=== PATIENT | female | born 1955 | race Caucasian/White ===

== ENCOUNTER → 2018-03-04 08:23 | Outpatient (CLI) | payer OTHER, SELFPAY ==
[2018-03-04 09:47] LABS: Add Manual Diff / Slide Review NO; Basophils Percent Auto 1.2 % (0-2); Eosinophils Percent Auto 9.5 % (2-4); Hemoglobin 13.5 g/dL (12.0-16.0); Lymphocytes Percent Auto 18.3 % (25-40); Mean Corpuscular HGB Conc 33.8 % (30-36); Mean Corpuscular Hemoglobin 31.4 PG (26-34); Mean Corpuscular Volume 92.8 fL (80-100); Monocytes Percent Auto 8.6 % (3-14); Neutrophils Absolute Auto 4200 /uL (3000-5900); Neutrophils Percent Auto 62.4 % (50-75); Platelet Count 216 X10^3/uL (150-400); Red Blood Cell Count 4.32 X10^6/uL (4.0-5.2); Red Cell Distribution Width 12.8 % (11.6-14.8); White Blood Cell Count 6.7 X10^3/uL (4.5-11.0)
[2018-03-04 09:48] LABS: Alanine Aminotransferase 40 IU/L (9-52); Albumin 4.3 g/dL (3.5-5.0); Alkaline Phosphatase 49 U/L (38-126); Aspartate Aminotransferase 25 IU/L (14-36); Bilirubin Total 0.5 mg/dL (0.2-1.3); Blood Urea Nitrogen 15 mg/dL (7-17); Calcium 9.7 mg/dL (8.4-10.2); Carbon Dioxide 31 mmol/L (22-32); Chloride 100 mmol/L (98-107); Cholesterol 201 mg/dL (140-199); Estimated Glomerular Filt Rate > 60.0 mL/min (>60); Globulin 2.2 g/dL (1.7-4.1); Glucose 98 mg/dL (80-110); HDL Cholesterol 66 mg/dL (40-60); HEMOLYSIS < 15 (0-50); LDL Cholesterol Calculated 97 mg/dL (<100); Potassium 4.3 mmol/L (3.4-5.1); Sodium 140 mmol/L (137-145); Total Protein 6.5 g/dL (6.3-8.2); Triglycerides 188 mg/dL (35-150)
[2018-03-04 10:44] LABS: TSH w/ Reflex to FT4 2.02 uIU/mL (0.47-4.68)
== END ==
PROVIDERS: Family Provider Family Medicine; PCP Family Medicine; Visit Provider Family Medicine
DX: E03.9 Hypothyroidism, unspecified (principal)
CPT/HCPCS: 36415; 80053; 80061; 84443; 85025

== ENCOUNTER → 2018-10-08 10:40 | Outpatient (CLI) | payer OTHER, SELFPAY ==
[2018-10-08 11:30] LABS: Blood Urea Nitrogen 16 mg/dL (7-17); Calcium 9.6 mg/dL (8.4-10.2); Carbon Dioxide 28 mmol/L (22-32); Chloride 102 mmol/L (98-107); Estimated Glomerular Filt Rate > 60.0 mL/min (>60); Glucose 105 mg/dL (80-110); HEMOLYSIS < 15 (0-50); Potassium 3.9 mmol/L (3.4-5.1); Sodium 139 mmol/L (137-145)
== END ==
PROVIDERS: Visit Provider Family Medicine
DX: Z51.81 Encounter for therapeutic drug level monitoring (principal); Z79.1 Long term (current) use of non-steroidal anti-inflammatories (NSAID)
CPT/HCPCS: 36415; 80048

== ENCOUNTER → 2019-01-08 10:32 | Outpatient (CLI) | payer OTHER, SELFPAY ==
[2019-01-08 11:23] LABS: BUN Creatinine Ratio 28.3 (6-22); Blood Urea Nitrogen 17 mg/dL (7-17); Calcium 9.8 mg/dL (8.4-10.2); Carbon Dioxide 30 mmol/L (22-32); Chloride 99 mmol/L (98-107); Estimated Glomerular Filt Rate > 60.0 mL/min (>60); Glucose 99 mg/dL (80-110); HEMOLYSIS < 15 (0-50); Sodium 138 mmol/L (137-145)
== END ==
PROVIDERS: Visit Provider Family Medicine
DX: M17.11 Unilateral primary osteoarthritis, right knee (principal); Z79.1 Long term (current) use of non-steroidal anti-inflammatories (NSAID)
CPT/HCPCS: 36415; 80048

== ENCOUNTER → 2019-04-23 14:37 | Outpatient (CLI) | payer OTHER, SELFPAY ==
[2019-04-23 15:41] LABS: Free T3, Triiodothyronine Free 2.87 pg/mL (2.77-5.27); Free T4, Direct Thyroxine 0.85 ng/dL (0.78-2.19)
[2019-04-23 15:55] LABS: Thyroid Stimulating Hormone 1.78 uIU/mL (0.47-4.68)
[2019-04-23 16:05] LABS: Alanine Aminotransferase 57 IU/L (9-52); Albumin 4.5 g/dL (3.5-5.0); Albumin Globulin Ratio 1.9 (1.0-2.8); Alkaline Phosphatase 50 U/L (38-126); Aspartate Aminotransferase 30 IU/L (14-36); BUN Creatinine Ratio 17.8 (6-22); Bilirubin Total 0.5 mg/dL (0.2-1.3); Blood Urea Nitrogen 16 mg/dL (7-17); Calcium 10.2 mg/dL (8.4-10.2); Carbon Dioxide 31 mmol/L (22-32); Chloride 100 mmol/L (98-107); Cholesterol 200 mg/dL (140-199); Estimated Glomerular Filt Rate > 60.0 mL/min (>60); Globulin 2.4 g/dL (1.7-4.1); Glucose 89 mg/dL (80-110); HDL Cholesterol 69 mg/dL (40-60); HEMOLYSIS < 15 (0-50); LDL Cholesterol Calculated 110 mg/dL (<100); Potassium 4.5 mmol/L (3.4-5.1); Sodium 141 mmol/L (137-145); Total Protein 6.9 g/dL (6.3-8.2); Triglycerides 103 mg/dL (35-150)
--- NOTE | 2019-06-18 12:23 | PC.NURSE ---
Per cali Anderson to resume Estriol cream 4-5 weeks post op. Informed pt, pt verbalizes understanding.
== END ==
PROVIDERS: PCP Family Medicine; Visit Provider Family Medicine
DX: E78.5 Hyperlipidemia, unspecified (principal); E03.9 Hypothyroidism, unspecified; I10 Essential (primary) hypertension
CPT/HCPCS: 36415; 80053; 80061; 84439; 84443; 84481

== ENCOUNTER → 2019-06-02 14:34 | Outpatient (CLI) | payer OTHER, SELFPAY ==
--- NOTE | 2019-06-02 14:38 | DI.US.S_ITS ---
PROCEDURE: US PERIPH VENOUS LOW EXTREM BI INDICATIONS: PRE-OP CHECK; HISTORY DVT TECHNIQUE: Real-time imaging, as well as color and pulse Doppler interrogation, were performed of the deep veins of both legs from the inguinal ligament to the popliteal fossa. COMPARISON: None. FINDINGS: Right: The common femoral, femoral and popliteal veins are normally compressible, and free of intraluminal thrombus. Color and pulse Doppler demonstrate normal phasic intravascular flow. There is normal augmentation response to distal compression maneuver. Left: The common femoral, femoral and popliteal veins are normally compressible, and free of intraluminal thrombus. Color and pulse Doppler demonstrate normal phasic intravascular flow. There is normal augmentation response to distal compression maneuver. IMPRESSION: Negative for deep venous thrombosis. Dictated by: Roberto Redman M.D. on 06/02/2019 at 15:47 Approved by: Roberto Redman M.D. on 06/02/2019 at 15:47
== END ==
PROVIDERS: Family Provider Family Medicine; PCP Family Medicine
DX: Z01.818 Encounter for other preprocedural examination (principal); I82.A22 Chronic embolism and thrombosis of left axillary vein
CPT/HCPCS: 93970

== ENCOUNTER → 2019-07-27 12:42 | Outpatient (ROUT) | payer OTHER, SELFPAY | PROVIDERS: Family Provider Family Medicine; PCP Family Medicine; Visit Provider Dermatology | DX: L30.4 Erythema intertrigo (principal); R21 Rash and other nonspecific skin eruption | CPT/HCPCS: 87070; 87077; 87102; 87186; 87205 ==

== ENCOUNTER → 2019-08-12 16:38 | Outpatient (CLI) | payer OTHER, SELFPAY ==
[2019-08-12 15:47] VITALS: BP 167/74; PULSE 103; RESP 15; TEMP 37.3; O2SAT 97; BMI 37.8
--- NOTE | 2019-08-12 15:50 | PC.NURSE ---
pt has healing right knee surgery. was seen at PT today, they told her to come to ED for r/o DVT. pt has history of dvt. started having right calf pain yesterday. calf appears discolored and swollen, as does above knee, and knee, area around incision.
--- NOTE | 2019-08-12 16:17 | ED.EXTPRO ---
HPI - Extremity Problem General Chief complaint: Extremity Problem,Nontraumatic Stated complaint: right calf swelling, thinks DVT Time Seen by Provider: 08/12/19 15:48 Source: patient Mode of arrival: Ambulatory Related Data Home Medications Medication Instructions Recorded Confirmed cholecalciferol (vitamin D3) 1,000 unit DAILY 05/27/19 07/20/19 [Vitamin D3] levocetirizine 5 mg DAILY 05/27/19 07/20/19 Resmed Aircurve 10 BIPAP #1 ea 06/11/19 07/20/19 atorvastatin [Lipitor] 10 mg PO BEDTIME 08/12/19 08/12/19 betamethasone dipropionate 1 applic TOPICAL DAILY 08/12/19 08/12/19 cephalexin 500 mg PO [id number] 08/12/19 08/12/19 fluconazole 150 mg PO [id number] 08/12/19 08/12/19 levothyroxine [Synthroid] 50 mcg PO DAILY 08/12/19 08/12/19 metoprolol succinate [Toprol XL] 50 mg PO DAILY 08/12/19 08/12/19 ondansetron 4 mg PO Q8H PRN 08/12/19 08/12/19 rivaroxaban [Xarelto] 10 mg PO DAILY 08/12/19 08/12/19 scopolamine base 1 mg TOPICAL Q3D 08/12/19 08/12/19 tramadol 50 - 100 mg PO Q6H PRN 08/12/19 08/12/19 triamcinolone acetonide 1 applic TOPICAL DAILY PRN 08/12/19 08/12/19 Previous Rx's Medication Instructions Recorded calcium carbonate 600 mg calcium 600 mg PO ONCE #90 tab 03/17/18 (1,500 mg) tablet [AMIT2%BACLO2%GAB5%MU] 2 % VAG 5XW #1 tube 01/22/19 estriol cream 0.2% See Rx Instructions .ROUTE 05/18/19 .COMPLEX #30 gram meloxicam 15 mg tablet 15 mg PO DAILY #90 tab 05/21/19 ketoconazole 2 % topical cream 1 applictn TOP BID #60 gram 07/27/19 Allergies Allergy/AdvReac Type Severity Reaction Status Date / Time diazepam Allergy Severe eyes Verified 08/12/19 15:47 swelled shut, hard to breath epinephrine Allergy Severe SEIZURES Verified 08/12/19 15:47 oxycodone Allergy Severe FAINTED, Verified 08/12/19 15:47 SEVERE VOMITING, DIZZINESS, LIGHT HEADED clindamycin Allergy Mild RASH Verified 08/12/19 15:47 doxycycline Allergy Unknown RASH Verified 08/12/19 15:47 azithromycin AdvReac Unknown THROW UP Verified 08/12/19 15:47 Patient History Medical History (Updated 06/11/19 @ 12:07 by MARIBEL Delgado) Abnormal Pap smear of cervix (Chronic) Acne (Resolved 1969) Anaphylactic reaction (Resolved) DVT (deep venous thrombosis) (Resolved 2013) Eczema (Chronic) Excessive daytime sleepiness (Chronic) Fibroids (Chronic) Gastro-esophageal reflux disease with esophagitis (Chronic) Hayfever (Chronic 1966) Hepatitis B (Chronic ~1976) History of ovarian cyst (Chronic) History of torn meniscus of left knee (Resolved 2012) Hyperlipidemia (Chronic) Hypothyroidism (Chronic 2009) Infertility (Chronic) Irritable larynx syndrome (Chronic) Lichen planus (Acute) Measles (Resolved) Mumps (Resolved) Obesity (BMI 30-39.9) (Chronic) Obstructive sleep apnea of adult (Chronic) Osteoarthritis (Chronic) Osteoarthritis of right knee (Chronic) PCOS (polycystic ovarian syndrome) (Chronic 1974) Plantar warts (Chronic) Postoperative pulmonary embolism (Resolved 2013) Retinal detachment, left (Resolved 2010) Retinal detachment, right (Resolved 2011) Rosacea (Resolved 2008) Shoulder pain (Chronic) Sleep apnea (Chronic ~2015) Surgical History (Updated 05/27/19 @ 11:12 by Britton Jimenez MD) Anesthesia (Resolved) History of eye surgery (Resolved 02/27/11) History of eye surgery (Resolved 05/15/12) History of knee replacement (Resolved 05/13/14) History of sinus surgery (Resolved 1987) History of surgical removal of meniscus of knee (Resolved 09/03/13) History of tonsillectomy (Resolved 1964) Status post delivery (Resolved 12/1984) Status post delivery (Resolved 06/1981) Status post endometrial ablation (Resolved 2005) Status post loop electrosurgical excision procedure (LEEP) of cervix (Resolved 01/2006) Status post surgical removal of neoplasm of skin (Resolved 1957) Social History Smoking Status: Never smoker Smoking Status: Never smoker Exam Initial Vital Signs Initial Vital Signs: Vital Signs Temperature 99.1 F 08/12/19 15:47 Pulse Rate 103 H 08/12/19 15:47 Respiratory Rate 15 08/12/19 15:47 Blood Pressure 167/74 H 08/12/19 15:47 Pulse Oximetry 97 08/12/19 15:47 Course Orders Ordered: ED Orders 08/12/19 15:54 US periph venous low extrem rt Stat Vital Signs Vital signs: Vital Signs - 8 hr 08/12/19 15:47 Temperature 99.1 F Pulse Rate 103 H Respiratory Rate 15 Blood Pressure 167/74 H Pulse Oximetry 97 Discharge Plan Departure Prescriptions: No Action [AMIT2%BACLO2%GAB5%MU] 2 % VAG 5XW Qty: 1 RF: 1 ketoconazole 2 % cream 1 applictn TOP BID Qty: 60 RF: 0 betamethasone dipropionate 0.05 % cream See Rx Instructions .ROUTE .COMPLEX Qty: 45 RF: 0 estriol cream 0.2% cream See Rx Instructions .ROUTE .COMPLEX Qty: 30 RF: 11 calcium carbonate 600 mg calcium (1,500 mg) tablet 600 mg PO ONCE Qty: 90 RF: 0 atorvastatin [Lipitor] 10 mg tablet 10 mg PO HS Qty: 90 RF: 3 levothyroxine [Synthroid] 50 mcg tablet 50 mcg PO QDAY Qty: 90 RF: 3 meloxicam 15 mg tablet 15 mg PO DAILY Qty: 90 RF: 0 metoprolol succinate [Toprol XL] 50 mg tablet extended release 24 hr 50 mg PO QDAY Qty: 90 RF: 3 cholecalciferol (vitamin D3) [Vitamin D3] 1,000 unit Tablet,Chewable 1,000 unit DAILY RF: 0 levocetirizine 5 mg 5 mg DAILY RF: 0 (DME) Resmed Aircurve 10 BIPAP Qty: 1 RF: 0
[2019-08-12 16:32] VITALS: BP 133/62; PULSE 90; RESP 19; O2SAT 100
--- NOTE | 2019-08-12 16:41 | DI.US.S_ITS ---
PROCEDURE: US PERIP VENOUS LOW EXTREM RT INDICATIONS: RIGHT CALF PAIN. R/O DVT TECHNIQUE: Real-time imaging, as well as color and pulse Doppler interrogation, were performed of the lower extremity deep veins from the inguinal ligament to the popliteal fossa. COMPARISON: [facility], , US PERIP VENOUS LOW EXTREM BI, 06/02/2019, 14:47. FINDINGS: Thrombus is identified within the popliteal vein, which does not appear to be occlusive. No thrombus is seen extending into the superficial femoral vein, profunda femoral vein, or common femoral vein. IMPRESSION: Nonocclusive deep vein thrombosis of the popliteal vein. Note: The manager fashion attempted contacting the providers office at 1725 hours (PST). A message was left on the office voicemail. No return call was received. Subsequently, the providers cellular number was contacted by the manager fashion and a voicemail was left. No return call was received by 1745 hours (PST). Dictated by: Mich Logan M.D. on 08/12/2019 at 16:53 Approved by: Mich Logan M.D. on 08/12/2019 at 16:59
== END ==
LOC: ED 15:48 → US 16:38
PROVIDERS: Family Provider Family Medicine; PCP Family Medicine; Visit Provider Physician Assistant Surgical
DX: I82.431 Acute embolism and thrombosis of right popliteal vein (principal); M79.89 Other specified soft tissue disorders
CPT/HCPCS: 93971

== ENCOUNTER → 2019-08-14 13:23 | Outpatient (CLI) | payer OTHER, SELFPAY ==
[2019-08-14 13:54] LABS: Add Manual Diff / Slide Review NO; Basophils Absolute Auto 100 /uL (0-100); Basophils Percent Auto 0.6 % (0-2); Eosinophils Absolute Auto 300 /uL (0-450); Eosinophils Percent Auto 3.6 % (2-4); Hematocrit 30.9 % (36-46); Hemoglobin 10.5 g/dL (12.0-16.0); Lymphocytes Absolute Auto 1100 /uL (1100-4500); Lymphocytes Percent Auto 14.4 % (25-40); Mean Corpuscular HGB Conc 33.9 % (30-36); Mean Corpuscular Hemoglobin 31.5 PG (26-34); Mean Corpuscular Volume 92.8 fL (80-100); Monocytes Absolute Auto 800 /uL (0-900); Monocytes Percent Auto 10.5 % (3-14); Neutrophils Absolute Auto 5600 /uL (1500-7000); Neutrophils Percent Auto 70.9 % (50-75); Platelet Count 364 X10^3/uL (150-400); Red Blood Cell Count 3.33 X10^6/uL (4.0-5.2); Red Cell Distribution Width 12.5 % (11.6-14.8); White Blood Cell Count 7.9 X10^3/uL (4.5-11.0)
[2019-08-14 14:05] LABS: Alanine Aminotransferase 58 IU/L (<35); Albumin 4.2 g/dL (3.5-5.0); Albumin Globulin Ratio 1.6 (1.0-2.8); Alkaline Phosphatase 68 U/L (38-126); Aspartate Aminotransferase 37 IU/L (14-36); BUN Creatinine Ratio 26.7 (6-22); Bilirubin Total 1.1 mg/dL (0.2-1.3); Blood Urea Nitrogen 16 mg/dL (7-17); Calcium 9.4 mg/dL (8.4-10.2); Carbon Dioxide 31 mmol/L (22-32); Chloride 97 mmol/L (98-107); Estimated Glomerular Filt Rate > 60.0 mL/min (>60); Globulin 2.7 g/dL (1.7-4.1); Glucose 109 mg/dL (80-110); HEMOLYSIS < 15 (0-50); Potassium 4.5 mmol/L (3.4-5.1); Sodium 136 mmol/L (137-145); Total Protein 6.9 g/dL (6.3-8.2)
== END ==
PROVIDERS: PCP Family Medicine; Visit Provider Family Medicine
DX: D64.9 Anemia, unspecified (principal); I10 Essential (primary) hypertension
CPT/HCPCS: 36415; 80053; 85025

== ENCOUNTER 2019-08-18 13:47 | Emergency (ER) | payer OTHER, SELFPAY ==
[2019-08-18 13:49] VITALS: BP 141/64; PULSE 112; RESP 24; TEMP 36.8; O2SAT 100
[2019-08-18 15:00] VITALS: BP 151/64; PULSE 91; RESP 17; O2SAT 97
--- NOTE | 2019-08-18 15:00 | DI.US.S_ITS ---
PROCEDURE: US PERIPH VENOUS LOW EXTREM RT INDICATIONS: H/O DVT. NOW WORSE PAIN/SWELLING. PLEASE ALSO LOOK AT JOINT TECHNIQUE: Real-time imaging, as well as color and pulse Doppler interrogation, were performed of the lower extremity deep veins from the inguinal ligament to the popliteal fossa. COMPARISON: [facility], , PERIP VENOUS LOW EXTREM RT, 08/12/2019, 16:54. FINDINGS: Occlusive thrombus is visualized within the distal right popliteal vein, unchanged from the prior study dated 08/12/19. The more central deep veins of the right lower extremity are patent. Several complex fluid collections are visualized within the subcutaneous tissues of the right lower extremity including a 4.3 x 2.5 x 2.9 cm fluid collection within the popliteal fossa, a 7.9 x 2.4 x 4.8 cm fluid collection within the distal medial right thigh, and a 7.8 x 2.2 x 2.3 cm lesion within the distal right lateral thigh. IMPRESSION: 1. Stable occlusive thrombus within the distal right popliteal vein similar in extent to the prior ultrasound dated 08/12/19. 2. Multiple subcutaneous complex fluid collection suggesting postoperative hematomas. Abscess cannot be excluded. If further characterization is warranted, MRI or CT of this region could be used. Dictated by: Katiuska Hayes M.D. on 08/18/2019 at 15:24 Approved by: Katiuska Hayes M.D. on 08/18/2019 at 15:28
[2019-08-18 15:10] LABS: INR 1.5 (0.9-1.3); Prothrombin Time 17.8 SECONDS (10.1-12.7)
--- NOTE | 2019-08-18 15:16 | ED.RECABL ---
HPI - Recheck/Abnormal Lab/Rx General Chief Complaint: Recheck/Abnormal Lab/Rx Stated Complaint: embolis,pain in back of knee after knee replacemen Time Seen by Provider: 08/18/19 13:58 Source: patient Mode of arrival: Ambulatory Limitations: no limitations History of Present Illness HPI narrative: Patient comes emergency department complaining of increased right knee pain since yesterday. Patient denies any triggering event. She states the pain seemed come up gradually. The patient is status post total right knee arthroplasty on August 06 and was diagnosed with a DVT 5 days ago in the same leg. Patient is currently on Lovenox and Coumadin and her 1st and only INR was 1.2. Patient denies any chest pain or shortness of breath. She states that she has not had any fevers. She denies any increase in swelling of the knee. No redness. No wound dehiscence or drainage. No other complaints at this time. Related Data Home Medications Medication Instructions Recorded Confirmed levocetirizine 5 mg PO DAILY 05/27/19 08/24/19 Resmed Aircurve 10 BIPAP #1 ea 06/11/19 08/24/19 atorvastatin [Lipitor] 10 mg PO BEDTIME 08/12/19 08/24/19 betamethasone dipropionate 1 applic TOPICAL DAILY 08/12/19 08/24/19 levothyroxine [Synthroid] 50 mcg PO DAILY 08/12/19 08/24/19 metoprolol succinate [Toprol XL] 50 mg PO DAILY 08/12/19 08/24/19 scopolamine base 1 mg TOPICAL Q3D 08/12/19 08/24/19 tramadol 50 - 100 mg PO Q6H PRN 08/12/19 08/24/19 triamcinolone acetonide 1 applic TOPICAL DAILY PRN 08/12/19 08/24/19 acetaminophen 650 mg PO Q6H PRN 08/18/19 08/24/19 ondansetron 4 mg PO Q8H PRN 08/24/19 08/24/19 oxycodone 5 mg PO Q6H PRN 08/24/19 08/24/19 Previous Rx's Medication Instructions Recorded [AMIT2%BACLO2%GAB5%MU] 2 % VAG 5XW #1 tube 01/22/19 estriol cream 0.2% See Rx Instructions .ROUTE 05/18/19 .COMPLEX #30 gram ketoconazole 2 % topical cream 1 applictn TOP BID #60 gram 07/27/19 enoxaparin 80 mg/0.8 mL 80 mg SUBCUT Q12H #8 ml 08/24/19 subcutaneous syringe warfarin 2.5 mg tablet 7.5 mg PO DAILY #120 tab 08/24/19 Allergies Allergy/AdvReac Type Severity Reaction Status Date / Time diazepam Allergy Severe eyes Verified 08/18/19 18:09 swelled shut, hard to breath epinephrine Allergy Severe SEIZURES Verified 08/18/19 18:09 oxycodone Allergy Severe FAINTED, Verified 08/18/19 18:09 SEVERE VOMITING, DIZZINESS, LIGHT HEADED clindamycin Allergy Mild RASH Verified 08/18/19 18:09 doxycycline Allergy Unknown RASH Verified 08/18/19 18:09 azithromycin AdvReac Unknown THROW UP Verified 08/18/19 18:09 Review of Systems Constitutional Constitutional: Denies chills, Denies fatigue, Denies fever(s), Denies frequent falls, Denies lethargy and Denies weakness Eyes Eyes: Denies change in vision, Denies eye discharge, Denies irritation and Denies loss of vision ENT Ears, Nose, Mouth, and Throat: Denies change in voice, Denies dizziness, Denies neck pain, Denies sore throat and Denies throat swelling Cardiovascular Cardiovascular: Denies chest pain, Denies irregular heart rhythm, Denies lightheadedness, Denies palpitations, Denies dyspnea, Denies dyspnea on exertion and Denies orthopnea Respiratory Respiratory: Denies cough, Denies dyspnea, Denies dyspnea on exertion and Denies wheezing Gastrointestinal Gastrointestinal: Denies abdominal pain, Denies change in bowel habits, Denies diarrhea, Denies nausea and Denies vomiting Genitourinary Genitourinary: Denies hematuria, Denies flank pain, Denies urinary incontinence and Denies urinary urgency Musculoskeletal Musculoskeletal: Denies back pain, Denies muscle weakness, Denies neck pain, Denies numbness and Denies tingling Comments: Right knee pain Integumentary/Breasts Skin/Breast: Denies pruritus, Denies erythema, Denies rash and Denies wounds Neurologic Neurologic: Denies behavioral changes, Denies confusion, Denies dizziness, Denies frequent falls, Denies loss of vision, Denies numbness, Denies tingling and Denies weakness Psychiatric Psychiatric: Denies anxiety, Denies behavioral changes, Denies confusion, Denies depression, Denies homicidal ideation and Denies suicidal ideation Endocrine Endocrine: Denies fatigue, Denies flushing and Denies palpitations Hematologic/Lymphatic Hematologic/Lymphatic: Denies easy bruising Allergic/Immunologic Allergic/Immunologic: Denies urticaria, Denies throat swelling and Denies wheezing Patient History Medical History Abnormal Pap smear of cervix (Chronic) Acne (Resolved 1969) Anaphylactic reaction (Resolved) DVT (deep venous thrombosis) (Resolved 2013) Eczema (Chronic) Excessive daytime sleepiness (Chronic) Fibroids (Chronic) Gastro-esophageal reflux disease with esophagitis (Chronic) Hayfever (Chronic 1966) Hepatitis B (Chronic ~1976) History of ovarian cyst (Chronic) History of torn meniscus of left knee (Resolved 2012) Hyperlipidemia (Chronic) Hypothyroidism (Chronic 2009) Infertility (Chronic) Irritable larynx syndrome (Chronic) Lichen planus (Acute) Measles (Resolved) Mumps (Resolved) Obesity (BMI 30-39.9) (Chronic) Obstructive sleep apnea of adult (Chronic) Osteoarthritis (Chronic) Osteoarthritis of right knee (Chronic) PCOS (polycystic ovarian syndrome) (Chronic 1974) Plantar warts (Chronic) Postoperative pulmonary embolism (Resolved 2013) Retinal detachment, left (Resolved 2010) Retinal detachment, right (Resolved 2011) Rosacea (Resolved 2008) Shoulder pain (Chronic) Sleep apnea (Chronic ~2015) Surgical History Anesthesia (Resolved) History of eye surgery (Resolved 02/27/11) History of eye surgery (Resolved 05/15/12) History of knee replacement (Resolved 05/13/14) History of sinus surgery (Resolved 1987) History of surgical removal of meniscus of knee (Resolved 09/03/13) History of tonsillectomy (Resolved 1964) Status post delivery (Resolved 12/1984) Status post delivery (Resolved 06/1981) Status post endometrial ablation (Resolved 2005) Status post loop electrosurgical excision procedure (LEEP) of cervix (Resolved 01/2006) Status post surgical removal of neoplasm of skin (Resolved 1957) Family History Father Heart disease Mother Osteoporosis Stroke Celiac disease Glaucoma COPD (chronic obstructive pulmonary disease) Emphysema lung Sister Age: 60 Alcoholic Drug abuse Hepatitis C Son No problems noted. Son [id number] transgender person PCOS (polycystic ovarian syndrome) Social History Smoking Status: Never smoker Smoking Status: Never smoker Exam Initial Vital Signs Initial Vital Signs: Vital Signs Temperature 98.2 F 08/18/19 13:49 Pulse Rate 112 H 08/18/19 13:49 Respiratory Rate 24 08/18/19 13:49 Blood Pressure 141/64 H 08/18/19 13:49 Pulse Oximetry 100 08/18/19 13:49 Const General: cooperative and well developed Nutritional Appearance: well nourished Orientation: alert, awake, oriented x3 and not confused HENMT Head: normocephalic and atraumatic Ears: external ears normal Nose: external nose normal and No nasal discharge Face and sinus: face symmetric and No dry mucous membranes Mouth: oral mucosae normal and moist mucous membranes Teeth and gingiva: dentition normal Eyes General: appearance normal, both eyes and all related structures Eyelids: eyelids normal Conjunctivae: conjunctivae normal Sclera: sclerae normal Pupils: PERRL EOM: EOM intact bilaterally Neck Neck: normal visual inspection, trachea midline, No lymphadenopathy, No midline deformity and No JVD Lymphatic: No lymphedema Chest Chest: normal inspection of the chest Resp Effort & Inspection: normal respiratory effort, able to speak in complete sentences, no respiratory distress and no use of accessory muscles Auscultation: clear to auscultation bilaterally, no rales, no rhonchi and no wheezes Cardio Rate: regular rate Rhythm: regular rhythm Heart Sounds: no click, no gallops, no murmurs and no rubs Pulses: normal peripheral pulses GI Inspection: non-distended Palpation: soft, no hepatosplenomegaly, No guarding, No pulsatile mass and No tender Back/Spine/Pelvis Back: No CVA tenderness Cervical Spine: cervical ROM normal and No pain with cervical ROM Thoracic/Lumbar Spine: thoracic and lumbar spine normal to inspection Skin General: no rashes or lesions noted, No jaundice and No petechiae Neuro General: alert, oriented x3, gait normal and no focal motor deficits Speech: speech normal Extrem Other: Patient has a vertical midline incision over her right knee with surgical dressing in place. Patient has resolving contusion around the area, but no erythema. No induration. No fluctuance. She has point tenderness over the lateral knee at the joint line anteriorly, which she indicates is the area of maximal pain. Psych Appearance: well kempt Mental Status: mental status grossly normal Attitude: cooperative Thought Content: normal and suicidality Judgment: judgment good Course Course Course Narrative: Patient was treated symptomatically with IV Toradol and Dilaudid, and evaluated with a repeat ultrasound of her right lower extremity, which did not show extension of the clot. There is no evidence of infection, and the patient did not have increased swelling to indicate a hemarthrosis or enlarging effusion. I discussed with the patient and her that her labs are unremarkable and her ultrasound shows a fluid collection around the knee, but is otherwise negative. She should continue her current regimen and follow up, as planned. She should discuss with her orthopedist whether she is clear to go back to physical therapy, as keeping the knee moving would probably be very helpful in moving some of the fluid out and maintaining the patient's range of motion. Orders Ordered: Discontinued Medications Hydrocodone Bitart/Acetaminophen (Vicodin 5/325 Prepack) 1 bottle MISC SEEINSTR ONE Stop: 08/18/19 18:09 Last Admin: 08/18/19 18:12 Dose: 1 bottle Documented by: CAM Hydromorphone HCl (Dilaudid) 0.5 mg IV NOW ONE Stop: 08/18/19 15:16 Last Admin: 08/18/19 15:34 Dose: 0.5 mg Documented by: VANESSA Hydromorphone HCl (Dilaudid) 0.5 mg IV NOW ONE Stop: 08/18/19 16:42 Last Admin: 08/18/19 16:47 Dose: 0.5 mg Documented by: GUZMAN Ketorolac Tromethamine (Toradol) 15 mg IV NOW ONE Stop: 08/18/19 15:16 Last Admin: 08/18/19 15:33 Dose: 15 mg Documented by: VANESSA Vital Signs Vital signs: Vital Signs - 8 hr 08/18/19 13:49 Temperature 98.2 F Pulse Rate 112 H Respiratory Rate 24 Blood Pressure 141/64 H Pulse Oximetry 100 MDM - Recheck/Abnormal Lab/Rx Medical Records Attestation: I reviewed the patient's medical records. Lab Data Attestation: I reviewed the patient's lab results. Result diagrams: 08/18/19 14:56 08/18/19 14:56 Labs: Lab Results 08/18/19 08/18/19 08/18/19 Range/Units 14:56 14:56 14:56 WBC 11.4 H (4.5-11.0) X10^3/uL RBC 3.22 L (4.0-5.2) X10^6/uL Hgb 10.5 L (12.0-16.0) g/dL Hct 29.4 L (36-46) % MCV 91.2 (80-100) fL MCH 32.5 (26-34) PG MCHC 35.6 (30-36) % RDW 12.8 (11.6-14.8) % Plt Count 384 (150-400) X10^3/uL Neut % (Auto) 77.2 H (50-75) % Lymph % (Auto) 10.4 L (25-40) % Edmonson % (Auto) 8.9 (3-14) % Eos % (Auto) 2.7 (2-4) % Baso % (Auto) 0.8 (0-2) % Neut # (Auto) 8800 H (7167-3182) /uL Lymph # (Auto) 1200 (6688-7399) /uL Edmonson # (Auto) 1000 H (0-900) /uL Eos # (Auto) 300 (0-450) /uL Baso # (Auto) 100 (0-100) /uL ESR 64 H (0-20) MM/HR PT 17.8 H (10.1-12.7) SECONDS INR 1.5 H (0.9-1.3) Sodium (137-145) mmol/L Potassium (3.4-5.1) mmol/L Chloride (98-107) mmol/L Carbon Dioxide (22-32) mmol/L BUN (7-17) mg/dL Creatinine (0.52-1.04) mg/dL Estimated GFR (>60) mL/min BUN/Creatinine Ratio (6-22) Glucose (80-110) mg/dL Calcium (8.4-10.2) mg/dL Total Bilirubin (0.2-1.3) mg/dL AST (14-36) IU/L ALT (<35) IU/L Alkaline Phosphatase (38-126) U/L C-Reactive Protein (<1.0) mg/dL Total Protein (6.3-8.2) g/dL Albumin (3.5-5.0) g/dL Globulin (1.7-4.1) g/dL Albumin/Globulin Ratio (1.0-2.8) Procalcitonin < 0.05 (<0.5) ng/mL 08/18/19 Range/Units 14:56 WBC (4.5-11.0) X10^3/uL RBC (4.0-5.2) X10^6/uL Hgb (12.0-16.0) g/dL Hct (36-46) % MCV (80-100) fL MCH (26-34) PG MCHC (30-36) % RDW (11.6-14.8) % Plt Count (150-400) X10^3/uL Neut % (Auto) (50-75) % Lymph % (Auto) (25-40) % Edmonson % (Auto) (3-14) % Eos % (Auto) (2-4) % Baso % (Auto) (0-2) % Neut # (Auto) (3635-7607) /uL Lymph # (Auto) (3165-2834) /uL Edmonson # (Auto) (0-900) /uL Eos # (Auto) (0-450) /uL Baso # (Auto) (0-100) /uL ESR (0-20) MM/HR PT (10.1-12.7) SECONDS INR (0.9-1.3) Sodium 136 L (137-145) mmol/L Potassium 4.1 (3.4-5.1) mmol/L Chloride 97 L (98-107) mmol/L Carbon Dioxide 30 (22-32) mmol/L BUN 19 H (7-17) mg/dL Creatinine 0.60 (0.52-1.04) mg/dL Estimated GFR > 60.0 (>60) mL/min BUN/Creatinine Ratio 31.7 H (6-22) Glucose 89 (80-110) mg/dL Calcium 9.9 (8.4-10.2) mg/dL Total Bilirubin 0.8 (0.2-1.3) mg/dL AST 43 H (14-36) IU/L ALT 71 H (<35) IU/L Alkaline Phosphatase 75 (38-126) U/L C-Reactive Protein 2.7 H (<1.0) mg/dL Total Protein 7.2 (6.3-8.2) g/dL Albumin 4.5 (3.5-5.0) g/dL Globulin 2.7 (1.7-4.1) g/dL Albumin/Globulin Ratio 1.7 (1.0-2.8) Procalcitonin (<0.5) ng/mL Imaging Data US - DVT: Radiologist's Impression: PROCEDURE: US PERIP VENOUS LOW EXTREM RT INDICATIONS: H/O DVT. NOW WORSE PAIN/SWELLING. PLEASE ALSO LOOK AT JOINT TECHNIQUE: Real-time imaging, as well as color and pulse Doppler interrogation, were performed of the lower extremity deep veins from the inguinal ligament to the popliteal fossa. COMPARISON: [facility] [place], US PERIP VENOUS LOW EXTREM RT, 08/12/2019, 16:54. FINDINGS: Occlusive thrombus is visualized within the distal right popliteal vein, unchanged from the prior study dated 08/12/19. The more central deep veins of the right lower extremity are patent. Several complex fluid collections are visualized within the subcutaneous tissues of the right lower extremity including a 4.3 x 2.5 x 2.9 cm fluid collection within the popliteal fossa, a 7.9 x 2.4 x 4.8 cm fluid collection within the distal medial right thigh, and a 7.8 x 2.2 x 2.3 cm lesion within the distal right lateral thigh. IMPRESSION: 1. Stable occlusive thrombus within the distal right popliteal vein similar in extent to the prior ultrasound dated 08/12/19. 2. Multiple subcutaneous complex fluid collection suggesting postoperative hematomas. Abscess cannot be excluded. If further characterization is warranted, MRI or CT of this region could be used. Dictated by: Katiuska Hayes M.D. on 08/18/2019 at 15:24 Approved by: Katiuska Hayes M.D. on 08/18/2019 at 15:28 Discharge Plan Departure Patient Disposition: Home Clinical Impression: Post-op pain DVT (deep venous thrombosis) Qualifiers: DVT location: lower extremity Affected thrombotic vein of extremity: popliteal Chronicity: chronic Laterality: right Qualified Code(s): I82.531 - Chronic embolism and thrombosis of right popliteal vein Discharge Date/Time: 08/18/19 18:21 Instructions: DI for Deep Vein Thrombosis Activity Restrictions/Additional Instructions: Your ultrasound shows that you do not have any worsening of the clot in your leg. You have some fluid around your knee which is most likely postoperative in nature. There is no sign of infection. It is important is that you keep your knee moving to some degree, in order to prevent stiffening and worsening of pain. You will need to work with your orthopedist on how much they would like you to do this in the setting of your recent surgery and your recent diagnosis of blood clot. Please continue the blood thinners as prescribed. Take the pain medication, as needed. Prescriptions: No Action [AMIT2%BACLO2%GAB5%MU] 2 % VAG 5XW Qty: 1 RF: 1 ketoconazole 2 % cream 1 applictn TOP BID Qty: 60 RF: 0 estriol cream 0.2% cream See Rx Instructions .ROUTE .COMPLEX Qty: 30 RF: 11 warfarin 2.5 mg tablet 7.5 mg PO DAILY Qty: 120 RF: 0 enoxaparin 80 mg/0.8 mL syringe 80 mg SUBCUT Q12H Qty: 8 RF: 0 levocetirizine 5 mg Tablet 5 mg PO DAILY RF: 0 tramadol 50 mg tablet 50 - 100 mg PO Q6H PRN (Reason: pain) RF: 0 triamcinolone acetonide 0.1 % ointment 1 applic TOPICAL DAILY PRN (Reason: Dry Skin) RF: 0 betamethasone dipropionate 0.05 % cream 1 applic TOPICAL DAILY RF: 0 scopolamine base 1 mg over 3 days patch 3 day 1 mg topical Q3D RF: 0 atorvastatin [Lipitor] 10 mg tablet 10 mg PO BEDTIME RF: 0 metoprolol succinate [Toprol XL] 50 mg tablet extended release 24 hr 50 mg PO DAILY RF: 0 levothyroxine [Synthroid] 50 mcg tablet 50 mcg PO DAILY RF: 0 acetaminophen 325 mg Tablet 650 mg PO Q6H PRN (Reason: pain) RF: 0 ondansetron 4 mg Tablet,Disintegrating 4 mg PO Q8H PRN (Reason: Nausea) RF: 0 oxycodone 5 mg Tablet 5 mg PO Q6H PRN (Reason: pain) RF: 0 (DME) Resmed Aircurve 10 BIPAP Qty: 1 RF: 0 Referrals: Carly Kong DO [Primary Care Provider] -
[2019-08-18 15:17] LABS: Alanine Aminotransferase 71 IU/L (<35); Albumin 4.5 g/dL (3.5-5.0); Albumin Globulin Ratio 1.7 (1.0-2.8); Alkaline Phosphatase 75 U/L (38-126); Aspartate Aminotransferase 43 IU/L (14-36); BUN Creatinine Ratio 31.7 (6-22); Bilirubin Total 0.8 mg/dL (0.2-1.3); Blood Urea Nitrogen 19 mg/dL (7-17); C-Reactive Protein Quant 2.7 mg/dL (<1.0); Calcium 9.9 mg/dL (8.4-10.2); Carbon Dioxide 30 mmol/L (22-32); Chloride 97 mmol/L (98-107); Estimated Glomerular Filt Rate > 60.0 mL/min (>60); Globulin 2.7 g/dL (1.7-4.1); Glucose 89 mg/dL (80-110); HEMOLYSIS < 15 (0-50); Potassium 4.1 mmol/L (3.4-5.1); Sodium 136 mmol/L (137-145); Total Protein 7.2 g/dL (6.3-8.2)
[2019-08-18 15:20] LABS: Erythrocyte Sedimentation Rate 64 MM/HR (0-20)
[2019-08-18 15:22] LABS: Add Manual Diff / Slide Review NO; Basophils Absolute Auto 100 /uL (0-100); Basophils Percent Auto 0.8 % (0-2); Eosinophils Absolute Auto 300 /uL (0-450); Eosinophils Percent Auto 2.7 % (2-4); Hematocrit 29.4 % (36-46); Hemoglobin 10.5 g/dL (12.0-16.0); Lymphocytes Absolute Auto 1200 /uL (1100-4500); Lymphocytes Percent Auto 10.4 % (25-40); Mean Corpuscular HGB Conc 35.6 % (30-36); Mean Corpuscular Hemoglobin 32.5 PG (26-34); Mean Corpuscular Volume 91.2 fL (80-100); Monocytes Absolute Auto 1000 /uL (0-900); Monocytes Percent Auto 8.9 % (3-14); Neutrophils Absolute Auto 8800 /uL (1500-7000); Neutrophils Percent Auto 77.2 % (50-75); Platelet Count 384 X10^3/uL (150-400); Red Blood Cell Count 3.22 X10^6/uL (4.0-5.2); Red Cell Distribution Width 12.8 % (11.6-14.8); White Blood Cell Count 11.4 X10^3/uL (4.5-11.0)
[2019-08-18 15:30] VITALS: PULSE 90; RESP 15; O2SAT 98
[2019-08-18] MEDS: KETOROLAC 60 MG/2 ML VIAL 15 MG IV (15:33)
[2019-08-18] MEDS: HYDROMORPHONE 0.5 MG INJ IV ×2 (15:34→16:47)
[2019-08-18 16:03] LABS: Procalcitonin < 0.05 ng/mL (<0.5)
[2019-08-18 16:27] VITALS: BP 166/67; PULSE 84; RESP 16; O2SAT 96
[2019-08-18 17:55] VITALS: BP 171/77; PULSE 88; RESP 14
[2019-08-18] MEDS: HYDROCODONE/ACET 5/325 PREPACK 1 BOTTLE MISC (18:12)
--- NOTE | 2019-08-18 18:18 | PC.NURSE ---
Pt / upset that we can not give po dilaudid to go home. Discussed other options. She states that she has gotten nauseas with norco in the past but has zofran at home to be able to tolerate it. Given pre pack of norco to go. Pt / further concerned that it is only 4 tablets. Discussed limitations of ability to dispense medications. Discussed that there was a 24 hour pharmacy in [place] if need arises.
== END 2019-08-18 18:21 | disposition home or self-care (01) ==
PROVIDERS: Emergency Provider Emergency Medicine; PCP Family Medicine
DX: G89.18 Other acute postprocedural pain (principal); I82.531 Chronic embolism and thrombosis of right popliteal vein; Z79.01 Long term (current) use of anticoagulants
CPT/HCPCS: 36415; 80053; 84145; 85025; 85610; 85651; 86140; 93971; 96374; 96375; 96376; 99284; J1170; J1885

== ENCOUNTER 2019-08-20 03:13 | Emergency (ER) | payer OTHER, SELFPAY ==
[2019-08-20 03:15] VITALS: BP 177/90; PULSE 106; RESP 16; TEMP 36.8; O2SAT 100; BMI 36.1
--- NOTE | 2019-08-20 03:22 | ED_ITS ---
HPI - Extremity Injury (Lower) General Chief Complaint: Extremity Problem,Nontraumatic Stated Complaint: severe pain rt knee replacement Time Seen by Provider: 08/20/19 03:15 Source: patient and family Mode of arrival: Wheelchair Limitations: no limitations History of Present Illness HPI Narrative: 64F nonsmokeer with history of hyperlipidemia, recent R total knee in [place] with post op DVT on coumadin presents with ongoing R knee pain. She denies any injury, twisting, or swelling. She was seen on 08/18 and pain was controlled in the ED. She was given hydrocodone prepack and an Rx for Dilaudid, but she couldn't get it filled due to the holiday. She is here today because she only has 1/2 of a vicodin left and has terrible pain. She has an appointment today with her orthopedic office. She denies other symptoms such as dizziness, weakness or lightheadedness. She denies any chest pain or shortness of breath. She denies any numbness, tingling or weakness. MD complaint: knee injury Onset (ago): day(s) Severity: severe Relieving factors: rest Exacerbating factors: weight bearing, movement and palpation Other symptoms: none Related Data Home Medications Medication Instructions Recorded Confirmed levocetirizine 5 mg PO DAILY 05/27/19 08/18/19 Resmed Aircurve 10 BIPAP #1 ea 06/11/19 08/18/19 atorvastatin [Lipitor] 10 mg PO BEDTIME 08/12/19 08/18/19 betamethasone dipropionate 1 applic TOPICAL DAILY 08/12/19 08/18/19 levothyroxine [Synthroid] 50 mcg PO DAILY 08/12/19 08/18/19 metoprolol succinate [Toprol XL] 50 mg PO DAILY 08/12/19 08/18/19 scopolamine base 1 mg TOPICAL Q3D 08/12/19 08/18/19 tramadol 50 - 100 mg PO Q6H PRN 08/12/19 08/18/19 triamcinolone acetonide 1 applic TOPICAL DAILY PRN 08/12/19 08/18/19 acetaminophen 650 mg PO Q6H PRN 08/18/19 08/18/19 warfarin 5 mg PO DAILY 08/18/19 08/18/19 Previous Rx's Medication Instructions Recorded [AMIT2%BACLO2%GAB5%MU] 2 % VAG 5XW #1 tube 01/22/19 estriol cream 0.2% See Rx Instructions .ROUTE 05/18/19 .COMPLEX #30 gram ketoconazole 2 % topical cream 1 applictn TOP BID #60 gram 07/27/19 enoxaparin 80 mg/0.8 mL 80 mg SUBCUT Q12H #8 ml 08/17/19 subcutaneous syringe hydromorphone [Dilaudid] 1 mg PO Q6H PRN #10 tab 08/18/19 Allergies Allergy/AdvReac Type Severity Reaction Status Date / Time diazepam Allergy Severe eyes Verified 08/18/19 18:09 swelled shut, hard to breath epinephrine Allergy Severe SEIZURES Verified 08/18/19 18:09 oxycodone Allergy Severe FAINTED, Verified 08/18/19 18:09 SEVERE VOMITING, DIZZINESS, LIGHT HEADED clindamycin Allergy Mild RASH Verified 08/18/19 18:09 doxycycline Allergy Unknown RASH Verified 08/18/19 18:09 azithromycin AdvReac Unknown THROW UP Verified 08/18/19 18:09 Review of Systems Constitutional Constitutional: Denies chills, Denies fatigue, Denies fever(s), Denies frequent falls, Denies lethargy and Denies weakness Eyes Eyes: Denies change in vision, Denies eye discharge, Denies irritation and Denies loss of vision ENT Ears, Nose, Mouth, and Throat: Denies change in voice, Denies dizziness, Denies neck pain, Denies sore throat and Denies throat swelling Cardiovascular Cardiovascular: Denies chest pain, Denies irregular heart rhythm, Denies lightheadedness, Denies palpitations, Denies dyspnea, Denies dyspnea on exertion and Denies orthopnea Respiratory Respiratory: Denies cough, Denies dyspnea, Denies dyspnea on exertion and Denies wheezing Gastrointestinal Gastrointestinal: Denies abdominal pain, Denies change in bowel habits, Denies diarrhea, Denies nausea and Denies vomiting Genitourinary Genitourinary: Denies hematuria, Denies flank pain, Denies urinary incontinence and Denies urinary urgency Musculoskeletal Musculoskeletal: Denies back pain, Reports joint swelling, Reports limited range of motion, Denies muscle weakness, Denies neck pain, Denies numbness and Denies tingling Integumentary/Breasts Skin/Breast: Denies pruritus, Denies erythema, Denies rash and Denies wounds Neurologic Neurologic: Denies behavioral changes, Denies confusion, Denies dizziness, Denies frequent falls, Denies loss of vision, Denies numbness, Denies tingling and Denies weakness Psychiatric Psychiatric: Denies anxiety, Denies behavioral changes, Denies confusion, Denies depression, Denies homicidal ideation and Denies suicidal ideation Endocrine Endocrine: Denies fatigue, Denies flushing and Denies palpitations Hematologic/Lymphatic Hematologic/Lymphatic: Denies easy bruising Allergic/Immunologic Allergic/Immunologic: Denies urticaria, Denies throat swelling and Denies wheezing Patient History Medical History Abnormal Pap smear of cervix (Chronic) Acne (Resolved 1969) Anaphylactic reaction (Resolved) DVT (deep venous thrombosis) (Resolved 2013) Eczema (Chronic) Excessive daytime sleepiness (Chronic) Fibroids (Chronic) Gastro-esophageal reflux disease with esophagitis (Chronic) Hayfever (Chronic 1966) Hepatitis B (Chronic ~1976) History of ovarian cyst (Chronic) History of torn meniscus of left knee (Resolved 2012) Hyperlipidemia (Chronic) Hypothyroidism (Chronic 2009) Infertility (Chronic) Irritable larynx syndrome (Chronic) Lichen planus (Acute) Measles (Resolved) Mumps (Resolved) Obesity (BMI 30-39.9) (Chronic) Obstructive sleep apnea of adult (Chronic) Osteoarthritis (Chronic) Osteoarthritis of right knee (Chronic) PCOS (polycystic ovarian syndrome) (Chronic 1974) Plantar warts (Chronic) Postoperative pulmonary embolism (Resolved 2013) Retinal detachment, left (Resolved 2010) Retinal detachment, right (Resolved 2011) Rosacea (Resolved 2008) Shoulder pain (Chronic) Sleep apnea (Chronic ~2015) Surgical History Anesthesia (Resolved) History of eye surgery (Resolved 02/27/11) History of eye surgery (Resolved 05/15/12) History of knee replacement (Resolved 05/13/14) History of sinus surgery (Resolved 1987) History of surgical removal of meniscus of knee (Resolved 09/03/13) History of tonsillectomy (Resolved 1964) Status post delivery (Resolved 12/1984) Status post delivery (Resolved 06/1981) Status post endometrial ablation (Resolved 2005) Status post loop electrosurgical excision procedure (LEEP) of cervix (Resolved 01/2006) Status post surgical removal of neoplasm of skin (Resolved 1957) Family History Father Heart disease Mother Osteoporosis Stroke Celiac disease Glaucoma COPD (chronic obstructive pulmonary disease) Emphysema lung Sister Age: 60 Alcoholic Drug abuse Hepatitis C Son No problems noted. Son [id number] transgender person PCOS (polycystic ovarian syndrome) Social History Smoking Status: Never smoker Smoking Status: Never smoker Exam Narrative Exam Narrative: GEN: 64F, appears younger than stated age. AOx3 and in obvious pain EYES: Pupils are equal, round, and reactive to light and accommodation. Extraoccular muscles are intact bilaterally. There is no subconjunctival hemorrhage or exudate. CHEST: Lungs are clear to auscultation bilaterally and free of wheezes, rales, or rhonchi. Heart rate is regular rhythm, there are no murmurs, clicks, rubs, or gallops. There is no chest wall tenderness. ABD: Abdomen is soft and nontender. There is no guarding or rebound. Bowel sounds are normal in all 4 quadrants. There is no mass or organomegaly. EXT: Decreased range of motion secondary to pain. Vertical incision over right knee expected yellowish and purple bruising. Incision is clean, dry and intact. SKIN: Warm, pink, and dry. No erythema or rash other than that which is mentioned above Initial Vital Signs Initial Vital Signs: Vital Signs Temperature 98.3 F 08/20/19 03:15 Pulse Rate 106 H 08/20/19 03:15 Respiratory Rate 16 08/20/19 03:15 Blood Pressure 177/90 H 08/20/19 03:15 Pulse Oximetry 100 08/20/19 03:15 Course Orders Ordered: Discontinued Medications Hydrocodone Bitart/Acetaminophen (Vicodin 5/325 Prepack) 1 bottle MISC SEEINSTR ONE Stop: 08/20/19 05:43 Last Admin: 08/20/19 05:53 Dose: 1 bottle Documented by: SOFIE Hydromorphone HCl (Dilaudid) 1 mg IM NOW ONE Stop: 08/20/19 03:45 Last Admin: 08/20/19 04:02 Dose: 1 mg Documented by: SOFIE Hydromorphone HCl (Dilaudid) 1 mg IM NOW ONE Stop: 08/20/19 04:33 Last Admin: 08/20/19 04:35 Dose: 1 mg Documented by: PRASHANT Reevaluation(s) Reevaluation #1: Little improvement after Dilaudid 1 mg IM, 2nd round given. Patient did quite well. Time: 04:34 Vital Signs Vital signs: Vital Signs - 8 hr 08/20/19 03:15 08/20/19 05:57 Temperature 98.3 F 98.1 F Pulse Rate 106 H 93 H Respiratory Rate 16 18 Blood Pressure 177/90 H 152/77 H Pulse Oximetry 100 96 MDM - Extremity Injury (Lower) MDM Narrative Medical decision making narrative: Patient reports increasing pain but very little access to pain control. She was unable to get her prescriptions filled given the holiday. She denies any injury or overuse. Her exam is very reassuring. We discussed the utility of labs and imaging but sure the opinion they're unlikely to change the course. Patient has a known appointment later today with Orthopedics and we discussed various pain control regimens given her access to the medications including another prepack as well as the prescription written few days ago. She has been given return precautions and had her questions answered to her apparent satisfaction Discharge Plan Departure Patient Disposition: Home Clinical Impression: Post-op pain Discharge Date/Time: 08/20/19 05:57 Instructions: DI for Postoperative Pain Activity Restrictions/Additional Instructions: *You have been diagnosed with [postoperative knee pain] *What to do: *Take medications as directed: Please take 2 of the hydrocodone tablets when you get home, ideally this will care you until you can get the Dilaudid prescription filled at 9:00 a.m.. Do not take other Tylenol containing products when you are taking the hydrocodone tablets we're giving you as they contain Tylenol themselves *Follow up with your orthopedist later in the day as planned *Return to ER if you should have any new, worsening or concerning symptoms Prescriptions: No Action [AMIT2%BACLO2%GAB5%MU] 2 % VAG 5XW Qty: 1 RF: 1 ketoconazole 2 % cream 1 applictn TOP BID Qty: 60 RF: 0 estriol cream 0.2% cream See Rx Instructions .ROUTE .COMPLEX Qty: 30 RF: 11 enoxaparin 80 mg/0.8 mL syringe 80 mg SUBCUT Q12H Qty: 8 RF: 0 levocetirizine 5 mg Tablet 5 mg PO DAILY RF: 0 tramadol 50 mg tablet 50 - 100 mg PO Q6H PRN (Reason: pain) RF: 0 triamcinolone acetonide 0.1 % ointment 1 applic TOPICAL DAILY PRN (Reason: Dry Skin) RF: 0 betamethasone dipropionate 0.05 % cream 1 applic TOPICAL DAILY RF: 0 scopolamine base 1 mg over 3 days patch 3 day 1 mg topical Q3D RF: 0 atorvastatin [Lipitor] 10 mg tablet 10 mg PO BEDTIME RF: 0 metoprolol succinate [Toprol XL] 50 mg tablet extended release 24 hr 50 mg PO DAILY RF: 0 levothyroxine [Synthroid] 50 mcg tablet 50 mcg PO DAILY RF: 0 warfarin 2.5 mg Tablet 5 mg PO DAILY RF: 0 acetaminophen 325 mg Tablet 650 mg PO Q6H PRN (Reason: pain) RF: 0 hydromorphone [Dilaudid] 2 mg tablet 1 mg PO Q6H PRN (Reason: pain) Qty: 10 RF: 0 (DME) Resmed Aircurve 10 BIPAP Qty: 1 RF: 0 Referrals: Carly Kong DO [Primary Care Provider] -
[2019-08-20] MEDS: HYDROMORPHONE 1 MG INJ IM ×2 (04:02→04:35)
[2019-08-20] MEDS: HYDROCODONE/ACET 5/325 PREPACK 1 BOTTLE MISC (05:53)
[2019-08-20 05:57] VITALS: BP 152/77; PULSE 93; RESP 18; TEMP 36.7; O2SAT 96
== END 2019-08-20 05:57 | disposition home or self-care (01) ==
PROVIDERS: Emergency Provider Emergency Medicine; PCP Family Medicine
DX: G89.18 Other acute postprocedural pain (principal); M25.561 Pain in right knee
CPT/HCPCS: 96372; 99281; 99283; J1170

== ENCOUNTER 2019-08-24 11:16 | Emergency (ER) | payer OTHER, SELFPAY ==
[2019-08-24 11:27] VITALS: BP 142/76; PULSE 116; RESP 98; TEMP 36.7; O2SAT 100
--- NOTE | 2019-08-24 13:13 | ED.ABDPAIN ---
HPI - Abdominal Pain General Chief Complaint: Abdominal Pain Stated Complaint: Pain in bowels,recent surgery Time Seen by Provider: 08/24/19 13:08 Source: patient Mode of arrival: Ambulatory Limitations: no limitations History of Present Illness HPI narrative: Patient is 64-year-old female who presents with constipation. She has been on pain medication for recent knee surgery. She feels like she has stool in her rectum and that there is a large piece stuck. She has done 2 enemas today she has been taking senna on a regular basis she took milk of magnesia and prune juice. She continued to feel pressure in her rectum. She has no nausea vomiting or abdominal pain. No fevers or chills. Related Data Home Medications Medication Instructions Recorded Confirmed levocetirizine 5 mg PO DAILY 05/27/19 08/24/19 Resmed Aircurve 10 BIPAP #1 ea 06/11/19 08/24/19 atorvastatin [Lipitor] 10 mg PO BEDTIME 08/12/19 08/24/19 betamethasone dipropionate 1 applic TOPICAL DAILY 08/12/19 08/24/19 levothyroxine [Synthroid] 50 mcg PO DAILY 08/12/19 08/24/19 metoprolol succinate [Toprol XL] 50 mg PO DAILY 08/12/19 08/24/19 scopolamine base 1 mg TOPICAL Q3D 08/12/19 08/24/19 tramadol 50 - 100 mg PO Q6H PRN 08/12/19 08/24/19 triamcinolone acetonide 1 applic TOPICAL DAILY PRN 08/12/19 08/24/19 acetaminophen 650 mg PO Q6H PRN 08/18/19 08/24/19 ondansetron 4 mg PO Q8H PRN 08/24/19 08/24/19 oxycodone 5 mg PO Q6H PRN 08/24/19 08/24/19 Previous Rx's Medication Instructions Recorded [AMIT2%BACLO2%GAB5%MU] 2 % VAG 5XW #1 tube 01/22/19 estriol cream 0.2% See Rx Instructions .ROUTE 05/18/19 .COMPLEX #30 gram ketoconazole 2 % topical cream 1 applictn TOP BID #60 gram 07/27/19 enoxaparin 80 mg/0.8 mL 80 mg SUBCUT Q12H #8 ml 08/24/19 subcutaneous syringe warfarin 2.5 mg tablet 7.5 mg PO DAILY #120 tab 08/24/19 Allergies Allergy/AdvReac Type Severity Reaction Status Date / Time diazepam Allergy Severe eyes Verified 08/18/19 18:09 swelled shut, hard to breath epinephrine Allergy Severe SEIZURES Verified 08/18/19 18:09 oxycodone Allergy Severe FAINTED, Verified 08/18/19 18:09 SEVERE VOMITING, DIZZINESS, LIGHT HEADED clindamycin Allergy Mild RASH Verified 08/18/19 18:09 doxycycline Allergy Unknown RASH Verified 08/18/19 18:09 azithromycin AdvReac Unknown THROW UP Verified 08/18/19 18:09 Review of Systems Review of Systems Narrative: GENERAL: Denies chills, fatigue, malaise, fever, sweats, travel HEENT: Denies sinus pain, ear pain, sore throat, difficulty swallowing, neck pain RESPIRATORY: Denies dyspnea, cough, wheezing, hemoptysis, sputum. CARDIOVASCULAR: Denies chest pain, palpitations, orthopnea, edema GASTROINTESTINAL: See HPI : Denies dysuria, frequency, incontinence, hematuria, urinary retention, flank pain. MUSCULOSKELETAL: Denies weakness, joint pain, or bony pain SKIN: No rash, no erythema, no pruritus NEUROLOGIC: Denies weakness, dizziness, headache, numbness, change in speech, confusion PSYCHIATRIC: No concerning psychosocial issues. 12 point review of systems is negative except for those stated above and HPI Patient History Medical History Abnormal Pap smear of cervix (Chronic) Acne (Resolved 1969) Anaphylactic reaction (Resolved) DVT (deep venous thrombosis) (Resolved 2013) Eczema (Chronic) Excessive daytime sleepiness (Chronic) Fibroids (Chronic) Gastro-esophageal reflux disease with esophagitis (Chronic) Hayfever (Chronic 1966) Hepatitis B (Chronic ~1976) History of ovarian cyst (Chronic) History of torn meniscus of left knee (Resolved 2012) Hyperlipidemia (Chronic) Hypothyroidism (Chronic 2009) Infertility (Chronic) Irritable larynx syndrome (Chronic) Lichen planus (Acute) Measles (Resolved) Mumps (Resolved) Obesity (BMI 30-39.9) (Chronic) Obstructive sleep apnea of adult (Chronic) Osteoarthritis (Chronic) Osteoarthritis of right knee (Chronic) PCOS (polycystic ovarian syndrome) (Chronic 1974) Plantar warts (Chronic) Postoperative pulmonary embolism (Resolved 2013) Retinal detachment, left (Resolved 2010) Retinal detachment, right (Resolved 2011) Rosacea (Resolved 2008) Shoulder pain (Chronic) Sleep apnea (Chronic ~2015) Surgical History Anesthesia (Resolved) History of eye surgery (Resolved 02/27/11) History of eye surgery (Resolved 05/15/12) History of knee replacement (Resolved 05/13/14) History of sinus surgery (Resolved 1987) History of surgical removal of meniscus of knee (Resolved 09/03/13) History of tonsillectomy (Resolved 1964) Status post delivery (Resolved 12/1984) Status post delivery (Resolved 06/1981) Status post endometrial ablation (Resolved 2005) Status post loop electrosurgical excision procedure (LEEP) of cervix (Resolved 01/2006) Status post surgical removal of neoplasm of skin (Resolved 1957) Family History Father Heart disease Mother Osteoporosis Stroke Celiac disease Glaucoma COPD (chronic obstructive pulmonary disease) Emphysema lung Sister Age: 60 Alcoholic Drug abuse Hepatitis C Son No problems noted. Son [id number] transgender person PCOS (polycystic ovarian syndrome) Social History Smoking Status: Never smoker Smoking Status: Never smoker alcohol intake frequency: holidays/special occasions only Substance Use Type: does not use Exam Initial Vital Signs Initial Vital Signs: Vital Signs Temperature 98.0 F 08/24/19 11:27 Pulse Rate 116 H 08/24/19 11:27 Respiratory Rate 98 H 08/24/19 11:27 Blood Pressure 142/76 H 08/24/19 11:27 Pulse Oximetry 100 08/24/19 11:27 GENERAL: Well-appearing, well-nourished and in no acute distress. HEENT: Head atraumatic,EOMI, pupils reactive, face symmetric CARDIOVASCULAR: Regular rate and rhythm without murmurs, rubs or gallops. RESPIRATORY: Breath sounds equal bilaterally, no wheezes rales or rhonchi. ABDOMEN: Soft, nontender. Normoactive bowel sounds all 4 quadrants. No guarding or rebound. RECTAL: Hemoccult-positive, no hemorrhoids, nontender EXTREMITIES: Normal range of motion, no clubbing or edema. Neurovascularly intact NEUROLOGICAL: Alert and oriented x4.Normal gait and speech. Cranial nerves II through XII grossly intact. SKIN: Warm, dry, no laceration, no petechiae, no rashes or lesions. Course Orders Ordered: Discontinued Medications Mineral Oil (Mineral Oil Enema) 1 each [place] NOW ONE Stop: 08/24/19 13:26 Vital Signs Vital signs: Vital Signs - 8 hr 08/24/19 11:27 Temperature 98.0 F Pulse Rate 116 H Respiratory Rate 98 H Blood Pressure 142/76 H Pulse Oximetry 100 MDM - Abdominal Pain MDM Narrative Medical decision making narrative: Patient had enema by nursing staff and had instant relief there was some he this impaction done at that time as well. The patient is scheduled for an outpatient INR check at her PCPs office. Discussed with her bowel regimen and as long as she is on narcotic she needs to take stool softeners. Discharge Plan Departure Patient Disposition: Home Clinical Impression: Constipation Qualifiers: Constipation type: drug induced constipation Qualified Code(s): K59.03 - Drug induced constipation Discharge Date/Time: 08/24/19 15:32 Instructions: DI for Constipation Activity Restrictions/Additional Instructions: *You have been diagnosed with constipation *What to do: Continue bowel regimen and decreased pain medication *Continue to take medications as directed *Follow up with your primary care provider in 2-3 days *Return to ER if you should have in increased rectal pain or any new, worsening or concerning symptoms Prescriptions: No Action [AMIT2%BACLO2%GAB5%MU] 2 % VAG 5XW Qty: 1 RF: 1 ketoconazole 2 % cream 1 applictn TOP BID Qty: 60 RF: 0 estriol cream 0.2% cream See Rx Instructions .ROUTE .COMPLEX Qty: 30 RF: 11 warfarin 2.5 mg tablet 7.5 mg PO DAILY Qty: 120 RF: 0 enoxaparin 80 mg/0.8 mL syringe 80 mg SUBCUT Q12H Qty: 8 RF: 0 levocetirizine 5 mg Tablet 5 mg PO DAILY RF: 0 tramadol 50 mg tablet 50 - 100 mg PO Q6H PRN (Reason: pain) RF: 0 triamcinolone acetonide 0.1 % ointment 1 applic TOPICAL DAILY PRN (Reason: Dry Skin) RF: 0 betamethasone dipropionate 0.05 % cream 1 applic TOPICAL DAILY RF: 0 scopolamine base 1 mg over 3 days patch 3 day 1 mg topical Q3D RF: 0 atorvastatin [Lipitor] 10 mg tablet 10 mg PO BEDTIME RF: 0 metoprolol succinate [Toprol XL] 50 mg tablet extended release 24 hr 50 mg PO DAILY RF: 0 levothyroxine [Synthroid] 50 mcg tablet 50 mcg PO DAILY RF: 0 acetaminophen 325 mg Tablet 650 mg PO Q6H PRN (Reason: pain) RF: 0 ondansetron 4 mg Tablet,Disintegrating 4 mg PO Q8H PRN (Reason: Nausea) RF: 0 oxycodone 5 mg Tablet 5 mg PO Q6H PRN (Reason: pain) RF: 0 (DME) Resmed Aircurve 10 BIPAP Qty: 1 RF: 0 Referrals: Carly Kong DO [Primary Care Provider] -
--- NOTE | 2019-08-24 15:20 | PC.NURSE ---
Enema completed by RN. Large hard stool vacated with immediate relief.
== END 2019-08-24 15:32 | disposition home or self-care (01) ==
PROVIDERS: Emergency Provider Emergency Medicine; PCP Family Medicine
DX: K59.03 Drug induced constipation (principal)
CPT/HCPCS: 99281; 99282

== ENCOUNTER → 2019-09-23 11:44 | Outpatient (CLI) | payer OTHER, SELFPAY ==
[2019-09-23 12:54] LABS: Blood Urea Nitrogen 12 mg/dL (7-17); Calcium 9.8 mg/dL (8.4-10.2); Carbon Dioxide 27 mmol/L (22-32); Chloride 103 mmol/L (98-107); Estimated Glomerular Filt Rate > 60.0 mL/min (>60); Glucose 98 mg/dL (80-110); HEMOLYSIS < 15 (0-50); Potassium 3.6 mmol/L (3.4-5.1); Sodium 140 mmol/L (137-145)
== END ==
PROVIDERS: PCP Family Medicine; Visit Provider Family Medicine
DX: R30.0 Dysuria (principal)
CPT/HCPCS: 36415; 80048

== ENCOUNTER → 2019-10-02 11:27 | Outpatient (CLI) | payer OTHER, SELFPAY ==
[2019-10-02 12:41] LABS: Add Manual Diff / Slide Review NO; Basophils Absolute Auto 100 /uL (0-100); Basophils Percent Auto 1.1 % (0-2); Eosinophils Absolute Auto 200 /uL (0-450); Eosinophils Percent Auto 2.9 % (2-4); Hematocrit 35.4 % (36-46); Hemoglobin 11.9 g/dL (12.0-16.0); Lymphocytes Absolute Auto 1200 /uL (1100-4500); Mean Corpuscular HGB Conc 33.6 % (30-36); Mean Corpuscular Hemoglobin 30.5 PG (26-34); Mean Corpuscular Volume 90.9 fL (80-100); Monocytes Absolute Auto 500 /uL (0-900); Neutrophils Absolute Auto 4400 /uL (1500-7000); Platelet Count 344 X10^3/uL (150-400); Red Blood Cell Count 3.89 X10^6/uL (4.0-5.2); Red Cell Distribution Width 13.7 % (11.6-14.8); White Blood Cell Count 6.3 X10^3/uL (4.5-11.0)
[2019-10-05 15:50] LABS: Protein C Activity 49 % normal (70-180)
[2019-10-06 12:31] LABS: Homocysteine 8.4 umol/L (< 10.4)
== END ==
PROVIDERS: PCP Family Medicine; Referring Provider Family Medicine; Visit Provider Family Medicine
DX: I82.409 Acute embolism and thrombosis of unspecified deep veins of unspecified lower extremity (principal)
CPT/HCPCS: 36415; 81241; 83090; 85025; 85300; 85303; 85306

== ENCOUNTER 2019-11-05 13:45 | Outpatient (RCR) | payer OTHER, SELFPAY ==
--- NOTE | 2019-08-10 17:21 | PT.OPPOC ---
Current Diagnoses Unilateral primary osteoarthritis, right knee (08/12/19) Stiffness of right knee, not elsewhere classified (08/12/19) Difficulty in walking, not elsewhere classified (08/12/19) Weakness (08/12/19) Visit Care Team Role Provider Type Carly Kong DO Family Provider Physician Primary Care Provider Specialty: Family Practice Address: [address] [place] [address], [address], [address] Email: [email or web address] Martha Gordon PA-C Attending Provider Non-Staff Specialty: Medical Address: [address] [place] [address], [id number] Email: Plan Of Care PT-OP-T Assessment and Plan Start: 08/10/19 09:54 Freq: Status: Active Protocol: Document 08/10/19 10:30 MT (Rec: 08/10/19 14:03 MT [id number]) Physical Therapy Assessment Rehab Potential Rehabilitation Potential Good Evaluation Complexity Number of Personal Factors/Comorbidities 1-2 Number of Body Systems Impaired 4 or More Clinical Presentation at Evaluation Evolving Impairments Impairments Activity Tolerance,Balance, Edema,Functional Activities, Functional Mobility,Gait,Pain, ROM,Soft Tissue Mobility, Strength,Transfers Goals stairs Masking Machine Operator Goal (LTG) pt will be able to ascend/ descend stairs using reciprocal gait and use of railing on one side in order to improve pt functional mobility and independence around home LTG Duration 11/09/19 LEFS Masking Machine Operator Goal (LTG) Pt will improve LEFS score to a 60/80 in order to demonstrate improved ability and independence to carry out ADL's and functional movement LTG Duration 11/09/19 gait Short Term Goal (STG) pt will increase Tinetti score to 24/28 in order to demonstrate increased balance and gait and decreased risk category for falls STG Duration 10/11/19 Masking Machine Operator Goal (LTG) pt will be able to ambulate independently with SPC and minimal gait deviations in order to be able to return to walking her dog LTG Duration 11/09/19 ROM Short Term Goal (STG) Pt will increase R active knee extension to lacking 10 degrees in order to improve pt ability to extend knee for increased stability in gait STG Duration 09/10/19 Residential Goal (LTG) Pt will be able to achieve 120 degrees of R knee flexion in order to return to riding a bie and be able to get into a sitting kyak LTG Duration 11/09/19 strength Short Term Goal (STG) pt will be compliant and independent with HEP STG Duration 09/10/19 Residential Goal (LTG) Pt will increase R LE strength to at least 4+/5 for all motions in order to increase independence with ADL's LTG Duration 11/09/19 Assessment Summary Assessment Pt presents to PT s/p R TKA that she received on 08/06/19. She has decreased strength and is limited in flexion and extension ROM on her R LE. She also has residual limitations in her ROM in her L knee from a past L TKA. She is able to ambulate using a 2WW, but has deviations of decreased and uneven stride length and antalgic gait pattern. She is also limited in her transfers and bed mobility due to her pain and decreased motion. Pt was given exercises from her surgeon to perform at home. Reviewed pts ability and form with the exercises and told her to continue with those. Pt's Tinetti score indicates that she is at a high risk of falling. She will continue to benefit from skilled PT in order to increase her strength , balance, and ROM and decrease pain in order to return to PLOF with ADL's and functional mobility. Physical Therapy Plan Frequency and Duration Frequency of Treatment 2-3x/Week Duration of Treatment 3 months Plan of Care Start Date 08/10/19 Plan of Care End Date 11/09/19 Therapeutic Interventions Therapeutic Interventions Aquatic Therapy,Balance Training,Coordination Training ,Gait Training,Home Exercise Program,Joint Mobilizations, Lymphedema Management,Manual Therapy,Neuromuscular Re- education,Patient/Caregiver Education,Self-Care/Home Management,Soft Tissue Mobilization,Taping, Therapeutic Activities, Therapeutic Exercises Modalities Cold Pack/Ice Massage,Electric Stimulation,Hot Packs, Infrared Therapy,Ultrasound Next Visit Focus/Plan Next Note Type Treatment Note Next Visit Plan look to progress HEP, begin light manual therapy for increasing ROM Plan of Care Dates Plan of Care Start Date 08/10/19 Plan of Care End Date 11/09/19
--- NOTE | 2019-08-10 18:44 | PT.OIE ---
Current Diagnoses Unilateral primary osteoarthritis, right knee (08/10/19) Stiffness of right knee, not elsewhere classified (08/10/19) Difficulty in walking, not elsewhere classified (08/10/19) Weakness (08/10/19) Past Medical History (Last Updated 06/11/19 @ 12:06 by MARIBEL Delgado) Abnormal Pap smear of cervix (Chronic) Acne (Resolved 1969) Anaphylactic reaction (Resolved) DVT (deep venous thrombosis) (Resolved 2013) Eczema (Chronic) Excessive daytime sleepiness (Chronic) Fibroids (Chronic) Gastro-esophageal reflux disease with esophagitis (Chronic) Hayfever (Chronic 1966) Hepatitis B (Chronic ~1976) History of ovarian cyst (Chronic) History of torn meniscus of left knee (Resolved 2012) Hyperlipidemia (Chronic) Hypothyroidism (Chronic 2009) Infertility (Chronic) Irritable larynx syndrome (Chronic) Lichen planus (Acute) Measles (Resolved) Mumps (Resolved) Obesity (BMI 30-39.9) (Chronic) Obstructive sleep apnea of adult (Chronic) Osteoarthritis (Chronic) Osteoarthritis of right knee (Chronic) PCOS (polycystic ovarian syndrome) (Chronic 1974) Plantar warts (Chronic) Postoperative pulmonary embolism (Resolved 2013) Retinal detachment, left (Resolved 2010) Retinal detachment, right (Resolved 2011) Rosacea (Resolved 2008) Shoulder pain (Chronic) Sleep apnea (Chronic ~2015) Past Surgical History (Last Reviewed 07/02/18 @ 21:40 by aCrly Kong DO) Anesthesia (Resolved) History of eye surgery (Resolved 02/27/11) History of eye surgery (Resolved 05/15/12) History of knee replacement (Resolved 05/13/14) History of sinus surgery (Resolved 1987) History of surgical removal of meniscus of knee (Resolved 09/03/13) History of tonsillectomy (Resolved 1964) Status post delivery (Resolved 12/1984) Status post delivery (Resolved 06/1981) Status post endometrial ablation (Resolved 2005) Status post loop electrosurgical excision procedure (LEEP) of cervix (Resolved 01/2006) Status post surgical removal of neoplasm of skin (Resolved 1957) Visit Care Team Role Provider Type Carly Kong DO Family Provider Physician Primary Care Provider Specialty: Family Practice Address: [address] [place] [address], [facility] [address], [address] Email: [email or web address] Martha Gordon PA-C Attending Provider Non-Staff Specialty: Medical Address: [facility] [place] [address], [place], [address] Email: Physical Therapy Initial Evaluation PT-OP-A Visit Information Start: 08/10/19 09:54 Freq: Status: Active Protocol: Document 08/10/19 10:30 MT (Rec: 08/10/19 14:03 MT [id number]) Out-Patient Physical Therapy Visit Information Visit Information Visit Type Treatment Note Visit Start Time 10:30 Visit Stop Time 11:17 Total Visit Minutes 47 Visit Number 1 Number of PSYCHOLOGICAL EXAMINER Visits 0 PT-OP-B Current Condition Start: 08/10/19 09:54 Freq: Status: Active Protocol: Document 08/10/19 10:30 MT (Rec: 08/10/19 14:03 MT [id number]) Current Condition History of Current Condition Onset Date 08/06/19 History of Current Condition pt had R TKA on 08/06/19 in [place] to address oasteoarthritis. Pt currently uses 2WW for ambulation. Pt has cane that she used prior to surgery due to her knee pain and feeling like her knee was giving way. She had a L TKA 5 years ago and recovered from that well, but she reports that it still gives her issues with stairs and she has not been able to fully regain her ROM. She used to lead with her right LE when going up stairs but now she leads with her left one. She has trouble picking things up from the ground. Pt has a walk-in shower with shower seat and pt has a mlt. She has stairs in her home but does not need to use them in order to live in her home. Pt lives at home with her who is able to help her with her mobility and helping her through her exercises. Pt reports that she still struggles with moving her leg when getting into bed and requires a leg assist. Treatment Goals Patient/Caregiver Goals be able to use the stairs again, get back to riding the bicycle, be able to get into/ out of kyak, getting back to walking her dog (20 minutes) PT-OP-C Subjective Start: 08/10/19 09:54 Freq: Status: Active Protocol: Document 08/10/19 10:30 MT (Rec: 08/10/19 14:03 MT [id number]) Patient Questionnaires Lower Extremity Functional Scale LEFS Score 10/80 LEFS Impairment 80 to 99% Impaired (Score 1-16 ) OP-PT Pain Assessment Location Right knee Intensity 2 Scale Used increase to 5 with walking Description Aching,Dull Frequency Frequent Pain Aggravating Factors Activity,Exercise,Walking, Stair Climbing,Bending Pain Alleviating Factors Cold Other Pain Alleviating Factors tramidol for pain, pt has an icing machine at home that she uses PT-OP-E Functional Tests Start: 08/10/19 09:54 Freq: Status: Active Protocol: Document 08/10/19 10:30 MT (Rec: 08/10/19 14:03 MT [id number]) Functional Tests Tinetti Balance and Gait Assessment Balance Score 12 Gait Score 6 Composite Score 18/28 - high fall risk category Balance Score Impairment Rating 20 to <40% Impaired (Score 10- 12) Gait Score Impairment Rating 40 to <60% Impaired (Score 5-7 ) Composite Score Impairment Rating 20 to <40% Impaired (Score 17- 22) PT-OP-G Mobility & Gait Start: 08/10/19 09:54 Freq: Status: Active Protocol: Document 08/10/19 10:30 MT (Rec: 08/10/19 14:03 MT [id number]) OP Mobility Evaluation Bed Mobility Supine to and from Sit Pt requires ModA for supine to sit and sit to supine d/t requiring assistance for moving her R LE Transfers Sit to Stand pt typically uses 2WW for sit to stand, but was able to perform a sit to stand without use of walker during evaluation. Pt kicks R foot out when performing sit to stand and puts most of weight onto L LE OP Gait Assessment Gait Gait Assistance Required: Independent Able to Maintain Weight Bearing Status Yes During Gait Assistive Devices Assistive Device Front Wheeled Walker Orthotic/Prosthetic Devices or Brace: No Gait Deviations General Gait Pattern Antalgic,Decreased Stride Length Comments Gait Comments Pt is able to perform step through gait pattern, but is unequal and does not step through as much with her L LE enough to surpass her R foot. Pt uses 2WW and puts a lot of weigt through arms during gait. Pt does not extend B knees fully during gait. PT-OP-J Posture/Palpation/Skin Start: 08/10/19 09:54 Freq: Status: Active Protocol: Document 08/10/19 10:30 MT (Rec: 08/10/19 14:03 MT [id number]) Skin Assessment Incisional Assessment Incision Appearance/Comments Pt has B compression stockings on, as recommedned by her surgeon. Incision on R LE is covered with bandage. There is increased edema in R LE vs L LE. Pt has marked bruising around incisional area that extends beyond badange boundaries. Pt also has bruising in R UE from IV placement. PT-OP-K Range of Motion Start: 08/10/19 09:54 Freq: Status: Active Protocol: Document 08/10/19 10:30 MT (Rec: 08/10/19 14:03 MT [id number]) Knee Goniometric Range of Motion Knee Left Patient Position Supine Flexion Active (degrees) 100 Extension Active (degrees) 5 Right Patient Position Supine Flexion Active (degrees) 54 Extension Active (degrees) 18 Extension Passive (degrees) 13 Knee ROM Limitations Comments in sitting L: lacking 6 deg into ext L & lacking 35 deg into ext R PT-OP-M Strength Start: 08/10/19 09:54 Freq: Status: Active Protocol: Document 08/10/19 10:30 MT (Rec: 08/10/19 14:03 MT [id number]) Hip Strength Hip Manual Muscle Testing Left Flexion (L2) 4- Good- Abduction 4 Good External Rotation 4- Good- Internal Rotation 4 Good Right Flexion (L2) 2+ Poor+ Abduction 4 Good External Rotation 3+ Fair+ Internal Rotation 3+ Fair+ Comments pt lacking full ext on R Knee Strength Knee Manual Muscle Testing Left Flexion (S2) 4+ Good+ Extension (L3) 5 Normal Comments measured in sitting position Right Flexion (S2) 2+ Poor+ Extension (L3) 2+ Poor+ Comments measured in sidelying for gravity eliminated position Ankle/Foot Strength Ankle and Foot Manual Muscle Testing Left Dorsiflexion (L4) 4+ Good+ Plantarflexion (S1) 4 Good Right Dorsiflexion (L4) 3 Fair Plantarflexion (S1) 4+ Good+ Comments PF tested in seated B PT-OP-Q Treatments Start: 08/10/19 09:54 Freq: Status: Active Protocol: Document 08/10/19 10:30 MT (Rec: 08/10/19 14:03 MT [id number]) Therapeutic Exercises Supine Exercises hip abd Supine Exercise Name with pillow case under foot for decreased friction to slide Side right Reps/Minutes 10 hip flexion Supine Exercise Name w/ active assist Side right Comments pt only able to lift leg about 8 inches with active assist knee flexion Supine Exercise Name heel slides with towel self asist into greater range Side right knee extension Supine Exercise Name 1.quad set 2.short arch quad Side right ankle pump Side bilateral Reps/Minutes 10 each PT-OP-T Assessment and Plan Start: 08/10/19 09:54 Freq: Status: Active Protocol: Document 08/10/19 10:30 MT (Rec: 08/10/19 14:03 MT [id number]) Physical Therapy Assessment Rehab Potential Rehabilitation Potential Good Evaluation Complexity Number of Personal Factors/Comorbidities 1-2 Number of Body Systems Impaired 4 or More Clinical Presentation at Evaluation Evolving Impairments Impairments Activity Tolerance,Balance, Edema,Functional Activities, Functional Mobility,Gait,Pain, ROM,Soft Tissue Mobility, Strength,Transfers Goals stairs Wreath Maker Goal (LTG) pt will be able to ascend/ descend stairs using reciprocal gait and use of railing on one side in order to improve pt functional mobility and independence around home LTG Duration 11/09/19 LEFS Detention Goal (LTG) Pt will improve LEFS score to a 60/80 in order to demonstrate improved ability and independence to carry out ADL's and functional movement LTG Duration 11/09/19 gait Short Term Goal (STG) pt will increase Tinetti score to 24/28 in order to demonstrate increased balance and gait and decreased risk category for falls STG Duration 10/11/19 Detention Goal (LTG) pt will be able to ambulate independently with SPC and minimal gait deviations in order to be able to return to walking her dog LTG Duration 11/09/19 ROM Short Term Goal (STG) Pt will increase R active knee extension to lacking 10 degrees in order to improve pt ability to extend knee for increased stability in gait STG Duration 09/10/19 Wreath Maker Goal (LTG) Pt will be able to achieve 120 degrees of R knee flexion in order to return to riding a bie and be able to get into a sitting kyak LTG Duration 11/09/19 strength Short Term Goal (STG) pt will be compliant and independent with HEP STG Duration 09/10/19 Detention Goal (LTG) Pt will increase R LE strength to at least 4+/5 for all motions in order to increase independence with ADL's LTG Duration 11/09/19 Assessment Summary Assessment Pt presents to PT s/p R TKA that she received on 08/06/19. She has decreased strength and is limited in flexion and extension ROM on her R LE. She also has residual limitations in her ROM in her L knee from a past L TKA. She is able to ambulate using a 2WW, but has deviations of decreased and uneven stride length and antalgic gait pattern. She is also limited in her transfers and bed mobility due to her pain and decreased motion. Pt was given exercises from her surgeon to perform at home. Reviewed pts ability and form with the exercises and told her to continue with those. Pt's Tinetti score indicates that she is at a high risk of falling. She will continue to benefit from skilled PT in order to increase her strength , balance, and ROM and decrease pain in order to return to PLOF with ADL's and functional mobility. Physical Therapy Plan Frequency and Duration Frequency of Treatment 2x/Week Duration of Treatment 3 months Plan of Care Start Date 08/10/19 Plan of Care End Date 11/09/19 Therapeutic Interventions Therapeutic Interventions Aquatic Therapy,Balance Training,Coordination Training ,Gait Training,Home Exercise Program,Joint Mobilizations, Lymphedema Management,Manual Therapy,Neuromuscular Re- education,Patient/Caregiver Education,Self-Care/Home Management,Soft Tissue Mobilization,Taping, Therapeutic Activities, Therapeutic Exercises Modalities Cold Pack/Ice Massage,Electric Stimulation,Hot Packs, Infrared Therapy,Ultrasound Next Visit Focus/Plan Next Note Type Treatment Note Next Visit Plan look to progress HEP, begin light manual therapy for increasing ROM
--- NOTE | 2019-08-12 18:45 | PT.OTN ---
Current Diagnoses Unilateral primary osteoarthritis, right knee (08/12/19) Stiffness of right knee, not elsewhere classified (08/12/19) Difficulty in walking, not elsewhere classified (08/12/19) Weakness (08/12/19) Physical Therapy Treatment Note PT-OP-A Visit Information Start: 08/10/19 09:54 Freq: Status: Active Protocol: Document 08/12/19 13:00 MT (Rec: 08/12/19 18:39 MT [id number]) Out-Patient Physical Therapy Visit Information Visit Information Visit Type Treatment Note Visit Start Time 13:00 Visit Stop Time 13:45 Total Visit Minutes 45 Visit Number 2 Number of MARKETING ACCOUNT EXECUTIVE Visits 0 PT-OP-B Current Condition Start: 08/10/19 09:54 Freq: Status: Active Protocol: Document 08/10/19 10:30 MT (Rec: 08/10/19 14:03 MT [id number]) Current Condition History of Current Condition Onset Date 08/06/19 History of Current Condition pt had R TKA on 08/06/19 in [place] to address oasteoarthritis. Pt currently uses 2WW for ambulation. Pt has cane that she used prior to surgery due to her knee pain and feeling like her knee was giving way. She had a L TKA 5 years ago and recovered from that well, but she reports that it still gives her issues with stairs and she has not been able to fully regain her ROM. She used to lead with her right LE when going up stairs but now she leads with her left one. She has trouble picking things up from the ground. 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 She has stairs in her home but does not need to use them in order to live in her home. Pt lives at home with her who is able to help her with her mobility and helping her through her exercises. Pt reports that she still struggles with moving her leg when getting into bed and requires a leg assist. Treatment Goals Patient/Caregiver Goals be able to use the stairs again, get back to riding the bicycle, be able to get into/ out of kyak, getting back to walking her dog (20 minutes) PT-OP-C Subjective Start: 08/10/19 09:54 Freq: Status: Active Protocol: Document 08/12/19 13:00 MT (Rec: 08/12/19 18:39 MT [id number]) OP-PT Subjective Patient Comments Patient Comments Pt reported that she has been having some tenderness in her calf muscle and was feeling very sore yesterday. HSsdaie also had a fever yesterday that reported went up to 101.9 degrees. She has mostly been compliant with her exercises, with the exception of yesterday when she wasnt feeling well. PT-OP-E Functional Tests Start: 08/10/19 09:54 Freq: Status: Active Protocol: Document 08/10/19 10:30 MT (Rec: 08/10/19 14:03 MT [id number]) Functional Tests Tinetti Balance and Gait Assessment Balance Score 12 Gait Score 6 Composite Score 18/28 - high fall risk category Balance Score Impairment Rating 20 to <40% Impaired (Score 10- 12) Gait Score Impairment Rating 40 to <60% Impaired (Score 5-7 ) Composite Score Impairment Rating 20 to <40% Impaired (Score 17- 22) PT-OP-G Mobility & Gait Start: 08/10/19 09:54 Freq: Status: Active Protocol: Document 08/10/19 10:30 MT (Rec: 08/10/19 14:03 MT [id number]) OP Mobility Evaluation Bed Mobility Supine to and from Sit Pt requires ModA for supine to sit and sit to supine d/t requiring assistance for moving her R LE Transfers Sit to Stand pt typically uses 2WW for sit to stand, but was able to perform a sit to stand without use of walker during evaluation. Pt kicks R foot out when performing sit to stand and puts most of weight onto L LE OP Gait Assessment Gait Gait Assistance Required: Independent Able to Maintain Weight Bearing Status Yes During Gait Assistive Devices Assistive Device Front Wheeled Walker Orthotic/Prosthetic Devices or Brace: No Gait Deviations General Gait Pattern Antalgic,Decreased Stride Length Comments Gait Comments Pt is able to perform step through gait pattern, but is unequal and does not step through as much with her L LE enough to surpass her R foot. Pt uses 2WW and puts a lot of weigt through arms during gait. Pt does not extend B knees fully during gait. PT-OP-J Posture/Palpation/Skin Start: 08/10/19 09:54 Freq: Status: Active Protocol: Document 08/10/19 10:30 MT (Rec: 08/10/19 14:03 MT [id number]) Skin Assessment Incisional Assessment Incision Appearance/Comments Pt has B compression stockings on, as recommedned by her surgeon. Incision on R LE is covered with bandage. There is increased edema in R LE vs L LE. Pt has marked bruising around incisional area that extends beyond badange boundaries. Pt also has bruising in R UE from IV placement. PT-OP-K Range of Motion Start: 08/10/19 09:54 Freq: Status: Active Protocol: Document 08/10/19 10:30 MT (Rec: 08/10/19 14:03 MT [id number]) Knee Goniometric Range of Motion Knee Left Patient Position Supine Flexion Active (degrees) 100 Extension Active (degrees) 5 Right Patient Position Supine Flexion Active (degrees) 54 Extension Active (degrees) 18 Extension Passive (degrees) 13 Knee ROM Limitations Comments in sitting L: lacking 6 deg into ext L & lacking 35 deg into ext R PT-OP-M Strength Start: 08/10/19 09:54 Freq: Status: Active Protocol: Document 08/10/19 10:30 MT (Rec: 08/10/19 14:03 MT [id number]) Hip Strength Hip Manual Muscle Testing Left Flexion (L2) 4- Good- Abduction 4 Good External Rotation 4- Good- Internal Rotation 4 Good Right Flexion (L2) 2+ Poor+ Abduction 4 Good External Rotation 3+ Fair+ Internal Rotation 3+ Fair+ Comments pt lacking full ext on R Knee Strength Knee Manual Muscle Testing Left Flexion (S2) 4+ Good+ Extension (L3) 5 Normal Comments measured in sitting position Right Flexion (S2) 2+ Poor+ Extension (L3) 2+ Poor+ Comments measured in sidelying for gravity eliminated position Ankle/Foot Strength Ankle and Foot Manual Muscle Testing Left Dorsiflexion (L4) 4+ Good+ Plantarflexion (S1) 4 Good Right Dorsiflexion (L4) 3 Fair Plantarflexion (S1) 4+ Good+ Comments PF tested in seated B PT-OP-Q Treatments Start: 08/10/19 09:54 Freq: Status: Active Protocol: Document 08/12/19 13:00 MT (Rec: 08/12/19 18:39 MT [id number]) Cardio Equipment Recumbent Stepper (Sci-Fit) Duration (Minutes) 10 Resistance 0 Seat Position 10-7 Therapeutic Exercises Supine Exercises hip abd Supine Exercise Name with pillow case under foot for decreased friction to slide Side right Reps/Minutes 10 hip flexion Supine Exercise Name w/ active assist Side right Comments pt only able to lift leg about 8 inches with active assist knee flexion Supine Exercise Name heel slides with gait belt to assist into greater knee flex Side right knee extension Supine Exercise Name 1.quad set 2.short arch quad Side right ankle pump Side bilateral Reps/Minutes 10 each Standing Exercises hip strength Standing Exercise Name hip abd, flexion, ext Side right Reps/Minutes 20 each Self-Care/Home Management Treatment Education Other Education Pt and were educated to call the doctor about pt's signs and symptoms in order to rule out DVT re: patient's hx of emboli, pt's recent onset of calf pain, calf tenderness, recent fever, and recent surgery PT-OP-T Assessment and Plan Start: 08/10/19 09:54 Freq: Status: Active Protocol: Document 08/12/19 13:00 MT (Rec: 08/12/19 18:39 MT [id number]) Physical Therapy Assessment Goals stairs Fuels Sales Representative Goal (LTG) pt will be able to ascend/ descend stairs using reciprocal gait and use of railing on one side in order to improve pt functional mobility and independence around home LTG Duration 11/09/19 LEFS Residential Goal (LTG) Pt will improve LEFS score to a 60/80 in order to demonstrate improved ability and independence to carry out ADL's and functional movement LTG Duration 11/09/19 gait Short Term Goal (STG) pt will increase Tinetti score to 24/28 in order to demonstrate increased balance and gait and decreased risk category for falls STG Duration 10/11/19 Fuels Sales Representative Goal (LTG) pt will be able to ambulate independently with SPC and minimal gait deviations in order to be able to return to walking her dog LTG Duration 11/09/19 ROM Short Term Goal (STG) Pt will increase R active knee extension to lacking 10 degrees in order to improve pt ability to extend knee for increased stability in gait STG Duration 09/10/19 Residential Goal (LTG) Pt will be able to achieve 120 degrees of R knee flexion in order to return to riding a bie and be able to get into a sitting kyak LTG Duration 11/09/19 strength Short Term Goal (STG) pt will be compliant and independent with HEP STG Duration 09/10/19 Fuels Sales Representative Goal (LTG) Pt will increase R LE strength to at least 4+/5 for all motions in order to increase independence with ADL's LTG Duration 11/09/19 Assessment Summary Assessment Pt was able to tolerate stepper machine and was able to slowly achieve closer seat positioning in order to achieve greater knee flexion. Introduced hip strengthening exercises for pt to begin incorporating into her HEP. Pt was able to increase her ability to perform her HEP exercises with the SAQ and knee flexion. Pt was educated to talk to doctor about recent onset of symptoms in order to rule out DVT. Physical Therapy Plan Frequency and Duration Frequency of Treatment 2x/Week Duration of Treatment 3 months Plan of Care Start Date 08/10/19 Plan of Care End Date 11/09/19 Therapeutic Interventions Therapeutic Interventions Aquatic Therapy,Balance Training,Coordination Training ,Gait Training,Home Exercise Program,Joint Mobilizations, Lymphedema Management,Manual Therapy,Neuromuscular Re- education,Patient/Caregiver Education,Self-Care/Home Management,Soft Tissue Mobilization,Taping, Therapeutic Activities, Therapeutic Exercises Modalities Cold Pack/Ice Massage,Electric Stimulation,Hot Packs, Infrared Therapy,Ultrasound Next Visit Focus/Plan Next Note Type Treatment Note Next Visit Plan look to progress HEP, begin light manual therapy for increasing ROM
--- NOTE | 2019-08-14 13:10 | PT-OP ANOTE ---
Pt arrived for scheduled appt today. Pt reported called orthopedist after last appt regarding R calf pain as physical therapist suggested and was referred for ultrasound, resulted positive for DVT. Pt is taking prescription to assist resolve DVT and has a follow up appt scheduled for 08/21/19 to reassess by orthopedist. [employer] cancelled appt today's secondary to activity contraindicated during positive DVT, discussed with a PT (Edwar) with confirmation to hold today's appt until follow up appt with physician for safe to continue PT. Pt verbalized understanding of [employer] and PT decision of hold PT today.
--- NOTE | 2019-08-17 10:25 | PT-OP ANOTE ---
Pt's MD was called re: pt participating in PT during time she is being treated for DVT and message left with nurse as PA was not in the clinic until 1:30 today. Pt's appt was cancelled d/t this and pt called. Pt notes she is getting regular blood checks and will call as soon as she is cleared to resume PT. Pt's next appt is scheduled for Saturday and pt has MD appt and is informed to call re: decision.
--- NOTE | 2019-08-21 14:04 | PT-OP ANOTE ---
Pt did not call or show for today's appt. Last admin note stated patient had a follow up appt with yesterday regarding DVT and if cleared to resume PT. CEO NA left a message next appt is on Saturday08/24/19 at 1030, call us today if can to provide us feedback on Dr's recommendations.
--- NOTE | 2019-08-27 16:49 | PT.OTN ---
Current Diagnoses Unilateral primary osteoarthritis, right knee (08/27/19) Stiffness of right knee, not elsewhere classified (08/27/19) Difficulty in walking, not elsewhere classified (08/27/19) Weakness (08/27/19) Physical Therapy Treatment Note PT-OP-A Visit Information Start: 08/10/19 09:54 Freq: Status: Active Protocol: Document 08/27/19 12:59 [facility] (Rec: 08/27/19 16:48 [facility] [id number]) Out-Patient Physical Therapy Visit Information Visit Information Visit Type Treatment Note Visit Start Time 13:00 Visit Stop Time 13:40 Total Visit Minutes 40 Visit Number 3 PT-OP-B Current Condition Start: 08/10/19 09:54 Freq: Status: Active Protocol: Document 08/10/19 10:30 MT (Rec: 08/10/19 14:03 MT [id number]) Current Condition History of Current Condition Onset Date 08/06/19 History of Current Condition pt had R TKA on 08/06/19 in [place] to address oasteoarthritis. Pt currently uses 2WW for ambulation. Pt has cane that she used prior to surgery due to her knee pain and feeling like her knee was giving way. She had a L TKA 5 years ago and recovered from that well, but she reports that it still gives her issues with stairs and she has not been able to fully regain her ROM. She used to lead with her right LE when going up stairs but now she leads with her left one. She has trouble picking things up from the ground. Pt has a walk-in shower with shower seat and pt has a switch coupler. She has stairs in her home but does not need to use them in order to live in her home. Pt lives at home with her who is able to help her with her mobility and helping her through her exercises. Pt reports that she still struggles with moving her leg when getting into bed and requires a leg assist. Treatment Goals Patient/Caregiver Goals be able to use the stairs again, get back to riding the bicycle, be able to get into/ out of kyak, getting back to walking her dog (20 minutes) PT-OP-C Subjective Start: 08/10/19 09:54 Freq: Status: Active Protocol: Document 08/27/19 12:59 [facility] (Rec: 08/27/19 16:48 [facility] [id number]) OP-PT Subjective Patient Comments Patient Comments Pt reports she was diagnosised with DVT and MD cleared her to do activity. Her INR is now therapeutic as of just now. Pt reports she is dec oxy and inc tylenol. PT-OP-E Functional Tests Start: 08/10/19 09:54 Freq: Status: Active Protocol: Document 08/10/19 10:30 MT (Rec: 08/10/19 14:03 MT [id number]) Functional Tests Tinetti Balance and Gait Assessment Balance Score 12 Gait Score 6 Composite Score 18/28 - high fall risk category Balance Score Impairment Rating 20 to <40% Impaired (Score 10- 12) Gait Score Impairment Rating 40 to <60% Impaired (Score 5-7 ) Composite Score Impairment Rating 20 to <40% Impaired (Score 17- 22) PT-OP-G Mobility & Gait Start: 08/10/19 09:54 Freq: Status: Active Protocol: Document 08/10/19 10:30 MT (Rec: 08/10/19 14:03 MT [id number]) OP Mobility Evaluation Bed Mobility Supine to and from Sit Pt requires ModA for supine to sit and sit to supine d/t requiring assistance for moving her R LE Transfers Sit to Stand pt typically uses 2WW for sit to stand, but was able to perform a sit to stand without use of walker during evaluation. Pt kicks R foot out when performing sit to stand and puts most of weight onto L LE OP Gait Assessment Gait Gait Assistance Required: Independent Able to Maintain Weight Bearing Status Yes During Gait Assistive Devices Assistive Device Front Wheeled Walker Orthotic/Prosthetic Devices or Brace: No Gait Deviations General Gait Pattern Antalgic,Decreased Stride Length Comments Gait Comments Pt is able to perform step through gait pattern, but is unequal and does not step through as much with her L LE enough to surpass her R foot. Pt uses 2WW and puts a lot of weigt through arms during gait. Pt does not extend B knees fully during gait. PT-OP-J Posture/Palpation/Skin Start: 08/10/19 09:54 Freq: Status: Active Protocol: Document 08/10/19 10:30 MT (Rec: 08/10/19 14:03 MT [id number]) Skin Assessment Incisional Assessment Incision Appearance/Comments Pt has B compression stockings on, as recommedned by her surgeon. Incision on R LE is covered with bandage. There is increased edema in R LE vs L LE. Pt has marked bruising around incisional area that extends beyond badange boundaries. Pt also has bruising in R UE from IV placement. PT-OP-K Range of Motion Start: 08/10/19 09:54 Freq: Status: Active Protocol: Document 08/10/19 10:30 MT (Rec: 08/10/19 14:03 MT [id number]) Knee Goniometric Range of Motion Knee Left Patient Position Supine Flexion Active (degrees) 100 Extension Active (degrees) 5 Right Patient Position Supine Flexion Active (degrees) 54 Extension Active (degrees) 18 Extension Passive (degrees) 13 Knee ROM Limitations Comments in sitting L: lacking 6 deg into ext L & lacking 35 deg into ext R PT-OP-M Strength Start: 08/10/19 09:54 Freq: Status: Active Protocol: Document 08/10/19 10:30 MT (Rec: 08/10/19 14:03 MT [id number]) Hip Strength Hip Manual Muscle Testing Left Flexion (L2) 4- Good- Abduction 4 Good External Rotation 4- Good- Internal Rotation 4 Good Right Flexion (L2) 2+ Poor+ Abduction 4 Good External Rotation 3+ Fair+ Internal Rotation 3+ Fair+ Comments pt lacking full ext on R Knee Strength Knee Manual Muscle Testing Left Flexion (S2) 4+ Good+ Extension (L3) 5 Normal Comments measured in sitting position Right Flexion (S2) 2+ Poor+ Extension (L3) 2+ Poor+ Comments measured in sidelying for gravity eliminated position Ankle/Foot Strength Ankle and Foot Manual Muscle Testing Left Dorsiflexion (L4) 4+ Good+ Plantarflexion (S1) 4 Good Right Dorsiflexion (L4) 3 Fair Plantarflexion (S1) 4+ Good+ Comments PF tested in seated B PT-OP-Q Treatments Start: 08/10/19 09:54 Freq: Status: Active Protocol: Document 08/27/19 12:59 LR (Rec: 08/27/19 16:48 [facility] [id number]) Cardio Equipment Recumbent Stepper (Sci-Fit) Duration (Minutes) 8 Resistance 1 Seat Position 8 Gym Equipment Therapeutic Ball knee flex Exercise Details B Ball Size/Color 55cm Body Position Supine Reps/Duration 10 Therapeutic Exercises Supine Exercises knee flex Supine Exercise Name on tball Side bilateral Reps/Minutes 20 Comments PT assist hip abd Side right Reps/Minutes 10 hip flexion Supine Exercise Name w/ active assist Side right Reps/Minutes 10 Comments pt only able to lift leg about 8 inches with active assist knee flexion Supine Exercise Name heel slides with gait belt to assist into greater knee flex Side right Reps/Minutes 5sec x10 knee extension Supine Exercise Name 1.quad set 2.short arch quad Side right Reps/Minutes 10 Comments 3. passive ext 1 min hold Sitting Exercises LAQ Side right Reps/Minutes 10 knee flex Side right Reps/Minutes 10 sec x3 Manual Therapy Treatment Manual Techniques stretching Type HS stretching & flex & ext stretching manually PT-OP-T Assessment and Plan Start: 08/10/19 09:54 Freq: Status: Active Protocol: Document 08/27/19 12:59 [facility] (Rec: 08/27/19 16:48 [facility] [id number]) Physical Therapy Assessment Goals stairs [employer] Route [employer] Goal (LTG) pt will be able to ascend/ descend stairs using reciprocal gait and use of railing on one side in order to improve pt functional mobility and independence around home LTG Duration 11/09/19 LEFS Half-Way Goal (LTG) Pt will improve LEFS score to a 60/80 in order to demonstrate improved ability and independence to carry out ADL's and functional movement LTG Duration 11/09/19 gait Short Term Goal (STG) pt will increase Tinetti score to 24/28 in order to demonstrate increased balance and gait and decreased risk category for falls STG Duration 10/11/19 Half-Way Goal (LTG) pt will be able to ambulate independently with SPC and minimal gait deviations in order to be able to return to walking her dog LTG Duration 11/09/19 ROM Short Term Goal (STG) Pt will increase R active knee extension to lacking 10 degrees in order to improve pt ability to extend knee for increased stability in gait STG Duration 09/10/19 Half-Way Goal (LTG) Pt will be able to achieve 120 degrees of R knee flexion in order to return to riding a bie and be able to get into a sitting kyak LTG Duration 11/09/19 strength Short Term Goal (STG) pt will be compliant and independent with HEP STG Duration 09/10/19 [employer] Route Driver Goal (LTG) Pt will increase R LE strength to at least 4+/5 for all motions in order to increase independence with ADL's LTG Duration 11/09/19 Assessment Summary Assessment Pt had very limited flex ROM today and was not measureed but had no more than about 35 deg flex d/t pain. Reviewed exercises with min cueing and encouraged pt to perfrom 3x daily along with small bouts of walking. Physical Therapy Plan Frequency and Duration Frequency of Treatment 2x/Week Duration of Treatment 3 months Plan of Care Start Date 08/10/19 Plan of Care End Date 11/09/19 Therapeutic Interventions Therapeutic Interventions Aquatic Therapy,Balance Training,Coordination Training ,Gait Training,Home Exercise Program,Joint Mobilizations, Lymphedema Management,Manual Therapy,Neuromuscular Re- education,Patient/Caregiver Education,Self-Care/Home Management,Soft Tissue Mobilization,Taping, Therapeutic Activities, Therapeutic Exercises Modalities Cold Pack/Ice Massage,Electric Stimulation,Hot Packs, Infrared Therapy,Ultrasound Next Visit Focus/Plan Next Note Type Treatment Note Next Visit Plan look to progress HEP, begin light manual therapy for increasing ROM but avoid calf and popliteal fossa for manual treatment
--- NOTE | 2019-08-31 13:00 | PT.OTN ---
Current Diagnoses Unilateral primary osteoarthritis, right knee (08/31/19) Stiffness of right knee, not elsewhere classified (08/31/19) Difficulty in walking, not elsewhere classified (08/31/19) Weakness (08/31/19) Physical Therapy Treatment Note PT-OP-A Visit Information Start: 08/10/19 09:54 Freq: Status: Active Protocol: Document 08/31/19 10:41 [facility] (Rec: 08/31/19 13:00 [facility] [id number]) Out-Patient Physical Therapy Visit Information Visit Information Visit Type Treatment Note Visit Start Time 10:32 Visit Stop Time 11:12 Total Visit Minutes 40 Visit Number 4 PT-OP-B Current Condition Start: 08/10/19 09:54 Freq: Status: Active Protocol: Document 08/10/19 10:30 MT (Rec: 08/10/19 14:03 MT [id number]) Current Condition History of Current Condition Onset Date 08/06/19 History of Current Condition pt had R TKA on 08/06/19 in [place] to address oasteoarthritis. Pt currently uses 2WW for ambulation. Pt has cane that she used prior to surgery due to her knee pain and feeling like her knee was giving way. She had a L TKA 5 years ago and recovered from that well, but she reports that it still gives her issues with stairs and she has not been able to fully regain her ROM. She used to lead with her right LE when going up stairs but now she leads with her left one. She has trouble picking things up from the ground. Pt has a walk-in shower with shower seat and pt has a [employer] chair. She has stairs in her home but does not need to use them in order to live in her home. Pt lives at home with her who is able to help her with her mobility and helping her through her exercises. Pt reports that she still struggles with moving her leg when getting into bed and requires a leg assist. Treatment Goals Patient/Caregiver Goals be able to use the stairs again, get back to riding the bicycle, be able to get into/ out of kyak, getting back to walking her dog (20 minutes) PT-OP-C Subjective Start: 08/10/19 09:54 Freq: Status: Active Protocol: Document 08/31/19 10:41 [facility] (Rec: 08/31/19 13:00 [facility] [id number]) OP-PT Subjective Patient Comments Patient Comments Pt reports she has been doing exercises 2.5x/day. Notes she is having diahrea issue now after doing coctail for constipation recommended by PT-OP-E Functional Tests Start: 08/10/19 09:54 Freq: Status: Active Protocol: Document 08/10/19 10:30 MT (Rec: 08/10/19 14:03 MT [id number]) Functional Tests Tinetti Balance and Gait Assessment Balance Score 12 Gait Score 6 Composite Score 18/28 - high fall risk category Balance Score Impairment Rating 20 to <40% Impaired (Score 10- 12) Gait Score Impairment Rating 40 to <60% Impaired (Score 5-7 ) Composite Score Impairment Rating 20 to <40% Impaired (Score 17- 22) PT-OP-G Mobility & Gait Start: 08/10/19 09:54 Freq: Status: Active Protocol: Document 08/10/19 10:30 MT (Rec: 08/10/19 14:03 MT [id number]) OP Mobility Evaluation Bed Mobility Supine to and from Sit Pt requires ModA for supine to sit and sit to supine d/t requiring assistance for moving her R LE Transfers Sit to Stand pt typically uses 2WW for sit to stand, but was able to perform a sit to stand without use of walker during evaluation. Pt kicks R foot out when performing sit to stand and puts most of weight onto L LE OP Gait Assessment Gait Gait Assistance Required: Independent Able to Maintain Weight Bearing Status Yes During Gait Assistive Devices Assistive Device Front Wheeled Walker Orthotic/Prosthetic Devices or Brace: No Gait Deviations General Gait Pattern Antalgic,Decreased Stride Length Comments Gait Comments Pt is able to perform step through gait pattern, but is unequal and does not step through as much with her L LE enough to surpass her R foot. Pt uses 2WW and puts a lot of weigt through arms during gait. Pt does not extend B knees fully during gait. PT-OP-J Posture/Palpation/Skin Start: 08/10/19 09:54 Freq: Status: Active Protocol: Document 08/10/19 10:30 MT (Rec: 08/10/19 14:03 MT [id number]) Skin Assessment Incisional Assessment Incision Appearance/Comments Pt has B compression stockings on, as recommedned by her surgeon. Incision on R LE is covered with bandage. There is increased edema in R LE vs L LE. Pt has marked bruising around incisional area that extends beyond badange boundaries. Pt also has bruising in R UE from IV placement. PT-OP-K Range of Motion Start: 08/10/19 09:54 Freq: Status: Active Protocol: Document 08/10/19 10:30 MT (Rec: 08/10/19 14:03 MT [id number]) Knee Goniometric Range of Motion Knee Left Patient Position Supine Flexion Active (degrees) 100 Extension Active (degrees) 5 Right Patient Position Supine Flexion Active (degrees) 54 Extension Active (degrees) 18 Extension Passive (degrees) 13 Knee ROM Limitations Comments in sitting L: lacking 6 deg into ext L & lacking 35 deg into ext R PT-OP-M Strength Start: 08/10/19 09:54 Freq: Status: Active Protocol: Document 08/10/19 10:30 MT (Rec: 08/10/19 14:03 MT [id number]) Hip Strength Hip Manual Muscle Testing Left Flexion (L2) 4- Good- Abduction 4 Good External Rotation 4- Good- Internal Rotation 4 Good Right Flexion (L2) 2+ Poor+ Abduction 4 Good External Rotation 3+ Fair+ Internal Rotation 3+ Fair+ Comments pt lacking full ext on R Knee Strength Knee Manual Muscle Testing Left Flexion (S2) 4+ Good+ Extension (L3) 5 Normal Comments measured in sitting position Right Flexion (S2) 2+ Poor+ Extension (L3) 2+ Poor+ Comments measured in sidelying for gravity eliminated position Ankle/Foot Strength Ankle and Foot Manual Muscle Testing Left Dorsiflexion (L4) 4+ Good+ Plantarflexion (S1) 4 Good Right Dorsiflexion (L4) 3 Fair Plantarflexion (S1) 4+ Good+ Comments PF tested in seated B PT-OP-Q Treatments Start: 08/10/19 09:54 Freq: Status: Active Protocol: Document 08/31/19 10:41 [facility] (Rec: 08/31/19 13:00 [facility] [id number]) Cardio Equipment Recumbent Elliptical (Biodex) Duration (Minutes) 8 Resistance 1 Seat Position 5 Gym Equipment Shuttle Recovery Bilateral Squats Details for range Resistance 50# Shuttle Recovery Platform Stable Reps/Time 30 Therapeutic Ball knee flex Exercise Details B Ball Size/Color 55cm Body Position Supine Reps/Duration 10 Therapeutic Exercises Supine Exercises knee flex Supine Exercise Name wall slide along PT arm Side right Reps/Minutes 10 Comments 2. gravity hang with PT holding thigh Standing Exercises knee flex Side right Equipment Used at walker Reps/Minutes 15 Gait Training Gait Activity gait Description walking with cane & FWW with focus on knee flex & push off Manual Therapy Treatment Joint Mobilizations PF Joint R Direction sup, inf, med Manual Techniques stretching Type HS stretching & flex & ext stretching manually PT-OP-T Assessment and Plan Start: 08/10/19 09:54 Freq: Status: Active Protocol: Document 08/31/19 10:41 [facility] (Rec: 08/31/19 13:00 [facility] [id number]) Physical Therapy Assessment Goals stairs [facility] Goal (LTG) pt will be able to ascend/ descend stairs using reciprocal gait and use of railing on one side in order to improve pt functional mobility and independence around home LTG Duration 11/09/19 LEFS Construction Project Manager Goal (LTG) Pt will improve LEFS score to a 60/80 in order to demonstrate improved ability and independence to carry out ADL's and functional movement LTG Duration 11/09/19 gait Short Term Goal (STG) pt will increase Tinetti score to 24/28 in order to demonstrate increased balance and gait and decreased risk category for falls STG Duration 10/11/19 Construction Project Manager Goal (LTG) pt will be able to ambulate independently with SPC and minimal gait deviations in order to be able to return to walking her dog LTG Duration 11/09/19 ROM Short Term Goal (STG) Pt will increase R active knee extension to lacking 10 degrees in order to improve pt ability to extend knee for increased stability in gait STG Duration 09/10/19 [facility] Goal (LTG) Pt will be able to achieve 120 degrees of R knee flexion in order to return to riding a bie and be able to get into a sitting kyak LTG Duration 11/09/19 strength Short Term Goal (STG) pt will be compliant and independent with HEP STG Duration 09/10/19 [facility] Goal (LTG) Pt will increase R LE strength to at least 4+/5 for all motions in order to increase independence with ADL's LTG Duration 11/09/19 Assessment Summary Assessment Pt had ROM of 10-45 degrees ROM today. She cont to be limited in flex even with mult activity to encourage flex. She has dec patellar mobility at this time which may be contributing Physical Therapy Plan Frequency and Duration Frequency of Treatment 2x/Week Duration of Treatment 3 months Plan of Care Start Date 08/10/19 Plan of Care End Date 11/09/19 Therapeutic Interventions Therapeutic Interventions Aquatic Therapy,Balance Training,Coordination Training ,Gait Training,Home Exercise Program,Joint Mobilizations, Lymphedema Management,Manual Therapy,Neuromuscular Re- education,Patient/Caregiver Education,Self-Care/Home Management,Soft Tissue Mobilization,Taping, Therapeutic Activities, Therapeutic Exercises Modalities Cold Pack/Ice Massage,Electric Stimulation,Hot Packs, Infrared Therapy,Ultrasound Next Visit Focus/Plan Next Note Type Treatment Note Next Visit Plan look to progress HEP, begin light manual therapy for increasing ROM but avoid calf and popliteal fossa for manual treatment
--- NOTE | 2019-09-03 18:10 | PT.OTN ---
Current Diagnoses Unilateral primary osteoarthritis, right knee (09/03/19) Stiffness of right knee, not elsewhere classified (09/03/19) Difficulty in walking, not elsewhere classified (09/03/19) Weakness (09/03/19) Physical Therapy Treatment Note PT-OP-A Visit Information Start: 08/10/19 09:54 Freq: Status: Active Protocol: Document 09/03/19 13:04 [facility] (Rec: 09/03/19 18:10 [facility] [id number]) Out-Patient Physical Therapy Visit Information Visit Information Visit Type Treatment Note Visit Start Time 13:00 Visit Stop Time 13:45 Total Visit Minutes 45 Visit Number 5 PT-OP-B Current Condition Start: 08/10/19 09:54 Freq: Status: Active Protocol: Document 08/10/19 10:30 MT (Rec: 08/10/19 14:03 MT [id number]) Current Condition History of Current Condition Onset Date 08/06/19 History of Current Condition pt had R TKA on 08/06/19 in [place] to address oasteoarthritis. Pt currently uses 2WW for ambulation. Pt has cane that she used prior to surgery due to her knee pain and feeling like her knee was giving way. She had a L TKA 5 years ago and recovered from that well, but she reports that it still gives her issues with stairs and she has not been able to fully regain her ROM. She used to lead with her right LE when going up stairs but now she leads with her left one. She has trouble picking things up from the ground. 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 She has stairs in her home but does not need to use them in order to live in her home. Pt lives at home with her who is able to help her with her mobility and helping her through her exercises. Pt reports that she still struggles with moving her leg when getting into bed and requires a leg assist. Treatment Goals Patient/Caregiver Goals be able to use the stairs again, get back to riding the bicycle, be able to get into/ out of kyak, getting back to walking her dog (20 minutes) PT-OP-C Subjective Start: 08/10/19 09:54 Freq: Status: Active Protocol: Document 09/03/19 13:04 [facility] (Rec: 09/03/19 18:10 [facility] [id number]) OP-PT Subjective Patient Comments Patient Comments Pt reports she has been nauseaus and still cold but temperature was normal. PT-OP-E Functional Tests Start: 08/10/19 09:54 Freq: Status: Active Protocol: Document 08/10/19 10:30 MT (Rec: 08/10/19 14:03 MT [id number]) Functional Tests Tinetti Balance and Gait Assessment Balance Score 12 Gait Score 6 Composite Score 18/28 - high fall risk category Balance Score Impairment Rating 20 to <40% Impaired (Score 10- 12) Gait Score Impairment Rating 40 to <60% Impaired (Score 5-7 ) Composite Score Impairment Rating 20 to <40% Impaired (Score 17- 22) PT-OP-G Mobility & Gait Start: 08/10/19 09:54 Freq: Status: Active Protocol: Document 08/10/19 10:30 MT (Rec: 08/10/19 14:03 MT [id number]) OP Mobility Evaluation Bed Mobility Supine to and from Sit Pt requires ModA for supine to sit and sit to supine d/t requiring assistance for moving her R LE Transfers Sit to Stand pt typically uses 2WW for sit to stand, but was able to perform a sit to stand without use of walker during evaluation. Pt kicks R foot out when performing sit to stand and puts most of weight onto L LE OP Gait Assessment Gait Gait Assistance Required: Independent Able to Maintain Weight Bearing Status Yes During Gait Assistive Devices Assistive Device Front Wheeled Walker Orthotic/Prosthetic Devices or Brace: No Gait Deviations General Gait Pattern Antalgic,Decreased Stride Length Comments Gait Comments Pt is able to perform step through gait pattern, but is unequal and does not step through as much with her L LE enough to surpass her R foot. Pt uses 2WW and puts a lot of weigt through arms during gait. Pt does not extend B knees fully during gait. PT-OP-J Posture/Palpation/Skin Start: 08/10/19 09:54 Freq: Status: Active Protocol: Document 08/10/19 10:30 MT (Rec: 08/10/19 14:03 MT [id number]) Skin Assessment Incisional Assessment Incision Appearance/Comments Pt has B compression stockings on, as recommedned by her surgeon. Incision on R LE is covered with bandage. There is increased edema in R LE vs L LE. Pt has marked bruising around incisional area that extends beyond badange boundaries. Pt also has bruising in R UE from IV placement. PT-OP-K Range of Motion Start: 08/10/19 09:54 Freq: Status: Active Protocol: Document 08/10/19 10:30 MT (Rec: 08/10/19 14:03 MT [id number]) Knee Goniometric Range of Motion Knee Left Patient Position Supine Flexion Active (degrees) 100 Extension Active (degrees) 5 Right Patient Position Supine Flexion Active (degrees) 54 Extension Active (degrees) 18 Extension Passive (degrees) 13 Knee ROM Limitations Comments in sitting L: lacking 6 deg into ext L & lacking 35 deg into ext R PT-OP-M Strength Start: 08/10/19 09:54 Freq: Status: Active Protocol: Document 08/10/19 10:30 MT (Rec: 08/10/19 14:03 MT [id number]) Hip Strength Hip Manual Muscle Testing Left Flexion (L2) 4- Good- Abduction 4 Good External Rotation 4- Good- Internal Rotation 4 Good Right Flexion (L2) 2+ Poor+ Abduction 4 Good External Rotation 3+ Fair+ Internal Rotation 3+ Fair+ Comments pt lacking full ext on R Knee Strength Knee Manual Muscle Testing Left Flexion (S2) 4+ Good+ Extension (L3) 5 Normal Comments measured in sitting position Right Flexion (S2) 2+ Poor+ Extension (L3) 2+ Poor+ Comments measured in sidelying for gravity eliminated position Ankle/Foot Strength Ankle and Foot Manual Muscle Testing Left Dorsiflexion (L4) 4+ Good+ Plantarflexion (S1) 4 Good Right Dorsiflexion (L4) 3 Fair Plantarflexion (S1) 4+ Good+ Comments PF tested in seated B PT-OP-Q Treatments Start: 08/10/19 09:54 Freq: Status: Active Protocol: Document 09/03/19 13:04 LR (Rec: 09/03/19 18:10 [facility] [id number]) Cardio Equipment Recumbent Elliptical (Biodex) Duration (Minutes) 8 Resistance 1 Seat Position 5 Gym Equipment Shuttle Recovery Bilateral Squats Details for range Resistance 50# Shuttle Recovery Platform Stable Reps/Time 30 Therapeutic Exercises Sitting Exercises knee flex Sitting Exercise Name isometrics Side right Reps/Minutes 5 sec hold against PT x10 Comments 2. seated flex hand w/pt wt shift to R to keep R hip down Manual Therapy Treatment Joint Mobilizations PF Joint R Direction sup, inf, med Reps/Duration w/knee over bolster Manual Techniques stretching Type flex stretching w/c/r over bolster PT-OP-T Assessment and Plan Start: 08/10/19 09:54 Freq: Status: Active Protocol: Document 09/03/19 13:04 [facility] (Rec: 09/03/19 18:10 [facility] [id number]) Physical Therapy Assessment Goals stairs Analyzer Sales Goal (LTG) pt will be able to ascend/ descend stairs using reciprocal gait and use of railing on one side in order to improve pt functional mobility and independence around home LTG Duration 11/09/19 LEFS Analyzer Sales Goal (LTG) Pt will improve LEFS score to a 60/80 in order to demonstrate improved ability and independence to carry out ADL's and functional movement LTG Duration 11/09/19 gait Short Term Goal (STG) pt will increase Tinetti score to 24/28 in order to demonstrate increased balance and gait and decreased risk category for falls STG Duration 10/11/19 Prison Goal (LTG) pt will be able to ambulate independently with SPC and minimal gait deviations in order to be able to return to walking her dog LTG Duration 11/09/19 ROM Short Term Goal (STG) Pt will increase R active knee extension to lacking 10 degrees in order to improve pt ability to extend knee for increased stability in gait STG Duration 09/10/19 Prison Goal (LTG) Pt will be able to achieve 120 degrees of R knee flexion in order to return to riding a bie and be able to get into a sitting kyak LTG Duration 11/09/19 strength Short Term Goal (STG) pt will be compliant and independent with HEP STG Duration 09/10/19 Prison Goal (LTG) Pt will increase R LE strength to at least 4+/5 for all motions in order to increase independence with ADL's LTG Duration 11/09/19 Assessment Summary Assessment 10-48 degrees before manual and inc to 52 deg actively after manual. She cont to be limited in her ability to flex and was encouraged ot focus on flex exercises at home. Physical Therapy Plan Frequency and Duration Frequency of Treatment 2x/Week Duration of Treatment 3 months Plan of Care Start Date 08/10/19 Plan of Care End Date 11/09/19 Therapeutic Interventions Therapeutic Interventions Aquatic Therapy,Balance Training,Coordination Training ,Gait Training,Home Exercise Program,Joint Mobilizations, Lymphedema Management,Manual Therapy,Neuromuscular Re- education,Patient/Caregiver Education,Self-Care/Home Management,Soft Tissue Mobilization,Taping, Therapeutic Activities, Therapeutic Exercises Modalities Cold Pack/Ice Massage,Electric Stimulation,Hot Packs, Infrared Therapy,Ultrasound Next Visit Focus/Plan Next Note Type Treatment Note Next Visit Plan look to progress HEP, begin light manual therapy for increasing ROM but avoid calf and popliteal fossa for manual treatment
--- NOTE | 2019-09-07 11:47 | PT.OTN ---
Current Diagnoses Unilateral primary osteoarthritis, right knee (09/07/19) Stiffness of right knee, not elsewhere classified (09/07/19) Difficulty in walking, not elsewhere classified (09/07/19) Weakness (09/07/19) Physical Therapy Treatment Note PT-OP-A Visit Information Start: 08/10/19 09:54 Freq: Status: Active Protocol: Document 09/07/19 10:40 [facility] (Rec: 09/07/19 11:47 [facility] [id number]) Out-Patient Physical Therapy Visit Information Visit Information Visit Type Treatment Note Visit Start Time 10:35 Visit Stop Time 11:15 Total Visit Minutes 40 Visit Number 6 Number of REAL ESTATE ASSESSOR Visits 0 PT-OP-B Current Condition Start: 08/10/19 09:54 Freq: Status: Active Protocol: Document 08/10/19 10:30 MT (Rec: 08/10/19 14:03 MT [id number]) Current Condition History of Current Condition Onset Date 08/06/19 History of Current Condition pt had R TKA on 08/06/19 in [place] to address oasteoarthritis. Pt currently uses 2WW for ambulation. Pt has cane that she used prior to surgery due to her knee pain and feeling like her knee was giving way. She had a L TKA 5 years ago and recovered from that well, but she reports that it still gives her issues with stairs and she has not been able to fully regain her ROM. She used to lead with her right LE when going up stairs but now she leads with her left one. She has trouble picking things up from the ground. Pt has a walk-in shower with shower seat and pt has a tube backer. She has stairs in her home but does not need to use them in order to live in her home. Pt lives at home with her who is able to help her with her mobility and helping her through her exercises. Pt reports that she still struggles with moving her leg when getting into bed and requires a leg assist. Treatment Goals Patient/Caregiver Goals be able to use the stairs again, get back to riding the bicycle, be able to get into/ out of kyak, getting back to walking her dog (20 minutes) PT-OP-C Subjective Start: 08/10/19 09:54 Freq: Status: Active Protocol: Document 09/07/19 10:40 [facility] (Rec: 09/07/19 11:47 [facility] [id number]) OP-PT Subjective Patient Comments Patient Comments Pt reports she has been working hard at her bending. PT-OP-E Functional Tests Start: 08/10/19 09:54 Freq: Status: Active Protocol: Document 08/10/19 10:30 MT (Rec: 08/10/19 14:03 MT [id number]) Functional Tests Tinetti Balance and Gait Assessment Balance Score 12 Gait Score 6 Composite Score 18/28 - high fall risk category Balance Score Impairment Rating 20 to <40% Impaired (Score 10- 12) Gait Score Impairment Rating 40 to <60% Impaired (Score 5-7 ) Composite Score Impairment Rating 20 to <40% Impaired (Score 17- 22) PT-OP-G Mobility & Gait Start: 08/10/19 09:54 Freq: Status: Active Protocol: Document 08/10/19 10:30 MT (Rec: 08/10/19 14:03 MT [id number]) OP Mobility Evaluation Bed Mobility Supine to and from Sit Pt requires ModA for supine to sit and sit to supine d/t requiring assistance for moving her R LE Transfers Sit to Stand pt typically uses 2WW for sit to stand, but was able to perform a sit to stand without use of walker during evaluation. Pt kicks R foot out when performing sit to stand and puts most of weight onto L LE OP Gait Assessment Gait Gait Assistance Required: Independent Able to Maintain Weight Bearing Status Yes During Gait Assistive Devices Assistive Device Front Wheeled Walker Orthotic/Prosthetic Devices or Brace: No Gait Deviations General Gait Pattern Antalgic,Decreased Stride Length Comments Gait Comments Pt is able to perform step through gait pattern, but is unequal and does not step through as much with her L LE enough to surpass her R foot. Pt uses 2WW and puts a lot of weigt through arms during gait. Pt does not extend B knees fully during gait. PT-OP-J Posture/Palpation/Skin Start: 08/10/19 09:54 Freq: Status: Active Protocol: Document 08/10/19 10:30 MT (Rec: 08/10/19 14:03 MT [id number]) Skin Assessment Incisional Assessment Incision Appearance/Comments Pt has B compression stockings on, as recommedned by her surgeon. Incision on R LE is covered with bandage. There is increased edema in R LE vs L LE. Pt has marked bruising around incisional area that extends beyond badange boundaries. Pt also has bruising in R UE from IV placement. PT-OP-K Range of Motion Start: 08/10/19 09:54 Freq: Status: Active Protocol: Document 08/10/19 10:30 MT (Rec: 08/10/19 14:03 MT [id number]) Knee Goniometric Range of Motion Knee Left Patient Position Supine Flexion Active (degrees) 100 Extension Active (degrees) 5 Right Patient Position Supine Flexion Active (degrees) 54 Extension Active (degrees) 18 Extension Passive (degrees) 13 Knee ROM Limitations Comments in sitting L: lacking 6 deg into ext L & lacking 35 deg into ext R PT-OP-M Strength Start: 08/10/19 09:54 Freq: Status: Active Protocol: Document 08/10/19 10:30 MT (Rec: 08/10/19 14:03 MT [id number]) Hip Strength Hip Manual Muscle Testing Left Flexion (L2) 4- Good- Abduction 4 Good External Rotation 4- Good- Internal Rotation 4 Good Right Flexion (L2) 2+ Poor+ Abduction 4 Good External Rotation 3+ Fair+ Internal Rotation 3+ Fair+ Comments pt lacking full ext on R Knee Strength Knee Manual Muscle Testing Left Flexion (S2) 4+ Good+ Extension (L3) 5 Normal Comments measured in sitting position Right Flexion (S2) 2+ Poor+ Extension (L3) 2+ Poor+ Comments measured in sidelying for gravity eliminated position Ankle/Foot Strength Ankle and Foot Manual Muscle Testing Left Dorsiflexion (L4) 4+ Good+ Plantarflexion (S1) 4 Good Right Dorsiflexion (L4) 3 Fair Plantarflexion (S1) 4+ Good+ Comments PF tested in seated B PT-OP-Q Treatments Start: 08/10/19 09:54 Freq: Status: Active Protocol: Document 09/07/19 10:40 [facility] (Rec: 09/07/19 11:47 [facility] [id number]) Cardio Equipment Recumbent Elliptical (Biodex) Duration (Minutes) 8 Resistance 1 Seat Position 6-4 Therapeutic Exercises Standing Exercises sit<>stand Standing Exercise Name w/inc knee flex as tolerated Side bilateral Reps/Minutes 4 knee flex Standing Exercise Name flex to sext Side right Reps/Minutes 20 Comments onto stair Manual Therapy Treatment Soft Tissue Mobilization ITB Body Location R Mobilization Type Rolling Joint Mobilizations tibfib Joint R proximal Direction PA FM Grade II TF Joint R Direction AP on femur & tibia & PA FM Grade II PF Joint R Direction sup, inf, med PT-OP-T Assessment and Plan Start: 08/10/19 09:54 Freq: Status: Active Protocol: Document 09/07/19 10:40 [facility] (Rec: 09/07/19 11:47 [facility] [id number]) Physical Therapy Assessment Goals stairs Snf Goal (LTG) pt will be able to ascend/ descend stairs using reciprocal gait and use of railing on one side in order to improve pt functional mobility and independence around home LTG Duration 11/09/19 LEFS Snf Goal (LTG) Pt will improve LEFS score to a 60/80 in order to demonstrate improved ability and independence to carry out ADL's and functional movement LTG Duration 11/09/19 gait Short Term Goal (STG) pt will increase Tinetti score to 24/28 in order to demonstrate increased balance and gait and decreased risk category for falls STG Duration 10/11/19 Snf Goal (LTG) pt will be able to ambulate independently with SPC and minimal gait deviations in order to be able to return to walking her dog LTG Duration 11/09/19 ROM Short Term Goal (STG) Pt will increase R active knee extension to lacking 10 degrees in order to improve pt ability to extend knee for increased stability in gait STG Duration 09/10/19 Snf Goal (LTG) Pt will be able to achieve 120 degrees of R knee flexion in order to return to riding a bie and be able to get into a sitting kyak LTG Duration 11/09/19 strength Short Term Goal (STG) pt will be compliant and independent with HEP STG Duration 09/10/19 Marketing Intelligence Analyst Goal (LTG) Pt will increase R LE strength to at least 4+/5 for all motions in order to increase independence with ADL's LTG Duration 11/09/19 Assessment Summary Assessment Pt started today with about 10 -50 deg with improvement to 54 deg flex after manual treatment. She is encouraged to inc amt of stretching into flex she is doing at home at this time. She cont to have stiffness of patellar mobility . Physical Therapy Plan Frequency and Duration Frequency of Treatment 2x/Week Duration of Treatment 3 months Plan of Care Start Date 08/10/19 Plan of Care End Date 11/09/19 Next Visit Focus/Plan Next Note Type Treatment Note Next Visit Plan work on progression of ROM, begin light manual therapy for increasing ROM but avoid calf and popliteal fossa for manual treatment
--- NOTE | 2019-09-10 17:57 | PT.OTN ---
Current Diagnoses Unilateral primary osteoarthritis, right knee (09/10/19) Stiffness of right knee, not elsewhere classified (09/10/19) Difficulty in walking, not elsewhere classified (09/10/19) Weakness (09/10/19) Physical Therapy Treatment Note PT-OP-A Visit Information Start: 08/10/19 09:54 Freq: Status: Active Protocol: Document 09/10/19 13:06 [facility] (Rec: 09/10/19 17:57 [facility] [id number]) Out-Patient Physical Therapy Visit Information Visit Information Visit Type Treatment Note Visit Start Time 13:00 Visit Stop Time 13:40 Total Visit Minutes 40 Visit Number 7 Number of BINGO CLERK Visits 0 PT-OP-B Current Condition Start: 08/10/19 09:54 Freq: Status: Active Protocol: Document 08/10/19 10:30 [facility] (Rec: 08/10/19 14:03 MT [id number]) Current Condition History of Current Condition Onset Date 08/06/19 History of Current Condition pt had R TKA on 08/06/19 in [place] to address oasteoarthritis. Pt currently uses 2WW for ambulation. Pt has cane that she used prior to surgery due to her knee pain and feeling like her knee was giving way. She had a L TKA 5 years ago and recovered from that well, but she reports that it still gives her issues with stairs and she has not been able to fully regain her ROM. She used to lead with her right LE when going up stairs but now she leads with her left one. She has trouble picking things up from the ground. Pt has a walk-in shower with shower seat and pt has a laundry housekeeping aide. She has stairs in her home but does not need to use them in order to live in her home. Pt lives at home with her who is able to help her with her mobility and helping her through her exercises. Pt reports that she still struggles with moving her leg when getting into bed and requires a leg assist. Treatment Goals Patient/Caregiver Goals be able to use the stairs again, get back to riding the bicycle, be able to get into/ out of kyak, getting back to walking her dog (20 minutes) PT-OP-C Subjective Start: 08/10/19 09:54 Freq: Status: Active Protocol: Document 09/10/19 13:06 [facility] (Rec: 09/10/19 17:57 [facility] [id number]) OP-PT Subjective Patient Comments Patient Comments Pt reports she plans to go to the grocery store today with her and already went out to lunch which is only the 2nd time since the surgery PT-OP-E Functional Tests Start: 08/10/19 09:54 Freq: Status: Active Protocol: Document 08/10/19 10:30 MT (Rec: 08/10/19 14:03 MT [id number]) Functional Tests Tinetti Balance and Gait Assessment Balance Score 12 Gait Score 6 Composite Score 18/28 - high fall risk category Balance Score Impairment Rating 20 to <40% Impaired (Score 10- 12) Gait Score Impairment Rating 40 to <60% Impaired (Score 5-7 ) Composite Score Impairment Rating 20 to <40% Impaired (Score 17- 22) PT-OP-G Mobility & Gait Start: 08/10/19 09:54 Freq: Status: Active Protocol: Document 08/10/19 10:30 MT (Rec: 08/10/19 14:03 MT [id number]) OP Mobility Evaluation Bed Mobility Supine to and from Sit Pt requires ModA for supine to sit and sit to supine d/t requiring assistance for moving her R LE Transfers Sit to Stand pt typically uses 2WW for sit to stand, but was able to perform a sit to stand without use of walker during evaluation. Pt kicks R foot out when performing sit to stand and puts most of weight onto L LE OP Gait Assessment Gait Gait Assistance Required: Independent Able to Maintain Weight Bearing Status Yes During Gait Assistive Devices Assistive Device Front Wheeled Walker Orthotic/Prosthetic Devices or Brace: No Gait Deviations General Gait Pattern Antalgic,Decreased Stride Length Comments Gait Comments Pt is able to perform step through gait pattern, but is unequal and does not step through as much with her L LE enough to surpass her R foot. Pt uses 2WW and puts a lot of weigt through arms during gait. Pt does not extend B knees fully during gait. PT-OP-J Posture/Palpation/Skin Start: 08/10/19 09:54 Freq: Status: Active Protocol: Document 08/10/19 10:30 MT (Rec: 08/10/19 14:03 MT [id number]) Skin Assessment Incisional Assessment Incision Appearance/Comments Pt has B compression stockings on, as recommedned by her surgeon. Incision on R LE is covered with bandage. There is increased edema in R LE vs L LE. Pt has marked bruising around incisional area that extends beyond badange boundaries. Pt also has bruising in R UE from IV placement. PT-OP-K Range of Motion Start: 08/10/19 09:54 Freq: Status: Active Protocol: Document 08/10/19 10:30 MT (Rec: 08/10/19 14:03 MT [id number]) Knee Goniometric Range of Motion Knee Left Patient Position Supine Flexion Active (degrees) 100 Extension Active (degrees) 5 Right Patient Position Supine Flexion Active (degrees) 54 Extension Active (degrees) 18 Extension Passive (degrees) 13 Knee ROM Limitations Comments in sitting L: lacking 6 deg into ext L & lacking 35 deg into ext R PT-OP-M Strength Start: 08/10/19 09:54 Freq: Status: Active Protocol: Document 08/10/19 10:30 [facility] (Rec: 08/10/19 14:03 MT [id number]) Hip Strength Hip Manual Muscle Testing Left Flexion (L2) 4- Good- Abduction 4 Good External Rotation 4- Good- Internal Rotation 4 Good Right Flexion (L2) 2+ Poor+ Abduction 4 Good External Rotation 3+ Fair+ Internal Rotation 3+ Fair+ Comments pt lacking full ext on R Knee Strength Knee Manual Muscle Testing Left Flexion (S2) 4+ Good+ Extension (L3) 5 Normal Comments measured in sitting position Right Flexion (S2) 2+ Poor+ Extension (L3) 2+ Poor+ Comments measured in sidelying for gravity eliminated position Ankle/Foot Strength Ankle and Foot Manual Muscle Testing Left Dorsiflexion (L4) 4+ Good+ Plantarflexion (S1) 4 Good Right Dorsiflexion (L4) 3 Fair Plantarflexion (S1) 4+ Good+ Comments PF tested in seated B PT-OP-Q Treatments Start: 08/10/19 09:54 Freq: Status: Active Protocol: Document 09/10/19 13:06 [facility] (Rec: 09/10/19 17:57 [facility] [id number]) Cardio Equipment Recumbent Elliptical (Biodex) Duration (Minutes) 8 Resistance 1 Seat Position 5-4 Gym Equipment Shuttle Recovery Unilateral Squats Resistance 12 Shuttle Recovery Platform Stable Reps/Time 15 Bilateral Squats Details for range Resistance 50# Shuttle Recovery Platform Stable Reps/Time 30 Therapeutic Exercises Standing Exercises hip flex Standing Exercise Name marching Side bilateral Reps/Minutes 10 Gait Training Gait Activity stiars Comments 1. 4 in step up w/R and down using L x10 2. reciprocallly up/down 4 in steps-1 rail up and 2 down x3 3 step ups onto 6 in step R x8 Manual Therapy Treatment Soft Tissue Mobilization HS Body Location med proximal HS Mobilization Type Strumming Manual Techniques stretching Type 3 way c/r for HS stretch PT-OP-T Assessment and Plan Start: 08/10/19 09:54 Freq: Status: Active Protocol: Document 09/10/19 13:06 [facility] (Rec: 09/10/19 17:57 [facility] [id number]) Physical Therapy Assessment Goals stairs Branch Office Administrator Goal (LTG) pt will be able to ascend/ descend stairs using reciprocal gait and use of railing on one side in order to improve pt functional mobility and independence around home LTG Duration 11/09/19 LEFS Branch Office Administrator Goal (LTG) Pt will improve LEFS score to a 60/80 in order to demonstrate improved ability and independence to carry out ADL's and functional movement LTG Duration 11/09/19 gait Short Term Goal (STG) pt will increase Tinetti score to 24/28 in order to demonstrate increased balance and gait and decreased risk category for falls STG Duration 10/11/19 Custodial Goal (LTG) pt will be able to ambulate independently with SPC and minimal gait deviations in order to be able to return to walking her dog LTG Duration 11/09/19 ROM Short Term Goal (STG) Pt will increase R active knee extension to lacking 10 degrees in order to improve pt ability to extend knee for increased stability in gait STG Duration 09/10/19 Branch Office Administrator Goal (LTG) Pt will be able to achieve 120 degrees of R knee flexion in order to return to riding a bie and be able to get into a sitting kyak LTG Duration 11/09/19 strength Short Term Goal (STG) pt will be compliant and independent with HEP STG Duration 09/10/19 Custodial Goal (LTG) Pt will increase R LE strength to at least 4+/5 for all motions in order to increase independence with ADL's LTG Duration 3/16/20 Assessment Summary Assessment Pt started today with about 10 -52 deg with improvement to 58 deg flex after manual treatment. She was able to do 4 in steps reciprocally up with 1 rail but required 2 rails to descend. She is able to move through about 10-45 deg without signficant difficulty today but still struggles to inc range. Physical Therapy Plan Frequency and Duration Frequency of Treatment 2x/Week Duration of Treatment 3 months Plan of Care Start Date 08/10/19 Plan of Care End Date 11/09/19 Next Visit Focus/Plan Next Note Type Treatment Note Next Visit Plan work on progression of ROM & strength, begin light manual therapy for increasing ROM but avoid calf and popliteal fossa for manual treatment
--- NOTE | 2019-09-14 11:49 | PT.OTN ---
Current Diagnoses Unilateral primary osteoarthritis, right knee (09/14/19) Stiffness of right knee, not elsewhere classified (09/14/19) Difficulty in walking, not elsewhere classified (09/14/19) Weakness (09/14/19) Physical Therapy Treatment Note PT-OP-A Visit Information Start: 08/10/19 09:54 Freq: Status: Active Protocol: Document 09/14/19 11:34 [facility] (Rec: 09/14/19 11:49 [facility] [id number]) Out-Patient Physical Therapy Visit Information Visit Information Visit Type Treatment Note Visit Start Time 10:35 Visit Stop Time 11:30 Total Visit Minutes 55 Visit Number 8 Number of SCRAP HOIST OPERATOR Visits 0 PT-OP-B Current Condition Start: 08/10/19 09:54 Freq: Status: Active Protocol: Document 08/10/19 10:30 [facility] (Rec: 08/10/19 14:03 MT [id number]) Current Condition History of Current Condition Onset Date 08/06/19 History of Current Condition pt had R TKA on 08/06/19 in [place] to address oasteoarthritis. Pt currently uses 2WW for ambulation. Pt has cane that she used prior to surgery due to her knee pain and feeling like her knee was giving way. She had a L TKA 5 years ago and recovered from that well, but she reports that it still gives her issues with stairs and she has not been able to fully regain her ROM. She used to lead with her right LE when going up stairs but now she leads with her left one. She has trouble picking things up from the ground. Pt has a walk-in shower with shower seat and pt has a ball point splitter. She has stairs in her home but does not need to use them in order to live in her home. Pt lives at home with her who is able to help her with her mobility and helping her through her exercises. Pt reports that she still struggles with moving her leg when getting into bed and requires a leg assist. Treatment Goals Patient/Caregiver Goals be able to use the stairs again, get back to riding the bicycle, be able to get into/ out of kyak, getting back to walking her dog (20 minutes) PT-OP-C Subjective Start: 08/10/19 09:54 Freq: Status: Active Protocol: Document 09/14/19 11:34 [facility] (Rec: 09/14/19 11:49 [facility] [id number]) OP-PT Subjective Patient Comments Patient Comments Pt reports she did a small walk in their neighborhood and was exhausted. PT-OP-E Functional Tests Start: 08/10/19 09:54 Freq: Status: Active Protocol: Document 08/10/19 10:30 [facility] (Rec: 08/10/19 14:03 MT [id number]) Functional Tests Tinetti Balance and Gait Assessment Balance Score 12 Gait Score 6 Composite Score 18/28 - high fall risk category Balance Score Impairment Rating 20 to <40% Impaired (Score 10- 12) Gait Score Impairment Rating 40 to <60% Impaired (Score 5-7 ) Composite Score Impairment Rating 20 to <40% Impaired (Score 17- 22) PT-OP-G Mobility & Gait Start: 08/10/19 09:54 Freq: Status: Active Protocol: Document 08/10/19 10:30 [facility] (Rec: 08/10/19 14:03 MT [id number]) OP Mobility Evaluation Bed Mobility Supine to and from Sit Pt requires ModA for supine to sit and sit to supine d/t requiring assistance for moving her R LE Transfers Sit to Stand pt typically uses 2WW for sit to stand, but was able to perform a sit to stand without use of walker during evaluation. Pt kicks R foot out when performing sit to stand and puts most of weight onto L LE OP Gait Assessment Gait Gait Assistance Required: Independent Able to Maintain Weight Bearing Status Yes During Gait Assistive Devices Assistive Device Front Wheeled Walker Orthotic/Prosthetic Devices or Brace: No Gait Deviations General Gait Pattern Antalgic,Decreased Stride Length Comments Gait Comments Pt is able to perform step through gait pattern, but is unequal and does not step through as much with her L LE enough to surpass her R foot. Pt uses 2WW and puts a lot of weigt through arms during gait. Pt does not extend B knees fully during gait. PT-OP-J Posture/Palpation/Skin Start: 08/10/19 09:54 Freq: Status: Active Protocol: Document 08/10/19 10:30 MT (Rec: 08/10/19 14:03 MT [id number]) Skin Assessment Incisional Assessment Incision Appearance/Comments Pt has B compression stockings on, as recommedned by her surgeon. Incision on R LE is covered with bandage. There is increased edema in R LE vs L LE. Pt has marked bruising around incisional area that extends beyond badange boundaries. Pt also has bruising in R UE from IV placement. PT-OP-K Range of Motion Start: 08/10/19 09:54 Freq: Status: Active Protocol: Document 08/10/19 10:30 MT (Rec: 08/10/19 14:03 MT [id number]) Knee Goniometric Range of Motion Knee Left Patient Position Supine Flexion Active (degrees) 100 Extension Active (degrees) 5 Right Patient Position Supine Flexion Active (degrees) 54 Extension Active (degrees) 18 Extension Passive (degrees) 13 Knee ROM Limitations Comments in sitting L: lacking 6 deg into ext L & lacking 35 deg into ext R PT-OP-M Strength Start: 08/10/19 09:54 Freq: Status: Active Protocol: Document 08/10/19 10:30 [facility] (Rec: 08/10/19 14:03 MT [id number]) Hip Strength Hip Manual Muscle Testing Left Flexion (L2) 4- Good- Abduction 4 Good External Rotation 4- Good- Internal Rotation 4 Good Right Flexion (L2) 2+ Poor+ Abduction 4 Good External Rotation 3+ Fair+ Internal Rotation 3+ Fair+ Comments pt lacking full ext on R Knee Strength Knee Manual Muscle Testing Left Flexion (S2) 4+ Good+ Extension (L3) 5 Normal Comments measured in sitting position Right Flexion (S2) 2+ Poor+ Extension (L3) 2+ Poor+ Comments measured in sidelying for gravity eliminated position Ankle/Foot Strength Ankle and Foot Manual Muscle Testing Left Dorsiflexion (L4) 4+ Good+ Plantarflexion (S1) 4 Good Right Dorsiflexion (L4) 3 Fair Plantarflexion (S1) 4+ Good+ Comments PF tested in seated B PT-OP-Q Treatments Start: 08/10/19 09:54 Freq: Status: Active Protocol: Document 09/14/19 11:34 [facility] (Rec: 09/14/19 11:49 [facility] [id number]) Cardio Equipment Recumbent Elliptical (Biodex) Duration (Minutes) 8 Resistance 1 Seat Position 5-3 Gym Equipment Shuttle Balance red clips Details fwd & side: wbos & NBOS Therapeutic Exercises Sitting Exercises knee flex Sitting Exercise Name knee flex w/scooting fwd & knee flex dangling w/alt leg strtch Gait Training Gait Activity stiars Comments 1. reciprocallly up/down 4 in steps-1 rail up and 2 down x3 2. step ups reciprocally 6 in steps & down 4 in x3 Manual Therapy Treatment Soft Tissue Mobilization ITB Body Location R bwtn VL & ITB Mobilization Type Rolling Joint Mobilizations PF Joint R Direction sup, inf, med Self-Care/Home Management Treatment Education Patient Education Home Exercise Program Other Education self patellar mobs, edu of importance of discussing lack of sleep with MD & trying natural things like tea or dec screen time before bed. Dicussing with MD that manages [facility] at [facility] PT-OP-T Assessment and Plan Start: 08/10/19 09:54 Freq: Status: Active Protocol: Document 09/14/19 11:34 [facility] (Rec: 09/14/19 11:49 [facility] [id number]) Physical Therapy Assessment Goals stairs Cook Helper [employer]ry Goal (LTG) pt will be able to ascend/ descend stairs using reciprocal gait and use of railing on one side in order to improve pt functional mobility and independence around home LTG Duration 11/09/19 LEFS Cook Helper [place] Goal (LTG) Pt will improve LEFS score to a 60/80 in order to demonstrate improved ability and independence to carry out ADL's and functional movement LTG Duration 11/09/19 gait Short Term Goal (STG) pt will increase Tinetti score to 24/28 in order to demonstrate increased balance and gait and decreased risk category for falls STG Duration 10/11/19 Cook Helper [place] Goal (LTG) pt will be able to ambulate independently with SPC and minimal gait deviations in order to be able to return to walking her dog LTG Duration 11/09/19 ROM Short Term Goal (STG) Pt will increase R active knee extension to lacking 10 degrees in order to improve pt ability to extend knee for increased stability in gait STG Duration 09/10/19 Snf Goal (LTG) Pt will be able to achieve 120 degrees of R knee flexion in order to return to riding a bie and be able to get into a sitting kyak LTG Duration 11/09/19 strength Short Term Goal (STG) pt will be compliant and independent with HEP STG Duration 09/10/19 Cook Helper [place] Goal (LTG) Pt will increase R LE strength to at least 4+/5 for all motions in order to increase independence with ADL's LTG Duration 11/09/19 Assessment Summary Assessment Pt started with 8-60 deg ROM today after exercises. She is gradually progressing in her ROM and was educated on pushing her ROM more in order to progress further. Physical Therapy Plan Frequency and Duration Frequency of Treatment 2x/Week Duration of Treatment 3 months Plan of Care Start Date 08/10/19 Plan of Care End Date 11/09/19 Next Visit Focus/Plan Next Note Type Progress Note Next Visit Plan work on progression of ROM & strength & balance, begin light manual therapy for increasing ROM but avoid calf and popliteal fossa for manual treatment
--- NOTE | 2019-09-17 15:46 | PT.OTN ---
Current Diagnoses Unilateral primary osteoarthritis, right knee (09/17/19) Stiffness of right knee, not elsewhere classified (09/17/19) Difficulty in walking, not elsewhere classified (09/17/19) Weakness (09/17/19) Physical Therapy Treatment Note PT-OP-A Visit Information Start: 08/10/19 09:54 Freq: Status: Active Protocol: Document 09/17/19 13:01 [facility] (Rec: 09/17/19 15:46 [facility] [id number]) Out-Patient Physical Therapy Visit Information Visit Information Visit Type Progress Note Visit Note 09/04 Visit Start Time 13:00 Visit Stop Time 13:45 Total Visit Minutes 45 Visit Number 9 Number of [facility] Visits 0 PT-OP-B Current Condition Start: 08/10/19 09:54 Freq: Status: Active Protocol: Document 08/10/19 10:30 [facility] (Rec: 08/10/19 14:03 MT [id number]) Current Condition History of Current Condition Onset Date 08/06/19 History of Current Condition pt had R TKA on 08/06/19 in [place] to address oasteoarthritis. Pt currently uses 2WW for ambulation. Pt has cane that she used prior to surgery due to her knee pain and feeling like her knee was giving way. She had a L TKA 5 years ago and recovered from that well, but she reports that it still gives her issues with stairs and she has not been able to fully regain her ROM. She used to lead with her right LE when going up stairs but now she leads with her left one. She has trouble picking things up from the ground. 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 She has stairs in her home but does not need to use them in order to live in her home. Pt lives at home with her who is able to help her with her mobility and helping her through her exercises. Pt reports that she still struggles with moving her leg when getting into bed and requires a leg assist. Treatment Goals Patient/Caregiver Goals be able to use the stairs again, get back to riding the bicycle, be able to get into/ out of kyak, getting back to walking her dog (20 minutes) PT-OP-C Subjective Start: 08/10/19 09:54 Freq: Status: Active Protocol: Document 09/17/19 13:01 [facility] (Rec: 09/17/19 15:46 [facility] [id number]) OP-PT Subjective Patient Comments Patient Comments Pt reports overall doing well. She is not using the cane as much at home. PT-OP-E Functional Tests Start: 08/10/19 09:54 Freq: Status: Active Protocol: Document 09/17/19 13:01 [facility] (Rec: 09/17/19 15:46 [facility] [id number]) Functional Tests Tinetti Balance and Gait Assessment Balance Score 25 PT-OP-G Mobility & Gait Start: 08/10/19 09:54 Freq: Status: Active Protocol: Document 08/10/19 10:30 MT (Rec: 08/10/19 14:03 MT [id number]) OP Mobility Evaluation Bed Mobility Supine to and from Sit Pt requires ModA for supine to sit and sit to supine d/t requiring assistance for moving her R LE Transfers Sit to Stand pt typically uses 2WW for sit to stand, but was able to perform a sit to stand without use of walker during evaluation. Pt kicks R foot out when performing sit to stand and puts most of weight onto L LE OP Gait Assessment Gait Gait Assistance Required: Independent Able to Maintain Weight Bearing Status Yes During Gait Assistive Devices Assistive Device Front Wheeled Walker Orthotic/Prosthetic Devices or Brace: No Gait Deviations General Gait Pattern Antalgic,Decreased Stride Length Comments Gait Comments Pt is able to perform step through gait pattern, but is unequal and does not step through as much with her L LE enough to surpass her R foot. Pt uses 2WW and puts a lot of weigt through arms during gait. Pt does not extend B knees fully during gait. PT-OP-J Posture/Palpation/Skin Start: 08/10/19 09:54 Freq: Status: Active Protocol: Document 08/10/19 10:30 [facility] (Rec: 08/10/19 14:03 MT [id number]) Skin Assessment Incisional Assessment Incision Appearance/Comments Pt has B compression stockings on, as recommedned by her surgeon. Incision on R LE is covered with bandage. There is increased edema in R LE vs L LE. Pt has marked bruising around incisional area that extends beyond badange boundaries. Pt also has bruising in R UE from IV placement. PT-OP-K Range of Motion Start: 08/10/19 09:54 Freq: Status: Active Protocol: Document 09/17/19 13:01 [facility] (Rec: 09/17/19 15:46 [facility] [id number]) Knee Goniometric Range of Motion Knee Right Flexion Active (degrees) 60 Extension Active (degrees) 10 PT-OP-M Strength Start: 08/10/19 09:54 Freq: Status: Active Protocol: Document 09/17/19 13:01 [facility] (Rec: 09/17/19 15:46 [facility] [id number]) Hip Strength Hip Manual Muscle Testing Left Flexion (L2) 4 Good Extension (S1) 4- Good- Abduction 4+ Good+ External Rotation 4 Good Internal Rotation 4 Good Right Flexion (L2) 3 Fair Extension (S1) 3+ Fair+ Abduction 4+ Good+ External Rotation 3+ Fair+ Internal Rotation 3+ Fair+ Comments pt lacking full ext on R Knee Strength Knee Manual Muscle Testing Left Flexion (S2) 5 Normal Extension (L3) 5 Normal Comments measured in sitting position Right Flexion (S2) 3+ Fair+ Extension (L3) 4 Good Comments measured in sidelying for gravity eliminated position Ankle/Foot Strength Ankle and Foot Manual Muscle Testing Left Dorsiflexion (L4) 4+ Good+ Plantarflexion (S1) 4 Good Right Dorsiflexion (L4) 4 Good Plantarflexion (S1) 4+ Good+ Comments PF tested in seated B PT-OP-Q Treatments Start: 08/10/19 09:54 Freq: Status: Active Protocol: Document 09/17/19 13:01 [facility] (Rec: 09/17/19 15:46 [facility] [id number]) Cardio Equipment Recumbent Stepper (Sci-Fit) Duration (Minutes) 7 Resistance 1 Seat Position 7-5 Manual Therapy Treatment Soft Tissue Mobilization tibia Body Location circumfrential MRF Joint Mobilizations PF Joint R Direction sup, inf, med Self-Care/Home Management Treatment Education Patient Education Home Exercise Program PT-OP-T Assessment and Plan Start: 08/10/19 09:54 Freq: Status: Active Protocol: Document 09/17/19 13:01 [facility] (Rec: 09/17/19 15:46 [facility] [id number]) Physical Therapy Assessment Goals stairs Penitentiary Goal (LTG) pt will be able to ascend/ descend stairs using reciprocal gait and use of railing on one side in order to improve pt functional mobility and independence around home 09/17-able to ascend 4 in step 1 rail and decend 4 in step with 2 rails LTG Duration 11/09/19 LEFS Penitentiary Goal (LTG) Pt will improve LEFS score to a 60/80 in order to demonstrate improved ability and independence to carry out ADL's and functional movement LTG Duration 11/09/19 gait Short Term Goal (STG) pt will increase Tinetti score to 24/28 in order to demonstrate increased balance and gait and decreased risk category for falls STG Duration achieved Penitentiary Goal (LTG) pt will be able to ambulate independently with SPC and minimal gait deviations in order to be able to return to walking her dog 09/17-able to walk with cane but not with dog LTG Duration 11/09/19 ROM Short Term Goal (STG) Pt will increase R active knee extension to lacking 10 degrees in order to improve pt ability to extend knee for increased stability in gait STG Duration achieved Director [employer] Goal (LTG) Pt will be able to achieve 120 degrees of R knee flexion in order to return to riding a bie and be able to get into a sitting kyak 09/17-very slowly progressing since cleared to resume PT after DVT LTG Duration 11/09/19 strength Short Term Goal (STG) pt will be compliant and independent with HEP STG Duration achieved Penitentiary Goal (LTG) Pt will increase R LE strength to at least 4+/5 for all motions in order to increase independence with ADL's 09/17-improving ADL independence & strength LTG Duration 11/09/19 Assessment Summary Assessment Pt is improving since her return to PT since clearance after DVT. Her balance, gait and overall strength has improved but ROM is a significant concern as ROM is still limited at 10-60 degrees . She has only increased about 15 dec over the past 3 weeks since returning after DVT. Physical Therapy Plan Frequency and Duration Frequency of Treatment 2x/Week Duration of Treatment 3 months Plan of Care Start Date 08/10/19 Plan of Care End Date 11/09/19 Next Visit Focus/Plan Next Note Type Treatment Note Next Visit Plan work on progression of ROM & strength & balance, begin light manual therapy for increasing ROM but avoid calf and popliteal fossa for manual treatment
--- NOTE | 2019-09-23 14:18 | PT.OTN ---
Current Diagnoses Unilateral primary osteoarthritis, right knee (09/23/19) Stiffness of right knee, not elsewhere classified (09/23/19) Difficulty in walking, not elsewhere classified (09/23/19) Weakness (09/23/19) Physical Therapy Treatment Note PT-OP-A Visit Information Start: 08/10/19 09:54 Freq: Status: Active Protocol: Document 09/23/19 09:48 [facility] (Rec: 09/23/19 09:57 [facility] [id number]) Out-Patient Physical Therapy Visit Information Visit Information Visit Type Treatment Note Visit Start Time 09:45 Visit Stop Time 10:55 Total Visit Minutes 55 Visit Number 10 PT-OP-B Current Condition Start: 08/10/19 09:54 Freq: Status: Active Protocol: Document 08/10/19 10:30 [facility] (Rec: 08/10/19 14:03 MT [id number]) Current Condition History of Current Condition Onset Date 08/06/19 History of Current Condition pt had R TKA on 08/06/19 in [place] to address oasteoarthritis. Pt currently uses 2WW for ambulation. Pt has cane that she used prior to surgery due to her knee pain and feeling like her knee was giving way. She had a L TKA 5 years ago and recovered from that well, but she reports that it still gives her issues with stairs and she has not been able to fully regain her ROM. She used to lead with her right LE when going up stairs but now she leads with her left one. She has trouble picking things up from the ground. Pt has a walk-in shower with shower seat and pt has a shirt cleaner. She has stairs in her home but does not need to use them in order to live in her home. Pt lives at home with her who is able to help her with her mobility and helping her through her exercises. Pt reports that she still struggles with moving her leg when getting into bed and requires a leg assist. Treatment Goals Patient/Caregiver Goals be able to use the stairs again, get back to riding the bicycle, be able to get into/ out of kyak, getting back to walking her dog (20 minutes) PT-OP-C Subjective Start: 08/10/19 09:54 Freq: Status: Active Protocol: Document 09/23/19 09:48 [facility] (Rec: 09/23/19 09:57 [facility] [id number]) OP-PT Subjective Patient Comments Patient Comments PT reports she had a manipulation on saturday. She stayed the night in the hospital and had PT prior to discharge. The surgeon had gotten to 125 under anesthesia. On saturday the PT got her to 65-70 but wasn't pushing her as she had a long car ride back to [facility]. She is taking Oxycodone this am, With pain meds she is a 3-12/03 Patient Reported Progress Improving PT-OP-E Functional Tests Start: 08/10/19 09:54 Freq: Status: Active Protocol: Document 09/17/19 13:01 [facility] (Rec: 09/17/19 15:46 [facility] [id number]) Functional Tests Tinetti Balance and Gait Assessment Balance Score 25 PT-OP-G Mobility & Gait Start: 08/10/19 09:54 Freq: Status: Active Protocol: Document 08/10/19 10:30 MT (Rec: 08/10/19 14:03 MT [id number]) OP Mobility Evaluation Bed Mobility Supine to and from Sit Pt requires ModA for supine to sit and sit to supine d/t requiring assistance for moving her R LE Transfers Sit to Stand pt typically uses 2WW for sit to stand, but was able to perform a sit to stand without use of walker during evaluation. Pt kicks R foot out when performing sit to stand and puts most of weight onto L LE OP Gait Assessment Gait Gait Assistance Required: Independent Able to Maintain Weight Bearing Status Yes During Gait Assistive Devices Assistive Device Front Wheeled Walker Orthotic/Prosthetic Devices or Brace: No Gait Deviations General Gait Pattern Antalgic,Decreased Stride Length Comments Gait Comments Pt is able to perform step through gait pattern, but is unequal and does not step through as much with her L LE enough to surpass her R foot. Pt uses 2WW and puts a lot of weigt through arms during gait. Pt does not extend B knees fully during gait. PT-OP-J Posture/Palpation/Skin Start: 08/10/19 09:54 Freq: Status: Active Protocol: Document 08/10/19 10:30 [facility] (Rec: 08/10/19 14:03 MT [id number]) Skin Assessment Incisional Assessment Incision Appearance/Comments Pt has B compression stockings on, as recommedned by her surgeon. Incision on R LE is covered with bandage. There is increased edema in R LE vs L LE. Pt has marked bruising around incisional area that extends beyond badange boundaries. Pt also has bruising in R UE from IV placement. PT-OP-K Range of Motion Start: 08/10/19 09:54 Freq: Status: Active Protocol: Document 09/17/19 13:01 [facility] (Rec: 09/17/19 15:46 [facility] [id number]) Knee Goniometric Range of Motion Knee Right Flexion Active (degrees) 60 Extension Active (degrees) 10 PT-OP-M Strength Start: 08/10/19 09:54 Freq: Status: Active Protocol: Document 09/17/19 13:01 [facility] (Rec: 09/17/19 15:46 [facility] [id number]) Hip Strength Hip Manual Muscle Testing Left Flexion (L2) 4 Good Extension (S1) 4- Good- Abduction 4+ Good+ External Rotation 4 Good Internal Rotation 4 Good Right Flexion (L2) 3 Fair Extension (S1) 3+ Fair+ Abduction 4+ Good+ External Rotation 3+ Fair+ Internal Rotation 3+ Fair+ Comments pt lacking full ext on R Knee Strength Knee Manual Muscle Testing Left Flexion (S2) 5 Normal Extension (L3) 5 Normal Comments measured in sitting position Right Flexion (S2) 3+ Fair+ Extension (L3) 4 Good Comments measured in sidelying for gravity eliminated position Ankle/Foot Strength Ankle and Foot Manual Muscle Testing Left Dorsiflexion (L4) 4+ Good+ Plantarflexion (S1) 4 Good Right Dorsiflexion (L4) 4 Good Plantarflexion (S1) 4+ Good+ Comments PF tested in seated B PT-OP-Q Treatments Start: 08/10/19 09:54 Freq: Status: Active Protocol: Document 09/23/19 14:09 [facility] (Rec: 09/23/19 14:17 [facility] [id number]) Cardio Equipment Recumbent Bicycle Duration (Minutes) 6 Resistance 0 Seat Position all the way forward Other worked on rocking forward and back, no full resolution made Therapeutic Exercises Supine Exercises 2 Supine Exercise Name bridges Reps/Minutes 2 x 10 reps 1 Supine Exercise Name ball rolls for knee flexion Reps/Minutes x 20 knee flex Supine Exercise Name wall slide along PT arm Side right Reps/Minutes 10 Comments 2. gravity hang with PT holding thigh hip abd Side right Reps/Minutes 10 hip flexion Supine Exercise Name w/ active assist Side right Reps/Minutes 10 Comments pt only able to lift leg about 8 inches with active assist ankle pump Side bilateral Reps/Minutes 10 each Sitting Exercises LAQ Side right Reps/Minutes 10 knee flex Sitting Exercise Name knee flex w/scooting fwd & knee flex dangling w/alt leg strtch Manual Therapy Treatment Soft Tissue Mobilization 1 Body Location quadriceps Mobilization Type Myofascial Release, Oscillations,Rolling Intensity/Depth Moderate Body Position Supine Comments worked before and after active knee ROM Joint Mobilizations PF Joint R Direction sup, inf, med Manual Techniques 1 Type Manual knee ROM into flexion Comments with end range stretch. Got 75 degrees PROM and 70 AROM PT-OP-R Modalities Start: 08/10/19 09:54 Freq: Status: Active Protocol: Document 09/23/19 14:17 [facility] (Rec: 09/23/19 14:17 [facility] [id number]) Electric Stimulation Electric Stimulation Interferential Current (IFC) Body Location right knee/quadricep Duration (Minutes) 10 Contraction Type Normal Patient Position Supine Combined With Heat/Cold Cold Pack PT-OP-T Assessment and Plan Start: 08/10/19 09:54 Freq: Status: Active Protocol: Document 09/23/19 14:09 [facility] (Rec: 09/23/19 14:17 [facility] [id number]) Physical Therapy Assessment Assessment Summary Assessment Pt seen s/p her manipulation on saturday. Treatment emphasized knee ROM today. Her pain levels started at a 3 /10 and she still felt that same number following treatment. I was able to get her knee flexed to 75 with PROM following quad release. I started Kristi on the recumbent bike today. She wasn't able to make a full resolution but rocked back and forth. Per patient report her knee did not extend past 10 degrees under anesthesia therefore this was not pushed today. Physical Therapy Plan Frequency and Duration Frequency of Treatment 2x/Week Duration of Treatment 3 months Plan of Care Start Date 08/10/19 Plan of Care End Date 11/09/19 Next Visit Focus/Plan Next Note Type Treatment Note Next Visit Plan Continue to push knee ROM into flexion s/p manipulation
--- NOTE | 2019-09-24 10:00 | PT.OTN ---
Current Diagnoses Unilateral primary osteoarthritis, right knee (09/24/19) Stiffness of right knee, not elsewhere classified (09/24/19) Difficulty in walking, not elsewhere classified (09/24/19) Weakness (09/24/19) Physical Therapy Treatment Note PT-OP-A Visit Information Start: 08/10/19 09:54 Freq: Status: Active Protocol: Document 09/24/19 09:21 [facility] (Rec: 09/24/19 09:54 [facility] [id number]) Out-Patient Physical Therapy Visit Information Visit Information Visit Type Treatment Note Visit Start Time 09:00 Visit Stop Time 10:00 Total Visit Minutes 60 Visit Number 11 PT-OP-B Current Condition Start: 08/10/19 09:54 Freq: Status: Active Protocol: Document 08/10/19 10:30 MT (Rec: 08/10/19 14:03 MT [id number]) Current Condition History of Current Condition Onset Date 08/06/19 History of Current Condition pt had R TKA on 08/06/19 in [place] to address oasteoarthritis. Pt currently uses 2WW for ambulation. Pt has cane that she used prior to surgery due to her knee pain and feeling like her knee was giving way. She had a L TKA 5 years ago and recovered from that well, but she reports that it still gives her issues with stairs and she has not been able to fully regain her ROM. She used to lead with her right LE when going up stairs but now she leads with her left one. She has trouble picking things up from the ground. Pt has a walk-in shower with shower seat and pt has a gericare aide. She has stairs in her home but does not need to use them in order to live in her home. Pt lives at home with her who is able to help her with her mobility and helping her through her exercises. Pt reports that she still struggles with moving her leg when getting into bed and requires a leg assist. Treatment Goals Patient/Caregiver Goals be able to use the stairs again, get back to riding the bicycle, be able to get into/ out of kyak, getting back to walking her dog (20 minutes) PT-OP-C Subjective Start: 08/10/19 09:54 Freq: Status: Active Protocol: Document 09/24/19 09:21 [facility] (Rec: 09/24/19 09:54 [facility] [id number]) OP-PT Subjective Patient Comments Patient Comments pt reports she is sore pain is 2/120 She was able to go for a walk after treatment yesterday PT-OP-E Functional Tests Start: 08/10/19 09:54 Freq: Status: Active Protocol: Document 09/17/19 13:01 [facility] (Rec: 09/17/19 15:46 [facility] [id number]) Functional Tests Tinetti Balance and Gait Assessment Balance Score 25 PT-OP-G Mobility & Gait Start: 08/10/19 09:54 Freq: Status: Active Protocol: Document 08/10/19 10:30 MT (Rec: 08/10/19 14:03 MT [id number]) OP Mobility Evaluation Bed Mobility Supine to and from Sit Pt requires ModA for supine to sit and sit to supine d/t requiring assistance for moving her R LE Transfers Sit to Stand pt typically uses 2WW for sit to stand, but was able to perform a sit to stand without use of walker during evaluation. Pt kicks R foot out when performing sit to stand and puts most of weight onto L LE OP Gait Assessment Gait Gait Assistance Required: Independent Able to Maintain Weight Bearing Status Yes During Gait Assistive Devices Assistive Device Front Wheeled Walker Orthotic/Prosthetic Devices or Brace: No Gait Deviations General Gait Pattern Antalgic,Decreased Stride Length Comments Gait Comments Pt is able to perform step through gait pattern, but is unequal and does not step through as much with her L LE enough to surpass her R foot. Pt uses 2WW and puts a lot of weigt through arms during gait. Pt does not extend B knees fully during gait. PT-OP-J Posture/Palpation/Skin Start: 08/10/19 09:54 Freq: Status: Active Protocol: Document 08/10/19 10:30 MT (Rec: 08/10/19 14:03 MT [id number]) Skin Assessment Incisional Assessment Incision Appearance/Comments Pt has B compression stockings on, as recommedned by her surgeon. Incision on R LE is covered with bandage. There is increased edema in R LE vs L LE. Pt has marked bruising around incisional area that extends beyond badange boundaries. Pt also has bruising in R UE from IV placement. PT-OP-K Range of Motion Start: 08/10/19 09:54 Freq: Status: Active Protocol: Document 09/17/19 13:01 [facility] (Rec: 09/17/19 15:46 [facility] [id number]) Knee Goniometric Range of Motion Knee Right Flexion Active (degrees) 60 Extension Active (degrees) 10 PT-OP-M Strength Start: 08/10/19 09:54 Freq: Status: Active Protocol: Document 09/17/19 13:01 [facility] (Rec: 09/17/19 15:46 [facility] [id number]) Hip Strength Hip Manual Muscle Testing Left Flexion (L2) 4 Good Extension (S1) 4- Good- Abduction 4+ Good+ External Rotation 4 Good Internal Rotation 4 Good Right Flexion (L2) 3 Fair Extension (S1) 3+ Fair+ Abduction 4+ Good+ External Rotation 3+ Fair+ Internal Rotation 3+ Fair+ Comments pt lacking full ext on R Knee Strength Knee Manual Muscle Testing Left Flexion (S2) 5 Normal Extension (L3) 5 Normal Comments measured in sitting position Right Flexion (S2) 3+ Fair+ Extension (L3) 4 Good Comments measured in sidelying for gravity eliminated position Ankle/Foot Strength Ankle and Foot Manual Muscle Testing Left Dorsiflexion (L4) 4+ Good+ Plantarflexion (S1) 4 Good Right Dorsiflexion (L4) 4 Good Plantarflexion (S1) 4+ Good+ Comments PF tested in seated B PT-OP-Q Treatments Start: 08/10/19 09:54 Freq: Status: Active Protocol: Document 09/24/19 09:55 [facility] (Rec: 09/24/19 10:00 [facility] [id number]) Cardio Equipment Recumbent Bicycle Duration (Minutes) 6 Resistance 0 Seat Position all the way forward Other worked on rocking forward and back, no full resolution made Gym Equipment Shuttle Recovery Bilateral Squats Details for range Resistance 50# Shuttle Recovery Platform Stable Reps/Time 30 Therapeutic Exercises Supine Exercises 3 Supine Exercise Name gerda test position with knee flexed Comments manual stretch of the quads/ hip flexor 2 Supine Exercise Name bridges Reps/Minutes 2 x 10 reps knee extension Supine Exercise Name TKE over large bolster Reps/Minutes 2 x 10 reps Prone Exercises 1 Prone Exercise Name prone knee flexion Reps/Minutes 2 x 10 Comments with manual stretch into flexion Sitting Exercises knee flex Sitting Exercise Name knee flex w/scooting fwd & knee flex dangling w/alt leg strtch Manual Therapy Treatment Soft Tissue Mobilization 1 Body Location quadriceps Mobilization Type Myofascial Release, Oscillations,Rolling Intensity/Depth Moderate Body Position Supine Comments worked before and after active knee ROM Manual Techniques 1 Type Manual knee ROM into flexion Comments with end range stretch. Got 78 degrees PROM and 72 degress AROM PT-OP-R Modalities Start: 08/10/19 09:54 Freq: Status: Active Protocol: Document 09/24/19 09:55 [facility] (Rec: 09/24/19 10:00 [facility] [id number]) Electric Stimulation Electric Stimulation Interferential Current (IFC) Body Location right knee/quadricep Duration (Minutes) 15 Contraction Type Normal Patient Position Supine Combined With Heat/Cold Cold Pack PT-OP-T Assessment and Plan Start: 08/10/19 09:54 Freq: Status: Active Protocol: Document 09/24/19 09:55 [facility] (Rec: 09/24/19 10:00 [facility] [id number]) Physical Therapy Assessment Assessment Summary Assessment pt tolerating treatment well, pushing more into knee flexion ROM. Today PROM 78 degrees with pain levels 2/10. Decreased tightness into the quads today Physical Therapy Plan Frequency and Duration Frequency of Treatment 2x/Week Duration of Treatment 3 months Plan of Care Start Date 08/10/19 Plan of Care End Date 11/09/19 Therapeutic Interventions Therapeutic Interventions Aquatic Therapy,Balance Training,Coordination Training ,Gait Training,Home Exercise Program,Joint Mobilizations, Lymphedema Management,Manual Therapy,Neuromuscular Re- education,Patient/Caregiver Education,Self-Care/Home Management,Soft Tissue Mobilization,Taping, Therapeutic Activities, Therapeutic Exercises Modalities Cold Pack/Ice Massage,Electric Stimulation,Hot Packs, Infrared Therapy,Ultrasound Next Visit Focus/Plan Next Note Type Treatment Note Next Visit Plan Continue to push knee ROM into flexion s/p manuiplation
--- NOTE | 2019-09-24 14:35 | PT.OPPOC ---
Physical, Occupational & Speech Therapy At [facility] Current Diagnoses Unilateral primary osteoarthritis, right knee (10/05/19) Stiffness of right knee, not elsewhere classified (10/05/19) Difficulty in walking, not elsewhere classified (10/05/19) Weakness (10/05/19) Visit Care Team Role Provider Type Carly Kong DO Family Provider Physician Primary Care Provider Specialty: Family Practice Address: [address] [place] [address], [address], [address] Email: [email or web address] Gordon PA-C Attending Provider Non-Staff Specialty: Medical Address: [address] [place] [address], [id number] Email: Plan Of Care PT-OP-T Assessment and Plan Start: 08/10/19 09:54 Freq: Status: Active Protocol: Document 10/07/19 09:21 [facility] (Rec: 09/24/19 10:00 [facility] [email or web address]) Physical Therapy Assessment Goals stairs Prison Goal (LTG) pt will be able to ascend/ descend stairs using reciprocal gait and use of railing on one side in order to improve pt functional mobility and independence around home 09/17-able to ascend 4 in step 1 rail and decend 4 in step with 2 rails 10/05- LTG Duration 11/09/19 LEFS Welding Setter Goal (LTG) Pt will improve LEFS score to a 60/80 in order to demonstrate improved ability and independence to carry out ADL's and functional movement 10/05- LTG Duration 11/09/19 gait Short Term Goal (STG) pt will increase Tinetti score to 24/28 in order to demonstrate increased balance and gait and decreased risk category for falls STG Duration achieved Welding Setter Goal (LTG) pt will be able to ambulate independently with SPC and minimal gait deviations in order to be able to return to walking her dog 09/17-able to walk with cane but not with dog 10/05-walking outside but not with dog yet, still deviations LTG Duration 11/09/19 ROM Short Term Goal (STG) Pt will increase R active knee extension to lacking 10 degrees in order to improve pt ability to extend knee for increased stability in gait STG Duration achieved Prison Goal (LTG) Pt will be able to achieve 120 degrees of R knee flexion in order to return to riding a bie and be able to get into a sitting kyak 09/17-very slowly progressing since cleared to resume PT after DVT 10/05-improving since manipulation LTG Duration 11/09/19 strength Short Term Goal (STG) pt will be compliant and independent with HEP STG Duration achieved Welding Setter Goal (LTG) Pt will increase R LE strength to at least 4+/5 for all motions in order to increase independence with ADL's 09/17-improving ADL independence & strength LTG Duration 11/09/19 Assessment Summary Assessment pt tolerating treatment well, pushing more into knee flexion ROM. Today PROM 78 degress with pain levels 2/10. Decreased tightness into the quads today. Pt has a new plan of care for PT 5 days a week to keep her ROM from the manipulation Physical Therapy Plan Frequency and Duration Frequency of Treatment 5x/Week Duration of Treatment 3 months Plan of Care Start Date 09/24/19 Plan of Care End Date 11/19/19 Therapeutic Interventions Therapeutic Interventions Aquatic Therapy,Balance Training,Coordination Training ,Gait Training,Home Exercise Program,Joint Mobilizations, Lymphedema Management,Manual Therapy,Neuromuscular Re- education,Patient/Caregiver Education,Self-Care/Home Management,Soft Tissue Mobilization,Taping, Therapeutic Activities, Therapeutic Exercises Modalities Cold Pack/Ice Massage,Electric Stimulation,Hot Packs, Infrared Therapy,Ultrasound Next Visit Focus/Plan Next Note Type Treatment Note Next Visit Plan Continue to push knee ROM into flexion s/p manuiplation Plan of Care Dates Plan of Care Start Date 08/10/19 Plan of Care End Date 11/09/19 Electronically Signed by: Talisha Lakhani, PT 10/07/19 [id number] Please Sign and Return: I have reviewed this Plan of Care and certify that the skilled therapy services above are required to meet the patient?s needs. Physician Signature Date Printed Name and Credentials Clinical Instructor Signature Printed Name and Credentials
--- NOTE | 2019-09-25 11:50 | PT.OTN ---
Current Diagnoses Unilateral primary osteoarthritis, right knee (09/25/19) Stiffness of right knee, not elsewhere classified (09/25/19) Difficulty in walking, not elsewhere classified (09/25/19) Weakness (09/25/19) Physical Therapy Treatment Note PT-OP-A Visit Information Start: 08/10/19 09:54 Freq: Status: Active Protocol: Document 09/25/19 10:42 SP (Rec: 09/25/19 12:15 SP [id number]) Out-Patient Physical Therapy Visit Information Visit Information Visit Type Treatment Note Visit Note 12 min late Visit Start Time 10:42 Visit Stop Time 11:50 Total Visit Minutes 68 Visit Number 12 Number of DREDGE RUNNER Visits 1 PT-OP-B Current Condition Start: 08/10/19 09:54 Freq: Status: Active Protocol: Document 08/10/19 10:30 MT (Rec: 08/10/19 14:03 MT [id number]) Current Condition History of Current Condition Onset Date 08/06/19 History of Current Condition pt had R TKA on 08/06/19 in [place] to address oasteoarthritis. Pt currently uses 2WW for ambulation. Pt has cane that she used prior to surgery due to her knee pain and feeling like her knee was giving way. She had a L TKA 5 years ago and recovered from that well, but she reports that it still gives her issues with stairs and she has not been able to fully regain her ROM. She used to lead with her right LE when going up stairs but now she leads with her left one. She has trouble picking things up from the ground. Pt has a walk-in shower with shower seat and pt has a vp site. She has stairs in her home but does not need to use them in order to live in her home. Pt lives at home with her who is able to help her with her mobility and helping her through her exercises. Pt reports that she still struggles with moving her leg when getting into bed and requires a leg assist. Treatment Goals Patient/Caregiver Goals be able to use the stairs again, get back to riding the bicycle, be able to get into/ out of kyak, getting back to walking her dog (20 minutes) PT-OP-C Subjective Start: 08/10/19 09:54 Freq: Status: Active Protocol: Document 09/25/19 10:42 SP (Rec: 09/25/19 12:15 SP [id number]) OP-PT Subjective Patient Comments Patient Comments Pt reports still working on controlling the swelling in R knee, wearing compression knee full leg stocking for assistance. Had manipulate last Sat and feels helped with ROM. Patient Reported Progress Improving PT-OP-E Functional Tests Start: 08/10/19 09:54 Freq: Status: Active Protocol: Document 09/17/19 13:01 LR (Rec: 09/17/19 15:46 LR [id number]) Functional Tests Tinetti Balance and Gait Assessment Balance Score 25 PT-OP-G Mobility & Gait Start: 08/10/19 09:54 Freq: Status: Active Protocol: Document 08/10/19 10:30 MT (Rec: 08/10/19 14:03 MT [id number]) OP Mobility Evaluation Bed Mobility Supine to and from Sit Pt requires ModA for supine to sit and sit to supine d/t requiring assistance for moving her R LE Transfers Sit to Stand pt typically uses 2WW for sit to stand, but was able to perform a sit to stand without use of walker during evaluation. Pt kicks R foot out when performing sit to stand and puts most of weight onto L LE OP Gait Assessment Gait Gait Assistance Required: Independent Able to Maintain Weight Bearing Status Yes During Gait Assistive Devices Assistive Device Front Wheeled Walker Orthotic/Prosthetic Devices or Brace: No Gait Deviations General Gait Pattern Antalgic,Decreased Stride Length Comments Gait Comments Pt is able to perform step through gait pattern, but is unequal and does not step through as much with her L LE enough to surpass her R foot. Pt uses 2WW and puts a lot of weigt through arms during gait. Pt does not extend B knees fully during gait. PT-OP-J Posture/Palpation/Skin Start: 08/10/19 09:54 Freq: Status: Active Protocol: Document 08/10/19 10:30 MT (Rec: 08/10/19 14:03 MT [id number]) Skin Assessment Incisional Assessment Incision Appearance/Comments Pt has B compression stockings on, as recommedned by her surgeon. Incision on R LE is covered with bandage. There is increased edema in R LE vs L LE. Pt has marked bruising around incisional area that extends beyond badange boundaries. Pt also has bruising in R UE from IV placement. PT-OP-K Range of Motion Start: 08/10/19 09:54 Freq: Status: Active Protocol: Document 09/17/19 13:01 [facility] (Rec: 09/17/19 15:46 [facility] [id number]) Knee Goniometric Range of Motion Knee Right Flexion Active (degrees) 60 Extension Active (degrees) 10 PT-OP-M Strength Start: 08/10/19 09:54 Freq: Status: Active Protocol: Document 09/17/19 13:01 [facility] (Rec: 09/17/19 15:46 [facility] [id number]) Hip Strength Hip Manual Muscle Testing Left Flexion (L2) 4 Good Extension (S1) 4- Good- Abduction 4+ Good+ External Rotation 4 Good Internal Rotation 4 Good Right Flexion (L2) 3 Fair Extension (S1) 3+ Fair+ Abduction 4+ Good+ External Rotation 3+ Fair+ Internal Rotation 3+ Fair+ Comments pt lacking full ext on R Knee Strength Knee Manual Muscle Testing Left Flexion (S2) 5 Normal Extension (L3) 5 Normal Comments measured in sitting position Right Flexion (S2) 3+ Fair+ Extension (L3) 4 Good Comments measured in sidelying for gravity eliminated position Ankle/Foot Strength Ankle and Foot Manual Muscle Testing Left Dorsiflexion (L4) 4+ Good+ Plantarflexion (S1) 4 Good Right Dorsiflexion (L4) 4 Good Plantarflexion (S1) 4+ Good+ Comments PF tested in seated B PT-OP-Q Treatments Start: 08/10/19 09:54 Freq: Status: Active Protocol: Document 09/25/19 10:42 SP (Rec: 09/25/19 12:15 SP [id number]) Cardio Equipment Recumbent Bicycle Duration (Minutes) 6 Resistance 0 Seat Position all the way forward Other worked on rocking forward and back, no full resolution made Gym Equipment Shuttle Recovery Unilateral Squats Details small range Resistance 25# Shuttle Recovery Platform Stable Reps/Time 2x8 alternate Bilateral Squats Details for range Resistance 50# Shuttle Recovery Platform Stable Reps/Time 30 Therapeutic Exercises Supine Exercises knee flex Supine Exercise Name heel slide & AAROM Side right Reps/Minutes x10 knee extension Supine Exercise Name TKE over large bolster Reps/Minutes many reps Comments cued VMO facilitation, decrease pelvic lift and LLE recruitment Prone Exercises prone hang Prone Exercise Name with/without quad set Reps/Minutes incorporate with knee flexion Comments demonstrated by DREDGE RUNNER discussed Sitting Exercises knee flex Sitting Exercise Name knee flex w/scooting fwd & knee flex dangling w/alt leg stretch Resistance AAROM Equipment Used foot over small ball, elevated table Standing Exercises sit<>stand Standing Exercise Name w/inc knee flex as tolerated Side bilateral Reps/Minutes 4 Comments cue increase knee flexion foot pos, slow pacing, forward seat, even wt dist Manual Therapy Treatment Soft Tissue Mobilization 1 Body Location quadriceps Mobilization Type Myofascial Release, Oscillations,Rolling Intensity/Depth Moderate Body Position Supine Comments worked before and after active knee ROM, educated spouse for home use PT-OP-R Modalities Start: 08/10/19 09:54 Freq: Status: Active Protocol: Document 09/24/19 09:55 [facility] (Rec: 09/24/19 10:00 [facility] [id number]) Electric Stimulation Electric Stimulation Interferential Current (IFC) Body Location right knee/quadricep Duration (Minutes) 15 Contraction Type Normal Patient Position Supine Combined With Heat/Cold Cold Pack PT-OP-T Assessment and Plan Start: 08/10/19 09:54 Freq: Status: Active Protocol: Document 09/25/19 10:42 SP (Rec: 09/25/19 12:15 SP [id number]) Physical Therapy Assessment Goals stairs Chart Reader Goal (LTG) pt will be able to ascend/ descend stairs using reciprocal gait and use of railing on one side in order to improve pt functional mobility and independence around home 09/17-able to ascend 4 in step 1 rail and decend 4 in step with 2 rails LTG Duration 11/09/19 LEFS Correction Goal (LTG) Pt will improve LEFS score to a 60/80 in order to demonstrate improved ability and independence to carry out ADL's and functional movement LTG Duration 11/09/19 gait Short Term Goal (STG) pt will increase Tinetti score to 24/28 in order to demonstrate increased balance and gait and decreased risk category for falls STG Duration achieved Chart Reader Goal (LTG) pt will be able to ambulate independently with SPC and minimal gait deviations in order to be able to return to walking her dog 09/17-able to walk with cane but not with dog LTG Duration 11/09/19 ROM Short Term Goal (STG) Pt will increase R active knee extension to lacking 10 degrees in order to improve pt ability to extend knee for increased stability in gait STG Duration achieved Chart Reader Goal (LTG) Pt will be able to achieve 120 degrees of R knee flexion in order to return to riding a bie and be able to get into a sitting kyak 09/17-very slowly progressing since cleared to resume PT after DVT LTG Duration 11/09/19 strength Short Term Goal (STG) pt will be compliant and independent with HEP STG Duration achieved Correction Goal (LTG) Pt will increase R LE strength to at least 4+/5 for all motions in order to increase independence with ADL's 09/17-improving ADL independence & strength LTG Duration 11/09/19 Assessment Summary Assessment pt tolerated tx well, focused on R knee ROM into flex and ext awareness of VMO facilitation with education patient and spouse give cuing with improved decrease R pelvic lift/L glut & LE recruitment, manual superficial to moderate pressure tolerance therapist/ spouse and self using rolling pin assist swelling mgt, HEP review AROM, AAROM, isometrics , progressed in to sit to stands with cuing increased ROM with foot positioning and sitting closer to edge of chair with decreased momentum no UE support. Pt made gains in AAROM 12*-80* supine, 85* seated AAROM of R knee. Physical Therapy Plan Frequency and Duration Frequency of Treatment 2x/Week Duration of Treatment 3 months Plan of Care Start Date 08/10/19 Plan of Care End Date 11/09/19 Therapeutic Interventions Therapeutic Interventions Aquatic Therapy,Balance Training,Coordination Training ,Gait Training,Home Exercise Program,Joint Mobilizations, Lymphedema Management,Manual Therapy,Neuromuscular Re- education,Patient/Caregiver Education,Self-Care/Home Management,Soft Tissue Mobilization,Taping, Therapeutic Activities, Therapeutic Exercises Modalities Cold Pack/Ice Massage,Electric Stimulation,Hot Packs, Infrared Therapy,Ultrasound Next Visit Focus/Plan Next Note Type Treatment Note Next Visit Plan Assess AAROM and quad facilitation HEP response last tx, homework emphasis on ROM and quad retraction. Continue per PT POC: to push knee ROM into flexion s/p manuiplation
--- NOTE | 2019-09-28 11:34 | PT.OTN ---
Current Diagnoses Unilateral primary osteoarthritis, right knee (09/28/19) Stiffness of right knee, not elsewhere classified (09/28/19) Difficulty in walking, not elsewhere classified (09/28/19) Weakness (09/28/19) Physical Therapy Treatment Note PT-OP-A Visit Information Start: 08/10/19 09:54 Freq: Status: Active Protocol: Document 09/28/19 09:55 [facility] (Rec: 09/28/19 11:34 [facility] [id number]) Out-Patient Physical Therapy Visit Information Visit Information Visit Type Treatment Note Visit Start Time 09:00 Visit Stop Time 09:55 Total Visit Minutes 55 Visit Number 13 PT-OP-B Current Condition Start: 08/10/19 09:54 Freq: Status: Active Protocol: Document 08/10/19 10:30 MT (Rec: 08/10/19 14:03 MT [id number]) Current Condition History of Current Condition Onset Date 08/06/19 History of Current Condition pt had R TKA on 08/06/19 in [place] to address oasteoarthritis. Pt currently uses 2WW for ambulation. Pt has cane that she used prior to surgery due to her knee pain and feeling like her knee was giving way. She had a L TKA 5 years ago and recovered from that well, but she reports that it still gives her issues with stairs and she has not been able to fully regain her ROM. She used to lead with her right LE when going up stairs but now she leads with her left one. She has trouble picking things up from the ground. Pt has a walk-in shower with shower seat and pt has a prop and scenery maker. She has stairs in her home but does not need to use them in order to live in her home. Pt lives at home with her who is able to help her with her mobility and helping her through her exercises. Pt reports that she still struggles with moving her leg when getting into bed and requires a leg assist. Treatment Goals Patient/Caregiver Goals be able to use the stairs again, get back to riding the bicycle, be able to get into/ out of kyak, getting back to walking her dog (20 minutes) PT-OP-C Subjective Start: 08/10/19 09:54 Freq: Status: Active Protocol: Document 09/28/19 09:55 [facility] (Rec: 09/28/19 11:34 [facility] [id number]) OP-PT Subjective Patient Comments Patient Comments Pt reports compliance with exercises. Patient Reported Progress Improving PT-OP-E Functional Tests Start: 08/10/19 09:54 Freq: Status: Active Protocol: Document 09/17/19 13:01 [facility] (Rec: 09/17/19 15:46 [facility] [id number]) Functional Tests Tinetti Balance and Gait Assessment Balance Score 25 PT-OP-G Mobility & Gait Start: 08/10/19 09:54 Freq: Status: Active Protocol: Document 08/10/19 10:30 MT (Rec: 08/10/19 14:03 MT [id number]) OP Mobility Evaluation Bed Mobility Supine to and from Sit Pt requires ModA for supine to sit and sit to supine d/t requiring assistance for moving her R LE Transfers Sit to Stand pt typically uses 2WW for sit to stand, but was able to perform a sit to stand without use of walker during evaluation. Pt kicks R foot out when performing sit to stand and puts most of weight onto L LE OP Gait Assessment Gait Gait Assistance Required: Independent Able to Maintain Weight Bearing Status Yes During Gait Assistive Devices Assistive Device Front Wheeled Walker Orthotic/Prosthetic Devices or Brace: No Gait Deviations General Gait Pattern Antalgic,Decreased Stride Length Comments Gait Comments Pt is able to perform step through gait pattern, but is unequal and does not step through as much with her L LE enough to surpass her R foot. Pt uses 2WW and puts a lot of weigt through arms during gait. Pt does not extend B knees fully during gait. PT-OP-J Posture/Palpation/Skin Start: 08/10/19 09:54 Freq: Status: Active Protocol: Document 08/10/19 10:30 MT (Rec: 08/10/19 14:03 MT [id number]) Skin Assessment Incisional Assessment Incision Appearance/Comments Pt has B compression stockings on, as recommedned by her surgeon. Incision on R LE is covered with bandage. There is increased edema in R LE vs L LE. Pt has marked bruising around incisional area that extends beyond badange boundaries. Pt also has bruising in R UE from IV placement. PT-OP-K Range of Motion Start: 08/10/19 09:54 Freq: Status: Active Protocol: Document 09/17/19 13:01 [facility] (Rec: 09/17/19 15:46 [facility] [id number]) Knee Goniometric Range of Motion Knee Right Flexion Active (degrees) 60 Extension Active (degrees) 10 PT-OP-M Strength Start: 08/10/19 09:54 Freq: Status: Active Protocol: Document 09/17/19 13:01 [facility] (Rec: 09/17/19 15:46 [facility] [id number]) Hip Strength Hip Manual Muscle Testing Left Flexion (L2) 4 Good Extension (S1) 4- Good- Abduction 4+ Good+ External Rotation 4 Good Internal Rotation 4 Good Right Flexion (L2) 3 Fair Extension (S1) 3+ Fair+ Abduction 4+ Good+ External Rotation 3+ Fair+ Internal Rotation 3+ Fair+ Comments pt lacking full ext on R Knee Strength Knee Manual Muscle Testing Left Flexion (S2) 5 Normal Extension (L3) 5 Normal Comments measured in sitting position Right Flexion (S2) 3+ Fair+ Extension (L3) 4 Good Comments measured in sidelying for gravity eliminated position Ankle/Foot Strength Ankle and Foot Manual Muscle Testing Left Dorsiflexion (L4) 4+ Good+ Plantarflexion (S1) 4 Good Right Dorsiflexion (L4) 4 Good Plantarflexion (S1) 4+ Good+ Comments PF tested in seated B PT-OP-Q Treatments Start: 08/10/19 09:54 Freq: Status: Active Protocol: Document 09/28/19 09:55 [facility] (Rec: 09/28/19 11:34 [facility] [id number]) Therapeutic Exercises Standing Exercises SLS Side bilateral Reps/Minutes 5 sec x5 knee flex Side left Reps/Minutes 20 Gait Training Gait Activity gait Description walking with cane & FWW with focus on knee flex & push off Comments 2. wt shifts w/ no lat lean in mirror Manual Therapy Treatment Soft Tissue Mobilization scar tissue Body Location in knee flex Mobilization Type Rolling,Strumming 1 Body Location quadriceps Mobilization Type Myofascial Release, Oscillations,Rolling Intensity/Depth Moderate Body Position Supine Comments worked before and after active knee ROM PT-OP-R Modalities Start: 08/10/19 09:54 Freq: Status: Active Protocol: Document 09/28/19 09:55 [facility] (Rec: 09/28/19 11:34 [facility] [id number]) Electric Stimulation Electric Stimulation Interferential Current (IFC) Body Location right knee/quadricep Duration (Minutes) 15 Contraction Type Normal Patient Position Supine Combined With Heat/Cold Cold Pack PT-OP-T Assessment and Plan Start: 08/10/19 09:54 Freq: Status: Active Protocol: Document 09/28/19 09:55 [facility] (Rec: 09/28/19 11:34 [facility] [id number]) Physical Therapy Assessment Goals stairs Digital Business Analyst Goal (LTG) pt will be able to ascend/ descend stairs using reciprocal gait and use of railing on one side in order to improve pt functional mobility and independence around home 09/17-able to ascend 4 in step 1 rail and decend 4 in step with 2 rails LTG Duration 11/09/19 LEFS Digital Business Analyst Goal (LTG) Pt will improve LEFS score to a 60/80 in order to demonstrate improved ability and independence to carry out ADL's and functional movement LTG Duration 11/09/19 gait Short Term Goal (STG) pt will increase Tinetti score to 24/28 in order to demonstrate increased balance and gait and decreased risk category for falls STG Duration achieved Digital Business Analyst Goal (LTG) pt will be able to ambulate independently with SPC and minimal gait deviations in order to be able to return to walking her dog 09/17-able to walk with cane but not with dog LTG Duration 11/09/19 ROM Short Term Goal (STG) Pt will increase R active knee extension to lacking 10 degrees in order to improve pt ability to extend knee for increased stability in gait STG Duration achieved [facility] Goal (LTG) Pt will be able to achieve 120 degrees of R knee flexion in order to return to riding a bie and be able to get into a sitting kyak 09/17-very slowly progressing since cleared to resume PT after DVT LTG Duration 11/09/19 strength Short Term Goal (STG) pt will be compliant and independent with HEP STG Duration achieved [facility] Goal (LTG) Pt will increase R LE strength to at least 4+/5 for all motions in order to increase independence with ADL's 09/17-improving ADL independence & strength LTG Duration 11/09/19 Assessment Summary Assessment Pt had 76 deg of flex today and improved to 79 deg with scar tissue mobilziation. Pt encouraged to do bending exercises every hour and have help her with her gait to cont to work on ability to wt accept on RLE and to get bending of RLE. SIgnificant scar tissue rescrictions and quad. Physical Therapy Plan Frequency and Duration Frequency of Treatment 2x/Week Duration of Treatment 3 months Plan of Care Start Date 08/10/19 Plan of Care End Date 11/09/19 Next Visit Focus/Plan Next Note Type Treatment Note Next Visit Plan Continue to push knee ROM into flexion s/p manuiplation
--- NOTE | 2019-09-29 11:26 | PT.OTN ---
Current Diagnoses Unilateral primary osteoarthritis, right knee (09/29/19) Stiffness of right knee, not elsewhere classified (09/29/19) Difficulty in walking, not elsewhere classified (09/29/19) Weakness (09/29/19) Physical Therapy Treatment Note PT-OP-A Visit Information Start: 08/10/19 09:54 Freq: Status: Active Protocol: Document 09/29/19 11:26 [facility] (Rec: 09/29/19 11:44 [facility] [id number]) Out-Patient Physical Therapy Visit Information Visit Information Visit Type Treatment Note Visit Start Time 10:30 Visit Stop Time 11:35 Total Visit Minutes 65 Visit Number 14 Number of CONTINUOUS IMPROVEMENT MANAGER Visits 0 Evaluation Information Evaluation Date 08/10/19 Precautions Precautions s/p DVT and manipulation PT-OP-B Current Condition Start: 08/10/19 09:54 Freq: Status: Active Protocol: Document 08/10/19 10:30 MT (Rec: 08/10/19 14:03 MT [id number]) Current Condition History of Current Condition Onset Date 08/06/19 History of Current Condition pt had R TKA on 08/06/19 in [place] to address osteoarthritis. Pt currently uses 2WW for ambulation. Pt has cane that she used prior to surgery due to her knee pain and feeling like her knee was giving way. She had a L TKA 5 years ago and recovered from that well, but she reports that it still gives her issues with stairs and she has not been able to fully regain her ROM. She used to lead with her right LE when going up stairs but now she leads with her left one. She has trouble picking things up from the ground. Pt has a walk-in shower with shower seat and pt has a fire manager. She has stairs in her home but does not need to use them in order to live in her home. Pt lives at home with her who is able to help her with her mobility and helping her through her exercises. Pt reports that she still struggles with moving her leg when getting into bed and requires a leg assist. Treatment Goals Patient/Caregiver Goals be able to use the stairs again, get back to riding the bicycle, be able to get into/ out of kayak, getting back to walking her dog (20 minutes) PT-OP-C Subjective Start: 08/10/19 09:54 Freq: Status: Active Protocol: Document 09/29/19 11:26 [facility] (Rec: 09/29/19 11:44 [facility] [id number]) OP-PT Subjective Patient Comments Patient Comments She feels like her ongoing swelling makes it harder to bend her knee. Patient Reported Progress Improving OP-PT Pain Assessment Home Pain Medication Use Pain Medications Used Yes: takes pain medication before therapy Pain Behaviors Pain Behaviors Guarding PT-OP-E Functional Tests Start: 08/10/19 09:54 Freq: Status: Active Protocol: Document 09/17/19 13:01 LR (Rec: 09/17/19 15:46 [facility] [id number]) Functional Tests Tinetti Balance and Gait Assessment Balance Score 25 PT-OP-G Mobility & Gait Start: 08/10/19 09:54 Freq: Status: Active Protocol: Document 09/29/19 11:26 [facility] (Rec: 09/29/19 11:47 DL [id number]) OP Mobility Evaluation Bed Mobility Rolling independent Supine to and from Sit independent Transfers Sit to Stand uses UE's, tends to kick right foot out before sitting, increased weight on left LE OP Gait Assessment Gait Gait Assistance Required: Independent Assistive Devices Assistive Device Straight Cane Gait Deviations General Gait Pattern Antalgic,Decreased Stride Length Factors Limiting Gait Function Factors Limiting Gait Function Decreased Activity Tolerance, Decreased Sensation,Limited Range of Motion,Pain PT-OP-J Posture/Palpation/Skin Start: 08/10/19 09:54 Freq: Status: Active Protocol: Document 08/10/19 10:30 MT (Rec: 08/10/19 14:03 MT [id number]) Skin Assessment Incisional Assessment Incision Appearance/Comments Pt has B compression stockings on, as recommended by her surgeon. Incision on R LE is covered with bandage. There is increased edema in R LE vs L LE. Pt has marked bruising around incisional area that extends beyond badage boundaries. Pt also has bruising in R UE from IV placement. PT-OP-K Range of Motion Start: 08/10/19 09:54 Freq: Status: Active Protocol: Document 09/29/19 11:26 [facility] (Rec: 09/29/19 11:44 DLM [id number]) Knee Goniometric Range of Motion Knee Right Patient Position Sitting Flexion Active (degrees) 80 Flexion Passive (degrees) 90 Knee ROM Limitations Knee ROM Limitations Soft Tissue Tightness,Pain, Swelling PT-OP-M Strength Start: 08/10/19 09:54 Freq: Status: Active Protocol: Document 09/17/19 13:01 [facility] (Rec: 09/17/19 15:46 [facility] [id number]) Hip Strength Hip Manual Muscle Testing Left Flexion (L2) 4 Good Extension (S1) 4- Good- Abduction 4+ Good+ External Rotation 4 Good Internal Rotation 4 Good Right Flexion (L2) 3 Fair Extension (S1) 3+ Fair+ Abduction 4+ Good+ External Rotation 3+ Fair+ Internal Rotation 3+ Fair+ Comments pt lacking full ext on R Knee Strength Knee Manual Muscle Testing Left Flexion (S2) 5 Normal Extension (L3) 5 Normal Comments measured in sitting position Right Flexion (S2) 3+ Fair+ Extension (L3) 4 Good Comments measured in sidelying for gravity eliminated position Ankle/Foot Strength Ankle and Foot Manual Muscle Testing Left Dorsiflexion (L4) 4+ Good+ Plantarflexion (S1) 4 Good Right Dorsiflexion (L4) 4 Good Plantarflexion (S1) 4+ Good+ Comments PF tested in seated B PT-OP-Q Treatments Start: 08/10/19 09:54 Freq: Status: Active Protocol: Document 09/29/19 11:26 [facility] (Rec: 09/29/19 11:44 [facility] [id number]) Cardio Equipment Recumbent Bicycle Duration (Minutes) 6 Resistance 0 [address] Position all the way forward Other worked on rocking forward and back, no full resolution made Gym Equipment Shuttle Recovery Unilateral Squats Details small range Resistance 25# Shuttle Recovery Platform Stable Reps/Time 2x8 alternate Bilateral Squats Details for range Resistance 50# Shuttle Recovery Platform Stable Reps/Time 30 Therapeutic Exercises Supine Exercises knee flex Supine Exercise Name heel slide & AAROM Side right Reps/Minutes x10 knee extension Supine Exercise Name TKE over large bolster Reps/Minutes many reps Comments cued VMO facilitation, decrease pelvic lift and LLE recruitment Sitting Exercises knee flex Sitting Exercise Name seated edge of table Side right Resistance AROM and AAROM Reps/Minutes 2 x 10 reps Standing Exercises hip flex Standing Exercise Name with knee flexion Side right Equipment Used 6 step Comments placing foot on/off step sit<>stand Standing Exercise Name w/inc knee flex as tolerated Side bilateral Reps/Minutes 4 Comments cue increase knee flexion foot pos, slow pacing, forward seat, even wt dist Gait Training Gait Activity stiars Description stairs Device Used one rail and two rails Level of Assistance SBA and verbal cues Comments step-over step with two rails and step-to with one rail gait Comments pt to therapy with cane today, cues to use knee flexion during swing Manual Therapy Treatment Soft Tissue Mobilization scar tissue Body Location in knee flex Mobilization Type Rolling,Strumming 1 Body Location quadriceps Mobilization Type Myofascial Release, Oscillations,Rolling Intensity/Depth Moderate Body Position Supine Comments worked before and after active knee ROM PT-OP-R Modalities Start: 08/10/19 09:54 Freq: Status: Active Protocol: Document 09/29/19 11:26 [facility] (Rec: 09/29/19 11:44 [facility]LM [id number]) Electric Stimulation Electric Stimulation Interferential Current (IFC) Body Location right knee Duration (Minutes) 15 Patient Position Sidelying Combined With Heat/Cold Cold Pack Comments LE's on wedge PT-OP-T Assessment and Plan Start: 08/10/19 09:54 Freq: Status: Active Protocol: Document 09/29/19 11:26 [facility] (Rec: 09/29/19 11:44 [facility] [id number]) Physical Therapy Assessment Goals stairs Alf Goal (LTG) pt will be able to ascend/ descend stairs using reciprocal gait and use of railing on one side in order to improve pt functional mobility and independence around home 09/17-able to ascend 4 in step 1 rail and decend 4 in step with 2 rails LTG Duration 11/09/19 LEFS Cooker Sulfate Goal (LTG) Pt will improve LEFS score to a 60/80 in order to demonstrate improved ability and independence to carry out ADL's and functional movement LTG Duration 11/09/19 gait Short Term Goal (STG) pt will increase Tinetti score to 24/28 in order to demonstrate increased balance and gait and decreased risk category for falls STG Duration achieved Alf Goal (LTG) pt will be able to ambulate independently with SPC and minimal gait deviations in order to be able to return to walking her dog 09/17-able to walk with cane but not with dog LTG Duration 11/09/19 ROM Short Term Goal (STG) Pt will increase R active knee extension to lacking 10 degrees in order to improve pt ability to extend knee for increased stability in gait STG Duration achieved Cooker Sulfate Goal (LTG) Pt will be able to achieve 120 degrees of R knee flexion in order to return to riding a bie and be able to get into a sitting kyak 09/17-very slowly progressing since cleared to resume PT after DVT LTG Duration 11/09/19 strength Short Term Goal (STG) pt will be compliant and independent with HEP STG Duration achieved Alf Goal (LTG) Pt will increase R LE strength to at least 4+/5 for all motions in order to increase independence with ADL's 09/17-improving ADL independence & strength LTG Duration 11/09/19 Assessment Summary Assessment She continues to show increased knee ROM with treatment. Functional use of knee flexion is still guarded with pt using compensations. She demonstrates good knowledge of her HEP. Her Spouse is present and encourages her. Scar tissue improves with manual therapy during treatment. Physical Therapy Plan Frequency and Duration Frequency of Treatment 2x/Week Duration of Treatment 3 months Plan of Care Start Date 08/10/19 Plan of Care End Date 11/09/19 Therapeutic Interventions Therapeutic Interventions Aquatic Therapy,Balance Training,Coordination Training ,Gait Training,Home Exercise Program,Joint Mobilizations, Lymphedema Management,Manual Therapy,Neuromuscular Re- education,Patient/Caregiver Education,Self-Care/Home Management,Soft Tissue Mobilization,Taping, Therapeutic Activities, Therapeutic Exercises Modalities Cold Pack/Ice Massage,Electric Stimulation,Hot Packs, Infrared Therapy,Ultrasound Next Visit Focus/Plan Next Note Type Treatment Note Next Visit Plan Continue to push knee ROM into flexion s/p manipulation, encourage functional use of her flexion
--- NOTE | 2019-09-30 09:06 | PT.OTN ---
Current Diagnoses Unilateral primary osteoarthritis, right knee (09/30/19) Stiffness of right knee, not elsewhere classified (09/30/19) Difficulty in walking, not elsewhere classified (09/30/19) Weakness (09/30/19) Physical Therapy Treatment Note PT-OP-A Visit Information Start: 08/10/19 09:54 Freq: Status: Active Protocol: Document 09/30/19 09:06 DLM (Rec: 09/30/19 09:25 DLM [id number]) Out-Patient Physical Therapy Visit Information Visit Information Visit Type Treatment Note Visit Start Time 08:15 Visit Stop Time 09:15 Total Visit Minutes 60 Visit Number 15 Number of HORTICULTURAL SERVICES SUPERVISOR Visits 0 Evaluation Information Evaluation Date 08/10/19 Precautions Precautions s/p DVT and manipulation PT-OP-B Current Condition Start: 08/10/19 09:54 Freq: Status: Active Protocol: Document 08/10/19 10:30 MT (Rec: 08/10/19 14:03 MT [id number]) Current Condition History of Current Condition Onset Date 08/06/19 History of Current Condition pt had R TKA on 08/06/19 in [place] to address oasteoarthritis. Pt currently uses 2WW for ambulation. Pt has cane that she used prior to surgery due to her knee pain and feeling like her knee was giving way. She had a L TKA 5 years ago and recovered from that well, but she reports that it still gives her issues with stairs and she has not been able to fully regain her ROM. She used to lead with her right LE when going up stairs but now she leads with her left one. She has trouble picking things up from the ground. Pt has a walk-in shower with shower seat and pt has a gi tech. She has stairs in her home but does not need to use them in order to live in her home. Pt lives at home with her who is able to help her with her mobility and helping her through her exercises. Pt reports that she still struggles with moving her leg when getting into bed and requires a leg assist. Treatment Goals Patient/Caregiver Goals be able to use the stairs again, get back to riding the bicycle, be able to get into/ out of kyak, getting back to walking her dog (20 minutes) PT-OP-C Subjective Start: 08/10/19 09:54 Freq: Status: Active Protocol: Document 09/30/19 09:06 DLM (Rec: 09/30/19 09:25 DL [id number]) OP-PT Subjective Patient Comments Patient Comments Her knee feels a little better today Patient Reported Progress Improving PT-OP-E Functional Tests Start: 08/10/19 09:54 Freq: Status: Active Protocol: Document 09/17/19 13:01 LR (Rec: 09/17/19 15:46 LR [id number]) Functional Tests Tinetti Balance and Gait Assessment Balance Score 25 PT-OP-G Mobility & Gait Start: 08/10/19 09:54 Freq: Status: Active Protocol: Document 09/29/19 11:26 DLM (Rec: 09/29/19 11:47 DL [id number]) OP Mobility Evaluation Bed Mobility Rolling independent Supine to and from Sit independent Transfers Sit to Stand uses UE's, tends to kick right foot out before sitting, increased weight on left LE OP Gait Assessment Gait Gait Assistance Required: Independent Assistive Devices Assistive Device Straight Cane Gait Deviations General Gait Pattern Antalgic,Decreased Stride Length Factors Limiting Gait Function Factors Limiting Gait Function Decreased Activity Tolerance, Decreased Sensation,Limited Range of Motion,Pain PT-OP-J Posture/Palpation/Skin Start: 08/10/19 09:54 Freq: Status: Active Protocol: Document 08/10/19 10:30 MT (Rec: 08/10/19 14:03 MT [id number]) Skin Assessment Incisional Assessment Incision Appearance/Comments Pt has B compression stockings on, as recommedned by her surgeon. Incision on R LE is covered with bandage. There is increased edema in R LE vs L LE. Pt has marked bruising around incisional area that extends beyond badange boundaries. Pt also has bruising in R UE from IV placement. PT-OP-K Range of Motion Start: 08/10/19 09:54 Freq: Status: Active Protocol: Document 09/29/19 11:26 DLM (Rec: 09/29/19 11:44 DLM [id number]) Knee Goniometric Range of Motion Knee Right Patient Position Sitting Flexion Active (degrees) 80 Flexion Passive (degrees) 90 Knee ROM Limitations Knee ROM Limitations Soft Tissue Tightness,Pain, Swelling PT-OP-M Strength Start: 08/10/19 09:54 Freq: Status: Active Protocol: Document 09/17/19 13:01 [facility] (Rec: 09/17/19 15:46 [facility] [id number]) Hip Strength Hip Manual Muscle Testing Left Flexion (L2) 4 Good Extension (S1) 4- Good- Abduction 4+ Good+ External Rotation 4 Good Internal Rotation 4 Good Right Flexion (L2) 3 Fair Extension (S1) 3+ Fair+ Abduction 4+ Good+ External Rotation 3+ Fair+ Internal Rotation 3+ Fair+ Comments pt lacking full ext on R Knee Strength Knee Manual Muscle Testing Left Flexion (S2) 5 Normal Extension (L3) 5 Normal Comments measured in sitting position Right Flexion (S2) 3+ Fair+ Extension (L3) 4 Good Comments measured in sidelying for gravity eliminated position Ankle/Foot Strength Ankle and Foot Manual Muscle Testing Left Dorsiflexion (L4) 4+ Good+ Plantarflexion (S1) 4 Good Right Dorsiflexion (L4) 4 Good Plantarflexion (S1) 4+ Good+ Comments PF tested in seated B PT-OP-Q Treatments Start: 08/10/19 09:54 Freq: Status: Active Protocol: Document 09/30/19 09:06 DLM (Rec: 09/30/19 09:25 DL [id number]) Cardio Equipment Recumbent Bicycle Duration (Minutes) 6 Resistance 0 Other worked on rocking forward and back, no full resolution made Gym Equipment Shuttle Recovery Unilateral Squats Details full range Resistance 25# Shuttle Recovery Platform Stable Reps/Time 2x8 alternate Bilateral Squats Details full range Resistance 50# Shuttle Recovery Platform Stable Reps/Time 30 Therapeutic Exercises Sitting Exercises knee flex Sitting Exercise Name seated in chair Side right Resistance L2 exercise band Reps/Minutes 2 x 10 reps Standing Exercises Knee extension Standing Exercise Name terminal knee extension Side right Resistance L2 exercise band above knee Equipment Used standing with UE support Reps/Minutes 2 x 10 reps hip flex Standing Exercise Name with knee flexion Side right Equipment Used 6 step Comments placing foot on/off step Manual Therapy Treatment Soft Tissue Mobilization scar tissue Body Location in knee flex Mobilization Type Rolling,Strumming 1 Body Location quadriceps Mobilization Type Myofascial Release, Oscillations,Rolling Intensity/Depth Moderate Body Position Supine PT-OP-R Modalities Start: 08/10/19 09:54 Freq: Status: Active Protocol: Document 09/30/19 09:06 DLM (Rec: 09/30/19 09:25 DLM [id number]) Electric Stimulation Electric Stimulation Interferential Current (IFC) Body Location right knee Duration (Minutes) 10 Patient Position Supine Combined With Heat/Cold Cold Pack Comments LE's on wedge PT-OP-T Assessment and Plan Start: 08/10/19 09:54 Freq: Status: Active Protocol: Document 09/30/19 09:06 DLM (Rec: 09/30/19 09:25 DL [id number]) Physical Therapy Assessment Goals stairs Skilled Nursing Goal (LTG) pt will be able to ascend/ descend stairs using reciprocal gait and use of railing on one side in order to improve pt functional mobility and independence around home 09/17-able to ascend 4 in step 1 rail and decend 4 in step with 2 rails LTG Duration 11/09/19 LEFS Skilled Nursing Goal (LTG) Pt will improve LEFS score to a 60/80 in order to demonstrate improved ability and independence to carry out ADL's and functional movement LTG Duration 11/09/19 gait Short Term Goal (STG) pt will increase Tinetti score to 24/28 in order to demonstrate increased balance and gait and decreased risk category for falls STG Duration achieved Skilled Nursing Goal (LTG) pt will be able to ambulate independently with SPC and minimal gait deviations in order to be able to return to walking her dog 09/17-able to walk with cane but not with dog LTG Duration 11/09/19 ROM Short Term Goal (STG) Pt will increase R active knee extension to lacking 10 degrees in order to improve pt ability to extend knee for increased stability in gait STG Duration achieved [employer] Goal (LTG) Pt will be able to achieve 120 degrees of R knee flexion in order to return to riding a bie and be able to get into a sitting kyak 09/17-very slowly progressing since cleared to resume PT after DVT LTG Duration 11/09/19 strength Short Term Goal (STG) pt will be compliant and independent with HEP STG Duration achieved [employer] Goal (LTG) Pt will increase R LE strength to at least 4+/5 for all motions in order to increase independence with ADL's 09/17-improving ADL independence & strength LTG Duration 11/09/19 Progress Towards Goals Progress Towards Goals Progressing Toward Goals Assessment Summary Assessment Improved functional use right knee ROM this visit as seen with exercises. Small improvements seen in soft tissue tightness around knee during manual therapy. She continue to use her cane for gait. She states she only uses the fWW when getting up at night. Physical Therapy Plan Frequency and Duration Frequency of Treatment 2x/Week Duration of Treatment 3 months Plan of Care Start Date 08/10/19 Plan of Care End Date 11/09/19 Therapeutic Interventions Therapeutic Interventions Aquatic Therapy,Balance Training,Coordination Training ,Gait Training,Home Exercise Program,Joint Mobilizations, Lymphedema Management,Manual Therapy,Neuromuscular Re- education,Patient/Caregiver Education,Self-Care/Home Management,Soft Tissue Mobilization,Taping, Therapeutic Activities, Therapeutic Exercises Modalities Cold Pack/Ice Massage,Electric Stimulation,Hot Packs, Infrared Therapy,Ultrasound Next Visit Focus/Plan Next Note Type Treatment Note Next Visit Plan Continue to push knee ROM into flexion s/p manipulation, measure knee ROM again next visit
--- NOTE | 2019-10-01 10:30 | PT.OTN ---
Current Diagnoses Unilateral primary osteoarthritis, right knee (10/01/19) Stiffness of right knee, not elsewhere classified (10/01/19) Difficulty in walking, not elsewhere classified (10/01/19) Weakness (10/01/19) Physical Therapy Treatment Note PT-OP-A Visit Information Start: 08/10/19 09:54 Freq: Status: Active Protocol: Document 10/01/19 10:30 DLM (Rec: 10/01/19 11:52 DLM [id number]) Out-Patient Physical Therapy Visit Information Visit Information Visit Type Treatment Note Visit Start Time 10:30 Visit Stop Time 11:35 Visit Number 16 Number of SUPERVISOR SPRING UP Visits 0 Evaluation Information Evaluation Date 08/10/19 Precautions Precautions s/p DVT and manipulation PT-OP-B Current Condition Start: 08/10/19 09:54 Freq: Status: Active Protocol: Document 08/10/19 10:30 MT (Rec: 08/10/19 14:03 MT [id number]) Current Condition History of Current Condition Onset Date 08/06/19 History of Current Condition pt had R TKA on 08/06/19 in [place] to address osteoarthritis. Pt currently uses 2WW for ambulation. Pt has cane that she used prior to surgery due to her knee pain and feeling like her knee was giving way. She had a L TKA 5 years ago and recovered from that well, but she reports that it still gives her issues with stairs and she has not been able to fully regain her ROM. She used to lead with her right LE when going up stairs but now she leads with her left one. She has trouble picking things up from the ground. 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 She has stairs in her home but does not need to use them in order to live in her home. Pt lives at home with her who is able to help her with her mobility and helping her through her exercises. Pt reports that she still struggles with moving her leg when getting into bed and requires a leg assist. Treatment Goals Patient/Caregiver Goals be able to use the stairs again, get back to riding the bicycle, be able to get into/ out of kyak, getting back to walking her dog (20 minutes) PT-OP-C Subjective Start: 08/10/19 09:54 Freq: Status: Active Protocol: Document 10/01/19 10:30 DLM (Rec: 10/01/19 11:52 DLM [id number]) OP-PT Subjective Patient Comments Patient Comments She is doing massage on her knee 3 times a day for about 8 min each at home. Patient Reported Progress Same OP-PT Pain Assessment Location Right knee Intensity 2 Scale Used Numeric (1 - 10) Description Aching,Tightness PT-OP-E Functional Tests Start: 08/10/19 09:54 Freq: Status: Active Protocol: Document 09/17/19 13:01 LR (Rec: 09/17/19 15:46 [facility] [id number]) Functional Tests Tinetti Balance and Gait Assessment Balance Score 25 PT-OP-G Mobility & Gait Start: 08/10/19 09:54 Freq: Status: Active Protocol: Document 09/29/19 11:26 DLM (Rec: 09/29/19 11:47 DLM [id number]) OP Mobility Evaluation Bed Mobility Rolling independent Supine to and from Sit independent Transfers Sit to Stand uses UE's, tends to kick right foot out before sitting, increased weight on left LE OP Gait Assessment Gait Gait Assistance Required: Independent Assistive Devices Assistive Device Straight Cane Gait Deviations General Gait Pattern Antalgic,Decreased Stride Length Factors Limiting Gait Function Factors Limiting Gait Function Decreased Activity Tolerance, Decreased Sensation,Limited Range of Motion,Pain PT-OP-J Posture/Palpation/Skin Start: 08/10/19 09:54 Freq: Status: Active Protocol: Document 08/10/19 10:30 MT (Rec: 08/10/19 14:03 MT [id number]) Skin Assessment Incisional Assessment Incision Appearance/Comments 10/01/19 pt no longer wearing compression socks nor a wrap/dressing on right knee. Incision is fully closed. PT-OP-K Range of Motion Start: 08/10/19 09:54 Freq: Status: Active Protocol: Document 10/01/19 10:30 DLM (Rec: 10/01/19 11:52 DLM [id number]) Knee Goniometric Range of Motion Knee Left Patient Position Sitting Flexion Active (degrees) 105 Right Patient Position Sitting Flexion Active (degrees) 89 Flexion Passive (degrees) 92 Knee ROM Limitations Knee ROM Limitations Soft Tissue Tightness,Pain, Swelling PT-OP-M Strength Start: 08/10/19 09:54 Freq: Status: Active Protocol: Document 09/17/19 13:01 [facility] (Rec: 09/17/19 15:46 [facility] [id number]) Hip Strength Hip Manual Muscle Testing Left Flexion (L2) 4 Good Extension (S1) 4- Good- Abduction 4+ Good+ External Rotation 4 Good Internal Rotation 4 Good Right Flexion (L2) 3 Fair Extension (S1) 3+ Fair+ Abduction 4+ Good+ External Rotation 3+ Fair+ Internal Rotation 3+ Fair+ Comments pt lacking full ext on R Knee Strength Knee Manual Muscle Testing Left Flexion (S2) 5 Normal Extension (L3) 5 Normal Comments measured in sitting position Right Flexion (S2) 3+ Fair+ Extension (L3) 4 Good Comments measured in sidelying for gravity eliminated position Ankle/Foot Strength Ankle and Foot Manual Muscle Testing Left Dorsiflexion (L4) 4+ Good+ Plantarflexion (S1) 4 Good Right Dorsiflexion (L4) 4 Good Plantarflexion (S1) 4+ Good+ Comments PF tested in seated B PT-OP-Q Treatments Start: 08/10/19 09:54 Freq: Status: Active Protocol: Document 10/01/19 10:30 DLM (Rec: 10/01/19 11:52 DLM [id number]) Cardio Equipment Recumbent Bicycle Duration (Minutes) 6 Resistance 0 Other worked on rocking forward and back, no full resolution made Gym Equipment Shuttle Recovery Unilateral Squats Details full range Resistance 25# Shuttle Recovery Platform Stable Reps/Time 2x 10 reps alternate Bilateral Squats Details full range Resistance 50# Shuttle Recovery Platform Stable Reps/Time 20 reps Therapeutic Exercises Sitting Exercises LAQ Sitting Exercise Name seated on table Side right Reps/Minutes 10 reps knee flex Sitting Exercise Name seated on table Side right Resistance active and assisted Reps/Minutes 2 x 10 reps Standing Exercises hip flex Standing Exercise Name with knee flexion Side right Equipment Used 6 step Comments placing foot on/off step sit<>stand Standing Exercise Name w/inc knee flex as tolerated Side bilateral Reps/Minutes 10 reps Comments cue increase knee flexion, foot pos, slow pacing, forward seat, even wt distribution Gait Training Gait Activity gait Device Used straight cane Comments cuing to increase functional knee flexion during swing Manual Therapy Treatment Soft Tissue Mobilization scar tissue Body Location in knee flex Mobilization Type Rolling,Strumming 1 Body Location quadriceps Mobilization Type Myofascial Release, Oscillations,Rolling Intensity/Depth Moderate Body Position Supine PT-OP-R Modalities Start: 08/10/19 09:54 Freq: Status: Active Protocol: Document 10/01/19 10:30 DLM (Rec: 10/01/19 11:52 DLM [id number]) Electric Stimulation Electric Stimulation Interferential Current (IFC) Body Location right knee Duration (Minutes) 10 Patient Position Hooklying Combined With Heat/Cold Cold Pack Comments LE's on wedge PT-OP-T Assessment and Plan Start: 08/10/19 09:54 Freq: Status: Active Protocol: Document 10/01/19 10:30 DLM (Rec: 10/01/19 11:52 DLM [id number]) Physical Therapy Assessment Goals stairs User Support Analyst Goal (LTG) pt will be able to ascend/ descend stairs using reciprocal gait and use of railing on one side in order to improve pt functional mobility and independence around home 09/17-able to ascend 4 in step 1 rail and decend 4 in step with 2 rails LTG Duration 11/09/19 LEFS Usp Goal (LTG) Pt will improve LEFS score to a 60/80 in order to demonstrate improved ability and independence to carry out ADL's and functional movement LTG Duration 11/09/19 gait Short Term Goal (STG) pt will increase Tinetti score to 24/28 in order to demonstrate increased balance and gait and decreased risk category for falls STG Duration achieved User Support Analyst Goal (LTG) pt will be able to ambulate independently with SPC and minimal gait deviations in order to be able to return to walking her dog 09/17-able to walk with cane but not with dog LTG Duration 11/09/19 ROM Short Term Goal (STG) Pt will increase R active knee extension to lacking 10 degrees in order to improve pt ability to extend knee for increased stability in gait STG Duration achieved User Support Analyst Goal (LTG) Pt will be able to achieve 120 degrees of R knee flexion in order to return to riding a bie and be able to get into a sitting kyak 09/17-very slowly progressing since cleared to resume PT after DVT LTG Duration 11/09/19 strength Short Term Goal (STG) pt will be compliant and independent with HEP STG Duration achieved Usp Goal (LTG) Pt will increase R LE strength to at least 4+/5 for all motions in order to increase independence with ADL's 09/17-improving ADL independence & strength LTG Duration 11/09/19 Progress Towards Goals Progress Towards Goals Progressing Toward Goals Assessment Summary Assessment Her knee ROM continues to slowly improve this visit. She tolerated treatment well. More tightness in vastus lateralis today that improved with manual therapy but did not resolve. She continues to have difficulty using her functional knee flexion during gait but her pattern improves with cuing from therapist to lead swing phase with her knee instead of her foot. Physical Therapy Plan Frequency and Duration Frequency of Treatment 2x/Week Duration of Treatment 3 months Plan of Care Start Date 08/10/19 Plan of Care End Date 11/09/19 Therapeutic Interventions Therapeutic Interventions Aquatic Therapy,Balance Training,Coordination Training ,Gait Training,Home Exercise Program,Joint Mobilizations, Lymphedema Management,Manual Therapy,Neuromuscular Re- education,Patient/Caregiver Education,Self-Care/Home Management,Soft Tissue Mobilization,Taping, Therapeutic Activities, Therapeutic Exercises Modalities Cold Pack/Ice Massage,Electric Stimulation,Hot Packs, Infrared Therapy,Ultrasound Next Visit Focus/Plan Next Note Type Treatment Note Next Visit Plan Continue to push knee ROM into flexion s/p manuiplation and functional use of her knee flexion
--- NOTE | 2019-10-02 16:12 | PT.OTN ---
Current Diagnoses Unilateral primary osteoarthritis, right knee (10/02/19) Stiffness of right knee, not elsewhere classified (10/02/19) Difficulty in walking, not elsewhere classified (10/02/19) Weakness (10/02/19) Physical Therapy Treatment Note PT-OP-A Visit Information Start: 08/10/19 09:54 Freq: Status: Active Protocol: Document 10/02/19 12:44 EG (Rec: 10/02/19 13:03 EG [id number]) Out-Patient Physical Therapy Visit Information Visit Information Visit Type Treatment Note Visit Start Time 10:30 Visit Stop Time 11:15 Visit Number 17 Number of GRAIN PROCESSOR Visits 0 PT-OP-B Current Condition Start: 08/10/19 09:54 Freq: Status: Active Protocol: Document 08/10/19 10:30 MT (Rec: 08/10/19 14:03 MT [id number]) Current Condition History of Current Condition Onset Date 08/06/19 History of Current Condition pt had R TKA on 08/06/19 in [place] to address oasteoarthritis. Pt currently uses 2WW for ambulation. Pt has cane that she used prior to surgery due to her knee pain and feeling like her knee was giving way. She had a L TKA 5 years ago and recovered from that well, but she reports that it still gives her issues with stairs and she has not been able to fully regain her ROM. She used to lead with her right LE when going up stairs but now she leads with her left one. She has trouble picking things up from the ground. 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 She has stairs in her home but does not need to use them in order to live in her home. Pt lives at home with her who is able to help her with her mobility and helping her through her exercises. Pt reports that she still struggles with moving her leg when getting into bed and requires a leg assist. Treatment Goals Patient/Caregiver Goals be able to use the stairs again, get back to riding the bicycle, be able to get into/ out of kyak, getting back to walking her dog (20 minutes) PT-OP-C Subjective Start: 08/10/19 09:54 Freq: Status: Active Protocol: Document 10/02/19 12:44 EG (Rec: 10/02/19 13:03 EG [id number]) OP-PT Subjective Patient Comments Patient Comments Patient reports that she is doing good today. She reports a 3/10 pain and that her knee just feels tight. She mentioned she is thinking about getting a recumbant stationary bike at home Patient Reported Progress Improving PT-OP-E Functional Tests Start: 08/10/19 09:54 Freq: Status: Active Protocol: Document 09/17/19 13:01 [facility] (Rec: 09/17/19 15:46 LR [id number]) Functional Tests Tinetti Balance and Gait Assessment Balance Score 25 PT-OP-G Mobility & Gait Start: 08/10/19 09:54 Freq: Status: Active Protocol: Document 09/29/19 11:26 DLM (Rec: 09/29/19 11:47 DLM [id number]) OP Mobility Evaluation Bed Mobility Rolling independent Supine to and from Sit independent Transfers Sit to Stand uses UE's, tends to kick right foot out before sitting, increased weight on left LE OP Gait Assessment Gait Gait Assistance Required: Independent Assistive Devices Assistive Device Straight Cane Gait Deviations General Gait Pattern Antalgic,Decreased Stride Length Factors Limiting Gait Function Factors Limiting Gait Function Decreased Activity Tolerance, Decreased Sensation,Limited Range of Motion,Pain PT-OP-J Posture/Palpation/Skin Start: 08/10/19 09:54 Freq: Status: Active Protocol: Document 08/10/19 10:30 MT (Rec: 08/10/19 14:03 MT [id number]) Skin Assessment Incisional Assessment Incision Appearance/Comments Pt has B compression stockings on, as recommedned by her surgeon. Incision on R LE is covered with bandage. There is increased edema in R LE vs L LE. Pt has marked bruising around incisional area that extends beyond badange boundaries. Pt also has bruising in R UE from IV placement. PT-OP-K Range of Motion Start: 08/10/19 09:54 Freq: Status: Active Protocol: Document 10/01/19 10:30 DLM (Rec: 10/01/19 11:52 DLM [id number]) Knee Goniometric Range of Motion Knee Left Patient Position Sitting Flexion Active (degrees) 105 Right Patient Position Sitting Flexion Active (degrees) 89 Flexion Passive (degrees) 92 Knee ROM Limitations Knee ROM Limitations Soft Tissue Tightness,Pain, Swelling PT-OP-M Strength Start: 08/10/19 09:54 Freq: Status: Active Protocol: Document 09/17/19 13:01 [facility] (Rec: 09/17/19 15:46 [facility] [id number]) Hip Strength Hip Manual Muscle Testing Left Flexion (L2) 4 Good Extension (S1) 4- Good- Abduction 4+ Good+ External Rotation 4 Good Internal Rotation 4 Good Right Flexion (L2) 3 Fair Extension (S1) 3+ Fair+ Abduction 4+ Good+ External Rotation 3+ Fair+ Internal Rotation 3+ Fair+ Comments pt lacking full ext on R Knee Strength Knee Manual Muscle Testing Left Flexion (S2) 5 Normal Extension (L3) 5 Normal Comments measured in sitting position Right Flexion (S2) 3+ Fair+ Extension (L3) 4 Good Comments measured in sidelying for gravity eliminated position Ankle/Foot Strength Ankle and Foot Manual Muscle Testing Left Dorsiflexion (L4) 4+ Good+ Plantarflexion (S1) 4 Good Right Dorsiflexion (L4) 4 Good Plantarflexion (S1) 4+ Good+ Comments PF tested in seated B PT-OP-Q Treatments Start: 08/10/19 09:54 Freq: Status: Active Protocol: Document 10/02/19 12:44 EG (Rec: 10/02/19 13:03 EG [id number]) Cardio Equipment Recumbent Bicycle Duration (Minutes) 6 Resistance 0 Other worked on rocking forward and back, no full resolution made Gym Equipment Shuttle Recovery Unilateral Squats Details full range Resistance 25# Shuttle Recovery Platform Stable Reps/Time 20x prolonged hold at tolerable flexion Bilateral Squats Details full range Resistance 50# Shuttle Recovery Platform Stable Reps/Time 20 reps - prolonged hold at tolerable flexion Therapeutic Exercises Standing Exercises Balance Standing Exercise Name Feet together eyes closed, SLS Equipment Used foam pad under feet Reps/Minutes [address] Comments Glute stabilizing strength Therapeutic Activity Therapeutic Activity Sit to Stand Name Sit to Stand Reps/Minutes 10 x Comments Standard chair with no armrests. Emphasis equal weight through LE when standing and a slow sit down. Manual Therapy Treatment Soft Tissue Mobilization scar tissue Body Location in knee flex Mobilization Type Rolling,Strumming PT-OP-R Modalities Start: 08/10/19 09:54 Freq: Status: Active Protocol: Document 10/01/19 10:30 DLM (Rec: 10/01/19 11:52 DLM [id number]) Electric Stimulation Electric Stimulation Interferential Current (IFC) Body Location right knee Duration (Minutes) 10 Patient Position Hooklying Combined With Heat/Cold Cold Pack Comments LE's on wedge PT-OP-T Assessment and Plan Start: 08/10/19 09:54 Freq: Status: Active Protocol: Document 10/02/19 12:44 EG (Rec: 10/02/19 15:31 EG [email or web address]) Physical Therapy Assessment Assessment Summary Assessment Patient tolerated treatment well today. She is close to getting a full revolution on the recumbant bike but is still retricted with R knee flexion but should progress soon. Patient tends to favor the L leg with transfers sit to stand and should continue to work on equal weight bearing when moving in to squat position to even out load distribution between bilateral lower extremities. Patient should continue to work on knee flexion as well as soft tissue mobilization of the quadriceps and friction massage of the R scar. Patient is also limited in extension and should continue with knee extension emphasized exercises including prone knee extension with leg off the table. Physical Therapy Plan Next Visit Focus/Plan Next Note Type Treatment Note Next Visit Plan Continue working on functional activities such as stairs and transfers as well as balance to increase flexion and strength of R knee.
--- NOTE | 2019-10-05 19:05 | PT.OTN ---
Current Diagnoses Unilateral primary osteoarthritis, right knee (10/05/19) Stiffness of right knee, not elsewhere classified (10/05/19) Difficulty in walking, not elsewhere classified (10/05/19) Weakness (10/05/19) Physical Therapy Treatment Note PT-OP-A Visit Information Start: 08/10/19 09:54 Freq: Status: Active Protocol: Document 10/05/19 09:50 [facility] (Rec: 10/05/19 19:05 [facility] [id number]) Out-Patient Physical Therapy Visit Information Visit Information Visit Type Progress Note Visit Start Time 09:46 Visit Stop Time 10:41 Total Visit Minutes 55 Visit Number [address] BAILIFF OR SHERIFF Visits 0 PT-OP-B Current Condition Start: 08/10/19 09:54 Freq: Status: Active Protocol: Document 08/10/19 10:30 MT (Rec: 08/10/19 14:03 MT [id number]) Current Condition History of Current Condition Onset Date 08/06/19 History of Current Condition pt had R TKA on 08/06/19 in [place] to address oasteoarthritis. Pt currently uses 2WW for ambulation. Pt has cane that she used prior to surgery due to her knee pain and feeling like her knee was giving way. She had a L TKA 5 years ago and recovered from that well, but she reports that it still gives her issues with stairs and she has not been able to fully regain her ROM. She used to lead with her right LE when going up stairs but now she leads with her left one. She has trouble picking things up from the ground. 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 She has stairs in her home but does not need to use them in order to live in her home. Pt lives at home with her who is able to help her with her mobility and helping her through her exercises. Pt reports that she still struggles with moving her leg when getting into bed and requires a leg assist. Treatment Goals Patient/Caregiver Goals be able to use the stairs again, get back to riding the bicycle, be able to get into/ out of kyak, getting back to walking her dog (20 minutes) PT-OP-C Subjective Start: 08/10/19 09:54 Freq: Status: Active Protocol: Document 10/05/19 09:50 [facility] (Rec: 10/05/19 19:05 [facility] [id number]) OP-PT Subjective Patient Comments Patient Comments Pt reports she is getting a recumbant bike tomorrow PT-OP-E Functional Tests Start: 08/10/19 09:54 Freq: Status: Active Protocol: Document 09/17/19 13:01 [facility] (Rec: 09/17/19 15:46 [facility] [id number]) Functional Tests Tinetti Balance and Gait Assessment Balance Score 25 PT-OP-G Mobility & Gait Start: 08/10/19 09:54 Freq: Status: Active Protocol: Document 09/29/19 11:26 DLM (Rec: 09/29/19 11:47 DLM [id number]) OP Mobility Evaluation Bed Mobility Rolling independent Supine to and from Sit independent Transfers Sit to Stand uses UE's, tends to kick right foot out before sitting, increased weight on left LE OP Gait Assessment Gait Gait Assistance Required: Independent Assistive Devices Assistive Device Straight Cane Gait Deviations General Gait Pattern Antalgic,Decreased Stride Length Factors Limiting Gait Function Factors Limiting Gait Function Decreased Activity Tolerance, Decreased Sensation,Limited Range of Motion,Pain PT-OP-J Posture/Palpation/Skin Start: 08/10/19 09:54 Freq: Status: Active Protocol: Document 08/10/19 10:30 MT (Rec: 08/10/19 14:03 MT [id number]) Skin Assessment Incisional Assessment Incision Appearance/Comments Pt has B compression stockings on, as recommedned by her surgeon. Incision on R LE is covered with bandage. There is increased edema in R LE vs L LE. Pt has marked bruising around incisional area that extends beyond badange boundaries. Pt also has bruising in R UE from IV placement. PT-OP-K Range of Motion Start: 08/10/19 09:54 Freq: Status: Active Protocol: Document 10/05/19 09:50 [facility] (Rec: 10/05/19 19:05 [facility] [id number]) Knee Goniometric Range of Motion Knee Right Patient Position Supine Flexion Active (degrees) 82 Flexion Passive (degrees) 90 PT-OP-M Strength Start: 08/10/19 09:54 Freq: Status: Active Protocol: Document 09/17/19 13:01 [facility] (Rec: 09/17/19 15:46 [facility] [id number]) Hip Strength Hip Manual Muscle Testing Left Flexion (L2) 4 Good Extension (S1) 4- Good- Abduction 4+ Good+ External Rotation 4 Good Internal Rotation 4 Good Right Flexion (L2) 3 Fair Extension (S1) 3+ Fair+ Abduction 4+ Good+ External Rotation 3+ Fair+ Internal Rotation 3+ Fair+ Comments pt lacking full ext on R Knee Strength Knee Manual Muscle Testing Left Flexion (S2) 5 Normal Extension (L3) 5 Normal Comments measured in sitting position Right Flexion (S2) 3+ Fair+ Extension (L3) 4 Good Comments measured in sidelying for gravity eliminated position Ankle/Foot Strength Ankle and Foot Manual Muscle Testing Left Dorsiflexion (L4) 4+ Good+ Plantarflexion (S1) 4 Good Right Dorsiflexion (L4) 4 Good Plantarflexion (S1) 4+ Good+ Comments PF tested in seated B PT-OP-Q Treatments Start: 08/10/19 09:54 Freq: Status: Active Protocol: Document 10/05/19 09:50 [facility] (Rec: 10/05/19 19:05 [facility] [id number]) Cardio Equipment Recumbent Bicycle Duration (Minutes) 6 Resistance 0 Other worked on rocking forward and back, no full resolution made Gym Equipment Shuttle Recovery Unilateral Squats Details full range Resistance 37# Shuttle Recovery Platform Stable Reps/Time 20x prolonged hold at tolerable flexion Bilateral Squats Details full range Resistance 62# Shuttle Recovery Platform Stable Reps/Time 20 reps - prolonged hold at tolerable flexion Manual Therapy Treatment Soft Tissue Mobilization scar tissue Body Location in knee flex Mobilization Type Rolling,Strumming Comments plunger & rolling ITB Body Location R bwtn VL & ITB Mobilization Type Rolling Comments plunger & rolling Joint Mobilizations PF Joint R Direction sup, inf, med PT-OP-R Modalities Start: 08/10/19 09:54 Freq: Status: Active Protocol: Document 10/05/19 09:50 [facility] (Rec: 10/05/19 19:05 [facility] [id number]) Electric Stimulation Electric Stimulation Interferential Current (IFC) Body Location right knee Duration (Minutes) 10 Patient Position Hooklying Combined With Heat/Cold Cold Pack Comments LE's on wedge PT-OP-T Assessment and Plan Start: 08/10/19 09:54 Freq: Status: Active Protocol: Document 10/05/19 09:50 [facility] (Rec: 10/05/19 19:05 [facility] [id number]) Physical Therapy Assessment Goals stairs Custodial Goal (LTG) pt will be able to ascend/ descend stairs using reciprocal gait and use of railing on one side in order to improve pt functional mobility and independence around home 09/17-able to ascend 4 in step 1 rail and decend 4 in step with 2 rails 10/05- LTG Duration 11/09/19 LEFS Custodial Goal (LTG) Pt will improve LEFS score to a 60/80 in order to demonstrate improved ability and independence to carry out ADL's and functional movement 10/05- LTG Duration 11/09/19 gait Short Term Goal (STG) pt will increase Tinetti score to 24/28 in order to demonstrate increased balance and gait and decreased risk category for falls STG Duration achieved Custodial Goal (LTG) pt will be able to ambulate independently with SPC and minimal gait deviations in order to be able to return to walking her dog 09/17-able to walk with cane but not with dog 10/05-walking outside but not with dog yet, still deviations LTG Duration 11/09/19 ROM Short Term Goal (STG) Pt will increase R active knee extension to lacking 10 degrees in order to improve pt ability to extend knee for increased stability in gait STG Duration achieved Custodial Goal (LTG) Pt will be able to achieve 120 degrees of R knee flexion in order to return to riding a bie and be able to get into a sitting kyak 09/17-very slowly progressing since cleared to resume PT after DVT 10/05-improving since manipulation LTG Duration 11/09/19 strength Short Term Goal (STG) pt will be compliant and independent with HEP STG Duration achieved Draw Furnace Tender Goal (LTG) Pt will increase R LE strength to at least 4+/5 for all motions in order to increase independence with ADL's 09/17-improving ADL independence & strength LTG Duration 11/09/19 Assessment Summary Assessment Pt is gradually increasing ROM . In supine and seated she is able to get aobut 82-83 degress and able to achieve aobut 90 deg passively. She is working hard with her ROM but is still very limtied. She is improving with abilityt o do stairs but requires signfiicant use of rail for decent reciprocally and is sligthy unsteady. Physical Therapy Plan Frequency and Duration Frequency of Treatment 2x/Week Duration of Treatment 3 months Plan of Care Start Date 08/10/19 Plan of Care End Date 11/09/19 Next Visit Focus/Plan Next Note Type Treatment Note Next Visit Plan Continue working on functional activities such as stairs and transfers as well as balance to increase flexion and strength of R knee.
--- NOTE | 2019-10-08 12:22 | PT.OTN ---
Current Diagnoses Unilateral primary osteoarthritis, right knee (10/08/19) Stiffness of right knee, not elsewhere classified (10/08/19) Difficulty in walking, not elsewhere classified (10/08/19) Weakness (10/08/19) Physical Therapy Treatment Note PT-OP-A Visit Information Start: 08/10/19 09:54 Freq: Status: Active Protocol: Document 10/08/19 10:41 [facility] (Rec: 10/08/19 12:22 [facility] [id number]) Out-Patient Physical Therapy Visit Information Visit Information Visit Type Treatment Note Visit Start Time 10:33 Visit Stop Time 11:26 Total Visit Minutes 53 Visit Number 19 Number of BEACH EXPERT Visits 0 PT-OP-B Current Condition Start: 08/10/19 09:54 Freq: Status: Active Protocol: Document 08/10/19 10:30 MT (Rec: 08/10/19 14:03 MT [id number]) Current Condition History of Current Condition Onset Date 08/06/19 History of Current Condition pt had R TKA on 08/06/19 in [place] to address oasteoarthritis. Pt currently uses 2WW for ambulation. Pt has cane that she used prior to surgery due to her knee pain and feeling like her knee was giving way. She had a L TKA 5 years ago and recovered from that well, but she reports that it still gives her issues with stairs and she has not been able to fully regain her ROM. She used to lead with her right LE when going up stairs but now she leads with her left one. She has trouble picking things up from the ground. Pt has a walk-in shower with shower seat and pt has a lacquer coater. She has stairs in her home but does not need to use them in order to live in her home. Pt lives at home with her who is able to help her with her mobility and helping her through her exercises. Pt reports that she still struggles with moving her leg when getting into bed and requires a leg assist. Treatment Goals Patient/Caregiver Goals be able to use the stairs again, get back to riding the bicycle, be able to get into/ out of kyak, getting back to walking her dog (20 minutes) PT-OP-C Subjective Start: 08/10/19 09:54 Freq: Status: Active Protocol: Document 10/08/19 10:41 LR (Rec: 10/08/19 12:22 [facility] [id number]) OP-PT Subjective Patient Comments Patient Comments Pt got her bike & started using it Patient Reported Progress Improving PT-OP-E Functional Tests Start: 08/10/19 09:54 Freq: Status: Active Protocol: Document 09/17/19 13:01 [facility] (Rec: 09/17/19 15:46 [facility] [id number]) Functional Tests Tinetti Balance and Gait Assessment Balance Score 25 PT-OP-G Mobility & Gait Start: 08/10/19 09:54 Freq: Status: Active Protocol: Document 09/29/19 11:26 DLM (Rec: 09/29/19 11:47 DLM [id number]) OP Mobility Evaluation Bed Mobility Rolling independent Supine to and from Sit independent Transfers Sit to Stand uses UE's, tends to kick right foot out before sitting, increased weight on left LE OP Gait Assessment Gait Gait Assistance Required: Independent Assistive Devices Assistive Device Straight Cane Gait Deviations General Gait Pattern Antalgic,Decreased Stride Length Factors Limiting Gait Function Factors Limiting Gait Function Decreased Activity Tolerance, Decreased Sensation,Limited Range of Motion,Pain PT-OP-J Posture/Palpation/Skin Start: 08/10/19 09:54 Freq: Status: Active Protocol: Document 08/10/19 10:30 MT (Rec: 08/10/19 14:03 MT [id number]) Skin Assessment Incisional Assessment Incision Appearance/Comments Pt has B compression stockings on, as recommedned by her surgeon. Incision on R LE is covered with bandage. There is increased edema in R LE vs L LE. Pt has marked bruising around incisional area that extends beyond badange boundaries. Pt also has bruising in R UE from IV placement. PT-OP-K Range of Motion Start: 08/10/19 09:54 Freq: Status: Active Protocol: Document 10/05/19 09:50 [facility] (Rec: 10/05/19 19:05 [facility] [id number]) Knee Goniometric Range of Motion Knee Right Patient Position Supine Flexion Active (degrees) 82 Flexion Passive (degrees) 90 PT-OP-M Strength Start: 08/10/19 09:54 Freq: Status: Active Protocol: Document 09/17/19 13:01 LR (Rec: 09/17/19 15:46 [facility] [id number]) Hip Strength Hip Manual Muscle Testing Left Flexion (L2) 4 Good Extension (S1) 4- Good- Abduction 4+ Good+ External Rotation 4 Good Internal Rotation 4 Good Right Flexion (L2) 3 Fair Extension (S1) 3+ Fair+ Abduction 4+ Good+ External Rotation 3+ Fair+ Internal Rotation 3+ Fair+ Comments pt lacking full ext on R Knee Strength Knee Manual Muscle Testing Left Flexion (S2) 5 Normal Extension (L3) 5 Normal Comments measured in sitting position Right Flexion (S2) 3+ Fair+ Extension (L3) 4 Good Comments measured in sidelying for gravity eliminated position Ankle/Foot Strength Ankle and Foot Manual Muscle Testing Left Dorsiflexion (L4) 4+ Good+ Plantarflexion (S1) 4 Good Right Dorsiflexion (L4) 4 Good Plantarflexion (S1) 4+ Good+ Comments PF tested in seated B PT-OP-Q Treatments Start: 08/10/19 09:54 Freq: Status: Active Protocol: Document 10/08/19 10:41 [facility] (Rec: 10/08/19 12:22 [facility] [id number]) Cardio Equipment Recumbent Elliptical ([employer]) Duration (Minutes) 6 Resistance 1 Seat Position 0 Therapeutic Exercises Supine Exercises knee flex Supine Exercise Name on wall Side right Reps/Minutes long hold w/scooting down after stretched Therapeutic Activity Therapeutic Activity up/downf rom ground Name edu on options to get up/down Gait Training Gait Activity stiars Description 13 steps x2 reciprocally with 1 rail Comments with cane also one time Manual Therapy Treatment Soft Tissue Mobilization scar tissue Body Location in knee flex on wall Mobilization Type Rolling,Strumming Comments plunger & rolling 1 Body Location quads Mobilization Type Rolling,Strumming PT-OP-R Modalities Start: 08/10/19 09:54 Freq: Status: Active Protocol: Document 10/08/19 10:41 [facility] (Rec: 10/08/19 12:22 [facility] [id number]) Electric Stimulation Electric Stimulation Interferential Current (IFC) Body Location right knee Duration (Minutes) 10 Patient Position Hooklying Combined With Heat/Cold Cold Pack Comments LE's on wedge PT-OP-T Assessment and Plan Start: 08/10/19 09:54 Freq: Status: Active Protocol: Document 10/08/19 10:41 [facility] (Rec: 10/08/19 12:22 [facility] [id number]) Physical Therapy Assessment Goals stairs Repairer Sash And Door Goal (LTG) pt will be able to ascend/ descend stairs using reciprocal gait and use of railing on one side in order to improve pt functional mobility and independence around home 09/17-able to ascend 4 in step 1 rail and decend 4 in step with 2 rails 10/05- LTG Duration 11/09/19 LEFS Repairer Sash And Door Goal (LTG) Pt will improve LEFS score to a 60/80 in order to demonstrate improved ability and independence to carry out ADL's and functional movement 10/05- LTG Duration 11/09/19 gait Short Term Goal (STG) pt will increase Tinetti score to 24/28 in order to demonstrate increased balance and gait and decreased risk category for falls STG Duration achieved Intermediate Goal (LTG) pt will be able to ambulate independently with SPC and minimal gait deviations in order to be able to return to walking her dog 09/17-able to walk with cane but not with dog 10/05-walking outside but not with dog yet, still deviations LTG Duration 11/09/19 ROM Short Term Goal (STG) Pt will increase R active knee extension to lacking 10 degrees in order to improve pt ability to extend knee for increased stability in gait STG Duration achieved Repairer Sash And Door Goal (LTG) Pt will be able to achieve 120 degrees of R knee flexion in order to return to riding a bie and be able to get into a sitting kyak 09/17-very slowly progressing since cleared to resume PT after DVT 10/05-improving since manipulation LTG Duration 11/09/19 strength Short Term Goal (STG) pt will be compliant and independent with HEP STG Duration achieved Intermediate Goal (LTG) Pt will increase R LE strength to at least 4+/5 for all motions in order to increase independence with ADL's 09/17-improving ADL independence & strength LTG Duration 11/09/19 Assessment Summary Assessment Pt had about the same ROM as last session but was able to improve to 92 deg withw all exercise. She was able to do stairs reicprocallyw ith 1 rail safely and is encouraged to work on this at home. Physical Therapy Plan Frequency and Duration Frequency of Treatment 2x/Week Duration of Treatment 3 months Plan of Care Start Date 08/10/19 Plan of Care End Date 11/09/19 Next Visit Focus/Plan Next Note Type Treatment Note Next Visit Plan Continue working on functional activities such as stairs and transfers as well as balance to increase flexion and strength of R knee; up/downf romg round
--- NOTE | 2019-10-12 12:07 | PT.OTN ---
Current Diagnoses Unilateral primary osteoarthritis, right knee (10/12/19) Stiffness of right knee, not elsewhere classified (10/12/19) Difficulty in walking, not elsewhere classified (10/12/19) Weakness (10/12/19) Physical Therapy Treatment Note PT-OP-A Visit Information Start: 08/10/19 09:54 Freq: Status: Active Protocol: Document 10/12/19 09:51 [facility] (Rec: 10/12/19 12:07 [facility] [id number]) Out-Patient Physical Therapy Visit Information Visit Information Visit Type Treatment Note Visit Note 11/02 Visit Start Time 09:46 Visit Stop Time 10:40 Total Visit Minutes 54 Visit Number 20 Number of DRILLING ASSISTANT Visits 0 PT-OP-B Current Condition Start: 08/10/19 09:54 Freq: Status: Active Protocol: Document 08/10/19 10:30 MT (Rec: 08/10/19 14:03 MT [id number]) Current Condition History of Current Condition Onset Date 08/06/19 History of Current Condition pt had R TKA on 08/06/19 in [place] to address oasteoarthritis. Pt currently uses 2WW for ambulation. Pt has cane that she used prior to surgery due to her knee pain and feeling like her knee was giving way. She had a L TKA 5 years ago and recovered from that well, but she reports that it still gives her issues with stairs and she has not been able to fully regain her ROM. She used to lead with her right LE when going up stairs but now she leads with her left one. She has trouble picking things up from the ground. Pt has a walk-in shower with shower seat and pt has a hydrogenation operator. She has stairs in her home but does not need to use them in order to live in her home. Pt lives at home with her who is able to help her with her mobility and helping her through her exercises. Pt reports that she still struggles with moving her leg when getting into bed and requires a leg assist. Treatment Goals Patient/Caregiver Goals be able to use the stairs again, get back to riding the bicycle, be able to get into/ out of kyak, getting back to walking her dog (20 minutes) PT-OP-C Subjective Start: 08/10/19 09:54 Freq: Status: Active Protocol: Document 10/12/19 09:51 LR (Rec: 10/12/19 12:07 [facility] [id number]) OP-PT Subjective Patient Comments Patient Comments Pt reports compliance with exercises at home. PT-OP-E Functional Tests Start: 08/10/19 09:54 Freq: Status: Active Protocol: Document 09/17/19 13:01 [facility] (Rec: 09/17/19 15:46 [facility] [id number]) Functional Tests Tinetti Balance and Gait Assessment Balance Score 25 PT-OP-G Mobility & Gait Start: 08/10/19 09:54 Freq: Status: Active Protocol: Document 09/29/19 11:26 DLM (Rec: 09/29/19 11:47 DLM [id number]) OP Mobility Evaluation Bed Mobility Rolling independent Supine to and from Sit independent Transfers Sit to Stand uses UE's, tends to kick right foot out before sitting, increased weight on left LE OP Gait Assessment Gait Gait Assistance Required: Independent Assistive Devices Assistive Device Straight Cane Gait Deviations General Gait Pattern Antalgic,Decreased Stride Length Factors Limiting Gait Function Factors Limiting Gait Function Decreased Activity Tolerance, Decreased Sensation,Limited Range of Motion,Pain PT-OP-J Posture/Palpation/Skin Start: 08/10/19 09:54 Freq: Status: Active Protocol: Document 08/10/19 10:30 MT (Rec: 08/10/19 14:03 MT [id number]) Skin Assessment Incisional Assessment Incision Appearance/Comments Pt has B compression stockings on, as recommedned by her surgeon. Incision on R LE is covered with bandage. There is increased edema in R LE vs L LE. Pt has marked bruising around incisional area that extends beyond badange boundaries. Pt also has bruising in R UE from IV placement. PT-OP-K Range of Motion Start: 08/10/19 09:54 Freq: Status: Active Protocol: Document 10/05/19 09:50 [facility] (Rec: 10/05/19 19:05 [facility] [id number]) Knee Goniometric Range of Motion Knee Right Patient Position Supine Flexion Active (degrees) 82 Flexion Passive (degrees) 90 PT-OP-M Strength Start: 08/10/19 09:54 Freq: Status: Active Protocol: Document 09/17/19 13:01 LR (Rec: 09/17/19 15:46 [facility] [id number]) Hip Strength Hip Manual Muscle Testing Left Flexion (L2) 4 Good Extension (S1) 4- Good- Abduction 4+ Good+ External Rotation 4 Good Internal Rotation 4 Good Right Flexion (L2) 3 Fair Extension (S1) 3+ Fair+ Abduction 4+ Good+ External Rotation 3+ Fair+ Internal Rotation 3+ Fair+ Comments pt lacking full ext on R Knee Strength Knee Manual Muscle Testing Left Flexion (S2) 5 Normal Extension (L3) 5 Normal Comments measured in sitting position Right Flexion (S2) 3+ Fair+ Extension (L3) 4 Good Comments measured in sidelying for gravity eliminated position Ankle/Foot Strength Ankle and Foot Manual Muscle Testing Left Dorsiflexion (L4) 4+ Good+ Plantarflexion (S1) 4 Good Right Dorsiflexion (L4) 4 Good Plantarflexion (S1) 4+ Good+ Comments PF tested in seated B PT-OP-Q Treatments Start: 08/10/19 09:54 Freq: Status: Active Protocol: Document 10/12/19 09:51 [facility] (Rec: 10/12/19 12:07 [facility] [id number]) Cardio Equipment Recumbent Bicycle Duration (Minutes) 7 Resistance 0 Seat Position 2 Other worked on rocking forward and back, no full resolution made Gym Equipment Shuttle Recovery Unilateral Squats Details full range Resistance 50# Shuttle Recovery Platform Stable Reps/Time 20x prolonged hold at tolerable flexion Bilateral Squats Details full range Resistance 87# Shuttle Recovery Platform Stable Reps/Time 20 reps - prolonged hold at tolerable flexion Therapeutic Exercises Standing Exercises lunge Side bilateral Reps/Minutes 8 sit<>stand Reps/Minutes 5 Comments focus on even wt Manual Therapy Treatment Soft Tissue Mobilization scar tissue Body Location in knee flex Mobilization Type Rolling,Strumming Comments plunger & rolling 1 Body Location quads Mobilization Type Rolling,Strumming Joint Mobilizations TF Joint PA Direction R PF Joint R Direction sup, inf, med PT-OP-R Modalities Start: 08/10/19 09:54 Freq: Status: Active Protocol: Document 10/12/19 09:51 [facility] (Rec: 10/12/19 12:07 [facility] [id number]) Electric Stimulation Electric Stimulation Interferential Current (IFC) Body Location right knee Duration (Minutes) 10 Patient Position Hooklying Combined With Heat/Cold Cold Pack Comments LE's on wedge PT-OP-T Assessment and Plan Start: 08/10/19 09:54 Freq: Status: Active Protocol: Document 10/12/19 09:51 [facility] (Rec: 10/12/19 12:07 [facility] [id number]) Physical Therapy Assessment Goals stairs Intermediate Goal (LTG) pt will be able to ascend/ descend stairs using reciprocal gait and use of railing on one side in order to improve pt functional mobility and independence around home 09/17-able to ascend 4 in step 1 rail and decend 4 in step with 2 rails 10/05- LTG Duration 11/09/19 LEFS Supervisor Plastering Goal (LTG) Pt will improve LEFS score to a 60/80 in order to demonstrate improved ability and independence to carry out ADL's and functional movement 10/05- LTG Duration 11/09/19 gait Short Term Goal (STG) pt will increase Tinetti score to 24/28 in order to demonstrate increased balance and gait and decreased risk category for falls STG Duration achieved Supervisor Plastering Goal (LTG) pt will be able to ambulate independently with SPC and minimal gait deviations in order to be able to return to walking her dog 09/17-able to walk with cane but not with dog 10/05-walking outside but not with dog yet, still deviations LTG Duration 11/09/19 ROM Short Term Goal (STG) Pt will increase R active knee extension to lacking 10 degrees in order to improve pt ability to extend knee for increased stability in gait STG Duration achieved Intermediate Goal (LTG) Pt will be able to achieve 120 degrees of R knee flexion in order to return to riding a bie and be able to get into a sitting kyak 09/17-very slowly progressing since cleared to resume PT after DVT 10/05-improving since manipulation LTG Duration 11/09/19 strength Short Term Goal (STG) pt will be compliant and independent with HEP STG Duration achieved Supervisor Plastering Goal (LTG) Pt will increase R LE strength to at least 4+/5 for all motions in order to increase independence with ADL's 09/17-improving ADL independence & strength LTG Duration 11/09/19 Assessment Summary Assessment Pt started with 86 deg AAROM flex and 95 deg PROm and improved to AROM ot 90 deg flex after manual treatment. She is having greater ease with getting to about 75 deg Physical Therapy Plan Frequency and Duration Frequency of Treatment 2x/Week Duration of Treatment 3 months Plan of Care Start Date 08/10/19 Plan of Care End Date 11/09/19 Next Visit Focus/Plan Next Note Type Treatment Note Next Visit Plan HS strengthening
--- NOTE | 2019-10-14 14:49 | PT.OTN ---
Current Diagnoses Unilateral primary osteoarthritis, right knee (10/14/19) Stiffness of right knee, not elsewhere classified (10/14/19) Difficulty in walking, not elsewhere classified (10/14/19) Weakness (10/14/19) Physical Therapy Treatment Note PT-OP-A Visit Information Start: 08/10/19 09:54 Freq: Status: Active Protocol: Document 10/14/19 13:46 [facility] (Rec: 10/14/19 14:49 [facility] [id number]) Out-Patient Physical Therapy Visit Information Visit Information Visit Type Treatment Note Visit Note 12/03 Visit Start Time 13:43 Visit Stop Time 14:38 Total Visit Minutes 55 Visit Number 21 Number of CRYPTOZOOLOGIST Visits 0 PT-OP-B Current Condition Start: 08/10/19 09:54 Freq: Status: Active Protocol: Document 08/10/19 10:30 MT (Rec: 08/10/19 14:03 MT [id number]) Current Condition History of Current Condition Onset Date 08/06/19 History of Current Condition pt had R TKA on 08/06/19 in [place] to address oasteoarthritis. Pt currently uses 2WW for ambulation. Pt has cane that she used prior to surgery due to her knee pain and feeling like her knee was giving way. She had a L TKA 5 years ago and recovered from that well, but she reports that it still gives her issues with stairs and she has not been able to fully regain her ROM. She used to lead with her right LE when going up stairs but now she leads with her left one. She has trouble picking things up from the ground. Pt has a walk-in shower with shower seat and pt has a conditioning machine operator. She has stairs in her home but does not need to use them in order to live in her home. Pt lives at home with her who is able to help her with her mobility and helping her through her exercises. Pt reports that she still struggles with moving her leg when getting into bed and requires a leg assist. Treatment Goals Patient/Caregiver Goals be able to use the stairs again, get back to riding the bicycle, be able to get into/ out of kyak, getting back to walking her dog (20 minutes) PT-OP-C Subjective Start: 08/10/19 09:54 Freq: Status: Active Protocol: Document 10/14/19 13:46 [facility] (Rec: 10/14/19 14:49 [facility] [id number]) OP-PT Subjective Patient Comments Patient Comments Pt reports she is working hard at [employer]. PT-OP-E Functional Tests Start: 08/10/19 09:54 Freq: Status: Active Protocol: Document 09/17/19 13:01 [facility] (Rec: 09/17/19 15:46 [facility] [id number]) Functional Tests Tinetti Balance and Gait Assessment Balance Score 25 PT-OP-G Mobility & Gait Start: 08/10/19 09:54 Freq: Status: Active Protocol: Document 09/29/19 11:26 DLM (Rec: 09/29/19 11:47 [facility] [id number]) OP Mobility Evaluation Bed Mobility Rolling independent Supine to and from Sit independent Transfers Sit to Stand uses UE's, tends to kick right foot out before sitting, increased weight on left LE OP Gait Assessment Gait Gait Assistance Required: Independent Assistive Devices Assistive Device Straight Cane Gait Deviations General Gait Pattern Antalgic,Decreased Stride Length Factors Limiting Gait Function Factors Limiting Gait Function Decreased Activity Tolerance, Decreased Sensation,Limited Range of Motion,Pain PT-OP-J Posture/Palpation/Skin Start: 08/10/19 09:54 Freq: Status: Active Protocol: Document 08/10/19 10:30 MT (Rec: 08/10/19 14:03 MT [id number]) Skin Assessment Incisional Assessment Incision Appearance/Comments Pt has B compression stockings on, as recommedned by her surgeon. Incision on R LE is covered with bandage. There is increased edema in R LE vs L LE. Pt has marked bruising around incisional area that extends beyond badange boundaries. Pt also has bruising in R UE from IV placement. PT-OP-K Range of Motion Start: 08/10/19 09:54 Freq: Status: Active Protocol: Document 10/05/19 09:50 [facility] (Rec: 10/05/19 19:05 [facility] [id number]) Knee Goniometric Range of Motion Knee Right Patient Position Supine Flexion Active (degrees) 82 Flexion Passive (degrees) 90 PT-OP-M Strength Start: 08/10/19 09:54 Freq: Status: Active Protocol: Document 09/17/19 13:01 [facility] (Rec: 09/17/19 15:46 [facility] [id number]) Hip Strength Hip Manual Muscle Testing Left Flexion (L2) 4 Good Extension (S1) 4- Good- Abduction 4+ Good+ External Rotation 4 Good Internal Rotation 4 Good Right Flexion (L2) 3 Fair Extension (S1) 3+ Fair+ Abduction 4+ Good+ External Rotation 3+ Fair+ Internal Rotation 3+ Fair+ Comments pt lacking full ext on R Knee Strength Knee Manual Muscle Testing Left Flexion (S2) 5 Normal Extension (L3) 5 Normal Comments measured in sitting position Right Flexion (S2) 3+ Fair+ Extension (L3) 4 Good Comments measured in sidelying for gravity eliminated position Ankle/Foot Strength Ankle and Foot Manual Muscle Testing Left Dorsiflexion (L4) 4+ Good+ Plantarflexion (S1) 4 Good Right Dorsiflexion (L4) 4 Good Plantarflexion (S1) 4+ Good+ Comments PF tested in seated B PT-OP-Q Treatments Start: 08/10/19 09:54 Freq: Status: Active Protocol: Document 10/14/19 13:46 [facility] (Rec: 10/14/19 14:49 [facility] [id number]) Cardio Equipment Recumbent Bicycle Duration (Minutes) 7 Resistance 0 Seat Position 2 Other worked on rocking forward and back, no full resolution made Gym Equipment Cable Column (Body Solid) Leg Curl Details R Resistance 2,3 Reps/Time 15x2 Shuttle Recovery Bilateral Squats Details full range Resistance 100# Shuttle Recovery Platform Stable Reps/Time 20 reps - prolonged hold at tolerable flexion Therapeutic Exercises Sitting Exercises LAQ Side right Equipment Used L1 Reps/Minutes 15 knee flex Side right Equipment Used L1 Reps/Minutes 15 Manual Therapy Treatment Soft Tissue Mobilization scar tissue Body Location in knee flex on wall Mobilization Type Rolling,Strumming Comments dycem & rolling 1 Body Location quads Mobilization Type Rolling,Strumming Comments w/ knee in flex HS Body Location R Mobilization Type Rolling Intensity/Depth Moderate Joint Mobilizations tibfib Joint proximal Direction PA PT-OP-R Modalities Start: 08/10/19 09:54 Freq: Status: Active Protocol: Document 10/14/19 13:46 [facility] (Rec: 10/14/19 14:49 [facility] [id number]) Electric Stimulation Electric Stimulation Interferential Current (IFC) Body Location right knee Duration (Minutes) 10 Patient Position Hooklying Combined With Heat/Cold Cold Pack Comments LE's on wedge PT-OP-T Assessment and Plan Start: 08/10/19 09:54 Freq: Status: Active Protocol: Document 10/14/19 13:46 [facility] (Rec: 10/14/19 14:49 [facility] [id number]) Physical Therapy Assessment Goals stairs [employer] Machine Assembler Goal (LTG) pt will be able to ascend/ descend stairs using reciprocal gait and use of railing on one side in order to improve pt functional mobility and independence around home 09/17-able to ascend 4 in step 1 rail and decend 4 in step with 2 rails 10/05- LTG Duration 11/09/19 LEFS [employer] Machine Assembler Goal (LTG) Pt will improve LEFS score to a 60/80 in order to demonstrate improved ability and independence to carry out ADL's and functional movement 10/05- LTG Duration 11/09/19 gait Short Term Goal (STG) pt will increase Tinetti score to 24/28 in order to demonstrate increased balance and gait and decreased risk category for falls STG Duration achieved [employer] Machine Assembler Goal (LTG) pt will be able to ambulate independently with SPC and minimal gait deviations in order to be able to return to walking her dog 09/17-able to walk with cane but not with dog 10/05-walking outside but not with dog yet, still deviations LTG Duration 11/09/19 ROM Short Term Goal (STG) Pt will increase R active knee extension to lacking 10 degrees in order to improve pt ability to extend knee for increased stability in gait STG Duration achieved [employer] Machine Assembler Goal (LTG) Pt will be able to achieve 120 degrees of R knee flexion in order to return to riding a bie and be able to get into a sitting kyak 09/17-very slowly progressing since cleared to resume PT after DVT 10/05-improving since manipulation LTG Duration 11/09/19 strength Short Term Goal (STG) pt will be compliant and independent with HEP STG Duration achieved [employer] Machine Assembler Goal (LTG) Pt will increase R LE strength to at least 4+/5 for all motions in order to increase independence with ADL's 09/17-improving ADL independence & strength LTG Duration 11/09/19 Assessment Summary Assessment Pt started with 86 deg again today and improved with gradually working into ext today also. She cont to have quad and HS tightness. tolerated HS strengthening well Physical Therapy Plan Frequency and Duration Frequency of Treatment 2x/Week Duration of Treatment 3 months Plan of Care Start Date 08/10/19 Plan of Care End Date 11/09/19 Next Visit Focus/Plan Next Note Type Treatment Note Next Visit Plan quad strength with resistance
--- NOTE | 2019-10-19 11:26 | PT.OTN ---
Current Diagnoses Unilateral primary osteoarthritis, right knee (10/19/19) Stiffness of right knee, not elsewhere classified (10/19/19) Difficulty in walking, not elsewhere classified (10/19/19) Weakness (10/19/19) Physical Therapy Treatment Note PT-OP-A Visit Information Start: 08/10/19 09:54 Freq: Status: Active Protocol: Document 10/19/19 09:54 [facility] (Rec: 10/19/19 11:26 [facility] [id number]) Out-Patient Physical Therapy Visit Information Visit Information Visit Type Treatment Note Visit Note 01/02 Visit Start Time 09:48 Visit Stop Time 10:41 Total Visit Minutes 53 Visit Number 22 Number of PRODUCTION STAFF WORKER Visits 0 PT-OP-B Current Condition Start: 08/10/19 09:54 Freq: Status: Active Protocol: Document 08/10/19 10:30 MT (Rec: 08/10/19 14:03 MT [id number]) Current Condition History of Current Condition Onset Date 08/06/19 History of Current Condition pt had R TKA on 08/06/19 in [place] to address oasteoarthritis. Pt currently uses 2WW for ambulation. Pt has cane that she used prior to surgery due to her knee pain and feeling like her knee was giving way. She had a L TKA 5 years ago and recovered from that well, but she reports that it still gives her issues with stairs and she has not been able to fully regain her ROM. She used to lead with her right LE when going up stairs but now she leads with her left one. She has trouble picking things up from the ground. Pt has a walk-in shower with shower seat and pt has a guest service manager. She has stairs in her home but does not need to use them in order to live in her home. Pt lives at home with her who is able to help her with her mobility and helping her through her exercises. Pt reports that she still struggles with moving her leg when getting into bed and requires a leg assist. Treatment Goals Patient/Caregiver Goals be able to use the stairs again, get back to riding the bicycle, be able to get into/ out of kyak, getting back to walking her dog (20 minutes) PT-OP-C Subjective Start: 08/10/19 09:54 Freq: Status: Active Protocol: Document 10/19/19 09:54 LR (Rec: 10/19/19 11:26 LR [id number]) OP-PT Subjective Patient Comments Patient Comments Pt reports she feels like her range is getting better. Notes big toe has been bothering her when walking on R side Patient Reported Progress Improving PT-OP-E Functional Tests Start: 08/10/19 09:54 Freq: Status: Active Protocol: Document 09/17/19 13:01 LR (Rec: 09/17/19 15:46 LR [id number]) Functional Tests Tinetti Balance and Gait Assessment Balance Score 25 PT-OP-G Mobility & Gait Start: 08/10/19 09:54 Freq: Status: Active Protocol: Document 09/29/19 11:26 DLM (Rec: 09/29/19 11:47 DL [id number]) OP Mobility Evaluation Bed Mobility Rolling independent Supine to and from Sit independent Transfers Sit to Stand uses UE's, tends to kick right foot out before sitting, increased weight on left LE OP Gait Assessment Gait Gait Assistance Required: Independent Assistive Devices Assistive Device Straight Cane Gait Deviations General Gait Pattern Antalgic,Decreased Stride Length Factors Limiting Gait Function Factors Limiting Gait Function Decreased Activity Tolerance, Decreased Sensation,Limited Range of Motion,Pain PT-OP-J Posture/Palpation/Skin Start: 08/10/19 09:54 Freq: Status: Active Protocol: Document 08/10/19 10:30 MT (Rec: 08/10/19 14:03 MT [id number]) Skin Assessment Incisional Assessment Incision Appearance/Comments Pt has B compression stockings on, as recommedned by her surgeon. Incision on R LE is covered with bandage. There is increased edema in R LE vs L LE. Pt has marked bruising around incisional area that extends beyond badange boundaries. Pt also has bruising in R UE from IV placement. PT-OP-K Range of Motion Start: 08/10/19 09:54 Freq: Status: Active Protocol: Document 10/05/19 09:50 LR (Rec: 10/05/19 19:05 [facility] [id number]) Knee Goniometric Range of Motion Knee Right Patient Position Supine Flexion Active (degrees) 82 Flexion Passive (degrees) 90 PT-OP-M Strength Start: 08/10/19 09:54 Freq: Status: Active Protocol: Document 09/17/19 13:01 [facility] (Rec: 09/17/19 15:46 [facility] [id number]) Hip Strength Hip Manual Muscle Testing Left Flexion (L2) 4 Good Extension (S1) 4- Good- Abduction 4+ Good+ External Rotation 4 Good Internal Rotation 4 Good Right Flexion (L2) 3 Fair Extension (S1) 3+ Fair+ Abduction 4+ Good+ External Rotation 3+ Fair+ Internal Rotation 3+ Fair+ Comments pt lacking full ext on R Knee Strength Knee Manual Muscle Testing Left Flexion (S2) 5 Normal Extension (L3) 5 Normal Comments measured in sitting position Right Flexion (S2) 3+ Fair+ Extension (L3) 4 Good Comments measured in sidelying for gravity eliminated position Ankle/Foot Strength Ankle and Foot Manual Muscle Testing Left Dorsiflexion (L4) 4+ Good+ Plantarflexion (S1) 4 Good Right Dorsiflexion (L4) 4 Good Plantarflexion (S1) 4+ Good+ Comments PF tested in seated B PT-OP-Q Treatments Start: 08/10/19 09:54 Freq: Status: Active Protocol: Document 10/19/19 09:54 [facility] (Rec: 10/19/19 11:26 [facility] [id number]) Cardio Equipment Recumbent Bicycle Duration (Minutes) 7 Resistance 0 Seat Position 2 Other worked on rocking forward and back, no full resolution made Gym Equipment Shuttle Recovery Unilateral Squats Details full range Resistance 62# Shuttle Recovery Platform Stable Reps/Time 20x prolonged hold at tolerable flexion Bilateral Squats Details full range Resistance 112# Shuttle Recovery Platform Stable Reps/Time 20 reps - prolonged hold at tolerable flexion Therapeutic Exercises Sitting Exercises LAQ Side right Equipment Used L2 Reps/Minutes 20 knee flex Side right Equipment Used L2 Reps/Minutes 20 Standing Exercises lunge Side bilateral Reps/Minutes 10 sit<>stand Reps/Minutes 5 Comments focus on even wt &instructed on using shorter chair at home Gait Training Gait Activity gait Comments wt shifts progressed to push off focus to resisted with dowel for gait. Manual Therapy Treatment Soft Tissue Mobilization scar tissue Body Location in knee flex on wall Mobilization Type Rolling,Strumming Comments rolling PT-OP-R Modalities Start: 08/10/19 09:54 Freq: Status: Active Protocol: Document 10/19/19 09:54 [facility] (Rec: 10/19/19 11:26 [facility] [id number]) Electric Stimulation Electric Stimulation Interferential Current (IFC) Body Location right knee Duration (Minutes) 10 Patient Position Hooklying Combined With Heat/Cold Cold Pack Comments LE's on wedge PT-OP-T Assessment and Plan Start: 08/10/19 09:54 Freq: Status: Active Protocol: Document 10/19/19 09:54 [facility] (Rec: 10/19/19 11:26 [facility] [id number]) Physical Therapy Assessment Goals stairs Polishing Wheel Setter Goal (LTG) pt will be able to ascend/ descend stairs using reciprocal gait and use of railing on one side in order to improve pt functional mobility and independence around home 09/17-able to ascend 4 in step 1 rail and decend 4 in step with 2 rails 10/05- LTG Duration 11/09/19 LEFS Retirement Goal (LTG) Pt will improve LEFS score to a 60/80 in order to demonstrate improved ability and independence to carry out ADL's and functional movement 10/05- LTG Duration 11/09/19 gait Short Term Goal (STG) pt will increase Tinetti score to 24/28 in order to demonstrate increased balance and gait and decreased risk category for falls STG Duration achieved Retirement Goal (LTG) pt will be able to ambulate independently with SPC and minimal gait deviations in order to be able to return to walking her dog 09/17-able to walk with cane but not with dog 10/05-walking outside but not with dog yet, still deviations LTG Duration 11/09/19 ROM Short Term Goal (STG) Pt will increase R active knee extension to lacking 10 degrees in order to improve pt ability to extend knee for increased stability in gait STG Duration achieved Retirement Goal (LTG) Pt will be able to achieve 120 degrees of R knee flexion in order to return to riding a bie and be able to get into a sitting kyak 09/17-very slowly progressing since cleared to resume PT after DVT 10/05-improving since manipulation LTG Duration 11/09/19 strength Short Term Goal (STG) pt will be compliant and independent with HEP STG Duration achieved Polishing Wheel Setter Goal (LTG) Pt will increase R LE strength to at least 4+/5 for all motions in order to increase independence with ADL's 09/17-improving ADL independence & strength LTG Duration 11/09/19 Assessment Summary Assessment Pt had 16-91 deg AROM at start of session. She is improving with ability to go through her range comfortably. She required cueing for all exercises today. Physical Therapy Plan Frequency and Duration Frequency of Treatment 2x/Week Duration of Treatment 3 months Plan of Care Start Date 08/10/19 Plan of Care End Date 11/09/19 Next Visit Focus/Plan Next Note Type Treatment Note Next Visit Plan quad strength with resistance
--- NOTE | 2019-10-22 16:26 | PT.OTN ---
Current Diagnoses Unilateral primary osteoarthritis, right knee (10/22/19) Stiffness of right knee, not elsewhere classified (10/22/19) Difficulty in walking, not elsewhere classified (10/22/19) Weakness (10/22/19) Physical Therapy Treatment Note PT-OP-A Visit Information Start: 08/10/19 09:54 Freq: Status: Active Protocol: Document 10/22/19 09:08 [facility] (Rec: 10/22/19 16:26 [facility] [id number]) Out-Patient Physical Therapy Visit Information Visit Information Visit Type Treatment Note Visit Start Time 09:03 Visit Stop Time 09:55 Total Visit Minutes 52 Visit Number 23 Number of ACCOUNT MANAGER RELIEF Visits 0 PT-OP-B Current Condition Start: 08/10/19 09:54 Freq: Status: Active Protocol: Document 08/10/19 10:30 MT (Rec: 08/10/19 14:03 MT [id number]) Current Condition History of Current Condition Onset Date 08/06/19 History of Current Condition pt had R TKA on 08/06/19 in [place] to address oasteoarthritis. Pt currently uses 2WW for ambulation. Pt has cane that she used prior to surgery due to her knee pain and feeling like her knee was giving way. She had a L TKA 5 years ago and recovered from that well, but she reports that it still gives her issues with stairs and she has not been able to fully regain her ROM. She used to lead with her right LE when going up stairs but now she leads with her left one. She has trouble picking things up from the ground. 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 She has stairs in her home but does not need to use them in order to live in her home. Pt lives at home with her who is able to help her with her mobility and helping her through her exercises. Pt reports that she still struggles with moving her leg when getting into bed and requires a leg assist. Treatment Goals Patient/Caregiver Goals be able to use the stairs again, get back to riding the bicycle, be able to get into/ out of kyak, getting back to walking her dog (20 minutes) PT-OP-C Subjective Start: 08/10/19 09:54 Freq: Status: Active Protocol: Document 10/22/19 09:08 LR (Rec: 10/22/19 16:26 [facility] [id number]) OP-PT Subjective Patient Comments Patient Comments Pt reports sleeping better past 2 nights. Pt reports overall feeling looser. PT-OP-E Functional Tests Start: 08/10/19 09:54 Freq: Status: Active Protocol: Document 09/17/19 13:01 [facility] (Rec: 09/17/19 15:46 [facility] [id number]) Functional Tests Tinetti Balance and Gait Assessment Balance Score 25 PT-OP-G Mobility & Gait Start: 08/10/19 09:54 Freq: Status: Active Protocol: Document 09/29/19 11:26 DLM (Rec: 09/29/19 11:47 DLM [id number]) OP Mobility Evaluation Bed Mobility Rolling independent Supine to and from Sit independent Transfers Sit to Stand uses UE's, tends to kick right foot out before sitting, increased weight on left LE OP Gait Assessment Gait Gait Assistance Required: Independent Assistive Devices Assistive Device Straight Cane Gait Deviations General Gait Pattern Antalgic,Decreased Stride Length Factors Limiting Gait Function Factors Limiting Gait Function Decreased Activity Tolerance, Decreased Sensation,Limited Range of Motion,Pain PT-OP-J Posture/Palpation/Skin Start: 08/10/19 09:54 Freq: Status: Active Protocol: Document 08/10/19 10:30 MT (Rec: 08/10/19 14:03 MT [id number]) Skin Assessment Incisional Assessment Incision Appearance/Comments Pt has B compression stockings on, as recommedned by her surgeon. Incision on R LE is covered with bandage. There is increased edema in R LE vs L LE. Pt has marked bruising around incisional area that extends beyond badange boundaries. Pt also has bruising in R UE from IV placement. PT-OP-K Range of Motion Start: 08/10/19 09:54 Freq: Status: Active Protocol: Document 10/05/19 09:50 [facility] (Rec: 10/05/19 19:05 [facility] [id number]) Knee Goniometric Range of Motion Knee Right Patient Position Supine Flexion Active (degrees) 82 Flexion Passive (degrees) 90 PT-OP-M Strength Start: 08/10/19 09:54 Freq: Status: Active Protocol: Document 09/17/19 13:01 [facility] (Rec: 09/17/19 15:46 [facility] [id number]) Hip Strength Hip Manual Muscle Testing Left Flexion (L2) 4 Good Extension (S1) 4- Good- Abduction 4+ Good+ External Rotation 4 Good Internal Rotation 4 Good Right Flexion (L2) 3 Fair Extension (S1) 3+ Fair+ Abduction 4+ Good+ External Rotation 3+ Fair+ Internal Rotation 3+ Fair+ Comments pt lacking full ext on R Knee Strength Knee Manual Muscle Testing Left Flexion (S2) 5 Normal Extension (L3) 5 Normal Comments measured in sitting position Right Flexion (S2) 3+ Fair+ Extension (L3) 4 Good Comments measured in sidelying for gravity eliminated position Ankle/Foot Strength Ankle and Foot Manual Muscle Testing Left Dorsiflexion (L4) 4+ Good+ Plantarflexion (S1) 4 Good Right Dorsiflexion (L4) 4 Good Plantarflexion (S1) 4+ Good+ Comments PF tested in seated B PT-OP-Q Treatments Start: 08/10/19 09:54 Freq: Status: Active Protocol: Document 10/22/19 09:08 [facility] (Rec: 10/22/19 16:26 [facility] [id number]) Cardio Equipment Recumbent Bicycle Duration (Minutes) 7 Resistance 0 Seat Position 2 Other worked on rocking forward and back, no full resolution made Therapeutic Exercises Standing Exercises sidestep Side bilateral Equipment Used lvl1 Reps/Minutes 20ftx2 Gait Training Gait Activity stiars Comments 1. reciprocally up/down 4 in steps x1 2. up/down 4 ins tep with focus on control & form x15 in mirror gait Comments 1.wt shifts in mirror 2. sls Manual Therapy Treatment Soft Tissue Mobilization scar tissue Body Location in knee flex on wall Mobilization Type Rolling,Strumming Comments rolling & plunger Joint Mobilizations tibfib Joint proximal Direction PA TF Joint PA Direction R PF Joint R Direction sup, inf, med PT-OP-R Modalities Start: 08/10/19 09:54 Freq: Status: Active Protocol: Document 10/22/19 09:08 [facility] (Rec: 10/22/19 16:26 [facility] [id number]) Electric Stimulation Electric Stimulation Interferential Current (IFC) Body Location right knee Duration (Minutes) 10 Patient Position Hooklying Combined With Heat/Cold Cold Pack Comments LE's on wedge PT-OP-T Assessment and Plan Start: 08/10/19 09:54 Freq: Status: Active Protocol: Document 10/22/19 09:08 [facility] (Rec: 10/22/19 16:26 [facility] [id number]) Physical Therapy Assessment Goals stairs Branch Account Executive Goal (LTG) pt will be able to ascend/ descend stairs using reciprocal gait and use of railing on one side in order to improve pt functional mobility and independence around home 09/17-able to ascend 4 in step 1 rail and decend 4 in step with 2 rails 10/05- LTG Duration 11/09/19 LEFS Usp Goal (LTG) Pt will improve LEFS score to a 60/80 in order to demonstrate improved ability and independence to carry out ADL's and functional movement 10/05- LTG Duration 11/09/19 gait Short Term Goal (STG) pt will increase Tinetti score to 24/28 in order to demonstrate increased balance and gait and decreased risk category for falls STG Duration achieved Usp Goal (LTG) pt will be able to ambulate independently with SPC and minimal gait deviations in order to be able to return to walking her dog 09/17-able to walk with cane but not with dog 10/05-walking outside but not with dog yet, still deviations LTG Duration 11/09/19 ROM Short Term Goal (STG) Pt will increase R active knee extension to lacking 10 degrees in order to improve pt ability to extend knee for increased stability in gait STG Duration achieved Usp Goal (LTG) Pt will be able to achieve 120 degrees of R knee flexion in order to return to riding a bie and be able to get into a sitting kyak 09/17-very slowly progressing since cleared to resume PT after DVT 10/05-improving since manipulation LTG Duration 11/09/19 strength Short Term Goal (STG) pt will be compliant and independent with HEP STG Duration achieved Branch Account Executive Goal (LTG) Pt will increase R LE strength to at least 4+/5 for all motions in order to increase independence with ADL's 09/17-improving ADL independence & strength LTG Duration 11/09/19 Assessment Summary Assessment Pt started 16-84 and after manual improved to 93. She did better with 4 in step and was able to do without rail after cueing & reps. Difficulty with sidestepping exercise Physical Therapy Plan Frequency and Duration Frequency of Treatment 5x/Week Duration of Treatment 3 months Plan of Care Start Date 09/24/19 Plan of Care End Date 11/19/19 Next Visit Focus/Plan Next Note Type Treatment Note Next Visit Plan quad strength with resistance
--- NOTE | 2019-10-26 10:55 | PT.OTN ---
Current Diagnoses Unilateral primary osteoarthritis, right knee (10/26/19) Stiffness of right knee, not elsewhere classified (10/26/19) Difficulty in walking, not elsewhere classified (10/26/19) Weakness (10/26/19) Physical Therapy Treatment Note PT-OP-A Visit Information Start: 08/10/19 09:54 Freq: Status: Active Protocol: Document 10/26/19 09:51 [facility] (Rec: 10/26/19 10:55 [facility] [id number]) Out-Patient Physical Therapy Visit Information Visit Information Visit Type Treatment Note Visit Note 03/04 Visit Start Time 09:49 Visit Stop Time 10:40 Total Visit Minutes 51 Visit Number 24 Number of PARTRIDGE FARMER Visits 0 PT-OP-B Current Condition Start: 08/10/19 09:54 Freq: Status: Active Protocol: Document 08/10/19 10:30 MT (Rec: 08/10/19 14:03 MT [id number]) Current Condition History of Current Condition Onset Date 08/06/19 History of Current Condition pt had R TKA on 08/06/19 in [place] to address oasteoarthritis. Pt currently uses 2WW for ambulation. Pt has cane that she used prior to surgery due to her knee pain and feeling like her knee was giving way. She had a L TKA 5 years ago and recovered from that well, but she reports that it still gives her issues with stairs and she has not been able to fully regain her ROM. She used to lead with her right LE when going up stairs but now she leads with her left one. She has trouble picking things up from the ground. Pt has a walk-in shower with shower seat and pt has a pattern room attendant. She has stairs in her home but does not need to use them in order to live in her home. Pt lives at home with her who is able to help her with her mobility and helping her through her exercises. Pt reports that she still struggles with moving her leg when getting into bed and requires a leg assist. Treatment Goals Patient/Caregiver Goals be able to use the stairs again, get back to riding the bicycle, be able to get into/ out of kyak, getting back to walking her dog (20 minutes) PT-OP-C Subjective Start: 08/10/19 09:54 Freq: Status: Active Protocol: Document 10/26/19 09:51 LR (Rec: 10/26/19 10:55 [facility] [id number]) OP-PT Subjective Patient Comments Patient Comments Pt reports she lightened up on exercises d/t having a couple days when she had a lot of pain with WB. Pt just did the bike PT-OP-E Functional Tests Start: 08/10/19 09:54 Freq: Status: Active Protocol: Document 09/17/19 13:01 LR (Rec: 09/17/19 15:46 [facility] [id number]) Functional Tests Tinetti Balance and Gait Assessment Balance Score 25 PT-OP-G Mobility & Gait Start: 08/10/19 09:54 Freq: Status: Active Protocol: Document 09/29/19 11:26 DLM (Rec: 09/29/19 11:47 DLM [id number]) OP Mobility Evaluation Bed Mobility Rolling independent Supine to and from Sit independent Transfers Sit to Stand uses UE's, tends to kick right foot out before sitting, increased weight on left LE OP Gait Assessment Gait Gait Assistance Required: Independent Assistive Devices Assistive Device Straight Cane Gait Deviations General Gait Pattern Antalgic,Decreased Stride Length Factors Limiting Gait Function Factors Limiting Gait Function Decreased Activity Tolerance, Decreased Sensation,Limited Range of Motion,Pain PT-OP-J Posture/Palpation/Skin Start: 08/10/19 09:54 Freq: Status: Active Protocol: Document 08/10/19 10:30 MT (Rec: 08/10/19 14:03 MT [id number]) Skin Assessment Incisional Assessment Incision Appearance/Comments Pt has B compression stockings on, as recommedned by her surgeon. Incision on R LE is covered with bandage. There is increased edema in R LE vs L LE. Pt has marked bruising around incisional area that extends beyond badange boundaries. Pt also has bruising in R UE from IV placement. PT-OP-K Range of Motion Start: 08/10/19 09:54 Freq: Status: Active Protocol: Document 10/05/19 09:50 LR (Rec: 10/05/19 19:05 [facility] [id number]) Knee Goniometric Range of Motion Knee Right Patient Position Supine Flexion Active (degrees) 82 Flexion Passive (degrees) 90 PT-OP-M Strength Start: 08/10/19 09:54 Freq: Status: Active Protocol: Document 09/17/19 13:01 [facility] (Rec: 09/17/19 15:46 [facility] [id number]) Hip Strength Hip Manual Muscle Testing Left Flexion (L2) 4 Good Extension (S1) 4- Good- Abduction 4+ Good+ External Rotation 4 Good Internal Rotation 4 Good Right Flexion (L2) 3 Fair Extension (S1) 3+ Fair+ Abduction 4+ Good+ External Rotation 3+ Fair+ Internal Rotation 3+ Fair+ Comments pt lacking full ext on R Knee Strength Knee Manual Muscle Testing Left Flexion (S2) 5 Normal Extension (L3) 5 Normal Comments measured in sitting position Right Flexion (S2) 3+ Fair+ Extension (L3) 4 Good Comments measured in sidelying for gravity eliminated position Ankle/Foot Strength Ankle and Foot Manual Muscle Testing Left Dorsiflexion (L4) 4+ Good+ Plantarflexion (S1) 4 Good Right Dorsiflexion (L4) 4 Good Plantarflexion (S1) 4+ Good+ Comments PF tested in seated B PT-OP-Q Treatments Start: 08/10/19 09:54 Freq: Status: Active Protocol: Document 10/26/19 09:51 [facility] (Rec: 10/26/19 10:55 [facility] [id number]) Gym Equipment Shuttle Recovery Unilateral Squats Details full range Resistance 62# Shuttle Recovery Platform Stable Reps/Time 30x prolonged hold at tolerable flexion Bilateral Squats Details full range Resistance 112# Shuttle Recovery Platform Stable Reps/Time 30 reps - prolonged hold at tolerable flexion Sport Cord green Exercise Details up 5 in step Cord/Resistance green Reps/Duration 15 Comments in mirror Therapeutic Exercises Standing Exercises knee flex Side left Reps/Minutes 20 Gait Training Gait Activity stiars Comments 1. reciprocally up/down 6 in steps x3 2. up/down 5 ins tep with focus on control & form x15 in mirror 3. up/down 8 ins tep with focus on control & form w/ railx5 in mirror Manual Therapy Treatment Soft Tissue Mobilization scar tissue Body Location w/knee flex/ext Mobilization Type Rolling,Strumming Comments dycem Joint Mobilizations PF Joint R Direction sup, inf, med PT-OP-R Modalities Start: 08/10/19 09:54 Freq: Status: Active Protocol: Document 10/26/19 09:51 [facility] (Rec: 10/26/19 10:55 [facility] [id number]) Electric Stimulation Electric Stimulation Interferential Current (IFC) Body Location right knee Duration (Minutes) 10 Patient Position Hooklying Combined With Heat/Cold Cold Pack Comments LE's on wedge PT-OP-T Assessment and Plan Start: 08/10/19 09:54 Freq: Status: Active Protocol: Document 10/26/19 09:51 [facility] (Rec: 10/26/19 10:55 [facility] [id number]) Physical Therapy Assessment Goals stairs Chcf Goal (LTG) pt will be able to ascend/ descend stairs using reciprocal gait and use of railing on one side in order to improve pt functional mobility and independence around home 09/17-able to ascend 4 in step 1 rail and decend 4 in step with 2 rails 10/05- LTG Duration 11/09/19 LEFS Chcf Goal (LTG) Pt will improve LEFS score to a 60/80 in order to demonstrate improved ability and independence to carry out ADL's and functional movement 10/05- LTG Duration 11/09/19 gait Short Term Goal (STG) pt will increase Tinetti score to 24/28 in order to demonstrate increased balance and gait and decreased risk category for falls STG Duration achieved Chcf Goal (LTG) pt will be able to ambulate independently with SPC and minimal gait deviations in order to be able to return to walking her dog 09/17-able to walk with cane but not with dog 10/05-walking outside but not with dog yet, still deviations LTG Duration 11/09/19 ROM Short Term Goal (STG) Pt will increase R active knee extension to lacking 10 degrees in order to improve pt ability to extend knee for increased stability in gait STG Duration achieved Chcf Goal (LTG) Pt will be able to achieve 120 degrees of R knee flexion in order to return to riding a bie and be able to get into a sitting kyak 09/17-very slowly progressing since cleared to resume PT after DVT 10/05-improving since manipulation LTG Duration 11/09/19 strength Short Term Goal (STG) pt will be compliant and independent with HEP STG Duration achieved Chcf Goal (LTG) Pt will increase R LE strength to at least 4+/5 for all motions in order to increase independence with ADL's 09/17-improving ADL independence & strength LTG Duration 11/09/19 Assessment Summary Assessment 12-90 after exercises prior to manual. She improved with step up and was able to do 8 ins tep up well and resisted step up but has difficulty with ROM for step down from 8 in. Physical Therapy Plan Frequency and Duration Frequency of Treatment 5x/Week Duration of Treatment 3 months Plan of Care Start Date 09/24/19 Plan of Care End Date 11/19/19 Next Visit Focus/Plan Next Note Type Treatment Note Next Visit Plan cont to work on 8 in step up and step down, try 6 in controlled step down
--- NOTE | 2019-11-02 10:58 | PT.OTN ---
Current Diagnoses Unilateral primary osteoarthritis, right knee (11/02/19) Stiffness of right knee, not elsewhere classified (11/02/19) Difficulty in walking, not elsewhere classified (11/02/19) Weakness (11/02/19) Physical Therapy Treatment Note PT-OP-A Visit Information Start: 08/10/19 09:54 Freq: Status: Active Protocol: Document 11/02/19 09:19 [facility] (Rec: 11/02/19 10:58 [facility] [id number]) Out-Patient Physical Therapy Visit Information Visit Information Visit Type Treatment Note Visit Note 04/04 Visit Start Time 09:48 Visit Stop Time 11:31 Total Visit Minutes 53 Visit Number 25 Number of ORACLE ENDECA CONSULTANT Visits 0 PT-OP-B Current Condition Start: 08/10/19 09:54 Freq: Status: Active Protocol: Document 08/10/19 10:30 MT (Rec: 08/10/19 14:03 MT [id number]) Current Condition History of Current Condition Onset Date 08/06/19 History of Current Condition pt had R TKA on 08/06/19 in [place] to address oasteoarthritis. Pt currently uses 2WW for ambulation. Pt has cane that she used prior to surgery due to her knee pain and feeling like her knee was giving way. She had a L TKA 5 years ago and recovered from that well, but she reports that it still gives her issues with stairs and she has not been able to fully regain her ROM. She used to lead with her right LE when going up stairs but now she leads with her left one. She has trouble picking things up from the ground. Pt has a walk-in shower with shower seat and pt has a scaffolding helper. She has stairs in her home but does not need to use them in order to live in her home. Pt lives at home with her who is able to help her with her mobility and helping her through her exercises. Pt reports that she still struggles with moving her leg when getting into bed and requires a leg assist. Treatment Goals Patient/Caregiver Goals be able to use the stairs again, get back to riding the bicycle, be able to get into/ out of kyak, getting back to walking her dog (20 minutes) PT-OP-C Subjective Start: 08/10/19 09:54 Freq: Status: Active Protocol: Document 11/02/19 09:19 LR (Rec: 11/02/19 10:58 [facility] [id number]) OP-PT Subjective Patient Comments Patient Comments Pt reports stairs are still diffciult. SHe has been walking more and riding the recumbant stepper. PT-OP-E Functional Tests Start: 08/10/19 09:54 Freq: Status: Active Protocol: Document 09/17/19 13:01 LR (Rec: 09/17/19 15:46 [facility] [id number]) Functional Tests Tinetti Balance and Gait Assessment Balance Score 25 PT-OP-G Mobility & Gait Start: 08/10/19 09:54 Freq: Status: Active Protocol: Document 09/29/19 11:26 DLM (Rec: 09/29/19 11:47 DLM [id number]) OP Mobility Evaluation Bed Mobility Rolling independent Supine to and from Sit independent Transfers Sit to Stand uses UE's, tends to kick right foot out before sitting, increased weight on left LE OP Gait Assessment Gait Gait Assistance Required: Independent Assistive Devices Assistive Device Straight Cane Gait Deviations General Gait Pattern Antalgic,Decreased Stride Length Factors Limiting Gait Function Factors Limiting Gait Function Decreased Activity Tolerance, Decreased Sensation,Limited Range of Motion,Pain PT-OP-J Posture/Palpation/Skin Start: 08/10/19 09:54 Freq: Status: Active Protocol: Document 08/10/19 10:30 MT (Rec: 08/10/19 14:03 MT [id number]) Skin Assessment Incisional Assessment Incision Appearance/Comments Pt has B compression stockings on, as recommedned by her surgeon. Incision on R LE is covered with bandage. There is increased edema in R LE vs L LE. Pt has marked bruising around incisional area that extends beyond badange boundaries. Pt also has bruising in R UE from IV placement. PT-OP-K Range of Motion Start: 08/10/19 09:54 Freq: Status: Active Protocol: Document 10/05/19 09:50 LR (Rec: 10/05/19 19:05 [facility] [id number]) Knee Goniometric Range of Motion Knee Right Patient Position Supine Flexion Active (degrees) 82 Flexion Passive (degrees) 90 PT-OP-M Strength Start: 08/10/19 09:54 Freq: Status: Active Protocol: Document 09/17/19 13:01 [facility] (Rec: 09/17/19 15:46 [facility] [id number]) Hip Strength Hip Manual Muscle Testing Left Flexion (L2) 4 Good Extension (S1) 4- Good- Abduction 4+ Good+ External Rotation 4 Good Internal Rotation 4 Good Right Flexion (L2) 3 Fair Extension (S1) 3+ Fair+ Abduction 4+ Good+ External Rotation 3+ Fair+ Internal Rotation 3+ Fair+ Comments pt lacking full ext on R Knee Strength Knee Manual Muscle Testing Left Flexion (S2) 5 Normal Extension (L3) 5 Normal Comments measured in sitting position Right Flexion (S2) 3+ Fair+ Extension (L3) 4 Good Comments measured in sidelying for gravity eliminated position Ankle/Foot Strength Ankle and Foot Manual Muscle Testing Left Dorsiflexion (L4) 4+ Good+ Plantarflexion (S1) 4 Good Right Dorsiflexion (L4) 4 Good Plantarflexion (S1) 4+ Good+ Comments PF tested in seated B PT-OP-Q Treatments Start: 08/10/19 09:54 Freq: Status: Active Protocol: Document 11/02/19 09:19 [facility] (Rec: 11/02/19 10:58 [facility] [id number]) Gym Equipment Shuttle Recovery Unilateral Squats Details full range Resistance 62# Shuttle Recovery Platform Stable Reps/Time 30x prolonged hold at tolerable flexion Bilateral Squats Details full range Resistance 112# Shuttle Recovery Platform Stable Reps/Time 30 reps - prolonged hold at tolerable flexion Therapeutic Exercises Standing Exercises step Standing Exercise Name single leg R mini squat off step with rail Side right Reps/Minutes 10 stretch Standing Exercise Name quad stretch on step Side right Reps/Minutes 30sec x2 Gait Training Gait Activity stiars Comments 1. up/down 6-8 in steps x5 ea gait Comments 1. working on no fwd lean 2. SLS working on no lat lean or fwd lean Manual Therapy Treatment Soft Tissue Mobilization 1 Body Location quad Lat Mobilization Type Rolling,Sustained Pressure Intensity/Depth Moderate Body Position Prone Comments w/c/r quad stertch PT-OP-R Modalities Start: 08/10/19 09:54 Freq: Status: Active Protocol: Document 11/02/19 09:19 [facility] (Rec: 11/02/19 10:58 [facility] [id number]) Electric Stimulation Electric Stimulation Interferential Current (IFC) Body Location right knee Duration (Minutes) 10 Patient Position Hooklying Combined With Heat/Cold Cold Pack Comments LE's on wedge PT-OP-T Assessment and Plan Start: 08/10/19 09:54 Freq: Status: Active Protocol: Document 11/02/19 09:19 [facility] (Rec: 11/02/19 10:58 [facility] [id number]) Physical Therapy Assessment Goals stairs Party Planner Goal (LTG) pt will be able to ascend/ descend stairs using reciprocal gait and use of railing on one side in order to improve pt functional mobility and independence around home 09/17-able to ascend 4 in step 1 rail and decend 4 in step with 2 rails 10/05- LTG Duration 11/09/19 LEFS Party Planner Goal (LTG) Pt will improve LEFS score to a 60/80 in order to demonstrate improved ability and independence to carry out ADL's and functional movement 10/05- LTG Duration 11/09/19 gait Short Term Goal (STG) pt will increase Tinetti score to 24/28 in order to demonstrate increased balance and gait and decreased risk category for falls STG Duration achieved Prison Goal (LTG) pt will be able to ambulate independently with SPC and minimal gait deviations in order to be able to return to walking her dog 09/17-able to walk with cane but not with dog 10/05-walking outside but not with dog yet, still deviations LTG Duration 11/09/19 ROM Short Term Goal (STG) Pt will increase R active knee extension to lacking 10 degrees in order to improve pt ability to extend knee for increased stability in gait STG Duration achieved Party Planner Goal (LTG) Pt will be able to achieve 120 degrees of R knee flexion in order to return to riding a bie and be able to get into a sitting kyak 09/17-very slowly progressing since cleared to resume PT after DVT 10/05-improving since manipulation LTG Duration 11/09/19 strength Short Term Goal (STG) pt will be compliant and independent with HEP STG Duration achieved Prison Goal (LTG) Pt will increase R LE strength to at least 4+/5 for all motions in order to increase independence with ADL's 09/17-improving ADL independence & strength LTG Duration 11/09/19 Assessment Summary Assessment Pt is improvingw ith abilityt o do daily tasks but is noting most limit with overall fatigue with activity and decsending stairs is still very difficult. Pt has difficulty with SLS and is unable to fully accept wt without R lat shear of pelvis. Physical Therapy Plan Frequency and Duration Frequency of Treatment 5x/Week Duration of Treatment 3 months Plan of Care Start Date 09/24/19 Plan of Care End Date 11/19/19 Next Visit Focus/Plan Next Note Type Treatment Note Next Visit Plan Cont to work on single leg balance, try some dobule leg balance on uneven surfaces, try PNF for post depression
--- NOTE | 2019-11-05 18:02 | PT.OTN ---
Current Diagnoses Unilateral primary osteoarthritis, right knee (11/05/19) Stiffness of right knee, not elsewhere classified (11/05/19) Difficulty in walking, not elsewhere classified (11/05/19) Weakness (11/05/19) Physical Therapy Treatment Note PT-OP-A Visit Information Start: 08/10/19 09:54 Freq: Status: Active Protocol: Document 11/05/19 14:09 [facility] (Rec: 11/05/19 18:01 [facility] [id number]) Out-Patient Physical Therapy Visit Information Visit Information Visit Type Treatment Note Visit Note 05/05 Visit Start Time 13:48 Visit Stop Time 14:40 Total Visit Minutes 52 Visit Number 26 Number of CHAIR CAR ATTENDANT Visits 0 PT-OP-B Current Condition Start: 08/10/19 09:54 Freq: Status: Active Protocol: Document 08/10/19 10:30 MT (Rec: 08/10/19 14:03 MT [id number]) Current Condition History of Current Condition Onset Date 08/06/19 History of Current Condition pt had R TKA on 08/06/19 in [place] to address oasteoarthritis. Pt currently uses 2WW for ambulation. Pt has cane that she used prior to surgery due to her knee pain and feeling like her knee was giving way. She had a L TKA 5 years ago and recovered from that well, but she reports that it still gives her issues with stairs and she has not been able to fully regain her ROM. She used to lead with her right LE when going up stairs but now she leads with her left one. She has trouble picking things up from the ground. Pt has a walk-in shower with shower seat and pt has a teamsite developer. She has stairs in her home but does not need to use them in order to live in her home. Pt lives at home with her who is able to help her with her mobility and helping her through her exercises. Pt reports that she still struggles with moving her leg when getting into bed and requires a leg assist. Treatment Goals Patient/Caregiver Goals be able to use the stairs again, get back to riding the bicycle, be able to get into/ out of kyak, getting back to walking her dog (20 minutes) PT-OP-C Subjective Start: 08/10/19 09:54 Freq: Status: Active Protocol: Document 11/05/19 14:09 LR (Rec: 11/05/19 18:01 [facility] [id number]) OP-PT Subjective Patient Comments Patient Comments Pt reports feeling like knee is looser PT-OP-E Functional Tests Start: 08/10/19 09:54 Freq: Status: Active Protocol: Document 09/17/19 13:01 [facility] (Rec: 09/17/19 15:46 [facility] [id number]) Functional Tests Tinetti Balance and Gait Assessment Balance Score 25 PT-OP-G Mobility & Gait Start: 08/10/19 09:54 Freq: Status: Active Protocol: Document 09/29/19 11:26 DLM (Rec: 09/29/19 11:47 [facility] [id number]) OP Mobility Evaluation Bed Mobility Rolling independent Supine to and from Sit independent Transfers Sit to Stand uses UE's, tends to kick right foot out before sitting, increased weight on left LE OP Gait Assessment Gait Gait Assistance Required: Independent Assistive Devices Assistive Device Straight Cane Gait Deviations General Gait Pattern Antalgic,Decreased Stride Length Factors Limiting Gait Function Factors Limiting Gait Function Decreased Activity Tolerance, Decreased Sensation,Limited Range of Motion,Pain PT-OP-J Posture/Palpation/Skin Start: 08/10/19 09:54 Freq: Status: Active Protocol: Document 08/10/19 10:30 MT (Rec: 08/10/19 14:03 MT [id number]) Skin Assessment Incisional Assessment Incision Appearance/Comments Pt has B compression stockings on, as recommedned by her surgeon. Incision on R LE is covered with bandage. There is increased edema in R LE vs L LE. Pt has marked bruising around incisional area that extends beyond badange boundaries. Pt also has bruising in R UE from IV placement. PT-OP-K Range of Motion Start: 08/10/19 09:54 Freq: Status: Active Protocol: Document 10/05/19 09:50 [facility] (Rec: 10/05/19 19:05 [facility] [id number]) Knee Goniometric Range of Motion Knee Right Patient Position Supine Flexion Active (degrees) 82 Flexion Passive (degrees) 90 PT-OP-M Strength Start: 08/10/19 09:54 Freq: Status: Active Protocol: Document 09/17/19 13:01 LR (Rec: 09/17/19 15:46 [facility] [id number]) Hip Strength Hip Manual Muscle Testing Left Flexion (L2) 4 Good Extension (S1) 4- Good- Abduction 4+ Good+ External Rotation 4 Good Internal Rotation 4 Good Right Flexion (L2) 3 Fair Extension (S1) 3+ Fair+ Abduction 4+ Good+ External Rotation 3+ Fair+ Internal Rotation 3+ Fair+ Comments pt lacking full ext on R Knee Strength Knee Manual Muscle Testing Left Flexion (S2) 5 Normal Extension (L3) 5 Normal Comments measured in sitting position Right Flexion (S2) 3+ Fair+ Extension (L3) 4 Good Comments measured in sidelying for gravity eliminated position Ankle/Foot Strength Ankle and Foot Manual Muscle Testing Left Dorsiflexion (L4) 4+ Good+ Plantarflexion (S1) 4 Good Right Dorsiflexion (L4) 4 Good Plantarflexion (S1) 4+ Good+ Comments PF tested in seated B PT-OP-Q Treatments Start: 08/10/19 09:54 Freq: Status: Active Protocol: Document 11/05/19 14:09 [facility] (Rec: 11/05/19 18:01 [facility] [id number]) Gait Training Gait Activity gait Comments 1. working on push off and propulsion 2. wt shift sto wt accpetance B Manual Therapy Treatment Soft Tissue Mobilization 1 Body Location quad Lat Mobilization Type Rolling,Sustained Pressure Intensity/Depth Moderate Comments w/c/r quad stertch in gerda test position Joint Mobilizations PF Joint R Direction sup, inf, med PT-OP-R Modalities Start: 08/10/19 09:54 Freq: Status: Active Protocol: Document 11/05/19 14:09 [facility] (Rec: 11/05/19 18:01 [facility] [id number]) Electric Stimulation Electric Stimulation Interferential Current (IFC) Body Location right knee Duration (Minutes) 10 Patient Position Hooklying Combined With Heat/Cold Cold Pack Comments LE's on wedge PT-OP-T Assessment and Plan Start: 08/10/19 09:54 Freq: Status: Active Protocol: Document 11/05/19 14:09 [facility] (Rec: 11/05/19 18:01 [facility] [id number]) Physical Therapy Assessment Goals stairs Detention Goal (LTG) pt will be able to ascend/ descend stairs using reciprocal gait and use of railing on one side in order to improve pt functional mobility and independence around home 09/17-able to ascend 4 in step 1 rail and decend 4 in step with 2 rails 10/05- LTG Duration 11/09/19 LEFS Millwright Apprentice Goal (LTG) Pt will improve LEFS score to a 60/80 in order to demonstrate improved ability and independence to carry out ADL's and functional movement 10/05- LTG Duration 11/09/19 gait Short Term Goal (STG) pt will increase Tinetti score to 24/28 in order to demonstrate increased balance and gait and decreased risk category for falls STG Duration achieved Mill[employer] Apprentice Goal (LTG) pt will be able to ambulate independently with SPC and minimal gait deviations in order to be able to return to walking her dog 09/17-able to walk with cane but not with dog 10/05-walking outside but not with dog yet, still deviations LTG Duration 11/09/19 ROM Short Term Goal (STG) Pt will increase R active knee extension to lacking 10 degrees in order to improve pt ability to extend knee for increased stability in gait STG Duration achieved Mill[employer] Apprentice Goal (LTG) Pt will be able to achieve 120 degrees of R knee flexion in order to return to riding a bie and be able to get into a sitting kyak 09/17-very slowly progressing since cleared to resume PT after DVT 10/05-improving since manipulation LTG Duration 11/09/19 strength Short Term Goal (STG) pt will be compliant and independent with HEP STG Duration achieved Detention Goal (LTG) Pt will increase R LE strength to at least 4+/5 for all motions in order to increase independence with ADL's 09/17-improving ADL independence & strength LTG Duration 11/09/19 Assessment Summary Assessment 11- prior to manual treatment today. She imrpoved sginficaintly with her gait todayw ithout AD with cueing with improved fluidity and improved push off. Physical Therapy Plan Frequency and Duration Frequency of Treatment 5x/Week Duration of Treatment 3 months Plan of Care Start Date 09/24/19 Plan of Care End Date 11/19/19 Next Visit Focus/Plan Next Note Type Discharge Summary Next Visit Plan review HEP, edu how to assist with cueingw ith gait. re-assess goals
--- NOTE | 2019-11-17 10:03 | PT.OPDS ---
Current Diagnoses Unilateral primary osteoarthritis, right knee (11/05/19) Stiffness of right knee, not elsewhere classified (11/05/19) Difficulty in walking, not elsewhere classified (11/05/19) Weakness (11/05/19) Visit Care Team Role Provider Type Carly Kong DO Family Provider Physician Primary Care Provider Specialty: Family Practice Address: [address] [place] [address], [address], [address] Email: [email or web address] Martha Gordon PA-C Attending Provider Non-Staff Specialty: Medical Address: [address] [place] [address], [phone] Email: Visit Number Visit Number 26 Discharge Summary PT-OP-B Current Condition Start: 08/10/19 09:54 Freq: Status: Active Protocol: Document 08/10/19 10:30 MT (Rec: 08/10/19 14:03 MT [id number]) Current Condition History of Current Condition Onset Date 08/06/19 History of Current Condition pt had R TKA on 08/06/19 in [place] to address oasteoarthritis. Pt currently uses 2WW for ambulation. Pt has cane that she used prior to surgery due to her knee pain and feeling like her knee was giving way. She had a L TKA 5 years ago and recovered from that well, but she reports that it still gives her issues with stairs and she has not been able to fully regain her ROM. She used to lead with her right LE when going up stairs but now she leads with her left one. She has trouble picking things up from the ground. 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 She has stairs in her home but does not need to use them in order to live in her home. Pt lives at home with her who is able to help her with her mobility and helping her through her exercises. Pt reports that she still struggles with moving her leg when getting into bed and requires a leg assist. Treatment Goals Patient/Caregiver Goals be able to use the stairs again, get back to riding the bicycle, be able to get into/ out of kyak, getting back to walking her dog (20 minutes) PT-OP-C Subjective Start: 08/10/19 09:54 Freq: Status: Active Protocol: Document 11/05/19 14:09 LR (Rec: 11/05/19 18:01 [facility] [id number]) OP-PT Subjective Patient Comments Patient Comments Pt reports feeling like knee is looser PT-OP-E Functional Tests Start: 08/10/19 09:54 Freq: Status: Active Protocol: Document 09/17/19 13:01 [facility] (Rec: 09/17/19 15:46 LR [id number]) Functional Tests Tinetti Balance and Gait Assessment Balance Score 25 PT-OP-G Mobility & Gait Start: 08/10/19 09:54 Freq: Status: Active Protocol: Document 09/29/19 11:26 DLM (Rec: 09/29/19 11:47 DLM [id number]) OP Mobility Evaluation Bed Mobility Rolling independent Supine to and from Sit independent Transfers Sit to Stand uses UE's, tends to kick right foot out before sitting, increased weight on left LE OP Gait Assessment Gait Gait Assistance Required: Independent Assistive Devices Assistive Device Straight Cane Gait Deviations General Gait Pattern Antalgic,Decreased Stride Length Factors Limiting Gait Function Factors Limiting Gait Function Decreased Activity Tolerance, Decreased Sensation,Limited Range of Motion,Pain PT-OP-J Posture/Palpation/Skin Start: 08/10/19 09:54 Freq: Status: Active Protocol: Document 08/10/19 10:30 MT (Rec: 08/10/19 14:03 MT [id number]) Skin Assessment Incisional Assessment Incision Appearance/Comments Pt has B compression stockings on, as recommedned by her surgeon. Incision on R LE is covered with bandage. There is increased edema in R LE vs L LE. Pt has marked bruising around incisional area that extends beyond badange boundaries. Pt also has bruising in R UE from IV placement. PT-OP-K Range of Motion Start: 08/10/19 09:54 Freq: Status: Active Protocol: Document 10/05/19 09:50 LR (Rec: 10/05/19 19:05 LR [id number]) Knee Goniometric Range of Motion Knee Right Patient Position Supine Flexion Active (degrees) 82 Flexion Passive (degrees) 90 PT-OP-M Strength Start: 08/10/19 09:54 Freq: Status: Active Protocol: Document 09/17/19 13:01 [facility] (Rec: 09/17/19 15:46 [facility] [id number]) Hip Strength Hip Manual Muscle Testing Left Flexion (L2) 4 Good Extension (S1) 4- Good- Abduction 4+ Good+ External Rotation 4 Good Internal Rotation 4 Good Right Flexion (L2) 3 Fair Extension (S1) 3+ Fair+ Abduction 4+ Good+ External Rotation 3+ Fair+ Internal Rotation 3+ Fair+ Comments pt lacking full ext on R Knee Strength Knee Manual Muscle Testing Left Flexion (S2) 5 Normal Extension (L3) 5 Normal Comments measured in sitting position Right Flexion (S2) 3+ Fair+ Extension (L3) 4 Good Comments measured in sidelying for gravity eliminated position Ankle/Foot Strength Ankle and Foot Manual Muscle Testing Left Dorsiflexion (L4) 4+ Good+ Plantarflexion (S1) 4 Good Right Dorsiflexion (L4) 4 Good Plantarflexion (S1) 4+ Good+ Comments PF tested in seated B PT-OP-T Assessment and Plan Start: 08/10/19 09:54 Freq: Status: Active Protocol: Document 11/05/19 14:09 [facility] (Rec: 11/05/19 18:01 [facility] [id number]) Physical Therapy Assessment Goals stairs Nursing Home Goal (LTG) pt will be able to ascend/ descend stairs using reciprocal gait and use of railing on one side in order to improve pt functional mobility and independence around home 09/17-able to ascend 4 in step 1 rail and decend 4 in step with 2 rails 10/05- LTG Duration 11/09/19 LEFS Construction Checker Goal (LTG) Pt will improve LEFS score to a 60/80 in order to demonstrate improved ability and independence to carry out ADL's and functional movement 10/05- LTG Duration 11/09/19 gait Short Term Goal (STG) pt will increase Tinetti score to 24/28 in order to demonstrate increased balance and gait and decreased risk category for falls STG Duration achieved Construction Checker Goal (LTG) pt will be able to ambulate independently with SPC and minimal gait deviations in order to be able to return to walking her dog 09/17-able to walk with cane but not with dog 10/05-walking outside but not with dog yet, still deviations LTG Duration 11/09/19 ROM Short Term Goal (STG) Pt will increase R active knee extension to lacking 10 degrees in order to improve pt ability to extend knee for increased stability in gait STG Duration achieved Nursing Home Goal (LTG) Pt will be able to achieve 120 degrees of R knee flexion in order to return to riding a bie and be able to get into a sitting kyak 09/17-very slowly progressing since cleared to resume PT after DVT 10/05-improving since manipulation LTG Duration 11/09/19 strength Short Term Goal (STG) pt will be compliant and independent with HEP STG Duration achieved Construction Checker Goal (LTG) Pt will increase R LE strength to at least 4+/5 for all motions in order to increase independence with ADL's 09/17-improving ADL independence & strength LTG Duration 11/09/19 Assessment Summary Assessment 11-95 prior to manual treatment today. She imrpoved sginficaintly with her gait todayw ithout AD with cueing with improved fluidity and improved push off. Physical Therapy Plan Frequency and Duration Frequency of Treatment 5x/Week Duration of Treatment 3 months Plan of Care Start Date 09/24/19 Plan of Care End Date 11/19/19 Next Visit Focus/Plan Next Note Type Discharge Summary Next Visit Plan review HEP, edu how to assist with cueingw ith gait. re-assess goals
--- NOTE | 2020-04-28 08:31 | PT.OPDS ---
Current Diagnoses Unilateral primary osteoarthritis, right knee (11/05/19) Stiffness of right knee, not elsewhere classified (11/05/19) Difficulty in walking, not elsewhere classified (11/05/19) Weakness (11/05/19) Visit Care Team Role Provider Type Carly Kong DO Family Provider Physician Primary Care Provider Specialty: Family Practice Address: [address] [place] [address], [address], [place], [address] Email: [email or web address] Martha Gordon PA-C Attending Provider Non-Staff Specialty: Medical Address: [address] [place] [address], [phone] Email: Visit Number Visit Number 26 Discharge Summary PT-OP-B Current Condition Start: 08/10/19 09:54 Freq: Status: Active Protocol: Document 08/10/19 10:30 MT (Rec: 08/10/19 14:03 MT [id number]) Current Condition History of Current Condition Onset Date 08/06/19 History of Current Condition pt had R TKA on 08/06/19 in [place] to address oasteoarthritis. Pt currently uses 2WW for ambulation. Pt has cane that she used prior to surgery due to her knee pain and feeling like her knee was giving way. She had a L TKA 5 years ago and recovered from that well, but she reports that it still gives her issues with stairs and she has not been able to fully regain her ROM. She used to lead with her right LE when going up stairs but now she leads with her left one. She has trouble picking things up from the ground. 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 She has stairs in her home but does not need to use them in order to live in her home. Pt lives at home with her who is able to help her with her mobility and helping her through her exercises. Pt reports that she still struggles with moving her leg when getting into bed and requires a leg assist. Treatment Goals Patient/Caregiver Goals be able to use the stairs again, get back to riding the bicycle, be able to get into/ out of kyak, getting back to walking her dog (20 minutes) PT-OP-C Subjective Start: 08/10/19 09:54 Freq: Status: Active Protocol: Document 11/05/19 14:09 LR (Rec: 11/05/19 18:01 [facility] [id number]) OP-PT Subjective Patient Comments Patient Comments Pt reports feeling like knee is looser PT-OP-E Functional Tests Start: 08/10/19 09:54 Freq: Status: Active Protocol: Document 09/17/19 13:01 [facility] (Rec: 09/17/19 15:46 LR [id number]) Functional Tests Tinetti Balance and Gait Assessment Balance Score 25 PT-OP-G Mobility & Gait Start: 08/10/19 09:54 Freq: Status: Active Protocol: Document 09/29/19 11:26 DLM (Rec: 09/29/19 11:47 DLM [id number]) OP Mobility Evaluation Bed Mobility Rolling independent Supine to and from Sit independent Transfers Sit to Stand uses UE's, tends to kick right foot out before sitting, increased weight on left LE OP Gait Assessment Gait Gait Assistance Required: Independent Assistive Devices Assistive Device Straight Cane Gait Deviations General Gait Pattern Antalgic,Decreased Stride Length Factors Limiting Gait Function Factors Limiting Gait Function Decreased Activity Tolerance, Decreased Sensation,Limited Range of Motion,Pain PT-OP-J Posture/Palpation/Skin Start: 08/10/19 09:54 Freq: Status: Active Protocol: Document 08/10/19 10:30 MT (Rec: 08/10/19 14:03 MT [id number]) Skin Assessment Incisional Assessment Incision Appearance/Comments Pt has B compression stockings on, as recommedned by her surgeon. Incision on R LE is covered with bandage. There is increased edema in R LE vs L LE. Pt has marked bruising around incisional area that extends beyond badange boundaries. Pt also has bruising in R UE from IV placement. PT-OP-K Range of Motion Start: 08/10/19 09:54 Freq: Status: Active Protocol: Document 10/05/19 09:50 LR (Rec: 10/05/19 19:05 LR [id number]) Knee Goniometric Range of Motion Knee Right Patient Position Supine Flexion Active (degrees) 82 Flexion Passive (degrees) 90 PT-OP-M Strength Start: 08/10/19 09:54 Freq: Status: Active Protocol: Document 09/17/19 13:01 [facility] (Rec: 09/17/19 15:46 [facility] [id number]) Hip Strength Hip Manual Muscle Testing Left Flexion (L2) 4 Good Extension (S1) 4- Good- Abduction 4+ Good+ External Rotation 4 Good Internal Rotation 4 Good Right Flexion (L2) 3 Fair Extension (S1) 3+ Fair+ Abduction 4+ Good+ External Rotation 3+ Fair+ Internal Rotation 3+ Fair+ Comments pt lacking full ext on R Knee Strength Knee Manual Muscle Testing Left Flexion (S2) 5 Normal Extension (L3) 5 Normal Comments measured in sitting position Right Flexion (S2) 3+ Fair+ Extension (L3) 4 Good Comments measured in sidelying for gravity eliminated position Ankle/Foot Strength Ankle and Foot Manual Muscle Testing Left Dorsiflexion (L4) 4+ Good+ Plantarflexion (S1) 4 Good Right Dorsiflexion (L4) 4 Good Plantarflexion (S1) 4+ Good+ Comments PF tested in seated B PT-OP-T Assessment and Plan Start: 08/10/19 09:54 Freq: Status: Active Protocol: Document 04/28/20 08:30 [facility] (Rec: 04/28/20 08:31 [facility] [id number]) Physical Therapy Assessment Assessment Summary Assessment Pt stopped being seen d/t clinic closure d/t COVID and upon reopening, pt felt like she was doingw ell enough with HEP to cont on her own at that time. DC at this time. Physical Therapy Plan Discharge Physical Therapy Discharge Reasons No Longer Attending PT
== END 2020-04-29 08:09 ==
LOC: PHYS 13:45
PROVIDERS: Family Provider Family Medicine; PCP Family Medicine; Visit Provider Physician Assistant
DX: M17.11 Unilateral primary osteoarthritis, right knee (principal); R26.2 Difficulty in walking, not elsewhere classified; R53.1 Weakness; M25.661 Stiffness of right knee, not elsewhere classified
CPT/HCPCS: 97014; 97110; 97112; 97116; 97140; 97162; 97530; G0283

== ENCOUNTER 2020-06-21 14:58 | Emergency (ER) | payer MEDICARE, OTHER, SELFPAY ==
[2020-06-21 15:12] VITALS: BP 203/92; PULSE 79; RESP 16; TEMP 36.6; O2SAT 100; BMI 35.2
--- NOTE | 2020-06-21 15:19 | DI.CT.S_ITS ---
PROCEDURE: CT HEAD/BRAIN WO CON INDICATIONS: s/p fall and hit top of head on boat trailer, on warfarin TECHNIQUE: Noncontrast 4.5 mm thick angled axial sections acquired from the foramen magnum to the vertex, with coronal and sagittal reformats. For radiation dose reduction, the following was used: automated exposure control, adjustment of mA and/or kV according to patient size. COMPARISON: None. FINDINGS: Image quality: Excellent. CSF spaces: Basal cisterns are patent. No extra-axial fluid collections. The ventricles are symmetric in size and shape. Brain: No intracranial bleeds or masses. There is cerebral volume loss for age, with resultant ventricular and sulcal prominence. There are periventricular and deep white matter chronic small vessel ischemic changes. There is intracranial internal carotid artery atherosclerosis. Skull and face: Calvarium and visualized facial bones appear intact, without suspicious lesions. Sinuses: Visualized sinuses and mastoids are clear. IMPRESSION: No acute intracranial hemorrhage is seen. No acute intracranial process is seen. Note is made of age-appropriate brain parenchymal volume loss and chronic small vessel ischemic changes. Dictated by: Roberto Redman M.D. on 06/21/2020 at 14:52 Approved by: Roberto Redman M.D. on 06/21/2020 at 14:53
[2020-06-21 16:25] VITALS: BP 145/59; PULSE 73; RESP 16; O2SAT 98
--- NOTE | 2020-06-21 17:57 | ED_ITS ---
HPI - Fall <Shabbir MARIBEL Perera - Last Filed: 06/21/20 22:41> General Chief Complaint: Fall Stated Complaint: fell, hit head, on blood thinners Time Seen by Provider: 06/21/20 15:03 Source: patient Mode of arrival: Ambulatory Limitations: no limitations History of Present Illness HPI Narrative: This is a 65 year female, nonsmoker, who has medical history significant for DVT and currently takes Coumadin 7.5 mg daily, hypertension, hypothyroidism presents to ED with her spouse with s/p fall after she accidentally tripped cold in RV parking lot and hit top of head on a boat trail/outboard of the boat. She also reports right ear discomfort, clogged, and draining and states she has small ear canal. Patient states she is planning to see ENT specialist. Patient denies fever, chills. Patient denies loss of consciousness, nausea or vomiting, vision change, weakness to extremities, mid posterior neck pain, tingling/numbness to extremities. Patient had check INR 11 days ago using home INR machine with result of 1.9. INR goal is 2-3. Related Data Home Medications Medication Instructions Recorded Confirmed levocetirizine 5 mg PO DAILY 05/27/19 05/04/20 Resmed Aircurve 10 BIPAP #1 ea 06/11/19 05/04/20 atorvastatin [Lipitor] 10 mg PO BEDTIME 08/12/19 05/04/20 betamethasone dipropionate 1 applic TOPICAL DAILY 08/12/19 05/04/20 levothyroxine [Synthroid] 50 mcg PO DAILY 08/12/19 05/04/20 acetaminophen 650 mg PO Q6H PRN 08/18/19 05/04/20 omeprazole 20 mg capsule,delayed 20 mg PO DAILY 01/27/20 05/04/20 release flu vacc [id number] 6mos up(PF) IM 06/21/20 [Fluarix Quad [id number] (PF)] metoprolol succinate PO 06/21/20 omeprazole 06/21/20 Previous Rx's Medication Instructions Recorded metoprolol succinate 50 mg 50 mg PO DAILY #90 tab 02/04/20 tablet,extended release 24 hr warfarin 2.5 mg tablet See Rx Instructions .ROUTE 02/19/20 .COMPLEX #360 tab CMP Estriol Vaginal Cream 0.2% See Rx Instructions .ROUTE 04/12/20 .COMPLEX #30 gram amoxicillin 500 mg PO Q8H 5 Days #15 cap 06/21/20 Allergies Allergy/AdvReac Type Severity Reaction Status Date / Time diazepam Allergy Severe eyes Verified 05/04/20 09:33 swelled shut, hard to breath epinephrine Allergy Severe SEIZURES Verified 05/04/20 09:33 clindamycin Allergy Mild RASH Verified 05/04/20 09:33 doxycycline Allergy Unknown RASH Verified 05/04/20 09:33 azithromycin AdvReac Unknown THROW UP Verified 05/04/20 09:33 Review of Systems <MARIBEL Greer - Last Filed: 06/21/20 22:41> Review of Systems Narrative: General: Denies fever, chills, fatigue, malaise, sweats. HEENT: Denies sinus pain, ear pain, sore throat, difficulty swallowing, dizziness. Respiratory: Denies dyspnea, cough, wheezing, hemoptysis, sputum. Cardiovascular: Denies chest pain, palpitations, orthopnea, edema. Gastrointestinal: Denies nausea, vomiting, abdominal pain, diarrhea, constipation, melena. : Denies dysuria, frequency, incontinence, hematuria, urinary retention. Musculoskeletal: Denies weakness, joint pain or bony pain. Skin: Denies rash, skin lesions, or other. Neurologic: Denies weakness, headache, numbness, change in speech, confusion, seizures, incoordination. Psychiatric: No concerning psychosocial issues. 12-point review of systems is negative except for those stated above. Patient History <MARIBEL Greer - Last Filed: 06/21/20 22:41> Medical History (Updated 06/21/20 @ 16:16 by MARIBEL Greer) Abnormal Pap smear of cervix (Chronic) Acne (Resolved 1969) Anaphylactic reaction (Resolved) DVT (deep venous thrombosis) (Resolved 2013) DVT (deep venous thrombosis) (Acute) Eczema (Chronic) Excessive daytime sleepiness (Chronic) Fibroids (Chronic) Gastro-esophageal reflux disease with esophagitis (Chronic) Hayfever (Chronic 1966) Hepatitis B (Chronic ~1976) History of ovarian cyst (Chronic) History of torn meniscus of left knee (Resolved 2012) Hyperlipidemia (Chronic) Hypothyroidism (Chronic 2009) Infertility (Chronic) Irritable larynx syndrome (Chronic) Lichen planus (Acute) Measles (Resolved) Mumps (Resolved) Obesity (BMI 30-39.9) (Chronic) Obstructive sleep apnea of adult (Chronic) Osteoarthritis (Chronic) Osteoarthritis of right knee (Chronic) PCOS (polycystic ovarian syndrome) (Chronic 1974) Plantar warts (Chronic) Postoperative pulmonary embolism (Resolved 2013) Retinal detachment, left (Resolved 2010) Retinal detachment, right (Resolved 2011) Rosacea (Resolved 2008) Shoulder pain (Chronic) Sleep apnea (Chronic ~2016) Surgical History Anesthesia (Resolved) History of eye surgery (Resolved 02/27/11) History of eye surgery (Resolved 05/15/12) History of knee replacement (Resolved 05/13/14) History of sinus surgery (Resolved 1987) History of surgical removal of meniscus of knee (Resolved 09/03/13) History of tonsillectomy (Resolved 1964) Status post delivery (Resolved 12/1984) Status post delivery (Resolved 06/1981) Status post endometrial ablation (Resolved 2005) Status post loop electrosurgical excision procedure (LEEP) of cervix (Resolved 01/2006) Status post surgical removal of neoplasm of skin (Resolved 1957) Family History Father Heart disease Mother Osteoporosis Stroke Celiac disease Glaucoma COPD (chronic obstructive pulmonary disease) Emphysema lung Sister Age: 61 Alcoholic Drug abuse Hepatitis C Son No problems noted. Son [id number] transgender person PCOS (polycystic ovarian syndrome) Social History Smoking Status: Never smoker Smoking Status: Never smoker alcohol intake frequency: holidays/special occasions only Substance Use Type: does not use Exam <Shabbir Dilma COMPUTER SCIENCES PROFESSOR - Last Filed: 06/21/20 22:41> Narrative Exam Narrative: GEN: Alert, oriented x 3, well appearing and nourished, and in no acute distress. Head: Normal cephalic, atraumatic. No Villalba signs. Top of head slight tenderness to palpate without abrasions or hematoma. No temporal tenderness, no step-offs, palpable mass or rash. EYES: Pupils are equal, round, and reactive to light and accommodation. Extraocular muscles are intact bilaterally. There is no subconjunctival hemorrhage, exudate and sclera non-icteric. ENT: Right ear with purulent middle ear effusion and scant amount purulent drainge in auditory canal. No tenderness to palpate on tragus. Left tympanic membrane clear. Nose without bleeding, purulent discharge or deviation. Mucous membrane moist, no mucosal lesion. Throat without erythema, tonsillar hypertrophy or exudate. Uvula in midline, airway patent. Neck: Trachea in midline. No JVD, non-tender without lymphadenopathy. No masses or thyroid megaly. Supple, no step-offs, non-tender and no meningeal signs. No pain with flexion, rotation. CARDIAC: Normal regular rate and rhythm without murmurs, gallops, or rubs. No chest wall tenderness. No peripheral edema, cyanosis or pallor. Capillary refill is less than 2 seconds. RESPIRATORY: Lungs are clear to auscultate bilaterally. No cough, wheezes, rales, or rhonchi. No stridor, respiratory distress, increase work of breathing, or accessary muscle used. ABD: Abdomen soft, nontender and non-distended. No guarding or rebound tenderness to palpate. Bowel sounds are normal in all 4 quadrants. There is no palpable masses or organomegaly. EXT: Full painless ROM of all extremities with no loss of sensation, strength, effusion or edema. SKIN: A fine erythematous papule on right lower extremity. No signs of cellulitis. Warm, dry, normal color for patient. BACK: Nontender without deformity or crepitance. No flank tenderness. NEUROLOGICAL: Alert and oriented to place, time and person. Sensation and motor function intact bilaterally. No facial droops, dysphasia. PSYCHIATRIC: Good judgement and reason, without hallucinations, abnormal affect or abnormal behaviors during the examination. Patient is not suicidal. Initial Vital Signs Initial Vital Signs: Vital Signs Temperature 97.9 F 06/21/20 15:12 Pulse Rate 79 06/21/20 15:12 Respiratory Rate 16 06/21/20 15:12 Blood Pressure 203/92 H 06/21/20 15:12 Pulse Oximetry 100 06/21/20 15:12 <Preston Dolan, DO - Last Filed: 06/22/20 07:26> Initial Vital Signs Initial Vital Signs: Vital Signs Temperature 97.9 F 06/21/20 15:12 Pulse Rate 79 06/21/20 15:12 Respiratory Rate 16 06/21/20 15:12 Blood Pressure 203/92 H 06/21/20 15:12 Pulse Oximetry 100 06/21/20 15:12 Scores <Shabbir Varela-JuanERIN singletaryP - Last Filed: 06/21/20 22:41> GCS Jefrfey coma scale eye opening: Spontaneous Jeffrey coma scale verbal response: Orientated Jeffrey coma scale motor response: Obey commands Jeffrey coma scale total score: 15 Nexus Score for C-Spine Focal Neurologic deficit present: No Midline spinal tenderness present: No Altered level of conciousness present: No Intoxication present: No Distracting Injury Present: No Nexus Criteria for C-spine: 0 Course <Shabbir VarelaERIN AshtonP - Last Filed: 06/21/20 22:41> Orders Ordered: ED Orders 06/21/20 15:19 CT head/brain wo con Stat Vital Signs Vital signs: Vital Signs - 8 hr 06/21/20 15:12 06/21/20 16:25 Temperature 97.9 F Pulse Rate 79 73 Respiratory Rate 16 16 Blood Pressure 203/92 H 145/59 H Pulse Oximetry 100 98 <Preston Dolan DO - Last Filed: 06/22/20 07:26> Orders Ordered: ED Orders 06/21/20 15:19 CT head/brain wo con Stat Vital Signs Vital signs: Vital Signs - 8 hr 06/21/20 15:12 06/21/20 16:25 Temperature 97.9 F Pulse Rate 79 73 Respiratory Rate 16 16 Blood Pressure 203/92 H 145/59 H Pulse Oximetry 100 98 MDM - Fall <Shabbir Varela-JuanERIN singletaryP - Last Filed: 06/21/20 22:41> Differential Diagnosis Differential diagnosis: Likely concussion without loss of consciousness and other (Intracranial hemorrhage, closed head injury, otitis media, otitis externa) Medical Records Attestation: I reviewed the patient's medical records. Imaging Data CT scan - head: Radiologist's Impression: [address] [address] [address] Scan Report Signed Patient: Kristi Long LMR#: [id number] : 5Acct:[id number] Age/Sex: 65 / FDate of Service: 06/21/20 Loc: ED Accession Number: [id number] Procedure: CT head/brain wo con Ordering Provider: Shabbir Perera PROCEDURE: CT HEAD/BRAIN WO CON INDICATIONS: s/p fall and hit top of head on boat trailer, on warfarin TECHNIQUE: Noncontrast 4.5 mm thick angled axial sections acquired from the foramen magnum to the vertex, with coronal and sagittal reformats. For radiation dose reduction, the following was used: automated exposure control, adjustment of mA and/or kV according to patient size. COMPARISON: None. FINDINGS: Image quality: Excellent. CSF spaces: Basal cisterns are patent. No extra-axial fluid collections. The ventricles are symmetric in size and shape. Brain: No intracranial bleeds or masses. There is cerebral volume loss for age, with resultant ventricular and sulcal prominence. There are periventricular and deep white matter chronic small vessel ischemic changes. There is intracranial internal carotid artery atherosclerosis. Skull and face: Calvarium and visualized facial bones appear intact, without suspicious lesions. Sinuses: Visualized sinuses and mastoids are clear. IMPRESSION: No acute intracranial hemorrhage is seen. No acute intracranial process is seen. Note is made of age-appropriate brain parenchymal volume loss and chronic small vessel ischemic changes. Dictated by: Robreto Redman M.D. on 06/21/2020 at 14:52 Approved by: Roberto Redman M.D. on 06/21/2020 at 14:53 MDM Narrative Medical decision making narrative: Trauma Activation initiated due to patient's age, fall, head injury on anticoagulant. This is a 65-year-old female who presents to ED with closed head injury who is on Coumadin currently for DVT. Patient is alert and oriented without loss of consciousness and neurologically intact after the injury. Mild tenderness to palpate on top of her head without hematoma. No mid cervical tenderness to palpate with equal bilateral strength and sensation in upper extremities. Last INR was 1.9 about 11 days ago. Patient checks INR weekly at home and she has ran out of lancets. She declined lab test today and states she will check it today at home after getting more lancets from the clinic today. CT of head without acute findings such as intracranial bleeding but shows chronic small-vessel ischemic changes. Right ear exam consistent with otitis media with small amount purulent drainage. Patient instructed to check INR after a day of antibiotic medication amoxicillin and to recheck every 2 days and to communicate this with Coumadin nurse at the clinic. I communicated this with Coumadin RN as well when she visited the ER to speak with the patient. Patient advised to follow-up with her primary care physician and or ENT specialist as she planned in 2-3 days after completing the antibiotic medication. Return precautions were discussed with patient and she verbalized understanding and agreement with treatment plan. Discharge Plan Departure Patient Disposition: Home Clinical Impression: CHI (closed head injury) Qualifiers: Encounter type: initial encounter Qualified Code(s): S09.90XA - Unspecified injury of head, initial encounter Fall Qualifiers: Encounter type: initial encounter Qualified Code(s): W19.XXXA - Unspecified fall, initial encounter Otitis media Qualifiers: Otitis media type: unspecified Chronicity: acute Qualified Code(s): H66.90 - Otitis media, unspecified, unspecified ear Discharge Date/Time: 06/21/20 16:34 Instructions: DI for Closed Head Injury, DI for Middle Ear Infection-Adult Activity Restrictions/Additional Instructions: You have been diagnosed with [closed head injury from a fall. Head CT is negative for intracranial hemorrhage. Right ear middle ear infection.]. What to do: *Take your medications as directed. Please start taking amoxicillin 3 times a day for next 5 days. Please check INR today and after 1 day use started the medication and every other day and communicate this with INR nurse. *Follow up with your primary care provider in 2-3 days, call for an appointment. Let them know you were seen in the ED and that we asked you to be seen in follow up. *Return to ED if you have any new, worsening, or concerning symptoms, such as [chest pain, breathing difficulty, unable to tolerate fluids, vision change, weakness to extremities, unusual behaviors, or seizure activities.]. Prescriptions: New amoxicillin 500 mg capsule 500 mg PO Q8H 5 Days Qty: 15 RF: 0 No Action metoprolol succinate [Toprol XL] 50 mg tablet extended release 24 hr 50 mg PO DAILY Qty: 90 RF: 0 warfarin 2.5 mg tablet See Rx Instructions .ROUTE .COMPLEX Qty: 360 RF: 0 CMP Estriol Vaginal Cream 0.2% See Rx Instructions .ROUTE .COMPLEX Qty: 30 RF: 6 omeprazole 20 mg capsule,delayed release(DR/EC) 20 mg PO DAILY RF: 0 levocetirizine 5 mg Tablet 5 mg PO DAILY RF: 0 betamethasone dipropionate 0.05 % cream 1 applic TOPICAL DAILY RF: 0 atorvastatin [Lipitor] 10 mg tablet 10 mg PO BEDTIME RF: 0 levothyroxine [Synthroid] 50 mcg tablet 50 mcg PO DAILY RF: 0 acetaminophen 325 mg Tablet 650 mg PO Q6H PRN (Reason: pain) RF: 0 Fluarix Quad [id number] (PF) 60 mcg (15 mcg x 4)/0.5 mL syringe IM RF: 0 metoprolol succinate 50 mg tablet extended release 24 hr PO RF: 0 omeprazole 20 mg capsule,delayed release(DR/EC) RF: 0 (DME) Resmed Aircurve 10 BIPAP Qty: 1 RF: 0 Referrals: Carly Kong DO [Primary Care Provider] - <Preston Dolan DO - Last Filed: 06/22/20 07:26> Cosign ED Attending Daljitature Attestation: I was immediately available in the department for consultation. This documentation has been reviewed and I agree with assessment and plan. Supervised by Preston Dolan DO
== END 2020-06-21 16:34 | disposition home or self-care (01) ==
PROVIDERS: Emergency Provider Nurse Practitioner Family; PCP Family Medicine
DX: S09.90XA Unspecified injury of head, initial encounter (principal); S00.03XA Contusion of scalp, initial encounter; H66.91 Otitis media, unspecified, right ear; W19.XXXA Unspecified fall, initial encounter; Z79.01 Long term (current) use of anticoagulants; I10 Essential (primary) hypertension; E03.9 Hypothyroidism, unspecified
CPT/HCPCS: 70450; 99281; 99284

== ENCOUNTER → 2020-10-20 12:18 | Outpatient (CLI) | payer MEDICARE, OTHER, SELFPAY ==
--- NOTE | 2020-10-20 12:19 | DI.MG.S_ITS ---
BILATERAL DIGITAL SCREENING MAMMOGRAM 3D/2D WITH CAD: 10/20/2020 CLINICAL: Routine screening. Comparison is made to exams dated: 12/07/2017 mammogram, 01/19/2016 mammogram, and 09/07/2014 mammogram - [facility]. There are scattered fibroglandular elements in both breasts. Current study was also evaluated with a Computer Aided Detection (CAD) system. No significant masses, calcifications, or other findings are seen in either breast. There has been no significant interval change. IMPRESSION: NEGATIVE There is no mammographic evidence of malignancy. A 1 year screening mammogram is recommended. This exam was interpreted at Station ID: [id number]. NOTE: For mammograms, a report in lay terms will be sent to the patient. Approximately 15% of breast malignancies will not be visualized mammographically. In the management of a palpable breast mass, a negative mammogram must not discourage biopsy of a clinically suspicious lesion. Electronically Signed By: Angel canales/pasha:10/21/2020 12:04:58 letter sent: Normal Exam ACR BI-RADS Category 1: Negative [id number]
== END ==
PROVIDERS: PCP Family Medicine; Referring Provider Family Medicine; Visit Provider Family Medicine
DX: Z12.31 Encounter for screening mammogram for malignant neoplasm of breast (principal); M85.852 Other specified disorders of bone density and structure, left thigh; Z78.0 Asymptomatic menopausal state; E03.9 Hypothyroidism, unspecified; E66.9 Obesity, unspecified; E78.5 Hyperlipidemia, unspecified; I10 Essential (primary) hypertension; Z82.62 Family history of osteoporosis
CPT/HCPCS: 77063; 77067; 77080

== ENCOUNTER → 2020-11-30 08:21 | Outpatient (CLI) | payer MEDICARE, OTHER, SELFPAY ==
[2020-11-30 10:38] LABS: Alanine Aminotransferase 36 IU/L (<35); Albumin 4.3 g/dL (3.5-5.0); Albumin Globulin Ratio 1.9 (1.0-2.8); Alkaline Phosphatase 76 U/L (38-126); Aspartate Aminotransferase 28 IU/L (14-36); BUN Creatinine Ratio 29.4 (6-22); Bilirubin Total 0.5 mg/dL (0.2-1.3); Blood Urea Nitrogen 15 mg/dL (7-17); Calcium 9.6 mg/dL (8.4-10.2); Carbon Dioxide 28 mmol/L (22-32); Chloride 102 mmol/L (98-107); Cholesterol 206 mg/dL (140-199); Estimated Glomerular Filt Rate > 60.0 mL/min (>60); Globulin 2.3 g/dL (1.7-4.1); Glucose 108 mg/dL (80-110); HDL Cholesterol 75 mg/dL (40-60); HEMOLYSIS 20 (0-50); LDL Cholesterol Calculated 104 mg/dL (<100); Potassium 4.5 mmol/L (3.4-5.1); Sodium 138 mmol/L (137-145); Total Protein 6.6 g/dL (6.3-8.2); Triglycerides 133 mg/dL (35-150)
[2020-11-30 11:07] LABS: TSH w/ Reflex to FT4 1.84 uIU/mL (0.47-4.68)
== END ==
PROVIDERS: PCP Family Medicine; Referring Provider Family Medicine; Visit Provider Family Medicine
DX: E03.9 Hypothyroidism, unspecified (principal); E66.9 Obesity, unspecified; E78.5 Hyperlipidemia, unspecified; I10 Essential (primary) hypertension
CPT/HCPCS: 36415; 80053; 80061; 84443

== ENCOUNTER → 2020-12-23 09:25 | Outpatient (CLI) | payer MEDICARE, OTHER, SELFPAY ==
[2020-12-23 10:41] LABS: COVID19 -Nasal RAPID Negative (Negative)
[2020-12-23 14:21] LABS: Clostridium Difficile Tox PCR Negative for C. diff
== END ==
PROVIDERS: PCP Family Medicine; Visit Provider Student in an Organized Health Care Education/Training Program
DX: R19.7 Diarrhea, unspecified (principal); Z20.822 Contact with and (suspected) exposure to COVID-19
CPT/HCPCS: 87493; 87635

== ENCOUNTER 2020-12-24 05:27 | Emergency (ER) | payer MEDICARE, OTHER, SELFPAY ==
[2020-12-24 05:35] VITALS: BP 171/84; PULSE 103; RESP 18; TEMP 37; O2SAT 99; BMI 36.1
--- NOTE | 2020-12-24 06:19 | ED_ITS ---
HPI - Nausea/Vomiting/Diarrhea <DO Radhika Aguilar Last Filed: 12/24/20 22:14> General Chief complaint: Nausea/Vomiting/Diarrhea Stated complaint: Dehydration, diarrhea Time Seen by Provider: 12/24/20 05:57 Source: patient Mode of arrival: Ambulatory Limitations: no limitations History of Present Illness HPI Narrative: The patient is a 65-year-old female presents with diarrhea ongoing for about the last 5 days. She says in the last 24 hours she has had at least 15 or watery explosive like episodes of diarrhea. She denies any blood despite being on anticoagulation for DVT and PE. She generally feels weak and tired some mild nausea no vomiting. She also has some abdominal cramping. No prior history of recent antibiotics or recent travel. No known sick contacts at home MD complaint: diarrhea Related Data Home Medications Medication Instructions Recorded Confirmed levocetirizine 5 mg PO DAILY 05/27/19 12/23/20 Resmed Aircurve 10 BIPAP #1 ea 06/11/19 12/23/20 betamethasone dipropionate 1 applic TOPICAL DAILY 08/12/19 12/23/20 acetaminophen 650 mg PO Q6H PRN 08/18/19 12/23/20 rivaroxaban 10 mg tablet 10 mg PO DAILY 07/20/20 12/23/20 Previous Rx's Medication Instructions Recorded cyclobenzaprine 10 mg tablet See Rx Instructions PO TID PRN #20 06/22/20 tab atorvastatin 10 mg tablet 10 mg PO BEDTIME #90 tab 07/14/20 levothyroxine 50 mcg tablet 50 mcg PO DAILY #90 tab 07/14/20 CMP Estriol Vaginal Cream 0.2% See Rx Instructions .ROUTE 10/25/20 .COMPLEX #30 gram metoprolol succinate 25 mg 25 mg PO DAILY #90 tab 12/08/20 tablet,extended release 24 hr Allergies Allergy/AdvReac Type Severity Reaction Status Date / Time diazepam Allergy Severe eyes Verified 12/23/20 09:35 swelled shut, hard to breath epinephrine Allergy Severe SEIZURES Verified 12/23/20 09:35 clindamycin Allergy Mild RASH Verified 12/23/20 09:35 doxycycline Allergy Unknown RASH Verified 12/23/20 09:35 azithromycin AdvReac Unknown THROW UP Verified 12/23/20 09:35 Review of Systems <DO Radhika Aguilar Last Filed: 12/24/20 22:14> Review of Systems Narrative: GENERAL: Denies chills, fatigue, malaise, fever, sweats, travel HEENT: Denies sinus pain, ear pain, sore throat, difficulty swallowing, neck pain RESPIRATORY: Denies dyspnea, cough, wheezing, hemoptysis, sputum. CARDIOVASCULAR: Denies chest pain, palpitations, orthopnea, edema GASTROINTESTINAL: See HPI : Denies dysuria, frequency, incontinence, hematuria, urinary retention, flank pain. MUSCULOSKELETAL: Denies weakness, joint pain, or bony pain SKIN: No rash, no erythema, no pruritus NEUROLOGIC: Denies weakness, dizziness, headache, numbness, change in speech, confusion PSYCHIATRIC: No concerning psychosocial issues. 12 point review of systems is negative except for those stated above and HPI Patient History <Katalina Sánchez DO - Last Filed: 12/24/20 22:14> Medical History Abnormal Pap smear of cervix Acne (1969) Anaphylactic reaction Contact dermatitis DVT (deep venous thrombosis) (2013) DVT (deep venous thrombosis) DVT of axillary vein, chronic left Eczema Excessive daytime sleepiness Fibroids Gastro-esophageal reflux disease with esophagitis Hayfever (1966) Hepatitis B (~1976) History of ovarian cyst History of torn meniscus of left knee (2012) Hyperlipidemia Hypothyroidism (2009) Infertility Irritable larynx syndrome Lichen planus Measles Mumps Obesity (BMI 30-39.9) Obstructive sleep apnea of adult Osteoarthritis Osteoarthritis of right knee PCOS (polycystic ovarian syndrome) (1974) Plantar warts Postoperative pulmonary embolism (2013) Retinal detachment, left (2010) Retinal detachment, right (2011) Rosacea (2008) Sensorineural hearing loss, bilateral Shoulder pain Sleep apnea (~2015) Subungual hematoma of great toe Surgical History Anesthesia History of eye surgery (02/27/11) History of eye surgery (05/15/12) History of knee replacement (05/13/14) History of sinus surgery (1987) History of surgical removal of meniscus of knee (09/03/13) History of tonsillectomy (1964) Status post delivery (12/1984) Status post delivery (06/1981) Status post endometrial ablation (2005) Status post loop electrosurgical excision procedure (LEEP) of cervix (01/2006) Status post surgical removal of neoplasm of skin (1957) Family History Father Heart disease Mother Osteoporosis Stroke Celiac disease Glaucoma COPD (chronic obstructive pulmonary disease) Emphysema lung Sister Age: 61 Alcoholic Drug abuse Hepatitis C Son No problems noted. Son [id number] transgender person PCOS (polycystic ovarian syndrome) Social History Smoking Status: Never smoker Smoking Status: Never smoker alcohol intake frequency: holidays/special occasions only Substance Use Type: does not use Exam <DO Radhika Aguilar Last Filed: 12/24/20 22:14> Initial Vital Signs Initial Vital Signs: Vital Signs Temperature 98.6 F 12/24/20 05:35 Pulse Rate 103 H 12/24/20 05:35 Respiratory Rate 18 12/24/20 05:35 Blood Pressure 171/84 H 12/24/20 05:35 Pulse Oximetry 99 12/24/20 05:35 GENERAL: Well-appearing, well-nourished and in no acute distress. HEENT: Head atraumatic,EOMI, pupils reactive, face symmetric, moist mucous membranes CARDIOVASCULAR: Regular rate and rhythm without murmurs, rubs or gallops. RESPIRATORY: Breath sounds equal bilaterally, no wheezes rales or rhonchi. ABDOMEN: Soft, nontender. Normoactive bowel sounds all 4 quadrants. No guarding or rebound. EXTREMITIES: Normal range of motion, no clubbing or edema. Neurovascularly intact NEUROLOGICAL: Alert and oriented x4.Normal gait and speech. Cranial nerves II through XII grossly intact. SKIN: Warm, dry, no laceration, no petechiae, no rashes or lesions. <Enedina Soliz DO - Last Filed: 12/24/20 18:48> Initial Vital Signs Initial Vital Signs: Vital Signs Temperature 98.6 F 12/24/20 05:35 Pulse Rate 103 H 12/24/20 05:35 Respiratory Rate 18 12/24/20 05:35 Blood Pressure 171/84 H 12/24/20 05:35 Pulse Oximetry 99 12/24/20 05:35 Course <Katalina Sánchez DO - Last Filed: 12/24/20 22:14> Orders Ordered: Discontinued Medications Sodium Chloride (Normal Saline 0.9%) 1,000 mls @ 1,000 mls/hr IV CONT KAREN Last Infusion: 12/24/20 08:27 Dose: 0 mls/hr Documented by: Admin: 12/24/20 06:24 Dose: 1,000 mls/hr Documented by: LEANNA Ondansetron HCl (Ondansetron 4 Mg/2 Ml Inj) 4 mg IV NOW ONE Stop: 12/24/20 05:58 Last Admin: 12/24/20 06:24 Dose: 4 mg Documented by: LEANNA Vital Signs Vital signs: Vital Signs - 8 hr 12/24/20 05:35 12/24/20 06:35 12/24/20 07:00 Temperature 98.6 F Pulse Rate 103 H 81 85 Respiratory Rate 18 Blood Pressure 171/84 H 125/60 Pulse Oximetry 99 97 97 12/24/20 07:30 12/24/20 08:00 Temperature Pulse Rate 78 84 Respiratory Rate Blood Pressure 120/63 128/63 Pulse Oximetry 98 99 <Enedina Soliz, DO - Last Filed: 12/24/20 18:48> Orders Ordered: Discontinued Medications Sodium Chloride (Normal Saline 0.9%) 1,000 mls @ 1,000 mls/hr IV CONT KAREN Last Infusion: 12/24/20 08:27 Dose: 0 mls/hr Documented by: Admin: 12/24/20 06:24 Dose: 1,000 mls/hr Documented by: LEANNA Ondansetron HCl (Ondansetron 4 Mg/2 Ml Inj) 4 mg IV NOW ONE Stop: 12/24/20 05:58 Last Admin: 12/24/20 06:24 Dose: 4 mg Documented by: LEANNA Reevaluation(s) Reevaluation #1: Patient signed out to myself by Dr. Sánchez. Patient labs reviewed. GI panel is negative. CBC and CMP and UA do not show an acute cause of patients diarrhea. Patient was re-examined by myself. She is nontender on examination. Patient has not had similar symptoms in the past. She has not had any new medication changes, she is not on any stool softeners or other medications that would likely cause her to have diarrhea. Patient has not had any fevers, no nausea or vomiting, no black or bloody stools or other changes besides frequent diarrhea for the past 5 days. Discussed today's findings with the patient. At this time I would defer imaging she is nontender on examination. Patient and I also discussed that she should watch for changes such as black or bloody stools, fevers, or new abdominal pain and return to the emergency department if she notes these. All questions were answered patient feels comfortable with the plan. We did discuss she would need follow-up with her primary care if she continues to have episodes Time: 08:25 Vital Signs Vital signs: Vital Signs - 8 hr 12/24/20 05:35 12/24/20 06:35 12/24/20 07:00 Temperature 98.6 F Pulse Rate 103 H 81 85 Respiratory Rate 18 Blood Pressure 171/84 H 125/60 Pulse Oximetry 99 97 97 12/24/20 07:30 12/24/20 08:00 Temperature Pulse Rate 78 84 Respiratory Rate Blood Pressure 120/63 128/63 Pulse Oximetry 98 99 MDM - Nausea/Vomiting/Diarrhea <Katalina Sánchez, - Last Filed: 12/24/20 22:14> Lab Data Result diagrams: 12/24/20 06:17 12/24/20 06:17 Labs: Lab Results 12/24/20 12/24/20 12/24/20 Range/Units 06:17 06:17 06:52 WBC 10.3 (4.5-11.0) X10^3/uL RBC 4.51 (4.0-5.2) X10^6/uL Hgb 13.9 (12.0-16.0) g/dL Hct 41.5 (36-46) % MCV 92.1 (80-100) fL MCH 30.9 (26-34) PG MCHC 33.6 (30-36) % RDW 12.9 (11.6-14.8) % Plt Count 206 (150-400) X10^3/uL Neut % (Auto) 65.3 (50-75) % Lymph % (Auto) 12.6 L (25-40) % Vermilion % (Auto) 7.5 (3-14) % Eos % (Auto) 14.1 H (2-4) % Baso % (Auto) 0.5 (0-2) % Neut # (Auto) 6700 (2009-8253) /uL Lymph # (Auto) 1300 (8551-1441) /uL [place] # (Auto) 800 (0-900) /uL Eos # (Auto) 1400 H (0-450) /uL Baso # (Auto) 0 (0-100) /uL Sodium 139 (137-145) mmol/L Potassium 4.1 (3.4-5.1) mmol/L Chloride 105 (98-107) mmol/L Carbon Dioxide 25 (22-32) mmol/L BUN 17 (7-17) mg/dL Creatinine 0.61 (0.52-1.04) mg/dL Estimated GFR > 60.0 (>60) mL/min BUN/Creatinine Ratio 27.9 H (6-22) Glucose 120 H (80-110) mg/dL Calcium 9.8 (8.4-10.2) mg/dL Total Bilirubin 0.4 (0.2-1.3) mg/dL AST 24 (14-36) IU/L ALT 25 (<35) IU/L Alkaline Phosphatase 83 (38-126) U/L Total Protein 6.7 (6.3-8.2) g/dL Albumin 4.1 (3.5-5.0) g/dL Globulin 2.6 (1.7-4.1) g/dL Albumin/Globulin Ratio 1.6 (1.0-2.8) Lipase 49 (23-300) U/L Urine Color Urine Appearance Urine pH (4.5-8.0) Ur Specific Edmondson (1.000-1.035) Urine Protein (Negative) Urine Glucose (UA) (Negative) g/dL Urine Ketones (NEGATIVE) Urine Occult Blood (Negative) Urine Nitrate (Negative) Urine Bilirubin (NEGATIVE) Urine Urobilinogen (0.2) E.U./dL Ur Leukocyte Esterase (NEGATIVE) Urine RBC (0-5/HPF) Urine WBC (0-5/HPF) Ur Squamous Epith Cells (0-5/HPF) Urine Bacteria (None) Ur Culture Indicated? Stl C. cayetanensis PCR Not detected (Not Detect) Stool Rotavirus (PCR) Not detected (Not Detect) Stool Adenovirus (PCR) Not detected (Not Detect) Stool Astrovirus (PCR) Not detected (Not Detect) Stool Cryptosporidium PCR Not detected (Not Detect) Stl E.coli Shiga Tox PCR Not detected (Not Detect) St Sh/Enteroin Ecoli PCR Not detected (Not Detect) Stool E coli O157 PCR Not Reportable Stl Enterotoxigenic E PCR Not detected (Not Detect) Stool EPEC (PCR) Not detected (Not Detect) Stl E. histolytica PCR Not detected (Not Detect) Stool Giardia Lamblia PCR Not detected (Not Detect) Stool Sapovirus (PCR) Not detected (Not Detect) Stl P. shigelloides PCR Not detected (Not Detect) St Y.enterocolitica PCR Not detected (Not Detect) Stool Vibrio (PCR) Not detected (Not Detect) Stl Vibrio cholerae PCR Not detected (Not Detect) Stl Enteroaggr Ecoli PCR Not detected (Not Detect) Stl Norovirus GI/GII PCR Not detected (Not Detect) Campylobacter (PCR) Not detected (Not Detect) C. difficile Tox (PCR) Not detected (Not Detect) Salmonella (PCR) Not detected (Not Detect) 12/24/20 Range/Units 07:27 WBC (4.5-11.0) X10^3/uL RBC (4.0-5.2) X10^6/uL Hgb (12.0-16.0) g/dL Hct (36-46) % MCV (80-100) fL MCH (26-34) PG MCHC (30-36) % RDW (11.6-14.8) % Plt Count (150-400) X10^3/uL Neut % (Auto) (50-75) % Lymph % (Auto) (25-40) % Vermilion % (Auto) (3-14) % Eos % (Auto) (2-4) % Baso % (Auto) (0-2) % Neut # (Auto) (2192-7790) /uL Lymph # (Auto) (7215-9362) /uL Vermilion # (Auto) (0-900) /uL Eos # (Auto) (0-450) /uL Baso # (Auto) (0-100) /uL Sodium (137-145) mmol/L Potassium (3.4-5.1) mmol/L Chloride (98-107) mmol/L Carbon Dioxide (22-32) mmol/L BUN (7-17) mg/dL Creatinine (0.52-1.04) mg/dL Estimated GFR (>60) mL/min BUN/Creatinine Ratio (6-22) Glucose (80-110) mg/dL Calcium (8.4-10.2) mg/dL Total Bilirubin (0.2-1.3) mg/dL AST (14-36) IU/L ALT (<35) IU/L Alkaline Phosphatase (38-126) U/L Total Protein (6.3-8.2) g/dL Albumin (3.5-5.0) g/dL Globulin (1.7-4.1) g/dL Albumin/Globulin Ratio (1.0-2.8) Lipase (23-300) U/L Urine Color Yellow Urine Appearance Clear Urine pH 6.0 (4.5-8.0) Ur Specific Edmondson 1.010 (1.000-1.035) Urine Protein Negative (Negative) Urine Glucose (UA) Negative (Negative) g/dL Urine Ketones Negative (NEGATIVE) Urine Occult Blood Negative (Negative) Urine Nitrate Negative (Negative) Urine Bilirubin Negative (NEGATIVE) Urine Urobilinogen 0.2 (0.2) E.U./dL Ur Leukocyte Esterase Negative (NEGATIVE) Urine RBC None seen (0-5/HPF) Urine WBC None seen (0-5/HPF) Ur Squamous Epith Cells 5-10 /hpf H (0-5/HPF) Urine Bacteria None seen (None) Ur Culture Indicated? Cult not indicated Stl C. cayetanensis PCR (Not Detect) Stool Rotavirus (PCR) (Not Detect) Stool Adenovirus (PCR) (Not Detect) Stool Astrovirus (PCR) (Not Detect) Stool Cryptosporidium PCR (Not Detect) Stl E.coli Shiga Tox PCR (Not Detect) St Sh/Enteroin Ecoli PCR (Not Detect) Stool E coli O157 PCR Stl Enterotoxigenic E PCR (Not Detect) Stool EPEC (PCR) (Not Detect) Stl E. histolytica PCR (Not Detect) Stool Giardia Lamblia PCR (Not Detect) Stool Sapovirus (PCR) (Not Detect) Stl P. shigelloides PCR (Not Detect) St Y.enterocolitica PCR (Not Detect) Stool Vibrio (PCR) (Not Detect) Stl Vibrio cholerae PCR (Not Detect) Stl Enteroaggr Ecoli PCR (Not Detect) Stl Norovirus GI/GII PCR (Not Detect) Campylobacter (PCR) (Not Detect) C. difficile Tox (PCR) (Not Detect) Salmonella (PCR) (Not Detect) MDM Narrative Medical decision making narrative: Dr. Soliz GI panel pending. <Enedina Soliz, DO - Last Filed: 12/24/20 18:48> Lab Data Attestation: I reviewed the patient's lab results. Labs: Lab Results 12/24/20 12/24/20 12/24/20 Range/Units 06:17 06:17 06:52 WBC 10.3 (4.5-11.0) X10^3/uL RBC 4.51 (4.0-5.2) X10^6/uL Hgb 13.9 (12.0-16.0) g/dL Hct 41.5 (36-46) % MCV 92.1 (80-100) fL MCH 30.9 (26-34) PG MCHC 33.6 (30-36) % RDW 12.9 (11.6-14.8) % Plt Count 206 (150-400) X10^3/uL Neut % (Auto) 65.3 (50-75) % Lymph % (Auto) 12.6 L (25-40) % Vermilion % (Auto) 7.5 (3-14) % Eos % (Auto) 14.1 H (2-4) % Baso % (Auto) 0.5 (0-2) % Neut # (Auto) 6700 (0731-1189) /uL Lymph # (Auto) 1300 (1938-4103) /uL [place] # (Auto) 800 (0-900) /uL Eos # (Auto) 1400 H (0-450) /uL Baso # (Auto) 0 (0-100) /uL Sodium 139 (137-145) mmol/L Potassium 4.1 (3.4-5.1) mmol/L Chloride 105 (98-107) mmol/L Carbon Dioxide 25 (22-32) mmol/L BUN 17 (7-17) mg/dL Creatinine 0.61 (0.52-1.04) mg/dL Estimated GFR > 60.0 (>60) mL/min BUN/Creatinine Ratio 27.9 H (6-22) Glucose 120 H (80-110) mg/dL Calcium 9.8 (8.4-10.2) mg/dL Total Bilirubin 0.4 (0.2-1.3) mg/dL AST 24 (14-36) IU/L ALT 25 (<35) IU/L Alkaline Phosphatase 83 (38-126) U/L Total Protein 6.7 (6.3-8.2) g/dL Albumin 4.1 (3.5-5.0) g/dL Globulin 2.6 (1.7-4.1) g/dL Albumin/Globulin Ratio 1.6 (1.0-2.8) Lipase 49 (23-300) U/L Urine Color Urine Appearance Urine pH (4.5-8.0) Ur Specific Edmondson (1.000-1.035) Urine Protein (Negative) Urine Glucose (UA) (Negative) g/dL Urine Ketones (NEGATIVE) Urine Occult Blood (Negative) Urine Nitrate (Negative) Urine Bilirubin (NEGATIVE) Urine Urobilinogen (0.2) E.U./dL Ur Leukocyte Esterase (NEGATIVE) Urine RBC (0-5/HPF) Urine WBC (0-5/HPF) Ur Squamous Epith Cells (0-5/HPF) Urine Bacteria (None) Ur Culture Indicated? Stl C. cayetanensis PCR Not detected (Not Detect) Stool Rotavirus (PCR) Not detected (Not Detect) Stool Adenovirus (PCR) Not detected (Not Detect) Stool Astrovirus (PCR) Not detected (Not Detect) Stool Cryptosporidium PCR Not detected (Not Detect) Stl E.coli Shiga Tox PCR Not detected (Not Detect) St Sh/Enteroin Ecoli PCR Not detected (Not Detect) Stool E coli O157 PCR Not Reportable Stl Enterotoxigenic E PCR Not detected (Not Detect) Stool EPEC (PCR) Not detected (Not Detect) Stl E. histolytica PCR Not detected (Not Detect) Stool Giardia Lamblia PCR Not detected (Not Detect) Stool Sapovirus (PCR) Not detected (Not Detect) Stl P. shigelloides PCR Not detected (Not Detect) St Y.enterocolitica PCR Not detected (Not Detect) Stool Vibrio (PCR) Not detected (Not Detect) Stl Vibrio cholerae PCR Not detected (Not Detect) Stl Enteroaggr Ecoli PCR Not detected (Not Detect) Stl Norovirus GI/GII PCR Not detected (Not Detect) Campylobacter (PCR) Not detected (Not Detect) C. difficile Tox (PCR) Not detected (Not Detect) Salmonella (PCR) Not detected (Not Detect) 12/24/20 Range/Units 07:27 WBC (4.5-11.0) X10^3/uL RBC (4.0-5.2) X10^6/uL Hgb (12.0-16.0) g/dL Hct (36-46) % MCV (80-100) fL MCH (26-34) PG MCHC (30-36) % RDW (11.6-14.8) % Plt Count (150-400) X10^3/uL Neut % (Auto) (50-75) % Lymph % (Auto) (25-40) % Vermilion % (Auto) (3-14) % Eos % (Auto) (2-4) % Baso % (Auto) (0-2) % Neut # (Auto) (6125-6614) /uL Lymph # (Auto) (6231-1718) /uL [place] # (Auto) (0-900) /uL Eos # (Auto) (0-450) /uL Baso # (Auto) (0-100) /uL Sodium (137-145) mmol/L Potassium (3.4-5.1) mmol/L Chloride (98-107) mmol/L Carbon Dioxide (22-32) mmol/L BUN (7-17) mg/dL Creatinine (0.52-1.04) mg/dL Estimated GFR (>60) mL/min BUN/Creatinine Ratio (6-22) Glucose (80-110) mg/dL Calcium (8.4-10.2) mg/dL Total Bilirubin (0.2-1.3) mg/dL AST (14-36) IU/L ALT (<35) IU/L Alkaline Phosphatase (38-126) U/L Total Protein (6.3-8.2) g/dL Albumin (3.5-5.0) g/dL Globulin (1.7-4.1) g/dL Albumin/Globulin Ratio (1.0-2.8) Lipase (23-300) U/L Urine Color Yellow Urine Appearance Clear Urine pH 6.0 (4.5-8.0) Ur Specific Edmond[place] 1.010 (1.000-1.035) Urine Protein Negative (Negative) Urine Glucose (UA) Negative (Negative) g/dL Urine Ketones Negative (NEGATIVE) Urine Occult Blood Negative (Negative) Urine Nitrate Negative (Negative) Urine Bilirubin Negative (NEGATIVE) Urine Urobilinogen 0.2 (0.2) E.U./dL Ur Leukocyte Esterase Negative (NEGATIVE) Urine RBC None seen (0-5/HPF) Urine WBC None seen (0-5/HPF) Ur Squamous Epith Cells 5-10 /hpf H (0-5/HPF) Urine Bacteria None seen (None) Ur Culture Indicated? Cult not indicated Stl C. cayetanensis PCR (Not Detect) Stool Rotavirus (PCR) (Not Detect) Stool Adenovirus (PCR) (Not Detect) Stool Astrovirus (PCR) (Not Detect) Stool Cryptosporidium PCR (Not Detect) Stl E.coli Shiga Tox PCR (Not Detect) St Sh/Enteroin Ecoli PCR (Not Detect) Stool E coli O157 PCR Stl Enterotoxigenic E PCR (Not Detect) Stool EPEC (PCR) (Not Detect) Stl E. histolytica PCR (Not Detect) Stool Giardia Lamblia PCR (Not Detect) Stool Sapovirus (PCR) (Not Detect) Stl P. shigelloides PCR (Not Detect) St Y.enterocolitica PCR (Not Detect) Stool Vibrio (PCR) (Not Detect) Stl Vibrio cholerae PCR (Not Detect) Stl Enteroaggr Ecoli PCR (Not Detect) Stl Norovirus GI/GII PCR (Not Detect) Campylobacter (PCR) (Not Detect) C. difficile Tox (PCR) (Not Detect) Salmonella (PCR) (Not Detect) [facility] Narrative Medical decision making narrative: This is a 65-year-old female comes emergency department with complaint of diarrhea for the past 5 days with no other symp toms. Patient has not noticed any bright red blood or melena. She is on anticoagulation. Patient's stool was evaluated and sent for GI panel which is negative today. Patient has not had any known infectious sources. Patient has been afebrile, she is nontender with no abdominal pain besides some cramping just before she has a bowel movement. Patient has not had any nausea or vomiting. Discussed with patient this time I would defer imaging and exposure to radiation she is having diarrhea without other symptoms but we did discuss that if she has any stool color changes that might indicate a GI bleed she should come back for re-evaluation and otherwise follow up with her primary care if it continues. We did discuss that she may need a colonoscopy ultimately if she continues to have symptoms. We also discussed that she can try Imodium in the short term to see if this is helpful for her symptoms. Discharge Plan Departure Patient Disposition: Home Clinical Impression: Diarrhea Instructions: Diarrhea Activity Restrictions/Additional Instructions: Follow up with your physician for recheck in the next several days call for an appointment on Saturday morning. You may take immodium as directed for diarrhea. Make sure to drink plenty of fluids to stay hydrated. Your stool today was tested for C Diff as well as multiple other infectious causes of diarrhea and was negative today. Please return for fevers greater 100.4 F, new or worsening abdominal pain, lightheadedness or passing out, persistent vomiting, black or bloody stools or other new or concerning symptoms. Prescriptions: No Action cyclobenzaprine 10 mg tablet See Rx Instructions PO TID PRN (Reason: muscle spasm) Qty: 20 RF: 0 atorvastatin [Lipitor] 10 mg tablet 10 mg PO BEDTIME Qty: 90 RF: 3 levothyroxine [Synthroid] 50 mcg tablet 50 mcg PO DAILY Qty: 90 RF: 3 Xarelto 10 mg tablet 10 mg PO DAILY RF: 0 metoprolol succinate 25 mg tablet extended release 24 hr 25 mg PO DAILY Qty: 90 RF: 0 CMP Estriol Vaginal Cream 0.2% See Rx Instructions .ROUTE .COMPLEX Qty: 30 RF: 6 levocetirizine 5 mg Tablet 5 mg PO DAILY RF: 0 betamethasone dipropionate 0.05 % cream 1 applic TOPICAL DAILY RF: 0 acetaminophen 325 mg Tablet 650 mg PO Q6H PRN (Reason: pain) RF: 0 (DME) Resmed Aircurve 10 BIPAP Qty: 1 RF: 0 Referrals: Carly Kong DO [Primary Care Provider] -
[2020-12-24] MEDS: SODIUM CHLORIDE 0.9% 1,000 ML 1000 ML IV (06:24)
[2020-12-24] MEDS: ONDANSETRON 4 MG/2 ML INJ IV (06:24)
[2020-12-24 06:27] LABS: Add Manual Diff / Slide Review NO; Basophils Absolute Auto 0 /uL (0-100); Basophils Percent Auto 0.5 % (0-2); Eosinophils Absolute Auto 1400 /uL (0-450); Eosinophils Percent Auto 14.1 % (2-4); Hematocrit 41.5 % (36-46); Hemoglobin 13.9 g/dL (12.0-16.0); Lymphocytes Absolute Auto 1300 /uL (1100-4500); Lymphocytes Percent Auto 12.6 % (25-40); Mean Corpuscular HGB Conc 33.6 % (30-36); Mean Corpuscular Hemoglobin 30.9 PG (26-34); Mean Corpuscular Volume 92.1 fL (80-100); Monocytes Absolute Auto 800 /uL (0-900); Monocytes Percent Auto 7.5 % (3-14); Neutrophils Absolute Auto 6700 /uL (1500-7000); Neutrophils Percent Auto 65.3 % (50-75); Platelet Count 206 X10^3/uL (150-400); Red Blood Cell Count 4.51 X10^6/uL (4.0-5.2); Red Cell Distribution Width 12.9 % (11.6-14.8); White Blood Cell Count 10.3 X10^3/uL (4.5-11.0)
[2020-12-24 06:35] VITALS: PULSE 81; O2SAT 97
[2020-12-24 06:36] LABS: Alanine Aminotransferase 25 IU/L (<35); Albumin 4.1 g/dL (3.5-5.0); Albumin Globulin Ratio 1.6 (1.0-2.8); Alkaline Phosphatase 83 U/L (38-126); Aspartate Aminotransferase 24 IU/L (14-36); BUN Creatinine Ratio 27.9 (6-22); Bilirubin Total 0.4 mg/dL (0.2-1.3); Blood Urea Nitrogen 17 mg/dL (7-17); Calcium 9.8 mg/dL (8.4-10.2); Carbon Dioxide 25 mmol/L (22-32); Chloride 105 mmol/L (98-107); Estimated Glomerular Filt Rate > 60.0 mL/min (>60); Globulin 2.6 g/dL (1.7-4.1); Glucose 120 mg/dL (80-110); HEMOLYSIS 42 (0-50); Lipase 49 U/L (23-300); Potassium 4.1 mmol/L (3.4-5.1); Sodium 139 mmol/L (137-145); Total Protein 6.7 g/dL (6.3-8.2)
[2020-12-24 07:00] VITALS: BP 125/60; PULSE 85; O2SAT 97
[2020-12-24 07:30] VITALS: BP 120/63; PULSE 78; O2SAT 98
[2020-12-24 07:37] LABS: Appearance Urine UA CLEAR; Bacteria Urine None Seen; Bilirubin Urine UA NEGATIVE (NEGATIVE); Color Urine UA YELLOW; Glucose Urine UA NEGATIVE (Negative); Ketones Urine UA NEGATIVE (NEGATIVE); Leukocyte Esterase Urine UA NEGATIVE (NEGATIVE); Nitrite Urine UA NEGATIVE (Negative); Occult Blood Urine UA NEGATIVE (Negative); Protein Urine UA NEGATIVE (Negative); RBC Urine None Seen (0-5/HPF); Urobilinogen Urine UA 0.2 E.U./dL (0.2); WBC Urine None Seen (0-5/HPF)
[2020-12-24 07:58] LABS: Culture Indicated Urine Cult Not Indicated; Squamous Epithelial Cell Urine 5-10 /HPF (0-5/HPF)
[2020-12-24 08:00] VITALS: BP 128/63; PULSE 84; O2SAT 99
[2020-12-24 08:11] LABS: Adenovirus F 40/41 Not Detected (Not Detect); Astrovirus Not Detected (Not Detect); Campylobacter Not Detected (Not Detect); Clostridium difficile toxin AB Not Detected (Not Detect); Cryptosporidium Not Detected (Not Detect); Cyclospora cayetanensis Not Detected (Not Detect); Entamoeba histolytica Not Detected (Not Detect); Enteroaggregative E.coli Not Detected (Not Detect); Enteropathogenic E.coli Not Detected (Not Detect); Enterotoxigenic E.coli It/st Not Detected (Not Detect); Giardia lamblia Not Detected (Not Detect); Norovirus GI/GII Not Detected (Not Detect); Plesiomonsa shigelloides Not Detected (Not Detect); Rotavirus A Not Detected (Not Detect); Salmonella Not Detected (Not Detect); Sapovirus Not Detected (Not Detect); Shiga-like toxin-prod E.coli Not Detected (Not Detect); Shigella/Enteroinvasive E.coli Not Detected (Not Detect); Vibrio Not Detected (Not Detect); Vibrio cholerae Not Detected (Not Detect); Yersinia enterocolitica Not Detected (Not Detect)
[2020-12-24 08:38] VITALS: BP 139/63; PULSE 77; O2SAT 98
== END 2020-12-24 08:46 | disposition home or self-care (01) ==
PROVIDERS: Emergency Medicine; Emergency Provider Emergency Medicine; PCP Family Medicine
DX: R19.7 Diarrhea, unspecified (principal)
CPT/HCPCS: 36415; 80053; 81001; 83690; 85025; 87507; 96361; 96374; 99284; J2405

== ENCOUNTER → 2020-12-26 15:57 | Outpatient (CLI) | payer MEDICARE, OTHER, SELFPAY ==
--- NOTE | 2020-12-26 15:59 | DI.CT.S_ITS ---
PROCEDURE: CT ABDOMEN PELVIS WO CON INDICATIONS: diarrhea TECHNIQUE: Noncontrast 5 mm thick sections acquired from the diaphragms to the symphysis. 5 mm coronal and sagittal reformats were then performed. For radiation dose reduction, the following was used: automated exposure control, adjustment of mA and/or kV according to patient size. COMPARISON: None. FINDINGS: ABDOMEN: Lung bases: Normal. Heart: No significant findings. Liver: Normal. Gallbladder: Layering sludge noted within the gallbladder without gallbladder wall thickening or other pericholecystic inflammatory changes. Bile ducts: Normal. Pancreas: Normal. Spleen: Normal. Adrenals: Normal. Kidneys: Punctate left renal calculus. No hydronephrosis. Stomach: Normal. Bowel: Incidental colonic diverticulosis. There is diffuse moderate stool. Appendix is normal. Mildly dilated small bowel loops with scattered air-fluid levels. A specific transition point is not well identified. Other: No free fluid or air. Abdominal nodes: Normal. Aorta and IVC: Normal in size. Scattered vascular calcifications seen throughout the aorta. Ventral wall: Normal. PELVIS: Bladder: Normal. Inguinal: No hernia. Pelvic nodes: Normal. Bones: Spondylytic changes and facet arthropathy. No vertebral body compression fracture. IMPRESSION: Mildly prominent small bowel loops, with scattered air-fluid levels. This could represent early or developing partial bowel obstruction, enteritis or malabsorption. Please correlate clinically. No specific transition point seen at this time although if the patient's symptoms do not improve, continued surveillance with abdominal series radiographs could be performed. Nonobstructive punctate left renal calculus Gallbladder sludge Normal appearance of the appendix. Incidental colonic diverticulosis Dictated by: Portillo Goff M.D. on 12/26/2020 at 16:35 Approved by: Portillo Goff M.D. on 12/26/2020 at 16:43
== END ==
PROVIDERS: PCP Family Medicine; Referring Provider Family Medicine; Visit Provider Family Medicine
DX: R19.7 Diarrhea, unspecified (principal); K82.8 Other specified diseases of gallbladder; N20.0 Calculus of kidney; K57.90 Diverticulosis of intestine, part unspecified, without perforation or abscess without bleeding; Z83.79 Family history of other diseases of the digestive system
CPT/HCPCS: 36415; 74176; 80048; 82784; 83516

== ENCOUNTER → 2020-12-26 16:18 | Outpatient (CLI) | payer MEDICARE, OTHER, SELFPAY ==
[2020-12-26 18:15] LABS: BUN Creatinine Ratio 19.4 (6-22); Blood Urea Nitrogen 12 mg/dL (7-17); Calcium 9.7 mg/dL (8.4-10.2); Carbon Dioxide 30 mmol/L (22-32); Chloride 103 mmol/L (98-107); Estimated Glomerular Filt Rate > 60.0 mL/min (>60); Glucose 96 mg/dL (80-110); HEMOLYSIS < 15 (0-50); Potassium 3.5 mmol/L (3.4-5.1); Sodium 140 mmol/L (137-145)
[2020-12-27 16:59] LABS: Deamidated Gliadin Ab IgA 2 units (0-19); Deamidated Gliadin Ab IgG 1 units (0-19); Immunoglobulin A,Qn 87 mg/dL (87-352); t-Transglutaminase IgA <2 U/mL (0-3)
== END ==
PROVIDERS: PCP Family Medicine; Referring Provider Family Medicine; Visit Provider Family Medicine
DX: R19.7 Diarrhea, unspecified (principal); Z83.79 Family history of other diseases of the digestive system
CPT/HCPCS: 36415; 80048; 82784; 83516

== ENCOUNTER → 2020-12-27 10:44 | Outpatient (CLI) | payer MEDICARE, OTHER, SELFPAY ==
--- NOTE | 2020-12-27 10:47 | DI.RAD.S_ITS ---
PROCEDURE: XR ACUTE ABDOMEN SERIES INDICATIONS: abd pain, diarrhea, sbo? on ct TECHNIQUE: One view chest and two views of the abdomen were acquired. COMPARISON: None. FINDINGS: Surgical changes and devices: None. Chest: Lungs are clear. Heart size is normal. No pleural effusions. No pneumoperitoneum. Abdomen: Bowel gas pattern is normal. No suspicious calcifications. Visualized solid organ contours appear normal. Bones: No suspicious bony lesions. IMPRESSION: Nonspecific bowel gas pattern. No subdiaphragmatic free air found. No sign of large or small bowel obstruction by plain film imaging. CT may become necessary, however. Dictated by: Dickson Hernandez M.D. on 12/27/2020 at 11:46 Approved by: Dickson Hernandez M.D. on 12/27/2020 at 11:47
== END ==
PROVIDERS: PCP Family Medicine; Referring Provider Family Medicine; Visit Provider Family Medicine
DX: K56.609 Unspecified intestinal obstruction, unspecified as to partial versus complete obstruction (principal); R10.9 Unspecified abdominal pain; R19.7 Diarrhea, unspecified
CPT/HCPCS: 74022

== ENCOUNTER → 2021-04-03 15:11 | Outpatient (CLI) | payer MEDICARE, OTHER, SELFPAY ==
[2021-04-03 17:51] LABS: COVID19 -Nasal RAPID Negative (Negative)
== END ==
PROVIDERS: PCP Family Medicine; Visit Provider Nurse Practitioner
DX: J02.9 Acute pharyngitis, unspecified (principal); R05 Cough; Z20.822 Contact with and (suspected) exposure to COVID-19
CPT/HCPCS: 87635

== ENCOUNTER → 2022-01-29 12:55 | Outpatient (CLI) | payer MEDICARE, OTHER, SELFPAY ==
--- NOTE | 2022-01-29 12:57 | DI.MG.S_ITS ---
BILATERAL DIGITAL SCREENING MAMMOGRAM 3D/2D WITH CAD: 01/29/2022 CLINICAL: Routine screening. Comparison is made to exams dated: 10/20/2020 mammogram, 12/07/2017 mammogram, and 01/19/2016 mammogram - [facility]. There are scattered fibroglandular elements in both breasts. Current study was also evaluated with a Computer Aided Detection (CAD) system. No significant masses, calcifications, or other findings are seen in either breast. There has been no significant interval change. IMPRESSION: NEGATIVE There is no mammographic evidence of malignancy. A 1 year screening mammogram is recommended. This exam was interpreted at Station ID: [id number]. NOTE: For mammograms, a report in lay terms will be sent to the patient. Approximately 15% of breast malignancies will not be visualized mammographically. In the management of a palpable breast mass, a negative mammogram must not discourage biopsy of a clinically suspicious lesion. Electronically Signed By: Angel [email or web address]:01/29/2022 13:31:43 letter sent: Normal Exam ACR BI-RADS Category 1: Negative [id number]
== END ==
PROVIDERS: PCP Family Medicine; Referring Provider Family Medicine; Visit Provider Family Medicine
DX: Z12.31 Encounter for screening mammogram for malignant neoplasm of breast (principal)
CPT/HCPCS: 77063; 77067

== ENCOUNTER 2022-05-31 13:24 | Observation (INO) | payer MEDICARE, OTHER, SELFPAY ==
--- NOTE | 2022-05-31 | DI.ECHO.S_ITS ---
[facility]---------+ [facility] +---------+ : : [address] [place] : : : : [id number] : : : : Phone: [phone]+ Echocardiogram Report + + :Name: ANNA COREAS Study Date: 06/01/2022 Height: 60 in : :[facility] ReadingLocation: Weight: 185 lb : : Gender: Female BSA: 1.8 m2 : :: 1955 Age: 66 yrs BP: 136/82 mmHg: :Reason For Study: TIA : :Ordering Physician: Joseph, : :Rahul Performed By: Josue Carpenter : :Referring: Rahul Ruiz : + + Interpretation Summary The left ventricle is normal in size. The left ventricle is hyperdynamic. The ejection fraction is estimated to be 70-75%. No LV thrombus. No significant LV outflow tract obstruction. The right ventricle is normal in size and function. No significant valvular pathology seen. The IVC is of normal diameter and collapses greater than 50% with a sniff. This suggests a low right atrial pressure of 3 mm Hg. Injection of contrast documented no interatrial shunt. In comparison to previous study, LV function is more hyperdynamic. Procedure: A two-dimensional transthoracic echocardiogram with color flow and Doppler was performed. The study quality was technically difficult. Comparison is made with the echocardiogram of 05/20/2014. A saline contrast injection was performed to assess for cardiac shunting. A contrast injection of Definity was performed to improve assessment of LV function. The patient was in normal sinus rhythm during the exam. Left Ventricle: The left ventricle is normal in size. Proximal septal thickening is noted. There is no echo evidence for significant left ventricular outflow tract obstruction. There is no thrombus. The ejection fraction is estimated to be 70-75%. The left ventricle is hyperdynamic. There are no focal wall motion abnormalities. Diastolic parameters suggest a relaxation abnormality of the left ventricle, consistent with probable normal filling pressures. Right Ventricle: The right ventricle is normal in size and function. Atria: Both atria are normal in size. Both atria have remained unchanged in size since the prior echo exam. The interatrial septum grossly appears intact with no obvious evidence for an atrial septal defect. Injection of contrast documented no interatrial shunt. Mitral Valve: There is mild mitral annular calcification. There is no mitral regurgitation noted. Aortic Valve: The aortic valve is normal in structure and function. The aortic valve is trileaflet. There is no aortic valve stenosis. There is trace aortic regurgitation. Tricuspid Valve: The tricuspid valve is not well visualized, but is grossly normal. No tricuspid regurgitation. Pulmonary artery pressures cannot be estimated because of the lack of a measurable TR jet velocity. Pulmonic Valve: The pulmonic valve is not well seen, but is grossly normal. There is a trace or physiologic amount of pulmonic regurgitation. Great Vessels: The aortic root is normal size. The dimensions of the ascending aorta are normal. The IVC is of normal diameter and collapses greater than 50% with a sniff. This suggests a low right atrial pressure of 3 mm Hg. Pericardium/ Pleura There is no pericardial effusion. There is no pleural effusion. MMode/2D Measurements & Calculations LVIDd: 4.8 cm LVOT diam: 2.1 cm LVIDs: 2.9 cm Ao root diam: 3.2 cm FS: 39.1 % asc Aorta Diam: 3.1 cm IVSd: 0.93 cm LVPWd: 0.80 cm LV yoder. diameter/BSA (cm/m^2): 2.7 LV sys. diameter/BSA (cm/m^2): 1.6 LA A2 area: 14.5 cm2 RA long axis: 4.5 cm LA A4 area: 16.9 cm2 RA area: 10.6 cm2 LA length (vol): 5.0 cm RA vol: 21.2 ml LA vol: 41.6 ml RA : 11.7 ml/m2 LA vol index: 23.0 ml/m2 TAPSE: 1.9 cm Doppler Measurements & Calculations Ao V2 max: 137.3 cm/sec LVOT Max Khoa: 126.5 cm/sec Ao V2 mean: 103.4 cm/sec LV V1 max P.4 mmHg Ao max P.5 mmHg LV V1 VTI: 24.4 cm Ao mean P.6 mmHg CAMMIE(I,D): 3.5 cm2 Ao V2 VTI: 23.8 cm CAMMIE(V,D): 3.1 cm2 sev ratio: 1.0 CAMMIE indexed to BSA (cm^2/m^2): 1.9 MV E max khoa: 47.2 cm/sec SV(LVOT): 83.1 ml MV A max khoa: 88.6 cm/sec MV E/A: 0.53 Med Peak E' Khoa: 5.0 cm/sec E/E' med: 9.4 Lat Peak E' Khoa: 6.2 cm/sec E/E' lat: 7.6 E/e' average: 8.5 MV dec time: 0.33 sec Reading Physician:11:05 AM
[2022-05-31 13:40] VITALS: BP 175/87; PULSE 98; RESP 15; TEMP 36.7; O2SAT 98; BMI 36.1
--- NOTE | 2022-05-31 13:58 | ED_ITS ---
HPI - Neuro Symptoms/Deficit <Fantasma Negrete PA-C - Last Filed: 05/31/22 17:15> General Chief Complaint: Neuro Symptoms/Deficit Stated Complaint: Omicron booster last night, Rt side of face numb Time Seen by Provider: 05/31/22 13:46 Source: patient Mode of arrival: Ambulatory History of Present Illness HPI Narrative: This is a 66-year-old female presenting to the emergency department due to reported right-sided facial numbness as well as generalized weakness yesterday evening lasting approximately 10 minutes. Patient states that this began after receiving the omicron booster roughly 3 hours before that. States that she has no prior history of CVA or TIA but states that mother has a history of TIA. Patient is also on blood thinners due to history of pulmonary embolism after bilateral knee surgeries. Also has a history of high blood pressure. Denies any symptoms currently but states she ?feels weird?. On Anticoagulants: Yes (xarelto) Related Data Home Medications Medication Instructions Recorded Confirmed acetaminophen 325 mg tablet 650 mg PO Q6H PRN pain 08/18/19 05/31/22 rivaroxaban 10 mg tablet (Xarelto) 10 mg PO DAILY 07/20/20 05/31/22 Previous Rx's Medication Instructions Recorded atorvastatin 40 mg tablet (Lipitor) 40 mg PO BEDTIME #90 tabs 06/05/22 cyclobenzaprine 5 mg tablet 5 mg PO BEDTIME #90 tabs 06/05/22 levothyroxine 50 mcg tablet 50 mcg PO DAILY Hypothyrodisim #90 06/05/22 (Synthroid) tabs losartan 25 mg tablet 25 mg PO DAILY #90 tabs 06/05/22 Allergies Allergy/AdvReac Type Severity Reaction Status Date / Time diazepam Allergy Severe eyes Verified 05/31/22 13:45 swelled shut, hard to breath epinephrine Allergy Severe SEIZURES Verified 05/31/22 13:45 clindamycin Allergy Mild RASH Verified 05/31/22 13:45 doxycycline Allergy Unknown RASH Verified 05/31/22 13:45 azithromycin AdvReac Unknown THROW UP Verified 05/31/22 13:45 Review of Systems <Fantasma Negrete PA-C - Last Filed: 05/31/22 17:15> Review of Systems Narrative: GENERAL: Denies chills, fatigue, malaise, fever, sweats. HEENT: Denies sinus pain, ear pain, sore throat, difficulty swallowing, dizziness. RESPIRATORY: Denies dyspnea, cough, wheezing, hemoptysis, sputum. CARDIOVASCULAR: Denies chest pain, palpitations, orthopnea, edema, GASTROINTESTINAL: Denies nausea, vomiting, abdominal pain, diarrhea, constipation, melena. : Denies dysuria, frequency, incontinence, hematuria, urinary retention. MUSCULOSKELETAL: denies weakness, joint pain, or bony pain SKIN: Denies rash, skin lesions, or other NEUROLOGIC: Denies weakness, headache, numbness, change in speech, confusion, seizures, incoordination. PSYCHIATRIC: No concerning psychosocial issues. 12 point review of systems is negative except for those stated above Hematologic/Lymphatic On Anticoagulants: Yes (xarelto) Patient History <Fantasma Negrete PA-C - Last Filed: 05/31/22 17:15> Medical History (Updated 06/05/22 @ 12:17 by MARIBEL Saavedra) Abnormal Pap smear of cervix Acne (1969) Anaphylactic reaction DVT (deep venous thrombosis) (~2013) DVT of axillary vein, chronic left Eczema Enteritis Fibroids Gastro-esophageal reflux disease with esophagitis Hayfever (1966) Hepatitis B (~1976) History of ovarian cyst History of torn meniscus of left knee (2012) Hyperlipidemia Hypothyroidism (2009) Infertility Irritable larynx syndrome Lichen planus Measles Mumps Obesity (BMI 30-39.9) Obstructive sleep apnea of adult Osteoarthritis Osteoarthritis of right knee PCOS (polycystic ovarian syndrome) (1974) Plantar warts Postoperative pulmonary embolism (2013) Retinal detachment, left (2010) Retinal detachment, right (2011) Rosacea (2008) Schatzki's ring of distal esophagus (~03/20/21) Sensorineural hearing loss, bilateral Shoulder pain Sleep apnea (~2015) Subungual hematoma of great toe Surgical History Anesthesia History of eye surgery (02/27/11) History of eye surgery (05/15/12) History of knee replacement (05/13/14) History of sinus surgery (1987) History of surgical removal of meniscus of knee (09/03/13) History of tonsillectomy (1964) Status post delivery (12/1984) Status post delivery (06/1981) Status post endometrial ablation (2005) Status post loop electrosurgical excision procedure (LEEP) of cervix (01/2006) Status post surgical removal of neoplasm of skin (1957) Family History Father Heart disease Mother Osteoporosis Stroke Celiac disease Glaucoma COPD (chronic obstructive pulmonary disease) Emphysema lung Sister Age: 63 Alcoholic Drug abuse Hepatitis C Son No problems noted. Son [id number] transgender person PCOS (polycystic ovarian syndrome) Social History household members: spouse Smoking Status: Never smoker alcohol intake: current Smoking Status: Never smoker alcohol intake frequency: holidays/special occasions only Substance Use Type: does not use Exam <Fantasma Nergete PA-C - Last Filed: 05/31/22 17:15> Narrative Exam Narrative: GENERAL: Well-developed patient, in mild distress. HEAD: Atraumatic. Normocephalic. EYES: Pupils equal round and reactive. Extraocular motions intact. No scleral icterus. No injection or drainage. ENT: Nose without bleeding, purulent drainage. Throat without erythema, tonsillar hypertrophy or exudate. Airway patent. NECK: Trachea midline. Non tender CARDIOVASCULAR: Regular rate and rhythm without murmurs, gallops, or rubs. RESPIRATORY: Clear to auscultation. Breath sounds equal bilaterally. No wheezes, rales, or rhonchi. GASTROINTESTINAL: Abdomen soft, non-tender, nondistended. EXTREMITIES: No edema or joint tenderness. BACK: Nontender without deformity or crepitance. No flank tenderness. NEURO: AOx3. Cranial nerves 2-12 intact SKIN: No rash or erythema of visible areas Initial Vital Signs Initial Vital Signs: Vital Signs Temperature 98.1 F 05/31/22 13:40 Pulse Rate 98 H 05/31/22 13:40 Respiratory Rate 15 05/31/22 13:40 Blood Pressure 175/87 H 05/31/22 13:40 Pulse Oximetry 98 05/31/22 13:40 Oxygen Delivery Method 05/31/22 13:40 <Camacho Her MD - Last Filed: 06/13/22 22:24> Initial Vital Signs Initial Vital Signs: Vital Signs Temperature 98.1 F 05/31/22 13:40 Pulse Rate 98 H 05/31/22 13:40 Respiratory Rate 15 05/31/22 13:40 Blood Pressure 175/87 H 05/31/22 13:40 Pulse Oximetry 98 05/31/22 13:40 Oxygen Delivery Method 05/31/22 13:40 Course <Fantasma Negrete PA-C - Last Filed: 05/31/22 17:15> Orders Ordered: Discontinued Medications Acetaminophen (Acetaminophen 325 Mg Tablet) 650 mg PO Q6H PRN PRN Reason: pain Atorvastatin Calcium (Atorvastatin 20 Mg Tablet) 10 mg PO BEDTIME [facility] Atorvastatin Calcium (Atorvastatin 20 Mg Tablet) 40 mg PO BEDTIME [facility] Last Admin: 05/31/22 21:14 Dose: 40 mg Documented By: JEANNE Cyclobenzaprine HCl (Cyclobenzaprine 10 Mg Tablet) 5 mg PO BEDTIME [facility] Last Admin: 05/31/22 21:14 Dose: 5 mg Documented By: JEANNE Hydroxyzine Pamoate (Hydroxyzine Pamoate 25 Mg Capsule) 50 mg PO 1715 [facility] Last Admin: 05/31/22 17:11 Dose: 50 mg Documented By: RAMIN Labetalol HCl (Labetalol 20 Mg/4 Ml Syringe) 10 mg IV Q5H PRN PRN Reason: SBP >220 or DBP >110 Levothyroxine Sodium (Levothyroxine 50 Mcg Tablet) 50 mcg PO DAILY [facility] Last Admin: 06/01/22 08:09 Dose: 50 mcg Documented By: SHEILA Loratadine (Loratadine 10 Mg Tablet) 10 mg PO DAILY [facility] Last Admin: 06/01/22 08:16 Dose: Not Given Documented By: SHEILA Metoprolol Succinate (Metoprolol Er 25 Mg Tablet) 0 mg PO .COMPLEX [facility] Metoprolol Succinate (Metoprolol Er 25 Mg Tablet) 25 mg PO DAILY [facility] Last Admin: 06/01/22 08:09 Dose: 25 mg Documented By: SHEILA Polyethylene Glycol (Polyethylene Glycol 3350 17 Gm Powd.Pack) 17 gm PO DAILY PRN PRN Reason: Constipation Rivaroxaban (Rivaroxaban 10 Mg Tablet) 10 mg PO DAILY [facility] Last Admin: 06/01/22 08:09 Dose: 10 mg Documented By: SHEILA Sennosides (Sennosides 8.6 Mg Tablet) 8.6 mg PO BID PRN PRN Reason: Constipation Sodium Chloride (Sodium Chloride 0.9% Flush) 10 ml IV PRN PRN PRN Reason: Flush Sodium Chloride (Sodium Chloride 0.9% Flush) 10 ml IV BID [facility] Last Admin: 06/01/22 08:15 Dose: 10 ml Documented By: Admin: 05/31/22 21:14 Dose: 10 ml Documented By: JEANNE Vital Signs Vital signs: Vital Signs - 8 hr 05/31/22 13:40 05/31/22 15:51 Temperature 98.1 F Pulse Rate 98 H 87 Respiratory Rate 15 16 Blood Pressure 175/87 H 192/87 H Pulse Oximetry 98 99 Oxygen Delivery Method Room Air Room Air <Camacho Her MD - Last Filed: 06/13/22 22:24> Orders Ordered: Discontinued Medications Acetaminophen (Acetaminophen 325 Mg Tablet) 650 mg PO Q6H PRN PRN Reason: pain Atorvastatin Calcium (Atorvastatin 20 Mg Tablet) 10 mg PO BEDTIME [facility] Atorvastatin Calcium (Atorvastatin 20 Mg Tablet) 40 mg PO BEDTIME [facility] Last Admin: 05/31/22 21:14 Dose: 40 mg Documented By: JEANNE Cyclobenzaprine HCl (Cyclobenzaprine 10 Mg Tablet) 5 mg PO BEDTIME [facility] Last Admin: 05/31/22 21:14 Dose: 5 mg Documented By: JEANNE Hydroxyzine Pamoate (Hydroxyzine Pamoate 25 Mg Capsule) 50 mg PO 1715 [facility] Last Admin: 05/31/22 17:11 Dose: 50 mg Documented By: RAMIN Labetalol HCl (Labetalol 20 Mg/4 Ml Syringe) 10 mg IV Q5H PRN PRN Reason: SBP >220 or DBP >110 Levothyroxine Sodium (Levothyroxine 50 Mcg Tablet) 50 mcg PO DAILY [facility] Last Admin: 06/01/22 08:09 Dose: 50 mcg Documented By: SHEILA Loratadine (Loratadine 10 Mg Tablet) 10 mg PO DAILY [facility] Last Admin: 06/01/22 08:16 Dose: Not Given Documented By: SHEILA Metoprolol Succinate (Metoprolol Er 25 Mg Tablet) 0 mg PO .COMPLEX [facility] Metoprolol Succinate (Metoprolol Er 25 Mg Tablet) 25 mg PO DAILY [facility] Last Admin: 06/01/22 08:09 Dose: 25 mg Documented By: SHEILA Polyethylene Glycol (Polyethylene Glycol 3350 17 Gm Powd.Pack) 17 gm PO DAILY PRN PRN Reason: Constipation Rivaroxaban (Rivaroxaban 10 Mg Tablet) 10 mg PO DAILY [facility] Last Admin: 06/01/22 08:09 Dose: 10 mg Documented By: SHEILA Sennosides (Sennosides 8.6 Mg Tablet) 8.6 mg PO BID PRN PRN Reason: Constipation Sodium Chloride (Sodium Chloride 0.9% Flush) 10 ml IV PRN PRN PRN Reason: Flush Sodium Chloride (Sodium Chloride 0.9% Flush) 10 ml IV BID [facility] Last Admin: 06/01/22 08:15 Dose: 10 ml Documented By: Admin: 05/31/22 21:14 Dose: 10 ml Documented By: JEANNE Vital Signs Vital signs: Vital Signs - 8 hr 05/31/22 13:40 05/31/22 15:51 Temperature 98.1 F Pulse Rate 98 H 87 Respiratory Rate 15 16 Blood Pressure 175/87 H 192/87 H Pulse Oximetry 98 99 Oxygen Delivery Method Room Air Room Air MDM - Neuro Symptoms/Deficit <Fantasma Negrete PA-C - Last Filed: 05/31/22 17:15> Lab Data Result diagrams: 06/01/22 04:06 06/01/22 04:06 Labs: Lab Results 05/31/22 05/31/22 05/31/22 Range/Units 13:56 14:53 14:53 WBC 6.3 (4.5-11.0) X10^3/uL RBC 4.47 (4.0-5.2) X10^6/uL Hgb 13.6 (12.0-16.0) g/dL Hct 40.9 (36-46) % MCV 91.5 (80-100) fL MCH 30.5 (26-34) PG MCHC 33.4 (30-36) % RDW 13.0 (11.6-14.8) % Plt Count 212 (150-400) X10^3/uL Neut % (Auto) 74.5 (50-75) % Lymph % (Auto) 11.8 L (25-40) % [place] % (Auto) 9.6 (3-14) % Eos % (Auto) 3.3 (2-4) % Baso % (Auto) 0.8 (0-2) % Neut # (Auto) 4700 (5939-8824) /uL Lymph # (Auto) 700 L (1279-3872) /uL [place] # (Auto) 600 (0-900) /uL Eos # (Auto) 200 (0-450) /uL Baso # (Auto) 100 (0-100) /uL Sodium 139 (137-145) mmol/L Potassium 4.0 (3.4-5.1) mmol/L Chloride 101 (98-107) mmol/L Carbon Dioxide 28 (22-32) mmol/L BUN 19 H (7-17) mg/dL Creatinine 0.77 (0.52-1.04) mg/dL Estimated GFR > 60 (>60) mL/min BUN/Creatinine Ratio 24.7 H (6-22) Glucose 106 (80-110) mg/dL Hemoglobin A1c (4.0-6.0) % Calcium 9.2 (8.4-10.2) mg/dL Magnesium (1.6-2.3) mg/dL Total Bilirubin 0.5 (0.2-1.3) mg/dL AST 26 (14-36) IU/L ALT 42 H (<35) IU/L Alkaline Phosphatase 65 (38-126) U/L Total Creatine Kinase 65 (30-135) U/L CK-MB (CK-2) TNP CK-MB (CK-2) Rel Index TNP Troponin I < 0.012 (0.01-0.034) ng/mL Total Protein 7.3 (6.3-8.2) g/dL Albumin 4.5 (3.5-5.0) g/dL Globulin 2.8 (1.7-4.1) g/dL Albumin/Globulin Ratio 1.6 (1.0-2.8) Triglycerides (35-150) mg/dL Cholesterol (140-199) mg/dL LDL Cholesterol, Calc (<100) mg/dL HDL Cholesterol (40-60) mg/dL TSH (0.47-4.68) uIU/mL SARS-CoV-2 (PCR) (Negative) 05/31/22 05/31/22 05/31/22 Range/Units 14:53 14:53 14:53 WBC (4.5-11.0) X10^3/uL RBC (4.0-5.2) X10^6/uL Hgb (12.0-16.0) g/dL Hct (36-46) % MCV (80-100) fL MCH (26-34) PG MCHC (30-36) % RDW (11.6-14.8) % Plt Count (150-400) X10^3/uL Neut % (Auto) (50-75) % Lymph % (Auto) (25-40) % [place] % (Auto) (3-14) % Eos % (Auto) (2-4) % Baso % (Auto) (0-2) % Neut # (Auto) (6239-8512) /uL Lymph # (Auto) (2667-6888) /uL [place] # (Auto) (0-900) /uL Eos # (Auto) (0-450) /uL Baso # (Auto) (0-100) /uL Sodium (137-145) mmol/L Potassium (3.4-5.1) mmol/L Chloride (98-107) mmol/L Carbon Dioxide (22-32) mmol/L BUN (7-17) mg/dL Creatinine (0.52-1.04) mg/dL Estimated GFR (>60) mL/min BUN/Creatinine Ratio (6-22) Glucose (80-110) mg/dL Hemoglobin A1c 6.0 (4.0-6.0) % Calcium (8.4-10.2) mg/dL Magnesium 2.1 (1.6-2.3) mg/dL Total Bilirubin (0.2-1.3) mg/dL AST (14-36) IU/L ALT (<35) IU/L Alkaline Phosphatase (38-126) U/L Total Creatine Kinase (30-135) U/L CK-MB (CK-2) CK-MB (CK-2) Rel Index Troponin I (0.01-0.034) ng/mL Total Protein (6.3-8.2) g/dL Albumin (3.5-5.0) g/dL Globulin (1.7-4.1) g/dL Albumin/Globulin Ratio (1.0-2.8) Triglycerides 152 H (35-150) mg/dL Cholesterol 216 H (140-199) mg/dL LDL Cholesterol, Calc 127 H (<100) mg/dL HDL Cholesterol 59 (40-60) mg/dL TSH 1.38 (0.47-4.68) uIU/mL SARS-CoV-2 (PCR) (Negative) 05/31/22 Range/Units 16:56 WBC (4.5-11.0) X10^3/uL RBC (4.0-5.2) X10^6/uL Hgb (12.0-16.0) g/dL Hct (36-46) % MCV (80-100) fL MCH (26-34) PG MCHC (30-36) % RDW (11.6-14.8) % Plt Count (150-400) X10^3/uL Neut % (Auto) (50-75) % Lymph % (Auto) (25-40) % [place] % (Auto) (3-14) % Eos % (Auto) (2-4) % Baso % (Auto) (0-2) % Neut # (Auto) (7633-9911) /uL Lymph # (Auto) (0414-3520) /uL [place] # (Auto) (0-900) /uL Eos # (Auto) (0-450) /uL Baso # (Auto) (0-100) /uL Sodium (137-145) mmol/L Potassium (3.4-5.1) mmol/L Chloride (98-107) mmol/L Carbon Dioxide (22-32) mmol/L BUN (7-17) mg/dL Creatinine (0.52-1.04) mg/dL Estimated GFR (>60) mL/min BUN/Creatinine Ratio (6-22) Glucose (80-110) mg/dL Hemoglobin A1c (4.0-6.0) % Calcium (8.4-10.2) mg/dL Magnesium (1.6-2.3) mg/dL Total Bilirubin (0.2-1.3) mg/dL AST (14-36) IU/L ALT (<35) IU/L Alkaline Phosphatase (38-126) U/L Total Creatine Kinase (30-135) U/L CK-MB (CK-2) CK-MB (CK-2) Rel Index Troponin I (0.01-0.034) ng/mL Total Protein (6.3-8.2) g/dL Albumin (3.5-5.0) g/dL Globulin (1.7-4.1) g/dL Albumin/Globulin Ratio (1.0-2.8) Triglycerides (35-150) mg/dL Cholesterol (140-199) mg/dL LDL Cholesterol, Calc (<100) mg/dL HDL Cholesterol (40-60) mg/dL TSH (0.47-4.68) uIU/mL SARS-CoV-2 (PCR) Negative (Negative) Imaging Data CT scan - head: Radiologist's Impression: [address] [address] [address] Scan Report Signed Patient: Kristi Long MR#: [id number] : 1955 Acct:[id number] Age/Sex: 66 / F Date of Service: 05/31/22 Loc: ED Accession Number: [id number] ?? Procedure: CT head/brain wo con Ordering Provider: Camacho Her MD PROCEDURE:? CT HEAD/BRAIN WO CON ? INDICATIONS:? numb face,weakness last night ? TECHNIQUE:? Noncontrast 4.5 mm thick angled axial sections acquired from the foramen magnum to the vertex, with coronal and sagittal reformats.? For radiation dose reduction, the following was used:? automated exposure control, adjustment of mA and/or kV according to patient size.? ? COMPARISON:? [facility], CT, CT HEAD/BRAIN WO CON, 06/21/2020, 15:39. ? FINDINGS:? Image quality:? Excellent.? ? CSF spaces:? Basal cisterns are patent.? No extra-axial fluid collections.? Ventricles are normal in size and shape.? ? Brain:? No midline shift.? No intracranial masses or hemorrhage.? Arias-white matter interface is normal.? Dense bilateral distal vertebral artery atherosclerotic calcifications. ? Skull and face:? Calvarium and visualized facial bones are intact, without suspicious lesions.? ? Sinuses:? Visualized sinuses and mastoids are clear.? ? IMPRESSION:? ? 1. No evidence acute intracranial abnormality. ? 2. Bilateral vertebral artery atherosclerotic calcifications.? ? ? Dictated by: Bonifacio Tanner M.D. on 05/31/2022 at 15:08 ? ? Approved by: Bonifacio Tanner M.D. on 05/31/2022 at 15:10 ? MDM Narrative Medical decision making narrative: This is a 66-year-old female presents to the emergency department complaining of an episode of right-sided facial numbness as well as generalized weakness for approximately 10 minutes yesterday a couple hours after receiving the omicron booster shot. CT head showed no acute changes but spoke with my attending physician recommended hospital admission for TIA rule out. Unable to perform CTA due to contrast allergy. Troponin and EKG unremarkable. Spoke w/ Dr. Ruiz, hospitalsist, who kindly accepted the pt for admission. <Camacho Her MD - Last Filed: 06/13/22 22:24> Lab Data Labs: Lab Results 05/31/22 05/31/22 05/31/22 Range/Units 13:56 14:53 14:53 WBC 6.3 (4.5-11.0) X10^3/uL RBC 4.47 (4.0-5.2) X10^6/uL Hgb 13.6 (12.0-16.0) g/dL Hct 40.9 (36-46) % MCV 91.5 (80-100) fL MCH 30.5 (26-34) PG MCHC 33.4 (30-36) % RDW 13.0 (11.6-14.8) % Plt Count 212 (150-400) X10^3/uL Neut % (Auto) 74.5 (50-75) % Lymph % (Auto) 11.8 L (25-40) % [place] % (Auto) 9.6 (3-14) % Eos % (Auto) 3.3 (2-4) % Baso % (Auto) 0.8 (0-2) % Neut # (Auto) 4700 (7262-3165) /uL Lymph # (Auto) 700 L (9425-1783) /uL [place] # (Auto) 600 (0-900) /uL Eos # (Auto) 200 (0-450) /uL Baso # (Auto) 100 (0-100) /uL Sodium 139 (137-145) mmol/L Potassium 4.0 (3.4-5.1) mmol/L Chloride 101 (98-107) mmol/L Carbon Dioxide 28 (22-32) mmol/L BUN 19 H (7-17) mg/dL Creatinine 0.77 (0.52-1.04) mg/dL Estimated GFR > 60 (>60) mL/min BUN/Creatinine Ratio 24.7 H (6-22) Glucose 106 (80-110) mg/dL Hemoglobin A1c (4.0-6.0) % Calcium 9.2 (8.4-10.2) mg/dL Magnesium (1.6-2.3) mg/dL Total Bilirubin 0.5 (0.2-1.3) mg/dL AST 26 (14-36) IU/L ALT 42 H (<35) IU/L Alkaline Phosphatase 65 (38-126) U/L Total Creatine Kinase 65 (30-135) U/L CK-MB (CK-2) TNP CK-MB (CK-2) Rel Index TNP Troponin I < 0.012 (0.01-0.034) ng/mL Total Protein 7.3 (6.3-8.2) g/dL Albumin 4.5 (3.5-5.0) g/dL Globulin 2.8 (1.7-4.1) g/dL Albumin/Globulin Ratio 1.6 (1.0-2.8) Triglycerides (35-150) mg/dL Cholesterol (140-199) mg/dL LDL Cholesterol, Calc (<100) mg/dL HDL Cholesterol (40-60) mg/dL TSH (0.47-4.68) uIU/mL SARS-CoV-2 (PCR) (Negative) 05/31/22 05/31/22 05/31/22 Range/Units 14:53 14:53 14:53 WBC (4.5-11.0) X10^3/uL RBC (4.0-5.2) X10^6/uL Hgb (12.0-16.0) g/dL Hct (36-46) % MCV (80-100) fL MCH (26-34) PG MCHC (30-36) % RDW (11.6-14.8) % Plt Count (150-400) X10^3/uL Neut % (Auto) (50-75) % Lymph % (Auto) (25-40) % [place] % (Auto) (3-14) % Eos % (Auto) (2-4) % Baso % (Auto) (0-2) % Neut # (Auto) (1495-7838) /uL Lymph # (Auto) (3334-8977) /uL [place] # (Auto) (0-900) /uL Eos # (Auto) (0-450) /uL Baso # (Auto) (0-100) /uL Sodium (137-145) mmol/L Potassium (3.4-5.1) mmol/L Chloride (98-107) mmol/L Carbon Dioxide (22-32) mmol/L BUN (7-17) mg/dL Creatinine (0.52-1.04) mg/dL Estimated GFR (>60) mL/min BUN/Creatinine Ratio (6-22) Glucose (80-110) mg/dL Hemoglobin A1c 6.0 (4.0-6.0) % Calcium (8.4-10.2) mg/dL Magnesium 2.1 (1.6-2.3) mg/dL Total Bilirubin (0.2-1.3) mg/dL AST (14-36) IU/L ALT (<35) IU/L Alkaline Phosphatase (38-126) U/L Total Creatine Kinase (30-135) U/L CK-MB (CK-2) CK-MB (CK-2) Rel Index Troponin I (0.01-0.034) ng/mL Total Protein (6.3-8.2) g/dL Albumin (3.5-5.0) g/dL Globulin (1.7-4.1) g/dL Albumin/Globulin Ratio (1.0-2.8) Triglycerides 152 H (35-150) mg/dL Cholesterol 216 H (140-199) mg/dL LDL Cholesterol, Calc 127 H (<100) mg/dL HDL Cholesterol 59 (40-60) mg/dL TSH 1.38 (0.47-4.68) uIU/mL SARS-CoV-2 (PCR) (Negative) 05/31/22 Range/Units 16:56 WBC (4.5-11.0) X10^3/uL RBC (4.0-5.2) X10^6/uL Hgb (12.0-16.0) g/dL Hct (36-46) % MCV (80-100) fL MCH (26-34) PG MCHC (30-36) % RDW (11.6-14.8) % Plt Count (150-400) X10^3/uL Neut % (Auto) (50-75) % Lymph % (Auto) (25-40) % [place] % (Auto) (3-14) % Eos % (Auto) (2-4) % Baso % (Auto) (0-2) % Neut # (Auto) (6979-7846) /uL Lymph # (Auto) (0452-2040) /uL [place] # (Auto) (0-900) /uL Eos # (Auto) (0-450) /uL Baso # (Auto) (0-100) /uL Sodium (137-145) mmol/L Potassium (3.4-5.1) mmol/L Chloride (98-107) mmol/L Carbon Dioxide (22-32) mmol/L BUN (7-17) mg/dL Creatinine (0.52-1.04) mg/dL Estimated GFR (>60) mL/min BUN/Creatinine Ratio (6-22) Glucose (80-110) mg/dL Hemoglobin A1c (4.0-6.0) % Calcium (8.4-10.2) mg/dL Magnesium (1.6-2.3) mg/dL Total Bilirubin (0.2-1.3) mg/dL AST (14-36) IU/L ALT (<35) IU/L Alkaline Phosphatase (38-126) U/L Total Creatine Kinase (30-135) U/L CK-MB (CK-2) CK-MB (CK-2) Rel Index Troponin I (0.01-0.034) ng/mL Total Protein (6.3-8.2) g/dL Albumin (3.5-5.0) g/dL Globulin (1.7-4.1) g/dL Albumin/Globulin Ratio (1.0-2.8) Triglycerides (35-150) mg/dL Cholesterol (140-199) mg/dL LDL Cholesterol, Calc (<100) mg/dL HDL Cholesterol (40-60) mg/dL TSH (0.47-4.68) uIU/mL SARS-CoV-2 (PCR) Negative (Negative) Discharge Plan Departure Patient Disposition: Admitted As Inpatient Clinical Impression: Facial numbness Admit Date/Time: 05/31/22 17:18 Admit Provider: Rahul Ruiz <Camacho Her MD - Last Filed: 06/13/22 22:24> Cosign ED Attending Cosignature Attestation: I was immediately available in the department for consultation. ?This documentation has been reviewed and I agree with assessment and plan. Supervised by Camacho Her MD
--- NOTE | 2022-05-31 14:04 | DI.CT.S_ITS ---
PROCEDURE: CT HEAD/BRAIN WO CON INDICATIONS: numb face,weakness last night TECHNIQUE: Noncontrast 4.5 mm thick angled axial sections acquired from the foramen magnum to the vertex, with coronal and sagittal reformats. For radiation dose reduction, the following was used: automated exposure control, adjustment of mA and/or kV according to patient size. COMPARISON: [facility], CT, CT HEAD/BRAIN WO CON, 06/21/2020, 15:39. FINDINGS: Image quality: Excellent. CSF spaces: Basal cisterns are patent. No extra-axial fluid collections. Ventricles are normal in size and shape. Brain: No midline shift. No intracranial masses or hemorrhage. Arias-white matter interface is normal. Dense bilateral distal vertebral artery atherosclerotic calcifications. Skull and face: Calvarium and visualized facial bones are intact, without suspicious lesions. Sinuses: Visualized sinuses and mastoids are clear. IMPRESSION: 1. No evidence acute intracranial abnormality. 2. Bilateral vertebral artery atherosclerotic calcifications. Dictated by: Bonifacio Tanner M.D. on 05/31/2022 at 15:08 Approved by: Bonifacio Tanner M.D. on 05/31/2022 at 15:10
[2022-05-31 15:00] LABS: Add Manual Diff / Slide Review NO; Basophils Absolute Auto 100 /uL (0-100); Basophils Percent Auto 0.8 % (0-2); Eosinophils Absolute Auto 200 /uL (0-450); Eosinophils Percent Auto 3.3 % (2-4); Hematocrit 40.9 % (36-46); Hemoglobin 13.6 g/dL (12.0-16.0); Lymphocytes Absolute Auto 700 /uL (1100-4500); Lymphocytes Percent Auto 11.8 % (25-40); Mean Corpuscular HGB Conc 33.4 % (30-36); Mean Corpuscular Hemoglobin 30.5 PG (26-34); Mean Corpuscular Volume 91.5 fL (80-100); Monocytes Absolute Auto 600 /uL (0-900); Monocytes Percent Auto 9.6 % (3-14); Neutrophils Absolute Auto 4700 /uL (1500-7000); Neutrophils Percent Auto 74.5 % (50-75); Platelet Count 212 X10^3/uL (150-400); Red Blood Cell Count 4.47 X10^6/uL (4.0-5.2); White Blood Cell Count 6.3 X10^3/uL (4.5-11.0)
--- NOTE | 2022-05-31 15:09 | PC.NURSE ---
Pt reports onset of right side face numbness yesterday at 1999, lasted a few hours and resolved.
[2022-05-31 15:24] LABS: Alanine Aminotransferase 42 IU/L (<35); Albumin 4.5 g/dL (3.5-5.0); Albumin Globulin Ratio 1.6 (1.0-2.8); Alkaline Phosphatase 65 U/L (38-126); Aspartate Aminotransferase 26 IU/L (14-36); BUN Creatinine Ratio 24.7 (6-22); Bilirubin Total 0.5 mg/dL (0.2-1.3); Blood Urea Nitrogen 19 mg/dL (7-17); Calcium 9.2 mg/dL (8.4-10.2); Carbon Dioxide 28 mmol/L (22-32); Chloride 101 mmol/L (98-107); Creatine Kinase 65 U/L (30-135); Estimated Glomerular Filt Rate > 60 mL/min (>60); Globulin 2.8 g/dL (1.7-4.1); Glucose 106 mg/dL (80-110); HEMOLYSIS < 15 (0-50); Sodium 139 mmol/L (137-145); Total Protein 7.3 g/dL (6.3-8.2)
--- NOTE | 2022-05-31 15:27 | DI.MRI.S_ITS ---
PROCEDURE: MR STROKE Pre- and post-contrast brain MRI, non-contrast brain MR angiogram, pre- and postcontrast neck MR angiogram INDICATIONS: Weakness and facial numbness yesterday TECHNIQUE: Brain: Noncontrast axial T1 spin echo, axial T2 fast spin echo, sagittal and axial FLAIR, coronal T2 fast spin echo, axial gradient echo, axial diffusion and ADC through the brain. After the administration of contrast, axial 3D VIBE of the cranial vasculature and brain. Brain MRA: Non-contrast 3-D time of flight MR angiogram, with multiple bweotwo-lcpsehten-jrjvxhxbom (MIP) reformats performed. Neck MRA: Axial and sagittal TruFISP through the neck. Coronal dynamic MR angiogram during administration of contrast in the arterial and venous phases, with 3-dimenstional aqelxjw-pupggptzd-fkqdnqcgai (MIP) reformats constructed from subtraction images. COMPARISON: None. FINDINGS: Image quality: Excellent. BRAIN: CSF spaces: Ventricles are normal in size and shape. Basal cisterns are patent. No extra-axial fluid collections. Brain: No intracranial bleeds or mass effects. Arias-white matter interface is normal. Diffusion weighted images show no acute ischemic insults. Brainstem appears normal. Normal intravascular flow voids are present. No abnormal intracranial enhancement. Mild atrophy and chronic ischemic change Skull and face: Calvarial marrow signal is normal. Orbits appear normal. Bilateral intraocular lens replacements noted. Sinuses: Sinuses and mastoids are clear. BRAIN MR ANGIOGRAM: Anterior circulation: Intracranial internal carotid arteries are normal in size and enhancement. The flow within the paired anterior cerebral arteries is normal and symmetric. The flow within the middle cerebral arteries is normal and symmetric. The anterior communicating artery is seen. No stenoses, occlusions, or aneurysms. Posterior circulation: The visualized portions of the vertebral arteries demonstrate normal caliber, and join to form a normal appearing basilar artery. The flow within the posterior cerebral arteries is normal and symmetric. No stenoses, occlusions, or aneurysms. NECK MR ANGIOGRAM: Carotids: Great vessels demonstrate a conventional anatomy as they arise from the aortic arch. The origins of the common carotid arteries appear patent. The calibers and courses of both common carotid arteries are normal. The bifurcation regions appear normal bilaterally. The internal carotid arteries demonstrate normal course and caliber. Posterior circulation: The origins of the vertebral arteries appear patent. More superior portions of both vertebral arteries demonstrate normal course and caliber, and join to form a normal appearing basilar artery. Miscellaneous: Subclavian arteries appear patent. Pre-contrast images through the neck show no soft tissue abnormalities. IMPRESSION: Mild atrophy and chronic ischemic change without acute infarct, hemorrhage or mass lesion. Unremarkable MR angiogram of the neck without large vessel occlusion, aneurysm or vascular malformation Approved by: Jevon Russell M.D. on 05/31/2022 at 18:20
[2022-05-31 15:36] LABS: Troponin I < 0.012 ng/mL (0.01-0.034)
[2022-05-31 15:51] VITALS: BP 192/87; PULSE 87; RESP 16; O2SAT 99
[2022-05-31 16:51] VITALS: BP 186/87; PULSE 80; RESP 16; O2SAT 99
[2022-05-31] MEDS: hydrOXYzine pamoate 25 MG CAPSULE 50 MG PO (17:11)
[2022-05-31 17:16] LABS: COVID19 -Nasal RAPID Negative (Negative)
--- NOTE | 2022-05-31 17:24 | P.HP_ITS ---
History of Present Illness History of Present Illness Chief complaint: Omicron booster last night, Rt side of face numb Narrative: Kristi Long is a 66-year-old female with past medical history of pulmonary embolism on Xarelto, hyperlipidemia, hypothyroidism, and MILLICENT who received her COVID booster yesterday and then presented to the ED for 10 minutes of right- sided facial numbness which developed 3 hours after the booster. She said it felt very weird so she got worried and came to the ED. No facial droop or extremity weakness. Never had these symptoms before. Denies CP, NV, abd pain or diarrhea. In the ED CT noncontrast head was negative but showed vertebral artery atherosclerosis CTA head not done due to contrast allergy. Blood pressure is 175/87. Labs unremarkable and COVID test negative. Patient History Medical History (Updated 05/31/22 @ 16:58 by Fantasma Negrete PA-C) Abnormal Pap smear of cervix Acne (1969) Anaphylactic reaction DVT (deep venous thrombosis) (~2013) DVT of axillary vein, chronic left Eczema Enteritis Fibroids Gastro-esophageal reflux disease with esophagitis Hayfever (1966) Hepatitis B (~1976) History of ovarian cyst History of torn meniscus of left knee (2012) Hyperlipidemia Hypothyroidism (2009) Infertility Irritable larynx syndrome Lichen planus Measles Mumps Obesity (BMI 30-39.9) Obstructive sleep apnea of adult Osteoarthritis Osteoarthritis of right knee PCOS (polycystic ovarian syndrome) (1974) Plantar warts Postoperative pulmonary embolism (2013) Retinal detachment, left (2010) Retinal detachment, right (2011) Rosacea (2008) Schatzki's ring of distal esophagus (~03/20/21) Sensorineural hearing loss, bilateral Shoulder pain Sleep apnea (~2015) Subungual hematoma of great toe Surgical History Anesthesia History of eye surgery (02/27/11) History of eye surgery (05/15/12) History of knee replacement (05/13/14) History of sinus surgery (1987) History of surgical removal of meniscus of knee (09/03/13) History of tonsillectomy (1964) Status post delivery (12/1984) Status post delivery (06/1981) Status post endometrial ablation (2005) Status post loop electrosurgical excision procedure (LEEP) of cervix (01/2006) Status post surgical removal of neoplasm of skin (1957) Family & Social History Family History Father Heart disease Mother Osteoporosis Stroke Celiac disease Glaucoma COPD (chronic obstructive pulmonary disease) Emphysema lung Sister Age: 63 Alcoholic Drug abuse Hepatitis C Son No problems noted. Son Gdvjoi-[id number]-[id number] transgender person PCOS (polycystic ovarian syndrome) Safety & Behavioral: Feels Safe in Current Yes Environment Been Physically Hurt or No Threatened By a Person Tobacco & Substance use: Smoking Status Never smoker alcohol intake frequency holiday/special occasion Substance Use Type does not use Meds Home Medications and Allergies Home Medications Medication Instructions Recorded Confirmed Type Resmed Aircurve 10 BIPAP #1 ea 06/11/19 05/02/22 History acetaminophen 325 mg tablet 650 mg PO Q6H PRN pain 08/18/19 05/02/22 History rivaroxaban 10 mg tablet (Xarelto) 10 mg PO DAILY 07/20/20 05/02/22 History levocetirizine 5 mg tablet 5 mg PO DAILY #90 tabs 09/18/21 05/02/22 Rx levothyroxine 50 mcg tablet 50 mcg PO DAILY Hypothyrodisim #90 09/18/21 05/02/22 Rx (Synthroid) tabs metoprolol succinate 25 mg See Rx Instructions .Route 09/18/21 05/02/22 Rx tablet,extended release 24 hr .COMPLEX #90 tabs betamethasone dipropionate 0.05 % 1 applic topical DAILY #45 grams 12/20/21 05/02/22 Rx topical cream clobetasol 0.05 % topical ointment 1 applic topical BID 1 week #30 12/20/21 05/02/22 Rx grams cyclobenzaprine 7.5 mg tablet 7.5 mg PO BEDTIME PRN muscle spasm 04/10/22 05/02/22 Rx #30 tabs meloxicam 15 mg tablet 15 mg PO DAILY 04/10/22 05/02/22 History atorvastatin 10 mg tablet 10 mg PO BEDTIME #90 tabs 05/04/22 Rx Allergies Allergy/AdvReac Type Severity Reaction Status Date / Time diazepam Allergy Severe eyes Verified 05/31/22 13:45 swelled shut, hard to breath epinephrine Allergy Severe SEIZURES Verified 05/31/22 13:45 clindamycin Allergy Mild RASH Verified 05/31/22 13:45 doxycycline Allergy Unknown RASH Verified 05/31/22 13:45 azithromycin AdvReac Unknown THROW UP Verified 05/31/22 13:45 Review of Systems Review of Systems Narrative: All other systems reviewed with the patient and are negative unless otherwise stated. Exam Vital Signs (past 8 hours): - 05/31/22 13:40 05/31/22 15:51 05/31/22 16:51 Temperature 98.1 F Pulse Rate 98 H 87 80 Respiratory Rate 15 16 16 Blood Pressure 175/87 H 192/87 H 186/87 H Pulse Oximetry 98 99 99 Oxygen Delivery Method Room Air Room Air Room Air Oxygen Delivery Method Room Air Narrative Exam Narrative: GEN: no acute distress, somewhat anxious HEENT: moist mucous membranes, PERRL NECK: trachea midline, no JVD CV: regular rate and rhythm, no murmurs PULM: clear bilaterally ABD: soft, nontender, nondistended, no organomegaly EXT: warm and well perfused with no edema NEURO: awake, alert, oriented, no focal deficits, no facial droop Objective Labs Result Diagrams: 05/31/22 13:56 05/31/22 14:53 Labs: Laboratory Results - last 24 hr 05/31/22 05/31/22 05/31/22 13:56 14:53 14:53 WBC 6.3 RBC 4.47 Hgb 13.6 Hct 40.9 MCV 91.5 MCH 30.5 MCHC 33.4 RDW 13.0 Plt Count 212 Neut % (Auto) 74.5 Lymph % (Auto) 11.8 L [place] % (Auto) 9.6 Eos % (Auto) 3.3 Baso % (Auto) 0.8 Neut # (Auto) 4700 Lymph # (Auto) 700 L [place] # (Auto) 600 Eos # (Auto) 200 Baso # (Auto) 100 Sodium 139 Potassium 4.0 Chloride 101 Carbon Dioxide 28 BUN 19 H Creatinine 0.77 Estimated GFR > 60 BUN/Creatinine Ratio 24.7 H Glucose 106 Calcium 9.2 Total Bilirubin 0.5 AST 26 ALT 42 H Alkaline Phosphatase 65 Total Creatine Kinase 65 CK-MB (CK-2) TNP CK-MB (CK-2) Rel Index TNP Troponin I < 0.012 Total Protein 7.3 Albumin 4.5 Globulin 2.8 Albumin/Globulin Ratio 1.6 SARS-CoV-2 (PCR) 05/31/22 16:56 WBC RBC Hgb Hct MCV MCH MCHC RDW Plt Count Neut % (Auto) Lymph % (Auto) [place] % (Auto) Eos % (Auto) Baso % (Auto) Neut # (Auto) Lymph # (Auto) [place] # (Auto) Eos # (Auto) Baso # (Auto) Sodium Potassium Chloride Carbon Dioxide BUN Creatinine Estimated GFR BUN/Creatinine Ratio Glucose Calcium Total Bilirubin AST ALT Alkaline Phosphatase Total Creatine Kinase CK-MB (CK-2) CK-MB (CK-2) Rel Index Troponin I Total Protein Albumin Globulin Albumin/Globulin Ratio SARS-CoV-2 (PCR) Negative Assessment & Plan Assessment & Plan narrative: # acute right-sided facial numbness concerning for TIA -lasted for 10 minutes, ABCD2 score of 3 -CT noncontrast head negative but showed vertebral atherosclerosis -MRI brain pending -echo ordered, also carotid ultrasound given CT findings -no aspirin since on Xarelto and will continue this -telemetry # history of PE following by her knee replacements -continue Xarelto -notes she will take it indefinitely # lumbar spinal stenosis -reports symptoms of sciatica being followed by lap machine tender # hypertension, chronic -hold home meds and resume after 24 hours # hyperlipidemia, chronic -continue home Lipitor # hypothyroidism, chronic -continue home Synthroid -check TSH # MILLICENT, chronic Code status is full code. COVID negative. DVT prophylaxis with Xarelto. Proxy is Camacho. I have reviewed home meds and used all available resources to reconcile the home meds. Time Spent With Patient Critical Care time: I spent a total of [] minutes of critical care time on this patient's care today; this time is exclusive of procedural time.
[2022-05-31 18:56] LABS: Cholesterol 216 mg/dL (140-199); HDL Cholesterol 59 mg/dL (40-60); LDL Cholesterol Calculated 127 mg/dL (<100); Magnesium 2.1 mg/dL (1.6-2.3); Triglycerides 152 mg/dL (35-150)
[2022-05-31 19:07] VITALS: BP 180/95; PULSE 91; RESP 19; TEMP 36.5; O2SAT 95
[2022-05-31 19:14] VITALS: BMI 36.1
[2022-05-31 19:27] LABS: TSH w/ Reflex to FT4 1.38 uIU/mL (0.47-4.68)
[2022-05-31 20:00] VITALS: BP 163/76; PULSE 93; RESP 18; TEMP 36.4; O2SAT 98
[2022-05-31] MEDS: CYCLOBENZAPRINE 10 MG TABLET 5 MG PO (21:14)
[2022-05-31] MEDS: ATORVASTATIN 20 MG TABLET 40 MG PO (21:14)
[2022-05-31] MEDS: SODIUM CHLORIDE 0.9% FLUSH 10 ML IV (21:14)
[2022-06-01 00:08] VITALS: BP 120/62; PULSE 72; RESP 16; TEMP 36.5; O2SAT 98
[2022-06-01 04:00] VITALS: BP 136/82; PULSE 85; RESP 18; TEMP 36.4; O2SAT 96
[2022-06-01 04:53] LABS: Add Manual Diff / Slide Review NO; Basophils Absolute Auto 0 /uL (0-100); Basophils Percent Auto 0.3 % (0-2); Eosinophils Absolute Auto 200 /uL (0-450); Eosinophils Percent Auto 3.9 % (2-4); Hematocrit 39.5 % (36-46); Hemoglobin 13.6 g/dL (12.0-16.0); Lymphocytes Absolute Auto 1000 /uL (1100-4500); Lymphocytes Percent Auto 17.9 % (25-40); Mean Corpuscular HGB Conc 34.4 % (30-36); Mean Corpuscular Hemoglobin 31.2 PG (26-34); Mean Corpuscular Volume 90.8 fL (80-100); Monocytes Absolute Auto 600 /uL (0-900); Monocytes Percent Auto 10.2 % (3-14); Neutrophils Absolute Auto 3800 /uL (1500-7000); Neutrophils Percent Auto 67.7 % (50-75); Platelet Count 199 X10^3/uL (150-400); Red Blood Cell Count 4.35 X10^6/uL (4.0-5.2); White Blood Cell Count 5.6 X10^3/uL (4.5-11.0)
[2022-06-01 05:02] LABS: BUN Creatinine Ratio 29.6 (6-22); Blood Urea Nitrogen 16 mg/dL (7-17); Carbon Dioxide 25 mmol/L (22-32); Chloride 104 mmol/L (98-107); Estimated Glomerular Filt Rate > 60 mL/min (>60); Glucose 109 mg/dL (80-110); HEMOLYSIS < 15 (0-50); Potassium 4.1 mmol/L (3.4-5.1); Sodium 137 mmol/L (137-145)
--- NOTE | 2022-06-01 06:20 | PC.NURSE ---
Admit Note-Patient brought to room 225 via WC, ambulates in room without difficulty. A/Ox4, REDDY, follows directions. Denies chest pain, pressure or dizziness. SR/SA on telemetry, BP 180/95, trended down to 136/82 by am.
[2022-06-01 08:00] VITALS: BP 148/82; PULSE 83; RESP 19; TEMP 37; O2SAT 97
[2022-06-01 08:09] VITALS: BP 148/82; PULSE 83
[2022-06-01] MEDS: LEVOTHYROXINE 50 MCG TABLET PO (08:09)
[2022-06-01] MEDS: METOPROLOL ER 25 MG TABLET PO (08:09)
[2022-06-01] MEDS: RIVAROXABAN 10 MG TABLET PO (08:09)
[2022-06-01] MEDS: SODIUM CHLORIDE 0.9% FLUSH 10 ML IV (08:15)
--- NOTE | 2022-06-01 08:23 | P.DS_ITS ---
History of Present Illness History of Present Illness Date Patient Seen: 06/01/22 Time Patient Seen: 10:07 Chief complaint: Omicron booster last night, Rt side of face numb Narrative: Kristi Long is a 66-year-old female with past medical history of pulmonary embolism on Xarelto, hyperlipidemia, hypothyroidism, and MILLICENT who received her COVID booster yesterday and then presented to the ED for 10 minutes of right- sided facial numbness which developed 3 hours after the booster. She said it felt very weird so she got worried and came to the ED. No facial droop or extremity weakness. Never had these symptoms before. Denies CP, NV, abd pain or diarrhea. In the ED CT noncontrast head was negative but showed vertebral artery atherosclerosis CTA head not done due to contrast allergy. Blood pressure is 175/87. Labs unremarkable and COVID test negative. Discharge Providers Provider Date of admission: 05/31/22 17:18 Discharge Date: 06/01/22 Primary care physician: Essence Erickson MD Discharge provider: Rahul Ruiz DO Summary Hospital Course Discharge Diagnosis: # acute right-sided facial numbness concerning for TIA -lasted for 10 minutes, ABCD2 score of 3 -CT noncontrast head negative but showed vertebral atherosclerosis -MRI brain pending -echo ordered, also carotid ultrasound given CT findings -no aspirin since on Xarelto and will continue this -telemetry # history of PE following by her knee replacements -continue Xarelto -notes she will take it indefinitely # lumbar spinal stenosis -reports symptoms of sciatica being 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 MRI stroke protocol of brain normal. CT head normal. Already on xarelto so no aspirin added. Increased her home lipitor from 10mg to 40mg nightly given elevated LDL of 127. TSH normal. Echo was done but not read yet. Since she will see her primary doctor on Saturday next week in a few days, they can go over the echo results with her at that time. Patient agreeable to this. Time Spent with Patient Time spent: Greater than 30 minutes Exam Vital Signs (past 8 hours): - 06/01/22 04:00 06/01/22 08:09 Temperature 97.5 F L Pulse Rate 85 83 Respiratory Rate 18 Blood Pressure 136/82 148/82 H Pulse Oximetry 96 Oxygen Delivery Method Room Air Oxygen Flow Rate 0 Narrative Exam Narrative: GEN: no acute distress, somewhat anxious HEENT: moist mucous membranes, PERRL NECK: trachea midline, no JVD CV: regular rate and rhythm, no murmurs PULM: clear bilaterally ABD: soft, nontender, nondistended, no organomegaly EXT: warm and well perfused with no edema NEURO: awake, alert, oriented, no focal deficits, no facial droop Objective Labs Result Diagrams: 06/01/22 04:06 06/01/22 04:06 Labs: Laboratory Results - last 24 hr 05/31/22 05/31/22 05/31/22 13:56 14:53 14:53 WBC 6.3 RBC 4.47 Hgb 13.6 Hct 40.9 MCV 91.5 MCH 30.5 MCHC 33.4 RDW 13.0 Plt Count 212 Neut % (Auto) 74.5 Lymph % (Auto) 11.8 L [place] % (Auto) 9.6 Eos % (Auto) 3.3 Baso % (Auto) 0.8 Neut # (Auto) 4700 Lymph # (Auto) 700 L [place] # (Auto) 600 Eos # (Auto) 200 Baso # (Auto) 100 Sodium 139 Potassium 4.0 Chloride 101 Carbon Dioxide 28 BUN 19 H Creatinine 0.77 Estimated GFR > 60 BUN/Creatinine Ratio 24.7 H Glucose 106 Hemoglobin A1c Calcium 9.2 Magnesium Total Bilirubin 0.5 AST 26 ALT 42 H Alkaline Phosphatase 65 Total Creatine Kinase 65 CK-MB (CK-2) TNP CK-MB (CK-2) Rel Index TNP Troponin I < 0.012 Total Protein 7.3 Albumin 4.5 Globulin 2.8 Albumin/Globulin Ratio 1.6 Triglycerides Cholesterol LDL Cholesterol, Calc HDL Cholesterol TSH SARS-CoV-2 (PCR) 05/31/22 05/31/22 05/31/22 14:53 14:53 14:53 WBC RBC Hgb Hct MCV MCH MCHC RDW Plt Count Neut % (Auto) Lymph % (Auto) [place] % (Auto) Eos % (Auto) Baso % (Auto) Neut # (Auto) Lymph # (Auto) [place] # (Auto) Eos # (Auto) Baso # (Auto) Sodium Potassium Chloride Carbon Dioxide BUN Creatinine Estimated GFR BUN/Creatinine Ratio Glucose Hemoglobin A1c 6.0 Calcium Magnesium 2.1 Total Bilirubin AST ALT Alkaline Phosphatase Total Creatine Kinase CK-MB (CK-2) CK-MB (CK-2) Rel Index Troponin I Total Protein Albumin Globulin Albumin/Globulin Ratio Triglycerides 152 H Cholesterol 216 H LDL Cholesterol, Calc 127 H HDL Cholesterol 59 TSH 1.38 SARS-CoV-2 (PCR) 05/31/22 06/01/22 06/01/22 16:56 04:06 04:06 WBC 5.6 RBC 4.35 Hgb 13.6 Hct 39.5 MCV 90.8 MCH 31.2 MCHC 34.4 RDW 13.0 Plt Count 199 Neut % (Auto) 67.7 Lymph % (Auto) 17.9 L [place] % (Auto) 10.2 Eos % (Auto) 3.9 Baso % (Auto) 0.3 Neut # (Auto) 3800 Lymph # (Auto) 1000 L [place] # (Auto) 600 Eos # (Auto) 200 Baso # (Auto) 0 Sodium 137 Potassium 4.1 Chloride 104 Carbon Dioxide 25 BUN 16 Creatinine 0.54 Estimated GFR > 60 BUN/Creatinine Ratio 29.6 H Glucose 109 Hemoglobin A1c Calcium 9.0 Magnesium Total Bilirubin AST ALT Alkaline Phosphatase Total Creatine Kinase CK-MB (CK-2) CK-MB (CK-2) Rel Index Troponin I Total Protein Albumin Globulin Albumin/Globulin Ratio Triglycerides Cholesterol LDL Cholesterol, Calc HDL Cholesterol TSH SARS-CoV-2 (PCR) Negative [facility] Medical History (Updated 06/01/22 @ 09:41 by Elsie Pacheco) Abnormal Pap smear of cervix Acne (1969) Anaphylactic reaction DVT (deep venous thrombosis) (~2013) DVT of axillary vein, chronic left Eczema Enteritis Fibroids Gastro-esophageal reflux disease with esophagitis Hayfever (1966) Hepatitis B (~1976) History of ovarian cyst History of torn meniscus of left knee (2012) Hyperlipidemia Hypothyroidism (2009) Infertility Irritable larynx syndrome Lichen planus Measles Mumps Obesity (BMI 30-39.9) Obstructive sleep apnea of adult Osteoarthritis Osteoarthritis of right knee PCOS (polycystic ovarian syndrome) (1974) Plantar warts Postoperative pulmonary embolism (2013) Retinal detachment, left (2010) Retinal detachment, right (2011) Rosacea (2008) Schatzki's ring of distal esophagus (~07/26/21) Sensorineural hearing loss, bilateral Shoulder pain Sleep apnea (~2015) Subungual hematoma of great toe Surgical History Anesthesia History of eye surgery (02/27/11) History of eye surgery (05/15/12) History of knee replacement (05/13/14) History of sinus surgery (1987) History of surgical removal of meniscus of knee (09/03/13) History of tonsillectomy (1964) Status post delivery (12/1984) Status post delivery (06/1981) Status post endometrial ablation (2005) Status post loop electrosurgical excision procedure (LEEP) of cervix (01/2006) Status post surgical removal of neoplasm of skin (1957) Family History Father Heart disease Mother Osteoporosis Stroke Celiac disease Glaucoma COPD (chronic obstructive pulmonary disease) Emphysema lung Sister Age: 63 Alcoholic Drug abuse Hepatitis C Son No problems noted. Son [id number] transgender person PCOS (polycystic ovarian syndrome) Social History household members: spouse Smoking Status: Never smoker alcohol intake: current Discharge Plan Discharge Plan Patient Disposition: Home Provider Discharge Comment: No stroke was found on MRI of your brain. No blocka ges were also seen on the MRI of your neck. We checked your cholesterol and it was elevated despite being on lipitor so I have raised it to 40mg nightly which is the preferred dose. Your TSH was normal. Also we checked you for diabetes and you have prediabetes with an A1c of 6%. Diabetes is diagnosed at 6.5% or higher. So you will want to consider diet changes and exercise to improve this. Lastly your blood pressure was quite elevated and you are on metoprolol which is a weak BP medication so I have added losartan for better blood pressure control. Continue your xarelto. Discharge orders & Medications Prescriptions: New losartan 25 mg tablet 25 mg PO DAILY Qty: 30 0RF atorvastatin [Lipitor] 40 mg tablet 40 mg PO BEDTIME Qty: 30 0RF Continued Xarelto 10 mg tablet 10 mg PO DAILY levothyroxine [Synthroid] 50 mcg tablet 50 mcg PO DAILY Qty: 90 3RF metoprolol succinate 25 mg tablet extended release 24 hr See Rx Instructions .ROUTE .COMPLEX Qty: 90 3RF Dose Instruction: TAKE 1 TABLET DAILY Rx Instructions: TAKE 1 TABLET DAILY acetaminophen 325 mg Tablet 650 mg PO Q6H PRN (Reason: pain) cyclobenzaprine 5 mg tablet 5 mg PO BEDTIME Discontinued atorvastatin 10 mg tablet 10 mg PO BEDTIME Qty: 90 0RF Follow up/Referrals: Essence Erickson MD [Primary Care Provider] - Visit Report/Discharge Packet Instructions: Atorvastatin, Losartan Discharge Data Primary Care Provider: Essence Erickson Attending Provider: Rahul Ruiz VTE Deep Vein Thrombosis/Pulmonary Embolism Present on Admission: No
--- NOTE | 2022-06-01 09:22 | CM.DANOTE ---
Initial DCP Assessment Note Pt is a 66 yo female, resident of [facility]: past medical history of pulmonary embolism on Xarelto, hyperlipidemia, hypothyroidism, and MILLICENT who received her COVID booster yesterday and then presented to the ED for 10 minutes of right-sided facial numbness which developed 3 hours after the booster Patient admitted obs for TIA r/o and all imaging normal, discharged home to the care of her spouse w/close outpatient f/u recommended PCP: Essence Erickson Payer: YAS/Jacklyn No barriers identified at this time to patient's safe discharge home w/family to assist; close outpatient f/u recommended. 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 Yes Advance Directives on File No: states full code History Provided By Patient,Medical Record Prior Living Arrangements House Household Members spouse Type of transporation used prior to Drives own vehicle admit Independent with ADL's Yes Is patient alert and oriented? Yes Barriers to Discharge No Comment Home w/spouse, close outpatient f/u recommended Discharge Plan Home Transportation Arrangement Spouse
--- NOTE | 2022-06-01 10:51 | PC.NURSE ---
Pt dressed and ready for d/c home. Pt to be transported via POV with . Tele removed and IV removed. Pt denies having any medications held at the hospital pharmacy and denies having personal items kept in the safe. Discussed d/c instructions with the pt and answered questions. Provided education about stroke s/s, new medications atorvastatin and losartan. Pt taken out via wheel chair by RICH.
== END 2022-06-01 10:54 | disposition home or self-care (01) ==
LOC: ED 16:58 → AC 17:19
PROVIDERS: Admitting Provider Student in an Organized Health Care Education/Training Program; Emergency Provider Physician Assistant Medical; PCP Family Medicine; Referring Provider Physician Assistant Medical; Visit Provider Student in an Organized Health Care Education/Training Program
DX: R20.0 Anesthesia of skin (principal); I10 Essential (primary) hypertension; E78.5 Hyperlipidemia, unspecified; E03.9 Hypothyroidism, unspecified; G47.33 Obstructive sleep apnea (adult) (pediatric); M48.061 Spinal stenosis, lumbar region without neurogenic claudication; Z79.01 Long term (current) use of anticoagulants; Z86.711 Personal history of pulmonary embolism; Z20.822 Contact with and (suspected) exposure to COVID-19
CPT/HCPCS: 36415; 70450; 70548; 70553; 80048; 80053; 80061; 82550; 83036; 83735; 84443; 84484; 85025; 87635; 93005; 99284; C9803; G0378; A9579; C8929; Q9957

== ENCOUNTER → 2022-06-12 17:18 | Outpatient (CLI) | payer MEDICARE, OTHER, SELFPAY ==
[2022-05-31 19:14] VITALS: BMI 36.1
--- NOTE | 2022-06-12 17:21 | DI.US.S_ITS ---
PROCEDURE: US RENAL COMPLETE INDICATIONS: Right back pain, rule out kidney stone or other abn. TECHNIQUE: Real-time scanning was performed of the kidneys and bladder, with image documentation. COMPARISON: [facility], CT, CT ABDOMEN PELVIS WO CON, 12/26/2020, 16:11. FINDINGS: Kidneys: Kidneys are normal in size. Right kidney measures 11.1 cm long; left kidney measures 12.5 cm long. Right renal cortical thickness is 1.4 cm; left renal cortical thickness is 1.6 cm. Renal cortical echotexture is normal. No hydronephrosis or nephrolithiasis. No suspicious solid mass lesions. Bladder: Pre-void bladder volume is 247 mL. Post-void residual is 3 mL. Pre-void images demonstrate no intraluminal masses or stones. On pre-void images, both ureteral jets are noted with color Doppler interrogation. (Of note, ureteral jets may not be detectable in up to 25% of cases due to insufficient differences in specific gravity between ureteral and bladder urine). Miscellaneous: No free pelvic fluid. IMPRESSION: Normal renal ultrasound exam. A cause for right back pain is not identified. Dictated by: Fauzia Lopez M.D. on 06/13/2022 at 15:45 Approved by: Fauzia Lopez M.D. on 06/13/2022 at 15:47
== END ==
PROVIDERS: PCP Nurse Practitioner; Referring Provider Nurse Practitioner; Visit Provider Nurse Practitioner
DX: M54.50 Low back pain, unspecified (principal)
CPT/HCPCS: 76770

== ENCOUNTER → 2022-07-16 10:07 | Outpatient (CLI) | payer MEDICARE, OTHER, SELFPAY ==
[2022-07-16 11:59] LABS: Creatinine Urine Random 69.5 mg/dL; Protein (Total) Urine Random 5 mg/dL (0-12); Protein Creatinine Ratio Urine 0.07 GRAM/24H
[2022-07-16 12:13] LABS: Microalbumi Creatinin Ratio Ur 14.3 ug/mg CR (<30)
== END ==
PROVIDERS: Family Provider Nurse Practitioner; PCP Nurse Practitioner; Referring Provider Family Medicine; Visit Provider Family Medicine
DX: I10 Essential (primary) hypertension (principal)
CPT/HCPCS: 36415; 82043; 82570; 84156

== ENCOUNTER 2022-08-15 13:17 | Emergency (ER) | payer MEDICARE, OTHER, SELFPAY ==
[2022-08-15 13:36] VITALS: BP 174/90; PULSE 119; RESP 16; TEMP 36.2; O2SAT 98; BMI 36.1
--- NOTE | 2022-08-15 13:43 | DI.US.S_ITS ---
PROCEDURE: US PERIPH VENOUS LOW EXTREM LT INDICATIONS: THIGH PAIN TECHNIQUE: Real-time imaging, as well as color and pulse Doppler interrogation, were performed of the lower extremity deep veins from the inguinal ligament to the popliteal fossa. COMPARISON: None. FINDINGS: The common femoral, femoral and popliteal veins are normally compressible, and free of intraluminal thrombus. Color and pulse Doppler demonstrate normal phasic intraluminal flow. There is normal augmentation response to distal compression maneuver. IMPRESSION: No evidence of DVT in visualized left lower extremity veins. Dictated by: Hugh Montes De Oca M.D. on 08/15/2022 at 14:24 Approved by: Hugh Montes De Oca M.D. on 08/15/2022 at 14:24
--- NOTE | 2022-08-15 14:52 | ED_ITS ---
HPI - Extremity Problem <OSMAN Carter Last Filed: 08/15/22 15:25> General Chief complaint: Extremity Problem,Nontraumatic Stated complaint: flutter in groin history of blood clots sent by DR Lamb Seen by Provider: 08/15/22 14:14 Source: patient Mode of arrival: Ambulatory History of Present Illness HPI Narrative: This is a 67-year-old female presents emergency department due to a ?flutter? in her left anterior proximal thigh. Patient states that she was being seen by Physical therapy and was told to come to the emergency department to rule out DVT as she is a history of DVTs and pulmonary embolisms after bilateral knee replacements. Patient is on long-term Xarelto for anticoagulation recommended by her glazier helper. Patient reports that it feels like it is ?fluttering? in the thigh. Denies any significant pain. Related Data Home Medications Medication Instructions Recorded Confirmed acetaminophen 325 mg tablet 650 mg PO Q6H PRN pain 08/18/19 05/31/22 rivaroxaban 10 mg tablet (Xarelto) 10 mg PO DAILY 07/20/20 07/16/22 betamethasone dipropionate 0.05 % 1 applic topical DAILY PRN 07/16/22 07/16/22 topical cream gabapentin 300 mg capsule 300 mg PO BID 07/16/22 07/16/22 Previous Rx's Medication Instructions Recorded cyclobenzaprine 5 mg tablet 5 mg PO BEDTIME #90 tabs 06/05/22 levothyroxine 50 mcg tablet 50 mcg PO DAILY Hypothyrodisim #90 06/05/22 (Synthroid) tabs atorvastatin 40 mg tablet (Lipitor) 40 mg PO BEDTIME #90 tabs 07/17/22 losartan 25 mg tablet 25 mg PO DAILY #90 tabs 07/17/22 Allergies Allergy/AdvReac Type Severity Reaction Status Date / Time diazepam Allergy Severe eyes Verified 08/15/22 13:36 swelled shut, hard to breath epinephrine Allergy Severe SEIZURES Verified 08/15/22 13:36 clindamycin Allergy Mild RASH Verified 08/15/22 13:36 doxycycline Allergy Unknown RASH Verified 08/15/22 13:36 azithromycin AdvReac Unknown THROW UP Verified 08/15/22 13:36 CT Contrast/Dye Allergy Severe Difficulty Uncoded 07/16/22 10:21 Breathing Review of Systems <OSMAN Carter Filed: 08/15/22 15:25> Review of Systems Narrative: GENERAL: Denies chills, fatigue, malaise, fever, sweats. HEENT: Denies sinus pain, ear pain, sore throat, difficulty swallowing, dizziness. RESPIRATORY: Denies dyspnea, cough, wheezing, hemoptysis, sputum. CARDIOVASCULAR: Denies chest pain, palpitations, orthopnea, edema, GASTROINTESTINAL: Denies nausea, vomiting, abdominal pain, diarrhea, constipation, melena. : Denies dysuria, frequency, incontinence, hematuria, urinary retention. MUSCULOSKELETAL: Left thigh abnormal sensation SKIN: Denies rash, skin lesions, or other NEUROLOGIC: Denies weakness, headache, numbness, change in speech, confusion, seizures, incoordination. PSYCHIATRIC: No concerning psychosocial issues. 12 point review of systems is negative except for those stated above Patient History <Fantasma Negrete PA-C - Last Filed: 08/15/22 15:25> Medical History Abnormal Pap smear of cervix Acne (1969) Anaphylactic reaction DVT (deep venous thrombosis) (~2013) DVT of axillary vein, chronic left Eczema Enteritis Fibroids Gastro-esophageal reflux disease with esophagitis Hayfever (1966) Hepatitis B (~1976) History of ovarian cyst History of torn meniscus of left knee (2012) Hyperlipidemia Hypothyroidism (2009) Infertility Irritable larynx syndrome Lichen planus Measles Mumps Obesity (BMI 30-39.9) Obstructive sleep apnea of adult Osteoarthritis Osteoarthritis of right knee PCOS (polycystic ovarian syndrome) (1974) Plantar warts Postoperative pulmonary embolism (2013) Retinal detachment, left (2010) Retinal detachment, right (2011) Rosacea (2008) Schatzki's ring of distal esophagus (~03/20/21) Sensorineural hearing loss, bilateral Shoulder pain Sleep apnea (~2015) Subungual hematoma of great toe Surgical History Anesthesia History of eye surgery (02/27/11) History of eye surgery (05/15/12) History of knee replacement (05/13/14) History of sinus surgery (1987) History of surgical removal of meniscus of knee (09/03/13) History of tonsillectomy (1964) Status post delivery (12/1984) Status post delivery (06/1981) Status post endometrial ablation (2005) Status post loop electrosurgical excision procedure (LEEP) of cervix (01/2006) Status post surgical removal of neoplasm of skin (1957) Family History Father Heart disease Mother Osteoporosis Stroke Celiac disease Glaucoma COPD (chronic obstructive pulmonary disease) Emphysema lung Sister Age: 63 Alcoholic Drug abuse Hepatitis C Son No problems noted. Son [id number] transgender person PCOS (polycystic ovarian syndrome) Social History household members: spouse Smoking Status: Never smoker alcohol intake: current Smoking Status: Never smoker alcohol intake frequency: holidays/special occasions only Substance Use Type: does not use Exam <Fantasma Negrete PA-C - Last Filed: 08/15/22 15:25> Narrative Exam Narrative: GENERAL: Well-developed patient, in mild distress. HEAD: Atraumatic. Normocephalic. EYES: Pupils equal round and reactive. Extraocular motions intact. No scleral icterus. No injection or drainage. ENT: Nose without bleeding, purulent drainage. Throat without erythema, tonsillar hypertrophy or exudate. Airway patent. NECK: Trachea midline. Non tender CARDIOVASCULAR: Regular rate and rhythm without murmurs, gallops, or rubs. RESPIRATORY: Clear to auscultation. Breath sounds equal bilaterally. No wheezes, rales, or rhonchi. GASTROINTESTINAL: Abdomen soft, non-tender, nondistended. EXTREMITIES: No tenderness to palpation to the anterior thigh BACK: Nontender without deformity or crepitance. No flank tenderness. NEURO: AOx3. SKIN: No rash or erythema of visible areas Initial Vital Signs Initial Vital Signs: Vital Signs Temperature 97.1 F L 08/15/22 13:36 Pulse Rate 119 H 08/15/22 13:36 Respiratory Rate 16 08/15/22 13:36 Blood Pressure 174/90 H 08/15/22 13:36 Pulse Oximetry 98 08/15/22 13:36 Oxygen Delivery Method 08/15/22 13:36 <Katalina Sánchez DO - Last Filed: 08/15/22 20:07> Initial Vital Signs Initial Vital Signs: Vital Signs Temperature 97.1 F L 08/15/22 13:36 Pulse Rate 119 H 08/15/22 13:36 Respiratory Rate 16 08/15/22 13:36 Blood Pressure 174/90 H 08/15/22 13:36 Pulse Oximetry 98 08/15/22 13:36 Oxygen Delivery Method 08/15/22 13:36 Course <Fantasma Negrete PA-C - Last Filed: 08/15/22 15:25> Orders Ordered: ED Orders 08/15/22 13:43 US periph venous low extrem lt Stat 08/15/22 14:27 EKG-12 Lead Stat Discontinued Medications Morphine Sulfate (Morphine 2 Mg/Ml Inj) 2 mg IV NOW ONE Stop: 08/15/22 14:51 Last Admin: 08/15/22 14:55 Dose: Not Given Documented By: RB Ondansetron HCl (Ondansetron 4 Mg/2 Ml Inj) 4 mg IV NOW ONE Stop: 08/15/22 14:49 Last Admin: 08/15/22 14:55 Dose: Not Given Documented By: RB Vital Signs Vital signs: Vital Signs - 8 hr 08/15/22 13:36 08/15/22 15:38 Temperature 97.1 F L Pulse Rate 119 H 98 H Respiratory Rate 16 16 Blood Pressure 174/90 H 146/81 H Pulse Oximetry 98 99 Oxygen Delivery Method Room Air Room Air <Katalina Sánchez DO - Last Filed: 08/15/22 20:07> Orders Ordered: ED Orders 08/15/22 13:43 US periph venous low extrem lt Stat 08/15/22 14:27 EKG-12 Lead Stat Discontinued Medications Morphine Sulfate (Morphine 2 Mg/Ml Inj) 2 mg IV NOW ONE Stop: 08/15/22 14:51 Last Admin: 08/15/22 14:55 Dose: Not Given Documented By: RB Ondansetron HCl (Ondansetron 4 Mg/2 Ml Inj) 4 mg IV NOW ONE Stop: 08/15/22 14:49 Last Admin: 08/15/22 14:55 Dose: Not Given Documented By: RB Vital Signs Vital signs: Vital Signs - 8 hr 08/15/22 13:36 08/15/22 15:38 Temperature 97.1 F L Pulse Rate 119 H 98 H Respiratory Rate 16 16 Blood Pressure 174/90 H 146/81 H Pulse Oximetry 98 99 Oxygen Delivery Method Room Air Room Air MDM - Extremity (Nontraumatic) <Fantasma Negrete PA-C - Last Filed: 08/15/22 15:25> Imaging Data US - DVT: Radiologist's Impression: [address] [id number] ReportSigned Patient: Kristi Long LMR#: [id number]: 5Acct:[id number]/Sex: 67 / FDate of Service: 08/15/22Loc: EDAccession Number: [id number] Procedure: US perip venous low extrem lt Ordering Provider: Katalina Sánchez D.O. PROCEDURE: US PERIP VENOUS LOW EXTREM LT INDICATIONS: THIGH PAIN TECHNIQUE: Real-time imaging, as well as color and pulse Doppler interrogation, were performed of the lower extremity deep veins from the inguinal ligament to the popliteal fossa. COMPARISON: None. FINDINGS: The common femoral, femoral and popliteal veins are normally compressible, and free of intraluminal thrombus. Color and pulse Doppler demonstrate normal phasic intraluminal flow. There is normal augmentation response to distal compression maneuver. IMPRESSION: No evidence of DVT in visualized left lower extremity veins. Dictated by: Hugh Montes De Oca M.D. on 08/15/2022 at 14:24 Approved by: Hugh Montes De Oca M.D. on 08/15/2022 at 14:24 [facility] Narrative Medical decision making narrative: This is a 67-year-old female presenting to urgent due to concerns for left lower extremity DVT as she is a history. She has been taking her long-term Xarelto as prescribed. No obvious signs of DVT on physical exam. Left lower extremity ultrasound was negative for DVT. Suspect the sensation she is experiencing in her groin area is a kind of muscle twitching. Recommended rest and continued work with a physical therapist. <Katalina Sánchez DO - Last Filed: 08/15/22 20:07> ECG Data Interpretation: VALENTINO-normal sinus rhythm rate 101 MS interval 154 QRS [address] changes, no prior Discharge Plan Departure Patient Disposition: Home Clinical Impression: Muscle twitch Activity Restrictions/Additional Instructions: Thank you for coming to the [facility] Emergency Department today. The ultrasound was negative for any kind of blood clot in your leg. I suspect that the sensation your feeling in your thigh is a type of muscular twitching. Please rest, drink plenty of fluids, and I suspect they should improve over time. I hope you feel better soon. Prescriptions: No Action Xarelto 10 mg tablet 10 mg PO DAILY atorvastatin [Lipitor] 40 mg tablet 40 mg PO BEDTIME Qty: 90 3RF Rx Instructions: Take 1 tab daily for elevated cholesterol losartan 25 mg tablet 25 mg PO DAILY Qty: 90 3RF Rx Instructions: Take 1 tab daily for hypertension, goal for BP is under 130/80 cyclobenzaprine 5 mg tablet 5 mg PO BEDTIME Qty: 90 3RF levothyroxine [Synthroid] 50 mcg tablet 50 mcg PO DAILY Qty: 90 3RF gabapentin 300 mg capsule 300 mg PO BID betamethasone dipropionate 0.05 % cream 1 applic topical DAILY PRN acetaminophen 325 mg Tablet 650 mg PO Q6H PRN (Reason: pain) Referrals: Daniela Greer ARNP [Primary Care Provider] - Visit Report Forms: Patient Portal/API <Katalina Sánchez DO - Last Filed: 08/15/22 20:07> Cosign ED Attending Daljitature Attestation: I was immediately available in the department for consultation. Documentation has been reviewed. I agree with assessment and plan.
[2022-08-15 15:38] VITALS: BP 146/81; PULSE 98; RESP 16; O2SAT 99
== END 2022-08-15 15:41 | disposition home or self-care (01) ==
PROVIDERS: Emergency Provider Physician Assistant Medical; Family Provider Nurse Practitioner; PCP Nurse Practitioner
DX: R25.3 Fasciculation (principal); R07.9 Chest pain, unspecified; Z79.01 Long term (current) use of anticoagulants
CPT/HCPCS: 93005; 93971; 99281; 99284

== ENCOUNTER 2022-11-19 08:15 | Outpatient (RCR) | payer MEDICARE, OTHER, SELFPAY ==
--- NOTE | 2022-08-14 15:36 | PT.OIE ---
Current Diagnoses Spondylosis without myelopathy or radiculopathy, site unspecified (08/14/22) Spinal stenosis, lumbar region without neurogenic claudication (08/14/22) Low back pain, unspecified (08/14/22) Difficulty in walking, not elsewhere classified (08/14/22) Abnormal posture (08/14/22) Weakness (08/14/22) Past Medical History (Last Reviewed 08/01/22 @ 12:56 by Drew Martinez MD) Abnormal Pap smear of cervix Acne (1969) Anaphylactic reaction DVT (deep venous thrombosis) (~2013) DVT of axillary vein, chronic left Eczema Enteritis Fibroids Gastro-esophageal reflux disease with esophagitis Hayfever (1966) Hepatitis B (~1976) History of ovarian cyst History of torn meniscus of left knee (2012) Hyperlipidemia Hypothyroidism (2009) Infertility Irritable larynx syndrome Lichen planus Measles Mumps Obesity (BMI 30-39.9) Obstructive sleep apnea of adult Osteoarthritis Osteoarthritis of right knee PCOS (polycystic ovarian syndrome) (1974) Plantar warts Postoperative pulmonary embolism (2013) Retinal detachment, left (2010) Retinal detachment, right (2011) Rosacea (2008) Schatzki's ring of distal esophagus (~03/20/21) Sensorineural hearing loss, bilateral Shoulder pain Sleep apnea (~2015) Subungual hematoma of great toe Past Surgical History (Last Reviewed 08/01/22 @ 12:56 by Drew Martinez MD) Anesthesia History of eye surgery (02/27/11) History of eye surgery (05/15/12) History of knee replacement (05/13/14) History of sinus surgery (1987) History of surgical removal of meniscus of knee (09/03/13) History of tonsillectomy (1964) Status post delivery (12/1984) Status post delivery (06/1981) Status post endometrial ablation (2005) Status post loop electrosurgical excision procedure (LEEP) of cervix (01/2006) Status post surgical removal of neoplasm of skin (1957) Visit Care Team Role Provider Type MARIBEL Saavedra Attending Provider Advanced Development Editor Family Provider Primary Care Provider Referring Provider Specialty: Family Practice Address: [address] [place] [address], [id number] Email: [email or web address] Physical Therapy Initial Evaluation PT-OP-A Visit Information Start: 08/09/22 18:13 Freq: Status: Active Protocol: Document 08/14/22 13:49 [facility] (Rec: 08/14/22 15:36 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 (Rec: 08/14/22 15:36 [facility] [id number]) Current Condition History of Current Condition Onset Date 4 months Current Complaints LBP History of Current Condition Pt reports back pain that she tried PT at [facility] for but it was feeling worse when she went. She has had back pain for about 4 months now. She saw a neurologist and was put on gabepentin and she takes it 2x /day and mm relaxant at night, which she is considering taking it during the day. She has beeen on meds since end of May and that has helped her sleep more. She had a TIA on Jun 01. it was after her 5th booster. She had face numbness , difficulty getting up and head SB to L. She has been having L groin fluttering/ pulsating that has gotten really annoying in the last week. It does it in all positions but sitting may be worst. It has periods where it starts. She gets shooting pain down legs from ant thighs into ant shins. It isn't constant but it is frequent. She walks 10-12 blocks daily but that is less than what she typically does around 16 blocks or so. In the last week , back pain has inc more. She went to a gathering last night and couldn't stay d/t discomfort in the chairs. Pt has hx of B TKA but they are pretty good. She was riding a bike this spring/summer and that helped a lot. Still slow w/down stairs. It is easier on her back when she keeps her RLE out in front of her and less painful on back. When 1st gets up, she limps a little. Prior Treatments and Tests MRI -see scanned into chart; PT at [facility] Future Testing and Treatments Planned neurosurgeon suggested possible injection if PT not helping-no scheduled out Treatment Goals Patient/Caregiver Goals Have less pain, get back to 16 block walks, be able to pick things up off the floor, be able do housekeeping PT-OP-C Subjective Start: 08/09/22 18:13 Freq: Status: Active Protocol: Document 08/14/22 13:49 [facility] (Rec: 08/14/22 15:36 [id number] Patient Questionnaires Oswestry Low Back Index Oswestry Score OP-PT Pain Assessment Location back pain Pain Location Details lmbar spine B, R lat torso Frequency Constant Variations/Patterns down ant thighs and shins frequently Other Pain Aggravating Factors later in the day, more activity she does Pain Alleviating Factors Heat Other Pain Alleviating Factors in favorite chair w/feet up PT-OP-D Balance Start: 08/09/22 18:13 Freq: Status: Active Protocol: Document 08/14/22 13:49 [facility] (Rec: 08/14/22 15:36 [id number] Balance Tests Single Limb Standing Single Limb- Right 7 sec w/lat lean Single Limb- Left 6 sec w/lat lean PT-OP-F Manual Assessment Start: 08/09/22 18:13 Freq: Status: Active Protocol: Document 08/14/22 13:49 [facility] (Rec: 08/14/22 15:36 [id number]) Manual Assessments Soft Tissue Assessment Soft Tissue Mobility Assessment tightness B glutes, R>L QL, B paraspinals PT-OP-G Mobility & Gait Start: 08/09/22 18:13 Freq: Status: Active Protocol: Document 08/14/22 13:49 [facility] (Rec: 08/14/22 15:36 [facility] [id number]) OP Gait Assessment Comments Gait Comments Dec push off , dec RLE stance time, REaches fwd w/RLE , tries to keep pelvis rigid PT-OP-J Posture/Palpation/Skin Start: 08/09/22 18:13 Freq: Status: Active Protocol: Document 08/14/22 13:49 [facility] (Rec: 08/14/22 15:36 [facility] [id number]) Posture Evaluation Slade Postural Classification System Slade Postural Classifications Posterior/Anterior Vertebral Compression Test 0 Lumbar Protective Mechanism Left AP 0 Lumbar Protective Mechanism Right AP 0 Lumbar Protective Mechanism Left PA 1 Lumbar Protective Mechanism Right PA 1 Comments Posture Comments L pelvic shear, L torso rotation, R iliac crest higher than L, equal greater troch height, R LE ER PT-OP-K Range of Motion Start: 08/09/22 18:13 Freq: Status: Active Protocol: Document 08/14/22 13:49 [facility] (Rec: 08/14/22 15:36 [facility] [id number]) Lumbar Spine Range of Motion Lumbar Spine Active Percentage Flexion 5 Extension 40 Rotation Left 40 Rotation Right 10 Lateral Flexion Left 40 Lateral Flexion Right 20 Comments ipsi pain w/SB, pain w/flex & ext, more HS use w/flex fwd, limited spine motion; pain in R side w/rot B PT-OP-L Special Tests Start: 08/09/22 18:13 Freq: Status: Active Protocol: Document 08/14/22 13:49 [facility] (Rec: 08/14/22 15:36 [facility] [id number]) Special Tests Lumbar Spine Special Tests Straight Leg Raise Test Results neg mild HS tightness Slump Test Results neg B PT-OP-M Strength Start: 08/09/22 18:13 Freq: Status: Active Protocol: Document 08/14/22 13:49 [facility] (Rec: 08/14/22 15:36 [facility] [id number]) Hip Strength Hip Manual Muscle Testing Right Flexion (L2) 3+ Fair+ Extension (S1) 3 Fair Abduction 4 Good External Rotation 3+ Fair+ Internal Rotation 4- Good- Left Flexion (L2) 4- Good- Extension (S1) 4- Good- Abduction 4 Good External Rotation 3+ Fair+ Internal Rotation 4+ Good+ Knee Strength Knee Manual Muscle Testing Right Flexion (S2) 5 Normal Extension (L3) 4 Good Left Flexion (S2) 5 Normal Extension (L3) 4 Good Ankle/Foot Strength Ankle and Foot Manual Muscle Testing Right Dorsiflexion (L4) 5 Normal Plantarflexion (S1) 4 Good Comments 13 heel raises Left Dorsiflexion (L4) 5 Normal Plantarflexion (S1) 4 Good Comments 14 heel raises PT-OP-Q Treatments Start: 08/09/22 18:13 Freq: Status: Active Protocol: Document 08/14/22 13:49 [facility] (Rec: 08/14/22 15:36 [facility] [id number]) Self-Care/Home Management Treatment Education Caregiver Education pt and educated that PT does have some concern re: L hip fluttering/pulsating d /t pt's history of DVTs and recent possible TIA and no inc or dec symptoms w/MMT, AROM or PROM or any other testing. Encouraged pt to follow up w/ her primary and PT called primary and left message re: this concern. PT-OP-T Assessment and Plan Start: 08/09/22 18:13 Freq: Status: Active Protocol: Document 08/14/22 13:49 [facility] (Rec: 08/14/22 15:36 [facility] [id number]) Physical Therapy Assessment Rehab Potential Rehabilitation Potential Good Evaluation Complexity Number of Personal Factors/Comorbidities 3 or More Number of Body Systems Impaired 4 or More Clinical Presentation at Evaluation Evolving Impairments Impairments Activity Tolerance,Balance, Functional Activities, Functional Mobility,Gait,Pain, Posture,ROM,Soft Tissue Mobility,Strength,Transfers Goals posture Alf Goal (LTG) Pt will show improved postural alignment in order to dec pain w/sitting/standing for long periods by scoring at least 3/5 on VCT. LTG Duration 11/05 strength Short Term Goal (STG) pt will be indep w/HEP STG Duration 09/24 Laboratory Aide Goal (LTG) Pt will show improved strength w/MMT of at least 4+/5 in all direction and LPM at least 3/ 5 in all planes to show improved stability to allow pt to do typical daily activities. LTG Duration 11/05 housework Alf Goal (LTG) Pt will be able to return to all typical housework w/o inc pain. 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 LTG Duration 11/06/22 LYUDMILA Impairment 12/50 Short Term Goal (STG) Pt will improve LYUDMILA score to no greater than 8/50 to show impoved functional ability. STG Duration 09/26 Laboratory Aide Goal (LTG) Pt will improve LYUDMILA score to no greater than 3/50 to show impoved functional ability. LTG Duration 11/06 Assessment Summary Assessment Pt presents w/B LBP with gradual onset but inc pain in the past week. She has tried PT at another clinic but felt like pain got worse instead of better. 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 She has impaired balance , dec ROM of spine, dec core strength and LE strength along w/impaired gait. Her MRI does show findings of some canal stenosis and neurosurgeon suggested injection if PT does not help w/pain. Pt currently taking gabapentin and a mm relaxor for pain. She has new pulsating/fluttering discomfort in L hip taht is not made worse or better w/ROM or MMT or any specific activites. This started about 1 week ago. Message left w/ provider and pt encouraged to contact provider re: this also . Pt would benefit from skilled PT for her deficits and to dec pain in order to improve function. Physical Therapy Plan Frequency and Duration Duration of treatment (weeks) 12 Plan of Care Start Date 08/14/22 Plan of Care End Date 11/06/22 Therapeutic Interventions Therapeutic Interventions Aquatic Therapy,Balance Training,Gait Training,Home Exercise Program,Joint Mobilizations,Manual Therapy, Neuromuscular Re-education, Orthotic/Prosthetic Management ,Patient/Caregiver Education, Self-Care/Home Management,Soft Tissue Mobilization,Taping, Therapeutic Activities, Therapeutic Exercises Modalities Cold Pack/Ice Massage,Electric Stimulation,Hot Packs, Traction- Mechanical, Ultrasound Next Visit Focus/Plan Next Note Type Treatment Note Next Visit Plan supine core exercises for HEP, STM to QL & lumbar paraspinals
--- NOTE | 2022-08-14 15:36 | PT.OPPOC ---
Physical, Occupational & Speech Therapy At [facility] Current Diagnoses Spondylosis without myelopathy or radiculopathy, site unspecified (08/14/22) Spinal stenosis, lumbar region without neurogenic claudication (08/14/22) Low back pain, unspecified (08/14/22) Difficulty in walking, not elsewhere classified (08/14/22) Abnormal posture (08/14/22) Weakness (08/14/22) Visit Care Team Role Provider Type MARIBEL Saavedra Attending Provider Advanced Aquaculture Farm Manager Family Provider Primary Care Provider Referring Provider Specialty: [facility] Practice Address: [address] [place] [address], [facility] Email: [email or web address] Plan Of Care PT-OP-T Assessment and Plan Start: 08/09/22 18:13 Freq: Status: Active Protocol: Document 08/14/22 13:49 [facility] (Rec: 08/14/22 15:36 [facility] [id number]) Physical Therapy Assessment Rehab Potential Rehabilitation Potential Good Evaluation Complexity Number of Personal Factors/Comorbidities 3 or More Number of Body Systems Impaired 4 or More Clinical Presentation at Evaluation Evolving Impairments Impairments Activity Tolerance,Balance, Functional Activities, Functional Mobility,Gait,Pain, Posture,ROM,Soft Tissue Mobility,Strength,Transfers Goals posture Assembler Convertible Top Goal (LTG) Pt will show improved postural alignment in order to dec pain w/sitting/standing for long periods by scoring at least 3/5 on VCT. LTG Duration 11/05 strength Short Term Goal (STG) pt will be indep w/HEP STG Duration 09/24 Assembler Convertible Top Goal (LTG) Pt will show improved strength w/MMT of at least 4+/5 in all direction and LPM at least 3/ 5 in all planes to show improved stability to allow pt to do typical daily activities. LTG Duration 11/05 housework Assembler Convertible Top Goal (LTG) Pt will be able to return to all typical housework w/o inc pain. LTG Duration 11/06/22 activities Short Term Goal (STG) Pt will be able to returnt o full 16 block walks w/o inc pain greater than 2/10 STG Duration 09/24/22 Assembler Convertible Top Goal (LTG) Pt will be able to squat to pickling operator objects from floor w/o inc pain. LTG Duration 11/06/22 LYUDMILA Impairment 12/50 Short Term Goal (STG) Pt will improve LYUDMILA score to no greater than 8/50 to show impoved functional ability. STG Duration 2/ Group Home Goal (LTG) Pt will improve LYUDMILA score to no greater than 3/50 to show impoved functional ability. LTG Duration 11/06 Assessment Summary Assessment Pt presents w/B LBP with gradual onset but inc pain in the past week. She has tried PT at another clinic but felt like pain got worse instead of better. 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 She has impaired balance , dec ROM of spine, dec core strength and LE strength along w/impaired gait. Her MRI does show findings of some canal stenosis and neurosurgeon suggested injection if PT does not help w/pain. Pt currently taking gabapentin and a mm relaxor for pain. She has new pulsating/fluttering discomfort in L hip taht is not made worse or better w/ROM or MMT or any specific activites. This started about 1 week ago. Message left w/ provider and pt encouraged to contact provider re: this also . Pt would benefit from skilled PT for her deficits and to dec pain in order to improve function. Physical Therapy Plan Frequency and Duration Duration of treatment (weeks) 12 Plan of Care Start Date 08/14/22 Plan of Care End Date 11/06/22 Therapeutic Interventions Therapeutic Interventions Aquatic Therapy,Balance Training,Gait Training,Home Exercise Program,Joint Mobilizations,Manual Therapy, Neuromuscular Re-education, Orthotic/Prosthetic Management ,Patient/Caregiver Education, Self-Care/Home Management,Soft Tissue Mobilization,Taping, Therapeutic Activities, Therapeutic Exercises Modalities Cold Pack/Ice Massage,Electric Stimulation,Hot Packs, Traction- Mechanical, Ultrasound Next Visit Focus/Plan Next Note Type Treatment Note Next Visit Plan supine core exercises for HEP, STM to QL & lumbar paraspinals Plan of Care Dates Plan of Care Start Date 08/14/22 Plan of Care End Date 11/06/22 Electronically Signed by: Katlyn Trevino, PT 08/14/22 [id number] If you are in agreement with this Plan of Care, please return a signed and dated copy. I have reviewed this Plan of Care and certify that the skilled therapy services above are required to meet the patient?s needs. Physician Signature Date Printed Name and Credentials Clinical Instructor Signature Printed Name and Credentials
--- NOTE | 2022-08-15 10:34 | PT.OTN ---
Addendum entered and electronically signed by Katlyn Trevino PT 08/15/22 17:40: Pt was sent by PT to go to primary clinic after IE 08/14 to discuss hip sensation and saw triage nurse who set her up an appt w/Dr. Desai for today. Original Note: Current Diagnoses Spondylosis without myelopathy or radiculopathy, site unspecified (08/15/22) Spinal stenosis, lumbar region without neurogenic claudication (08/15/22) Low back pain, unspecified (08/15/22) Difficulty in walking, not elsewhere classified (08/15/22) Abnormal posture (08/15/22) Weakness (08/15/22) Physical Therapy Treatment Note PT-OP-A Visit Information Start: 08/09/22 18:13 Freq: Status: Active Protocol: Document 08/15/22 09:09 [facility] (Rec: 08/15/22 10:34 [facility] [id number]) Out-Patient Physical Therapy Visit Information Visit Information Visit Type Treatment Note Visit Note 10/05 Visit Start Time 09:47 Visit Stop Time 10:29 Total Visit Minutes 42 Visit Number 2 Number of ONLINE MERCHANT Visits 0 PT-OP-B Current Condition Start: 08/09/22 18:13 Freq: Status: Active Protocol: Document 08/14/22 13:49 [facility] (Rec: 08/14/22 15:36 [facility] [id number]) Current Condition History of Current Condition Onset Date 4 months Current Complaints LBP History of Current Condition Pt reports back pain that she tried PT at [facility] for but it was feeling worse when she went. She has had back pain for about 4 months now. She saw a neurologist and was put on gabepentin and she takes it 2x /day and mm relaxant at night, which she is considering taking it during the day. She has beeen on meds since end of May and that has helped her sleep more. She had a TIA on Jun 01. it was after her 5th booster. She had face numbness , difficulty getting up and head SB to L. She has been having L groin fluttering/ pulsating that has gotten really annoying in the last week. It does it in all positions but sitting may be worst. It has periods where it starts. She gets shooting pain down legs from ant thighs into ant shins. It isn't constant but it is frequent. She walks 10-12 blocks daily but that is less than what she typically does around 16 blocks or so. In the last week , back pain has inc more. She went to a gathering last night and couldn't stay d/t discomfort in the chairs. Pt has hx of B TKA but they are pretty good. She was riding a bike this spring/summer and that helped a lot. Still slow w/down stairs. It is easier on her back when she keeps her RLE out in front of her and less painful on back. When 1st gets up, she limps a little. Prior Treatments and Tests MRI -see scanned into chart; PT at [facility] Future Testing and Treatments Planned neurosurgeon suggested possible injection if PT not helping-no scheduled out Treatment Goals Patient/Caregiver Goals Have less pain, get back to 16 block walks, be able to pick things up off the floor, be able do housekeeping PT-OP-C Subjective Start: 08/09/22 18:13 Freq: Status: Active Protocol: Document 08/15/22 09:09 [facility] (Rec: 08/15/22 10:34 [id number]-PT Subjective Patient Comments Patient Comments Pt scheduled to see doctor later today. PT-OP-D Balance Start: 08/09/22 18:13 Freq: Status: Active Protocol: Document 08/14/22 13:49 [facility] (Rec: 08/14/22 15:36 [facility] [id number]) Balance Tests Single Limb Standing Single Limb- Right 7 sec w/lat lean Single Limb- Left 6 sec w/lat lean PT-OP-F Manual Assessment Start: 08/09/22 18:13 Freq: Status: Active Protocol: Document 08/14/22 13:49 [facility] (Rec: 08/14/22 15:36 [facility] [id number]) Manual Assessments Soft Tissue Assessment Soft Tissue Mobility Assessment tightness B glutes, R>L QL, B paraspinals PT-OP-G Mobility & Gait Start: 08/09/22 18:13 Freq: Status: Active Protocol: Document 08/14/22 13:49 [facility] (Rec: 08/14/22 15:36 [facility] [id number]) OP Gait Assessment Comments Gait Comments Dec push off , dec RLE stance time, REaches fwd w/RLE , tries to keep pelvis rigid PT-OP-J Posture/Palpation/Skin Start: 08/09/22 18:13 Freq: Status: Active Protocol: Document 08/14/22 13:49 [facility] (Rec: 08/14/22 15:36 [id number] Posture Evaluation [facility] Postural Classification System [facility] Postural Classifications Posterior/Anterior Vertebral Compression Test 0 Lumbar Protective Mechanism Left AP 0 Lumbar Protective Mechanism Right AP 0 Lumbar Protective Mechanism Left PA 1 Lumbar Protective Mechanism Right PA 1 Comments Posture Comments L pelvic shear, L torso rotation, R iliac crest higher than L, equal greater troch height, R LE ER PT-OP-K Range of Motion Start: 08/09/22 18:13 Freq: Status: Active Protocol: Document 08/14/22 13:49 [facility] (Rec: 08/14/22 15:36 [id number] Lumbar Spine Range of Motion Lumbar Spine Active Percentage Flexion 5 Extension 40 Rotation Left 40 Rotation Right 10 Lateral Flexion Left 40 Lateral Flexion Right 20 Comments ipsi pain w/SB, pain w/flex & ext, more HS use w/flex fwd, limited spine motion; pain in R side w/rot B PT-OP-L Special Tests Start: 08/09/22 18:13 Freq: Status: Active Protocol: Document 08/14/22 13:49 [facility] (Rec: 08/14/22 15:36 [facility] [id number]) Special Tests Lumbar Spine Special Tests Straight Leg Raise Test Results neg mild HS tightness Slump Test Results neg B PT-OP-M Strength Start: 08/09/22 18:13 Freq: Status: Active Protocol: Document 08/14/22 13:49 [facility] (Rec: 08/14/22 15:36 [facility] [id number]) Hip Strength Hip Manual Muscle Testing Right Flexion (L2) 3+ Fair+ Extension (S1) 3 Fair Abduction 4 Good External Rotation 3+ Fair+ Internal Rotation 4- Good- Left Flexion (L2) 4- Good- Extension (S1) 4- Good- Abduction 4 Good External Rotation 3+ Fair+ Internal Rotation 4+ Good+ Knee Strength Knee Manual Muscle Testing Right Flexion (S2) 5 Normal Extension (L3) 4 Good Left Flexion (S2) 5 Normal Extension (L3) 4 Good Ankle/Foot Strength Ankle and Foot Manual Muscle Testing Right Dorsiflexion (L4) 5 Normal Plantarflexion (S1) 4 Good Comments 13 heel raises Left Dorsiflexion (L4) 5 Normal Plantarflexion (S1) 4 Good Comments 14 heel raises PT-OP-Q Treatments Start: 08/09/22 18:13 Freq: Status: Active Protocol: Document 08/15/22 09:09 [facility] (Rec: 08/15/22 10:34 [facility] [id number]) Therapeutic Exercises Supine Exercises LTR Side bilateral Reps/Minutes 10 TAbd Supine Exercise Name 1. BKFO 2. october 3. heel slides Side bilateral Reps/Minutes 12 ea pelvic tilts Reps/Minutes 15 Manual Therapy Treatment Soft Tissue Mobilization glutes Body Location R Mobilization Type Sustained Pressure Intensity/Depth Moderate Body Position Sidelying lumbar Body Location B ES & QL Mobilization Type Rolling,Strumming Intensity/Depth Moderate Body Position Sidelying PT-OP-T Assessment and Plan Start: 08/09/22 18:13 Freq: Status: Active Protocol: Document 08/15/22 09:09 [facility] (Rec: 08/15/22 10:34 [facility] [id number]) Physical Therapy Assessment Goals posture Group Home Goal (LTG) Pt will show improved postural alignment in order to dec pain w/sitting/standing for long periods by scoring at least 3/5 on VCT. LTG Duration 11/05 strength Short Term Goal (STG) pt will be indep w/HEP STG Duration 09/24 Peer Financial Counselor Goal (LTG) Pt will show improved strength w/MMT of at least 4+/5 in all direction and LPM at least 3/ 5 in all planes to show improved stability to allow pt to do typical daily activities. LTG Duration 11/05 housework Group Home Goal (LTG) Pt will be able to return to all typical housework w/o inc pain. 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 LTG Duration 11/06/22 YLUDMILA Impairment 12/50 Short Term Goal (STG) Pt will improve LYUDMILA score to no greater than 8/50 to show impoved functional ability. STG Duration 09/26 Peer Financial Counselor Goal (LTG) Pt will improve LYUDMILA score to no greater than 3/50 to show impoved functional ability. LTG Duration 11/06 Assessment Summary Assessment Pt did well exercises but required intermittent cues for keeping core engage and being mindful of keeping back stable. Signfiicant tightness notable in back w/soft tissue. Physical Therapy Plan Frequency and Duration Duration of treatment (weeks) 12 Plan of Care Start Date 08/14/22 Plan of Care End Date 11/06/22 Next Visit Focus/Plan Next Note Type Treatment Note Next Visit Plan review supine core exercises for HEP, STM to QL & lumbar paraspinals
--- NOTE | 2022-08-22 13:48 | PT.OTN ---
Current Diagnoses Spondylosis without myelopathy or radiculopathy, site unspecified (08/22/22) Spinal stenosis, lumbar region without neurogenic claudication (08/22/22) Low back pain, unspecified (08/22/22) Difficulty in walking, not elsewhere classified (08/22/22) Abnormal posture (08/22/22) Weakness (08/22/22) Physical Therapy Treatment Note PT-OP-A Visit Information Start: 08/09/22 18:13 Freq: Status: Active Protocol: Document 08/22/22 13:01 [facility] (Rec: 08/22/22 13:48 [facility] [id number]) Out-Patient Physical Therapy Visit Information Visit Information Visit Type Treatment Note Visit Note 11/02 Visit Start Time 13:01 Visit Stop Time 13:54 Total Visit Minutes 53 Visit Number 3 Number of FORENSIC ACCOUNTANT Visits 0 PT-OP-B Current Condition Start: 08/09/22 18:13 Freq: Status: Active Protocol: Document 08/14/22 13:49 [facility] (Rec: 08/14/22 15:36 [facility] [id number]) Current Condition History of Current Condition Onset Date 4 months Current Complaints LBP History of Current Condition Pt reports back pain that she tried PT [facility] for but it was feeling worse when she went. She has had back pain for about 4 months now. She saw a neurologist and was put on gabepentin and she takes it 2x /day and mm relaxant at night, which she is considering taking it during the day. She has beeen on meds since end of May and that has helped her sleep more. She had a TIA on Jun 01. it was after her 5th booster. She had face numbness , difficulty getting up and head SB to L. She has been having L groin fluttering/ pulsating that has gotten really annoying in the last week. It does it in all positions but sitting may be worst. It has periods where it starts. She gets shooting pain down legs from ant thighs into ant shins. It isn't constant but it is frequent. She walks 10-12 blocks daily but that is less than what she typically does around 16 blocks or so. In the last week , back pain has inc more. She went to a gathering last night and couldn't stay d/t discomfort in the chairs. Pt has hx of B TKA but they are pretty good. She was riding a bike this spring/summer and that helped a lot. Still slow w/down stairs. It is easier on her back when she keeps her RLE out in front of her and less painful on back. When 1st gets up, she limps a little. Prior Treatments and Tests MRI -see scanned into chart; PT at [facility] Future Testing and Treatments Planned neurosurgeon suggested possible injection if PT not helping-no scheduled out Treatment Goals Patient/Caregiver Goals Have less pain, get back to 16 block walks, be able to pick things up off the floor, be able do housekeeping PT-OP-C Subjective Start: 08/09/22 18:13 Freq: Status: Active Protocol: Document 08/22/22 13:01 [facility] (Rec: 08/22/22 13:48 [id number]-PT Subjective Patient Comments Patient Comments Pt reports back is sore. Did do exercises 4 times since last time. notes no clot noted in ER PT-OP-D Balance Start: 08/09/22 18:13 Freq: Status: Active Protocol: Document 08/14/22 13:49 [facility] (Rec: 08/14/22 15:36 [id number] Balance Tests Single Limb Standing Single Limb- Right 7 sec w/lat lean Single Limb- Left 6 sec w/lat lean PT-OP-F Manual Assessment Start: 08/09/22 18:13 Freq: Status: Active Protocol: Document 08/14/22 13:49 [facility] (Rec: 08/14/22 15:36 [id number] Manual Assessments Soft Tissue Assessment Soft Tissue Mobility Assessment tightness B glutes, R>L QL, B paraspinals PT-OP-G Mobility & Gait Start: 08/09/22 18:13 Freq: Status: Active Protocol: Document 08/14/22 13:49 [facility] (Rec: 08/14/22 15:36 [id number] OP Gait Assessment Comments Gait Comments Dec push off , dec RLE stance time, REaches fwd w/RLE , tries to keep pelvis rigid PT-OP-J Posture/Palpation/Skin Start: 08/09/22 18:13 Freq: Status: Active Protocol: Document 08/14/22 13:49 [facility] (Rec: 08/14/22 15:36 [id number] Posture Evaluation [facility] Postural Classification System [facility] Postural Classifications Posterior/Anterior Vertebral Compression Test 0 Lumbar Protective Mechanism Left AP 0 Lumbar Protective Mechanism Right AP 0 Lumbar Protective Mechanism Left PA 1 Lumbar Protective Mechanism Right PA 1 Comments Posture Comments L pelvic shear, L torso rotation, R iliac crest higher than L, equal greater troch height, R LE ER PT-OP-K Range of Motion Start: 08/09/22 18:13 Freq: Status: Active Protocol: Document 08/14/22 13:49 [facility] (Rec: 08/14/22 15:36 [facility] [id number]) Lumbar Spine Range of Motion Lumbar Spine Active Percentage Flexion 5 Extension 40 Rotation Left 40 Rotation Right 10 Lateral Flexion Left 40 Lateral Flexion Right 20 Comments ipsi pain w/SB, pain w/flex & ext, more HS use w/flex fwd, limited spine motion; pain in R side w/rot B PT-OP-L Special Tests Start: 08/09/22 18:13 Freq: Status: Active Protocol: Document 08/14/22 13:49 [facility] (Rec: 08/14/22 15:36 [facility] [id number]) Special Tests Lumbar Spine Special Tests Straight Leg Raise Test Results neg mild HS tightness Slump Test Results neg B PT-OP-M Strength Start: 08/09/22 18:13 Freq: Status: Active Protocol: Document 08/14/22 13:49 [facility] (Rec: 08/14/22 15:36 [id number] Hip Strength Hip Manual Muscle Testing Right Flexion (L2) 3+ Fair+ Extension (S1) 3 Fair Abduction 4 Good External Rotation 3+ Fair+ Internal Rotation 4- Good- Left Flexion (L2) 4- Good- Extension (S1) 4- Good- Abduction 4 Good External Rotation 3+ Fair+ Internal Rotation 4+ Good+ Knee Strength Knee Manual Muscle Testing Right Flexion (S2) 5 Normal Extension (L3) 4 Good Left Flexion (S2) 5 Normal Extension (L3) 4 Good Ankle/Foot Strength Ankle and Foot Manual Muscle Testing Right Dorsiflexion (L4) 5 Normal Plantarflexion (S1) 4 Good Comments 13 heel raises Left Dorsiflexion (L4) 5 Normal Plantarflexion (S1) 4 Good Comments 14 heel raises PT-OP-Q Treatments Start: 08/09/22 18:13 Freq: Status: Active Protocol: Document 08/22/22 13:01 [facility] (Rec: 08/22/22 13:48 [facility] [id number]) Therapeutic Exercises Supine Exercises LTR Side bilateral Reps/Minutes 10 TAbd Supine Exercise Name 1. BKFO 2. october 3. heel slides Side bilateral Reps/Minutes 15 ea pelvic tilts Supine Exercise Name cues for no shoulder fwd roll Reps/Minutes 15 Manual Therapy Treatment Soft Tissue Mobilization lumbar Body Location B ES & QL Mobilization Type Rolling,Strumming Intensity/Depth Moderate Body Position Sidelying Joint Mobilizations hip Joint ER & IR FM in hooklying PT-OP-R Modalities Start: 08/09/22 18:13 Freq: Status: Active Protocol: Document 08/22/22 13:01 [facility] (Rec: 08/22/22 13:48 [facility] [id number]) Hot Pack/Cold Pack Treatment Cold Pack Location LB Patient Position Hooklying Treatment Duration (minutes) 10 PT-OP-T Assessment and Plan Start: 08/09/22 18:13 Freq: Status: Active Protocol: Document 08/22/22 13:01 [facility] (Rec: 08/22/22 13:48 [id number] Physical Therapy Assessment Goals posture Food And Beverage Analyst Goal (LTG) Pt will show improved postural alignment in order to dec pain w/sitting/standing for long periods by scoring at least 3/5 on VCT. LTG Duration 11/05 strength Short Term Goal (STG) pt will be indep w/HEP STG Duration 09/24 Food And Beverage Analyst Goal (LTG) Pt will show improved strength w/MMT of at least 4+/5 in all direction and LPM at least 3/ 5 in all planes to show improved stability to allow pt to do typical daily activities. LTG Duration 11/05 housework Residential Goal (LTG) Pt will be able to return to all typical housework w/o inc pain. LTG Duration 11/06/22 activities Short Term Goal (STG) Pt will be able to returnt o full 16 block walks w/o inc pain greater than 2/10 STG Duration 09/24/22 Residential Goal (LTG) Pt will be able to squat to flower buncher or picker objects from floor w/o inc pain. LTG Duration 11/06/22 LYUDMILA Impairment 12/50 Short Term Goal (STG) Pt will improve LYUDMILA score to no greater than 8/50 to show impoved functional ability. STG Duration 2 Residential Goal (LTG) Pt will improve LYUDMILA score to no greater than 3/50 to show impoved functional ability. LTG Duration 11/06 Assessment Summary Assessment Pt did well with exercises but did require cues thoughout. Does have significant L hip restriction but fluttering not palpable. Physical Therapy Plan Frequency and Duration Duration of treatment (weeks) 12 Plan of Care Start Date 08/14/22 Plan of Care End Date 11/06/22 Next Visit Focus/Plan Next Note Type Treatment Note Next Visit Plan review supine core exercises for HEP, STM to QL & lumbar paraspinals
--- NOTE | 2022-08-29 13:18 | PT.OTN ---
Current Diagnoses Spondylosis without myelopathy or radiculopathy, site unspecified (08/29/22) Spinal stenosis, lumbar region without neurogenic claudication (08/29/22) Low back pain, unspecified (08/29/22) Difficulty in walking, not elsewhere classified (08/29/22) Abnormal posture (08/29/22) Weakness (08/29/22) Physical Therapy Treatment Note PT-OP-A Visit Information Start: 08/09/22 18:13 Freq: Status: Active Protocol: Document 08/29/22 09:52 [facility] (Rec: 08/29/22 13:18 [facility] [id number]) Out-Patient Physical Therapy Visit Information Visit Information Visit Type Treatment Note Visit Note 12/03 Visit Start Time 09:52 Visit Stop Time 10:40 Total Visit Minutes 48 Visit Number 4 Number of CUPOLA OPERATOR Visits 0 PT-OP-B Current Condition Start: 08/09/22 18:13 Freq: Status: Active Protocol: Document 08/14/22 13:49 [facility] (Rec: 08/14/22 15:36 [facility] [id number]) Current Condition History of Current Condition Onset Date 4 months Current Complaints LBP History of Current Condition Pt reports back pain that she tried PT [facility] for but it was feeling worse when she went. She has had back pain for about 4 months now. She saw a neurologist and was put on gabepentin and she takes it 2x /day and mm relaxant at night, which she is considering taking it during the day. She has beeen on meds since end of May and that has helped her sleep more. She had a TIA on Jun 01. it was after her 5th booster. She had face numbness , difficulty getting up and head SB to L. She has been having L groin fluttering/ pulsating that has gotten really annoying in the last week. It does it in all positions but sitting may be worst. It has periods where it starts. She gets shooting pain down legs from ant thighs into ant shins. It isn't constant but it is frequent. She walks 10-12 blocks daily but that is less than what she typically does around 16 blocks or so. In the last week , back pain has inc more. She went to a gathering last night and couldn't stay d/t discomfort in the chairs. Pt has hx of B TKA but they are pretty good. She was riding a bike this spring/summer and that helped a lot. Still slow w/down stairs. It is easier on her back when she keeps her RLE out in front of her and less painful on back. When 1st gets up, she limps a little. Prior Treatments and Tests MRI -see scanned into chart; PT at [facility] Future Testing and Treatments Planned neurosurgeon suggested possible injection if PT not helping-no scheduled out Treatment Goals Patient/Caregiver Goals Have less pain, get back to 16 block walks, be able to pick things up off the floor, be able do housekeeping PT-OP-C Subjective Start: 08/09/22 18:13 Freq: Status: Active Protocol: Document 08/29/22 09:52 [facility] (Rec: 08/29/22 13:18 [facility] [id number]) OP-PT Subjective Patient Comments Patient Comments Pt reports the last couple days have been pretty good but before that was not so good. She hasn't had the hip discomofrt for the past 4-5 days PT-OP-D Balance Start: 08/09/22 18:13 Freq: Status: Active Protocol: Document 08/14/22 13:49 [facility] (Rec: 08/14/22 15:36 [facility] [id number]) Balance Tests Single Limb Standing Single Limb- Right 7 sec w/lat lean Single Limb- Left 6 sec w/lat lean PT-OP-F Manual Assessment Start: 08/09/22 18:13 Freq: Status: Active Protocol: Document 08/14/22 13:49 [facility] (Rec: 08/14/22 15:36 [facility] [id number]) Manual Assessments Soft Tissue Assessment Soft Tissue Mobility Assessment tightness B glutes, R>L QL, B paraspinals PT-OP-G Mobility & Gait Start: 08/09/22 18:13 Freq: Status: Active Protocol: Document 08/14/22 13:49 [facility] (Rec: 08/14/22 15:36 [facility] [id number]) OP Gait Assessment Comments Gait Comments Dec push off , dec RLE stance time, REaches fwd w/RLE , tries to keep pelvis rigid PT-OP-J Posture/Palpation/Skin Start: 08/09/22 18:13 Freq: Status: Active Protocol: Document 08/14/22 13:49 [facility] (Rec: 08/14/22 15:36 [facility] [id number]) Posture Evaluation [facility] Postural Classification System [place] Postural Classifications Posterior/Anterior Vertebral Compression Test 0 Lumbar Protective Mechanism Left AP 0 Lumbar Protective Mechanism Right AP 0 Lumbar Protective Mechanism Left PA 1 Lumbar Protective Mechanism Right PA 1 Comments Posture Comments L pelvic shear, L torso rotation, R iliac crest higher than L, equal greater troch height, R LE ER PT-OP-K Range of Motion Start: 08/09/22 18:13 Freq: Status: Active Protocol: Document 08/14/22 13:49 [facility] (Rec: 08/14/22 15:36 [facility] [id number]) Lumbar Spine Range of Motion Lumbar Spine Active Percentage Flexion 5 Extension 40 Rotation Left 40 Rotation Right 10 Lateral Flexion Left 40 Lateral Flexion Right 20 Comments ipsi pain w/SB, pain w/flex & ext, more HS use w/flex fwd, limited spine motion; pain in R side w/rot B PT-OP-L Special Tests Start: 08/09/22 18:13 Freq: Status: Active Protocol: Document 08/14/22 13:49 [facility] (Rec: 08/14/22 15:36 [facility] [id number]) Special Tests Lumbar Spine Special Tests Straight Leg Raise Test Results neg mild HS tightness Slump Test Results neg B PT-OP-M Strength Start: 08/09/22 18:13 Freq: Status: Active Protocol: Document 08/14/22 13:49 [facility] (Rec: 08/14/22 15:36 [facility] [id number]) Hip Strength Hip Manual Muscle Testing Right Flexion (L2) 3+ Fair+ Extension (S1) 3 Fair Abduction 4 Good External Rotation 3+ Fair+ Internal Rotation 4- Good- Left Flexion (L2) 4- Good- Extension (S1) 4- Good- Abduction 4 Good External Rotation 3+ Fair+ Internal Rotation 4+ Good+ Knee Strength Knee Manual Muscle Testing Right Flexion (S2) 5 Normal Extension (L3) 4 Good Left Flexion (S2) 5 Normal Extension (L3) 4 Good Ankle/Foot Strength Ankle and Foot Manual Muscle Testing Right Dorsiflexion (L4) 5 Normal Plantarflexion (S1) 4 Good Comments 13 heel raises Left Dorsiflexion (L4) 5 Normal Plantarflexion (S1) 4 Good Comments 14 heel raises PT-OP-Q Treatments Start: 08/09/22 18:13 Freq: Status: Active Protocol: Document 08/29/22 09:52 [facility] (Rec: 08/29/22 13:18 [facility] [id number]) Therapeutic Exercises Supine Exercises LTR Side bilateral Reps/Minutes 8 TAbd Supine Exercise Name 1. BKFO 2. october 3. heel slides Side bilateral Reps/Minutes 8 ea pelvic tilts Supine Exercise Name min cues Reps/Minutes 5 Sidelying Exercises abd Side bilateral Reps/Minutes 12 Comments cues for alignment clamshell Side bilateral Equipment Used L2 Reps/Minutes 12 Manual Therapy Treatment Soft Tissue Mobilization abdomen Body Location R obliques Mobilization Type Rolling Comments w/LTR lumbar Body Location B ES & QL Mobilization Type Rolling,Strumming Intensity/Depth Moderate Body Position Sidelying PT-OP-R Modalities Start: 08/09/22 18:13 Freq: Status: Active Protocol: Document 08/29/22 09:52 [facility] (Rec: 08/29/22 13:18 [facility] [id number]) Hot Pack/Cold Pack Treatment Hot Pack Location lumbar Patient Position Hooklying Treatment Duration (minutes) 10 PT-OP-T Assessment and Plan Start: 08/09/22 18:13 Freq: Status: Active Protocol: Document 08/29/22 09:52 [facility] (Rec: 08/29/22 13:18 [facility] [id number]) Physical Therapy Assessment Goals posture Half-Way Goal (LTG) Pt will show improved postural alignment in order to dec pain w/sitting/standing for long periods by scoring at least 3/5 on VCT. LTG Duration 11/05 strength Short Term Goal (STG) pt will be indep w/HEP STG Duration 09/24 Registered Nurse Hh Case Manager Goal (LTG) Pt will show improved strength w/MMT of at least 4+/5 in all direction and LPM at least 3/ 5 in all planes to show improved stability to allow pt to do typical daily activities. LTG Duration 11/05 housework Half-Way Goal (LTG) Pt will be able to return to all typical housework w/o inc pain. LTG Duration 11/06/22 activities Short Term Goal (STG) Pt will be able to returnt o full 16 block walks w/o inc pain greater than 2/10 STG Duration 09/24/22 Registered Nurse Hh Case Manager Goal (LTG) Pt will be able to squat to picking crew supervisor objects from floor w/o inc pain. LTG Duration 11/06/22 LYUDMILA Impairment 12/50 Short Term Goal (STG) Pt will improve LYUDMILA score to no greater than 8/50 to show impoved functional ability. STG Duration 09/26 Half-Way Goal (LTG) Pt will improve LYUDMILA score to no greater than 3/50 to show impoved functional ability. LTG Duration 11/06 Assessment Summary Assessment Pt did well with session today and required less cues re: core exercises. Initiallyn eeded some cueing but was able to do well w/o cues after initial exercise. LTR still required cues. Physical Therapy Plan Frequency and Duration Duration of treatment (weeks) 12 Plan of Care Start Date 08/14/22 Plan of Care End Date 11/06/22 Next Visit Focus/Plan Next Note Type Treatment Note Next Visit Plan cont to work on hip stability strengthening; manual to dec pain
--- NOTE | 2022-09-05 10:33 | PT.OTN ---
Current Diagnoses Spondylosis without myelopathy or radiculopathy, site unspecified (09/05/22) Spinal stenosis, lumbar region without neurogenic claudication (09/05/22) Low back pain, unspecified (09/05/22) Difficulty in walking, not elsewhere classified (09/05/22) Abnormal posture (09/05/22) Weakness (09/05/22) Physical Therapy Treatment Note PT-OP-A Visit Information Start: 08/09/22 18:13 Freq: Status: Active Protocol: Document 09/05/22 09:53 [facility] (Rec: 09/05/22 10:33 [facility] [id number]) Out-Patient Physical Therapy Visit Information Visit Information Visit Type Treatment Note Visit Note 01/02 Visit Start Time 09:53 Visit Stop Time 10:41 Total Visit Minutes 48 Visit Number 5 Number of SOAKING PITS SUPERVISOR Visits 0 PT-OP-B Current Condition Start: 08/09/22 18:13 Freq: Status: Active Protocol: Document 08/14/22 13:49 [facility] (Rec: 08/14/22 15:36 [facility] [id number]) Current Condition History of Current Condition Onset Date 4 months Current Complaints LBP History of Current Condition Pt reports back pain that she tried PT [facility] for but it was feeling worse when she went. She has had back pain for about 4 months now. She saw a neurologist and was put on gabepentin and she takes it 2x /day and mm relaxant at night, which she is considering taking it during the day. She has beeen on meds since end of May and that has helped her sleep more. She had a TIA on Jun 01. it was after her 5th booster. She had face numbness , difficulty getting up and head SB to L. She has been having L groin fluttering/ pulsating that has gotten really annoying in the last week. It does it in all positions but sitting may be worst. It has periods where it starts. She gets shooting pain down legs from ant thighs into ant shins. It isn't constant but it is frequent. She walks 10-12 blocks daily but that is less than what she typically does around 16 blocks or so. In the last week , back pain has inc more. She went to a gathering last night and couldn't stay d/t discomfort in the chairs. Pt has hx of B TKA but they are pretty good. She was riding a bike this spring/summer and that helped a lot. Still slow w/down stairs. It is easier on her back when she keeps her RLE out in front of her and less painful on back. When 1st gets up, she limps a little. Prior Treatments and Tests MRI -see scanned into chart; PT at [facility] Future Testing and Treatments Planned neurosurgeon suggested possible injection if PT not helping-no scheduled out Treatment Goals Patient/Caregiver Goals Have less pain, get back to 16 block walks, be able to pick things up off the floor, be able do housekeeping PT-OP-C Subjective Start: 08/09/22 18:13 Freq: Status: Active Protocol: Document 09/05/22 09:53 [facility] (Rec: 09/05/22 10:33 [facility] [id number]) OP-PT Subjective Patient Comments Patient Comments Reports Saturday pain started to be worse after drive to [employer] and sitting w/friends fro 2 hours whent here then back. Tried a longer walk w/ hill yesterday and that really inc her pain PT-OP-D Balance Start: 08/09/22 18:13 Freq: Status: Active Protocol: Document 08/14/22 13:49 [facility] (Rec: 08/14/22 15:36 [facility] [id number]) Balance Tests Single Limb Standing Single Limb- Right 7 sec w/lat lean Single Limb- Left 6 sec w/lat lean PT-OP-F Manual Assessment Start: 08/09/22 18:13 Freq: Status: Active Protocol: Document 08/14/22 13:49 [facility] (Rec: 08/14/22 15:36 [facility] [id number]) Manual Assessments Soft Tissue Assessment Soft Tissue Mobility Assessment tightness B glutes, R>L QL, B paraspinals PT-OP-G Mobility & Gait Start: 08/09/22 18:13 Freq: Status: Active Protocol: Document 08/14/22 13:49 [facility] (Rec: 08/14/22 15:36 [facility] [id number]) OP Gait Assessment Comments Gait Comments Dec push off , dec RLE stance time, REaches fwd w/RLE , tries to keep pelvis rigid PT-OP-J Posture/Palpation/Skin Start: 08/09/22 18:13 Freq: Status: Active Protocol: Document 08/14/22 13:49 [facility] (Rec: 08/14/22 15:36 [facility] [id number]) Posture Evaluation [facility] Postural Classification System [place] Postural Classifications Posterior/Anterior Vertebral Compression Test 0 Lumbar Protective Mechanism Left AP 0 Lumbar Protective Mechanism Right AP 0 Lumbar Protective Mechanism Left PA 1 Lumbar Protective Mechanism Right PA 1 Comments Posture Comments L pelvic shear, L torso rotation, R iliac crest higher than L, equal greater troch height, R LE ER PT-OP-K Range of Motion Start: 08/09/22 18:13 Freq: Status: Active Protocol: Document 08/14/22 13:49 [facility] (Rec: 08/14/22 15:36 [facility] [id number]) Lumbar Spine Range of Motion Lumbar Spine Active Percentage Flexion 5 Extension 40 Rotation Left 40 Rotation Right 10 Lateral Flexion Left 40 Lateral Flexion Right 20 Comments ipsi pain w/SB, pain w/flex & ext, more HS use w/flex fwd, limited spine motion; pain in R side w/rot B PT-OP-L Special Tests Start: 08/09/22 18:13 Freq: Status: Active Protocol: Document 08/14/22 13:49 [facility] (Rec: 08/14/22 15:36 [facility] [id number]) Special Tests Lumbar Spine Special Tests Straight Leg Raise Test Results neg mild HS tightness Slump Test Results neg B PT-OP-M Strength Start: 08/09/22 18:13 Freq: Status: Active Protocol: Document 08/14/22 13:49 [facility] (Rec: 08/14/22 15:36 [facility] [id number]) Hip Strength Hip Manual Muscle Testing Right Flexion (L2) 3+ Fair+ Extension (S1) 3 Fair Abduction 4 Good External Rotation 3+ Fair+ Internal Rotation 4- Good- Left Flexion (L2) 4- Good- Extension (S1) 4- Good- Abduction 4 Good External Rotation 3+ Fair+ Internal Rotation 4+ Good+ Knee Strength Knee Manual Muscle Testing Right Flexion (S2) 5 Normal Extension (L3) 4 Good Left Flexion (S2) 5 Normal Extension (L3) 4 Good Ankle/Foot Strength Ankle and Foot Manual Muscle Testing Right Dorsiflexion (L4) 5 Normal Plantarflexion (S1) 4 Good Comments 13 heel raises Left Dorsiflexion (L4) 5 Normal Plantarflexion (S1) 4 Good Comments 14 heel raises PT-OP-Q Treatments Start: 12/15/22 18:13 Freq: Status: Active Protocol: Document 09/05/22 09:53 [facility] (Rec: 09/05/22 10:33 [facility] [id number]) Therapeutic Exercises Supine Exercises stretches Supine Exercise Name 1. figure 4 2. piriformis 3. SKTC 4. DKTC Side bilateral Reps/Minutes 30 sec ea Manual Therapy Treatment Soft Tissue Mobilization glutes Body Location B Mobilization Type Sustained Pressure Intensity/Depth Moderate Body Position Prone Comments w/hip rotation lumbar Body Location B ES & QL Mobilization Type Rolling,Strumming Intensity/Depth Moderate Body Position Prone Joint Mobilizations innominate Joint L caudal FM sacrum Joint R caudal FM & UPA R FM hip Joint on axis ER FM B PT-OP-R Modalities Start: 08/09/22 18:13 Freq: Status: Active Protocol: Document 09/05/22 09:53 [facility] (Rec: 09/05/22 10:33 [facility] [id number]) Hot Pack/Cold Pack Treatment Cold Pack Location LB Patient Position Hooklying Treatment Duration (minutes) 10 PT-OP-T Assessment and Plan Start: 08/09/22 18:13 Freq: Status: Active Protocol: Document 09/05/22 09:53 [facility] (Rec: 09/05/22 10:33 [facility] [id number]) Physical Therapy Assessment Goals posture Public Health Outreach Worker Goal (LTG) Pt will show improved postural alignment in order to dec pain w/sitting/standing for long periods by scoring at least 3/5 on VCT. LTG Duration 11/05 strength Short Term Goal (STG) pt will be indep w/HEP STG Duration 09/24 Alf Goal (LTG) Pt will show improved strength w/MMT of at least 4+/5 in all direction and LPM at least 3/ 5 in all planes to show improved stability to allow pt to do typical daily activities. LTG Duration 11/05 housework Alf Goal (LTG) Pt will be able to return to all typical housework w/o inc pain. LTG Duration 11/06/22 activities Short Term Goal (STG) Pt will be able to returnt o full 16 block walks w/o inc pain greater than 2/10 STG Duration 09/24/22 Alf Goal (LTG) Pt will be able to squat to warehouse order picker objects from floor w/o inc pain. LTG Duration 11/06/22 LYUDMILA Impairment 12/50 Short Term Goal (STG) Pt will improve LYUDMILA score to no greater than 8/50 to show impoved functional ability. STG Duration 09/26 Alf Goal (LTG) Pt will improve LYUDMILA score to no greater than 3/50 to show impoved functional ability. LTG Duration 11/06 Assessment Summary Assessment Pt had improved hip rotations B with manual treatment. Given exercies to stretch to help w /pain in future. Physical Therapy Plan Frequency and Duration Duration of treatment (weeks) 12 Plan of Care Start Date 08/14/22 Plan of Care End Date 11/06/22 Next Visit Focus/Plan Next Note Type Treatment Note Next Visit Plan cont to work on hip stability strengthening; manual to dec pain
--- NOTE | 2022-09-12 11:20 | PT.OTN ---
Current Diagnoses Spondylosis without myelopathy or radiculopathy, site unspecified (09/12/22) Spinal stenosis, lumbar region without neurogenic claudication (09/12/22) Low back pain, unspecified (09/12/22) Difficulty in walking, not elsewhere classified (09/12/22) Abnormal posture (09/12/22) Weakness (09/12/22) Physical Therapy Treatment Note PT-OP-A Visit Information Start: 08/09/22 18:13 Freq: Status: Active Protocol: Document 09/12/22 09:54 [facility] (Rec: 09/12/22 11:20 [facility] [id number]) Out-Patient Physical Therapy Visit Information Visit Information Visit Type Treatment Note Visit Note 02/02 Visit Start Time 09:51 Visit Stop Time 10:40 Total Visit Minutes 49 Visit Number 6 Number of RETAIL PROPERTY MANAGER Visits 0 PT-OP-B Current Condition Start: 08/09/22 18:13 Freq: Status: Active Protocol: Document 08/14/22 13:49 [facility] (Rec: 08/14/22 15:36 [facility] [id number]) Current Condition History of Current Condition Onset Date 4 months Current Complaints LBP History of Current Condition Pt reports back pain that she tried PT [facility] for but it was feeling worse when she went. She has had back pain for about 4 months now. She saw a neurologist and was put on gabepentin and she takes it 2x /day and mm relaxant at night, which she is considering taking it during the day. She has beeen on meds since end of May and that has helped her sleep more. She had a TIA on Jun 01. it was after her 5th booster. She had face numbness , difficulty getting up and head SB to L. She has been having L groin fluttering/ pulsating that has gotten really annoying in the last week. It does it in all positions but sitting may be worst. It has periods where it starts. She gets shooting pain down legs from ant thighs into ant shins. It isn't constant but it is frequent. She walks 10-12 blocks daily but that is less than what she typically does around 16 blocks or so. In the last week , back pain has inc more. She went to a gathering last night and couldn't stay d/t discomfort in the chairs. Pt has hx of B TKA but they are pretty good. She was riding a bike this spring/summer and that helped a lot. Still slow w/down stairs. It is easier on her back when she keeps her RLE out in front of her and less painful on back. When 1st gets up, she limps a little. Prior Treatments and Tests MRI -see scanned into chart; PT at [facility] Future Testing and Treatments Planned neurosurgeon suggested possible injection if PT not helping-no scheduled out Treatment Goals Patient/Caregiver Goals Have less pain, get back to 16 block walks, be able to pick things up off the floor, be able do housekeeping PT-OP-C Subjective Start: 08/09/22 18:13 Freq: Status: Active Protocol: Document 09/12/22 09:54 [facility] (Rec: 09/12/22 11:20 [facility] [id number]) OP-PT Subjective Patient Comments Patient Comments Pt repots doing better after last session. Notes still some spasms bu tless Patient Reported Progress Improving PT-OP-D Balance Start: 08/09/22 18:13 Freq: Status: Active Protocol: Document 08/14/22 13:49 [facility] (Rec: 08/14/22 15:36 [facility] [id number]) Balance Tests Single Limb Standing Single Limb- Right 7 sec w/lat lean Single Limb- Left 6 sec w/lat lean PT-OP-F Manual Assessment Start: 08/09/22 18:13 Freq: Status: Active Protocol: Document 08/14/22 13:49 [facility] (Rec: 08/14/22 15:36 [facility] [id number]) Manual Assessments Soft Tissue Assessment Soft Tissue Mobility Assessment tightness B glutes, R>L QL, B paraspinals PT-OP-G Mobility & Gait Start: 08/09/22 18:13 Freq: Status: Active Protocol: Document 08/14/22 13:49 [facility] (Rec: 08/14/22 15:36 [facility] [id number]) OP Gait Assessment Comments Gait Comments Dec push off , dec RLE stance time, REaches fwd w/RLE , tries to keep pelvis rigid PT-OP-J Posture/Palpation/Skin Start: 08/09/22 18:13 Freq: Status: Active Protocol: Document 08/14/22 13:49 [facility] (Rec: 08/14/22 15:36 [id number] Posture Evaluation [facility] Postural Classification System [facility] Postural Classifications Posterior/Anterior Vertebral Compression Test 0 Lumbar Protective Mechanism Left AP 0 Lumbar Protective Mechanism Right AP 0 Lumbar Protective Mechanism Left PA 1 Lumbar Protective Mechanism Right PA 1 Comments Posture Comments L pelvic shear, L torso rotation, R iliac crest higher than L, equal greater troch height, R LE ER PT-OP-K Range of Motion Start: 08/09/22 18:13 Freq: Status: Active Protocol: Document 08/14/22 13:49 [facility] (Rec: 08/14/22 15:36 [id number] Lumbar Spine Range of Motion Lumbar Spine Active Percentage Flexion 5 Extension 40 Rotation Left 40 Rotation Right 10 Lateral Flexion Left 40 Lateral Flexion Right 20 Comments ipsi pain w/SB, pain w/flex & ext, more HS use w/flex fwd, limited spine motion; pain in R side w/rot B PT-OP-L Special Tests Start: 08/09/22 18:13 Freq: Status: Active Protocol: Document 08/14/22 13:49 [facility] (Rec: 08/14/22 15:36 [place] [id number]) Special Tests Lumbar Spine Special Tests Straight Leg Raise Test Results neg mild HS tightness Slump Test Results neg B PT-OP-M Strength Start: 08/09/22 18:13 Freq: Status: Active Protocol: Document 08/14/22 13:49 [facility] (Rec: 08/14/22 15:36 [place] [id number]) Hip Strength Hip Manual Muscle Testing Right Flexion (L2) 3+ Fair+ Extension (S1) 3 Fair Abduction 4 Good External Rotation 3+ Fair+ Internal Rotation 4- Good- Left Flexion (L2) 4- Good- Extension (S1) 4- Good- Abduction 4 Good External Rotation 3+ Fair+ Internal Rotation 4+ Good+ Knee Strength Knee Manual Muscle Testing Right Flexion (S2) 5 Normal Extension (L3) 4 Good Left Flexion (S2) 5 Normal Extension (L3) 4 Good Ankle/Foot Strength Ankle and Foot Manual Muscle Testing Right Dorsiflexion (L4) 5 Normal Plantarflexion (S1) 4 Good Comments 13 heel raises Left Dorsiflexion (L4) 5 Normal Plantarflexion (S1) 4 Good Comments 14 heel raises PT-OP-Q Treatments Start: 08/09/22 18:13 Freq: Status: Active Protocol: Document 09/12/22 09:54 [facility] (Rec: 09/12/22 11:20 [facility] [id number]) Therapeutic Exercises Supine Exercises stretches Supine Exercise Name 1. figure 4 2. piriformis 3. SKTC 4. DKTC Side bilateral Reps/Minutes 30 sec ea Sidelying Exercises abd Side bilateral Reps/Minutes 15 Comments cues for alignment Manual Therapy Treatment Soft Tissue Mobilization hip flexor Body Location L Mobilization Type Sustained Pressure Intensity/Depth Moderate thigh Body Location L add & ITB & TFL Mobilization Type Rolling,Strumming Intensity/Depth Moderate Comments w/IR/ER lumbar Body Location B ES & QL Mobilization Type Rolling,Strumming Intensity/Depth Moderate Body Position Prone Joint Mobilizations hip Joint hooklying ER & IR FM PT-OP-R Modalities Start: 08/09/22 18:13 Freq: Status: Active Protocol: Document 09/12/22 09:54 [facility] (Rec: 09/12/22 11:20 [facility] [id number]) Hot Pack/Cold Pack Treatment Cold Pack Location LB Patient Position Hooklying Treatment Duration (minutes) 10 PT-OP-T Assessment and Plan Start: 08/09/22 18:13 Freq: Status: Active Protocol: Document 09/12/22 09:54 [facility] (Rec: 09/12/22 11:20 [facility] [id number]) Physical Therapy Assessment Goals posture County Records Management Officer Goal (LTG) Pt will show improved postural alignment in order to dec pain w/sitting/standing for long periods by scoring at least 3/5 on VCT. LTG Duration 11/05 strength Short Term Goal (STG) pt will be indep w/HEP STG Duration 09/24 Long-Term Goal (LTG) Pt will show improved strength w/MMT of at least 4+/5 in all direction and LPM at least 3/ 5 in all planes to show improved stability to allow pt to do typical daily activities. LTG Duration 11/05 housework Long-Term Goal (LTG) Pt will be able to return to all typical housework w/o inc pain. LTG Duration 11/06/22 activities Short Term Goal (STG) Pt will be able to returnt o full 16 block walks w/o inc pain greater than 2/10 STG Duration 09/24/22 Long-Term Goal (LTG) Pt will be able to squat to picking tech objects from floor w/o inc pain. LTG Duration 11/06/22 LYUDMILA Impairment 12/50 Short Term Goal (STG) Pt will improve LYUDMILA score to no greater than 8/50 to show impoved functional ability. STG Duration 09/26 County Records Management Officer Goal (LTG) Pt will improve LYUDMILA score to no greater than 3/50 to show impoved functional ability. LTG Duration 11/06 Assessment Summary Assessment Pt did well with stretcehs and only required min cueing Physical Therapy Plan Frequency and Duration Duration of treatment (weeks) 12 Plan of Care Start Date 08/14/22 Plan of Care End Date 11/06/22 Next Visit Focus/Plan Next Note Type Treatment Note Next Visit Plan cont to work on hip stability strengthening; manual to dec pain
--- NOTE | 2022-09-24 10:47 | PT.OTN ---
Current Diagnoses Spondylosis without myelopathy or radiculopathy, site unspecified (09/24/22) Spinal stenosis, lumbar region without neurogenic claudication (09/24/22) Low back pain, unspecified (09/24/22) Difficulty in walking, not elsewhere classified (09/24/22) Abnormal posture (09/24/22) Weakness (09/24/22) Physical Therapy Treatment Note PT-OP-A Visit Information Start: 08/09/22 18:13 Freq: Status: Active Protocol: Document 09/24/22 09:46 SAK (Rec: 09/24/22 10:29 [facility]AK [id number]) Out-Patient Physical Therapy Visit Information Visit Information Visit Type Treatment Note Visit Note 02/02 Visit Start Time 09:46 Visit Stop Time 10:40 Total Visit Minutes 49 Visit Number 7 Number of WINDOWS SOFTWARE DEVELOPER Visits 0 PT-OP-B Current Condition Start: 08/09/22 18:13 Freq: Status: Active Protocol: Document 08/14/22 13:49 [facility] (Rec: 08/14/22 15:36 [facility] [id number]) Current Condition History of Current Condition Onset Date 4 months Current Complaints LBP History of Current Condition Pt reports back pain that she tried PT at [facility] for but it was feeling worse when she went. She has had back pain for about 4 months now. She saw a neurologist and was put on gabepentin and she takes it 2x /day and mm relaxant at night, which she is considering taking it during the day. She has beeen on meds since end of May and that has helped her sleep more. She had a TIA on Jun 01. it was after her 5th booster. She had face numbness , difficulty getting up and head SB to L. She has been having L groin fluttering/ pulsating that has gotten really annoying in the last week. It does it in all positions but sitting may be worst. It has periods where it starts. She gets shooting pain down legs from ant thighs into ant shins. It isn't constant but it is frequent. She walks 10-12 blocks daily but that is less than what she typically does around 16 blocks or so. In the last week , back pain has inc more. She went to a gathering last night and couldn't stay d/t discomfort in the chairs. Pt has hx of B TKA but they are pretty good. She was riding a bike this spring/summer and that helped a lot. Still slow w/down stairs. It is easier on her back when she keeps her RLE out in front of her and less painful on back. When 1st gets up, she limps a little. Prior Treatments and Tests MRI -see scanned into chart; PT at [facility] Future Testing and Treatments Planned neurosurgeon suggested possible injection if PT not helping-no scheduled out Treatment Goals Patient/Caregiver Goals Have less pain, get back to 16 block walks, be able to pick things up off the floor, be able do housekeeping PT-OP-C Subjective Start: 08/09/22 18:13 Freq: Status: Active Protocol: Document 09/24/22 09:46 [facility]AK (Rec: 09/24/22 10:29 SAK [id number]) OP-PT Subjective Patient Comments Patient Comments Feeling better with PT, doing HEP. reports has most difficulty with exercise moving legs side to side (LTR) . Pain gets worse as the day goes on. Curently 10/05 PT-OP-D Balance Start: 08/09/22 18:13 Freq: Status: Active Protocol: Document 08/14/22 13:49 [facility] (Rec: 08/14/22 15:36 [facility] [id number]) Balance Tests Single Limb Standing Single Limb- Right 7 sec w/lat lean Single Limb- Left 6 sec w/lat lean PT-OP-F Manual Assessment Start: 08/09/22 18:13 Freq: Status: Active Protocol: Document 08/14/22 13:49 [facility] (Rec: 08/14/22 15:36 [facility] [id number]) Manual Assessments Soft Tissue Assessment Soft Tissue Mobility Assessment tightness B glutes, R>L QL, B paraspinals PT-OP-G Mobility & Gait Start: 08/09/22 18:13 Freq: Status: Active Protocol: Document 08/14/22 13:49 [facility] (Rec: 08/14/22 15:36 [facility] [id number]) OP Gait Assessment Comments Gait Comments Dec push off , dec RLE stance time, REaches fwd w/RLE , tries to keep pelvis rigid PT-OP-J Posture/Palpation/Skin Start: 08/09/22 18:13 Freq: Status: Active Protocol: Document 08/14/22 13:49 [facility] (Rec: 08/14/22 15:36 [id number] Postural Classification System Slade Postural Classifications Posterior/Anterior Vertebral Compression Test 0 Lumbar Protective Mechanism Left AP 0 Lumbar Protective Mechanism Right AP 0 Lumbar Protective Mechanism Left PA 1 Lumbar Protective Mechanism Right PA 1 Comments Posture Comments L pelvic shear, L torso rotation, R iliac crest higher than L, equal greater troch height, R LE ER PT-OP-K Range of Motion Start: 08/09/22 18:13 Freq: Status: Active Protocol: Document 08/14/22 13:49 [facility] (Rec: 08/14/22 15:36 [id number] Lumbar Spine Range of Motion Lumbar Spine Active Percentage Flexion 5 Extension 40 Rotation Left 40 Rotation Right 10 Lateral Flexion Left 40 Lateral Flexion Right 20 Comments ipsi pain w/SB, pain w/flex & ext, more HS use w/flex fwd, limited spine motion; pain in R side w/rot B PT-OP-L Special Tests Start: 08/09/22 18:13 Freq: Status: Active Protocol: Document 08/14/22 13:49 [facility] (Rec: 08/14/22 15:36 [id number] Special Tests Lumbar Spine Special Tests Straight Leg Raise Test Results neg mild HS tightness Slump Test Results neg B PT-OP-M Strength Start: 08/09/22 18:13 Freq: Status: Active Protocol: Document 08/14/22 13:49 [facility] (Rec: 08/14/22 15:36 [facility] [id number]) Hip Strength Hip Manual Muscle Testing Right Flexion (L2) 3+ Fair+ Extension (S1) 3 Fair Abduction 4 Good External Rotation 3+ Fair+ Internal Rotation 4- Good- Left Flexion (L2) 4- Good- Extension (S1) 4- Good- Abduction 4 Good External Rotation 3+ Fair+ Internal Rotation 4+ Good+ Knee Strength Knee Manual Muscle Testing Right Flexion (S2) 5 Normal Extension (L3) 4 Good Left Flexion (S2) 5 Normal Extension (L3) 4 Good Ankle/Foot Strength Ankle and Foot Manual Muscle Testing Right Dorsiflexion (L4) 5 Normal Plantarflexion (S1) 4 Good Comments 13 heel raises Left Dorsiflexion (L4) 5 Normal Plantarflexion (S1) 4 Good Comments 14 heel raises PT-OP-Q Treatments Start: 08/09/22 18:13 Freq: Status: Active Protocol: Document 09/24/22 09:46 [facility] (Rec: 09/24/22 10:29 [facility] [id number]) Therapeutic Exercises Supine Exercises bridge Supine Exercise Name initial step of gluteal tightening only today Reps/Minutes 10x Comments cues for PPT first stretches Supine Exercise Name 1. figure 4 2. piriformis 3. SKTC 4. DKTC Side bilateral Reps/Minutes 30 sec ea Comments cues for opp leg straight with SKTC LTR Side bilateral Reps/Minutes 8 Comments cues for core activation pelvic tilts Supine Exercise Name min cues Reps/Minutes 5 Sidelying Exercises abd Side bilateral Reps/Minutes 15 Comments cues for alignment, core activation Standing Exercises wall posture Reps/Minutes 5x Comments cues for relaxed knees, core, should, chin tuck Manual Therapy Treatment Soft Tissue Mobilization hip flexor Body Location L Mobilization Type Sustained Pressure Intensity/Depth Moderate thigh Body Location L add & ITB & TFL Mobilization Type Rolling,Strumming Intensity/Depth Moderate Comments w/IR/ER lumbar Body Location B ES & QL Mobilization Type Rolling,Strumming Intensity/Depth Moderate Body Position Prone PT-OP-R Modalities Start: 08/09/22 18:13 Freq: Status: Active Protocol: Document 09/24/22 09:46 [facility] (Rec: 09/24/22 10:29 [facility] [id number]) Hot Pack/Cold Pack Treatment Cold Pack Location LB Patient Position Hooklying Treatment Duration (minutes) 10 PT-OP-T Assessment and Plan Start: 08/09/22 18:13 Freq: Status: Active Protocol: Document 09/24/22 09:46 [facility] (Rec: 09/24/22 10:29 [facility] [id number]) Physical Therapy Assessment Goals posture [facility] Goal (LTG) Pt will show improved postural alignment in order to dec pain w/sitting/standing for long periods by scoring at least 3/5 on VCT. LTG Duration 11/05 strength Short Term Goal (STG) pt will be indep w/HEP STG Duration 09/24 Assignment Manager Goal (LTG) Pt will show improved strength w/MMT of at least 4+/5 in all direction and LPM at least 3/ 5 in all planes to show improved stability to allow pt to do typical daily activities. LTG Duration 11/05 housework [facility] Goal (LTG) Pt will be able to return to all typical housework w/o inc pain. LTG Duration 11/06/22 activities Short Term Goal (STG) Pt will be able to returnt o full 16 block walks w/o inc pain greater than 2/10 STG Duration 09/24/22 [facility] Goal (LTG) Pt will be able to squat to pepper picker objects from floor w/o inc pain. LTG Duration 11/06/22 LYUDMILA Impairment 12/50 Short Term Goal (STG) Pt will improve LYUDMILA score to no greater than 8/50 to show impoved functional ability. STG Duration 2 [facility] Goal (LTG) Pt will improve LYUDMILA score to no greater than 3/50 to show impoved functional ability. LTG Duration 11/06 Assessment Summary Assessment cues for segmental movement, core activation, postural correction. Demonstrated good understanding of use of wall for postural reference, importance of core activation and alignment. Physical Therapy Plan Frequency and Duration Duration of treatment (weeks) 12 Plan of Care Start Date 08/14/22 Plan of Care End Date 11/06/22 Next Visit Focus/Plan Next Note Type Treatment Note Next Visit Plan cont to work on hip stability strengthening; manual to dec pain
--- NOTE | 2022-09-24 15:02 | PT.OTN ---
Current Diagnoses Spondylosis without myelopathy or radiculopathy, site unspecified (09/24/22) Spinal stenosis, lumbar region without neurogenic claudication (09/24/22) Low back pain, unspecified (09/24/22) Difficulty in walking, not elsewhere classified (09/24/22) Abnormal posture (09/24/22) Weakness (09/24/22) Physical Therapy Treatment Note PT-OP-A Visit Information Start: 08/09/22 18:13 Freq: Status: Active Protocol: Document 09/24/22 09:46 [facility] (Rec: 09/24/22 10:29 SAK [id number]) Out-Patient Physical Therapy Visit Information Visit Information Visit Type Treatment Note Visit Note 03/04 Visit Start Time 09:46 Visit Stop Time 10:40 Total Visit Minutes 49 Visit Number 7 Number of CUFF KNITTER Visits 0 PT-OP-B Current Condition Start: 08/09/22 18:13 Freq: Status: Active Protocol: Document 08/14/22 13:49 [facility] (Rec: 08/14/22 15:36 [facility] [id number]) Current Condition History of Current Condition Onset Date 4 months Current Complaints LBP History of Current Condition Pt reports back pain that she tried PT at [facility] for but it was feeling worse when she went. She has had back pain for about 4 months now. She saw a neurologist and was put on gabepentin and she takes it 2x /day and mm relaxant at night, which she is considering taking it during the day. She has beeen on meds since end of May and that has helped her sleep more. She had a TIA on Jun 01. it was after her 5th booster. She had face numbness , difficulty getting up and head SB to L. She has been having L groin fluttering/ pulsating that has gotten really annoying in the last week. It does it in all positions but sitting may be worst. It has periods where it starts. She gets shooting pain down legs from ant thighs into ant shins. It isn't constant but it is frequent. She walks 10-12 blocks daily but that is less than what she typically does around 16 blocks or so. In the last week , back pain has inc more. She went to a gathering last night and couldn't stay d/t discomfort in the chairs. Pt has hx of B TKA but they are pretty good. She was riding a bike this spring/summer and that helped a lot. Still slow w/down stairs. It is easier on her back when she keeps her RLE out in front of her and less painful on back. When 1st gets up, she limps a little. Prior Treatments and Tests MRI -see scanned into chart; PT at [facility] Future Testing and Treatments Planned neurosurgeon suggested possible injection if PT not helping-no scheduled out Treatment Goals Patient/Caregiver Goals Have less pain, get back to 16 block walks, be able to pick things up off the floor, be able do housekeeping PT-OP-C Subjective Start: 08/09/22 18:13 Freq: Status: Active Protocol: Document 09/24/22 09:46 [facility] (Rec: 09/24/22 10:29 SAK [id number]) OP-PT Subjective Patient Comments Patient Comments Feeling better with PT, doing HEP. reports has most difficulty with exercise moving legs side to side (LTR) . Pain gets worse as the day goes on. Curently 10/05 PT-OP-D Balance Start: 08/09/22 18:13 Freq: Status: Active Protocol: Document 08/14/22 13:49 [facility] (Rec: 08/14/22 15:36 [facility] [id number]) Balance Tests Single Limb Standing Single Limb- Right 7 sec w/lat lean Single Limb- Left 6 sec w/lat lean PT-OP-F Manual Assessment Start: 08/09/22 18:13 Freq: Status: Active Protocol: Document 08/14/22 13:49 [facility] (Rec: 08/14/22 15:36 [facility] [id number]) Manual Assessments Soft Tissue Assessment Soft Tissue Mobility Assessment tightness B glutes, R>L QL, B paraspinals PT-OP-G Mobility & Gait Start: 08/09/22 18:13 Freq: Status: Active Protocol: Document 08/14/22 13:49 [facility] (Rec: 08/14/22 15:36 [facility] [id number]) OP Gait Assessment Comments Gait Comments Dec push off , dec RLE stance time, REaches fwd w/RLE , tries to keep pelvis rigid PT-OP-J Posture/Palpation/Skin Start: 08/09/22 18:13 Freq: Status: Active Protocol: Document 08/14/22 13:49 [facility] (Rec: 08/14/22 15:36 [id number] Posture Evaluation [facility] Postural Classification System Slade Postural Classifications Posterior/Anterior Vertebral Compression Test 0 Lumbar Protective Mechanism Left AP 0 Lumbar Protective Mechanism Right AP 0 Lumbar Protective Mechanism Left PA 1 Lumbar Protective Mechanism Right PA 1 Comments Posture Comments L pelvic shear, L torso rotation, R iliac crest higher than L, equal greater troch height, R LE ER PT-OP-K Range of Motion Start: 08/09/22 18:13 Freq: Status: Active Protocol: Document 08/14/22 13:49 [facility] (Rec: 08/14/22 15:36 [id number]) Lumbar Spine Range of Motion Lumbar Spine Active Percentage Flexion 5 Extension 40 Rotation Left 40 Rotation Right 10 Lateral Flexion Left 40 Lateral Flexion Right 20 Comments ipsi pain w/SB, pain w/flex & ext, more HS use w/flex fwd, limited spine motion; pain in R side w/rot B PT-OP-L Special Tests Start: 08/09/22 18:13 Freq: Status: Active Protocol: Document 08/14/22 13:49 [facility] (Rec: 08/14/22 15:36 [id number] Special Tests Lumbar Spine Special Tests Straight Leg Raise Test Results neg mild HS tightness Slump Test Results neg B PT-OP-M Strength Start: 08/09/22 18:13 Freq: Status: Active Protocol: Document 08/14/22 13:49 [facility] (Rec: 08/14/22 15:36 [facility] [id number]) Hip Strength Hip Manual Muscle Testing Right Flexion (L2) 3+ Fair+ Extension (S1) 3 Fair Abduction 4 Good External Rotation 3+ Fair+ Internal Rotation 4- Good- Left Flexion (L2) 4- Good- Extension (S1) 4- Good- Abduction 4 Good External Rotation 3+ Fair+ Internal Rotation 4+ Good+ Knee Strength Knee Manual Muscle Testing Right Flexion (S2) 5 Normal Extension (L3) 4 Good Left Flexion (S2) 5 Normal Extension (L3) 4 Good Ankle/Foot Strength Ankle and Foot Manual Muscle Testing Right Dorsiflexion (L4) 5 Normal Plantarflexion (S1) 4 Good Comments 13 heel raises Left Dorsiflexion (L4) 5 Normal Plantarflexion (S1) 4 Good Comments 14 heel raises PT-OP-Q Treatments Start: 08/09/22 18:13 Freq: Status: Active Protocol: Document 09/24/22 09:46 [facility] (Rec: 09/24/22 10:29 [facility] [id number]) Therapeutic Exercises Supine Exercises bridge Supine Exercise Name initial step of gluteal tightening only today Reps/Minutes 10x Comments cues for PPT first stretches Supine Exercise Name 1. figure 4 2. piriformis 3. SKTC 4. DKTC Side bilateral Reps/Minutes 30 sec ea Comments cues for opp leg straight with SKTC LTR Side bilateral Reps/Minutes 8 Comments cues for core activation pelvic tilts Supine Exercise Name min cues Reps/Minutes 5 Sidelying Exercises abd Side bilateral Reps/Minutes 15 Comments cues for alignment, core activation Standing Exercises wall posture Reps/Minutes 5x Comments cues for relaxed knees, core, should, chin tuck Manual Therapy Treatment Soft Tissue Mobilization hip flexor Body Location L Mobilization Type Sustained Pressure Intensity/Depth Moderate thigh Body Location L add & ITB & TFL Mobilization Type Rolling,Strumming Intensity/Depth Moderate Comments w/IR/ER lumbar Body Location B ES & QL Mobilization Type Rolling,Strumming Intensity/Depth Moderate Body Position Prone PT-OP-R Modalities Start: 08/09/22 18:13 Freq: Status: Active Protocol: Document 09/24/22 09:46 [facility] (Rec: 09/24/22 10:29 [facility] [id number]) Hot Pack/Cold Pack Treatment Cold Pack Location LB Patient Position Hooklying Treatment Duration (minutes) 10 PT-OP-T Assessment and Plan Start: 08/09/22 18:13 Freq: Status: Active Protocol: Document 09/24/22 09:46 [facility] (Rec: 09/24/22 10:29 [facility] [id number]) Physical Therapy Assessment Goals posture Long-Term Goal (LTG) Pt will show improved postural alignment in order to dec pain w/sitting/standing for long periods by scoring at least 3/5 on VCT. LTG Duration 11/05 strength Short Term Goal (STG) pt will be indep w/HEP STG Duration 09/24 [employer] Goal (LTG) Pt will show improved strength w/MMT of at least 4+/5 in all direction and LPM at least 3/ 5 in all planes to show improved stability to allow pt to do typical daily activities. LTG Duration 11/05 housework Long-Term Goal (LTG) Pt will be able to return to all typical housework w/o inc pain. LTG Duration 11/06/22 activities Short Term Goal (STG) Pt will be able to returnt o full 16 block walks w/o inc pain greater than 2/10 STG Duration 09/24/22 Long-Term Goal (LTG) Pt will be able to squat to hot die picker objects from floor w/o inc pain. LTG Duration 11/06/22 LYUDMILA Impairment 12/50 Short Term Goal (STG) Pt will improve LYUDMILA score to no greater than 8/50 to show impoved functional ability. STG Duration 2 Long-Term Goal (LTG) Pt will improve LYUDMILA score to no greater than 3/50 to show impoved functional ability. LTG Duration 11/06 Assessment Summary Assessment cues for segmental movement, core activation, postural correction. Demonstrated good understanding of use of wall for postural reference, importance of core activation and alignment. Physical Therapy Plan Frequency and Duration Duration of treatment (weeks) 12 Plan of Care Start Date 08/14/22 Plan of Care End Date 11/06/22 Next Visit Focus/Plan Next Note Type Treatment Note Next Visit Plan cont to work on hip stability strengthening; manual to dec pain
--- NOTE | 2022-09-27 17:46 | PT.OTN ---
Current Diagnoses Spondylosis without myelopathy or radiculopathy, site unspecified (09/27/22) Spinal stenosis, lumbar region without neurogenic claudication (09/27/22) Low back pain, unspecified (09/27/22) Difficulty in walking, not elsewhere classified (09/27/22) Abnormal posture (09/27/22) Weakness (09/27/22) Physical Therapy Treatment Note PT-OP-A Visit Information Start: 08/09/22 18:13 Freq: Status: Active Protocol: Document 09/27/22 09:46 SAK (Rec: 09/27/22 10:31 SAK [id number]) Out-Patient Physical Therapy Visit Information Visit Information Visit Type Treatment Note Visit Note 04/04 Visit Start Time 09:46 Visit Stop Time 10:40 Total Visit Minutes 54 Visit Number 8 Number of BREAKFAST ATTENDANT Visits 0 PT-OP-B Current Condition Start: 08/09/22 18:13 Freq: Status: Active Protocol: Document 08/14/22 13:49 [facility] (Rec: 08/14/22 15:36 [facility] [id number]) Current Condition History of Current Condition Onset Date 4 months Current Complaints LBP History of Current Condition Pt reports back pain that she tried PT at [facility] for but it was feeling worse when she went. She has had back pain for about 4 months now. She saw a neurologist and was put on gabepentin and she takes it 2x /day and mm relaxant at night, which she is considering taking it during the day. She has beeen on meds since end of May and that has helped her sleep more. She had a TIA on Jun 01. it was after her 5th booster. She had face numbness , difficulty getting up and head SB to L. She has been having L groin fluttering/ pulsating that has gotten really annoying in the last week. It does it in all positions but sitting may be worst. It has periods where it starts. She gets shooting pain down legs from ant thighs into ant shins. It isn't constant but it is frequent. She walks 10-12 blocks daily but that is less than what she typically does around 16 blocks or so. In the last week , back pain has inc more. She went to a gathering last night and couldn't stay d/t discomfort in the chairs. Pt has hx of B TKA but they are pretty good. She was riding a bike this spring/summer and that helped a lot. Still slow w/down stairs. It is easier on her back when she keeps her RLE out in front of her and less painful on back. When 1st gets up, she limps a little. Prior Treatments and Tests MRI -see scanned into chart; PT at [facility] Future Testing and Treatments Planned neurosurgeon suggested possible injection if PT not helping-no scheduled out Treatment Goals Patient/Caregiver Goals Have less pain, get back to 16 block walks, be able to pick things up off the floor, be able do housekeeping PT-OP-C Subjective Start: 08/09/22 18:13 Freq: Status: Active Protocol: Document 09/27/22 09:46 SAK (Rec: 09/27/22 10:31 SAK [id number]) OP-PT Subjective Patient Comments Patient Comments YEsterday had very active day, back pain inc as day goes. Compliant with HEP. Feels PT is helping. PT-OP-D Balance Start: 08/09/22 18:13 Freq: Status: Active Protocol: Document 08/14/22 13:49 [facility] (Rec: 08/14/22 15:36 [facility] [id number]) Balance Tests Single Limb Standing Single Limb- Right 7 sec w/lat lean Single Limb- Left 6 sec w/lat lean PT-OP-F Manual Assessment Start: 08/09/22 18:13 Freq: Status: Active Protocol: Document 08/14/22 13:49 [facility] (Rec: 08/14/22 15:36 [facility] [id number]) Manual Assessments Soft Tissue Assessment Soft Tissue Mobility Assessment tightness B glutes, R>L QL, B paraspinals PT-OP-G Mobility & Gait Start: 08/09/22 18:13 Freq: Status: Active Protocol: Document 08/14/22 13:49 [facility] (Rec: 08/14/22 15:36 [facility] [id number]) OP Gait Assessment Comments Gait Comments Dec push off , dec RLE stance time, REaches fwd w/RLE , tries to keep pelvis rigid PT-OP-J Posture/Palpation/Skin Start: 08/09/22 18:13 Freq: Status: Active Protocol: Document 08/14/22 13:49 [facility] (Rec: 08/14/22 15:36 [id number] Posture Evaluation [facility] Postural Classification System [facility] Postural Classifications Posterior/Anterior Vertebral Compression Test 0 Lumbar Protective Mechanism Left AP 0 Lumbar Protective Mechanism Right AP 0 Lumbar Protective Mechanism Left PA 1 Lumbar Protective Mechanism Right PA 1 Comments Posture Comments L pelvic shear, L torso rotation, R iliac crest higher than L, equal greater troch height, R LE ER PT-OP-K Range of Motion Start: 08/09/22 18:13 Freq: Status: Active Protocol: Document 08/14/22 13:49 [facility] (Rec: 08/14/22 15:36 [id number] Lumbar Spine Range of Motion Lumbar Spine Active Percentage Flexion 5 Extension 40 Rotation Left 40 Rotation Right 10 Lateral Flexion Left 40 Lateral Flexion Right 20 Comments ipsi pain w/SB, pain w/flex & ext, more HS use w/flex fwd, limited spine motion; pain in R side w/rot B PT-OP-L Special Tests Start: 08/09/22 18:13 Freq: Status: Active Protocol: Document 08/14/22 13:49 [facility] (Rec: 08/14/22 15:36 [place] [id number]) Special Tests Lumbar Spine Special Tests Straight Leg Raise Test Results neg mild HS tightness Slump Test Results neg B PT-OP-M Strength Start: 08/09/22 18:13 Freq: Status: Active Protocol: Document 08/14/22 13:49 [facility] (Rec: 08/14/22 15:36 [place] [id number]) Hip Strength Hip Manual Muscle Testing Right Flexion (L2) 3+ Fair+ Extension (S1) 3 Fair Abduction 4 Good External Rotation 3+ Fair+ Internal Rotation 4- Good- Left Flexion (L2) 4- Good- Extension (S1) 4- Good- Abduction 4 Good External Rotation 3+ Fair+ Internal Rotation 4+ Good+ Knee Strength Knee Manual Muscle Testing Right Flexion (S2) 5 Normal Extension (L3) 4 Good Left Flexion (S2) 5 Normal Extension (L3) 4 Good Ankle/Foot Strength Ankle and Foot Manual Muscle Testing Right Dorsiflexion (L4) 5 Normal Plantarflexion (S1) 4 Good Comments 13 heel raises Left Dorsiflexion (L4) 5 Normal Plantarflexion (S1) 4 Good Comments 14 heel raises PT-OP-Q Treatments Start: 08/09/22 18:13 Freq: Status: Active Protocol: Document 09/27/22 09:46 [facility] (Rec: 09/27/22 10:31 [facility] [id number]) Cardio Equipment Recumbent Stepper (Sci-Fit) Duration (Minutes) 7 Resistance 1 Seat Position 7 Other cues for core activation, LE alignment Gym Equipment Sport Cord green Exercise Details forward Cord/Resistance green Reps/Duration 10x Comments cues for postural alignment and gluteal activation Therapeutic Exercises Supine Exercises bridge Supine Exercise Name segmental Reps/Minutes 10x Comments small, pain-free movement stretches Supine Exercise Name HEP pelvic tilts Supine Exercise Name min cues Reps/Minutes 5 Sidelying Exercises abd Side bilateral Reps/Minutes 15 Comments cues for alignment, core activation clamshell Reps/Minutes 10x Comments cues for alignment, core activation Standing Exercises shld ext Equipment Used L1 TB Reps/Minutes 10x Comments postural cues wall posture Reps/Minutes 5x Comments cues for relaxed knees, core, should, chin tuck Gait Training Gait Activity stairs Level of Assistance verbal cues Distance/Duration 4 stairs x 2 Treatment Focus postural alignment, gluteal activation Manual Therapy Treatment Soft Tissue Mobilization glutes Body Location instructed for self-massage with tennis ball Mobilization Type Instrument Assisted Intensity/Depth mod Comments w/hip rotation, heelslides Self-Care/Home Management Treatment Education Patient Education Body Mechanics,Home Exercise Program,Posture Other Education instruction for ribcage over pelvis PT-OP-R Modalities Start: 08/09/22 18:13 Freq: Status: Active Protocol: Document 09/27/22 09:46 [facility] (Rec: 09/27/22 10:31 [facility] [id number]) Hot Pack/Cold Pack Treatment Cold Pack Location LB Patient Position Hooklying Treatment Duration (minutes) 10 PT-OP-T Assessment and Plan Start: 08/09/22 18:13 Freq: Status: Active Protocol: Document 09/27/22 09:46 [facility] (Rec: 09/27/22 10:31 [facility] [id number]) Physical Therapy Assessment Goals posture Laboratory Scientist Goal (LTG) Pt will show improved postural alignment in order to dec pain w/sitting/standing for long periods by scoring at least 3/5 on VCT. LTG Duration 11/05 strength Short Term Goal (STG) pt will be indep w/HEP STG Duration 09/24 Laboratory Scientist Goal (LTG) Pt will show improved strength w/MMT of at least 4+/5 in all direction and LPM at least 3/ 5 in all planes to show improved stability to allow pt to do typical daily activities. LTG Duration 11/05 housework Mcfp Goal (LTG) Pt will be able to return to all typical housework w/o inc pain. LTG Duration 11/06/22 activities Short Term Goal (STG) Pt will be able to returnt o full 16 block walks w/o inc pain greater than 2/10 STG Duration 09/24/22 Mcfp Goal (LTG) Pt will be able to squat to pick remover objects from floor w/o inc pain. LTG Duration 11/06/22 LYUDMILA Impairment 12/50 Short Term Goal (STG) Pt will improve LYUDMILA score to no greater than 8/50 to show impoved functional ability. STG Duration 09/26 Laboratory Scientist Goal (LTG) Pt will improve LYUDMILA score to no greater than 3/50 to show impoved functional ability. LTG Duration 11/06 Progress Towards Goals Progress Towards Goals Progressing Toward Goals Assessment Summary Assessment Patient demonstrating improved postural alignment and focus on alignment and core activation with all activities . Patient instructed in self- massage with use of tennis ball and verbalized good understanding. Progressed clamshell from supine with band to sidelying. Physical Therapy Plan Frequency and Duration Duration of treatment (weeks) 12 Plan of Care Start Date 08/14/22 Plan of Care End Date 11/06/22 Next Visit Focus/Plan Next Note Type Treatment Note Next Visit Plan cont to work on hip stability, postural correction and core stab, strengthening; manual therapy as needed to dec pain
--- NOTE | 2022-10-01 14:33 | PT.OTN ---
Current Diagnoses Spondylosis without myelopathy or radiculopathy, site unspecified (10/01/22) Spinal stenosis, lumbar region without neurogenic claudication (10/01/22) Low back pain, unspecified (10/01/22) Difficulty in walking, not elsewhere classified (10/01/22) Abnormal posture (10/01/22) Weakness (10/01/22) Physical Therapy Treatment Note PT-OP-A Visit Information Start: 08/09/22 18:13 Freq: Status: Active Protocol: Document 10/01/22 08:18 [facility] (Rec: 10/01/22 14:33 [facility] [id number]) Out-Patient Physical Therapy Visit Information Visit Information Visit Type Treatment Note Visit Note 05/05 Visit Start Time 08:20 Visit Stop Time 09:00 Total Visit Minutes 40 Visit Number 9 Number of HEADER UP Visits 0 PT-OP-B Current Condition Start: 08/09/22 18:13 Freq: Status: Active Protocol: Document 08/14/22 13:49 [facility] (Rec: 08/14/22 15:36 [facility] [id number]) Current Condition History of Current Condition Onset Date 4 months Current Complaints LBP History of Current Condition Pt reports back pain that she [facility] but it was feeling worse when she went. She has had back pain for about 4 months now. She saw a neurologist and was put on gabepentin and she takes it 2x /day and mm relaxant at night, which she is considering taking it during the day. She has beeen on meds since end of May and that has helped her sleep more. She had a TIA on Jun 01. it was after her 5th booster. She had face numbness , difficulty getting up and head SB to L. She has been having L groin fluttering/ pulsating that has gotten really annoying in the last week. It does it in all positions but sitting may be worst. It has periods where it starts. She gets shooting pain down legs from ant thighs into ant shins. It isn't constant but it is frequent. She walks 10-12 blocks daily but that is less than what she typically does around 16 blocks or so. In the last week , back pain has inc more. She went to a gathering last night and couldn't stay d/t discomfort in the chairs. Pt has hx of B TKA but they are pretty good. She was riding a bike this spring/summer and that helped a lot. Still slow w/down stairs. It is easier on her back when she keeps her RLE out in front of her and less painful on back. When 1st gets up, she limps a little. Prior Treatments and Tests MRI -see scanned into chart; PT at [facility] Future Testing and Treatments Planned neurosurgeon suggested possible injection if PT not helping-no scheduled out Treatment Goals Patient/Caregiver Goals Have less pain, get back to 16 block walks, be able to pick things up off the floor, be able do housekeeping PT-OP-C Subjective Start: 08/09/22 18:13 Freq: Status: Active Protocol: Document 10/01/22 08:18 [facility] (Rec: 10/01/22 14:33 [facility] [id number]) OP-PT Subjective Patient Comments Patient Comments Pt reports overall she is doing well. back hurts as day goes on PT-OP-D Balance Start: 08/09/22 18:13 Freq: Status: Active Protocol: Document 08/14/22 13:49 [facility] (Rec: 08/14/22 15:36 [facility] [id number]) Balance Tests Single Limb Standing Single Limb- Right 7 sec w/lat lean Single Limb- Left 6 sec w/lat lean PT-OP-F Manual Assessment Start: 08/09/22 18:13 Freq: Status: Active Protocol: Document 08/14/22 13:49 [facility] (Rec: 08/14/22 15:36 [facility] [id number]) Manual Assessments Soft Tissue Assessment Soft Tissue Mobility Assessment tightness B glutes, R>L QL, B paraspinals PT-OP-G Mobility & Gait Start: 08/09/22 18:13 Freq: Status: Active Protocol: Document 08/14/22 13:49 [facility] (Rec: 08/14/22 15:36 [facility] [id number]) OP Gait Assessment Comments Gait Comments Dec push off , dec RLE stance time, REaches fwd w/RLE , tries to keep pelvis rigid PT-OP-J Posture/Palpation/Skin Start: 08/09/22 18:13 Freq: Status: Active Protocol: Document 08/14/22 13:49 [facility] (Rec: 08/14/22 15:36 [facility] [id number]) Posture Evaluation [facility] Postural Classification System [facility] Postural Classifications Posterior/Anterior Vertebral Compression Test 0 Lumbar Protective Mechanism Left AP 0 Lumbar Protective Mechanism Right AP 0 Lumbar Protective Mechanism Left PA 1 Lumbar Protective Mechanism Right PA 1 Comments Posture Comments L pelvic shear, L torso rotation, R iliac crest higher than L, equal greater troch height, R LE ER PT-OP-K Range of Motion Start: 08/09/22 18:13 Freq: Status: Active Protocol: Document 08/14/22 13:49 [facility] (Rec: 08/14/22 15:36 [facility] [id number]) Lumbar Spine Range of Motion Lumbar Spine Active Percentage Flexion 5 Extension 40 Rotation Left 40 Rotation Right 10 Lateral Flexion Left 40 Lateral Flexion Right 20 Comments ipsi pain w/SB, pain w/flex & ext, more HS use w/flex fwd, limited spine motion; pain in R side w/rot B PT-OP-L Special Tests Start: 08/09/22 18:13 Freq: Status: Active Protocol: Document 08/14/22 13:49 [facility] (Rec: 08/14/22 15:36 [facility] [id number]) Special Tests Lumbar Spine Special Tests Straight Leg Raise Test Results neg mild HS tightness Slump Test Results neg B PT-OP-M Strength Start: 08/09/22 18:13 Freq: Status: Active Protocol: Document 08/14/22 13:49 [facility] (Rec: 08/14/22 15:36 [facility] [id number]) Hip Strength Hip Manual Muscle Testing Right Flexion (L2) 3+ Fair+ Extension (S1) 3 Fair Abduction 4 Good External Rotation 3+ Fair+ Internal Rotation 4- Good- Left Flexion (L2) 4- Good- Extension (S1) 4- Good- Abduction 4 Good External Rotation 3+ Fair+ Internal Rotation 4+ Good+ Knee Strength Knee Manual Muscle Testing Right Flexion (S2) 5 Normal Extension (L3) 4 Good Left Flexion (S2) 5 Normal Extension (L3) 4 Good Ankle/Foot Strength Ankle and Foot Manual Muscle Testing Right Dorsiflexion (L4) 5 Normal Plantarflexion (S1) 4 Good Comments 13 heel raises Left Dorsiflexion (L4) 5 Normal Plantarflexion (S1) 4 Good Comments 14 heel raises PT-OP-Q Treatments Start: 08/09/22 18:13 Freq: Status: Active Protocol: Document 10/01/22 08:18 [facility] (Rec: 10/01/22 14:33 [facility] [id number]) Therapeutic Exercises Supine Exercises bridge Supine Exercise Name cues for core and glutes Side bilateral Reps/Minutes 10 LTR Side bilateral Reps/Minutes 10 Comments cues for core activation & segmental control TAbd Supine Exercise Name 1. SLR 2. scissor march Side bilateral Reps/Minutes 10 ea Comments cues for core Sidelying Exercises abd Side bilateral Reps/Minutes 15 Comments cues for alignment, core activation clamshell Reps/Minutes 10x Comments cues for alignment, core activation Manual Therapy Treatment Soft Tissue Mobilization lumbar Body Location B ES & QL Mobilization Type Rolling,Strumming Intensity/Depth Moderate Body Position Prone PT-OP-R Modalities Start: 08/09/22 18:13 Freq: Status: Active Protocol: Document 09/27/22 09:46 [facility] (Rec: 09/27/22 10:31 SAK [id number]) Hot Pack/Cold Pack Treatment Cold Pack Location LB Patient Position Hooklying Treatment Duration (minutes) 10 PT-OP-T Assessment and Plan Start: 08/09/22 18:13 Freq: Status: Active Protocol: Document 10/01/22 08:18 [facility] (Rec: 10/01/22 14:33 [facility] [id number]) Physical Therapy Assessment Goals posture Daycare Provider Goal (LTG) Pt will show improved postural alignment in order to dec pain w/sitting/standing for long periods by scoring at least 3/5 on VCT. LTG Duration 11/05 strength Short Term Goal (STG) pt will be indep w/HEP STG Duration 09/24 Long-Term Goal (LTG) Pt will show improved strength w/MMT of at least 4+/5 in all direction and LPM at least 3/ 5 in all planes to show improved stability to allow pt to do typical daily activities. LTG Duration 11/05 housework Long-Term Goal (LTG) Pt will be able to return to all typical housework w/o inc pain. LTG Duration 11/06/22 activities Short Term Goal (STG) Pt will be able to returnt o full 16 block walks w/o inc pain greater than 2/10 STG Duration 09/24/22 Daycare Provider Goal (LTG) Pt will be able to squat to sisal picker objects from floor w/o inc pain. LTG Duration 11/06/22 LYUDMILA Impairment 12/ Short Term Goal (STG) Pt will improve LYUDMILA score to no greater than 8/50 to show impoved functional ability. STG Duration 09/26 Daycare Provider Goal (LTG) Pt will improve LYUDMILA score to no greater than 3/50 to show impoved functional ability. LTG Duration 11/06 Assessment Summary Assessment Pt required cueing with exercises today but was able to progress to more advaned exercises. Physical Therapy Plan Frequency and Duration Duration of treatment (weeks) 12 Plan of Care Start Date 08/14/22 Plan of Care End Date 11/06/22 Next Visit Focus/Plan Next Note Type Progress Note Next Visit Plan cont to work on hip stability, postural correction and core stab, strengthening; manual therapy as needed to dec pain
--- NOTE | 2022-10-03 10:38 | PT.OTN ---
Current Diagnoses Spondylosis without myelopathy or radiculopathy, site unspecified (10/03/22) Spinal stenosis, lumbar region without neurogenic claudication (10/03/22) Low back pain, unspecified (10/03/22) Difficulty in walking, not elsewhere classified (10/03/22) Abnormal posture (10/03/22) Weakness (10/03/22) Physical Therapy Treatment Note PT-OP-A Visit Information Start: 08/09/22 18:13 Freq: Status: Active Protocol: Document 10/03/22 09:49 [facility] (Rec: 10/03/22 10:38 [facility] [id number]) Out-Patient Physical Therapy Visit Information Visit Information Visit Type Progress Note Visit Note 09/04 Visit Start Time 09:48 Visit Stop Time 10:28 Total Visit Minutes 40 Visit Number 10 Number of [employer] Visits 0 PT-OP-B Current Condition Start: 08/09/22 18:13 Freq: Status: Active Protocol: Document 08/14/22 13:49 [facility] (Rec: 08/14/22 15:36 [facility] [id number]) Current Condition History of Current Condition Onset Date 4 months Current Complaints LBP History of Current Condition Pt reports back pain that she tried PT [facility] for but it was feeling worse when she went. She has had back pain for about 4 months now. She saw a neurologist and was put on gabepentin and she takes it 2x /day and mm relaxant at night, which she is considering taking it during the day. She has beeen on meds since end of May and that has helped her sleep more. She had a TIA on Jun 01. it was after her 5th booster. She had face numbness , difficulty getting up and head SB to L. She has been having L groin fluttering/ pulsating that has gotten really annoying in the last week. It does it in all positions but sitting may be worst. It has periods where it starts. She gets shooting pain down legs from ant thighs into ant shins. It isn't constant but it is frequent. She walks 10-12 blocks daily but that is less than what she typically does around 16 blocks or so. In the last week , back pain has inc more. She went to a gathering last night and couldn't stay d/t discomfort in the chairs. Pt has hx of B TKA but they are pretty good. She was riding a bike this spring/summer and that helped a lot. Still slow w/down stairs. It is easier on her back when she keeps her RLE out in front of her and less painful on back. When 1st gets up, she limps a little. Prior Treatments and Tests MRI -see scanned into chart; PT at [facility] Future Testing and Treatments Planned neurosurgeon suggested possible injection if PT not helping-no scheduled out Treatment Goals Patient/Caregiver Goals Have less pain, get back to 16 block walks, be able to pick things up off the floor, be able do housekeeping PT-OP-C Subjective Start: 08/09/22 18:13 Freq: Status: Active Protocol: Document 10/03/22 09:49 [facility] (Rec: 10/03/22 10:38 [id number]-PT Subjective Patient Comments Patient Comments Overall improving Patient Reported Progress Improving PT-OP-D Balance Start: 08/09/22 18:13 Freq: Status: Active Protocol: Document 08/14/22 13:49 [facility] (Rec: 08/14/22 15:36 [id number] Balance Tests Single Limb Standing Single Limb- Right 7 sec w/lat lean Single Limb- Left 6 sec w/lat lean PT-OP-F Manual Assessment Start: 08/09/22 18:13 Freq: Status: Active Protocol: Document 08/14/22 13:49 [facility] (Rec: 08/14/22 15:36 [facility] [id number]) Manual Assessments Soft Tissue Assessment Soft Tissue Mobility Assessment tightness B glutes, R>L QL, B paraspinals PT-OP-G Mobility & Gait Start: 08/09/22 18:13 Freq: Status: Active Protocol: Document 08/14/22 13:49 [facility] (Rec: 08/14/22 15:36 [facility] [id number]) OP Gait Assessment Comments Gait Comments Dec push off , dec RLE stance time, REaches fwd w/RLE , tries to keep pelvis rigid PT-OP-J Posture/Palpation/Skin Start: 08/09/22 18:13 Freq: Status: Active Protocol: Document 10/03/22 09:49 [facility] (Rec: 10/03/22 10:38 [facility] [id number]) Posture Evaluation [facility] Postural Classification System Vertebral Compression Test 1 Lumbar Protective Mechanism Left AP 1 Lumbar Protective Mechanism Right AP 1 Lumbar Protective Mechanism Left PA 2 Lumbar Protective Mechanism Right PA 2 PT-OP-K Range of Motion Start: 08/09/22 18:13 Freq: Status: Active Protocol: Document 08/14/22 13:49 [facility] (Rec: 08/14/22 15:36 [facility] [id number]) Lumbar Spine Range of Motion Lumbar Spine Active Percentage Flexion 5 Extension 40 Rotation Left 40 Rotation Right 10 Lateral Flexion Left 40 Lateral Flexion Right 20 Comments ipsi pain w/SB, pain w/flex & ext, more HS use w/flex fwd, limited spine motion; pain in R side w/rot B PT-OP-L Special Tests Start: 08/09/22 18:13 Freq: Status: Active Protocol: Document 08/14/22 13:49 [facility] (Rec: 08/14/22 15:36 [facility] [id number]) Special Tests Lumbar Spine Special Tests Straight Leg Raise Test Results neg mild HS tightness Slump Test Results neg B PT-OP-M Strength Start: 08/09/22 18:13 Freq: Status: Active Protocol: Document 10/03/22 09:49 [facility] (Rec: 10/03/22 10:38 [facility] [id number]) Hip Strength Hip Manual Muscle Testing Right Flexion (L2) 4 Good Extension (S1) 4- Good- Abduction 4+ Good+ Adduction 4 Good External Rotation 4 Good Internal Rotation 4 Good Left Flexion (L2) 4- Good- Extension (S1) 4- Good- Abduction 4+ Good+ Adduction 4+ Good+ External Rotation 4 Good Internal Rotation 4 Good Knee Strength Knee Manual Muscle Testing Right Flexion (S2) 5 Normal Extension (L3) 5 Normal Left Flexion (S2) 5 Normal Extension (L3) 5 Normal Ankle/Foot Strength Ankle and Foot Manual Muscle Testing Right Dorsiflexion (L4) 5 Normal Plantarflexion (S1) 5 Normal Comments 20 heel raises Left Dorsiflexion (L4) 5 Normal Plantarflexion (S1) 5 Normal Comments 20 heel raises PT-OP-Q Treatments Start: 08/09/22 18:13 Freq: Status: Active Protocol: Document 10/03/22 09:49 [facility] (Rec: 10/03/22 10:38 [facility] [id number]) Therapeutic Exercises Supine Exercises bridge Supine Exercise Name cues for core and glutes Side bilateral Reps/Minutes 5 Comments cues comfortable range LTR Side bilateral Reps/Minutes 5 Comments cues for core activation & segmental control TAbd Supine Exercise Name 1. SLR 2. scissor march Side bilateral Reps/Minutes 1. 5 2. 10 Comments cues for core Sidelying Exercises abd Side bilateral Reps/Minutes 8 Comments cues for alignment, core activation clamshell Equipment Used L1 Reps/Minutes 8 Comments cues for alignment, core activation PT-OP-R Modalities Start: 08/09/22 18:13 Freq: Status: Active Protocol: Document 09/27/22 09:46 [facility] (Rec: 09/27/22 10:31 [facility] [id number]) Hot Pack/Cold Pack Treatment Cold Pack Location LB Patient Position Hooklying Treatment Duration (minutes) 10 PT-OP-T Assessment and Plan Start: 08/09/22 18:13 Freq: Status: Active Protocol: Document 10/03/22 09:49 [facility] (Rec: 10/03/22 10:38 [facility] [id number]) Physical Therapy Assessment Goals posture Guest Services Coordinator Goal (LTG) Pt will show improved postural alignment in order to dec pain w/sitting/standing for long periods by scoring at least 3/5 on VCT. 10/03-08/30 LTG Duration 11/05 strength Short Term Goal (STG) pt will be indep w/HEP STG Duration achieved and advancing as able Mcfp Goal (LTG) Pt will show improved strength w/MMT of at least 4+/5 in all direction and LPM at least 3/ 5 in all planes to show improved stability to allow pt to do typical daily activities. 10/03-improving LTG Duration 11/05 housework Guest Services Coordinator Goal (LTG) Pt will be able to return to all typical housework w/o inc pain. 10/03-has started returning to more of her housework but did hire a cleaning lady. Avoiding vacuuming, sweeping; still feels exhausted with long day of cleaning. LTG Duration 11/06/22 activities Short Term Goal (STG) Pt will be able to returnt o full 16 block walks w/o inc pain greater than 2/10 10/03-10-12 blocks a day at 2/10 - avoiding hills twice a day STG Duration 09/24/22 Guest Services Coordinator Goal (LTG) Pt will be able to squat to roller picker objects from floor w/o inc pain. 10/03-still difficult LTG Duration 11/06/22 LYUDMILA Impairment Short Term Goal (STG) Pt will improve LYUDMILA score to no greater than 8/50 to show impoved functional ability. 10/03- STG Duration 09/26 Guest Services Coordinator Goal (LTG) Pt will improve LYUDMILA score to no greater than 3/50 to show impoved functional ability. LTG Duration 11/06 Assessment Summary Assessment Pt is making good progress with therapy and demonstrating dec pain per report overall and is increasing her wakling again. Pt is noting pain more at the end of the day. She is builidng up her core and LE strength well w/HEP. Cont PT to cont to improve funcitonal ability Physical Therapy Plan Frequency and Duration Duration of treatment (weeks) 12 Plan of Care Start Date 08/14/22 Plan of Care End Date 11/06/22 Therapeutic Interventions Therapeutic Interventions Aquatic Therapy,Balance Training,Gait Training,Home Exercise Program,Joint Mobilizations,Manual Therapy, Neuromuscular Re-education, Orthotic/Prosthetic Management ,Patient/Caregiver Education, Self-Care/Home Management,Soft Tissue Mobilization,Taping, Therapeutic Activities, Therapeutic Exercises Modalities Cold Pack/Ice Massage,Electric Stimulation,Hot Packs, Traction- Mechanical, Ultrasound Next Visit Focus/Plan Next Note Type Treatment Note Next Visit Plan cont to work on hip stability, postural correction and core stab, strengthening; manual therapy as needed to dec pain
--- NOTE | 2022-10-09 17:18 | PT.OTN ---
Current Diagnoses Spondylosis without myelopathy or radiculopathy, site unspecified (10/09/22) Spinal stenosis, lumbar region without neurogenic claudication (10/09/22) Low back pain, unspecified (10/09/22) Difficulty in walking, not elsewhere classified (10/09/22) Abnormal posture (10/09/22) Weakness (10/09/22) Physical Therapy Treatment Note PT-OP-A Visit Information Start: 08/09/22 18:13 Freq: Status: Active Protocol: Document 10/09/22 13:00 [facility] (Rec: 10/09/22 17:18 [facility] [id number]) Out-Patient Physical Therapy Visit Information Visit Information Visit Type Treatment Note Visit Note 10/05 Visit Start Time 13:02 Visit Stop Time 13:55 Total Visit Minutes 53 Visit Number 11 Number of [employer] Visits 0 PT-OP-B Current Condition Start: 08/09/22 18:13 Freq: Status: Active Protocol: Document 08/14/22 13:49 [facility] (Rec: 08/14/22 15:36 [facility] [id number]) Current Condition History of Current Condition Onset Date 4 months Current Complaints LBP History of Current Condition Pt reports back pain that she tried PT [facility] for but it was feeling worse when she went. She has had back pain for about 4 months now. She saw a neurologist and was put on gabepentin and she takes it 2x /day and mm relaxant at night, which she is considering taking it during the day. She has beeen on meds since end of May and that has helped her sleep more. She had a TIA on Jun 01. it was after her 5th booster. She had face numbness , difficulty getting up and head SB to L. She has been having L groin fluttering/ pulsating that has gotten really annoying in the last week. It does it in all positions but sitting may be worst. It has periods where it starts. She gets shooting pain down legs from ant thighs into ant shins. It isn't constant but it is frequent. She walks 10-12 blocks daily but that is less than what she typically does around 16 blocks or so. In the last week , back pain has inc more. She went to a gathering last night and couldn't stay d/t discomfort in the chairs. Pt has hx of B TKA but they are pretty good. She was riding a bike this spring/summer and that helped a lot. Still slow w/down stairs. It is easier on her back when she keeps her RLE out in front of her and less painful on back. When 1st gets up, she limps a little. Prior Treatments and Tests MRI -see scanned into chart; PT at [facility] Future Testing and Treatments Planned neurosurgeon suggested possible injection if PT not helping-no scheduled out Treatment Goals Patient/Caregiver Goals Have less pain, get back to 16 block walks, be able to pick things up off the floor, be able do housekeeping PT-OP-C Subjective Start: 08/09/22 18:13 Freq: Status: Active Protocol: Document 10/09/22 13:00 [facility] (Rec: 10/09/22 17:18 [facility] [id number]) OP-PT Subjective Patient Comments Patient Comments Pt reports she has been pretty painful the last couple days. Unsure what she did yesterday but today she did a lot of carrying things inculding water and that irritated back. PT-OP-D Balance Start: 08/09/22 18:13 Freq: Status: Active Protocol: Document 08/14/22 13:49 [facility] (Rec: 08/14/22 15:36 [facility] [id number]) Balance Tests Single Limb Standing Single Limb- Right 7 sec w/lat lean Single Limb- Left 6 sec w/lat lean PT-OP-F Manual Assessment Start: 08/09/22 18:13 Freq: Status: Active Protocol: Document 08/14/22 13:49 [facility] (Rec: 08/14/22 15:36 [facility] [id number]) Manual Assessments Soft Tissue Assessment Soft Tissue Mobility Assessment tightness B glutes, R>L QL, B paraspinals PT-OP-G Mobility & Gait Start: 08/09/22 18:13 Freq: Status: Active Protocol: Document 08/14/22 13:49 [facility] (Rec: 08/14/22 15:36 [facility] [id number]) OP Gait Assessment Comments Gait Comments Dec push off , dec RLE stance time, REaches fwd w/RLE , tries to keep pelvis rigid PT-OP-J Posture/Palpation/Skin Start: 08/09/22 18:13 Freq: Status: Active Protocol: Document 10/03/22 09:49 [facility] (Rec: 10/03/22 10:38 [facility] [id number]) Posture Evaluation [facility] Postural Classification System Vertebral Compression Test 1 Lumbar Protective Mechanism Left AP 1 Lumbar Protective Mechanism Right AP 1 Lumbar Protective Mechanism Left PA 2 Lumbar Protective Mechanism Right PA 2 PT-OP-K Range of Motion Start: 08/09/22 18:13 Freq: Status: Active Protocol: Document 08/14/22 13:49 [facility] (Rec: 08/14/22 15:36 [facility] [id number]) Lumbar Spine Range of Motion Lumbar Spine Active Percentage Flexion 5 Extension 40 Rotation Left 40 Rotation Right 10 Lateral Flexion Left 40 Lateral Flexion Right 20 Comments ipsi pain w/SB, pain w/flex & ext, more HS use w/flex fwd, limited spine motion; pain in R side w/rot B PT-OP-L Special Tests Start: 08/09/22 18:13 Freq: Status: Active Protocol: Document 08/14/22 13:49 [facility] (Rec: 08/14/22 15:36 [facility] [id number]) Special Tests Lumbar Spine Special Tests Straight Leg Raise Test Results neg mild HS tightness Slump Test Results neg B PT-OP-M Strength Start: 08/09/22 18:13 Freq: Status: Active Protocol: Document 10/03/22 09:49 [facility] (Rec: 10/03/22 10:38 [facility] [id number]) Hip Strength Hip Manual Muscle Testing Right Flexion (L2) 4 Good Extension (S1) 4- Good- Abduction 4+ Good+ Adduction 4 Good External Rotation 4 Good Internal Rotation 4 Good Left Flexion (L2) 4- Good- Extension (S1) 4- Good- Abduction 4+ Good+ Adduction 4+ Good+ External Rotation 4 Good Internal Rotation 4 Good Knee Strength Knee Manual Muscle Testing Right Flexion (S2) 5 Normal Extension (L3) 5 Normal Left Flexion (S2) 5 Normal Extension (L3) 5 Normal Ankle/Foot Strength Ankle and Foot Manual Muscle Testing Right Dorsiflexion (L4) 5 Normal Plantarflexion (S1) 5 Normal Comments 20 heel raises Left Dorsiflexion (L4) 5 Normal Plantarflexion (S1) 5 Normal Comments 20 heel raises PT-OP-Q Treatments Start: 08/09/22 18:13 Freq: Status: Active Protocol: Document 10/09/22 13:00 [facility] (Rec: 10/09/22 17:18 [facility] [id number]) Manual Therapy Treatment Soft Tissue Mobilization lumbar Body Location B ES & QL Mobilization Type Rolling,Strumming Intensity/Depth Moderate Body Position Prone Joint Mobilizations ribs Comments R caudal glide rib 11 FM thoracic Comments UPA T11 lumbar Comments R downglide L2, L4, L5 FM sacrum Comments L UPA FM PT-OP-R Modalities Start: 08/09/22 18:13 Freq: Status: Active Protocol: Document 10/09/22 13:00 [facility] (Rec: 10/09/22 17:18 [facility] [id number]) Hot Pack/Cold Pack Treatment Cold Pack Location LB Patient Position Hooklying Treatment Duration (minutes) 10 PT-OP-T Assessment and Plan Start: 08/09/22 18:13 Freq: Status: Active Protocol: Document 10/09/22 13:00 [facility] (Rec: 10/09/22 17:18 [facility] [id number]) Physical Therapy Assessment Goals posture Mcfp Goal (LTG) Pt will show improved postural alignment in order to dec pain w/sitting/standing for long periods by scoring at least 3/5 on VCT. 10/03-08/30 LTG Duration 11/05 strength Short Term Goal (STG) pt will be indep w/HEP STG Duration achieved and advancing as able Mcfp Goal (LTG) Pt will show improved strength w/MMT of at least 4+/5 in all direction and LPM at least 3/ 5 in all planes to show improved stability to allow pt to do typical daily activities. 10/03-improving LTG Duration 11/05 housework Mcfp Goal (LTG) Pt will be able to return to all typical housework w/o inc pain. 10/03-has started returning to more of her housework but did hire a cleaning lady. Avoiding vacuuming, sweeping; still feels exhausted with long day of cleaning. LTG Duration 11/06/22 activities Short Term Goal (STG) Pt will be able to returnt o full 16 block walks w/o inc pain greater than 2/10 10/03-10-12 blocks a day at 2/10 - avoiding hills twice a day STG Duration 09/24/22 Mcfp Goal (LTG) Pt will be able to squat to last picker objects from floor w/o inc pain. 10/03-still difficult LTG Duration 11/06/22 LYUDMILA Impairment Short Term Goal (STG) Pt will improve LYUDMILA score to no greater than 8/50 to show impoved functional ability. 10/03- STG Duration 09/26 Mcfp Goal (LTG) Pt will improve LYUDMILA score to no greater than 3/50 to show impoved functional ability. LTG Duration 11/06 Assessment Summary Assessment Pt encouraged to ice as needed to dec pain at home. Session spent w/manual to dec pt pain and pt encouraged to do stretching and gentle exercises at home. Pt had improved ROM at the end of session Physical Therapy Plan Frequency and Duration Duration of treatment (weeks) 12 Plan of Care Start Date 08/14/22 Plan of Care End Date 11/06/22 Next Visit Focus/Plan Next Note Type Treatment Note Next Visit Plan cont to work on hip stability, postural correction and core stab, strengthening; manual therapy as needed to dec pain
--- NOTE | 2022-10-15 13:53 | PT.OTN ---
Current Diagnoses Spondylosis without myelopathy or radiculopathy, site unspecified (10/15/22) Spinal stenosis, lumbar region without neurogenic claudication (10/15/22) Low back pain, unspecified (10/15/22) Difficulty in walking, not elsewhere classified (10/15/22) Abnormal posture (10/15/22) Weakness (10/15/22) Physical Therapy Treatment Note PT-OP-A Visit Information Start: 08/09/22 18:13 Freq: Status: Active Protocol: Document 10/15/22 13:07 [facility] (Rec: 10/15/22 13:53 [facility] [id number]) Out-Patient Physical Therapy Visit Information Visit Information Visit Type Treatment Note Visit Note 11/02 Visit Start Time 13:01 Visit Stop Time 13:54 Total Visit Minutes 53 Visit Number 12 Number of PENOLOGY TEACHER Visits 0 PT-OP-B Current Condition Start: 08/09/22 18:13 Freq: Status: Active Protocol: Document 08/14/22 13:49 [facility] (Rec: 08/14/22 15:36 [facility] [id number]) Current Condition History of Current Condition Onset Date 4 months Current Complaints LBP History of Current Condition Pt reports back pain that she [facility] for but it was feeling worse when she went. She has had back pain for about 4 months now. She saw a neurologist and was put on gabepentin and she takes it 2x /day and mm relaxant at night, which she is considering taking it during the day. She has beeen on meds since end of May and that has helped her sleep more. She had a TIA on Jun 01. it was after her 5th booster. She had face numbness , difficulty getting up and head SB to L. She has been having L groin fluttering/ pulsating that has gotten really annoying in the last week. It does it in all positions but sitting may be worst. It has periods where it starts. She gets shooting pain down legs from ant thighs into ant shins. It isn't constant but it is frequent. She walks 10-12 blocks daily but that is less than what she typically does around 16 blocks or so. In the last week , back pain has inc more. She went to a gathering last night and couldn't stay d/t discomfort in the chairs. Pt has hx of B TKA but they are pretty good. She was riding a bike this spring/summer and that helped a lot. Still slow w/down stairs. It is easier on her back when she keeps her RLE out in front of her and less painful on back. When 1st gets up, she limps a little. Prior Treatments and Tests MRI -see scanned into chart; PT at [facility] Future Testing and Treatments Planned neurosurgeon suggested possible injection if PT not helping-no scheduled out Treatment Goals Patient/Caregiver Goals Have less pain, get back to 16 block walks, be able to pick things up off the floor, be able do housekeeping PT-OP-C Subjective Start: 08/09/22 18:13 Freq: Status: Active Protocol: Document 10/15/22 13:07 [facility] (Rec: 10/15/22 13:[id number]PT Subjective Patient Comments Patient Comments pt reports still inc pain that is constant. Worse when doing ADLs like dishes etc. She did just stretches for a couple days then went back to strength because it didn't inc pain. Has been using heat but doesn't know if its helping PT-OP-D Balance Start: 08/09/22 18:13 Freq: Status: Active Protocol: Document 08/14/22 13:49 [facility] (Rec: 08/14/22 15:36 [id number] Balance Tests Single Limb Standing Single Limb- Right 7 sec w/lat lean Single Limb- Left 6 sec w/lat lean PT-OP-F Manual Assessment Start: 08/09/22 18:13 Freq: Status: Active Protocol: Document 08/14/22 13:49 [facility] (Rec: 08/14/22 15:36 [facility] [id number]) Manual Assessments Soft Tissue Assessment Soft Tissue Mobility Assessment tightness B glutes, R>L QL, B paraspinals PT-OP-G Mobility & Gait Start: 08/09/22 18:13 Freq: Status: Active Protocol: Document 08/14/22 13:49 [facility] (Rec: 08/14/22 15:36 [facility] [id number]) OP Gait Assessment Comments Gait Comments Dec push off , dec RLE stance time, REaches fwd w/RLE , tries to keep pelvis rigid PT-OP-J Posture/Palpation/Skin Start: 08/09/22 18:13 Freq: Status: Active Protocol: Document 10/03/22 09:49 [facility] (Rec: 10/03/22 10:38 [facility] [id number]) Posture Evaluation [facility] Postural Classification System Vertebral Compression Test 1 Lumbar Protective Mechanism Left AP 1 Lumbar Protective Mechanism Right AP 1 Lumbar Protective Mechanism Left PA 2 Lumbar Protective Mechanism Right PA 2 PT-OP-K Range of Motion Start: 08/09/22 18:13 Freq: Status: Active Protocol: Document 08/14/22 13:49 [facility] (Rec: 08/14/22 15:36 [facility] [id number]) Lumbar Spine Range of Motion Lumbar Spine Active Percentage Flexion 5 Extension 40 Rotation Left 40 Rotation Right 10 Lateral Flexion Left 40 Lateral Flexion Right 20 Comments ipsi pain w/SB, pain w/flex & ext, more HS use w/flex fwd, limited spine motion; pain in R side w/rot B PT-OP-L Special Tests Start: 08/09/22 18:13 Freq: Status: Active Protocol: Document 08/14/22 13:49 [facility] (Rec: 08/14/22 15:36 [facility] [id number]) Special Tests Lumbar Spine Special Tests Straight Leg Raise Test Results neg mild HS tightness Slump Test Results neg B PT-OP-M Strength Start: 08/09/22 18:13 Freq: Status: Active Protocol: Document 10/03/22 09:49 [facility] (Rec: 10/03/22 10:38 [facility] [id number]) Hip Strength Hip Manual Muscle Testing Right Flexion (L2) 4 Good Extension (S1) 4- Good- Abduction 4+ Good+ Adduction 4 Good External Rotation 4 Good Internal Rotation 4 Good Left Flexion (L2) 4- Good- Extension (S1) 4- Good- Abduction 4+ Good+ Adduction 4+ Good+ External Rotation 4 Good Internal Rotation 4 Good Knee Strength Knee Manual Muscle Testing Right Flexion (S2) 5 Normal Extension (L3) 5 Normal Left Flexion (S2) 5 Normal Extension (L3) 5 Normal Ankle/Foot Strength Ankle and Foot Manual Muscle Testing Right Dorsiflexion (L4) 5 Normal Plantarflexion (S1) 5 Normal Comments 20 heel raises Left Dorsiflexion (L4) 5 Normal Plantarflexion (S1) 5 Normal Comments 20 heel raises PT-OP-Q Treatments Start: 08/09/22 18:13 Freq: Status: Active Protocol: Document 10/15/22 13:07 [facility] (Rec: 10/15/22 13:53 [facility] [id number]) Therapeutic Exercises Supine Exercises TAbd Supine Exercise Name 1. SLR 2. scissor march Side bilateral Reps/Minutes 1. 5 2. 15 Comments cues for core Standing Exercises side step Side bilateral Equipment Used lvl 1 Reps/Minutes 20ft wall posture Standing Exercise Name inc time for set up; B UE ext Reps/Minutes 1 min holdx2 Comments cues for relaxed knees, core, should, chin tuck Therapeutic Activity Therapeutic Activity posture Reps/Minutes 10 min Comments 1. seated unsupported 2. standing working on unlocking knees, even wt btwn front/back of feet both positions : work on dec lumbar lordosis & ribcage set over pelvis Manual Therapy Treatment Soft Tissue Mobilization lumbar Body Location B ES & QL Mobilization Type Rolling,Strumming Intensity/Depth Moderate Comments s/l and seated w/fwd flex Joint Mobilizations lumbar Comments R downglide L2; Upglide L1 FM PT-OP-R Modalities Start: 08/09/22 18:13 Freq: Status: Active Protocol: Document 10/15/22 13:07 [facility] (Rec: 10/15/22 13:53 [facility] [id number]) Hot Pack/Cold Pack Treatment Cold Pack Location LB Patient Position Hooklying Treatment Duration (minutes) 10 PT-OP-T Assessment and Plan Start: 08/09/22 18:13 Freq: Status: Active Protocol: Document 10/15/22 13:07 [facility] (Rec: 10/15/22 13:53 [facility] [id number]) Physical Therapy Assessment Goals posture Half-Way Goal (LTG) Pt will show improved postural alignment in order to dec pain w/sitting/standing for long periods by scoring at least 3/5 on VCT. 10/03-08/30 LTG Duration 3 strength Short Term Goal (STG) pt will be indep w/HEP STG Duration achieved and advancing as able Adobe Ball Mixer Goal (LTG) Pt will show improved strength w/MMT of at least 4+/5 in all direction and LPM at least 3/ 5 in all planes to show improved stability to allow pt to do typical daily activities. 10/03-improving LTG Duration 11/05 housework Adobe Ball Mixer Goal (LTG) Pt will be able to return to all typical housework w/o inc pain. 10/03-has started returning to more of her housework but did hire a cleaning lady. Avoiding vacuuming, sweeping; still feels exhausted with long day of cleaning. LTG Duration 11/06/22 activities Short Term Goal (STG) Pt will be able to returnt o full 16 block walks w/o inc pain greater than 2/10 10/03-10-12 blocks a day at 2/10 - avoiding hills twice a day STG Duration 09/24/22 Adobe Ball Mixer Goal (LTG) Pt will be able to squat to picker objects from floor w/o inc pain. 10/03-still difficult LTG Duration 11/06/22 LYUDMILA Impairment Short Term Goal (STG) Pt will improve LYUDMILA score to no greater than 8/50 to show impoved functional ability. 10/03- STG Duration 09/26 Adobe Ball Mixer Goal (LTG) Pt will improve LYUDMILA score to no greater than 3/50 to show impoved functional ability. LTG Duration 11/06 Assessment Summary Assessment Pt had improved ROM compared to last ession but still was limited w/flex fwd & rotations along w/L SB. She improves w/ postural alignment w/cues. Physical Therapy Plan Frequency and Duration Duration of treatment (weeks) 12 Plan of Care Start Date 08/14/22 Plan of Care End Date 11/06/22 Next Visit Focus/Plan Next Note Type Treatment Note Next Visit Plan cont to work on hip stability, postural correction and core stab, strengthening; manual therapy as needed to dec pain
--- NOTE | 2022-10-18 13:50 | PT.OTN ---
Current Diagnoses Spondylosis without myelopathy or radiculopathy, site unspecified (10/18/22) Spinal stenosis, lumbar region without neurogenic claudication (10/18/22) Low back pain, unspecified (10/18/22) Difficulty in walking, not elsewhere classified (10/18/22) Abnormal posture (10/18/22) Weakness (10/18/22) Physical Therapy Treatment Note PT-OP-A Visit Information Start: 08/09/22 18:13 Freq: Status: Active Protocol: Document 10/18/22 13:01 [facility] (Rec: 10/18/22 13:50 [facility] [id number]) Out-Patient Physical Therapy Visit Information Visit Information Visit Type Treatment Note Visit Note 12/03 Visit Start Time 13:02 Visit Stop Time 13:52 Total Visit Minutes 50 Visit Number 13 Number of BRAKE RIDER Visits 0 PT-OP-B Current Condition Start: 08/09/22 18:13 Freq: Status: Active Protocol: Document 08/14/22 13:49 [facility] (Rec: 08/14/22 15:36 [facility] [id number]) Current Condition History of Current Condition Onset Date 4 months Current Complaints LBP History of Current Condition Pt reports back pain that she tried PT [facility] for but it was feeling worse when she went. She has had back pain for about 4 months now. She saw a neurologist and was put on gabepentin and she takes it 2x /day and mm relaxant at night, which she is considering taking it during the day. She has beeen on meds since end of May and that has helped her sleep more. She had a TIA on Jun 01. it was after her 5th booster. She had face numbness , difficulty getting up and head SB to L. She has been having L groin fluttering/ pulsating that has gotten really annoying in the last week. It does it in all positions but sitting may be worst. It has periods where it starts. She gets shooting pain down legs from ant thighs into ant shins. It isn't constant but it is frequent. She walks 10-12 blocks daily but that is less than what she typically does around 16 blocks or so. In the last week , back pain has inc more. She went to a gathering last night and couldn't stay d/t discomfort in the chairs. Pt has hx of B TKA but they are pretty good. She was riding a bike this spring/summer and that helped a lot. Still slow w/down stairs. It is easier on her back when she keeps her RLE out in front of her and less painful on back. When 1st gets up, she limps a little. Prior Treatments and Tests MRI -see scanned into chart; PT at [facility] Future Testing and Treatments Planned neurosurgeon suggested possible injection if PT not helping-no scheduled out Treatment Goals Patient/Caregiver Goals Have less pain, get back to 16 block walks, be able to pick things up off the floor, be able do housekeeping PT-OP-C Subjective Start: 08/09/22 18:13 Freq: Status: Active Protocol: Document 10/18/22 13:01 [facility] (Rec: 10/18/22 [id number]-PT Subjective Patient Comments Patient Comments Pt reports less discomfort after last session PT-OP-D Balance Start: 08/09/22 18:13 Freq: Status: Active Protocol: Document 08/14/22 13:49 [facility] (Rec: 08/14/22 15:[id number] Balance Tests Single Limb Standing Single Limb- Right 7 sec w/lat lean Single Limb- Left 6 sec w/lat lean PT-OP-F Manual Assessment Start: 08/09/22 18:13 Freq: Status: Active Protocol: Document 08/14/22 13:49 [facility] (Rec: 08/14/22 15:[id number] Manual Assessments Soft Tissue Assessment Soft Tissue Mobility Assessment tightness B glutes, R>L QL, B paraspinals PT-OP-G Mobility & Gait Start: 08/09/22 18:13 Freq: Status: Active Protocol: Document 08/14/22 13:49 [facility] (Rec: 08/14/22 15:36 [facility] [id number]) OP Gait Assessment Comments Gait Comments Dec push off , dec RLE stance time, REaches fwd w/RLE , tries to keep pelvis rigid PT-OP-J Posture/Palpation/Skin Start: 08/09/22 18:13 Freq: Status: Active Protocol: Document 10/03/22 09:49 [facility] (Rec: 10/03/22 10:38 [facility] [id number]) Posture Evaluation [facility] Postural Classification System Vertebral Compression Test 1 Lumbar Protective Mechanism Left AP 1 Lumbar Protective Mechanism Right AP 1 Lumbar Protective Mechanism Left PA 2 Lumbar Protective Mechanism Right PA 2 PT-OP-K Range of Motion Start: 08/09/22 18:13 Freq: Status: Active Protocol: Document 08/14/22 13:49 [facility] (Rec: 08/14/22 15:36 [facility] [id number]) Lumbar Spine Range of Motion Lumbar Spine Active Percentage Flexion 5 Extension 40 Rotation Left 40 Rotation Right 10 Lateral Flexion Left 40 Lateral Flexion Right 20 Comments ipsi pain w/SB, pain w/flex & ext, more HS use w/flex fwd, limited spine motion; pain in R side w/rot B PT-OP-L Special Tests Start: 08/09/22 18:13 Freq: Status: Active Protocol: Document 08/14/22 13:49 [facility] (Rec: 08/14/22 15:36 [facility] [id number]) Special Tests Lumbar Spine Special Tests Straight Leg Raise Test Results neg mild HS tightness Slump Test Results neg B PT-OP-M Strength Start: 08/09/22 18:13 Freq: Status: Active Protocol: Document 10/03/22 09:49 [facility] (Rec: 10/03/22 10:38 [facility] [id number]) Hip Strength Hip Manual Muscle Testing Right Flexion (L2) 4 Good Extension (S1) 4- Good- Abduction 4+ Good+ Adduction 4 Good External Rotation 4 Good Internal Rotation 4 Good Left Flexion (L2) 4- Good- Extension (S1) 4- Good- Abduction 4+ Good+ Adduction 4+ Good+ External Rotation 4 Good Internal Rotation 4 Good Knee Strength Knee Manual Muscle Testing Right Flexion (S2) 5 Normal Extension (L3) 5 Normal Left Flexion (S2) 5 Normal Extension (L3) 5 Normal Ankle/Foot Strength Ankle and Foot Manual Muscle Testing Right Dorsiflexion (L4) 5 Normal Plantarflexion (S1) 5 Normal Comments 20 heel raises Left Dorsiflexion (L4) 5 Normal Plantarflexion (S1) 5 Normal Comments 20 heel raises PT-OP-Q Treatments Start: 08/09/22 18:13 Freq: Status: Active Protocol: Document 10/18/22 13:01 [facility] (Rec: 10/18/22 13:50 [facility] [id number]) Therapeutic Exercises Supine Exercises LTR Supine Exercise Name 5 reps indep; 4 min spent on neuro re edu at L3-5 Side bilateral Reps/Minutes 5 Comments cues for core activation & segmental control Standing Exercises paloff press Side bilateral Equipment Used lvl 1 2 bands Reps/Minutes 12 ea side step Side bilateral Equipment Used lvl 1 Reps/Minutes 20ft wall posture Standing Exercise Name inc time for set up; B UE ext Reps/Minutes 1 min holdx2 Comments cues for relaxed knees, core, should, chin tuck Manual Therapy Treatment Soft Tissue Mobilization lumbar Body Location L>R ES & QL Mobilization Type Rolling,Strumming Intensity/Depth Moderate Body Position Prone Joint Mobilizations lumbar Comments distraction L 3-4, L4-5 FM Neuro Re-Education Treatment Other Activities facilitation Comments LUE chop pattern to RLE facilaition in flex, add ER pattenr PNF Comments ant dep sustained hold L ant elevation rhythmic iniation progressed to sustained holds L PT-OP-R Modalities Start: 08/09/22 18:13 Freq: Status: Active Protocol: Document 10/18/22 13:01 [facility] (Rec: 10/18/22 13:50 [facility] [id number]) Hot Pack/Cold Pack Treatment Cold Pack Location LB Patient Position Hooklying Treatment Duration (minutes) 10 PT-OP-T Assessment and Plan Start: 08/09/22 18:13 Freq: Status: Active Protocol: Document 10/18/22 13:01 [facility] (Rec: 10/18/22 13:50 [facility] [id number]) Physical Therapy Assessment Goals posture Layaway Clerk Goal (LTG) Pt will show improved postural alignment in order to dec pain w/sitting/standing for long periods by scoring at least 3/5 on VCT. 10/03-08/30 LTG Duration 11/05 strength Short Term Goal (STG) pt will be indep w/HEP STG Duration achieved and advancing as able Layaway Clerk Goal (LTG) Pt will show improved strength w/MMT of at least 4+/5 in all direction and LPM at least 3/ 5 in all planes to show improved stability to allow pt to do typical daily activities. 10/03-improving LTG Duration 11/05 housework [facility] Goal (LTG) Pt will be able to return to all typical housework w/o inc pain. 10/03-has started returning to more of her housework but did hire a cleaning lady. Avoiding vacuuming, sweeping; still feels exhausted with long day of cleaning. LTG Duration 11/06/22 activities Short Term Goal (STG) Pt will be able to returnt o full 16 block walks w/o inc pain greater than 2/10 10/03-10-12 blocks a day at 2/10 - avoiding hills twice a day STG Duration 09/24/22 Layaway Clerk Goal (LTG) Pt will be able to squat to pick and shovel worker objects from floor w/o inc pain. 10/03-still difficult LTG Duration 11/06/22 LYUDMILA Impairment Short Term Goal (STG) Pt will improve LYUDMILA score to no greater than 8/50 to show impoved functional ability. 10/03- STG Duration 09/26 [facility] Goal (LTG) Pt will improve LYUDMILA score to no greater than 3/50 to show impoved functional ability. LTG Duration 11/06 Assessment Summary Assessment Pt felt relaxed w/manual treatment.S he required cues w /abd in standing and w/paloff presss along w/wall roll ups. Physical Therapy Plan Frequency and Duration Duration of treatment (weeks) 12 Plan of Care Start Date 08/14/22 Plan of Care End Date 11/06/22 Next Visit Focus/Plan Next Note Type Treatment Note Next Visit Plan cont to work on hip stability, postural correction and core stab, strengthening; manual therapy as needed to dec pain
--- NOTE | 2022-10-22 09:47 | PT.OTN ---
Current Diagnoses Spondylosis without myelopathy or radiculopathy, site unspecified (10/22/22) Spinal stenosis, lumbar region without neurogenic claudication (10/22/22) Low back pain, unspecified (10/22/22) Difficulty in walking, not elsewhere classified (10/22/22) Abnormal posture (10/22/22) Weakness (10/22/22) Physical Therapy Treatment Note PT-OP-A Visit Information Start: 08/09/22 18:13 Freq: Status: Active Protocol: Document 10/22/22 09:03 [facility] (Rec: 10/22/22 09:47 [facility] [id number]) Out-Patient Physical Therapy Visit Information Visit Information Visit Type Treatment Note Visit Note 01/02 Visit Start Time 09:04 Visit Stop Time 09:54 Total Visit Minutes 50 Number of WEARING APPAREL SHAKER Visits 14 PT-OP-B Current Condition Start: 08/09/22 18:13 Freq: Status: Active Protocol: Document 08/14/22 13:49 [facility] (Rec: 08/14/22 15:36 [facility] [id number]) Current Condition History of Current Condition Onset Date 4 months Current Complaints LBP History of Current Condition Pt reports back pain that she tried PT at [facility] for but it was feeling worse when she went. She has had back pain for about 4 months now. She saw a neurologist and was put on gabepentin and she takes it 2x /day and mm relaxant at night, which she is considering taking it during the day. She has beeen on meds since end of May and that has helped her sleep more. She had a TIA on Jun 01. it was after her 5th booster. She had face numbness , difficulty getting up and head SB to L. She has been having L groin fluttering/ pulsating that has gotten really annoying in the last week. It does it in all positions but sitting may be worst. It has periods where it starts. She gets shooting pain down legs from ant thighs into ant shins. It isn't constant but it is frequent. She walks 10-12 blocks daily but that is less than what she typically does around 16 blocks or so. In the last week , back pain has inc more. She went to a gathering last night and couldn't stay d/t discomfort in the chairs. Pt has hx of B TKA but they are pretty good. She was riding a bike this spring/summer and that helped a lot. Still slow w/down stairs. It is easier on her back when she keeps her RLE out in front of her and less painful on back. When 1st gets up, she limps a little. Prior Treatments and Tests MRI -see scanned into chart; PT at [facility] Future Testing and Treatments Planned neurosurgeon suggested possible injection if PT not helping-no scheduled out Treatment Goals Patient/Caregiver Goals Have less pain, get back to 16 block walks, be able to pick things up off the floor, be able do housekeeping PT-OP-C Subjective Start: 08/09/22 18:13 Freq: Status: Active Protocol: Document 10/22/22 09:03 [facility] ([facility]22 [id number] Subjective Patient Comments Patient Comments Pt reports she is doing better . More tightness in back than pain Patient Reported Progress Improving PT-OP-D Balance Start: 08/09/22 18:13 Freq: Status: Active Protocol: Document 08/14/22 13:49 [facility] (Rec: 08/14/22 15:36 [facility] [id number]) Balance Tests Single Limb Standing Single Limb- Right 7 sec w/lat lean Single Limb- Left 6 sec w/lat lean PT-OP-F Manual Assessment Start: 08/09/22 18:13 Freq: Status: Active Protocol: Document 08/14/22 13:49 [facility] (Rec: 08/14/22 15:36 [facility] [id number]) Manual Assessments Soft Tissue Assessment Soft Tissue Mobility Assessment tightness B glutes, R>L QL, B paraspinals PT-OP-G Mobility & Gait Start: 08/09/22 18:13 Freq: Status: Active Protocol: Document 08/14/22 13:49 [facility] (Rec: 08/14/22 15:36 [facility] [id number]) OP Gait Assessment Comments Gait Comments Dec push off , dec RLE stance time, REaches fwd w/RLE , tries to keep pelvis rigid PT-OP-J Posture/Palpation/Skin Start: 08/09/22 18:13 Freq: Status: Active Protocol: Document 10/03/22 09:49 [facility] (Rec: 10/03/22 10:38 [facility] [id number]) Posture Evaluation [facility] Postural Classification System Vertebral Compression Test 1 Lumbar Protective Mechanism Left AP 1 Lumbar Protective Mechanism Right AP 1 Lumbar Protective Mechanism Left PA 2 Lumbar Protective Mechanism Right PA 2 PT-OP-K Range of Motion Start: 08/09/22 18:13 Freq: Status: Active Protocol: Document 08/14/22 13:49 [facility] (Rec: 08/14/22 15:36 [facility] [id number]) Lumbar Spine Range of Motion Lumbar Spine Active Percentage Flexion 5 Extension 40 Rotation Left 40 Rotation Right 10 Lateral Flexion Left 40 Lateral Flexion Right 20 Comments ipsi pain w/SB, pain w/flex & ext, more HS use w/flex fwd, limited spine motion; pain in R side w/rot B PT-OP-L Special Tests Start: 08/09/22 18:13 Freq: Status: Active Protocol: Document 08/14/22 13:49 [facility] (Rec: 08/14/22 15:36 [facility] [id number]) Special Tests Lumbar Spine Special Tests Straight Leg Raise Test Results neg mild HS tightness Slump Test Results neg B PT-OP-M Strength Start: 08/09/22 18:13 Freq: Status: Active Protocol: Document 10/03/22 09:49 [facility] (Rec: 10/03/22 10:38 [facility] [id number]) Hip Strength Hip Manual Muscle Testing Right Flexion (L2) 4 Good Extension (S1) 4- Good- Abduction 4+ Good+ Adduction 4 Good External Rotation 4 Good Internal Rotation 4 Good Left Flexion (L2) 4- Good- Extension (S1) 4- Good- Abduction 4+ Good+ Adduction 4+ Good+ External Rotation 4 Good Internal Rotation 4 Good Knee Strength Knee Manual Muscle Testing Right Flexion (S2) 5 Normal Extension (L3) 5 Normal Left Flexion (S2) 5 Normal Extension (L3) 5 Normal Ankle/Foot Strength Ankle and Foot Manual Muscle Testing Right Dorsiflexion (L4) 5 Normal Plantarflexion (S1) 5 Normal Comments 20 heel raises Left Dorsiflexion (L4) 5 Normal Plantarflexion (S1) 5 Normal Comments 20 heel raises PT-OP-Q Treatments Start: 08/09/22 18:13 Freq: Status: Active Protocol: Document 10/22/22 09:03 [facility] (Rec: 10/22/22 09:47 [facility] [id number]) Gym Equipment Shuttle Balance red clips Comments Fwd & side: WBOS & NBOS progressively dec UE staiblity Therapeutic Ball seated Ball Size/Color 55cm Body Position seated Reps/Duration 12 ea Comments 1. pelvic circles B 2. marche B 3. kicks B Therapeutic Exercises Standing Exercises squats Standing Exercise Name over chair Side bilateral Reps/Minutes 10 Comments max cues for form paloff press Side bilateral Equipment Used lvl 1 2 bands Reps/Minutes 12 ea side step Standing Exercise Name band in hands Side bilateral Equipment Used lvl 1 (2 bands) Reps/Minutes 8 ea wall posture Standing Exercise Name inc time for set up; B UE ext Reps/Minutes 1 min hold Comments cues for relaxed knees, core, should, chin tuck Manual Therapy Treatment Soft Tissue Mobilization lumbar Body Location L>R ES & QL Mobilization Type Rolling,Strumming Intensity/Depth Moderate Body Position Prone PT-OP-R Modalities Start: 08/09/22 18:13 Freq: Status: Active Protocol: Document 10/22/22 09:03 [facility] (Rec: 10/22/22 09:47 [facility] [id number]) Hot Pack/Cold Pack Treatment Cold Pack Location LB Patient Position Hooklying Treatment Duration (minutes) 10 PT-OP-T Assessment and Plan Start: 08/09/22 18:13 Freq: Status: Active Protocol: Document 10/22/22 09:03 [facility] (Rec: 10/22/22 09:47 [facility] [id number]) Physical Therapy Assessment Goals posture Research Food Technologist Goal (LTG) Pt will show improved postural alignment in order to dec pain w/sitting/standing for long periods by scoring at least 3/5 on VCT. 10/03-08/30 LTG Duration 11/05 strength Short Term Goal (STG) pt will be indep w/HEP STG Duration achieved and advancing as able Research Food Technologist Goal (LTG) Pt will show improved strength w/MMT of at least 4+/5 in all direction and LPM at least 3/ 5 in all planes to show improved stability to allow pt to do typical daily activities. 10/03-improving LTG Duration 11/05 housework Halfway Goal (LTG) Pt will be able to return to all typical housework w/o inc pain. 10/03-has started returning to more of her housework but did hire a cleaning lady. Avoiding vacuuming, sweeping; still feels exhausted with long day of cleaning. LTG Duration 11/06/22 activities Short Term Goal (STG) Pt will be able to returnt o full 16 block walks w/o inc pain greater than 2/10 10/03-10-12 blocks a day at 2/10 - avoiding hills twice a day STG Duration 09/24/22 Research Food Technologist Goal (LTG) Pt will be able to squat to oyster picker objects from floor w/o inc pain. 10/03-still difficult LTG Duration 11/06/22 LYUDMILA Impairment Short Term Goal (STG) Pt will improve LYUDMILA score to no greater than 8/50 to show impoved functional ability. 10/03- STG Duration 09/26 Halfway Goal (LTG) Pt will improve LYUDMILA score to no greater than 3/50 to show impoved functional ability. LTG Duration 11/06 Assessment Summary Assessment Pt did well with new exercises but did require cues for all standing exercises still. She was challenged by unstable surfaces for core work. Physical Therapy Plan Frequency and Duration Duration of treatment (weeks) 12 Plan of Care Start Date 08/14/22 Plan of Care End Date 11/06/22 Next Visit Focus/Plan Next Note Type Treatment Note Next Visit Plan cont to work on hip stability, postural correction and core stab, strengthening; manual therapy as needed to dec pain
--- NOTE | 2022-10-25 13:50 | PT.OTN ---
Current Diagnoses Spondylosis without myelopathy or radiculopathy, site unspecified (10/25/22) Spinal stenosis, lumbar region without neurogenic claudication (10/25/22) Low back pain, unspecified (10/25/22) Difficulty in walking, not elsewhere classified (10/25/22) Abnormal posture (10/25/22) Weakness (10/25/22) Physical Therapy Treatment Note PT-OP-A Visit Information Start: 08/09/22 18:13 Freq: Status: Active Protocol: Document 10/25/22 13:01 [facility] (Rec: 10/25/22 13:50 [facility] [id number]) Out-Patient Physical Therapy Visit Information Visit Information Visit Type Treatment Note Visit Note 02/02 Visit Start Time 13:01 Visit Stop Time 13:53 Total Visit Minutes 52 Visit Number 15 Number of SENIOR TELECOMMUNICATIONS TECHNICIAN Visits 0 PT-OP-B Current Condition Start: 08/09/22 18:13 Freq: Status: Active Protocol: Document 08/14/22 13:49 [facility] (Rec: 08/14/22 15:36 [facility] [id number]) Current Condition History of Current Condition Onset Date 4 months Current Complaints LBP History of Current Condition Pt reports back pain that she [facility] but it was feeling worse when she went. She has had back pain for about 4 months now. She saw a neurologist and was put on gabepentin and she takes it 2x /day and mm relaxant at night, which she is considering taking it during the day. She has beeen on meds since end of May and that has helped her sleep more. She had a TIA on Jun 01. it was after her 5th booster. She had face numbness , difficulty getting up and head SB to L. She has been having L groin fluttering/ pulsating that has gotten really annoying in the last week. It does it in all positions but sitting may be worst. It has periods where it starts. She gets shooting pain down legs from ant thighs into ant shins. It isn't constant but it is frequent. She walks 10-12 blocks daily but that is less than what she typically does around 16 blocks or so. In the last week , back pain has inc more. She went to a gathering last night and couldn't stay d/t discomfort in the chairs. Pt has hx of B TKA but they are pretty good. She was riding a bike this spring/summer and that helped a lot. Still slow w/down stairs. It is easier on her back when she keeps her RLE out in front of her and less painful on back. When 1st gets up, she limps a little. Prior Treatments and Tests MRI -see scanned into chart; PT at [facility] Future Testing and Treatments Planned neurosurgeon suggested possible injection if PT not helping-no scheduled out Treatment Goals Patient/Caregiver Goals Have less pain, get back to 16 block walks, be able to pick things up off the floor, be able do housekeeping PT-OP-C Subjective Start: 08/09/22 18:13 Freq: Status: Active Protocol: Document 10/25/22 13:01 [facility] (Rec: 10/25/22 13:50 [facility] [id number]) OP-PT Subjective Patient Comments Patient Comments Pt reports starting yesterday pain in lower thoraicc region. Started in afternoon. Unsure what caused it. She just did normal painter. She is really sore today PT-OP-D Balance Start: 08/09/22 18:13 Freq: Status: Active Protocol: Document 08/14/22 13:49 [facility] (Rec: 08/14/22 15:36 [facility] [id number]) Balance Tests Single Limb Standing Single Limb- Right 7 sec w/lat lean Single Limb- Left 6 sec w/lat lean PT-OP-F Manual Assessment Start: 08/09/22 18:13 Freq: Status: Active Protocol: Document 08/14/22 13:49 [facility] (Rec: 08/14/22 15:36 [facility] [id number]) Manual Assessments Soft Tissue Assessment Soft Tissue Mobility Assessment tightness B glutes, R>L QL, B paraspinals PT-OP-G Mobility & Gait Start: 08/09/22 18:13 Freq: Status: Active Protocol: Document 08/14/22 13:49 [facility] (Rec: 08/14/22 15:36 [facility] [id number]) OP Gait Assessment Comments Gait Comments Dec push off , dec RLE stance time, REaches fwd w/RLE , tries to keep pelvis rigid PT-OP-J Posture/Palpation/Skin Start: 08/09/22 18:13 Freq: Status: Active Protocol: Document 10/03/22 09:49 [facility] (Rec: 10/03/22 10:38 [facility] [id number]) Posture Evaluation [facility] Postural Classification System Vertebral Compression Test 1 Lumbar Protective Mechanism Left AP 1 Lumbar Protective Mechanism Right AP 1 Lumbar Protective Mechanism Left PA 2 Lumbar Protective Mechanism Right PA 2 PT-OP-K Range of Motion Start: 08/09/22 18:13 Freq: Status: Active Protocol: Document 08/14/22 13:49 [facility] (Rec: 08/14/22 15:36 [facility] [id number]) Lumbar Spine Range of Motion Lumbar Spine Active Percentage Flexion 5 Extension 40 Rotation Left 40 Rotation Right 10 Lateral Flexion Left 40 Lateral Flexion Right 20 Comments ipsi pain w/SB, pain w/flex & ext, more HS use w/flex fwd, limited spine motion; pain in R side w/rot B PT-OP-L Special Tests Start: 08/09/22 18:13 Freq: Status: Active Protocol: Document 08/14/22 13:49 [facility] (Rec: 08/14/22 15:36 [facility] [id number]) Special Tests Lumbar Spine Special Tests Straight Leg Raise Test Results neg mild HS tightness Slump Test Results neg B PT-OP-M Strength Start: 08/09/22 18:13 Freq: Status: Active Protocol: Document 10/03/22 09:49 [facility] (Rec: 10/03/22 10:38 [facility] [id number]) Hip Strength Hip Manual Muscle Testing Right Flexion (L2) 4 Good Extension (S1) 4- Good- Abduction 4+ Good+ Adduction 4 Good External Rotation 4 Good Internal Rotation 4 Good Left Flexion (L2) 4- Good- Extension (S1) 4- Good- Abduction 4+ Good+ Adduction 4+ Good+ External Rotation 4 Good Internal Rotation 4 Good Knee Strength Knee Manual Muscle Testing Right Flexion (S2) 5 Normal Extension (L3) 5 Normal Left Flexion (S2) 5 Normal Extension (L3) 5 Normal Ankle/Foot Strength Ankle and Foot Manual Muscle Testing Right Dorsiflexion (L4) 5 Normal Plantarflexion (S1) 5 Normal Comments 20 heel raises Left Dorsiflexion (L4) 5 Normal Plantarflexion (S1) 5 Normal Comments 20 heel raises PT-OP-Q Treatments Start: 08/09/22 18:13 Freq: Status: Active Protocol: Document 10/25/22 13:01 [facility] (Rec: 10/25/22 13:50 [facility] [id number]) Therapeutic Exercises Supine Exercises isometric Supine Exercise Name SL press isometric Side bilateral Reps/Minutes 15 sec x3 Sidelying Exercises open book Side bilateral Reps/Minutes 8 Comments comfortable range Manual Therapy Treatment Soft Tissue Mobilization thoracic Body Location R Lat, L>R paraspinasl Mobilization Type Strumming Joint Mobilizations ribs Comments rib 8 internal torsion FM Rib 5, 7,8 med FM w/SB thoracic Comments transverse glide T9 & 10 R FM upglide T10 L; down glide T 11 R FM Neuro Re-Education Treatment Other Activities facilitation Comments LUE chop pattern to RLE facilaition in flex, add ER pattenr; B flex opposing patterns UEs for irradiation both D1 and D2 B x7 min total PT-OP-R Modalities Start: 08/09/22 18:13 Freq: Status: Active Protocol: Document 10/25/22 13:01 [facility] (Rec: 10/25/22 13:50 [facility] [id number]) Hot Pack/Cold Pack Treatment Cold Pack Location LB Patient Position Hooklying Treatment Duration (minutes) 10 PT-OP-T Assessment and Plan Start: 08/09/22 18:13 Freq: Status: Active Protocol: Document 10/25/22 13:01 [facility] (Rec: 10/25/22 13:50 [facility] [id number]) Physical Therapy Assessment Goals posture Put In Beat Adjuster Goal (LTG) Pt will show improved postural alignment in order to dec pain w/sitting/standing for long periods by scoring at least 3/5 on VCT. 10/03-08/30 LTG Duration 11/05 strength Short Term Goal (STG) pt will be indep w/HEP STG Duration achieved and advancing as able [facility] Goal (LTG) Pt will show improved strength w/MMT of at least 4+/5 in all direction and LPM at least 3/ 5 in all planes to show improved stability to allow pt to do typical daily activities. 10/03-improving LTG Duration 11/05 housework [facility] Goal (LTG) Pt will be able to return to all typical housework w/o inc pain. 10/03-has started returning to more of her housework but did hire a cleaning lady. Avoiding vacuuming, sweeping; still feels exhausted with long day of cleaning. LTG Duration 11/06/22 activities Short Term Goal (STG) Pt will be able to returnt o full 16 block walks w/o inc pain greater than 2/10 10/03-10-12 blocks a day at 2/10 - avoiding hills twice a day STG Duration 09/24/22 [facility] Goal (LTG) Pt will be able to squat to pick up man objects from floor w/o inc pain. 10/03-still difficult LTG Duration 11/06/22 LYUDMILA Impairment Short Term Goal (STG) Pt will improve LYUDMILA score to no greater than 8/50 to show impoved functional ability. 10/03- STG Duration 09/26 Put In Beat Adjuster Goal (LTG) Pt will improve LYUDMILA score to no greater than 3/50 to show impoved functional ability. LTG Duration 11/06 Assessment Summary Assessment Pt was very limite din B SB & rot and ext and improved to much dec pain and almost full ROM in all directions when in sitting. She had difficulty w/ core engagment w/facilitation patterns more on L. Physical Therapy Plan Frequency and Duration Duration of treatment (weeks) 12 Plan of Care Start Date 08/14/22 Plan of Care End Date 11/06/22 Next Visit Focus/Plan Next Note Type Treatment Note Next Visit Plan cont to work on hip stability, postural correction and core stab, strengthening; manual therapy as needed to dec pain
--- NOTE | 2022-10-29 13:47 | PT.OTN ---
Current Diagnoses Spondylosis without myelopathy or radiculopathy, site unspecified (10/29/22) Spinal stenosis, lumbar region without neurogenic claudication (10/29/22) Low back pain, unspecified (10/29/22) Difficulty in walking, not elsewhere classified (10/29/22) Abnormal posture (10/29/22) Weakness (10/29/22) Physical Therapy Treatment Note PT-OP-A Visit Information Start: 08/09/22 18:13 Freq: Status: Active Protocol: Document 10/29/22 13:04 [facility] (Rec: 10/29/22 13:47 [facility] [id number]) Out-Patient Physical Therapy Visit Information Visit Information Visit Type Treatment Note Visit Note 03/04 Visit Start Time 13:00 Visit Stop Time 13:51 Total Visit Minutes 51 Visit Number 16 Number of PAPER TUBE MACHINE OPERATOR Visits 0 PT-OP-B Current Condition Start: 08/09/22 18:13 Freq: Status: Active Protocol: Document 08/14/22 13:49 [facility] (Rec: 08/14/22 15:36 [facility] [id number]) Current Condition History of Current Condition Onset Date 4 months Current Complaints LBP History of Current Condition Pt reports back pain that she tried PT [facility] for but it was feeling worse when she went. She has had back pain for about 4 months now. She saw a neurologist and was put on gabepentin and she takes it 2x /day and mm relaxant at night, which she is considering taking it during the day. She has beeen on meds since end of May and that has helped her sleep more. She had a TIA on Jun 01. it was after her 5th booster. She had face numbness , difficulty getting up and head SB to L. She has been having L groin fluttering/ pulsating that has gotten really annoying in the last week. It does it in all positions but sitting may be worst. It has periods where it starts. She gets shooting pain down legs from ant thighs into ant shins. It isn't constant but it is frequent. She walks 10-12 blocks daily but that is less than what she typically does around 16 blocks or so. In the last week , back pain has inc more. She went to a gathering last night and couldn't stay d/t discomfort in the chairs. Pt has hx of B TKA but they are pretty good. She was riding a bike this spring/summer and that helped a lot. Still slow w/down stairs. It is easier on her back when she keeps her RLE out in front of her and less painful on back. When 1st gets up, she limps a little. Prior Treatments and Tests MRI -see scanned into chart; PT at [facility] Future Testing and Treatments Planned neurosurgeon suggested possible injection if PT not helping-no scheduled out Treatment Goals Patient/Caregiver Goals Have less pain, get back to 16 block walks, be able to pick things up off the floor, be able do housekeeping PT-OP-C Subjective Start: 08/09/22 18:13 Freq: Status: Active Protocol: Document 10/29/22 13:04 [facility] (Rec: 10/29/22 13:47 [id number]-PT Subjective Patient Comments Patient Comments Pt reprots back feeling better and doing ok this weekend. PT-OP-D Balance Start: 08/09/22 18:13 Freq: Status: Active Protocol: Document 08/14/22 13:49 [facility] (Rec: 08/14/22 15:36 [id number] Balance Tests Single Limb Standing Single Limb- Right 7 sec w/lat lean Single Limb- Left 6 sec w/lat lean PT-OP-F Manual Assessment Start: 08/09/22 18:13 Freq: Status: Active Protocol: Document 08/14/22 13:49 [facility] (Rec: 08/14/22 15:36 [id number] Manual Assessments Soft Tissue Assessment Soft Tissue Mobility Assessment tightness B glutes, R>L QL, B paraspinals PT-OP-G Mobility & Gait Start: 08/09/22 18:13 Freq: Status: Active Protocol: Document 08/14/22 13:49 [facility] (Rec: 08/14/22 15:36 [id number] OP Gait Assessment Comments Gait Comments Dec push off , dec RLE stance time, REaches fwd w/RLE , tries to keep pelvis rigid PT-OP-J Posture/Palpation/Skin Start: 08/09/22 18:13 Freq: Status: Active Protocol: Document 10/03/22 09:49 [facility] (Rec: 10/03/22 10:38 [facility] [id number]) Posture Evaluation [facility] Postural Classification System Vertebral Compression Test 1 Lumbar Protective Mechanism Left AP 1 Lumbar Protective Mechanism Right AP 1 Lumbar Protective Mechanism Left PA 2 Lumbar Protective Mechanism Right PA 2 PT-OP-K Range of Motion Start: 08/09/22 18:13 Freq: Status: Active Protocol: Document 08/14/22 13:49 [facility] (Rec: 08/14/22 15:36 [facility] [id number]) Lumbar Spine Range of Motion Lumbar Spine Active Percentage Flexion 5 Extension 40 Rotation Left 40 Rotation Right 10 Lateral Flexion Left 40 Lateral Flexion Right 20 Comments ipsi pain w/SB, pain w/flex & ext, more HS use w/flex fwd, limited spine motion; pain in R side w/rot B PT-OP-L Special Tests Start: 08/09/22 18:13 Freq: Status: Active Protocol: Document 08/14/22 13:49 [facility] (Rec: 08/14/22 15:36 [facility] [id number]) Special Tests Lumbar Spine Special Tests Straight Leg Raise Test Results neg mild HS tightness Slump Test Results neg B PT-OP-M Strength Start: 08/09/22 18:13 Freq: Status: Active Protocol: Document 10/03/22 09:49 [facility] (Rec: 10/03/22 10:38 [facility] [id number]) Hip Strength Hip Manual Muscle Testing Right Flexion (L2) 4 Good Extension (S1) 4- Good- Abduction 4+ Good+ Adduction 4 Good External Rotation 4 Good Internal Rotation 4 Good Left Flexion (L2) 4- Good- Extension (S1) 4- Good- Abduction 4+ Good+ Adduction 4+ Good+ External Rotation 4 Good Internal Rotation 4 Good Knee Strength Knee Manual Muscle Testing Right Flexion (S2) 5 Normal Extension (L3) 5 Normal Left Flexion (S2) 5 Normal Extension (L3) 5 Normal Ankle/Foot Strength Ankle and Foot Manual Muscle Testing Right Dorsiflexion (L4) 5 Normal Plantarflexion (S1) 5 Normal Comments 20 heel raises Left Dorsiflexion (L4) 5 Normal Plantarflexion (S1) 5 Normal Comments 20 heel raises PT-OP-Q Treatments Start: 08/09/22 18:13 Freq: Status: Active Protocol: Document 10/29/22 13:04 [facility] (Rec: 10/29/22 13:47 [facility] [id number]) Therapeutic Exercises Supine Exercises isometric Supine Exercise Name SL press isometric Side bilateral Reps/Minutes 20 sec ea Comments cues DF Sidelying Exercises open book Side bilateral Reps/Minutes 6 Comments comfortable range Standing Exercises paloff press Standing Exercise Name w/overhead press up Side bilateral Equipment Used lvl 1 2 bands Reps/Minutes 12 ea Therapeutic Activity Therapeutic Activity hip hinge Comments 1.s eated w/yard stick on backx10 2. standing w/yard stick on back x2x10 posture Comments 1. standing posture training using pictures and VCT to show stability x6 min Manual Therapy Treatment Soft Tissue Mobilization lumbar Body Location L>R ES thoracolumar Mobilization Type Rolling,Strumming Intensity/Depth Moderate Body Position Prone Joint Mobilizations ribs Comments med FM on R 8 thoracic Comments L UPA T9, 11 in flex FM L UPA T10 in ext FM PT-OP-R Modalities Start: 08/09/22 18:13 Freq: Status: Active Protocol: Document 10/29/22 13:04 [facility] (Rec: 10/29/22 13:47 [facility] [id number]) Hot Pack/Cold Pack Treatment Cold Pack Location LB Patient Position Hooklying Treatment Duration (minutes) 10 PT-OP-T Assessment and Plan Start: 08/09/22 18:13 Freq: Status: Active Protocol: Document 10/29/22 13:04 [facility] (Rec: 10/29/22 13:47 [facility] [id number]) Physical Therapy Assessment Goals posture Intermediate Goal (LTG) Pt will show improved postural alignment in order to dec pain w/sitting/standing for long periods by scoring at least 3/5 on VCT. 10/03-08/30 LTG Duration 11/05 strength Short Term Goal (STG) pt will be indep w/HEP STG Duration achieved and advancing as able Intermediate Goal (LTG) Pt will show improved strength w/MMT of at least 4+/5 in all direction and LPM at least 3/ 5 in all planes to show improved stability to allow pt to do typical daily activities. 10/03-improving LTG Duration 11/05 housework Intermediate Goal (LTG) Pt will be able to return to all typical housework w/o inc pain. 10/03-has started returning to more of her housework but did hire a cleaning lady. Avoiding vacuuming, sweeping; still feels exhausted with long day of cleaning. LTG Duration 11/06/22 activities Short Term Goal (STG) Pt will be able to returnt o full 16 block walks w/o inc pain greater than 2/10 10/03-10-12 blocks a day at 2/10 - avoiding hills twice a day STG Duration 09/24/22 Intermediate Goal (LTG) Pt will be able to squat to vegetable picker objects from floor w/o inc pain. 10/03-still difficult LTG Duration 11/06/22 LYUDMILA Impairment Short Term Goal (STG) Pt will improve LYUDMILA score to no greater than 8/50 to show impoved functional ability. 10/03- STG Duration 09/26 Intermediate Goal (LTG) Pt will improve LYUDMILA score to no greater than 3/50 to show impoved functional ability. LTG Duration 11/06 Assessment Summary Assessment Pt did well with exercises today bt does require alot fo cues for posture and neutral alignemnt. She improves w/reps though Physical Therapy Plan Frequency and Duration Duration of treatment (weeks) 12 Plan of Care Start Date 08/14/22 Plan of Care End Date 11/06/22 Next Visit Focus/Plan Next Note Type Treatment Note Next Visit Plan cont to work on hip stability, postural correction and core stab, strengthening; manual therapy as needed to dec pain
--- NOTE | 2022-11-01 10:33 | PT.OTN ---
Current Diagnoses Spondylosis without myelopathy or radiculopathy, site unspecified (11/01/22) Spinal stenosis, lumbar region without neurogenic claudication (11/01/22) Low back pain, unspecified (11/01/22) Difficulty in walking, not elsewhere classified (11/01/22) Abnormal posture (11/01/22) Weakness (11/01/22) Physical Therapy Treatment Note PT-OP-A Visit Information Start: 08/09/22 18:13 Freq: Status: Active Protocol: Document 11/01/22 09:45 [facility] (Rec: 11/01/22 10:31 [facility] [id number]) Out-Patient Physical Therapy Visit Information Visit Information Visit Type Treatment Note Visit Note 04/04 Visit Start Time 09:48 Visit Stop Time 10:28 Total Visit Minutes 40 Visit Number 17 Number of CUT IN STATION OPERATOR Visits 0 PT-OP-B Current Condition Start: 08/09/22 18:13 Freq: Status: Active Protocol: Document 08/14/22 13:49 [facility] (Rec: 08/14/22 15:36 [facility] [id number]) Current Condition History of Current Condition Onset Date 4 months Current Complaints LBP History of Current Condition Pt reports back pain that she tried PT [facility] for but it was feeling worse when she went. She has had back pain for about 4 months now. She saw a neurologist and was put on gabepentin and she takes it 2x /day and mm relaxant at night, which she is considering taking it during the day. She has beeen on meds since end of May and that has helped her sleep more. She had a TIA on Jun 01. it was after her 5th booster. She had face numbness , difficulty getting up and head SB to L. She has been having L groin fluttering/ pulsating that has gotten really annoying in the last week. It does it in all positions but sitting may be worst. It has periods where it starts. She gets shooting pain down legs from ant thighs into ant shins. It isn't constant but it is frequent. She walks 10-12 blocks daily but that is less than what she typically does around 16 blocks or so. In the last week , back pain has inc more. She went to a gathering last night and couldn't stay d/t discomfort in the chairs. Pt has hx of B TKA but they are pretty good. She was riding a bike this spring/summer and that helped a lot. Still slow w/down stairs. It is easier on her back when she keeps her RLE out in front of her and less painful on back. When 1st gets up, she limps a little. Prior Treatments and Tests MRI -see scanned into chart; PT at [facility] Future Testing and Treatments Planned neurosurgeon suggested possible injection if PT not helping-no scheduled out Treatment Goals Patient/Caregiver Goals Have less pain, get back to 16 block walks, be able to pick things up off the floor, be able do housekeeping PT-OP-C Subjective Start: 08/09/22 18:13 Freq: Status: Active Protocol: Document 11/01/22 09:45 [facility] (Rec: 11/01/22 10:31 [facility] [id number]) OP-PT Subjective Patient Comments Patient Comments Pt reports she thinks the hip hinging has helped. says he feels like her posutre is improving PT-OP-D Balance Start: 08/09/22 18:13 Freq: Status: Active Protocol: Document 08/14/22 13:49 [facility] (Rec: 08/14/22 15:36 [facility] [id number]) Balance Tests Single Limb Standing Single Limb- Right 7 sec w/lat lean Single Limb- Left 6 sec w/lat lean PT-OP-F Manual Assessment Start: 08/09/22 18:13 Freq: Status: Active Protocol: Document 08/14/22 13:49 [facility] (Rec: 08/14/22 15:36 [facility] [id number]) Manual Assessments Soft Tissue Assessment Soft Tissue Mobility Assessment tightness B glutes, R>L QL, B paraspinals PT-OP-G Mobility & Gait Start: 08/09/22 18:13 Freq: Status: Active Protocol: Document 08/14/22 13:49 [facility] (Rec: 08/14/22 15:36 [facility] [id number]) OP Gait Assessment Comments Gait Comments Dec push off , dec RLE stance time, REaches fwd w/RLE , tries to keep pelvis rigid PT-OP-J Posture/Palpation/Skin Start: 08/09/22 18:13 Freq: Status: Active Protocol: Document 10/03/22 09:49 [facility] (Rec: 10/03/22 10:38 [facility] [id number]) Posture Evaluation [facility] Postural Classification System Vertebral Compression Test 1 Lumbar Protective Mechanism Left AP 1 Lumbar Protective Mechanism Right AP 1 Lumbar Protective Mechanism Left PA 2 Lumbar Protective Mechanism Right PA 2 PT-OP-K Range of Motion Start: 08/09/22 18:13 Freq: Status: Active Protocol: Document 08/14/22 13:49 [facility] (Rec: 08/14/22 15:36 [facility] [id number]) Lumbar Spine Range of Motion Lumbar Spine Active Percentage Flexion 5 Extension 40 Rotation Left 40 Rotation Right 10 Lateral Flexion Left 40 Lateral Flexion Right 20 Comments ipsi pain w/SB, pain w/flex & ext, more HS use w/flex fwd, limited spine motion; pain in R side w/rot B PT-OP-L Special Tests Start: 08/09/22 18:13 Freq: Status: Active Protocol: Document 08/14/22 13:49 [facility] (Rec: 08/14/22 15:36 [facility] [id number]) Special Tests Lumbar Spine Special Tests Straight Leg Raise Test Results neg mild HS tightness Slump Test Results neg B PT-OP-M Strength Start: 08/09/22 18:13 Freq: Status: Active Protocol: Document 10/03/22 09:49 [facility] (Rec: 10/03/22 10:38 [facility] [id number]) Hip Strength Hip Manual Muscle Testing Right Flexion (L2) 4 Good Extension (S1) 4- Good- Abduction 4+ Good+ Adduction 4 Good External Rotation 4 Good Internal Rotation 4 Good Left Flexion (L2) 4- Good- Extension (S1) 4- Good- Abduction 4+ Good+ Adduction 4+ Good+ External Rotation 4 Good Internal Rotation 4 Good Knee Strength Knee Manual Muscle Testing Right Flexion (S2) 5 Normal Extension (L3) 5 Normal Left Flexion (S2) 5 Normal Extension (L3) 5 Normal Ankle/Foot Strength Ankle and Foot Manual Muscle Testing Right Dorsiflexion (L4) 5 Normal Plantarflexion (S1) 5 Normal Comments 20 heel raises Left Dorsiflexion (L4) 5 Normal Plantarflexion (S1) 5 Normal Comments 20 heel raises PT-OP-Q Treatments Start: 08/09/22 18:13 Freq: Status: Active Protocol: Document 11/01/22 09:45 [facility] (Rec: 11/01/22 10:31 [facility] [id number]) Therapeutic Exercises Supine Exercises isometric Supine Exercise Name SL press isometric Side bilateral Reps/Minutes 20 sec ea Comments cues DF Standing Exercises paloff press Standing Exercise Name w/overhead press up Side bilateral Equipment Used lvl 1 2 bands Reps/Minutes 12 ea Therapeutic Activity Therapeutic Activity hip hinge Comments 1. standing w/yard stick on back pt self held then PT held x15 ea 2. squats w/yard stick w/pt holding then PT holding x15 ea cueing for neck and use of ball for 2 reps to keep chin tuck posture Comments 1. standing posture training using EFT and LPM to show stability x8 min Manual Therapy Treatment Soft Tissue Mobilization lumbar Body Location R ES thoracolumar Mobilization Type Rolling,Strumming Intensity/Depth Moderate Body Position Prone Comments manual facilitation in post dep Joint Mobilizations lumbar Joint Gapping L5, L4, L2 FM innominate Joint AP R FM PT-OP-R Modalities Start: 08/09/22 18:13 Freq: Status: Active Protocol: Document 10/29/22 13:04 [facility] (Rec: 10/29/22 13:47 [facility] [id number]) Hot Pack/Cold Pack Treatment Cold Pack Location LB Patient Position Hooklying Treatment Duration (minutes) 10 PT-OP-T Assessment and Plan Start: 08/09/22 18:13 Freq: Status: Active Protocol: Document 11/01/22 09:45 [facility] (Rec: 11/01/22 10:31 [facility] [id number]) Physical Therapy Assessment Goals posture Group Home Goal (LTG) Pt will show improved postural alignment in order to dec pain w/sitting/standing for long periods by scoring at least 3/5 on VCT. 10/03-08/30 LTG Duration 11/05 strength Short Term Goal (STG) pt will be indep w/HEP STG Duration achieved and advancing as able Group Home Goal (LTG) Pt will show improved strength w/MMT of at least 4+/5 in all direction and LPM at least 3/ 5 in all planes to show improved stability to allow pt to do typical daily activities. 10/03-improving LTG Duration 11/05 housework Radiologist Physician Goal (LTG) Pt will be able to return to all typical housework w/o inc pain. 10/03-has started returning to more of her housework but did hire a cleaning lady. Avoiding vacuuming, sweeping; still feels exhausted with long day of cleaning. LTG Duration 11/06/22 activities Short Term Goal (STG) Pt will be able to returnt o full 16 block walks w/o inc pain greater than 2/10 10/03-10-12 blocks a day at 2/10 - avoiding hills twice a day STG Duration 09/24/22 Radiologist Physician Goal (LTG) Pt will be able to squat to picker tender objects from floor w/o inc pain. 10/03-still difficult LTG Duration 11/06/22 LYUDMILA Impairment Short Term Goal (STG) Pt will improve LYUDMILA score to no greater than 8/50 to show impoved functional ability. 10/03- STG Duration 09/26 Group Home Goal (LTG) Pt will improve LYUDMILA score to no greater than 3/50 to show impoved functional ability. LTG Duration 11/06 Assessment Summary Assessment Pt requierd a lot of cues with postural training but by end was more aware of her body and able to set up herself easier . Physical Therapy Plan Frequency and Duration Duration of treatment (weeks) 12 Plan of Care Start Date 08/14/22 Plan of Care End Date 11/06/22 Next Visit Focus/Plan Next Note Type Progress Note Next Visit Plan cont to work on hip stability, postural correction and core stab, strengthening; manual therapy as needed to dec pain
--- NOTE | 2022-11-05 10:06 | PT.OTN ---
Current Diagnoses Spondylosis without myelopathy or radiculopathy, site unspecified (11/05/22) Spinal stenosis, lumbar region without neurogenic claudication (11/05/22) Low back pain, unspecified (11/05/22) Difficulty in walking, not elsewhere classified (11/05/22) Abnormal posture (11/05/22) Weakness (11/05/22) Physical Therapy Treatment Note PT-OP-A Visit Information Start: 08/09/22 18:13 Freq: Status: Active Protocol: Document 11/05/22 08:58 [facility] (Rec: 11/05/22 10:06 [facility] [id number]) Out-Patient Physical Therapy Visit Information Visit Information Visit Type Progress Note Visit Note 09/04 Visit Start Time 09:00 Visit Stop Time 09:45 Total Visit Minutes 45 Visit Number 18 Number of ASIC VERIFICATION ENGINEER Visits 0 PT-OP-B Current Condition Start: 08/09/22 18:13 Freq: Status: Active Protocol: Document 08/14/22 13:49 [facility] (Rec: 08/14/22 15:36 [facility] [id number]) Current Condition History of Current Condition Onset Date 4 months Current Complaints LBP History of Current Condition Pt reports back pain that she tried PT [facility] for but it was feeling worse when she went. She has had back pain for about 4 months now. She saw a neurologist and was put on gabepentin and she takes it 2x /day and mm relaxant at night, which she is considering taking it during the day. She has beeen on meds since end of May and that has helped her sleep more. She had a TIA on Jun 01. it was after her 5th booster. She had face numbness , difficulty getting up and head SB to L. She has been having L groin fluttering/ pulsating that has gotten really annoying in the last week. It does it in all positions but sitting may be worst. It has periods where it starts. She gets shooting pain down legs from ant thighs into ant shins. It isn't constant but it is frequent. She walks 10-12 blocks daily but that is less than what she typically does around 16 blocks or so. In the last week , back pain has inc more. She went to a gathering last night and couldn't stay d/t discomfort in the chairs. Pt has hx of B TKA but they are pretty good. She was riding a bike this spring/summer and that helped a lot. Still slow w/down stairs. It is easier on her back when she keeps her RLE out in front of her and less painful on back. When 1st gets up, she limps a little. Prior Treatments and Tests MRI -see scanned into chart; PT at [facility] Future Testing and Treatments Planned neurosurgeon suggested possible injection if PT not helping-no scheduled out Treatment Goals Patient/Caregiver Goals Have less pain, get back to 16 block walks, be able to pick things up off the floor, be able do housekeeping PT-OP-C Subjective Start: 08/09/22 18:13 Freq: Status: Active Protocol: Document 11/05/22 08:58 [facility] (Rec: 11/05/22 10:06 [facility] [id number]) OP-PT Subjective Patient Comments Patient Comments Pt reports she is paying attention to her back and standing extended like cooking bothers her. She did think about her position when picking up her grandson and felt more stable. PT-OP-D Balance Start: 08/09/22 18:13 Freq: Status: Active Protocol: Document 08/14/22 13:49 [facility] (Rec: 08/14/22 15:36 [facility] [id number]) Balance Tests Single Limb Standing Single Limb- Right 7 sec w/lat lean Single Limb- Left 6 sec w/lat lean PT-OP-F Manual Assessment Start: 08/09/22 18:13 Freq: Status: Active Protocol: Document 08/14/22 13:49 [facility] (Rec: 08/14/22 15:36 [facility] [id number]) Manual Assessments Soft Tissue Assessment Soft Tissue Mobility Assessment tightness B glutes, R>L QL, B paraspinals PT-OP-G Mobility & Gait Start: 08/09/22 18:13 Freq: Status: Active Protocol: Document 08/14/22 13:49 [facility] (Rec: 08/14/22 15:36 [facility] [id number]) OP Gait Assessment Comments Gait Comments Dec push off , dec RLE stance time, REaches fwd w/RLE , tries to keep pelvis rigid PT-OP-J Posture/Palpation/Skin Start: 08/09/22 18:13 Freq: Status: Active Protocol: Document 11/05/22 08:58 [facility] (Rec: 11/05/22 10:06 [facility] [id number]) Posture Evaluation [facility] Postural Classification System Vertebral Compression Test 1 Lumbar Protective Mechanism Left AP 3 Lumbar Protective Mechanism Right AP 2 Lumbar Protective Mechanism Left PA 3 Lumbar Protective Mechanism Right PA 2 PT-OP-K Range of Motion Start: 08/09/22 18:13 Freq: Status: Active Protocol: Document 08/14/22 13:49 [facility] (Rec: 08/14/22 15:36 [facility] [id number]) Lumbar Spine Range of Motion Lumbar Spine Active Percentage Flexion 5 Extension 40 Rotation Left 40 Rotation Right 10 Lateral Flexion Left 40 Lateral Flexion Right 20 Comments ipsi pain w/SB, pain w/flex & ext, more HS use w/flex fwd, limited spine motion; pain in R side w/rot B PT-OP-L Special Tests Start: 08/09/22 18:13 Freq: Status: Active Protocol: Document 08/14/22 13:49 [facility] (Rec: 08/14/22 15:36 [facility] [id number]) Special Tests Lumbar Spine Special Tests Straight Leg Raise Test Results neg mild HS tightness Slump Test Results neg B PT-OP-M Strength Start: 08/09/22 18:13 Freq: Status: Active Protocol: Document 11/05/22 08:58 [facility] (Rec: 11/05/22 10:06 [facility] [id number]) Hip Strength Hip Manual Muscle Testing Right Flexion (L2) 5 Normal Extension (S1) 4 Good Abduction 5 Normal Adduction 5 Normal External Rotation 4 Good Internal Rotation 5 Normal Left Flexion (L2) 5 Normal Extension (S1) 4 Good Abduction 5 Normal Adduction 5 Normal External Rotation 4 Good Internal Rotation 5 Normal Knee Strength Knee Manual Muscle Testing Right Flexion (S2) 5 Normal Extension (L3) 5 Normal Left Flexion (S2) 5 Normal Extension (L3) 5 Normal Ankle/Foot Strength Ankle and Foot Manual Muscle Testing Right Dorsiflexion (L4) 5 Normal Plantarflexion (S1) 5 Normal Comments 20 heel raises Left Dorsiflexion (L4) 5 Normal Plantarflexion (S1) 5 Normal Comments 20 heel raises PT-OP-Q Treatments Start: 08/09/22 18:13 Freq: Status: Active Protocol: Document 11/05/22 08:58 [facility] (Rec: 11/05/22 10:06 [facility] [id number]) Therapeutic Exercises Prone Exercises hip ext Prone Exercise Name TKE to hip ext Side bilateral Reps/Minutes 10 Comments max cues & inc time to do facilitation in range Therapeutic Activity Therapeutic Activity hip hinge Comments 1. standing w/yard stick on back pt self held x10 2. squats w/yard stick w/pt holding then PT holding x10 ea cueing for neck posture Comments 1. standing posture trainingx7 min Manual Therapy Treatment Soft Tissue Mobilization hip flexor Body Location R Mobilization Type Sustained Pressure Body Position Supine Comments w/heel slides thigh Body Location R add & ITB & TFL & HS w/ circumfrential technique Mobilization Type Rolling,Strumming Intensity/Depth Moderate Comments w/IR/ER Joint Mobilizations hip Joint on axis IR FM in supine R PT-OP-R Modalities Start: 08/09/22 18:13 Freq: Status: Active Protocol: Document 10/29/22 13:04 [facility] (Rec: 10/29/22 13:47 [facility] [id number]) Hot Pack/Cold Pack Treatment Cold Pack Location LB Patient Position Hooklying Treatment Duration (minutes) 10 PT-OP-T Assessment and Plan Start: 08/09/22 18:13 Freq: Status: Active Protocol: Document 11/05/22 08:58 [facility] (Rec: 11/05/22 10:06 [facility] [id number]) Physical Therapy Assessment Goals posture Fpc Goal (LTG) Pt will show improved postural alignment in order to dec pain w/sitting/standing for long periods by scoring at least 3/5 on VCT. 10/03-1/5 11/05-improves to 4/5 but requires cues LTG Duration 12/05 strength Short Term Goal (STG) pt will be indep w/HEP STG Duration achieved and advancing as able Fpc Goal (LTG) Pt will show improved strength w/MMT of at least 4+/5 in all direction and LPM at least 3/ 5 in all planes to show improved stability to allow pt to do typical daily activities. 10/03-improving 11/05-cont improvement LTG Duration 12/05 housework Elevator Repairer Goal (LTG) Pt will be able to return to all typical housework w/o inc pain. 10/03-has started returning to more of her housework but did hire a cleaning lady. Avoiding vacuuming, sweeping; still feels exhausted with long day of cleaning. 11/05-notes standing for cooking long periods still difficult but watching her body more during chores is helping. LTG Duration 12/10 activities Short Term Goal (STG) Pt will be able to returnt o full 16 block walks w/o inc pain greater than 2/10 10/03-10-12 blocks a day at /10 - avoiding hills twice a day 11/05-gradually inc back to closer to full walk STG Duration 11/17/22 Fpc Goal (LTG) Pt will be able to squat to car pick up driver objects from floor w/o inc pain. 10/03-still difficult 11/05-much improved , doing slowly and thinking about it LTG Duration 12/10 LYUDMILA Impairment Short Term Goal (STG) Pt will improve LYUDMILA score to no greater than 8/50 to show impoved functional ability. 10/03- 11/05-n/t STG Duration 11/12 Fpc Goal (LTG) Pt will improve LYUDMILA score to no greater than 3/50 to show impoved functional ability. LTG Duration 12/10 Assessment Summary Assessment Pt is reporting subjectively much less pain overall and is workingo n lifting and her mechanics along w/posture. She still has difficulty with standing long periods but is improving but does require ceus still w/postural set up. Cont PT to work on corefirst strategies along w/postural sability and automatic core engagment. Physical Therapy Plan Frequency and Duration Frequency of Treatment 1-2x/wk Duration of treatment (weeks) 5 Plan of Care Start Date 11/05/22 Plan of Care End Date 12/10/22 Therapeutic Interventions Therapeutic Interventions Aquatic Therapy,Balance Training,Gait Training,Home Exercise Program,Joint Mobilizations,Manual Therapy, Neuromuscular Re-education, Orthotic/Prosthetic Management ,Patient/Caregiver Education, Self-Care/Home Management,Soft Tissue Mobilization,Taping, Therapeutic Activities, Therapeutic Exercises Modalities Cold Pack/Ice Massage,Electric Stimulation,Hot Packs, Traction- Mechanical, Ultrasound Next Visit Focus/Plan Next Note Type Treatment Note Next Visit Plan cont to work on hip stability, postural correction and core stab, strengthening; manual therapy as needed to dec pain
--- NOTE | 2022-11-05 10:06 | PT.OPPOC ---
Physical, Occupational & Speech Therapy At [facility] Current Diagnoses Spondylosis without myelopathy or radiculopathy, site unspecified (11/05/22) Spinal stenosis, lumbar region without neurogenic claudication (11/05/22) Low back pain, unspecified (11/05/22) Difficulty in walking, not elsewhere classified (11/05/22) Abnormal posture (11/05/22) Weakness (11/05/22) Visit Care Team Role Provider Type MARIBEL Saavedra Attending Provider Advanced Canary Breeder Family Provider Primary Care Provider Referring Provider Specialty: [facility] Practice Address: [address] [place] [address], [facility] Email: [email or web address] Plan Of Care PT-OP-T Assessment and Plan Start: 08/09/22 18:13 Freq: Status: Active Protocol: Document 11/05/22 08:58 [facility] (Rec: 11/05/22 10:06 [facility] [id number]) Physical Therapy Assessment Goals posture Snf Goal (LTG) Pt will show improved postural alignment in order to dec pain w/sitting/standing for long periods by scoring at least 3/5 on VCT. 10/03-1/5 11/05-improves to 4/5 but requires cues LTG Duration 12/05 strength Short Term Goal (STG) pt will be indep w/HEP STG Duration achieved and advancing as able Extractor Operator Solvent Process Goal (LTG) Pt will show improved strength w/MMT of at least 4+/5 in all direction and LPM at least 3/ 5 in all planes to show improved stability to allow pt to do typical daily activities. 10/03-improving 11/05-cont improvement LTG Duration 12/05 housework Extractor Operator Solvent Process Goal (LTG) Pt will be able to return to all typical housework w/o inc pain. 10/03-has started returning to more of her housework but did hire a cleaning lady. Avoiding vacuuming, sweeping; still feels exhausted with long day of cleaning. 11/05-notes standing for cooking long periods still difficult but watching her body more during chores is helping. LTG Duration 12/10 activities Short Term Goal (STG) Pt will be able to returnt o full 16 block walks w/o inc pain greater than 2/10 10/03-10-12 blocks a day at / - avoiding hills twice a day 11/05-gradually inc back to closer to full walk STG Duration 11/17/22 Extractor Operator Solvent Process Goal (LTG) Pt will be able to squat to orange picker machine operator objects from floor w/o inc pain. 10/03-still difficult 11/05-much improved , doing slowly and thinking about it LTG Duration 12/10 LYUDMILA Impairment Short Term Goal (STG) Pt will improve LYUDMILA score to no greater than 8/50 to show impoved functional ability. 10/03- 11/05-n/t STG Duration 11/12 Snf Goal (LTG) Pt will improve LYUDMILA score to no greater than 3/50 to show impoved functional ability. LTG Duration 12/10 Assessment Summary Assessment Pt is reporting subjectively much less pain overall and is workingo n lifting and her mechanics along w/posture. She still has difficulty with standing long periods but is improving but does require ceus still w/postural set up. Cont PT to work on corefirst strategies along w/postural sability and automatic core engagment. Physical Therapy Plan Frequency and Duration Frequency of Treatment 1-2x/wk Duration of treatment (weeks) 5 Plan of Care Start Date 11/05/22 Plan of Care End Date 12/10/22 Therapeutic Interventions Therapeutic Interventions Aquatic Therapy,Balance Training,Gait Training,Home Exercise Program,Joint Mobilizations,Manual Therapy, Neuromuscular Re-education, Orthotic/Prosthetic Management ,Patient/Caregiver Education, Self-Care/Home Management,Soft Tissue Mobilization,Taping, Therapeutic Activities, Therapeutic Exercises Modalities Cold Pack/Ice Massage,Electric Stimulation,Hot Packs, Traction- Mechanical, Ultrasound Next Visit Focus/Plan Next Note Type Treatment Note Next Visit Plan cont to work on hip stability, postural correction and core stab, strengthening; manual therapy as needed to dec pain Plan of Care Dates Plan of Care Start Date 11/05/22 Plan of Care End Date 12/10/22 Electronically Signed by: Katlyn Trevino, PT 11/05/22 1006 If you are in agreement with this Plan of Care, please return a signed and dated copy. I have reviewed this Plan of Care and certify that the skilled therapy services above are required to meet the patient?s needs. Physician Signature Date Printed Name and Credentials Clinical Instructor Signature Printed Name and Credentials
--- NOTE | 2022-11-08 12:42 | PT.OTN ---
Current Diagnoses Spondylosis without myelopathy or radiculopathy, site unspecified (11/08/22) Spinal stenosis, lumbar region without neurogenic claudication (11/08/22) Low back pain, unspecified (11/08/22) Difficulty in walking, not elsewhere classified (11/08/22) Abnormal posture (11/08/22) Weakness (11/08/22) Physical Therapy Treatment Note PT-OP-A Visit Information Start: 08/09/22 18:13 Freq: Status: Active Protocol: Document 11/08/22 09:48 [facility] (Rec: 11/08/22 12:42 [facility] [id number]) Out-Patient Physical Therapy Visit Information Visit Information Visit Type Treatment Note Visit Note 10/05 Visit Start Time 09:48 Visit Stop Time 10:30 Total Visit Minutes 42 Visit Number 19 Number of STOCK HANGER Visits 0 PT-OP-B Current Condition Start: 08/09/22 18:13 Freq: Status: Active Protocol: Document 08/14/22 13:49 [facility] (Rec: 08/14/22 15:36 [facility] [id number]) Current Condition History of Current Condition Onset Date 4 months Current Complaints LBP History of Current Condition Pt reports back pain that she tried PT [facility] for but it was feeling worse when she went. She has had back pain for about 4 months now. She saw a neurologist and was put on gabepentin and she takes it 2x /day and mm relaxant at night, which she is considering taking it during the day. She has beeen on meds since end of May and that has helped her sleep more. She had a TIA on Jun 01. it was after her 5th booster. She had face numbness , difficulty getting up and head SB to L. She has been having L groin fluttering/ pulsating that has gotten really annoying in the last week. It does it in all positions but sitting may be worst. It has periods where it starts. She gets shooting pain down legs from ant thighs into ant shins. It isn't constant but it is frequent. She walks 10-12 blocks daily but that is less than what she typically does around 16 blocks or so. In the last week , back pain has inc more. She went to a gathering last night and couldn't stay d/t discomfort in the chairs. Pt has hx of B TKA but they are pretty good. She was riding a bike this spring/summer and that helped a lot. Still slow w/down stairs. It is easier on her back when she keeps her RLE out in front of her and less painful on back. When 1st gets up, she limps a little. Prior Treatments and Tests MRI -see scanned into chart; PT at [facility] Future Testing and Treatments Planned neurosurgeon suggested possible injection if PT not helping-no scheduled out Treatment Goals Patient/Caregiver Goals Have less pain, get back to 16 block walks, be able to pick things up off the floor, be able do housekeeping PT-OP-C Subjective Start: 08/09/22 18:13 Freq: Status: Active Protocol: Document 11/08/22 09:48 [facility] (Rec: 11/08/22 12:42 [id number]-PT Subjective Patient Comments Patient Comments Pt reprots some minor discomfort at TL junction She has been focusing on how she bends Patient Reported Progress Improving PT-OP-D Balance Start: 08/09/22 18:13 Freq: Status: Active Protocol: Document 08/14/22 13:49 [facility] (Rec: 08/14/22 15:36 [id number] Balance Tests Single Limb Standing Single Limb- Right 7 sec w/lat lean Single Limb- Left 6 sec w/lat lean PT-OP-F Manual Assessment Start: 08/09/22 18:13 Freq: Status: Active Protocol: Document 08/14/22 13:49 [facility] (Rec: 08/14/22 15:36 [facility] [id number]) Manual Assessments Soft Tissue Assessment Soft Tissue Mobility Assessment tightness B glutes, R>L QL, B paraspinals PT-OP-G Mobility & Gait Start: 08/09/22 18:13 Freq: Status: Active Protocol: Document 08/14/22 13:49 [facility] (Rec: 08/14/22 15:36 [id number] OP Gait Assessment Comments Gait Comments Dec push off , dec RLE stance time, REaches fwd w/RLE , tries to keep pelvis rigid PT-OP-J Posture/Palpation/Skin Start: 08/09/22 18:13 Freq: Status: Active Protocol: Document 11/05/22 08:58 [facility] (Rec: 11/05/22 10:06 [id number] Posture Evaluation [facility] Postural Classification System Vertebral Compression Test 1 Lumbar Protective Mechanism Left AP 3 Lumbar Protective Mechanism Right AP 2 Lumbar Protective Mechanism Left PA 3 Lumbar Protective Mechanism Right PA 2 PT-OP-K Range of Motion Start: 08/09/22 18:13 Freq: Status: Active Protocol: Document 08/14/22 13:49 [facility] (Rec: 08/14/22 15:36 [facility] [id number]) Lumbar Spine Range of Motion Lumbar Spine Active Percentage Flexion 5 Extension 40 Rotation Left 40 Rotation Right 10 Lateral Flexion Left 40 Lateral Flexion Right 20 Comments ipsi pain w/SB, pain w/flex & ext, more HS use w/flex fwd, limited spine motion; pain in R side w/rot B PT-OP-L Special Tests Start: 08/09/22 18:13 Freq: Status: Active Protocol: Document 08/14/22 13:49 [facility] (Rec: 08/14/22 15:36 [facility] [id number]) Special Tests Lumbar Spine Special Tests Straight Leg Raise Test Results neg mild HS tightness Slump Test Results neg B PT-OP-M Strength Start: 08/09/22 18:13 Freq: Status: Active Protocol: Document 11/05/22 08:58 [facility] (Rec: 11/05/22 10:06 [facility] [id number]) Hip Strength Hip Manual Muscle Testing Right Flexion (L2) 5 Normal Extension (S1) 4 Good Abduction 5 Normal Adduction 5 Normal External Rotation 4 Good Internal Rotation 5 Normal Left Flexion (L2) 5 Normal Extension (S1) 4 Good Abduction 5 Normal Adduction 5 Normal External Rotation 4 Good Internal Rotation 5 Normal Knee Strength Knee Manual Muscle Testing Right Flexion (S2) 5 Normal Extension (L3) 5 Normal Left Flexion (S2) 5 Normal Extension (L3) 5 Normal Ankle/Foot Strength Ankle and Foot Manual Muscle Testing Right Dorsiflexion (L4) 5 Normal Plantarflexion (S1) 5 Normal Comments 20 heel raises Left Dorsiflexion (L4) 5 Normal Plantarflexion (S1) 5 Normal Comments 20 heel raises PT-OP-Q Treatments Start: 08/09/22 18:13 Freq: Status: Active Protocol: Document 11/08/22 09:48 [facility] (Rec: 11/08/22 12:42 [facility] [id number]) Therapeutic Exercises Supine Exercises core Supine Exercise Name manual faciliation w/chop & w/ tonic spread Side bilateral Reps/Minutes 6 min Prone Exercises hip ext Prone Exercise Name TKE to hip ext Side bilateral Reps/Minutes 10 Comments min cues Sidelying Exercises clamshell Equipment Used L3 Reps/Minutes 12 Comments cues for alignment, core activation Therapeutic Activity Therapeutic Activity posture Comments 1. standing posture trainingx3 min Manual Therapy Treatment Soft Tissue Mobilization thigh Body Location R add & ITB & TFL & HS w/ circumfrential technique Mobilization Type Rolling,Strumming Intensity/Depth Moderate Comments w/IR/ER & active HS stretch Joint Mobilizations innominate Joint R IR FM hip Joint R inf FM PT-OP-R Modalities Start: 08/09/22 18:13 Freq: Status: Active Protocol: Document 10/29/22 13:04 [facility] (Rec: 10/29/22 13:47 [facility] [id number]) Hot Pack/Cold Pack Treatment Cold Pack Location LB Patient Position Hooklying Treatment Duration (minutes) 10 PT-OP-T Assessment and Plan Start: 08/09/22 18:13 Freq: Status: Active Protocol: Document 11/08/22 09:48 [facility] (Rec: 11/08/22 12:42 [facility] [id number]) Physical Therapy Assessment Goals posture Panelboard Operator Goal (LTG) Pt will show improved postural alignment in order to dec pain w/sitting/standing for long periods by scoring at least 3/5 on VCT. 10/03-1/5 11/05-improves to 4/5 but requires cues LTG Duration 12/05 strength Short Term Goal (STG) pt will be indep w/HEP STG Duration achieved and advancing as able Correction Goal (LTG) Pt will show improved strength w/MMT of at least 4+/5 in all direction and LPM at least 3/ 5 in all planes to show improved stability to allow pt to do typical daily activities. 10/03-improving 11/05-cont improvement LTG Duration 12/05 housework Correction Goal (LTG) Pt will be able to return to all typical housework w/o inc pain. 10/03-has started returning to more of her housework but did hire a cleaning lady. Avoiding vacuuming, sweeping; still feels exhausted with long day of cleaning. 11/05-notes standing for cooking long periods still difficult but watching her body more during chores is helping. LTG Duration 4/17 activities Short Term Goal (STG) Pt will be able to returnt o full 16 block walks w/o inc pain greater than 2/10 10/03-10-12 blocks a day at / - avoiding hills twice a day 11/05-gradually inc back to closer to full walk STG Duration 11/17/22 Correction Goal (LTG) Pt will be able to squat to curing pickling packer objects from floor w/o inc pain. 10/03-still difficult 11/05-much improved , doing slowly and thinking about it LTG Duration 12/10 LYUDMILA Impairment Short Term Goal (STG) Pt will improve LYUDMILA score to no greater than 8/50 to show impoved functional ability. 10/03- 11/05-n/t STG Duration 11/12 Correction Goal (LTG) Pt will improve LYUDMILA score to no greater than 3/50 to show impoved functional ability. LTG Duration 12/10 Assessment Summary Assessment Pt did better achieving good posture with less cues. She still ahs dec core faciliation overall but did improve today w/ability to get RLE in more neutral position w/manual Physical Therapy Plan Frequency and Duration Frequency of Treatment 1-2x/wk Duration of treatment (weeks) 5 Plan of Care Start Date 11/05/22 Plan of Care End Date 12/10/22 Next Visit Focus/Plan Next Note Type Treatment Note Next Visit Plan cont to work on hip stability, postural correction and core stab, strengthening; manual therapy as needed to dec pain
--- NOTE | 2022-11-12 13:02 | PT.OTN ---
Current Diagnoses Spondylosis without myelopathy or radiculopathy, site unspecified (11/12/22) Spinal stenosis, lumbar region without neurogenic claudication (11/12/22) Low back pain, unspecified (11/12/22) Difficulty in walking, not elsewhere classified (11/12/22) Abnormal posture (11/12/22) Weakness (11/12/22) Physical Therapy Treatment Note PT-OP-A Visit Information Start: 08/09/22 18:13 Freq: Status: Active Protocol: Document 11/12/22 09:52 [facility] (Rec: 11/12/22 13:01 [facility] [id number]) Out-Patient Physical Therapy Visit Information Visit Information Visit Type Treatment Note Visit Note 11/02 Visit Start Time 09:50 Visit Stop Time 10:30 Total Visit Minutes 40 Visit Number 20 Number of FREIGHT AIR BRAKE FITTER Visits 0 PT-OP-B Current Condition Start: 08/09/22 18:13 Freq: Status: Active Protocol: Document 08/14/22 13:49 [facility] (Rec: 08/14/22 15:36 [facility] [id number]) Current Condition History of Current Condition Onset Date 4 months Current Complaints LBP History of Current Condition Pt reports back pain that she tried PT [facility] for but it was feeling worse when she went. She has had back pain for about 4 months now. She saw a neurologist and was put on gabepentin and she takes it 2x /day and mm relaxant at night, which she is considering taking it during the day. She has beeen on meds since end of May and that has helped her sleep more. She had a TIA on Jun 01. it was after her 5th booster. She had face numbness , difficulty getting up and head SB to L. She has been having L groin fluttering/ pulsating that has gotten really annoying in the last week. It does it in all positions but sitting may be worst. It has periods where it starts. She gets shooting pain down legs from ant thighs into ant shins. It isn't constant but it is frequent. She walks 10-12 blocks daily but that is less than what she typically does around 16 blocks or so. In the last week , back pain has inc more. She went to a gathering last night and couldn't stay d/t discomfort in the chairs. Pt has hx of B TKA but they are pretty good. She was riding a bike this spring/summer and that helped a lot. Still slow w/down stairs. It is easier on her back when she keeps her RLE out in front of her and less painful on back. When 1st gets up, she limps a little. Prior Treatments and Tests MRI -see scanned into chart; PT at [facility] Future Testing and Treatments Planned neurosurgeon suggested possible injection if PT not helping-no scheduled out Treatment Goals Patient/Caregiver Goals Have less pain, get back to 16 block walks, be able to pick things up off the floor, be able do housekeeping PT-OP-C Subjective Start: 08/09/22 18:13 Freq: Status: Active Protocol: Document 11/12/22 09:52 [facility] (Rec: 11/12/22 13:01 [facility] [id number]) OP-PT Subjective Patient Comments Patient Comments Pt reprots a little soreness yesterday after standing cooking for a long time yesterday. Around TL region. PT-OP-D Balance Start: 08/09/22 18:13 Freq: Status: Active Protocol: Document 08/14/22 13:49 [facility] (Rec: 08/14/22 15:36 [facility] [id number]) Balance Tests Single Limb Standing Single Limb- Right 7 sec w/lat lean Single Limb- Left 6 sec w/lat lean PT-OP-F Manual Assessment Start: 08/09/22 18:13 Freq: Status: Active Protocol: Document 08/14/22 13:49 [facility] (Rec: 08/14/22 15:36 [facility] [id number]) Manual Assessments Soft Tissue Assessment Soft Tissue Mobility Assessment tightness B glutes, R>L QL, B paraspinals PT-OP-G Mobility & Gait Start: 08/09/22 18:13 Freq: Status: Active Protocol: Document 08/14/22 13:49 [facility] (Rec: 08/14/22 15:36 [facility] [id number]) OP Gait Assessment Comments Gait Comments Dec push off , dec RLE stance time, REaches fwd w/RLE , tries to keep pelvis rigid PT-OP-J Posture/Palpation/Skin Start: 08/09/22 18:13 Freq: Status: Active Protocol: Document 11/05/22 08:58 [facility] (Rec: 11/05/22 10:06 [facility] [id number]) Posture Evaluation [facility] Postural Classification System Vertebral Compression Test 1 Lumbar Protective Mechanism Left AP 3 Lumbar Protective Mechanism Right AP 2 Lumbar Protective Mechanism Left PA 3 Lumbar Protective Mechanism Right PA 2 PT-OP-K Range of Motion Start: 08/09/22 18:13 Freq: Status: Active Protocol: Document 08/14/22 13:49 [facility] (Rec: 08/14/22 15:36 [facility] [id number]) Lumbar Spine Range of Motion Lumbar Spine Active Percentage Flexion 5 Extension 40 Rotation Left 40 Rotation Right 10 Lateral Flexion Left 40 Lateral Flexion Right 20 Comments ipsi pain w/SB, pain w/flex & ext, more HS use w/flex fwd, limited spine motion; pain in R side w/rot B PT-OP-L Special Tests Start: 08/09/22 18:13 Freq: Status: Active Protocol: Document 08/14/22 13:49 [facility] (Rec: 08/14/22 15:36 [facility] [id number]) Special Tests Lumbar Spine Special Tests Straight Leg Raise Test Results neg mild HS tightness Slump Test Results neg B PT-OP-M Strength Start: 08/09/22 18:13 Freq: Status: Active Protocol: Document 11/05/22 08:58 [facility] (Rec: 11/05/22 10:06 [facility] [id number]) Hip Strength Hip Manual Muscle Testing Right Flexion (L2) 5 Normal Extension (S1) 4 Good Abduction 5 Normal Adduction 5 Normal External Rotation 4 Good Internal Rotation 5 Normal Left Flexion (L2) 5 Normal Extension (S1) 4 Good Abduction 5 Normal Adduction 5 Normal External Rotation 4 Good Internal Rotation 5 Normal Knee Strength Knee Manual Muscle Testing Right Flexion (S2) 5 Normal Extension (L3) 5 Normal Left Flexion (S2) 5 Normal Extension (L3) 5 Normal Ankle/Foot Strength Ankle and Foot Manual Muscle Testing Right Dorsiflexion (L4) 5 Normal Plantarflexion (S1) 5 Normal Comments 20 heel raises Left Dorsiflexion (L4) 5 Normal Plantarflexion (S1) 5 Normal Comments 20 heel raises PT-OP-Q Treatments Start: 08/09/22 18:13 Freq: Status: Active Protocol: Document 11/12/22 09:52 [facility] (Rec: 11/12/22 13:01 [facility] [id number]) Therapeutic Exercises Prone Exercises hip ext Prone Exercise Name TKE to hip ext Side bilateral Reps/Minutes 10 Comments min cues Standing Exercises wall posture Standing Exercise Name w/scap set Reps/Minutes 7 min total Comments cues for relaxed knees, core, should, chin tuck Therapeutic Activity Therapeutic Activity posture Comments 1. standing posture trainingx8 min-working on adding scap and neck set up Manual Therapy Treatment Soft Tissue Mobilization lumbar Body Location R & QL ES thoracolumar Mobilization Type Rolling,Strumming Intensity/Depth Moderate Body Position Sitting Comments w/SB Joint Mobilizations thoracic Comments transverse L T6-8 FM lumbar Body Position Sitting Comments L1 R flex FM; L4 and L5 ext FM innominate Comments R Ext s/l FM; AP in seated FM sacrum Joint R AP FM sitting ext PT-OP-R Modalities Start: 08/09/22 18:13 Freq: Status: Active Protocol: Document 10/29/22 13:04 [facility] (Rec: 10/29/22 13:47 [facility] [id number]) Hot Pack/Cold Pack Treatment Cold Pack Location LB Patient Position Hooklying Treatment Duration (minutes) 10 PT-OP-T Assessment and Plan Start: 08/09/22 18:13 Freq: Status: Active Protocol: Document 11/12/22 09:52 [facility] (Rec: 11/12/22 13:01 [facility] [id number]) Physical Therapy Assessment Goals posture Shelter Goal (LTG) Pt will show improved postural alignment in order to dec pain w/sitting/standing for long periods by scoring at least 3/5 on VCT. 10/03-1/5 11/05-improves to 4/5 but requires cues LTG Duration 12/05 strength Short Term Goal (STG) pt will be indep w/HEP STG Duration achieved and advancing as able Milker Machine Goal (LTG) Pt will show improved strength w/MMT of at least 4+/5 in all direction and LPM at least 3/ 5 in all planes to show improved stability to allow pt to do typical daily activities. 10/03-improving 11/05-cont improvement LTG Duration 12/05 housework Shelter Goal (LTG) Pt will be able to return to all typical housework w/o inc pain. 10/03-has started returning to more of her housework but did hire a cleaning lady. Avoiding vacuuming, sweeping; still feels exhausted with long day of cleaning. 11/05-notes standing for cooking long periods still difficult but watching her body more during chores is helping. LTG Duration 12/10 activities Short Term Goal (STG) Pt will be able to returnt o full 16 block walks w/o inc pain greater than 2/10 10/03-10-12 blocks a day at / - avoiding hills twice a day 11/05-gradually inc back to closer to full walk STG Duration 11/17/22 Shelter Goal (LTG) Pt will be able to squat to chicken picker objects from floor w/o inc pain. 10/03-still difficult 11/05-much improved , doing slowly and thinking about it LTG Duration 12/10 LYUDMILA Impairment Short Term Goal (STG) Pt will improve LYUDMILA score to no greater than 8/50 to show impoved functional ability. 10/03- 11/05-n/t STG Duration 11/12 Shelter Goal (LTG) Pt will improve LYUDMILA score to no greater than 3/50 to show impoved functional ability. LTG Duration 12/10 Assessment Summary Assessment Pt did well with posture but does have difficulty maintaining thoracolumbar alignment when setting scap and w/setting neck position. She does improve w/reps and cues. She did well with exercsies w/cues. Physical Therapy Plan Frequency and Duration Frequency of Treatment 1-2x/wk Duration of treatment (weeks) 5 Plan of Care Start Date 11/05/22 Plan of Care End Date 12/10/22 Next Visit Focus/Plan Next Note Type Treatment Note Next Visit Plan cont to work on postural correction & manual to dec pain
--- NOTE | 2022-11-15 11:17 | PT.OTN ---
Current Diagnoses Spondylosis without myelopathy or radiculopathy, site unspecified (11/15/22) Spinal stenosis, lumbar region without neurogenic claudication (11/15/22) Low back pain, unspecified (11/15/22) Difficulty in walking, not elsewhere classified (11/15/22) Abnormal posture (11/15/22) Weakness (11/15/22) Physical Therapy Treatment Note PT-OP-A Visit Information Start: 08/09/22 18:13 Freq: Status: Active Protocol: Document 11/15/22 09:31 [facility] (Rec: 11/15/22 10:36 [facility] [id number]) Out-Patient Physical Therapy Visit Information Visit Information Visit Type Treatment Note Visit Note 12/03 Visit Start Time 09:50 Visit Stop Time 10:30 Total Visit Minutes 40 Visit Number 21 Number of TON CYLINDER INSPECTOR Visits 0 PT-OP-B Current Condition Start: 08/09/22 18:13 Freq: Status: Active Protocol: Document 08/14/22 13:49 [facility] (Rec: 08/14/22 15:36 [facility] [id number]) Current Condition History of Current Condition Onset Date 4 months Current Complaints LBP History of Current Condition Pt reports back pain that she [facility] for but it was feeling worse when she went. She has had back pain for about 4 months now. She saw a neurologist and was put on gabepentin and she takes it 2x /day and mm relaxant at night, which she is considering taking it during the day. She has beeen on meds since end of May and that has helped her sleep more. She had a TIA on Jun 01. it was after her 5th booster. She had face numbness , difficulty getting up and head SB to L. She has been having L groin fluttering/ pulsating that has gotten really annoying in the last week. It does it in all positions but sitting may be worst. It has periods where it starts. She gets shooting pain down legs from ant thighs into ant shins. It isn't constant but it is frequent. She walks 10-12 blocks daily but that is less than what she typically does around 16 blocks or so. In the last week , back pain has inc more. She went to a gathering last night and couldn't stay d/t discomfort in the chairs. Pt has hx of B TKA but they are pretty good. She was riding a bike this spring/summer and that helped a lot. Still slow w/down stairs. It is easier on her back when she keeps her RLE out in front of her and less painful on back. When 1st gets up, she limps a little. Prior Treatments and Tests MRI -see scanned into chart; PT at [facility] Future Testing and Treatments Planned neurosurgeon suggested possible injection if PT not helping-no scheduled out Treatment Goals Patient/Caregiver Goals Have less pain, get back to 16 block walks, be able to pick things up off the floor, be able do housekeeping PT-OP-C Subjective Start: 08/09/22 18:13 Freq: Status: Active Protocol: Document 11/15/22 09:31 [facility] (Rec: 11/15/22 10:36 [facility] [id number]) OP-PT Subjective Patient Comments Patient Comments Pt reports she woke up and her knee was really sore in the AM yesterday. today it is hard to bear weight and she leans to the sides. Back is doing okay right now. PT-OP-D Balance Start: 08/09/22 18:13 Freq: Status: Active Protocol: Document 08/14/22 13:49 [facility] (Rec: 08/14/22 15:36 [facility] [id number]) Balance Tests Single Limb Standing Single Limb- Right 7 sec w/lat lean Single Limb- Left 6 sec w/lat lean PT-OP-F Manual Assessment Start: 08/09/22 18:13 Freq: Status: Active Protocol: Document 08/14/22 13:49 [facility] (Rec: 08/14/22 15:36 [facility] [id number]) Manual Assessments Soft Tissue Assessment Soft Tissue Mobility Assessment tightness B glutes, R>L QL, B paraspinals PT-OP-G Mobility & Gait Start: 08/09/22 18:13 Freq: Status: Active Protocol: Document 08/14/22 13:49 [facility] (Rec: 08/14/22 15:36 [facility] [id number]) OP Gait Assessment Comments Gait Comments Dec push off , dec RLE stance time, REaches fwd w/RLE , tries to keep pelvis rigid PT-OP-J Posture/Palpation/Skin Start: 08/09/22 18:13 Freq: Status: Active Protocol: Document 11/05/22 08:58 [facility] (Rec: 11/05/22 10:06 [facility] [id number]) Posture Evaluation Slade Postural Classification System Vertebral Compression Test 1 Lumbar Protective Mechanism Left AP 3 Lumbar Protective Mechanism Right AP 2 Lumbar Protective Mechanism Left PA 3 Lumbar Protective Mechanism Right PA 2 PT-OP-K Range of Motion Start: 08/09/22 18:13 Freq: Status: Active Protocol: Document 08/14/22 13:49 [facility] (Rec: 08/14/22 15:36 [facility] [id number]) Lumbar Spine Range of Motion Lumbar Spine Active Percentage Flexion 5 Extension 40 Rotation Left 40 Rotation Right 10 Lateral Flexion Left 40 Lateral Flexion Right 20 Comments ipsi pain w/SB, pain w/flex & ext, more HS use w/flex fwd, limited spine motion; pain in R side w/rot B PT-OP-L Special Tests Start: 08/09/22 18:13 Freq: Status: Active Protocol: Document 08/14/22 13:49 [facility] (Rec: 08/14/22 15:36 [facility] [id number]) Special Tests Lumbar Spine Special Tests Straight Leg Raise Test Results neg mild HS tightness Slump Test Results neg B PT-OP-M Strength Start: 08/09/22 18:13 Freq: Status: Active Protocol: Document 11/05/22 08:58 [facility] (Rec: 11/05/22 10:06 [facility] [id number]) Hip Strength Hip Manual Muscle Testing Right Flexion (L2) 5 Normal Extension (S1) 4 Good Abduction 5 Normal Adduction 5 Normal External Rotation 4 Good Internal Rotation 5 Normal Left Flexion (L2) 5 Normal Extension (S1) 4 Good Abduction 5 Normal Adduction 5 Normal External Rotation 4 Good Internal Rotation 5 Normal Knee Strength Knee Manual Muscle Testing Right Flexion (S2) 5 Normal Extension (L3) 5 Normal Left Flexion (S2) 5 Normal Extension (L3) 5 Normal Ankle/Foot Strength Ankle and Foot Manual Muscle Testing Right Dorsiflexion (L4) 5 Normal Plantarflexion (S1) 5 Normal Comments 20 heel raises Left Dorsiflexion (L4) 5 Normal Plantarflexion (S1) 5 Normal Comments 20 heel raises PT-OP-Q Treatments Start: 08/09/22 18:13 Freq: Status: Active Protocol: Document 11/15/22 09:31 [facility] (Rec: 11/15/22 10:36 [id number] Therapeutic Exercises Supine Exercises quad set Side left Reps/Minutes 5 sec x10 stretches Supine Exercise Name HS Side left Equipment Used gait belt Reps/Minutes 1 min TAbd Supine Exercise Name heel slides Side left Reps/Minutes 10 Manual Therapy Treatment Soft Tissue Mobilization thigh Body Location L ITB, HS, VL Mobilization Type Rolling,Strumming Intensity/Depth Moderate Comments w/active HS stretch and ER/IR Joint Mobilizations PF Joint L Direction sup, inf, med PT-OP-R Modalities Start: 08/09/22 18:13 Freq: Status: Active Protocol: Document 11/15/22 09:31 [facility] (Rec: 11/15/22 11:17 [facility] [id number]) Hot Pack/Cold Pack Treatment Cold Pack Location L knee Patient Position Hooklying Treatment Duration (minutes) 10 PT-OP-T Assessment and Plan Start: 08/09/22 18:13 Freq: Status: Active Protocol: Document 11/15/22 09:31 [facility] (Rec: 11/15/22 10:36 [facility] [id number]) Physical Therapy Assessment Goals posture Longterm Goal (LTG) Pt will show improved postural alignment in order to dec pain w/sitting/standing for long periods by scoring at least 3/5 on VCT. 10/03-1/5 11/05-improves to 4/5 but requires cues LTG Duration 12/05 strength Short Term Goal (STG) pt will be indep w/HEP STG Duration achieved and advancing as able Longterm Goal (LTG) Pt will show improved strength w/MMT of at least 4+/5 in all direction and LPM at least 3/ 5 in all planes to show improved stability to allow pt to do typical daily activities. 10/03-improving 11/05-cont improvement LTG Duration 12/05 housework Guest Relations Coordinator Goal (LTG) Pt will be able to return to all typical housework w/o inc pain. 10/03-has started returning to more of her housework but did hire a cleaning lady. Avoiding vacuuming, sweeping; still feels exhausted with long day of cleaning. 11/05-notes standing for cooking long periods still difficult but watching her body more during chores is helping. LTG Duration 12/10 activities Short Term Goal (STG) Pt will be able to returnt o full 16 block walks w/o inc pain greater than 2/10 10/03-10-12 blocks a day at / - avoiding hills twice a day 11/05-gradually inc back to closer to full walk STG Duration 11/17/22 Longterm Goal (LTG) Pt will be able to squat to pick and shovel worker objects from floor w/o inc pain. 10/03-still difficult 11/05-much improved , doing slowly and thinking about it LTG Duration 12/10 LYUDMILA Impairment Short Term Goal (STG) Pt will improve LYUDMILA score to no greater than 8/50 to show impoved functional ability. 10/03- 11/05-n/t STG Duration 11/12 Longterm Goal (LTG) Pt will improve LYUDMILA score to no greater than 3/50 to show impoved functional ability. LTG Duration 12/10 Assessment Summary Assessment Pt prsented SB R d/t inability to ext L knee and was amb w/ lat lean d/t dec wt bearing. Pt was able to extend knee after session and flex it further Physical Therapy Plan Frequency and Duration Frequency of Treatment 1-2x/wk Duration of treatment (weeks) 5 Plan of Care Start Date 11/05/22 Plan of Care End Date 12/10/22 Next Visit Focus/Plan Next Note Type Treatment Note Next Visit Plan cont to work on postural correction & manual to dec pain to prep for DC
--- NOTE | 2022-11-19 09:51 | PT.OTN ---
Current Diagnoses Spondylosis without myelopathy or radiculopathy, site unspecified (11/19/22) Spinal stenosis, lumbar region without neurogenic claudication (11/19/22) Low back pain, unspecified (11/19/22) Difficulty in walking, not elsewhere classified (11/19/22) Abnormal posture (11/19/22) Weakness (11/19/22) Physical Therapy Treatment Note PT-OP-A Visit Information Start: 08/09/22 18:13 Freq: Status: Active Protocol: Document 11/19/22 07:32 [facility] (Rec: 11/19/22 09:02 [facility] [id number]) Out-Patient Physical Therapy Visit Information Visit Information Visit Type Discharge Summary Visit Start Time 08:17 Visit Stop Time 08:57 Total Visit Minutes 40 Visit Number 22 Number of GENERAL MAINTENANCE TECHNICIAN Visits 0 PT-OP-B Current Condition Start: 08/09/22 18:13 Freq: Status: Active Protocol: Document 08/14/22 13:49 [facility] (Rec: 08/14/22 15:36 [facility] [id number]) Current Condition History of Current Condition Onset Date 4 months Current Complaints LBP History of Current Condition Pt reports back pain that she tried PT at [facility] for but it was feeling worse when she went. She has had back pain for about 4 months now. She saw a neurologist and was put on gabepentin and she takes it 2x /day and mm relaxant at night, which she is considering taking it during the day. She has beeen on meds since end of May and that has helped her sleep more. She had a TIA on Jun 01. it was after her 5th booster. She had face numbness , difficulty getting up and head SB to L. She has been having L groin fluttering/ pulsating that has gotten really annoying in the last week. It does it in all positions but sitting may be worst. It has periods where it starts. She gets shooting pain down legs from ant thighs into ant shins. It isn't constant but it is frequent. She walks 10-12 blocks daily but that is less than what she typically does around 16 blocks or so. In the last week , back pain has inc more. She went to a gathering last night and couldn't stay d/t discomfort in the chairs. Pt has hx of B TKA but they are pretty good. She was riding a bike this spring/summer and that helped a lot. Still slow w/down stairs. It is easier on her back when she keeps her RLE out in front of her and less painful on back. When 1st gets up, she limps a little. Prior Treatments and Tests MRI -see scanned into chart; PT at [facility] Future Testing and Treatments Planned neurosurgeon suggested possible injection if PT not helping-no scheduled out Treatment Goals Patient/Caregiver Goals Have less pain, get back to 16 block walks, be able to pick things up off the floor, be able do housekeeping PT-OP-C Subjective Start: 08/09/22 18:13 Freq: Status: Active Protocol: Document 11/19/22 07:32 [facility] (Rec: 11/19/22 09:02 [facility] [id number]) OP-PT Subjective Patient Comments Patient Comments pt repots knee wsa fine by yesterday and she rode her bike on the [place]. Back pain is night and day form when [facility] started Patient Questionnaires Oswestry Low Back Index Oswestry Score 7 PT-OP-D Balance Start: 08/09/22 18:13 Freq: Status: Active Protocol: Document 08/14/22 13:49 [facility] (Rec: 08/14/22 15:36 [facility] [id number]) Balance Tests Single Limb Standing Single Limb- Right 7 sec w/lat lean Single Limb- Left 6 sec w/lat lean PT-OP-F Manual Assessment Start: 08/09/22 18:13 Freq: Status: Active Protocol: Document 08/14/22 13:49 [facility] (Rec: 08/14/22 15:36 [facility] [id number]) Manual Assessments Soft Tissue Assessment Soft Tissue Mobility Assessment tightness B glutes, R>L QL, B paraspinals PT-OP-G Mobility & Gait Start: 08/09/22 18:13 Freq: Status: Active Protocol: Document 08/14/22 13:49 [facility] (Rec: 08/14/22 15:36 [facility] [id number]) OP Gait Assessment Comments Gait Comments Dec push off , dec RLE stance time, REaches fwd w/RLE , tries to keep pelvis rigid PT-OP-J Posture/Palpation/Skin Start: 08/09/22 18:13 Freq: Status: Active Protocol: Document 11/19/22 07:32 [facility] (Rec: 11/19/22 09:02 [facility] [id number]) Posture Evaluation Slade Postural Classification System Vertebral Compression Test 2 Lumbar Protective Mechanism Left AP 2 Lumbar Protective Mechanism Right AP 3 Lumbar Protective Mechanism Left PA 3 Lumbar Protective Mechanism Right PA 3 PT-OP-K Range of Motion Start: 08/09/22 18:13 Freq: Status: Active Protocol: Document 08/14/22 13:49 [facility] (Rec: 08/14/22 15:36 [facility] [id number]) Lumbar Spine Range of Motion Lumbar Spine Active Percentage Flexion 5 Extension 40 Rotation Left 40 Rotation Right 10 Lateral Flexion Left 40 Lateral Flexion Right 20 Comments ipsi pain w/SB, pain w/flex & ext, more HS use w/flex fwd, limited spine motion; pain in R side w/rot B PT-OP-L Special Tests Start: 08/09/22 18:13 Freq: Status: Active Protocol: Document 08/14/22 13:49 [facility] (Rec: 08/14/22 15:36 [facility] [id number]) Special Tests Lumbar Spine Special Tests Straight Leg Raise Test Results neg mild HS tightness Slump Test Results neg B PT-OP-M Strength Start: 08/09/22 18:13 Freq: Status: Active Protocol: Document 11/19/22 07:32 [facility] (Rec: 11/19/22 09:02 [facility] [id number]) Hip Strength Hip Manual Muscle Testing Right Flexion (L2) 5 Normal Extension (S1) 5 Normal Abduction 5 Normal Adduction 5 Normal External Rotation 4+ Good+ Internal Rotation 5 Normal Left Flexion (L2) 5 Normal Extension (S1) 5 Normal Abduction 5 Normal Adduction 5 Normal External Rotation 4+ Good+ Internal Rotation 5 Normal Knee Strength Knee Manual Muscle Testing Right Flexion (S2) 5 Normal Extension (L3) 5 Normal Left Flexion (S2) 5 Normal Extension (L3) 5 Normal Ankle/Foot Strength Ankle and Foot Manual Muscle Testing Right Dorsiflexion (L4) 5 Normal Plantarflexion (S1) 5 Normal Comments 20 heel raises Left Dorsiflexion (L4) 5 Normal Plantarflexion (S1) 5 Normal Comments 20 heel raises PT-OP-Q Treatments Start: 08/09/22 18:13 Freq: Status: Active Protocol: Document 11/19/22 07:32 [facility] (Rec: 11/19/22 09:02 [facility] [id number]) Therapeutic Exercises Supine Exercises isometric Supine Exercise Name SL press isometric Side bilateral Reps/Minutes 20 sec ea Comments cues DF LTR Supine Exercise Name cues Side bilateral Reps/Minutes 8 Comments cues for core activation & segmental control TAbd Supine Exercise Name 1. SLR 2. alt march Side bilateral Reps/Minutes 8 ea Comments min cues Prone Exercises hip ext Prone Exercise Name TKE to hip ext Side bilateral Reps/Minutes 5 ea Comments min cues Sidelying Exercises open book Side bilateral Reps/Minutes 5 Comments comfortable range abd Side bilateral Reps/Minutes 8 Comments cues for alignment, core activation clamshell Equipment Used L3 Reps/Minutes 5 Comments cues for alignment, core activation Standing Exercises wall posture Standing Exercise Name w/scap set Reps/Minutes 2 min Comments cues for relaxed knees, core, should, chin tuck Manual Therapy Treatment Soft Tissue Mobilization lumbar Body Location R & QL ES thoracolumar Mobilization Type Rolling,Strumming Intensity/Depth Moderate Body Position Sitting Comments w/SB Joint Mobilizations lumbar Body Position Sitting Comments gapping L1-2; L4-5; L5-S1 PT-OP-R Modalities Start: 08/09/22 18:13 Freq: Status: Active Protocol: Document 11/15/22 09:31 [facility] (Rec: 11/15/22 11:17 [facility] [id number]) Hot Pack/Cold Pack Treatment Cold Pack Location L knee Patient Position Hooklying Treatment Duration (minutes) 10 PT-OP-T Assessment and Plan Start: 08/09/22 18:13 Freq: Status: Active Protocol: Document 11/19/22 07:32 [facility] (Rec: 11/19/22 09:02 [facility] [id number]) Physical Therapy Assessment Goals posture Rn Ent Goal (LTG) Pt will show improved postural alignment in order to dec pain w/sitting/standing for long periods by scoring at least 3/5 on VCT. 10/03-/11/05-improves to 4/5 but requires cues LTG Duration can get 4/5 w/cues; at 2/5 when initially testd strength Short Term Goal (STG) pt will be indep w/HEP STG Duration achieved and advancing as able Assisted Goal (LTG) Pt will show improved strength w/MMT of at least 4+/5 in all direction and LPM at least 3/ 5 in all planes to show improved stability to allow pt to do typical daily activities. 10/03-improving 11/05-cont improvement LTG Duration mostly achieved cont to HEP housework Assisted Goal (LTG) Pt will be able to return to all typical housework w/o inc pain. 10/03-has started returning to more of her housework but did hire a cleaning lady. Avoiding vacuuming, sweeping; still feels exhausted with long day of cleaning. 11/05-notes standing for cooking long periods still difficult but watching her body more during chores is helping. 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 10/03-still difficult 11/05-much improved , doing slowly and thinking about it LTG Duration achieved LYUDMILA Impairment Short Term Goal (STG) Pt will improve LYUDMILA score to no greater than 8/50 to show impoved functional ability. 10/03- 11/05-n/t STG Duration achieved Assisted Goal (LTG) Pt will improve LYUDMILA score to no greater than 3/50 to show impoved functional ability. LTG Duration Assessment Summary Assessment Pt has met most goals at this time w/PT and is progressing well. She is able to do her typical daily acitivies w/o inc pain and no longer has to take meds to help w/sleeping. She has not inc her walks d/t being busy with other things. Pt indep w/HEP and is to cont w/HEP at this time. Physical Therapy Plan Discharge Physical Therapy Discharge Reasons Goals Met
== END 2022-11-20 11:28 | disposition home or self-care (01) ==
LOC: PHYS 08:15
PROVIDERS: Family Provider Nurse Practitioner; PCP Nurse Practitioner; Referring Provider Nurse Practitioner; Visit Provider Nurse Practitioner
DX: M54.50 Low back pain, unspecified (principal); M48.061 Spinal stenosis, lumbar region without neurogenic claudication; M47.819 Spondylosis without myelopathy or radiculopathy, site unspecified; R53.1 Weakness; R26.2 Difficulty in walking, not elsewhere classified; R29.3 Abnormal posture
CPT/HCPCS: 97110; 97112; 97140; 97162; 97530; 97535

== ENCOUNTER → 2023-02-18 | Outpatient (CLI) | payer MEDICARE, OTHER, SELFPAY ==
--- NOTE | 2023-02-18 10:20 | DI.RAD.S_ITS ---
Bone Density Report Name: ANNA COREAS Age: 67 Sex: Female Ethnicity: White Date of : 1955 Indication: postmenopausal; screening for osteoporosis; Referring Provider: RIMMA DC Study: Bone densitometry was performed. Exam Date: February 18, 2023 Accession number: [id number] Bone Density: Region BMD T-score Z-score Classification AP Spine(L1-L4) 1.179 1.2 3.1 Normal Femoral Neck (Left) 0.792 -0.5 1.1 Normal Total Hip (Left) 0.969 0.2 1.6 Normal Femoral Neck (Right) 0.819 -0.3 1.4 Normal Total Hip (Right) 0.972 0.2 1.6 Normal Total Hip Mean 0.970 0.2 1.6 Normal World Health Organization criteria for BMD impression classify patients as: Normal (T-score at or above -1.0), Osteopenia (T-score between -1.0 and -2.5), or Osteoporosis (T-score at or below -2.5). 10-year Fracture Risk: FRAX not reported because: All T-scores for Spine Total, Hip Total, Femoral Neck at or above -1.0 Previous Exams: -- Region Exam Age BMD T-score BMD Change BMD Change Date g/cm2 vs Baseline vs Previous -- AP Spine (L1-L4) 02/18/2023 67 1.179 1.2 -0.093 (-7.3%)# -0.093 (-7.3%)# 10/20/2020 65 1.272 2.0 Total Hip(Left) 02/18/2023 67 0.969 0.2 -0.005 (-0.5%)# -0.005 (-0.5%)# 10/20/2020 65 0.974 0.3 Total Hip(Right) 02/18/2023 67 0.972 0.2 0.020 (2.1%)# 0.020 (2.1%)# 10/20/2020 65 0.952 0.1 -- *Denotes significance at 95% confidence level, LSC for AP Spine = 0.022 g/cm2, LSC for Total Hip = 0.027 g/cm2 # Denotes dissimilar scan types or analysis methods Impression: The patient has normal bone mass. No significant bone loss was observed. Discussion: BONE DENSITY IS ABOVE THE MINIMUM DESIRABLE LEVEL AT ALL SKELETAL SITES TESTED. This patient's bone mineral density is above the minimum desirable level (T-score -1.0 or better) at all sites measured. The patient should follow a healthful lifestyle (good nutrition with adequate calcium and vitamin D, and appropriate weight-bearing exercise). Follow-Up: Consider repeating this study in 5 years or sooner if there is some new clinical indication. Reported by: VIPUL LARA M.D. on 02/18/2023 11:01:00 AM.
--- NOTE | 2023-02-18 10:20 | DI.MG.S_ITS ---
BILATERAL DIGITAL SCREENING MAMMOGRAM 3D/2D WITH CAD: 02/18/2023 CLINICAL: Routine screening. Comparison is made to exams dated: 01/29/2022 mammogram, 10/20/2020 mammogram, and 12/07/2017 mammogram - [facility]. There are scattered areas of fibroglandular density in both breasts (category b / 25%-50% glandular tissue). Current study was also evaluated with a Computer Aided Detection (CAD) system. No significant masses, calcifications, or other findings are seen in either breast. There has been no significant interval change. IMPRESSION: NEGATIVE There is no mammographic evidence of malignancy. A 1 year screening mammogram is recommended. Based on the Tyrer Cuzick model (a risk assessment model) the patient's lifetime risk is 6.0% and her 10 year risk is 3.2%. According to the ACR, ACS, and NCCN guidelines, an annual breast MRI exam along with mammogram is recommended if the patient's lifetime risk is 20% or greater. This exam was interpreted at Station ID: [id number]. NOTE: For mammograms, a report in lay terms will be sent to the patient. Approximately 15% of breast malignancies will not be visualized mammographically. In the management of a palpable breast mass, a negative mammogram must not discourage biopsy of a clinically suspicious lesion. Electronically Signed By: Ashish castillo/pasha:02/18/2023 12:18:51 letter sent: Normal Exam ACR BI-RADS Category 1: Negative [id number]
== END ==
LOC: RAD 10:20
PROVIDERS: Family Provider Nurse Practitioner; PCP Nurse Practitioner; Referring Provider Nurse Practitioner; Visit Provider Nurse Practitioner
DX: Z12.31 Encounter for screening mammogram for malignant neoplasm of breast; Z13.820 Encounter for screening for osteoporosis; Z78.0 Asymptomatic menopausal state
CPT/HCPCS: 77063; 77067; 77080

== ENCOUNTER → 2023-04-02 07:02 | Outpatient (CLI) | payer MEDICARE, OTHER, SELFPAY ==
[2023-04-01 09:38] VITALS: BMI 36.1
[2023-04-02 08:11] LABS: Add Manual Diff / Slide Review NO; Basophils Absolute Auto 100 /uL (0-100); Basophils Percent Auto 0.8 % (0-2); Eosinophils Absolute Auto 200 /uL (0-450); Eosinophils Percent Auto 3.3 % (2-4); Hematocrit 39.4 % (36-46); Hemoglobin 13.2 g/dL (12.0-16.0); Lymphocytes Absolute Auto 1100 /uL (1100-4500); Lymphocytes Percent Auto 16.5 % (25-40); Mean Corpuscular HGB Conc 33.6 % (30-36); Mean Corpuscular Hemoglobin 30.7 PG (26-34); Mean Corpuscular Volume 91.5 fL (80-100); Monocytes Absolute Auto 600 /uL (0-900); Monocytes Percent Auto 8.3 % (3-14); Neutrophils Absolute Auto 4900 /uL (1500-7000); Neutrophils Percent Auto 71.1 % (50-75); Platelet Count 226 X10^3/uL (150-400); Red Cell Distribution Width 13.2 % (11.6-14.8); White Blood Cell Count 6.9 X10^3/uL (4.5-11.0)
[2023-04-02 09:01] LABS: Alanine Aminotransferase 50 IU/L (<35); Albumin 4.2 g/dL (3.5-5.0); Alkaline Phosphatase 75 U/L (38-126); Aspartate Aminotransferase 33 IU/L (14-36); Bilirubin Total 0.5 mg/dL (0.2-1.3); Blood Urea Nitrogen 15 mg/dL (7-17); Calcium 9.3 mg/dL (8.4-10.2); Carbon Dioxide 29 mmol/L (22-32); Chloride 101 mmol/L (98-107); Cholesterol 205 mg/dL (140-199); Estimated Glomerular Filt Rate > 60 mL/min (>60); Globulin 2.1 g/dL (1.7-4.1); Glucose 126 mg/dL (80-110); HDL Cholesterol 61 mg/dL (40-60); HEMOLYSIS < 15 (0-50); LDL Cholesterol Calculated 110 mg/dL (<100); Potassium 4.2 mmol/L (3.4-5.1); Sodium 138 mmol/L (137-145); Total Protein 6.3 g/dL (6.3-8.2); Triglycerides 168 mg/dL (35-150)
[2023-04-02 09:12] LABS: Creatinine Urine Random 100.8 mg/dL
[2023-04-02 09:16] LABS: Microalbumi Creatinin Ratio Ur 18.8 ug/mg CR (<30); Microalbumin Urine Random 1.9 mg/dL (0-1.6)
[2023-04-02 09:22] LABS: Thyroid Stimulating Hormone 2.58 uIU/mL (0.47-4.68)
[2023-04-02 09:40] LABS: HIV 1 & 2 Ab/Ag 4th Gen Combo NEGATIVE (NEGATIVE); Hep C Virus Ab w/Reflex Quant NEGATIVE s/c (NEGATIVE)
[2023-04-03 13:21] LABS: Fecal Immunochemical Test Negative (Negative)
== END ==
PROVIDERS: Family Provider Nurse Practitioner; PCP Nurse Practitioner; Referring Provider Nurse Practitioner; Visit Provider Nurse Practitioner
DX: E03.9 Hypothyroidism, unspecified (principal); E78.5 Hyperlipidemia, unspecified; I10 Essential (primary) hypertension; I82.431 Acute embolism and thrombosis of right popliteal vein; Z79.899 Other long term (current) drug therapy; Z79.01 Long term (current) use of anticoagulants; Z11.4 Encounter for screening for human immunodeficiency virus [HIV]; Z12.11 Encounter for screening for malignant neoplasm of colon; Z11.59 Encounter for screening for other viral diseases
CPT/HCPCS: 36415; 80053; 80061; 82043; 82274; 82570; 84443; 85025; 86803; 87389

== ENCOUNTER → 2023-04-09 07:22 | Outpatient (CLI) | payer MEDICARE, OTHER, SELFPAY ==
[2023-04-01 09:38] VITALS: BMI 36.1
[2023-04-09 08:49] LABS: Glucose 123 mg/dL (80-110)
[2023-04-10 04:24] LABS: x Labcorp Estim. Avg Glu (eAG) 143 mg/dL (.); x Labcorp Hemoglobin A1c 6.6 % (4.8-5.6)
== END ==
PROVIDERS: Family Provider Nurse Practitioner; PCP Nurse Practitioner; Referring Provider Family Medicine; Visit Provider Family Medicine
DX: R73.09 Other abnormal glucose (principal)
CPT/HCPCS: 36415; 82947; 83036

== ENCOUNTER → 2023-06-17 16:10 | Outpatient (CLI) | payer MEDICARE, OTHER, SELFPAY ==
[2023-04-01 09:38] VITALS: BMI 36.1
--- NOTE | 2023-06-17 16:14 | DI.RAD.S_ITS ---
PROCEDURE: XR FOOT RT MIN 3V INDICATIONS: right foot pain TECHNIQUE: 3 views of the foot were acquired. COMPARISON: None. FINDINGS: Bones: No fractures or dislocations. No suspicious bony lesions. Metatarsus adductus and hallux valgus. Degenerative joint disease, most pronounced and moderate at the 1st metatarsophalangeal joint. Calcaneal spurring. Prominent osteophyte in the posterior calcaneus at the Achilles tendon insertion is consistent with enthesopathy. Soft tissues: No tibiotalar joint effusion. Achilles tendon appears normal. IMPRESSION: 1. Metatarsus adductus and hallux valgus. 2. 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 3. Achilles tendon enthesopathy at the calcaneal insertion. Dictated by: Fauzia Lopez M.D. on 06/17/2023 at 17:13 Approved by: Fauzia Lopez M.D. on 06/17/2023 at 17:15
== END ==
PROVIDERS: Family Provider Nurse Practitioner; PCP Nurse Practitioner; Referring Provider Family Medicine; Visit Provider Family Medicine
DX: M20.11 Hallux valgus (acquired), right foot (principal); M20.5X1 Other deformities of toe(s) (acquired), right foot; M19.071 Primary osteoarthritis, right ankle and foot; M77.31 Calcaneal spur, right foot; M79.671 Pain in right foot
CPT/HCPCS: 73630

== ENCOUNTER → 2023-07-17 07:32 | Outpatient (CLI) | payer MEDICARE, OTHER, SELFPAY ==
[2023-04-01 09:38] VITALS: BMI 36.1
[2023-07-17 09:34] LABS: Hemoglobin A1C% w Est Avg Glu 6.1 % (4.0-6.0)
[2023-07-17 09:47] LABS: Alanine Aminotransferase 55 IU/L (<35); Albumin 4.5 g/dL (3.5-5.0); Albumin Globulin Ratio 1.8 (1.0-2.8); Alkaline Phosphatase 67 U/L (38-126); Aspartate Aminotransferase 32 IU/L (14-36); BUN Creatinine Ratio 29.3 (6-22); Bilirubin Total 0.8 mg/dL (0.2-1.3); Blood Urea Nitrogen 17 mg/dL (7-17); Carbon Dioxide 31 mmol/L (22-32); Chloride 101 mmol/L (98-107); Estimated Glomerular Filt Rate > 60 mL/min (>60); Globulin 2.5 g/dL (1.7-4.1); Glucose 110 mg/dL (80-110); HEMOLYSIS < 15 (0-50); Potassium 4.5 mmol/L (3.4-5.1); Sodium 139 mmol/L (137-145)
== END ==
PROVIDERS: Family Provider Nurse Practitioner; PCP Nurse Practitioner; Referring Provider Nurse Practitioner; Visit Provider Nurse Practitioner
DX: E11.9 Type 2 diabetes mellitus without complications (principal)
CPT/HCPCS: 36415; 80053; 83036

== ENCOUNTER → 2023-08-03 08:34 | Outpatient (CLI) | payer MEDICARE, OTHER, SELFPAY ==
[2023-04-01 09:38] VITALS: BMI 36.1
[2023-08-03 09:31] LABS: Add Manual Diff / Slide Review NO; Basophils Absolute Auto 0 /uL (0-100); Basophils Percent Auto 0.8 % (0-2); Eosinophils Absolute Auto 200 /uL (0-450); Eosinophils Percent Auto 4.3 % (2-4); Hematocrit 40.6 % (36-46); Hemoglobin 13.7 g/dL (12.0-16.0); Lymphocytes Absolute Auto 900 /uL (1100-4500); Lymphocytes Percent Auto 17.8 % (25-40); Mean Corpuscular HGB Conc 33.8 % (30-36); Mean Corpuscular Hemoglobin 30.9 PG (26-34); Mean Corpuscular Volume 91.2 fL (80-100); Monocytes Absolute Auto 500 /uL (0-900); Monocytes Percent Auto 8.7 % (3-14); Neutrophils Absolute Auto 3600 /uL (1500-7000); Neutrophils Percent Auto 68.4 % (50-75); Platelet Count 229 X10^3/uL (150-400); Red Blood Cell Count 4.45 X10^6/uL (4.0-5.2); Red Cell Distribution Width 12.9 % (11.6-14.8); White Blood Cell Count 5.3 X10^3/uL (4.5-11.0)
[2023-08-03 09:34] LABS: Alanine Aminotransferase 54 IU/L (<35); Albumin 4.7 g/dL (3.5-5.0); Albumin Globulin Ratio 1.7 (1.0-2.8); Alkaline Phosphatase 62 U/L (38-126); Aspartate Aminotransferase 34 IU/L (14-36); BUN Creatinine Ratio 27.8 (6-22); Bilirubin Total 0.9 mg/dL (0.2-1.3); Blood Urea Nitrogen 15 mg/dL (7-17); Calcium 9.8 mg/dL (8.4-10.2); Carbon Dioxide 31 mmol/L (22-32); Chloride 101 mmol/L (98-107); Estimated Glomerular Filt Rate > 60 mL/min (>60); Globulin 2.8 g/dL (1.7-4.1); Glucose 112 mg/dL (80-110); HEMOLYSIS < 15 (0-50); Potassium 4.2 mmol/L (3.4-5.1); Sodium 140 mmol/L (137-145); Total Protein 7.5 g/dL (6.3-8.2)
== END ==
PROVIDERS: Family Provider Nurse Practitioner; PCP Nurse Practitioner; Referring Provider Internal Medicine; Visit Provider Internal Medicine
DX: I82.409 Acute embolism and thrombosis of unspecified deep veins of unspecified lower extremity (principal); B19.10 Unspecified viral hepatitis B without hepatic coma
CPT/HCPCS: 36415; 80053; 85025

== ENCOUNTER → 2023-10-03 16:36 | Outpatient (CLI) | payer MEDICARE, OTHER, SELFPAY ==
[2023-04-01 09:38] VITALS: BMI 36.1
[2023-10-03 17:46] LABS: Add Manual Diff / Slide Review NO; Basophils Absolute Auto 100 /uL (0-100); Basophils Percent Auto 0.8 % (0-2); Eosinophils Absolute Auto 300 /uL (0-450); Eosinophils Percent Auto 3.2 % (2-4); Hematocrit 39.6 % (36-46); Hemoglobin 13.5 g/dL (12.0-16.0); Lymphocytes Absolute Auto 1400 /uL (1100-4500); Lymphocytes Percent Auto 16.4 % (25-40); Mean Corpuscular Hemoglobin 31.2 PG (26-34); Mean Corpuscular Volume 91.7 fL (80-100); Monocytes Absolute Auto 600 /uL (0-900); Monocytes Percent Auto 7.5 % (3-14); Neutrophils Absolute Auto 6000 /uL (1500-7000); Neutrophils Percent Auto 72.1 % (50-75); Platelet Count 227 X10^3/uL (150-400); Red Blood Cell Count 4.31 X10^6/uL (4.0-5.2); Red Cell Distribution Width 12.7 % (11.6-14.8); White Blood Cell Count 8.3 X10^3/uL (4.5-11.0)
[2023-10-03 18:32] LABS: Alanine Aminotransferase 42 IU/L (<35); Albumin 4.7 g/dL (3.5-5.0); Albumin Globulin Ratio 1.7 (1.0-2.8); Alkaline Phosphatase 54 U/L (38-126); Aspartate Aminotransferase 29 IU/L (14-36); BUN Creatinine Ratio 35.3 (6-22); Bilirubin Total 0.7 mg/dL (0.2-1.3); Blood Urea Nitrogen 18 mg/dL (7-17); Calcium 9.6 mg/dL (8.4-10.2); Carbon Dioxide 28 mmol/L (22-32); Chloride 101 mmol/L (98-107); Estimated Glomerular Filt Rate > 60 mL/min (>60); Globulin 2.8 g/dL (1.7-4.1); Glucose 90 mg/dL (80-110); HEMOLYSIS 34 (0-50); Potassium 3.9 mmol/L (3.4-5.1); Sodium 140 mmol/L (137-145); Total Protein 7.5 g/dL (6.3-8.2)
== END ==
PROVIDERS: Nurse Practitioner Family; Family Provider Nurse Practitioner; PCP Nurse Practitioner; Referring Provider Nurse Practitioner; Visit Provider Nurse Practitioner
DX: R10.11 Right upper quadrant pain (principal)
CPT/HCPCS: 36415; 80053; 85025

== ENCOUNTER 2023-10-04 15:14 | Emergency (ER) | payer MEDICARE, OTHER, SELFPAY ==
[2023-04-01 09:38] VITALS: BMI 36.1
[2023-10-04 15:17] VITALS: BP 160/79; PULSE 91; RESP 16; TEMP 36.6; O2SAT 98; BMI 34.2
--- NOTE | 2023-10-04 15:28 | DI.US.S_ITS ---
PROCEDURE: US ABDOMEN LIMITED INDICATIONS: RUQ PAIN TECHNIQUE: Real-time scanning was performed of the abdominal and retroperitoneal organs, with image documentation. COMPARISON: None. FINDINGS: Liver: Liver is normal in size. Increased liver parenchymal echotexture is seen. No discrete hepatic lesion. Normal hepatopetal flow is seen in main portal vein. Gallbladder: There is no gallstone. No gallbladder wall thickening or pericholecystic fluid. No sonographic Odom's sign. Biliary ducts: Intrahepatic bile ducts are non-dilated. Extrahepatic bile duct caliber measures 4.3 mm. Normal is 6-7 mm or less in diameter, or 10 mm or less post-cholecystectomy. Pancreas: Visualized portions of the pancreas are sonographically normal. Kidneys: Right kidney measures 10.6 cm in length and 1.1 cm in renal cortical thickness. No hydronephrosis or nephrolithiasis. No solid masses. IVC: Intrahepatic inferior vena cava is patent. Miscellaneous: No free abdominal fluid. IMPRESSION: 1. Hepatic steatosis, no discrete hepatic lesion. 2. Normal appearing gallbladder. No biliary ductal dilatation. 3. Normal appearing visualized portion of pancreas and right kidney. Dictated by: Hugh Montes De Oca M.D. on 10/04/2023 at 17:20 Approved by: Hugh Montes De Oca M.D. on 10/04/2023 at 17:22
[2023-10-04 15:35] LABS: Add Manual Diff / Slide Review NO; Basophils Absolute Auto 100 /uL (0-100); Basophils Percent Auto 0.8 % (0-2); Eosinophils Absolute Auto 300 /uL (0-450); Eosinophils Percent Auto 3.3 % (2-4); Hematocrit 40.7 % (36-46); Hemoglobin 13.8 g/dL (12.0-16.0); Lymphocytes Absolute Auto 1000 /uL (1100-4500); Lymphocytes Percent Auto 11.2 % (25-40); Mean Corpuscular HGB Conc 33.9 % (30-36); Mean Corpuscular Hemoglobin 31.5 PG (26-34); Mean Corpuscular Volume 92.9 fL (80-100); Monocytes Absolute Auto 600 /uL (0-900); Monocytes Percent Auto 7.2 % (3-14); Neutrophils Absolute Auto 6600 /uL (1500-7000); Neutrophils Percent Auto 77.5 % (50-75); Platelet Count 221 X10^3/uL (150-400); Red Blood Cell Count 4.39 X10^6/uL (4.0-5.2); White Blood Cell Count 8.5 X10^3/uL (4.5-11.0)
[2023-10-04] MEDS: ONDANSETRON 4 MG/2 ML INJ IV (15:37)
[2023-10-04 15:41] VITALS: BP 150/73; PULSE 86; RESP 18; O2SAT 99
[2023-10-04 15:47] LABS: Alanine Aminotransferase 43 IU/L (<35); Albumin 4.9 g/dL (3.5-5.0); Albumin Globulin Ratio 1.5 (1.0-2.8); Alkaline Phosphatase 59 U/L (38-126); Aspartate Aminotransferase 28 IU/L (14-36); BUN Creatinine Ratio 23.3 (6-22); Bilirubin Total 0.8 mg/dL (0.2-1.3); Blood Urea Nitrogen 14 mg/dL (7-17); Calcium 9.9 mg/dL (8.4-10.2); Carbon Dioxide 30 mmol/L (22-32); Chloride 101 mmol/L (98-107); Estimated Glomerular Filt Rate > 60 mL/min (>60); Globulin 3.2 g/dL (1.7-4.1); Glucose 131 mg/dL (80-110); HEMOLYSIS < 15 (0-50); Lipase 56 U/L (23-300); Potassium 3.8 mmol/L (3.4-5.1); Sodium 141 mmol/L (137-145); Total Protein 8.1 g/dL (6.3-8.2)
[2023-10-04 16:00] VITALS: BP 137/65; PULSE 79; RESP 16; O2SAT 97
[2023-10-04 16:30] VITALS: BP 135/65; PULSE 81; RESP 16; O2SAT 97
--- NOTE | 2023-10-04 16:30 | ED_ITS ---
HPI - Pediatric GI General Chief Complaint: Abdominal Pain Stated Complaint: states gallbladder issues/Dr ref Time Seen by Provider: 10/04/23 15:25 Source: patient Mode of arrival: Ambulatory Related Data Home Medications Medication Instructions Recorded Confirmed rivaroxaban 10 mg tablet (Xarelto) 10 mg PO DAILY 07/20/20 10/03/23 gabapentin 300 mg capsule 300 mg PO BID 07/16/22 10/03/23 Previous Rx's Medication Instructions Recorded clobetasol 0.05 % topical ointment 1 applic topical DAILY #45 grams 10/30/22 ipratropium bromide 42 mcg (0.06 2 spray intranasal TID PRN allergy 11/23/22 %) nasal spray symptoms #15 mL betamethasone dipropionate 0.05 % 1 applic topical DAILY PRN itching 04/01/23 topical cream #45 grams blood-glucose meter #1 ea 04/11/23 levothyroxine 50 mcg tablet 50 mcg PO DAILY Hypothyrodisim #90 05/21/23 (Synthroid) tabs lancets #100 ea 05/29/23 atorvastatin 40 mg tablet 40 mg PO ONCE PM #90 tabs 07/29/23 lancets 28 gauge (TRUEplus Lancets) #200 ea 07/29/23 losartan 25 mg tablet 25 mg PO DAILY for blood pressure 07/29/23 #90 tabs blood sugar diagnostic (True #100 ea 07/30/23 Metrix Glucose Test Strip) Allergies Allergy/AdvReac Type Severity Reaction Status Date / Time clindamycin Allergy Mild RASH Verified 10/03/23 15:47 doxycycline Allergy Unknown RASH Verified 10/03/23 15:47 azithromycin AdvReac Unknown THROW UP Verified 10/03/23 15:47 CT Contrast/Dye Allergy Severe Difficulty Uncoded 10/03/23 15:47 Breathing Patient History Medical History Diabetes type 2, controlled Chronic anticoagulation Schatzki's ring of distal esophagus (~03/20/21) Enteritis Sensorineural hearing loss, bilateral Subungual hematoma of great toe DVT (deep venous thrombosis) (~2013) DVT of axillary vein, chronic left Lichen planus Obstructive sleep apnea of adult Obesity (BMI 30-39.9) Hyperlipidemia Irritable larynx syndrome Osteoarthritis of right knee Plantar warts Eczema Osteoarthritis Sleep apnea (~2015) Shoulder pain Hepatitis B (~1976) History of ovarian cyst Infertility Fibroids Abnormal Pap smear of cervix Gastro-esophageal reflux disease with esophagitis Hayfever (1966) Measles Mumps Rosacea (2008) Acne (1970) History of torn meniscus of left knee (2012) Retinal detachment, left (2010) Retinal detachment, right (2011) PCOS (polycystic ovarian syndrome) (1974) Hypothyroidism (2009) Postoperative pulmonary embolism (2013) Anaphylactic reaction Surgical History Anesthesia History of surgical removal of meniscus of knee (09/03/13) History of eye surgery (05/15/12) History of eye surgery (02/27/11) History of sinus surgery (1987) Status post surgical removal of neoplasm of skin (1957) Status post endometrial ablation (2005) History of knee replacement (05/13/14) Status post loop electrosurgical excision procedure (LEEP) of cervix (01/2006) Status post delivery (06/1981) Status post delivery (12/1984) History of tonsillectomy (1964) Family History Father Heart disease Mother Osteoporosis Stroke Celiac disease Glaucoma COPD (chronic obstructive pulmonary disease) Emphysema lung Sister Age: 64 Alcoholic Drug abuse Hepatitis C Son No problems noted. Son [id number] transgender person PCOS (polycystic ovarian syndrome) Social History household members: spouse Smoking Status: Never smoker alcohol intake: current Smoking Status: Never smoker alcohol intake frequency: holidays/special occasions only Substance Use Type: does not use Pediatric Exam Initial Vital Signs Initial Vital Signs: Vital Signs Temperature 97.9 F 10/04/23 15:17 Pulse Rate 91 H 10/04/23 15:17 Respiratory Rate 16 10/04/23 15:17 Blood Pressure 160/79 H 10/04/23 15:17 Pulse Oximetry 98 10/04/23 15:17 Oxygen Delivery Method Room Air 10/04/23 15:17 General Limitations: no limitations Course Orders Ordered: ED Orders 10/04/23 15:28 US abdomen limited Stat 10/04/23 15:30 CBC Auto Diff [Complete Blood Count AUTO DIFF] Stat CMP [Comprehensive Metabolic Panel] Stat Lipase Stat Discontinued Medications Ondansetron HCl (Ondansetron 4 Mg/2 Ml Inj) 4 mg IV NOW ONE Stop: 10/04/23 15:35 Last Admin: 10/04/23 15:37 Dose: 4 mg Documented By: JUAN Vital Signs Vital signs: Vital Signs - 8 hr 10/04/23 15:17 Temperature 97.9 F Pulse Rate 91 H Respiratory Rate 16 Blood Pressure 160/79 H Pulse Oximetry 98 Oxygen Delivery Method Room Air Medical Decision Making Lab Data 10/04/23 15:30 10/04/23 15:30 Labs: Lab Results 10/04/23 Range/Units 15:30 WBC 8.5 (4.5-11.0) X10^3/uL RBC 4.39 (4.0-5.2) X10^6/uL Hgb 13.8 (12.0-16.0) g/dL Hct 40.7 (36-46) % MCV 92.9 (80-100) fL MCH 31.5 (26-34) PG MCHC 33.9 (30-36) % RDW 13.0 (11.6-14.8) % Plt Count 221 (150-400) X10^3/uL Neut % (Auto) 77.5 H (50-75) % Lymph % (Auto) 11.2 L (25-40) % [place] % (Auto) 7.2 (3-14) % Eos % (Auto) 3.3 (2-4) % Baso % (Auto) 0.8 (0-2) % Neut # (Auto) 6600 (0580-1839) /uL Lymph # (Auto) 1000 L (6737-3569) /uL [place] # (Auto) 600 (0-900) /uL Eos # (Auto) 300 (0-450) /uL Baso # (Auto) 100 (0-100) /uL Sodium 141 (137-145) mmol/L Potassium 3.8 (3.4-5.1) mmol/L Chloride 101 (98-107) mmol/L Carbon Dioxide 30 (22-32) mmol/L BUN 14 (7-17) mg/dL Creatinine 0.60 (0.52-1.04) mg/dL Estimated GFR > 60 (>60) mL/min BUN/Creatinine Ratio 23.3 H (6-22) Glucose 131 H (80-110) mg/dL Calcium 9.9 (8.4-10.2) mg/dL Total Bilirubin 0.8 (0.2-1.3) mg/dL AST 28 (14-36) IU/L ALT 43 H (<35) IU/L Alkaline Phosphatase 59 (38-126) U/L Total Protein 8.1 (6.3-8.2) g/dL Albumin 4.9 (3.5-5.0) g/dL Globulin 3.2 (1.7-4.1) g/dL Albumin/Globulin Ratio 1.5 (1.0-2.8) Lipase 56 (23-300) U/L Discharge Plan Departure Prescriptions: No Action ipratropium bromide 42 mcg (0.06 %) spray,non-aerosol 2 spray intranasal TID PRN (Reason: allergy symptoms) Qty: 15 0RF Rx Instructions: administer into each nostril Xarelto 10 mg tablet 10 mg PO DAILY levothyroxine [Synthroid] 50 mcg tablet 50 mcg PO DAILY Qty: 90 3RF (DME) lancets Misc See Rx Instructions .Route Qty: 100 0RF Rx Instructions: Test blood glucose once daily (DME) lancets [TRUEplus Lancets] 28 gauge misc See Rx Instructions .Route Qty: 200 2RF Rx Instructions: As directed atorvastatin 40 mg tablet 40 mg PO ONCE PM Qty: 90 3RF losartan 25 mg tablet 25 mg PO DAILY Qty: 90 3RF (DME) True Metrix Glucose Test Strip Strip See Rx Instructions .Route Qty: 100 3RF Rx Instructions: Test blood glucose 2-4 times daily betamethasone dipropionate 0.05 % cream 1 applic topical DAILY PRN (Reason: itching) Qty: 45 3RF (DME) blood-glucose meter Kit See Rx Instructions .Route Qty: 1 0RF Rx Instructions: As directed clobetasol 0.05 % ointment 1 applic topical DAILY Qty: 45 3RF Rx Instructions: apply to affected area every other day gabapentin 300 mg capsule 300 mg PO BID Referrals: Daniela Greer ARNP [Primary Care Provider] -
--- NOTE | 2023-10-04 16:32 | ED.ABDPAIN ---
HPI - Abdominal Pain General Chief Complaint: Abdominal Pain Stated Complaint: states gallbladder issues/Dr ref Time Seen by Provider: 10/04/23 15:25 Source: patient Mode of arrival: Ambulatory History of Present Illness HPI narrative: 68-year-old female presents for several days of intermittent right upper quadrant abdominal pain with mild nausea. Patient states that she was seen by her primary care physician, who wanted her to get an upper quadrant ultrasound, however due to insurance issues that could not be scheduled until next week and her pain seems to be worsening. She is concerned that she may have a problem with gallbladder. Denies history of intra-abdominal surgery. Related Data Home Medications Medication Instructions Recorded Confirmed rivaroxaban 10 mg tablet (Xarelto) 10 mg PO DAILY 07/20/20 10/03/23 gabapentin 300 mg capsule 300 mg PO BID 07/16/22 10/03/23 Previous Rx's Medication Instructions Recorded clobetasol 0.05 % topical ointment 1 applic topical DAILY #45 grams 10/30/22 ipratropium bromide 42 mcg (0.06 2 spray intranasal TID PRN allergy 11/23/22 %) nasal spray symptoms #15 mL betamethasone dipropionate 0.05 % 1 applic topical DAILY PRN itching 04/01/23 topical cream #45 grams blood-glucose meter #1 ea 04/11/23 levothyroxine 50 mcg tablet 50 mcg PO DAILY Hypothyrodisim #90 05/21/23 (Synthroid) tabs lancets #100 ea 05/29/23 atorvastatin 40 mg tablet 40 mg PO ONCE PM #90 tabs 07/29/23 lancets 28 gauge (TRUEplus Lancets) #200 ea 07/29/23 losartan 25 mg tablet 25 mg PO DAILY for blood pressure 07/29/23 #90 tabs blood sugar diagnostic (True #100 ea 07/30/23 Metrix Glucose Test Strip) tramadol 50 mg tablet 50 mg PO Q8H PRN pain #14 tabs 10/04/23 Allergies Allergy/AdvReac Type Severity Reaction Status Date / Time clindamycin Allergy Mild RASH Verified 10/03/23 15:47 doxycycline Allergy Unknown RASH Verified 10/03/23 15:47 azithromycin AdvReac Unknown THROW UP Verified 10/03/23 15:47 CT Contrast/Dye Allergy Severe Difficulty Uncoded 10/03/23 15:47 Breathing Review of Systems Review of Systems Narrative: Negative except as noted above Patient History Medical History Diabetes type 2, controlled Chronic anticoagulation Schatzki's ring of distal esophagus (~03/20/21) Enteritis Sensorineural hearing loss, bilateral Subungual hematoma of great toe DVT (deep venous thrombosis) (~2013) DVT of axillary vein, chronic left Lichen planus Obstructive sleep apnea of adult Obesity (BMI 30-39.9) Hyperlipidemia Irritable larynx syndrome Osteoarthritis of right knee Plantar warts Eczema Osteoarthritis Sleep apnea (~2015) Shoulder pain Hepatitis B (~1976) History of ovarian cyst Infertility Fibroids Abnormal Pap smear of cervix Gastro-esophageal reflux disease with esophagitis Hayfever (1966) Measles Mumps Rosacea (2008) Acne (1969) History of torn meniscus of left knee (2012) Retinal detachment, left (2010) Retinal detachment, right (2011) PCOS (polycystic ovarian syndrome) (1974) Hypothyroidism (2009) Postoperative pulmonary embolism (2013) Anaphylactic reaction Surgical History Anesthesia History of surgical removal of meniscus of knee (09/03/13) History of eye surgery (05/15/12) History of eye surgery (02/27/11) History of sinus surgery (1987) Status post surgical removal of neoplasm of skin (1957) Status post endometrial ablation (2005) History of knee replacement (05/13/14) Status post loop electrosurgical excision procedure (LEEP) of cervix (01/2006) Status post delivery (06/1981) Status post delivery (12/1984) History of tonsillectomy (1964) Family History Father Heart disease Mother Osteoporosis Stroke Celiac disease Glaucoma COPD (chronic obstructive pulmonary disease) Emphysema lung Sister Age: 64 Alcoholic Drug abuse Hepatitis C Son No problems noted. Son [id number] transgender person PCOS (polycystic ovarian syndrome) Social History household members: spouse Smoking Status: Never smoker alcohol intake: current Smoking Status: Never smoker alcohol intake frequency: holidays/special occasions only Substance Use Type: does not use Exam Initial Vital Signs Initial Vital Signs: Vital Signs Temperature 97.9 F 02/09/24 15:17 Pulse Rate 91 H 10/04/23 15:17 Respiratory Rate 16 10/04/23 15:17 Blood Pressure 160/79 H 10/04/23 15:17 Pulse Oximetry 98 10/04/23 15:17 Oxygen Delivery Method Room Air 10/04/23 15:17 Const: Awake, alert, no acute distress, nontoxic appearing Cardiac: regular rate, regular rhythm RESP: unlabored, clear bilaterally, no wheezing GI: Soft, mild right upper quadrant tenderness to deep palpation, negative Odom's sign, no rebound or guarding Skin: Warm, Dry, intact, no rashes Neuro: AO x3, CN II-XII grossly intact, moves all extremities Psych: affect normal, mood normal, not suicidal, not homicidal Course Orders Ordered: Discontinued Medications Ondansetron HCl (Ondansetron 4 Mg/2 Ml Inj) 4 mg IV NOW ONE Stop: 10/04/23 15:35 Last Admin: 10/04/23 15:37 Dose: 4 mg Documented By: OW Vital Signs Vital signs: Vital Signs - 8 hr 10/04/23 15:17 10/04/23 15:41 10/04/23 16:00 Temperature 97.9 F Pulse Rate 91 H 86 79 Respiratory Rate 16 18 16 Blood Pressure 160/79 H 150/73 H 137/65 Pulse Oximetry 98 99 97 Oxygen Delivery Method Room Air Room Air Room Air 10/04/23 16:30 10/04/23 17:00 Temperature Pulse Rate 81 78 Respiratory Rate 16 16 Blood Pressure 135/65 142/67 H Pulse Oximetry 97 98 Oxygen Delivery Method Room Air Room Air MDM - Abdominal Pain Differential Diagnosis Differential diagnosis: Likely abdominal pain, acute appendicitis and calculus of kidney Lab Data 10/04/23 15:30 10/04/23 15:30 Labs: Lab Results 10/04/23 Range/Units 15:30 WBC 8.5 (4.5-11.0) X10^3/uL RBC 4.39 (4.0-5.2) X10^6/uL Hgb 13.8 (12.0-16.0) g/dL Hct 40.7 (36-46) % MCV 92.9 (80-100) fL MCH 31.5 (26-34) PG MCHC 33.9 (30-36) % RDW 13.0 (11.6-14.8) % Plt Count 221 (150-400) X10^3/uL Neut % (Auto) 77.5 H (50-75) % Lymph % (Auto) 11.2 L (25-40) % [place] % (Auto) 7.2 (3-14) % Eos % (Auto) 3.3 (2-4) % Baso % (Auto) 0.8 (0-2) % Neut # (Auto) 6600 (6282-5548) /uL Lymph # (Auto) 1000 L (0433-6683) /uL [place] # (Auto) 600 (0-900) /uL Eos # (Auto) 300 (0-450) /uL Baso # (Auto) 100 (0-100) /uL Sodium 141 (137-145) mmol/L Potassium 3.8 (3.4-5.1) mmol/L Chloride 101 (98-107) mmol/L Carbon Dioxide 30 (22-32) mmol/L BUN 14 (7-17) mg/dL Creatinine 0.60 (0.52-1.04) mg/dL Estimated GFR > 60 (>60) mL/min BUN/Creatinine Ratio 23.3 H (6-22) Glucose 131 H (80-110) mg/dL Calcium 9.9 (8.4-10.2) mg/dL Total Bilirubin 0.8 (0.2-1.3) mg/dL AST 28 (14-36) IU/L ALT 43 H (<35) IU/L Alkaline Phosphatase 59 (38-126) U/L Total Protein 8.1 (6.3-8.2) g/dL Albumin 4.9 (3.5-5.0) g/dL Globulin 3.2 (1.7-4.1) g/dL Albumin/Globulin Ratio 1.5 (1.0-2.8) Lipase 56 (23-300) U/L [facility] Narrative Medical decision making narrative: Intermittent right upper quadrant abdominal pain. Abdomen is soft, she does have tenderness to deep palpation in the upper quadrant, however negative Odom's sign. Plan to order nausea medications, blood work, ultrasound imaging of the right upper quadrant. Laboratory work is reviewed, no leukocytosis, no elevation in bilirubin or liver enzymes. Ultrasound of the upper quadrant shows hepatic steatosis without any concerning biliary findings. We will order CT of the abdomen and pelvis to assess for any other possible causes of right upper quadrant abdominal pain. CT of the abdomen and pelvis shows no findings that would explain patient's right upper quadrant pain. Patient reassessed, resting comfortably in bed, no acute distress. Repeat abdominal exam continues to be soft and no peritoneal signs. Patient was counseled on lab and imaging findings. Recommended close PCP follow up and possible GI referral she continues to have pain on the right-hand side. Short course of pain medication sent to pharmacy of choice. ED return precautions discussed at bedside. Patient expressed understanding of the plan and is in agreement at this time. All questions answered at the time of discharge. Discharge Plan Departure Patient Disposition: Home Clinical Impression: Abdominal pain Instructions: DI for Abdominal Pain-Adult Prescriptions: New tramadol 50 mg tablet 50 mg PO Q8H PRN (Reason: pain) Qty: 14 0RF No Action ipratropium bromide 42 mcg (0.06 %) spray,non-aerosol 2 spray intranasal TID PRN (Reason: allergy symptoms) Qty: 15 0RF Rx Instructions: administer into each nostril Xarelto 10 mg tablet 10 mg PO DAILY levothyroxine [Synthroid] 50 mcg tablet 50 mcg PO DAILY Qty: 90 3RF (DME) lancets Misc See Rx Instructions .Route Qty: 100 0RF Rx Instructions: Test blood glucose once daily (DME) lancets [TRUEplus Lancets] 28 gauge misc See Rx Instructions .Route Qty: 200 2RF Rx Instructions: As directed atorvastatin 40 mg tablet 40 mg PO ONCE PM Qty: 90 3RF losartan 25 mg tablet 25 mg PO DAILY Qty: 90 3RF (DME) True Metrix Glucose Test Strip Strip See Rx Instructions .Route Qty: 100 3RF Rx Instructions: Test blood glucose 2-4 times daily betamethasone dipropionate 0.05 % cream 1 applic topical DAILY PRN (Reason: itching) Qty: 45 3RF (DME) blood-glucose meter Kit See Rx Instructions .Route Qty: 1 0RF Rx Instructions: As directed clobetasol 0.05 % ointment 1 applic topical DAILY Qty: 45 3RF Rx Instructions: apply to affected area every other day gabapentin 300 mg capsule 300 mg PO BID Referrals: Daniela Greer ARNP [Primary Care Provider] - Stand Alone Forms: Patient Portal/API
[2023-10-04 17:00] VITALS: BP 142/67; PULSE 78; RESP 16; O2SAT 98
--- NOTE | 2023-10-04 17:11 | DI.CT.S_ITS ---
PROCEDURE: CT ABDOMEN PELVIS WO CON INDICATIONS: RUQ PAIN TECHNIQUE: Axial sections were acquired from the lung bases to the pubic symphysis. Coronal and sagittal reformats were performed. For radiation dose reduction, the following was used: automated exposure control, adjustment of mA and/or kV according to patient size. COMPARISON: [facility], , US ABDOMEN LIMITED, 10/04/2023, 16:51. FINDINGS: Image quality: Diagnostic. Lower Chest: No significant findings. URINARY: Right Kidney: No stones or hydronephrosis. Right Ureter: No hydroureter. Left Kidney: No stones or hydronephrosis. Left Ureter: No hydroureter. Bladder: Normal wall thickness. No stones. Multiple phleboliths are seen in lower pelvis. ABDOMEN: Liver: No contour-deforming solid mass. Gallbladder: No radiopaque gallstones or gallbladder wall thickening. Biliary ducts: No biliary dilation. Pancreas: No ductal dilation. Spleen: Size is within normal limits. Adrenal Glands: No adrenal nodules. Stomach and Bowel: There is no bowel obstruction. No gross abnormal bowel wall thickening or mesenteric fat stranding. Small hiatal hernia is seen. Fecal stasis throughout the colon is noted . Descending colon and sigmoid colon diverticulosis is seen without colonic wall thickening or mesenteric fat stranding. No abscess collection. Peritoneum: No abnormal intraperitoneal fluid. No free air. Ventral Wall: No hernia. Abdominal Nodes: No enlarged retroperitoneal or mesenteric lymph nodes. Vessels: Aorta and inferior vena cava are normal in size. PELVIS: Pelvic Organs: Unremarkable. Pelvic Nodes: Unremarkable. Miscellaneous: No inguinal hernias are seen. Bones: No suspicious bony lesions. No acute vertebral body compression fracture. 2 mm anterolisthesis of L3 on L4. IMPRESSION: 1. No obstructing stones or hydronephrosis. Normal appearing urinary bladder. 2. [id number]-[id number] constipation. No bowel obstruction or abnormal bowel wall thickening. No free fluid or free air. Colonic diverticulosis without CT evidence of acute diverticulitis. 3. No discrete hepatic lesion is seen. Normal appearing gallbladder. No biliary ductal dilatation. Dictated by: Hugh Montes De Oca M.D. on 10/04/2023 at 17:32 Approved by: Hugh Montes De Oca M.D. on 10/04/2023 at 17:35
[2023-10-04 17:32] VITALS: BP 138/72; PULSE 75; RESP 18; O2SAT 97
== END 2023-10-04 17:59 | disposition home or self-care (01) ==
PROVIDERS: Emergency Provider Emergency Medicine; Family Provider Nurse Practitioner; PCP Nurse Practitioner
DX: R10.11 Right upper quadrant pain (principal); R11.0 Nausea; Z79.01 Long term (current) use of anticoagulants
CPT/HCPCS: 36415; 74176; 76705; 80053; 83690; 85025; 96374; 99284; J2405

== ENCOUNTER 2023-10-15 09:10 | Emergency (ER) | payer MEDICARE, OTHER, SELFPAY ==
[2023-04-01 09:38] VITALS: BMI 36.1
[2023-10-15] VITALS (16 sets, daily range): BP systolic 138–199; BP diastolic 80–98; PULSE 61–97; RESP 13–29; TEMP 36.2; O2SAT 94–99; BMI 34.2
--- NOTE | 2023-10-15 09:38 | ED.GENADULT ---
HPI - General Adult General Chief complaint: Upper Respiratory Symptoms Stated complaint: throat feels like it's closing, low BP, sent by PT Time Seen by Provider: 10/15/23 09:38 Source: patient Mode of arrival: Ambulatory Limitations: no limitations History of Present Illness HPI narrative: 68-year-old female on Xarelto for history of prior blood clots, hypertension, dyslipidemia, hypothyroidism, diabetes type 2 with prior food allergies who presents with complaint of some tightness and hoarseness in her throat. Patient states she was at physical therapy leaned backwards to lay flat on her back to perform maneuver when she felt like her throat was tight. Her blood pressure was elevated. Patient states her voice is a little bit hoarse. She states this was at about 830 this morning has not resolved. Physical therapy she states requested she come to the ER. She states she feels she is doing fine she does not feel that it is progressing. Patient states no fever or cold cough or congestion recently. No sore throat. No difficulty with swallowing. She does have a remote history of food allergies and had quite a bit of workup including ENT scoping her, EGD and found to have reflux that were thought to be a cause of similar symptoms that happened about 10 years ago. She does follow with Allergy. She has not had symptoms in quite some time. She had gotten retested for epi as she had a reaction once after receiving some exposure and had seizure like activity when that occurred. She states she was rechecked for allergy to epinephrine and it was negative. Patient states no tightness in her chest no pain, no swelling of the lips or tongue. No nausea or vomiting. No rash, no itchiness. No diarrhea. No abdominal pain. Patient states she is received steroids and Benadryl in the past for similar symptoms but only time she ever received IM epi was from her supervisor [employer]. She is unaware of any new exposure she states this all started when she laid flat on her back. Current medications include Xarelto, atorvastatin, levothyroxine, medication for diabetes and hypertension. She is also on omeprazole daily. Known allergies to doxycycline, Z-Anam and Valium. No tobacco, alcohol or recreational drugs. Related Data Home Medications Medication Instructions Recorded Confirmed rivaroxaban 10 mg tablet (Xarelto) 10 mg PO DAILY 07/20/20 10/10/23 gabapentin 300 mg capsule 300 mg PO BID 07/16/22 10/10/23 Previous Rx's Medication Instructions Recorded clobetasol 0.05 % topical ointment 1 applic topical DAILY #45 grams 10/30/22 ipratropium bromide 42 mcg (0.06 2 spray intranasal TID PRN allergy 11/23/22 %) nasal spray symptoms #15 mL betamethasone dipropionate 0.05 % 1 applic topical DAILY PRN itching 04/01/23 topical cream #45 grams blood-glucose meter #1 ea 04/11/23 levothyroxine 50 mcg tablet 50 mcg PO DAILY Hypothyrodisim #90 05/21/23 (Synthroid) tabs lancets #100 ea 05/29/23 atorvastatin 40 mg tablet 40 mg PO ONCE PM #90 tabs 07/29/23 lancets 28 gauge (TRUEplus Lancets) #200 ea 07/29/23 losartan 25 mg tablet 25 mg PO DAILY for blood pressure 07/29/23 #90 tabs blood sugar diagnostic (True #100 ea 07/30/23 Metrix Glucose Test Strip) tramadol 50 mg tablet 50 mg PO Q8H PRN pain #14 tabs 10/13/23 epinephrine 0.3 mg/0.3 mL 0.3 mg (0.3 mL) IM Q5-15M PRN 10/15/23 injection, auto-injector (EpiPen anaphylaxis #2 ea 2-Anam) prednisone 20 mg tablet 40 mg (2 x 20 mg) PO DAILY 3 days 10/15/23 #6 tabs Allergies Allergy/AdvReac Type Severity Reaction Status Date / Time clindamycin Allergy Mild RASH Verified 10/15/23 09:28 doxycycline Allergy Unknown RASH Verified 10/15/23 09:28 azithromycin AdvReac Unknown THROW UP Verified 10/15/23 09:28 CT Contrast/Dye Allergy Severe Difficulty Uncoded 10/10/23 11:02 Breathing Review of Systems Review of Systems ROS Unobtainable: All systems reviewed & are unremarkable except as noted in HPI and below Patient History Medical History Diabetes type 2, controlled Chronic anticoagulation Schatzki's ring of distal esophagus (~03/20/21) Enteritis Sensorineural hearing loss, bilateral Subungual hematoma of great toe DVT (deep venous thrombosis) (~2013) DVT of axillary vein, chronic left Lichen planus Obstructive sleep apnea of adult Obesity (BMI 30-39.9) Hyperlipidemia Irritable larynx syndrome Osteoarthritis of right knee Plantar warts Eczema Osteoarthritis Sleep apnea (~2015) Shoulder pain Hepatitis B (~1976) History of ovarian cyst Infertility Fibroids Abnormal Pap smear of cervix Gastro-esophageal reflux disease with esophagitis Hayfever (1966) Measles Mumps Rosacea (2009) Acne (1970) History of torn meniscus of left knee (2012) Retinal detachment, left (2010) Retinal detachment, right (2011) PCOS (polycystic ovarian syndrome) (1974) Hypothyroidism (2009) Postoperative pulmonary embolism (2013) Anaphylactic reaction Surgical History Anesthesia History of surgical removal of meniscus of knee (09/03/13) History of eye surgery (05/15/12) History of eye surgery (02/27/11) History of sinus surgery (1987) Status post surgical removal of neoplasm of skin (1957) Status post endometrial ablation (2005) History of knee replacement (05/13/14) Status post loop electrosurgical excision procedure (LEEP) of cervix (01/2006) Status post delivery (06/1981) Status post delivery (12/1984) History of tonsillectomy (1964) Family History Father Heart disease Mother Osteoporosis Stroke Celiac disease Glaucoma COPD (chronic obstructive pulmonary disease) Emphysema lung Sister Age: 64 Alcoholic Drug abuse Hepatitis C Son No problems noted. Son [id number] transgender person PCOS (polycystic ovarian syndrome) Social History household members: spouse Smoking Status: Never smoker alcohol intake: current Smoking Status: Never smoker alcohol intake frequency: holidays/special occasions only Substance Use Type: does not use Exam Narrative Exam Narrative: GEN: well nourished, well appearing female, alert and oriented x 3, patient appears to be in mild distress. HEENT: Atraumatic, pupils are equal round reactive to light, extraocular movements are intact, nares are clear, there is no conjunctival pallor. Throat is clear without any exudates, erythema, tonsillar enlargement or uvular deviation, 3rd is clear no erythema, no swelling appreciated no swelling of the lips or oropharynx. Patient is slightly hoarse., she is sitting back in bed comfortably. Hoarseness sort of comes and goes with clearing her throat. No stridor. No difficulty with secretions. HEART: Regular rate and rhythm without murmur, clicks, rubs. Pulses are equal in upper and lower extremities LUNGS:Lungs clear to auscultation, no wheezes, rales, crackles, chest moves symmetrically ABD:bowel sounds normal, soft, non-tender, no guarding, rebound, rigidity, no masses noted, no hepatosplenomegaly MSCL: Non-tender, no muscle atrophy, muscles strength 5/5 upper and lower extremities, full range of motion, normal gait NEURO:CN 2-12 intact, sensation normal SKIN: No rash, erythema or other skin changes. Initial Vital Signs Initial Vital Signs: Vital Signs Temperature 97.1 F L 10/15/23 09:11 Pulse Rate 96 H 10/15/23 09:11 Respiratory Rate 16 10/15/23 09:11 Blood Pressure 199/88 H 10/15/23 09:11 Pulse Oximetry 97 10/15/23 09:11 Oxygen Delivery Method Room Air 10/15/23 09:11 Course Orders Ordered: Discontinued Medications Diphenhydramine HCl (Diphenhydramine 50 Mg/Ml Vial) 50 mg IV NOW ONE Stop: 10/15/23 09:55 Last Admin: 10/15/23 10:21 Dose: 50 mg Documented By: KINGSTON Famotidine (Famotidine 20 Mg/2 Ml Vial) 20 mg IV NOW KAREN Last Admin: 10/15/23 10:21 Dose: 20 mg Documented By: KINGSTON Methylprednisolone (Methylprednisolone 125 Mg/2 Ml Vial) 125 mg IV NOW ONE Stop: 10/15/23 09:55 Last Admin: 10/15/23 10:21 Dose: 125 mg Documented By: [facility] Vital Signs Vital signs: Vital Signs - 8 hr 10/15/23 09:11 10/15/23 09:18 10/15/23 09:19 Temperature 97.1 F L Pulse Rate 96 H 93 H Respiratory Rate 16 Blood Pressure 199/88 H 199/88 H Pulse Oximetry 97 97 Oxygen Delivery Method Room Air 10/15/23 09:19 10/15/23 09:30 10/15/23 09:31 Temperature Pulse Rate 94 H 72 71 Respiratory Rate 29 H 16 15 Blood Pressure Pulse Oximetry 98 98 99 Oxygen Delivery Method 10/15/23 09:31 10/15/23 10:05 10/15/23 10:06 Temperature Pulse Rate 73 78 Respiratory Rate 23 21 Blood Pressure 138/80 Pulse Oximetry 96 95 Oxygen Delivery Method 10/15/23 10:06 10/15/23 10:30 10/15/23 10:31 Temperature Pulse Rate 68 97 H Respiratory Rate 13 22 Blood Pressure 168/81 H Pulse Oximetry 98 98 Oxygen Delivery Method 10/15/23 10:31 10/15/23 10:32 10/15/23 10:32 Temperature Pulse Rate 86 Respiratory Rate 16 Blood Pressure 191/89 H 189/98 H Pulse Oximetry 98 Oxygen Delivery Method 10/15/23 11:05 10/15/23 11:30 10/15/23 12:00 Temperature Pulse Rate 72 61 72 Respiratory Rate 19 24 Blood Pressure Pulse Oximetry 94 96 97 Oxygen Delivery Method 10/15/23 12:03 10/15/23 12:03 10/15/23 12:30 Temperature Pulse Rate 73 72 Respiratory Rate 18 21 Blood Pressure 183/82 H Pulse Oximetry 95 96 Oxygen Delivery Method 10/15/23 12:31 10/15/23 12:31 Temperature Pulse Rate 69 Respiratory Rate 19 Blood Pressure 161/83 H Pulse Oximetry 96 Oxygen Delivery Method Medical Decision Making MDM Narrative Medical decision making narrative: 68-year-old female who developed some hoarseness and tightness in her throat after lying backwards during physical therapy. No known exposure she has had history of some food allergies and had similar symptoms 10 years ago and was ultimately thought to be secondary to esophageal issues and reflux. Patient at that time had seen supervisor [employer] who she still follows with, ENT for a scope and an EGD. Patient states symptoms do not seem to be progressing. She has not had any ingestions that she suspects. She does not have any other symptoms of allergy but is slightly hoarse on examination but states that she feels quite comfortable and wanted to go home but PT made her come to the ED. we will cover for potential reaction with steroids, Pepcid and Benadryl. Discussed IM epinephrine but patient had what sounds like an adverse type reaction in the past and she feels it has been stable for the past hour and not worsening in any way so will hold off at this time. On recheck patient states feels about the same maybe slightly improved. She felt twitchy after medications. Suspect that maybe from the Benadryl. She otherwise is appropriate, still little bit hypertensive. Denies any worsening of symptoms. She has a little bit sleepy after the Benadryl. Recheck at 2 hours after medications. patient is feeling improved still little bit sleepy. No additional twitching. Patient states she feels like things have improved, she is not hoarse. Discussed with patient she does not have EpiPen anymore so we will give a prescription, recommended to follow up with her supervisor [employer] was short course of oral steroid and to continue with her omeprazole and Benadryl. Discussed return precautions all questions answered Discharge Plan Departure Patient Disposition: Home Clinical Impression: Throat tightness Activity Restrictions/Additional Instructions: Please follow up with your physician and supervisor [employer] for recheck. Call for an appointment. Take oral steroid once daily until gone. You may take Benadryl 1-2 tablets every 6 hours as needed for symptoms. A prescription for EpiPen was included as well. Prescription sent to [facility] in [place]. Please return for new or worsening symptoms increasing sensation of swelling, difficulty swallowing, hoarseness or stridor, lightheadedness or passing, persistent vomiting, new redness hives, chest pain or shortness of breath or other new or concerning changes. Prescriptions: New prednisone 20 mg tablet 40 mg PO DAILY 3 Days Qty: 6 0RF epinephrine [EpiPen 2-Anam] 0.3 mg/0.3 mL auto-injector 0.3 mg IM Q5-15M PRN (Reason: anaphylaxis) Qty: 2 0RF Rx Instructions: do not exceed 3 doses per episode No Action ipratropium bromide 42 mcg (0.06 %) spray,non-aerosol 2 spray intranasal TID PRN (Reason: allergy symptoms) Qty: 15 0RF Rx Instructions: administer into each nostril Xarelto 10 mg tablet 10 mg PO DAILY levothyroxine [Synthroid] 50 mcg tablet 50 mcg PO DAILY Qty: 90 3RF (DME) lancets Misc See Rx Instructions .Route Qty: 100 0RF Rx Instructions: Test blood glucose once daily (DME) lancets [TRUEplus Lancets] 28 gauge misc See Rx Instructions .Route Qty: 200 2RF Rx Instructions: As directed atorvastatin 40 mg tablet 40 mg PO ONCE PM Qty: 90 3RF losartan 25 mg tablet 25 mg PO DAILY Qty: 90 3RF (DME) True Metrix Glucose Test Strip Strip See Rx Instructions .Route Qty: 100 3RF Rx Instructions: Test blood glucose 2-4 times daily tramadol 50 mg tablet 50 mg PO Q8H PRN (Reason: pain) Qty: 14 0RF betamethasone dipropionate 0.05 % cream 1 applic topical DAILY PRN (Reason: itching) Qty: 45 3RF (DME) blood-glucose meter Kit See Rx Instructions .Route Qty: 1 0RF Rx Instructions: As directed clobetasol 0.05 % ointment 1 applic topical DAILY Qty: 45 3RF Rx Instructions: apply to affected area every other day gabapentin 300 mg capsule 300 mg PO BID Referrals: Daniela Greer ARNP [Primary Care Provider] - Stand Alone Forms: Patient Portal/API
[2023-10-15] MEDS: methylPREDNISolone 125 MG/2 ML VIAL IV (10:21)
[2023-10-15] MEDS: FAMOTIDINE 20 MG/2 ML VIAL IV (10:21)
[2023-10-15] MEDS: diphenhydrAMINE 50 MG/ML VIAL IV (10:21)
--- NOTE | 2023-10-15 10:44 | PC.NURSE ---
Patient was at PT laying down felt tightness in her throat I didn't want to come they insisted Patient states sensation feels similar to reactions in the past. Recently started on omeprazole for reflux. In process of evaluation for upper and lower scopes.
--- NOTE | 2023-10-15 10:49 | PC.NURSE ---
Patient and Spouse wanted to make sure epinepherine was removed from allergy list as she had allergy testing done that confirmed she didn't have a allergy.
== END 2023-10-15 12:44 | disposition home or self-care (01) ==
PROVIDERS: Emergency Provider Emergency Medicine; Family Provider Nurse Practitioner; PCP Nurse Practitioner
DX: R07.0 Pain in throat (principal)
CPT/HCPCS: 36415; 96374; 96375; 99283; 99284; J1200; J2930

== ENCOUNTER → 2023-11-07 07:41 | Outpatient (CLI) | payer MEDICARE, OTHER, SELFPAY ==
[2023-10-23 14:52] VITALS: BMI 36.1
--- NOTE | 2023-11-07 07:55 | DI.RAD.S_ITS ---
PROCEDURE: XR LUMBAR SPINE MIN 4V INDICATIONS: LOW BACK PAIN TECHNIQUE: 5 views of the lumbar spine were acquired, including bilateral oblique views. COMPARISON: [facility], , -SPINE 2-3 VIEWS, 10/11/2015, 10:33. FINDINGS: Bones: 5 nonrib-bearing vertebrae are present. There is normal bony alignment. No vertebral body compression fractures. No suspicious bony lesions. Soft tissues: Overlying bowel gas pattern is normal. No suspicious soft tissue calcifications. Oblique images: No pars defects. IMPRESSION: No acute bony abnormality. Dictated by: Bonifacio Tanner M.D. on 11/07/2023 at 11:29 Approved by: Bonifacio Tanner M.D. on 11/07/2023 at 11:29
[2023-11-07 08:40] LABS: Hematocrit 37.7 % (36-46); Hemoglobin 12.7 g/dL (12.0-16.0)
[2023-11-07 08:51] LABS: Creatinine Urine Random 88.5 mg/dL
[2023-11-07 08:58] LABS: Alanine Aminotransferase 28 IU/L (<35); Albumin 3.8 g/dL (3.5-5.0); Albumin Globulin Ratio 1.5 (1.0-2.8); Alkaline Phosphatase 69 U/L (38-126); Aspartate Aminotransferase 26 IU/L (14-36); BUN Creatinine Ratio 25.5 (6-22); Bilirubin Total 0.5 mg/dL (0.2-1.3); Blood Urea Nitrogen 14 mg/dL (7-17); Calcium 9.2 mg/dL (8.4-10.2); Carbon Dioxide 29 mmol/L (22-32); Chloride 107 mmol/L (98-107); Cholesterol 165 mg/dL (140-199); Estimated Glomerular Filt Rate > 60 mL/min (>60); Globulin 2.6 g/dL (1.7-4.1); Glucose 116 mg/dL (80-110); HDL Cholesterol 63 mg/dL (40-60); HEMOLYSIS < 15 (0-50); LDL Cholesterol Calculated 85 mg/dL (<100); Sodium 141 mmol/L (137-145); Total Protein 6.4 g/dL (6.3-8.2); Triglycerides 84 mg/dL (35-150)
[2023-11-07 08:58] LABS: Microalbumi Creatinin Ratio Ur 16.9 ug/mg CR (<30); Microalbumin Urine Random 1.5 mg/dL (0-1.6)
== END ==
LOC: LAB 07:53 → RAD 07:55
PROVIDERS: Family Provider Nurse Practitioner; PCP Nurse Practitioner; Referring Provider Anesthesiology; Visit Provider Anesthesiology
DX: E11.9 Type 2 diabetes mellitus without complications (principal); I10 Essential (primary) hypertension; E78.5 Hyperlipidemia, unspecified; Z79.01 Long term (current) use of anticoagulants; Z79.899 Other long term (current) drug therapy; M48.061 Spinal stenosis, lumbar region without neurogenic claudication
CPT/HCPCS: 36415; 72110; 80053; 80061; 82043; 82570; 85014; 85018

== ENCOUNTER → 2023-11-14 06:59 | Outpatient (CLI) | payer MEDICARE, OTHER, SELFPAY ==
[2023-10-23 14:52] VITALS: BMI 36.1
[2023-11-14 08:00] LABS: Add Manual Diff / Slide Review NO; Basophils Absolute Auto 100 /uL (0-100); Basophils Percent Auto 0.8 % (0-2); Eosinophils Absolute Auto 700 /uL (0-450); Eosinophils Percent Auto 10.4 % (2-4); Hematocrit 39.9 % (36-46); Hemoglobin 13.5 g/dL (12.0-16.0); Lymphocytes Absolute Auto 1000 /uL (1100-4500); Lymphocytes Percent Auto 14.9 % (25-40); Mean Corpuscular HGB Conc 33.9 % (30-36); Mean Corpuscular Hemoglobin 31.3 PG (26-34); Mean Corpuscular Volume 92.4 fL (80-100); Monocytes Absolute Auto 600 /uL (0-900); Monocytes Percent Auto 8.9 % (3-14); Neutrophils Absolute Auto 4400 /uL (1500-7000); Platelet Count 234 X10^3/uL (150-400); Red Blood Cell Count 4.32 X10^6/uL (4.0-5.2); Red Cell Distribution Width 12.8 % (11.6-14.8); White Blood Cell Count 6.7 X10^3/uL (4.5-11.0)
[2023-11-14 08:15] LABS: Hemoglobin A1C% w Est Avg Glu 5.9 % (4.0-6.0)
[2023-11-14 08:19] LABS: HEMOLYSIS < 15 (0-50); Iron 82 ug/dL (37-170)
[2023-11-14 08:32] LABS: Percent Iron Saturation 25 % (15-50); Total Iron Binding Capacity 322 ug/dL (265-497); Transferrin 266 mg/dL (206-381)
== END ==
LOC: LAB 07:01
PROVIDERS: Family Provider Nurse Practitioner; PCP Nurse Practitioner; Referring Provider Nurse Practitioner; Visit Provider Nurse Practitioner
DX: E11.9 Type 2 diabetes mellitus without complications (principal); Z79.899 Other long term (current) drug therapy
CPT/HCPCS: 36415; 83036; 83540; 83550; 85025

== ENCOUNTER → 2023-12-06 09:25 | Outpatient (CLI) | payer MEDICARE, OTHER, SELFPAY ==
[2023-10-23 14:52] VITALS: BMI 36.1
== END ==
LOC: RESP 09:27
PROVIDERS: Family Provider Nurse Practitioner; PCP Nurse Practitioner; Referring Provider Nurse Practitioner; Visit Provider Nurse Practitioner
DX: I10 Essential (primary) hypertension (principal)
CPT/HCPCS: 93005; 93010

== ENCOUNTER → 2023-12-17 07:42 | Outpatient (CLI) | payer MEDICARE, OTHER, SELFPAY ==
[2023-10-23 14:52] VITALS: BMI 36.1
--- NOTE | 2023-12-17 19:10 | DI.NM.S_ITS ---
DATE OF SERVICE: 12/17/2023 PROCEDURE: Exercise stress test. INDICATIONS: Dizziness, dyspnea, nausea. CARDIAC STRESS: The patient underwent exercise stress test under the supervision of an attending staff using standard [place] protocol. The patient walked on [place] protocol for 6 minutes and 14 seconds, achieved maximum heart rate of 155, which was 102% of target heart rate. Resting blood pressure 120/78 and peak blood pressure 160/102 mmHg. Achieved 6.4 METS of workload, [place] -5%. Baseline rhythm sinus. During stress, no convincing ischemic changes seen. No significant arrhythmias. No chest pain or anginal symptoms. The patient had fatigue and dyspnea. CONCLUSION: Exercise stress test is negative for inducible ischemia. Fair exercise tolerance. Hypertensive blood pressure response. Peak blood pressure 160/102 mmHg. No anginal symptoms or significant arrhythmias. Overall, low-risk exercise stress test. Kristi Long - JAZZ/simran/GWEN doc#: [id number]/job#: [id number] dd: 12/17/2023 17:03:00 dt: 12/17/2023 19:03:00 DICTATING /COPIES TO: Sindy Davidson MD COPIES MNE: [place];
== END ==
LOC: DI 07:43
PROVIDERS: Family Provider Nurse Practitioner; PCP Nurse Practitioner; Referring Provider Nurse Practitioner; Visit Provider Nurse Practitioner
DX: R42 Dizziness and giddiness; I10 Essential (primary) hypertension
CPT/HCPCS: 93017

== ENCOUNTER → 2023-12-20 07:59 | Outpatient (CLI) | payer MEDICARE, OTHER, SELFPAY ==
[2023-10-23 14:52] VITALS: BMI 36.1
--- NOTE | 2023-12-20 08:00 | DI.ECHO.S_ITS ---
[place] [facility]+ [facility] : : [address] : : [place] : : [id number] : : Phone: [phone] Echocardiogram Report + + :Name: ANNA COREAS Study Date: 12/20/2023 Height: 60 in : :[facility] ReadingLocation: Weight: 174 lb : : Gender: Female BSA: 1.8 m2 : :: 1955 Age: 68 yrs BP: 124/77 mmHg: :Reason For Study: DIZZINESS, HYPERTENSION : :Ordering Physician: VANDA, : :RIMMA Performed By: Cornelia Paz : :Referring: RIMMA DC : + + Interpretation Summary The left ventricle is normal in size. Left ventricular systolic function is normal. The ejection fraction is estimated to be 60-65%. Diastolic parameters suggest probable normal left ventricular diastolic function and normal filling pressures. The right ventricle is grossly normal size. The right ventricular systolic function is normal. The left atrial size is normal. There is no significant valvular heart disease. The aortic root is normal size. Procedure: A two-dimensional transthoracic echocardiogram with color flow and Doppler was performed. The study quality was technically adequate. Comparison is made with the echocardiogram of 06/01/2022. The patient was in sinus rhythm with heart rates between 57-67 bpm during the exam. Left Ventricle: The left ventricle is normal in size. Left ventricular wall thickness is mildly increased. Proximal septal thickening is noted. Left ventricular systolic function is normal. The ejection fraction is estimated to be 60-65%. There are no focal wall motion abnormalities. Diastolic parameters suggest probable normal left ventricular diastolic function and normal filling pressures. Right Ventricle: The right ventricle is grossly normal size. The right ventricular systolic function is normal. Atria: The left atrial size is normal. Right atrial size is normal. There is no Doppler evidence for an interatrial shunt. Mitral Valve: The mitral valve is normal in structure and function. There is no mitral regurgitation noted. Aortic Valve: The aortic valve is trileaflet. The aortic valve is slightly calcified. There is no aortic valve stenosis. No aortic regurgitation is present. Tricuspid Valve: The tricuspid valve is normal in structure and function. There is trace tricuspid regurgitation. Pulmonic Valve: The pulmonic valve leaflets are thin and pliable; valve motion is normal. There is trace pulmonic regurgitation. There is no significant valvular heart disease. Great Vessels: The aortic root is normal size. The dimensions of the ascending aorta are normal. The IVC is of normal diameter and collapses greater than 50% with a sniff. This suggests a low right atrial pressure of 3 mm Hg. Pericardium/ Pleura There is no pericardial effusion. There is no pleural effusion. MMode/2D Measurements & Calculations LVIDd: 5.1 cm LVOT diam: 2.0 cm LVIDs: 3.2 cm Ao root diam: 3.2 cm FS: 37.5 % asc Aorta Diam: 3.2 cm IVSd: 1.1 cm Ao Arch Diam (Prox Trans): 2.6 cm LVPWd: 1.00 cm LV yoder. diameter/BSA (cm/m^2): 2.9 LV sys. diameter/BSA (cm/m^2): 1.8 LA A2 area: 17.4 cm2 RA long axis: 4.4 cm LA A4 area: 17.1 cm2 RA area: 14.5 cm2 LA length (vol): 5.4 cm RA vol: 40.5 ml LA vol: 46.5 ml RA : 23.0 ml/m2 LA vol index: 26.4 ml/m2 IVC diam: 1.6 cm TAPSE: 2.4 cm Doppler Measurements & Calculations Ao V2 max: 120.8 cm/sec LVOT Max Khoa: 103.7 cm/sec Ao V2 mean: 88.2 cm/sec LV V1 max P.3 mmHg Ao max P.8 mmHg LV V1 VTI: 24.1 cm Ao mean P.3 mmHg CAMMIE(I,D): 2.4 cm2 Ao V2 VTI: 31.2 cm CAMMIE(V,D): 2.7 cm2 sev ratio: 0.77 CAMMIE indexed to BSA (cm^2/m^2): 1.4 MV E max khoa: 80.0 cm/sec PA V2 max: 77.5 cm/sec MV A max khoa: 81.7 cm/sec PA V2 mean: 56.0 cm/sec MV E/A: 0.98 PA mean P.4 mmHg Med Peak E' Khoa: 7.4 cm/sec PA pr(Accel): 20.8 mmHg E/E' med: 10.8 Lat Peak E' Khoa: 7.0 cm/sec E/E' lat: 11.4 E/e' average: 11.1 MV dec time: 0.23 sec SV(LVOT): 74.7 ml Reading Physician:11:41 AM
== END ==
PROVIDERS: Family Provider Nurse Practitioner; PCP Nurse Practitioner; Referring Provider Nurse Practitioner; Visit Provider Nurse Practitioner
DX: R42 Dizziness and giddiness (principal); I10 Essential (primary) hypertension
CPT/HCPCS: 93306

== ENCOUNTER → 2024-03-17 09:18 | Outpatient (CLI) | payer MEDICARE, OTHER, SELFPAY ==
[2023-10-23 14:52] VITALS: BMI 36.1
--- NOTE | 2024-03-17 09:19 | DI.RAD.S_ITS ---
PROCEDURE: XR CERVICAL SPINE 4V OR 5V INDICATIONS: Bilateral UE weakness, numbness, cervicalgia TECHNIQUE: 5 views of the cervical spine were acquired. COMPARISON: None. FINDINGS: Bones: No fractures or dislocations to the T1 level. No suspicious bony lesions. There is normal range of motion between flexion and extension, with preserved normal bony alignment. Spine degenerative disc disease and facet arthropathy. Soft tissues: Prevertebral soft tissues are normal in thickness. IMPRESSION: Multilevel degenerative disc disease. Multilevel facet arthropathy. No fracture. No acute osseous lesion. If symptoms and/or clinical suspicion for pathology persists, evaluation with MRI should be considered for further assessment. Dictated by: Maia Shaikh MD, PhD on 03/17/2024 at 10:01 Approved by: Maia Shaikh MD, PhD on 03/17/2024 at 10:02
== END ==
PROVIDERS: Family Provider Nurse Practitioner; PCP Nurse Practitioner; Referring Provider Physician Assistant Surgical; Visit Provider Physician Assistant Surgical
DX: M47.22 Other spondylosis with radiculopathy, cervical region (principal); M50.10 Cervical disc disorder with radiculopathy, unspecified cervical region
CPT/HCPCS: 72050

== ENCOUNTER 2024-03-23 09:45 | Outpatient (RCR) | payer MEDICARE, OTHER, SELFPAY ==
[2023-04-01 09:38] VITALS: BMI 36.1
--- NOTE | 2023-09-17 15:21 | PT.OIE ---
Current Diagnoses Low back pain, unspecified (09/17/23) Muscle weakness (generalized) (09/17/23) Plantar fascial fibromatosis (09/17/23) Other enthesopathy of right foot and ankle (09/17/23) Other enthesopathy of left foot and ankle (09/17/23) Abnormal posture (09/17/23) Past Medical History (Last Reviewed 08/12/23 @ 11:32 by MARIBEL Saavedra) Abnormal Pap smear of cervix Acne (1969) Anaphylactic reaction Chronic anticoagulation Diabetes type 2, controlled DVT (deep venous thrombosis) (~2013) DVT of axillary vein, chronic left Eczema Enteritis Fibroids Gastro-esophageal reflux disease with esophagitis Hayfever (1966) Hepatitis B (~1976) History of ovarian cyst History of torn meniscus of left knee (2012) Hyperlipidemia Hypothyroidism (2009) Infertility Irritable larynx syndrome Lichen planus Measles Mumps Obesity (BMI 30-39.9) Obstructive sleep apnea of adult Osteoarthritis Osteoarthritis of right knee PCOS (polycystic ovarian syndrome) (1974) Plantar warts Postoperative pulmonary embolism (2013) Retinal detachment, left (2010) Retinal detachment, right (2011) Rosacea (2008) Schatzki's ring of distal esophagus (~03/20/21) Sensorineural hearing loss, bilateral Shoulder pain Sleep apnea (~2015) Subungual hematoma of great toe Past Surgical History (Last Reviewed 08/12/23 @ 11:32 by MARIBEL Saavedra) Anesthesia History of eye surgery (02/27/11) History of eye surgery (05/15/12) History of knee replacement (05/13/14) History of sinus surgery (1987) History of surgical removal of meniscus of knee (09/03/13) History of tonsillectomy (1964) Status post delivery (12/1984) Status post delivery (06/1981) Status post endometrial ablation (2005) Status post loop electrosurgical excision procedure (LEEP) of cervix (01/2006) Status post surgical removal of neoplasm of skin (1957) Visit Care Team Role Provider Type MARIBEL Saavedra Family Provider Advanced Hand Tire Trimmer Primary Care Provider Specialty: Family Practice Address: [address] [place] [address], [id number] Email: [email or web address] Attending Provider Physician Referring Provider Specialty: Orthopedics Orthopedic Surgery Podiatry Address: [address] [place] [address], [place], [address] Email: [email or web address] Physical Therapy Initial Evaluation PT-OP-A Visit Information Start: 09/11/23 10:46 Freq: Status: Active Protocol: Document 09/17/23 10:28 [facility] (Rec: 09/17/23 12:07 [facility] [id number]) Out-Patient Physical Therapy Visit Information Visit Information Visit Type Initial Evaluation Visit Note 09/04 Visit Start Time 10:30 Visit Stop Time 11:25 Total Visit Minutes 55 Visit Number 1 Number of SENIOR RECRUITMENT CONSULTANT Visits 0 PT-OP-B Current Condition Start: 09/11/23 10:46 Freq: Status: Active Protocol: Document 09/17/23 10:28 [facility] (Rec: 09/17/23 12:07 [facility] [id number]) Current Condition History of Current Condition Onset Date 3 months ago; chronic w/ exasterbation 3 months ago Current Complaints B foot pain; back pain History of Current Condition Pt has been exercising a lot d /t recent diagnosis of diabetes. She is managing it with diet and exercise. She started power walking and now her feet are killing. She is still walking and it increases her pain but she isn't walking as fast anymore. She lost about 25 lbs exercises. She still takes the dog for about 20 min 2x a day but that is leisurely as she just follows the dog. She is doing recumbant bike for 30 min. Back has been really good until the last couple months and now it really hurts and it spasms in back. Has been trying exercises she found online that she is unsure if help or make worse. helps her remember to stretch before getting up. A couple days hwen both back and feet were killing ehr. She saw Dr. Stone who told her to rest and she got insoles which gives some relief but not enough. She also has a carbon fiber insert which doen't fit in shoes so not using. She got over the counter inserts. She is wearing shoes only with the inserts and is now wearing shoes in the house because it is worse when barefoot. Prior Treatments and Tests R foot xray: IMPRESSION: 1. Metatarsus adductus and hallux valgus. 2. 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 3. Achilles tendon enthesopathy at the calcaneal insertion. Treatment Goals Patient/Caregiver Goals Get back to walking, not have pain when getting up PT-OP-C Subjective Start: 09/11/23 10:46 Freq: Status: Active Protocol: Document 09/17/23 10:28 [facility] (Rec: 09/17/23 12:07 [facility] [id number]) Patient Questionnaires Foot & Ankle Ability Measure- ADL and Sports FAAM-ADL Score 57/84 Lower Extremity Functional Scale LEFS Score 32/80 OP-PT Pain Assessment Location LB Pain Location Details R sided thoracolumbosacral Description Aching,Spasm Frequency Constant Variations/Patterns tingling bottom of B feet and toes& R lat post calf Pain Aggravating Factors Standing,Sitting,Bending, Lifting Other Pain Aggravating Factors rolling Other Pain Alleviating Factors laying on back B feet Pain Location Details L>R heel and big toe worst Description Aching,Burning Frequency Constant Variations/Patterns tingling bottom of foot Pain Aggravating Factors Activity,Standing,Sitting, Walking Other Pain Aggravating Factors get up after being sedentary Other Pain Alleviating Factors nothing PT-OP-D Balance Start: 09/11/23 10:46 Freq: Status: Active Protocol: Document 09/17/23 10:28 [facility] (Rec: 09/17/23 12:07 [facility] [id number]) Balance Tests Single Limb Standing Single Limb- Right 25 sec w/hip lean and drop; ER of LE to torso Single Limb- Left 10 sec lat lean PT-OP-F Manual Assessment Start: 09/11/23 10:46 Freq: Status: Active Protocol: Document 09/17/23 10:28 [facility] (Rec: 09/17/23 12:07 [facility] [id number]) Manual Assessments Joint Mobility Assessment Joint Mobility Assessment R iliac crest higher than L; equal greater trochanter; R tibial ER & femoral ER; femoral IR L PT-OP-G Mobility & Gait Start: 09/11/23 10:46 Freq: Status: Active Protocol: Document 09/17/23 10:28 [facility] (Rec: 09/17/23 12:07 [facility] [id number]) OP Gait Assessment Comments Gait Comments Dec stance time RLE; inc lat trunk leaning; RLE turning out ; dec push off B PT-OP-J Posture/Palpation/Skin Start: 09/11/23 10:46 Freq: Status: Active Protocol: Document 09/17/23 10:28 [facility] (Rec: 09/17/23 12:07 [facility] [id number]) Posture Evaluation [facility] Postural Classification System [facility] Postural Classifications Posterior/Posterior Vertebral Compression Test 0 Lumbar Protective Mechanism Left AP 0 Lumbar Protective Mechanism Right AP 0 Lumbar Protective Mechanism Left PA 0 Lumbar Protective Mechanism Right PA 0 Comments Posture Comments toes out on RLE>LLE, hallux valgus B; mild rearfoot valgus B, torso rotated L and slightly SB L, R pelvic shear PT-OP-K Range of Motion Start: 09/11/23 10:46 Freq: Status: Active Protocol: Document 09/17/23 10:28 [facility] (Rec: 09/17/23 12:07 [facility] [id number]) Lumbar Spine Range of Motion Lumbar Spine Active Percentage Flexion 10 Extension 80 Rotation Left 25 Rotation Right 10 Lateral Flexion Left 75 Lateral Flexion Right 25 Comments mid thigh w/blocked pelvis ; w /o to about 1 in above feet w/ flex-pain; pain ext and B SB & rot Ankle and Foot Goniometric Range of Motion Ankle and Foot Right Active Dorsiflexion with Knee Flexed 0 Dorsiflexion with Knee Extended 9 Plantarflexion 69 Inversion 29 Eversion 21 Comments lacking to neutral in knee ext position Left Active Dorsiflexion with Knee Flexed 0 Dorsiflexion with Knee Extended 8 Plantarflexion 50 Inversion 31 Eversion 20 Comments lacking to neutral in knee ext position PT-OP-L Special Tests Start: 09/11/23 10:46 Freq: Status: Active Protocol: Document 09/17/23 10:28 [facility] (Rec: 09/17/23 12:07 [facility] [id number]) Special Tests Lumbar Spine Special Tests Straight Leg Raise Test Results pos B Slump Test Results pain in calf/ankle B PT-OP-M Strength Start: 09/11/23 10:46 Freq: Status: Active Protocol: Document 09/17/23 10:28 [facility] (Rec: 09/17/23 12:07 [facility] [id number]) Hip Strength Hip Manual Muscle Testing Right Flexion (L2) 3 Fair Extension (S1) 3 Fair Abduction 4+ Good+ Adduction 4- Good- External Rotation 3 Fair Internal Rotation 3+ Fair+ Left Flexion (L2) 3 Fair Extension (S1) 3- Fair- Abduction 3 Fair Adduction 3 Fair External Rotation 3+ Fair+ Internal Rotation 3+ Fair+ Knee Strength Knee Manual Muscle Testing Right Flexion (S2) 4 Good Extension (L3) 4+ Good+ Left Flexion (S2) 5 Normal Extension (L3) 4 Good Ankle/Foot Strength Ankle and Foot Manual Muscle Testing Right Dorsiflexion (L4) 4+ Good+ Inversion 4- Good- Eversion (S1) 4 Good Left Dorsiflexion (L4) 4+ Good+ Inversion 4- Good- Eversion (S1) 4 Good Toe Strength Toe Manual Muscle Testing Right 2nd Toe Flexion 3 Fair Extension 4 Good Left 2nd Toe Flexion 3 Fair Extension 5 Normal Comments toes 2-5 Right Great Toe Flexion 3 Fair Extension 4 Good Left Great Toe Flexion 3 Fair Extension 5 Normal PT-OP-Q Treatments Start: 09/11/23 10:46 Freq: Status: Active Protocol: Document 09/17/23 10:28 [facility] (Rec: 09/17/23 12:07 [facility] [id number]) Self-Care/Home Management Treatment Education Other Education 8 min: discussed how back could be affecting her foot pain and causing some of the tingling. Discussed pos neural tension tests and why calf tension during SLR is not normal tension. Discussed her significant trunk rot likely happing d/t lack of hip IR on R hip PT-OP-T Assessment and Plan Start: 09/11/23 10:46 Freq: Status: Active Protocol: Document 09/17/23 10:28 [facility] (Rec: 09/17/23 12:07 [facility] [id number]) Physical Therapy Assessment Rehab Potential Rehabilitation Potential Good Evaluation Complexity Number of Personal Factors/Comorbidities 3 or More Number of Body Systems Impaired 4 or More Clinical Presentation at Evaluation Evolving Impairments Impairments Activity Tolerance,Balance, Functional Activities, Functional Mobility,Gait,Pain, Posture,ROM,Soft Tissue Mobility,Strength,Transfers Goals activity Short Term Goal (STG) Pt will be able to do short walks w/dog without inc pain greater than 2/10 STG Duration 11/04 Manufacturing Baker Goal (LTG) Pt will be able to return to all income tax adjuster and vigerous walking w/o inc pain LTG Duration 12/10/23 strength Short Term Goal (STG) Pt will be indep w/HEP STG Duration 10/26/23 Manufacturing Baker Goal (LTG) Pt will score at least 4+/5 BLEs and 3/5 LPM in order to allow improved stability to allow greater ease w/daily activities LTG Duration 12/10/23 LEFS Impairment 32/80 Short Term Goal (STG) Pt will improve LEFS score to greater than 45/80 to show improved functional ability. STG Duration 10/26/23 Manufacturing Baker Goal (LTG) Pt will improve LEFS score to greater than 55/80 to show improved functional ability. LTG Duration 12/10/23 SLS Manufacturing Baker Goal (LTG) Pt will be able to do SLS for 30 sec B w/o hip drop or pain to show iproved balance and LE stability Assessment Summary Assessment Pt presents with B foot pain w /plantar fascitis diagnosis after increasing her walking distance and pace about 3 months ago and also a flare up of her chronic LBP that had been doing well since last instance of PT a couple years ago. Upon testing, she had significant neural tension B, which could be influencing her foot pain. She also has signifiant torso rotation in standing and lack of R hip IR which could be contributing to this and her gait mechanics. She does have foot/ankle weakenss along w/L>R hip weakness and lack of DF in the knee ext position which likely is d/t neural tension and ankle immobility/calf tightness which would be putting strain on plantar fascia B. Pt would benefit from skilled PT to work on gait mechanics, LE strength and core strength, improving balance , improving ROM and dec back pain, foot pain and LE pain. Physical Therapy Plan Frequency and Duration Frequency of Treatment 2x/Week Duration of treatment (weeks) 12 Plan of Care Start Date 09/17/23 Plan of Care End Date 12/10/23 Therapeutic Interventions Therapeutic Interventions Balance Training,Gait Training ,Home Exercise Program,Joint Mobilizations,Manual Therapy, Neuromuscular Re-education, Orthotic/Prosthetic Management ,Patient/Caregiver Education, Self-Care/Home Management,Soft Tissue Mobilization,Taping, Therapeutic Activities, Therapeutic Exercises Modalities Cold Pack/Ice Massage,Electric Stimulation,Hot Packs, Infrared Therapy,Iontophoresis ,Traction- Mechanical, Ultrasound Next Visit Focus/Plan Next Note Type Treatment Note Next Visit Plan review exercises pt is doing, teach ball roll out, teach sciatic n glide, Manual: calcaneal and talar mobs, STM to calf and HS and sciatic n path; innominate mobs and hip mobs
--- NOTE | 2023-09-17 15:21 | PT.OPPOC ---
Physical, Occupational & Speech Therapy At [facility] Current Diagnoses Low back pain, unspecified (09/17/23) Muscle weakness (generalized) (09/17/23) Plantar fascial fibromatosis (09/17/23) Other enthesopathy of right foot and ankle (09/17/23) Other enthesopathy of left foot and ankle (09/17/23) Abnormal posture (09/17/23) Visit Care Team Role Provider Type MARIBEL Saavedra Family Provider Advanced Director Learning Services Primary Care Provider Specialty: Family Practice Address: [address] [place] [address], [address] Email: [email or web address] Minnie Stone DPM Attending Provider Physician Referring Provider Specialty: Orthopedics Orthopedic Surgery Podiatry Address: [address] [place] [address], [id number] Email: [email or web address] Plan Of Care PT-OP-T Assessment and Plan Start: 09/11/23 10:46 Freq: Status: Active Protocol: Document 09/17/23 10:28 [facility] (Rec: 09/17/23 12:07 [facility] [id number]) Physical Therapy Assessment Rehab Potential Rehabilitation Potential Good Evaluation Complexity Number of Personal Factors/Comorbidities 3 or More Number of Body Systems Impaired 4 or More Clinical Presentation at Evaluation Evolving Impairments Impairments Activity Tolerance,Balance, Functional Activities, Functional Mobility,Gait,Pain, Posture,ROM,Soft Tissue Mobility,Strength,Transfers Goals activity Short Term Goal (STG) Pt will be able to do short walks w/dog without inc pain greater than 2/10 STG Duration 11/04 Long-Term Goal (LTG) Pt will be able to return to all office [employer] consultant and vigerous walking w/o inc pain LTG Duration 12/10/23 strength Short Term Goal (STG) Pt will be indep w/HEP STG Duration 10/26/23 Washer And Capper Machine Operator Goal (LTG) Pt will score at least 4+/5 BLEs and 3/5 LPM in order to allow improved stability to allow greater ease w/daily activities LTG Duration 12/10/23 LEFS Impairment 32/80 Short Term Goal (STG) Pt will improve LEFS score to greater than 45/80 to show improved functional ability. STG Duration 10/26/23 Long-Term Goal (LTG) Pt will improve LEFS score to greater than 55/80 to show improved functional ability. LTG Duration 12/10/23 SLS Washer And Capper Machine Operator Goal (LTG) Pt will be able to do SLS for 30 sec B w/o hip drop or pain to show iproved balance and LE stability Assessment Summary Assessment Pt presents with B foot pain w /plantar fascitis diagnosis after increasing her walking distance and pace about 3 months ago and also a flare up of her chronic LBP that had been doing well since last instance of PT a couple years ago. Upon testing, she had significant neural tension B, which could be influencing her foot pain. She also has signifiant torso rotation in standing and lack of R hip IR which could be contributing to this and her gait mechanics. She does have foot/ankle weakenss along w/L>R hip weakness and lack of DF in the knee ext position which likely is d/t neural tension and ankle immobility/calf tightness which would be putting strain on plantar fascia B. Pt would benefit from skilled PT to work on gait mechanics, LE strength and core strength, improving balance , improving ROM and dec back pain, foot pain and LE pain. Physical Therapy Plan Frequency and Duration Frequency of Treatment 2x/Week Duration of treatment (weeks) 12 Plan of Care Start Date 09/17/23 Plan of Care End Date 12/10/23 Therapeutic Interventions Therapeutic Interventions Balance Training,Gait Training ,Home Exercise Program,Joint Mobilizations,Manual Therapy, Neuromuscular Re-education, Orthotic/Prosthetic Management ,Patient/Caregiver Education, Self-Care/Home Management,Soft Tissue Mobilization,Taping, Therapeutic Activities, Therapeutic Exercises Modalities Cold Pack/Ice Massage,Electric Stimulation,Hot Packs, Infrared Therapy,Iontophoresis ,Traction- Mechanical, Ultrasound Next Visit Focus/Plan Next Note Type Treatment Note Next Visit Plan review exercises pt is doing, teach ball roll out, teach sciatic n glide, Manual: calcaneal and talar mobs, STM to calf and HS and sciatic n path; innominate mobs and hip mobs Plan of Care Dates Plan of Care Start Date 09/17/23 Plan of Care End Date 12/10/23 Electronically Signed by: Katlyn Trevino, PT 09/17/23 1521 If you are in agreement with this Plan of Care, please return a signed and dated copy. I have reviewed this Plan of Care and certify that the skilled therapy services above are required to meet the patient?s needs. Physician Signature Date Printed Name and Credentials Clinical Instructor Signature Printed Name and Credentials
--- NOTE | 2023-09-19 19:05 | PT.OTN ---
Current Diagnoses Low back pain, unspecified (09/19/23) Muscle weakness (generalized) (09/19/23) Plantar fascial fibromatosis (09/19/23) Other enthesopathy of right foot and ankle (09/19/23) Other enthesopathy of left foot and ankle (09/19/23) Abnormal posture (09/19/23) Physical Therapy Treatment Note PT-OP-A Visit Information Start: 09/11/23 10:46 Freq: Status: Active Protocol: Document 09/19/23 18:57 [facility] (Rec: 09/19/23 19:05 [facility] [id number]) Out-Patient Physical Therapy Visit Information Visit Information Visit Type Treatment Note Visit Note 10/05 Visit Start Time 15:24 Visit Stop Time 16:14 Visit Number 2 Number of REPAIRER ART OBJECTS Visits 0 PT-OP-B Current Condition Start: 09/11/23 10:46 Freq: Status: Active Protocol: Document 09/17/23 10:28 [facility] (Rec: 09/17/23 12:07 [facility] [id number]) Current Condition History of Current Condition Onset Date 3 months ago; chronic w/ exasterbation 3 months ago Current Complaints B foot pain; back pain History of Current Condition Pt has been exercising a lot d /t recent diagnosis of diabetes. She is managing it with diet and exercise. She started power walking and now her feet are killing. She is still walking and it increases her pain but she isn't walking as fast anymore. She lost about 25 lbs exercises. She still takes the dog for about 20 min 2x a day but that is leisurely as she just follows the dog. She is doing recumbant bike for 30 min. Back has been really good until the last couple months and now it really hurts and it spasms in back. Has been trying exercises she found online that she is unsure if help or make worse. helps her remember to stretch before getting up. A couple days hwen both back and feet were killing ehr. She saw Dr. Stone who told her to rest and she got insoles which gives some relief but not enough. She also has a carbon fiber insert which doen't fit in shoes so not using. She got over the counter inserts. She is wearing shoes only with the inserts and is now wearing shoes in the house because it is worse when barefoot. Prior Treatments and Tests R foot xray: IMPRESSION: 1. Metatarsus adductus and hallux valgus. 2. 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 3. Achilles tendon enthesopathy at the calcaneal insertion. Treatment Goals Patient/Caregiver Goals Get back to walking, not have pain when getting up PT-OP-C Subjective Start: 09/11/23 10:46 Freq: Status: Active Protocol: Document 09/19/23 18:57 [facility] (Rec: 09/19/23 19:05 [facility] [id number]) OP-PT Subjective Patient Comments Patient Comments Pt reports cont to do exercises she found online PT-OP-D Balance Start: 09/11/23 10:46 Freq: Status: Active Protocol: Document 09/17/23 10:28 [facility] (Rec: 09/17/23 12:07 [facility] [id number]) Balance Tests Single Limb Standing Single Limb- Right 25 sec w/hip lean and drop; ER of LE to torso Single Limb- Left 10 sec lat lean PT-OP-F Manual Assessment Start: 09/11/23 10:46 Freq: Status: Active Protocol: Document 09/17/23 10:28 [facility] (Rec: 09/17/23 12:07 [facility] [id number]) Manual Assessments Joint Mobility Assessment Joint Mobility Assessment R iliac crest higher than L; equal greater trochanter; R tibial ER & femoral ER; femoral IR L PT-OP-G Mobility & Gait Start: 09/11/23 10:46 Freq: Status: Active Protocol: Document 09/17/23 10:28 [facility] (Rec: 09/17/23 12:07 [facility] [id number]) OP Gait Assessment Comments Gait Comments Dec stance time RLE; inc lat trunk leaning; RLE turning out ; dec push off B PT-OP-J Posture/Palpation/Skin Start: 09/11/23 10:46 Freq: Status: Active Protocol: Document 09/17/23 10:28 [facility] (Rec: 09/17/23 12:07 [facility] [id number]) Posture Evaluation Slade Postural Classification System Slade Postural Classifications Posterior/Posterior Vertebral Compression Test 0 Lumbar Protective Mechanism Left AP 0 Lumbar Protective Mechanism Right AP 0 Lumbar Protective Mechanism Left PA 0 Lumbar Protective Mechanism Right PA 0 Comments Posture Comments toes out on RLE>LLE, hallux valgus B; mild rearfoot valgus B, torso rotated L and slightly SB L, R pelvic shear PT-OP-K Range of Motion Start: 09/11/23 10:46 Freq: Status: Active Protocol: Document 09/17/23 10:28 [facility] (Rec: 09/17/23 12:07 [facility] [id number]) Lumbar Spine Range of Motion Lumbar Spine Active Percentage Flexion 10 Extension 80 Rotation Left 25 Rotation Right 10 Lateral Flexion Left 75 Lateral Flexion Right 25 Comments mid thigh w/blocked pelvis ; w /o to about 1 in above feet w/ flex-pain; pain ext and B SB & rot Ankle and Foot Goniometric Range of Motion Ankle and Foot Right Active Dorsiflexion with Knee Flexed 0 Dorsiflexion with Knee Extended 9 Plantarflexion 69 Inversion 29 Eversion 21 Comments lacking to neutral in knee ext position Left Active Dorsiflexion with Knee Flexed 0 Dorsiflexion with Knee Extended 8 Plantarflexion 50 Inversion 31 Eversion 20 Comments lacking to neutral in knee ext position PT-OP-L Special Tests Start: 09/11/23 10:46 Freq: Status: Active Protocol: Document 09/17/23 10:28 [facility] (Rec: 09/17/23 12:07 [facility] [id number]) Special Tests Lumbar Spine Special Tests Straight Leg Raise Test Results pos B Slump Test Results pain in calf/ankle B PT-OP-M Strength Start: 09/11/23 10:46 Freq: Status: Active Protocol: Document 09/17/23 10:28 [facility] (Rec: 09/17/23 12:07 [facility] [id number]) Hip Strength Hip Manual Muscle Testing Right Flexion (L2) 3 Fair Extension (S1) 3 Fair Abduction 4+ Good+ Adduction 4- Good- External Rotation 3 Fair Internal Rotation 3+ Fair+ Left Flexion (L2) 3 Fair Extension (S1) 3- Fair- Abduction 3 Fair Adduction 3 Fair External Rotation 3+ Fair+ Internal Rotation 3+ Fair+ Knee Strength Knee Manual Muscle Testing Right Flexion (S2) 4 Good Extension (L3) 4+ Good+ Left Flexion (S2) 5 Normal Extension (L3) 4 Good Ankle/Foot Strength Ankle and Foot Manual Muscle Testing Right Dorsiflexion (L4) 4+ Good+ Inversion 4- Good- Eversion (S1) 4 Good Left Dorsiflexion (L4) 4+ Good+ Inversion 4- Good- Eversion (S1) 4 Good Toe Strength Toe Manual Muscle Testing Right 2nd Toe Flexion 3 Fair Extension 4 Good Left 2nd Toe Flexion 3 Fair Extension 5 Normal Comments toes 2-5 Right Great Toe Flexion 3 Fair Extension 4 Good Left Great Toe Flexion 3 Fair Extension 5 Normal PT-OP-Q Treatments Start: 09/11/23 10:46 Freq: Status: Active Protocol: Document 09/19/23 18:57 [facility] (Rec: 09/19/23 19:05 [facility] [id number]) Therapeutic Exercises Sidelying Exercises clamshells Side right Reps/Minutes 10 Comments cues no roll and comfortable range Sitting Exercises stretch Sitting Exercise Name plantar fascia and calf w/ towel Side bilateral Reps/Minutes 30 sec ea foot intrinsics Sitting Exercise Name 1. big toe DF 2. 2-5 DF Side bilateral Reps/Minutes 10 ea Standing Exercises stretch Standing Exercise Name 1. gastroc 2. soleus Reps/Minutes 3 min total w/form review Comments fwd lean Manual Therapy Treatment Soft Tissue Mobilization LB Body Location R QL & ES Mobilization Type Rolling Intensity/Depth Moderate Body Position Sidelying Joint Mobilizations sacrum Joint caudal Body Position Sidelying talus Joint B distraction FM calcaneus Joint B distraction FM PT-OP-R Modalities Start: 09/11/23 10:46 Freq: Status: Active Protocol: Document 09/19/23 18:57 [facility] (Rec: 09/19/23 19:05 [facility] [id number]) Hot Pack/Cold Pack Treatment Cold Pack Location LB Patient Position Hooklying PT-OP-T Assessment and Plan Start: 09/11/23 10:46 Freq: Status: Active Protocol: Document 09/19/23 18:57 [facility] (Rec: 09/19/23 19:05 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 STG Duration 10/26/23 Penitentiary Goal (LTG) Pt will improve LEFS score to greater than 55/80 to show improved functional ability. LTG Duration 12/10/23 SLS Master Tax Advisor Goal (LTG) Pt will be able to do SLS for 30 sec B w/o hip drop or pain to show iproved balance and LE stability Assessment Summary Assessment Pt did well with exercises w/ some cues for form and pt to adjust this w/the exercises she is doing already. She has significant ankle restrictions which likely are related to plantar fascia pain. Encouraged to ice feet or try frozen water bottles to roll on Physical Therapy Plan Frequency and Duration Frequency of Treatment 2x/Week Duration of treatment (weeks) 12 Plan of Care Start Date 09/17/23 Plan of Care End Date 12/10/23 Next Visit Focus/Plan Next Note Type Treatment Note Next Visit Plan teach sciatic n glide & go over core and hip exercises Manual: calcaneal and talar mobs, STM to calf and HS and sciatic n path; innominate mobs and hip mobs
--- NOTE | 2023-09-23 12:20 | PT.OTN ---
Current Diagnoses Low back pain, unspecified (09/23/23) Muscle weakness (generalized) (09/23/23) Plantar fascial fibromatosis (09/23/23) Other enthesopathy of right foot and ankle (09/23/23) Other enthesopathy of left foot and ankle (09/23/23) Abnormal posture (09/23/23) Physical Therapy Treatment Note PT-OP-A Visit Information Start: 09/11/23 10:46 Freq: Status: Active Protocol: Document 09/23/23 10:31 [facility] (Rec: 09/23/23 12:20 [facility] [id number]) Out-Patient Physical Therapy Visit Information Visit Information Visit Type Treatment Note Visit Note 11/02 Visit Start Time 10:32 Visit Stop Time 11:26 Visit Number 3 Number of SECURITY SYSTEM ADMINISTRATOR Visits 0 PT-OP-B Current Condition Start: 09/11/23 10:46 Freq: Status: Active Protocol: Document 09/17/23 10:28 [facility] (Rec: 09/17/23 12:07 [facility] [id number]) Current Condition History of Current Condition Onset Date 3 months ago; chronic w/ exasterbation 3 months ago Current Complaints B foot pain; back pain History of Current Condition Pt has been exercising a lot d /t recent diagnosis of diabetes. She is managing it with diet and exercise. She started power walking and now her feet are killing. She is still walking and it increases her pain but she isn't walking as fast anymore. She lost about 25 lbs exercises. She still takes the dog for about 20 min 2x a day but that is leisurely as she just follows the dog. She is doing recumbant bike for 30 min. Back has been really good until the last couple months and now it really hurts and it spasms in back. Has been trying exercises she found online that she is unsure if help or make worse. helps her remember to stretch before getting up. A couple days hwen both back and feet were killing ehr. She saw Dr. Stone who told her to rest and she got insoles which gives some relief but not enough. She also has a carbon fiber insert which doen't fit in shoes so not using. She got over the counter inserts. She is wearing shoes only with the inserts and is now wearing shoes in the house because it is worse when barefoot. Prior Treatments and Tests R foot xray: IMPRESSION: 1. Metatarsus adductus and hallux valgus. 2. 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 3. Achilles tendon enthesopathy at the calcaneal insertion. Treatment Goals Patient/Caregiver Goals Get back to walking, not have pain when getting up PT-OP-C Subjective Start: 09/11/23 10:46 Freq: Status: Active Protocol: Document 09/23/23 10:31 [facility] (Rec: 09/23/23 12:20 [facility] [id number]) OP-PT Subjective Patient Comments Patient Comments reports no change. compliance w/HEP PT-OP-D Balance Start: 09/11/23 10:46 Freq: Status: Active Protocol: Document 09/17/23 10:28 [facility] (Rec: 09/17/23 12:07 [facility] [id number]) Balance Tests Single Limb Standing Single Limb- Right 25 sec w/hip lean and drop; ER of LE to torso Single Limb- Left 10 sec lat lean PT-OP-F Manual Assessment Start: 09/11/23 10:46 Freq: Status: Active Protocol: Document 09/17/23 10:28 [facility] (Rec: 09/17/23 12:07 [facility] [id number]) Manual Assessments Joint Mobility Assessment Joint Mobility Assessment R iliac crest higher than L; equal greater trochanter; R tibial ER & femoral ER; femoral IR L PT-OP-G Mobility & Gait Start: 09/11/23 10:46 Freq: Status: Active Protocol: Document 09/17/23 10:28 [facility] (Rec: 09/17/23 12:07 [facility] [id number]) OP Gait Assessment Comments Gait Comments Dec stance time RLE; inc lat trunk leaning; RLE turning out ; dec push off B PT-OP-J Posture/Palpation/Skin Start: 09/11/23 10:46 Freq: Status: Active Protocol: Document 09/17/23 10:28 [facility] (Rec: 09/17/23 12:07 [facility] [id number]) Posture Evaluation Slade Postural Classification System Slade Postural Classifications Posterior/Posterior Vertebral Compression Test 0 Lumbar Protective Mechanism Left AP 0 Lumbar Protective Mechanism Right AP 0 Lumbar Protective Mechanism Left PA 0 Lumbar Protective Mechanism Right PA 0 Comments Posture Comments toes out on RLE>LLE, hallux valgus B; mild rearfoot valgus B, torso rotated L and slightly SB L, R pelvic shear PT-OP-K Range of Motion Start: 09/11/23 10:46 Freq: Status: Active Protocol: Document 09/17/23 10:28 [facility] (Rec: 09/17/23 12:07 [facility] [id number]) Lumbar Spine Range of Motion Lumbar Spine Active Percentage Flexion 10 Extension 80 Rotation Left 25 Rotation Right 10 Lateral Flexion Left 75 Lateral Flexion Right 25 Comments mid thigh w/blocked pelvis ; w /o to about 1 in above feet w/ flex-pain; pain ext and B SB & rot Ankle and Foot Goniometric Range of Motion Ankle and Foot Right Active Dorsiflexion with Knee Flexed 0 Dorsiflexion with Knee Extended 9 Plantarflexion 69 Inversion 29 Eversion 21 Comments lacking to neutral in knee ext position Left Active Dorsiflexion with Knee Flexed 0 Dorsiflexion with Knee Extended 8 Plantarflexion 50 Inversion 31 Eversion 20 Comments lacking to neutral in knee ext position PT-OP-L Special Tests Start: 09/11/23 10:46 Freq: Status: Active Protocol: Document 09/17/23 10:28 [facility] (Rec: 09/17/23 12:07 [facility] [id number]) Special Tests Lumbar Spine Special Tests Straight Leg Raise Test Results pos B Slump Test Results pain in calf/ankle B PT-OP-M Strength Start: 09/11/23 10:46 Freq: Status: Active Protocol: Document 09/17/23 10:28 [facility] (Rec: 09/17/23 12:07 [facility] [id number]) Hip Strength Hip Manual Muscle Testing Right Flexion (L2) 3 Fair Extension (S1) 3 Fair Abduction 4+ Good+ Adduction 4- Good- External Rotation 3 Fair Internal Rotation 3+ Fair+ Left Flexion (L2) 3 Fair Extension (S1) 3- Fair- Abduction 3 Fair Adduction 3 Fair External Rotation 3+ Fair+ Internal Rotation 3+ Fair+ Knee Strength Knee Manual Muscle Testing Right Flexion (S2) 4 Good Extension (L3) 4+ Good+ Left Flexion (S2) 5 Normal Extension (L3) 4 Good Ankle/Foot Strength Ankle and Foot Manual Muscle Testing Right Dorsiflexion (L4) 4+ Good+ Inversion 4- Good- Eversion (S1) 4 Good Left Dorsiflexion (L4) 4+ Good+ Inversion 4- Good- Eversion (S1) 4 Good Toe Strength Toe Manual Muscle Testing Right 2nd Toe Flexion 3 Fair Extension 4 Good Left 2nd Toe Flexion 3 Fair Extension 5 Normal Comments toes 2-5 Right Great Toe Flexion 3 Fair Extension 4 Good Left Great Toe Flexion 3 Fair Extension 5 Normal PT-OP-Q Treatments Start: 09/11/23 10:46 Freq: Status: Active Protocol: Document 09/23/23 10:31 [facility] (Rec: 09/23/23 12:20 [facility] [id number]) Therapeutic Exercises Supine Exercises LTR Side bilateral Reps/Minutes 10 Comments cues for core control sciatic n glide Side bilateral Reps/Minutes 10 stretches Supine Exercise Name 1. piriformis 2. figure 4 Side bilateral Reps/Minutes 30 sec ea pelvic tilts Reps/Minutes 10 Manual Therapy Treatment Soft Tissue Mobilization hip Body Location R TFL, iliacus, lat glutes, ITB Mobilization Type Rolling Intensity/Depth Moderate Body Position Hooklying Comments w/IR Joint Mobilizations tibfib Joint distal fib sup FM B hip Joint R IR free the ball and hip on axis FM Comments supine calcaneus Joint B distraction & lat glide & tiltFM Body Position Supine PT-OP-R Modalities Start: 09/11/23 10:46 Freq: Status: Active Protocol: Document 09/23/23 10:31 [facility] (Rec: 09/23/23 12:20 [facility] [id number]) Hot Pack/Cold Pack Treatment Cold Pack Location LB Patient Position Hooklying PT-OP-T Assessment and Plan Start: 09/11/23 10:46 Freq: Status: Active Protocol: Document 09/23/23 10:31 [facility] (Rec: 09/23/23 12:20 [facility] [id number]) Physical Therapy Assessment Goals activity Short Term Goal (STG) Pt will be able to do short walks w/dog without inc pain greater than 2/10 STG Duration 11/04 Machine Applicator Cementer Goal (LTG) Pt will be able to 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 STG Duration 10/26/23 Machine Applicator Cementer Goal (LTG) Pt will improve LEFS score to greater than 55/80 to show improved functional ability. LTG Duration 12/10/23 SLS Machine Applicator Cementer Goal (LTG) Pt will be able to do SLS for 30 sec B w/o hip drop or pain to show iproved balance and LE stability Assessment Summary Assessment pt did well with exercises today and was able to tolerate core stability work along w/ stretching to improve post chain mobility. She was instructed in log roll upon getting up and did well w/dec pain. Physical Therapy Plan Frequency and Duration Frequency of Treatment 2x/Week Duration of treatment (weeks) 12 Plan of Care Start Date 09/17/23 Plan of Care End Date 12/10/23 Next Visit Focus/Plan Next Note Type Treatment Note Next Visit Plan Review sciatic n glide & go over core and hip exercises Manual: calcaneal and talar mobs, STM to calf and HS and sciatic n path; innominate mobs and hip mobs
--- NOTE | 2023-09-26 14:37 | PT.OTN ---
Current Diagnoses Low back pain, unspecified (09/26/23) Muscle weakness (generalized) (09/26/23) Plantar fascial fibromatosis (09/26/23) Other enthesopathy of right foot and ankle (09/26/23) Other enthesopathy of left foot and ankle (09/26/23) Abnormal posture (09/26/23) Physical Therapy Treatment Note PT-OP-A Visit Information Start: 09/11/23 10:46 Freq: Status: Active Protocol: Document 09/26/23 14:12 [facility] (Rec: 09/26/23 14:37 [facility] [id number]) Out-Patient Physical Therapy Visit Information Visit Information Visit Type Treatment Note Visit Note 12/03 Visit Start Time 13:51 Visit Stop Time 14:30 Visit Number 4 Number of HOROLOGIST Visits 0 PT-OP-B Current Condition Start: 09/11/23 10:46 Freq: Status: Active Protocol: Document 09/17/23 10:28 [facility] (Rec: 09/17/23 12:07 [facility] [id number]) Current Condition History of Current Condition Onset Date 3 months ago; chronic w/ exasterbation 3 months ago Current Complaints B foot pain; back pain History of Current Condition Pt has been exercising a lot d /t recent diagnosis of diabetes. She is managing it with diet and exercise. She started power walking and now her feet are killing. She is still walking and it increases her pain but she isn't walking as fast anymore. She lost about 25 lbs exercises. She still takes the dog for about 20 min 2x a day but that is leisurely as she just follows the dog. She is doing recumbant bike for 30 min. Back has been really good until the last couple months and now it really hurts and it spasms in back. Has been trying exercises she found online that she is unsure if help or make worse. helps her remember to stretch before getting up. A couple days hwen both back and feet were killing ehr. She saw Dr. Stone who told her to rest and she got insoles which gives some relief but not enough. She also has a carbon fiber insert which doen't fit in shoes so not using. She got over the counter inserts. She is wearing shoes only with the inserts and is now wearing shoes in the house because it is worse when barefoot. Prior Treatments and Tests R foot xray: IMPRESSION: 1. Metatarsus adductus and hallux valgus. 2. 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 3. Achilles tendon enthesopathy at the calcaneal insertion. Treatment Goals Patient/Caregiver Goals Get back to walking, not have pain when getting up PT-OP-C Subjective Start: 09/11/23 10:46 Freq: Status: Active Protocol: Document 09/26/23 14:12 [facility] (Rec: 09/26/23 14:37 [facility] [id number]) OP-PT Subjective Patient Comments Patient Comments Pt reports feeling good until this AM woke up w/pain and worsened trhough the day PT-OP-D Balance Start: 09/11/23 10:46 Freq: Status: Active Protocol: Document 09/17/23 10:28 [facility] (Rec: 09/17/23 12:07 [facility] [id number]) Balance Tests Single Limb Standing Single Limb- Right 25 sec w/hip lean and drop; ER of LE to torso Single Limb- Left 10 sec lat lean PT-OP-F Manual Assessment Start: 09/11/23 10:46 Freq: Status: Active Protocol: Document 09/17/23 10:28 [facility] (Rec: 09/17/23 12:07 [facility] [id number]) Manual Assessments Joint Mobility Assessment Joint Mobility Assessment R iliac crest higher than L; equal greater trochanter; R tibial ER & femoral ER; femoral IR L PT-OP-G Mobility & Gait Start: 09/11/23 10:46 Freq: Status: Active Protocol: Document 09/17/23 10:28 [facility] (Rec: 09/17/23 12:07 [facility] [id number]) OP Gait Assessment Comments Gait Comments Dec stance time RLE; inc lat trunk leaning; RLE turning out ; dec push off B PT-OP-J Posture/Palpation/Skin Start: 09/11/23 10:46 Freq: Status: Active Protocol: Document 09/17/23 10:28 [facility] (Rec: 09/17/23 12:07 [facility] [id number]) Posture Evaluation [facility] Postural Classification System [facility] Postural Classifications Posterior/Posterior Vertebral Compression Test 0 Lumbar Protective Mechanism Left AP 0 Lumbar Protective Mechanism Right AP 0 Lumbar Protective Mechanism Left PA 0 Lumbar Protective Mechanism Right PA 0 Comments Posture Comments toes out on RLE>LLE, hallux valgus B; mild rearfoot valgus B, torso rotated L and slightly SB L, R pelvic shear PT-OP-K Range of Motion Start: 09/11/23 10:46 Freq: Status: Active Protocol: Document 09/17/23 10:28 [facility] (Rec: 09/17/23 12:07 [facility] [id number]) Lumbar Spine Range of Motion Lumbar Spine Active Percentage Flexion 10 Extension 80 Rotation Left 25 Rotation Right 10 Lateral Flexion Left 75 Lateral Flexion Right 25 Comments mid thigh w/blocked pelvis ; w /o to about 1 in above feet w/ flex-pain; pain ext and B SB & rot Ankle and Foot Goniometric Range of Motion Ankle and Foot Right Active Dorsiflexion with Knee Flexed 0 Dorsiflexion with Knee Extended 9 Plantarflexion 69 Inversion 29 Eversion 21 Comments lacking to neutral in knee ext position Left Active Dorsiflexion with Knee Flexed 0 Dorsiflexion with Knee Extended 8 Plantarflexion 50 Inversion 31 Eversion 20 Comments lacking to neutral in knee ext position PT-OP-L Special Tests Start: 09/11/23 10:46 Freq: Status: Active Protocol: Document 09/17/23 10:28 [facility] (Rec: 09/17/23 12:07 [facility] [id number]) Special Tests Lumbar Spine Special Tests Straight Leg Raise Test Results pos B Slump Test Results pain in calf/ankle B PT-OP-M Strength Start: 09/11/23 10:46 Freq: Status: Active Protocol: Document 09/17/23 10:28 [facility] (Rec: 09/17/23 12:07 [facility] [id number]) Hip Strength Hip Manual Muscle Testing Right Flexion (L2) 3 Fair Extension (S1) 3 Fair Abduction 4+ Good+ Adduction 4- Good- External Rotation 3 Fair Internal Rotation 3+ Fair+ Left Flexion (L2) 3 Fair Extension (S1) 3- Fair- Abduction 3 Fair Adduction 3 Fair External Rotation 3+ Fair+ Internal Rotation 3+ Fair+ Knee Strength Knee Manual Muscle Testing Right Flexion (S2) 4 Good Extension (L3) 4+ Good+ Left Flexion (S2) 5 Normal Extension (L3) 4 Good Ankle/Foot Strength Ankle and Foot Manual Muscle Testing Right Dorsiflexion (L4) 4+ Good+ Inversion 4- Good- Eversion (S1) 4 Good Left Dorsiflexion (L4) 4+ Good+ Inversion 4- Good- Eversion (S1) 4 Good Toe Strength Toe Manual Muscle Testing Right 2nd Toe Flexion 3 Fair Extension 4 Good Left 2nd Toe Flexion 3 Fair Extension 5 Normal Comments toes 2-5 Right Great Toe Flexion 3 Fair Extension 4 Good Left Great Toe Flexion 3 Fair Extension 5 Normal PT-OP-Q Treatments Start: 09/11/23 10:46 Freq: Status: Active Protocol: Document 09/26/23 14:12 [facility] (Rec: 09/26/23 14:37 [facility] [id number]) Therapeutic Exercises Supine Exercises core Supine Exercise Name SL isometric flex Side bilateral Reps/Minutes 30 sec ea LTR Side bilateral Reps/Minutes 10 Comments cues for core control sciatic n glide Side bilateral Reps/Minutes 10 pelvic tilts Reps/Minutes 10 Therapeutic Activity Therapeutic Activity log roll Name in/out of bed and w/rolling Reps/Minutes 2 min sleep position Reps/Minutes 8 min Comments work on sleep position w/ pillows for props in supine and w/s/l Manual Therapy Treatment Soft Tissue Mobilization LB Body Location R QL & ES Mobilization Type Rolling Intensity/Depth Moderate Body Position Sidelying Joint Mobilizations cuneiform Joint med glide 1-2 FM L lumbar Joint L5-S1; L4-5 ; L3-4 gapping FM s/l innominate Joint R IR and add FM ws/l sacrum Joint caudal Body Position Sidelying Comments FM w/knee to chest calcaneus Joint B distraction & lat glide & tiltFM Body Position Supine PT-OP-R Modalities Start: 09/11/23 10:46 Freq: Status: Active Protocol: Document 09/23/23 10:31 [facility] (Rec: 09/23/23 12:20 [facility] [id number]) Hot Pack/Cold Pack Treatment Cold Pack Location LB Patient Position Hooklying PT-OP-T Assessment and Plan Start: 09/11/23 10:46 Freq: Status: Active Protocol: Document 09/26/23 14:12 [facility] (Rec: 09/26/23 14:37 [facility] [id number]) Physical Therapy Assessment Goals activity Short Term Goal (STG) Pt will be able to do short walks w/dog without inc pain greater than 2/10 STG Duration 12 Correction Goal (LTG) Pt will be able to return to all business account leader and vigerous walking w/o inc pain LTG Duration 12/10/23 strength Short Term Goal (STG) Pt will be indep w/HEP STG Duration 10/26/23 Export Sales Manager Goal (LTG) Pt will score at least 4+/5 BLEs and 3/5 LPM in order to allow improved stability to allow greater ease w/daily activities LTG Duration 12/10/23 LEFS Impairment 32/80 Short Term Goal (STG) Pt will improve LEFS score to greater than 45/80 to show improved functional ability. STG Duration 10/26/23 Correction Goal (LTG) Pt will improve LEFS score to greater than 55/80 to show improved functional ability. LTG Duration 12/10/23 SLS Correction Goal (LTG) Pt will be able to do SLS for 30 sec B w/o hip drop or pain to show iproved balance and LE stability Assessment Summary Assessment Pt did well with exercises w/ very min cueing needed. She does well w/min cues to remember to stay in comfortable range. Improved L DF w/manual Physical Therapy Plan Next Visit Focus/Plan Next Note Type Treatment Note Next Visit Plan advance hip/core strength Manual: calcaneal and talar mobs, STM to calf and HS and sciatic n path; innominate mobs and hip mobs
--- NOTE | 2023-10-01 16:21 | PT.OTN ---
Current Diagnoses Low back pain, unspecified (10/01/23) Muscle weakness (generalized) (10/01/23) Plantar fascial fibromatosis (10/01/23) Other enthesopathy of right foot and ankle (10/01/23) Other enthesopathy of left foot and ankle (10/01/23) Abnormal posture (10/01/23) Physical Therapy Treatment Note PT-OP-A Visit Information Start: 09/11/23 10:46 Freq: Status: Active Protocol: Document 10/01/23 13:50 [facility] (Rec: 10/01/23 16:21 [facility] [id number]) Out-Patient Physical Therapy Visit Information Visit Information Visit Type Treatment Note Visit Note 12/03 Visit Start Time 15:15 Visit Stop Time 16:02 Visit Number 5 Number of SURVEYOR [employer] DIRECTIONAL Visits 1 PT-OP-B Current Condition Start: 09/11/23 10:46 Freq: Status: Active Protocol: Document 09/17/23 10:28 [facility] (Rec: 09/17/23 12:07 [facility] [id number]) Current Condition History of Current Condition Onset Date 3 months ago; chronic w/ exasterbation 3 months ago Current Complaints B foot pain; back pain History of Current Condition Pt has been exercising a lot d /t recent diagnosis of diabetes. She is managing it with diet and exercise. She started power walking and now her feet are killing. She is still walking and it increases her pain but she isn't walking as fast anymore. She lost about 25 lbs exercises. She still takes the dog for about 20 min 2x a day but that is leisurely as she just follows the dog. She is doing recumbant bike for 30 min. Back has been really good until the last couple months and now it really hurts and it spasms in back. Has been trying exercises she found online that she is unsure if help or make worse. helps her remember to stretch before getting up. A couple days hwen both back and feet were killing ehr. She saw Dr. Stone who told her to rest and she got insoles which gives some relief but not enough. She also has a carbon fiber insert which doen't fit in shoes so not using. She got over the counter inserts. She is wearing shoes only with the inserts and is now wearing shoes in the house because it is worse when barefoot. Prior Treatments and Tests R foot xray: IMPRESSION: 1. Metatarsus adductus and hallux valgus. 2. 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 3. Achilles tendon enthesopathy at the calcaneal insertion. Treatment Goals Patient/Caregiver Goals Get back to walking, not have pain when getting up PT-OP-C Subjective Start: 09/11/23 10:46 Freq: Status: Active Protocol: Document 10/01/23 13:50 [facility] (Rec: 10/01/23 16:21 [facility] [id number]) OP-PT Subjective Patient Comments Patient Comments Patient reports her back is killing her is having spasms, patient reports she is worse. Patient reports having increased pain using strap to pull on foot. PT-OP-D Balance Start: 09/11/23 10:46 Freq: Status: Active Protocol: Document 09/17/23 10:28 [facility] (Rec: 09/17/23 12:07 [facility] [id number]) Balance Tests Single Limb Standing Single Limb- Right 25 sec w/hip lean and drop; ER of LE to torso Single Limb- Left 10 sec lat lean PT-OP-F Manual Assessment Start: 09/11/23 10:46 Freq: Status: Active Protocol: Document 09/17/23 10:28 [facility] (Rec: 09/17/23 12:07 [facility] [id number]) Manual Assessments Joint Mobility Assessment Joint Mobility Assessment R iliac crest higher than L; equal greater trochanter; R tibial ER & femoral ER; femoral IR L PT-OP-G Mobility & Gait Start: 09/11/23 10:46 Freq: Status: Active Protocol: Document 09/17/23 10:28 [facility] (Rec: 09/17/23 12:07 [facility] [id number]) OP Gait Assessment Comments Gait Comments Dec stance time RLE; inc lat trunk leaning; RLE turning out ; dec push off B PT-OP-J Posture/Palpation/Skin Start: 09/11/23 10:46 Freq: Status: Active Protocol: Document 09/17/23 10:28 [facility] (Rec: 09/17/23 12:07 [facility] [id number]) Posture Evaluation [facility] Postural Classification System [facility] Postural Classifications Posterior/Posterior Vertebral Compression Test 0 Lumbar Protective Mechanism Left AP 0 Lumbar Protective Mechanism Right AP 0 Lumbar Protective Mechanism Left PA 0 Lumbar Protective Mechanism Right PA 0 Comments Posture Comments toes out on RLE>LLE, hallux valgus B; mild rearfoot valgus B, torso rotated L and slightly SB L, R pelvic shear PT-OP-K Range of Motion Start: 09/11/23 10:46 Freq: Status: Active Protocol: Document 09/17/23 10:28 [facility] (Rec: 09/17/23 12:07 [facility] [id number]) Lumbar Spine Range of Motion Lumbar Spine Active Percentage Flexion 10 Extension 80 Rotation Left 25 Rotation Right 10 Lateral Flexion Left 75 Lateral Flexion Right 25 Comments mid thigh w/blocked pelvis ; w /o to about 1 in above feet w/ flex-pain; pain ext and B SB & rot Ankle and Foot Goniometric Range of Motion Ankle and Foot Right Active Dorsiflexion with Knee Flexed 0 Dorsiflexion with Knee Extended 9 Plantarflexion 69 Inversion 29 Eversion 21 Comments lacking to neutral in knee ext position Left Active Dorsiflexion with Knee Flexed 0 Dorsiflexion with Knee Extended 8 Plantarflexion 50 Inversion 31 Eversion 20 Comments lacking to neutral in knee ext position PT-OP-L Special Tests Start: 09/11/23 10:46 Freq: Status: Active Protocol: Document 09/17/23 10:28 [facility] (Rec: 09/17/23 12:07 [facility] [id number]) Special Tests Lumbar Spine Special Tests Straight Leg Raise Test Results pos B Slump Test Results pain in calf/ankle B PT-OP-M Strength Start: 09/11/23 10:46 Freq: Status: Active Protocol: Document 09/17/23 10:28 [facility] (Rec: 09/17/23 12:07 [facility] [id number]) Hip Strength Hip Manual Muscle Testing Right Flexion (L2) 3 Fair Extension (S1) 3 Fair Abduction 4+ Good+ Adduction 4- Good- External Rotation 3 Fair Internal Rotation 3+ Fair+ Left Flexion (L2) 3 Fair Extension (S1) 3- Fair- Abduction 3 Fair Adduction 3 Fair External Rotation 3+ Fair+ Internal Rotation 3+ Fair+ Knee Strength Knee Manual Muscle Testing Right Flexion (S2) 4 Good Extension (L3) 4+ Good+ Left Flexion (S2) 5 Normal Extension (L3) 4 Good Ankle/Foot Strength Ankle and Foot Manual Muscle Testing Right Dorsiflexion (L4) 4+ Good+ Inversion 4- Good- Eversion (S1) 4 Good Left Dorsiflexion (L4) 4+ Good+ Inversion 4- Good- Eversion (S1) 4 Good Toe Strength Toe Manual Muscle Testing Right 2nd Toe Flexion 3 Fair Extension 4 Good Left 2nd Toe Flexion 3 Fair Extension 5 Normal Comments toes 2-5 Right Great Toe Flexion 3 Fair Extension 4 Good Left Great Toe Flexion 3 Fair Extension 5 Normal PT-OP-Q Treatments Start: 09/11/23 10:46 Freq: Status: Active Protocol: Document 10/01/23 13:50 [facility] (Rec: 10/01/23 16:21 [facility] [id number]) Therapeutic Exercises Supine Exercises hip flexor stretch edge of bed Supine Exercise Name edge of bed hip flex stretch Side bilateral Reps/Minutes L X 2 right X 2 Comments pre and post manual to hip flex, not desmond Sitting Exercises AROM DF Sitting Exercise Name DF Side bilateral Reps/Minutes X25 Comments Verbal cues Standing Exercises hip extension UE's on plinth Standing Exercise Name hip extension Side bilateral Reps/Minutes 15 X Comments Verbal cues, jorden for pain Therapeutic Activity Therapeutic Activity sit to stand Name sit to stand Reps/Minutes 4 min Comments Patient ed use of self tactile cues for hip hinge log roll Name log roll Reps/Minutes 3 min Comments one step Verbal cues, multiple trials Manual Therapy Treatment Soft Tissue Mobilization lumbar paraspinals Body Location right LS paraspinals Mobilization Type Other Body Position Sidelying Comments superficial and moderate nerve slacking bilateral hip flexors Body Location hip flexors Mobilization Type Rolling,Strumming Intensity/Depth Moderate Body Position Hooklying Comments VC for breathing from diaphragm right piriformis gluteal area Body Location right glute/pririformis Mobilization Type Rolling Intensity/Depth Moderate Body Position Sidelying Comments monitored for pain Manual Techniques MET for right AI left PI and pubic shotgun Type MET Body Location SI Body Position Hooklying Reps/Duration 6 seconds X 6 each MET Comments dowel use for right AI and PI, assist for set up, direction, duration of force, manual resistance for pubic shotgun PT-OP-R Modalities Start: 09/11/23 10:46 Freq: Status: Active Protocol: Document 09/23/23 10:31 [facility] (Rec: 09/23/23 12:20 [facility] [id number]) Hot Pack/Cold Pack Treatment Cold Pack Location LB Patient Position Hooklying PT-OP-T Assessment and Plan Start: 09/11/23 10:46 Freq: Status: Active Protocol: Document 10/01/23 13:50 [facility] (Rec: 10/01/23 16:21 [facility] [id number]) Physical Therapy Assessment Goals activity Short Term Goal (STG) Pt will be able to do short walks w/dog without inc pain greater than 2/10 STG Duration 11/04 Manager Administrative Goal (LTG) Pt will be able to return to all amf mechanic and vigerous walking w/o inc pain LTG Duration 12/10/23 strength Short Term Goal (STG) Pt will be indep w/HEP STG Duration 10/26/23 Manager Administrative Goal (LTG) Pt will score at least 4+/5 BLEs and 3/5 LPM in order to allow improved stability to allow greater ease w/daily activities LTG Duration 12/10/23 LEFS Impairment 32/80 Short Term Goal (STG) Pt will improve LEFS score to greater than 45/80 to show improved functional ability. STG Duration 10/26/23 [facility] Goal (LTG) Pt will improve LEFS score to greater than 55/80 to show improved functional ability. LTG Duration 12/10/23 SLS Manager Administrative Goal (LTG) Pt will be able to do SLS for 30 sec B w/o hip drop or pain to show iproved balance and LE stability Assessment Summary Assessment Patient into session with reports of increased pain and a quad dom pattern with sit to stand, end of session able to perform sit to stand with a less quad dom pattern and reports of decreased pain. left foot pain persists. Physical Therapy Plan Frequency and Duration Frequency of Treatment 2x/Week Duration of treatment (weeks) 12 Plan of Care Start Date 09/17/23 Plan of Care End Date 12/10/23 Next Visit Focus/Plan Next Note Type Treatment Note Next Visit Plan advance hip/core strength Manual: calcaneal and talar mobs, STM to calf and HS and sciatic n path; innominate mobs and hip mobs, possibly calf stretch standing , retro stepping vs hip flexor stretch if stretch not desmond
--- NOTE | 2023-10-01 16:41 | PT.OTN ---
Current Diagnoses Low back pain, unspecified (10/01/23) Muscle weakness (generalized) (10/01/23) Plantar fascial fibromatosis (10/01/23) Other enthesopathy of right foot and ankle (10/01/23) Other enthesopathy of left foot and ankle (10/01/23) Abnormal posture (10/01/23) Physical Therapy Treatment Note PT-OP-A Visit Information Start: 09/11/23 10:46 Freq: Status: Active Protocol: Document 10/01/23 13:50 AB (Rec: 10/01/23 16:21 AB [id number]) Out-Patient Physical Therapy Visit Information Visit Information Visit Type Treatment Note Visit Note 12/03 Visit Start Time 15:15 Visit Stop Time 16:02 Visit Number 5 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 (Rec: 09/17/23 12:07 [facility] [id number]) Current Condition History of Current Condition Onset Date 3 months ago; chronic w/ exasterbation 3 months ago Current Complaints B foot pain; back pain History of Current Condition Pt has been exercising a lot d /t recent diagnosis of diabetes. She is managing it with diet and exercise. She started power walking and now her feet are killing. She is still walking and it increases her pain but she isn't walking as fast anymore. She lost about 25 lbs exercises. She still takes the dog for about 20 min 2x a day but that is leisurely as she just follows the dog. She is doing recumbant bike for 30 min. Back has been really good until the last couple months and now it really hurts and it spasms in back. Has been trying exercises she found online that she is unsure if help or make worse. helps her remember to stretch before getting up. A couple days hwen both back and feet were killing ehr. She saw Dr. Stone who told her to rest and she got insoles which gives some relief but not enough. She also has a carbon fiber insert which doen't fit in shoes so not using. She got over the counter inserts. She is wearing shoes only with the inserts and is now wearing shoes in the house because it is worse when barefoot. Prior Treatments and Tests R foot xray: IMPRESSION: 1. Metatarsus adductus and hallux valgus. 2. 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 3. Achilles tendon enthesopathy at the calcaneal insertion. Treatment Goals Patient/Caregiver Goals Get back to walking, not have pain when getting up PT-OP-C Subjective Start: 09/11/23 10:46 Freq: Status: Active Protocol: Document 10/01/23 13:50 AB (Rec: 10/01/23 16:21 AB [id number]) OP-PT Subjective Patient Comments Patient Comments Patient reports her back is killing her is having spasms, patient reports she is worse. Patient reports having increased pain using strap to pull on foot. PT-OP-D Balance Start: 09/11/23 10:46 Freq: Status: Active Protocol: Document 09/17/23 10:28 [facility] (Rec: 09/17/23 12:07 [facility] [id number]) Balance Tests Single Limb Standing Single Limb- Right 25 sec w/hip lean and drop; ER of LE to torso Single Limb- Left 10 sec lat lean PT-OP-F Manual Assessment Start: 09/11/23 10:46 Freq: Status: Active Protocol: Document 09/17/23 10:28 [facility] (Rec: 09/17/23 12:07 [facility] [id number]) Manual Assessments Joint Mobility Assessment Joint Mobility Assessment R iliac crest higher than L; equal greater trochanter; R tibial ER & femoral ER; femoral IR L PT-OP-G Mobility & Gait Start: 09/11/23 10:46 Freq: Status: Active Protocol: Document 09/17/23 10:28 [facility] (Rec: 09/17/23 12:07 [facility] [id number]) OP Gait Assessment Comments Gait Comments Dec stance time RLE; inc lat trunk leaning; RLE turning out ; dec push off B PT-OP-J Posture/Palpation/Skin Start: 09/11/23 10:46 Freq: Status: Active Protocol: Document 09/17/23 10:28 [facility] (Rec: 09/17/23 12:07 [facility] [id number]) Posture Evaluation [facility] Postural Classification System [facility] Postural Classifications Posterior/Posterior Vertebral Compression Test 0 Lumbar Protective Mechanism Left AP 0 Lumbar Protective Mechanism Right AP 0 Lumbar Protective Mechanism Left PA 0 Lumbar Protective Mechanism Right PA 0 Comments Posture Comments toes out on RLE>LLE, hallux valgus B; mild rearfoot valgus B, torso rotated L and slightly SB L, R pelvic shear PT-OP-K Range of Motion Start: 09/11/23 10:46 Freq: Status: Active Protocol: Document 09/17/23 10:28 [facility] (Rec: 09/17/23 12:07 [facility] [id number]) Lumbar Spine Range of Motion Lumbar Spine Active Percentage Flexion 10 Extension 80 Rotation Left 25 Rotation Right 10 Lateral Flexion Left 75 Lateral Flexion Right 25 Comments mid thigh w/blocked pelvis ; w /o to about 1 in above feet w/ flex-pain; pain ext and B SB & rot Ankle and Foot Goniometric Range of Motion Ankle and Foot Right Active Dorsiflexion with Knee Flexed 0 Dorsiflexion with Knee Extended 9 Plantarflexion 69 Inversion 29 Eversion 21 Comments lacking to neutral in knee ext position Left Active Dorsiflexion with Knee Flexed 0 Dorsiflexion with Knee Extended 8 Plantarflexion 50 Inversion 31 Eversion 20 Comments lacking to neutral in knee ext position PT-OP-L Special Tests Start: 09/11/23 10:46 Freq: Status: Active Protocol: Document 09/17/23 10:28 [facility] (Rec: 09/17/23 12:07 [facility] [id number]) Special Tests Lumbar Spine Special Tests Straight Leg Raise Test Results pos B Slump Test Results pain in calf/ankle B PT-OP-M Strength Start: 09/11/23 10:46 Freq: Status: Active Protocol: Document 09/17/23 10:28 [facility] (Rec: 09/17/23 12:07 [facility] [id number]) Hip Strength Hip Manual Muscle Testing Right Flexion (L2) 3 Fair Extension (S1) 3 Fair Abduction 4+ Good+ Adduction 4- Good- External Rotation 3 Fair Internal Rotation 3+ Fair+ Left Flexion (L2) 3 Fair Extension (S1) 3- Fair- Abduction 3 Fair Adduction 3 Fair External Rotation 3+ Fair+ Internal Rotation 3+ Fair+ Knee Strength Knee Manual Muscle Testing Right Flexion (S2) 4 Good Extension (L3) 4+ Good+ Left Flexion (S2) 5 Normal Extension (L3) 4 Good Ankle/Foot Strength Ankle and Foot Manual Muscle Testing Right Dorsiflexion (L4) 4+ Good+ Inversion 4- Good- Eversion (S1) 4 Good Left Dorsiflexion (L4) 4+ Good+ Inversion 4- Good- Eversion (S1) 4 Good Toe Strength Toe Manual Muscle Testing Right 2nd Toe Flexion 3 Fair Extension 4 Good Left 2nd Toe Flexion 3 Fair Extension 5 Normal Comments toes 2-5 Right Great Toe Flexion 3 Fair Extension 4 Good Left Great Toe Flexion 3 Fair Extension 5 Normal PT-OP-Q Treatments Start: 09/11/23 10:46 Freq: Status: Active Protocol: Document 10/01/23 13:50 AB (Rec: 10/01/23 16:21 AB [id number]) Therapeutic Exercises Supine Exercises hip flexor stretch edge of bed Supine Exercise Name edge of bed hip flex stretch Side bilateral Reps/Minutes L X 2 right X 2 Comments pre and post manual to hip flex, not desmond Sitting Exercises AROM DF Sitting Exercise Name DF Side bilateral Reps/Minutes X25 Comments Verbal cues Standing Exercises hip extension UE's on plinth Standing Exercise Name hip extension Side bilateral Reps/Minutes 15 X Comments Verbal cues, jorden for pain Therapeutic Activity Therapeutic Activity sit to stand Name sit to stand Reps/Minutes 4 min Comments Patient ed use of self tactile cues for hip hinge log roll Name log roll Reps/Minutes 3 min Comments one step Verbal cues, multiple trials Manual Therapy Treatment Soft Tissue Mobilization lumbar paraspinals Body Location right LS paraspinals Mobilization Type Other Body Position Sidelying Comments superficial and moderate nerve slacking bilateral hip flexors Body Location hip flexors Mobilization Type Rolling,Strumming Intensity/Depth Moderate Body Position Hooklying Comments VC for breathing from diaphragm right piriformis gluteal area Body Location right glute/pririformis Mobilization Type Rolling Intensity/Depth Moderate Body Position Sidelying Comments monitored for pain Manual Techniques MET for right AI left PI and pubic shotgun Type MET Body Location SI Body Position Hooklying Reps/Duration 6 seconds X 6 each MET Comments dowel use for right AI and PI, assist for set up, direction, duration of force, manual resistance for pubic shotgun PT-OP-R Modalities Start: 09/11/23 10:46 Freq: Status: Active Protocol: Document 09/23/23 10:31 [facility] (Rec: 09/23/23 12:20 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 STG Duration 10/26/23 Assisted Goal (LTG) Pt will improve LEFS score to greater than 55/80 to show improved functional ability. LTG Duration 12/10/23 SLS Career Services Representative Goal (LTG) Pt will be able to do SLS for 30 sec B w/o hip drop or pain to show iproved balance and LE stability Assessment Summary Assessment Patient into session with reports of increased pain and a quad dom pattern with sit to stand, end of session able to perform sit to stand with a less quad dom pattern and reports of decreased pain. left foot pain persists. Physical Therapy Plan Frequency and Duration Frequency of Treatment 2x/Week Duration of treatment (weeks) 12 Plan of Care Start Date 09/17/23 Plan of Care End Date 12/10/23 Next Visit Focus/Plan Next Note Type Treatment Note Next Visit Plan advance hip/core strength Manual: calcaneal and talar mobs, STM to calf and HS and sciatic n path; innominate mobs and hip mobs, possibly calf stretch standing , retro stepping vs hip flexor stretch if stretch not desmond
--- NOTE | 2023-10-03 15:58 | PT.OTN ---
Current Diagnoses Low back pain, unspecified (10/03/23) Muscle weakness (generalized) (10/03/23) Plantar fascial fibromatosis (10/03/23) Other enthesopathy of right foot and ankle (10/03/23) Other enthesopathy of left foot and ankle (10/03/23) Abnormal posture (10/03/23) Physical Therapy Treatment Note PT-OP-A Visit Information Start: 09/11/23 10:46 Freq: Status: Active Protocol: Document 10/03/23 14:24 AB (Rec: 10/03/23 15:57 AB [id number]) Out-Patient Physical Therapy Visit Information Visit Information Visit Type Treatment Note Visit Start Time 14:33 Visit Stop Time 15:18 Visit Number 6 Number of CATALYST RECOVERY OPERATOR Visits 2 PT-OP-B Current Condition Start: 09/11/23 10:46 Freq: Status: Active Protocol: Document 09/17/23 10:28 [facility] (Rec: 09/17/23 12:07 [facility] [id number]) Current Condition History of Current Condition Onset Date 3 months ago; chronic w/ exasterbation 3 months ago Current Complaints B foot pain; back pain History of Current Condition Pt has been exercising a lot d /t recent diagnosis of diabetes. She is managing it with diet and exercise. She started power walking and now her feet are killing. She is still walking and it increases her pain but she isn't walking as fast anymore. She lost about 25 lbs exercises. She still takes the dog for about 20 min 2x a day but that is leisurely as she just follows the dog. She is doing recumbant bike for 30 min. Back has been really good until the last couple months and now it really hurts and it spasms in back. Has been trying exercises she found online that she is unsure if help or make worse. helps her remember to stretch before getting up. A couple days hwen both back and feet were killing ehr. She saw Dr. Stone who told her to rest and she got insoles which gives some relief but not enough. She also has a carbon fiber insert which doen't fit in shoes so not using. She got over the counter inserts. She is wearing shoes only with the inserts and is now wearing shoes in the house because it is worse when barefoot. Prior Treatments and Tests R foot xray: IMPRESSION: 1. Metatarsus adductus and hallux valgus. 2. 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 3. Achilles tendon enthesopathy at the calcaneal insertion. Treatment Goals Patient/Caregiver Goals Get back to walking, not have pain when getting up PT-OP-C Subjective Start: 09/11/23 10:46 Freq: Status: Active Protocol: Document 10/03/23 14:24 AB (Rec: 10/03/23 15:57 AB [id number]) OP-PT Subjective Patient Comments Patient Comments Patient into session wearing mask/ reports not feeling well , reports blood in stool/GI discomfort, PT, Katlyn Trevino spoke with patient and advised Patient to go to walk in clinic or primary MD post session, PT advised seated exercise and PT for feet only this session. Patient reports back cont to be painful. left foot is worse than right. PT-OP-D Balance Start: 09/11/23 10:46 Freq: Status: Active Protocol: Document 09/17/23 10:28 [facility] (Rec: 09/17/23 12:07 [facility] [id number]) Balance Tests Single Limb Standing Single Limb- Right 25 sec w/hip lean and drop; ER of LE to torso Single Limb- Left 10 sec lat lean PT-OP-F Manual Assessment Start: 09/11/23 10:46 Freq: Status: Active Protocol: Document 09/17/23 10:28 [facility] (Rec: 09/17/23 12:07 [facility] [id number]) Manual Assessments Joint Mobility Assessment Joint Mobility Assessment R iliac crest higher than L; equal greater trochanter; R tibial ER & femoral ER; femoral IR L PT-OP-G Mobility & Gait Start: 09/11/23 10:46 Freq: Status: Active Protocol: Document 09/17/23 10:28 [facility] (Rec: 09/17/23 12:07 [facility] [id number]) OP Gait Assessment Comments Gait Comments Dec stance time RLE; inc lat trunk leaning; RLE turning out ; dec push off B PT-OP-J Posture/Palpation/Skin Start: 09/11/23 10:46 Freq: Status: Active Protocol: Document 09/17/23 10:28 [facility] (Rec: 09/17/23 12:07 [facility] [id number]) Posture Evaluation [facility] Postural Classification System [facility] Postural Classifications Posterior/Posterior Vertebral Compression Test 0 Lumbar Protective Mechanism Left AP 0 Lumbar Protective Mechanism Right AP 0 Lumbar Protective Mechanism Left PA 0 Lumbar Protective Mechanism Right PA 0 Comments Posture Comments toes out on RLE>LLE, hallux valgus B; mild rearfoot valgus B, torso rotated L and slightly SB L, R pelvic shear PT-OP-K Range of Motion Start: 09/11/23 10:46 Freq: Status: Active Protocol: Document 09/17/23 10:28 [facility] (Rec: 09/17/23 12:07 [facility] [id number]) Lumbar Spine Range of Motion Lumbar Spine Active Percentage Flexion 10 Extension 80 Rotation Left 25 Rotation Right 10 Lateral Flexion Left 75 Lateral Flexion Right 25 Comments mid thigh w/blocked pelvis ; w /o to about 1 in above feet w/ flex-pain; pain ext and B SB & rot Ankle and Foot Goniometric Range of Motion Ankle and Foot Right Active Dorsiflexion with Knee Flexed 0 Dorsiflexion with Knee Extended 9 Plantarflexion 69 Inversion 29 Eversion 21 Comments lacking to neutral in knee ext position Left Active Dorsiflexion with Knee Flexed 0 Dorsiflexion with Knee Extended 8 Plantarflexion 50 Inversion 31 Eversion 20 Comments lacking to neutral in knee ext position PT-OP-L Special Tests Start: 09/11/23 10:46 Freq: Status: Active Protocol: Document 09/17/23 10:28 [facility] (Rec: 09/17/23 12:07 [facility] [id number]) Special Tests Lumbar Spine Special Tests Straight Leg Raise Test Results pos B Slump Test Results pain in calf/ankle B PT-OP-M Strength Start: 09/11/23 10:46 Freq: Status: Active Protocol: Document 09/17/23 10:28 [facility] (Rec: 09/17/23 12:07 [facility] [id number]) Hip Strength Hip Manual Muscle Testing Right Flexion (L2) 3 Fair Extension (S1) 3 Fair Abduction 4+ Good+ Adduction 4- Good- External Rotation 3 Fair Internal Rotation 3+ Fair+ Left Flexion (L2) 3 Fair Extension (S1) 3- Fair- Abduction 3 Fair Adduction 3 Fair External Rotation 3+ Fair+ Internal Rotation 3+ Fair+ Knee Strength Knee Manual Muscle Testing Right Flexion (S2) 4 Good Extension (L3) 4+ Good+ Left Flexion (S2) 5 Normal Extension (L3) 4 Good Ankle/Foot Strength Ankle and Foot Manual Muscle Testing Right Dorsiflexion (L4) 4+ Good+ Inversion 4- Good- Eversion (S1) 4 Good Left Dorsiflexion (L4) 4+ Good+ Inversion 4- Good- Eversion (S1) 4 Good Toe Strength Toe Manual Muscle Testing Right 2nd Toe Flexion 3 Fair Extension 4 Good Left 2nd Toe Flexion 3 Fair Extension 5 Normal Comments toes 2-5 Right Great Toe Flexion 3 Fair Extension 4 Good Left Great Toe Flexion 3 Fair Extension 5 Normal PT-OP-Q Treatments Start: 09/11/23 10:46 Freq: Status: Active Protocol: Document 10/03/23 14:24 AB (Rec: 10/03/23 15:57 AB [id number]) Therapeutic Exercises Supine Exercises ankle pumps Supine Exercise Name ankle pumps with LE's elevated Side bilateral Reps/Minutes X30 Comments Verbal cues Sitting Exercises ankle ex with band Sitting Exercise Name DF, inv, eversion Side bilateral Equipment Used level one light blue band Reps/Minutes X10 Comments VC for direction of movement, tactile cues to avoid moving knee great toe abduction Sitting Exercise Name isometric with manual resistance Side bilateral Reps/Minutes 2X10 Comments Verbal cues AROM plantar flexion Sitting Exercise Name plantar flexion arom Side bilateral Reps/Minutes X10 Comments Verbal cues to lower slowly AROM DF Sitting Exercise Name DF Side bilateral Reps/Minutes 2X10 without resistance Comments Verbal cues to lower foot slowly foot intrinsics Sitting Exercise Name Toe yoga Side bilateral Reps/Minutes X10 X2 Comments Verbal cues Manual Therapy Treatment Soft Tissue Mobilization calf muscles Body Location bilateral calf muscles Mobilization Type Cross-Friction,Rolling Intensity/Depth Moderate Body Position Hooklying Comments Hooklying with foam roller under lower calf and with LE off edge of bolster plantar surface feet Body Location bilateral feet Mobilization Type Cross-Friction,Rolling, Strumming Intensity/Depth Moderate Body Position Hooklying Joint Mobilizations tib fib Joint bilateral LE tib fib Direction ap and pa Grade II Body Position Hooklying Reps/Duration 8 Comments monitored for pain Metatarsals Joint bilateral MT's Direction AP and PA Grade III Body Position Hooklying Reps/Duration 6 Comments monitored for pain Talocrural mobilizations Joint Talocrural Direction AP Grade II Body Position Hooklying Reps/Duration 12 Comments bilateral LE PT-OP-R Modalities Start: 09/11/23 10:46 Freq: Status: Active Protocol: Document 09/23/23 10:31 [facility] (Rec: 09/23/23 12:20 [facility] [id number]) Hot Pack/Cold Pack Treatment Cold Pack Location LB Patient Position Hooklying PT-OP-T Assessment and Plan Start: 09/11/23 10:46 Freq: Status: Active Protocol: Document 10/03/23 14:24 AB (Rec: 10/03/23 15:57 AB [id number]) Physical Therapy Assessment Goals activity Short Term Goal (STG) Pt will be able to do short walks w/dog without inc pain greater than 2/10 STG Duration 11/04 Longterm Goal (LTG) 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 STG Duration 10/26/23 Administrative Coordinator Goal (LTG) Pt will improve LEFS score to greater than 55/80 to show improved functional ability. LTG Duration 12/10/23 SLS Longterm Goal (LTG) Pt will be able to do SLS for 30 sec B w/o hip drop or pain to show iproved balance and LE stability Assessment Summary Assessment Patient reports feet feel a little better end of session. Patient continues to ambulate with bilateral LE in ER at hips decrease DF terminal stance. This session limited due to GI issues with patient advised to check in with PA or walk in clinic post session. Physical Therapy Plan Frequency and Duration Frequency of Treatment 2x/Week Duration of treatment (weeks) 12 Plan of Care Start Date 09/17/23 Plan of Care End Date 12/10/23 Next Visit Focus/Plan Next Note Type Treatment Note Next Visit Plan advance hip/core strength Manual: calcaneal and talar mobs, STM to calf and HS and sciatic n path; innominate mobs and hip mobs, possibly calf stretch standing , retro stepping vs hip flexor stretch if stretch not desmond, assess desmond to foot/ankle ex/ manual previous session
--- NOTE | 2023-10-10 15:36 | PT.OTN ---
Current Diagnoses Low back pain, unspecified (10/10/23) Muscle weakness (generalized) (10/10/23) Plantar fascial fibromatosis (10/10/23) Other enthesopathy of right foot and ankle (10/10/23) Other enthesopathy of left foot and ankle (10/10/23) Abnormal posture (10/10/23) Physical Therapy Treatment Note PT-OP-A Visit Information Start: 09/11/23 10:46 Freq: Status: Active Protocol: Document 10/10/23 11:07 AB (Rec: 10/10/23 15:35 AB [id number]) Out-Patient Physical Therapy Visit Information Visit Information Visit Type Treatment Note Visit Start Time 14:32 Visit Stop Time 15:19 Visit Number 7 Number of SUPERVISOR ASSEMBLING Visits 3 PT-OP-B Current Condition Start: 09/11/23 10:46 Freq: Status: Active Protocol: Document 09/17/23 10:28 [facility] (Rec: 09/17/23 12:07 [facility] [id number]) Current Condition History of Current Condition Onset Date 3 months ago; chronic w/ exasterbation 3 months ago Current Complaints B foot pain; back pain History of Current Condition Pt has been exercising a lot d /t recent diagnosis of diabetes. She is managing it with diet and exercise. She started power walking and now her feet are killing. She is still walking and it increases her pain but she isn't walking as fast anymore. She lost about 25 lbs exercises. She still takes the dog for about 20 min 2x a day but that is leisurely as she just follows the dog. She is doing recumbant bike for 30 min. Back has been really good until the last couple months and now it really hurts and it spasms in back. Has been trying exercises she found online that she is unsure if help or make worse. helps her remember to stretch before getting up. A couple days hwen both back and feet were killing ehr. She saw Dr. Stone who told her to rest and she got insoles which gives some relief but not enough. She also has a carbon fiber insert which doen't fit in shoes so not using. She got over the counter inserts. She is wearing shoes only with the inserts and is now wearing shoes in the house because it is worse when barefoot. Prior Treatments and Tests R foot xray: IMPRESSION: 1. Metatarsus adductus and hallux valgus. 2. 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 3. Achilles tendon enthesopathy at the calcaneal insertion. Treatment Goals Patient/Caregiver Goals Get back to walking, not have pain when getting up PT-OP-C Subjective Start: 09/11/23 10:46 Freq: Status: Active Protocol: Document 10/10/23 11:07 AB (Rec: 10/10/23 15:35 AB [id number]) OP-PT Subjective Patient Comments Patient Comments Patient reports her back is killing her. Patient reports ankles and feet felt good post previous session. PT, Katlyn Trevino into session due to patient requesting treatment for back pain today. Superficial myofascial massage to LS and thoracic paraspinals OK'd for this session. PT-OP-D Balance Start: 09/11/23 10:46 Freq: Status: Active Protocol: Document 09/17/23 10:28 [facility] (Rec: 09/17/23 12:07 [facility] [id number]) Balance Tests Single Limb Standing Single Limb- Right 25 sec w/hip lean and drop; ER of LE to torso Single Limb- Left 10 sec lat lean PT-OP-F Manual Assessment Start: 09/11/23 10:46 Freq: Status: Active Protocol: Document 09/17/23 10:28 [facility] (Rec: 09/17/23 12:07 [facility] [id number]) Manual Assessments Joint Mobility Assessment Joint Mobility Assessment R iliac crest higher than L; equal greater trochanter; R tibial ER & femoral ER; femoral IR L PT-OP-G Mobility & Gait Start: 09/11/23 10:46 Freq: Status: Active Protocol: Document 09/17/23 10:28 [facility] (Rec: 09/17/23 12:07 [facility] [id number]) OP Gait Assessment Comments Gait Comments Dec stance time RLE; inc lat trunk leaning; RLE turning out ; dec push off B PT-OP-J Posture/Palpation/Skin Start: 09/11/23 10:46 Freq: Status: Active Protocol: Document 09/17/23 10:28 [facility] (Rec: 09/17/23 12:07 [facility] [id number]) Posture Evaluation [facility] Postural Classification System [facility] Postural Classifications Posterior/Posterior Vertebral Compression Test 0 Lumbar Protective Mechanism Left AP 0 Lumbar Protective Mechanism Right AP 0 Lumbar Protective Mechanism Left PA 0 Lumbar Protective Mechanism Right PA 0 Comments Posture Comments toes out on RLE>LLE, hallux valgus B; mild rearfoot valgus B, torso rotated L and slightly SB L, R pelvic shear PT-OP-K Range of Motion Start: 09/11/23 10:46 Freq: Status: Active Protocol: Document 09/17/23 10:28 [facility] (Rec: 09/17/23 12:07 [facility] [id number]) Lumbar Spine Range of Motion Lumbar Spine Active Percentage Flexion 10 Extension 80 Rotation Left 25 Rotation Right 10 Lateral Flexion Left 75 Lateral Flexion Right 25 Comments mid thigh w/blocked pelvis ; w /o to about 1 in above feet w/ flex-pain; pain ext and B SB & rot Ankle and Foot Goniometric Range of Motion Ankle and Foot Right Active Dorsiflexion with Knee Flexed 0 Dorsiflexion with Knee Extended 9 Plantarflexion 69 Inversion 29 Eversion 21 Comments lacking to neutral in knee ext position Left Active Dorsiflexion with Knee Flexed 0 Dorsiflexion with Knee Extended 8 Plantarflexion 50 Inversion 31 Eversion 20 Comments lacking to neutral in knee ext position PT-OP-L Special Tests Start: 09/11/23 10:46 Freq: Status: Active Protocol: Document 09/17/23 10:28 [facility] (Rec: 09/17/23 12:07 [facility] [id number]) Special Tests Lumbar Spine Special Tests Straight Leg Raise Test Results pos B Slump Test Results pain in calf/ankle B PT-OP-M Strength Start: 09/11/23 10:46 Freq: Status: Active Protocol: Document 09/17/23 10:28 [facility] (Rec: 09/17/23 12:07 [facility] [id number]) Hip Strength Hip Manual Muscle Testing Right Flexion (L2) 3 Fair Extension (S1) 3 Fair Abduction 4+ Good+ Adduction 4- Good- External Rotation 3 Fair Internal Rotation 3+ Fair+ Left Flexion (L2) 3 Fair Extension (S1) 3- Fair- Abduction 3 Fair Adduction 3 Fair External Rotation 3+ Fair+ Internal Rotation 3+ Fair+ Knee Strength Knee Manual Muscle Testing Right Flexion (S2) 4 Good Extension (L3) 4+ Good+ Left Flexion (S2) 5 Normal Extension (L3) 4 Good Ankle/Foot Strength Ankle and Foot Manual Muscle Testing Right Dorsiflexion (L4) 4+ Good+ Inversion 4- Good- Eversion (S1) 4 Good Left Dorsiflexion (L4) 4+ Good+ Inversion 4- Good- Eversion (S1) 4 Good Toe Strength Toe Manual Muscle Testing Right 2nd Toe Flexion 3 Fair Extension 4 Good Left 2nd Toe Flexion 3 Fair Extension 5 Normal Comments toes 2-5 Right Great Toe Flexion 3 Fair Extension 4 Good Left Great Toe Flexion 3 Fair Extension 5 Normal PT-OP-Q Treatments Start: 09/11/23 10:46 Freq: Status: Active Protocol: Document 10/10/23 11:07 AB (Rec: 10/10/23 15:35 AB [id number]) Therapeutic Exercises Supine Exercises ankle pumps Supine Exercise Name ankle pumps with LE's elevated Side bilateral Reps/Minutes X30 Comments Verbal cues Sitting Exercises ankle ex with band Sitting Exercise Name DF, inv, eversion Side bilateral Equipment Used level one light blue band Reps/Minutes X10 Comments VC for direction of movement, tactile cues to avoid moving knee great toe abduction Sitting Exercise Name isometric with manual resistance Side bilateral Reps/Minutes 2X10 Comments Verbal cues AROM plantar flexion Sitting Exercise Name plantar flexion arom Side bilateral Reps/Minutes X10 Comments Verbal cues to lower slowly AROM DF Sitting Exercise Name DF Side bilateral Reps/Minutes 2X10 without resistance Comments Verbal cues to lower foot slowly Manual Therapy Treatment Soft Tissue Mobilization Myofascial release Body Location LS and thoracic paraspinals R> L Mobilization Type Myofascial Release Intensity/Depth Superficial Body Position Sidelying Comments monitored for pain calf muscles Body Location bilateral calf muscles Mobilization Type Cross-Friction,Rolling Intensity/Depth Moderate Body Position Hooklying Comments Hooklying with foam roller under lower calf and with LE off edge of bolster plantar surface feet Body Location bilateral feet Mobilization Type Cross-Friction,Rolling, Strumming Intensity/Depth Moderate Body Position Hooklying Joint Mobilizations tib fib Joint bilateral LE tib fib Direction ap and pa Grade II Body Position Hooklying Reps/Duration 8 Comments monitored for pain Metatarsals Joint bilateral MT's Direction AP and PA Grade III Body Position Hooklying Reps/Duration 6 Comments monitored for pain Talocrural mobilizations Joint Talocrural Direction AP Grade II Body Position Hooklying Reps/Duration 12 Comments bilateral LE PT-OP-R Modalities Start: 09/11/23 10:46 Freq: Status: Active Protocol: Document 09/23/23 10:31 [facility] (Rec: 09/23/23 12:20 [facility] [id number]) Hot Pack/Cold Pack Treatment Cold Pack Location LB Patient Position Hooklying PT-OP-T Assessment and Plan Start: 09/11/23 10:46 Freq: Status: Active Protocol: Document 10/10/23 11:07 AB (Rec: 10/10/23 15:35 AB [id number]) Physical Therapy Assessment Goals activity Short Term Goal (STG) Pt will be able to do short walks w/dog without inc pain greater than 2/10 STG Duration 11/04 Pasteurizer Goal (LTG) Pt will be able to return to all cap coverer and vigerous walking w/o inc pain LTG Duration 12/10/23 strength Short Term Goal (STG) Pt will be indep w/HEP STG Duration 10/26/23 Pasteurizer Goal (LTG) Pt will score at least 4+/5 BLEs and 3/5 LPM in order to allow improved stability to allow greater ease w/daily activities LTG Duration 12/10/23 LEFS Impairment 32/80 Short Term Goal (STG) Pt will improve LEFS score to greater than 45/80 to show improved functional ability. STG Duration 10/26/23 Senior Living Goal (LTG) Pt will improve LEFS score to greater than 55/80 to show improved functional ability. LTG Duration 12/10/23 SLS Pasteurizer Goal (LTG) Pt will be able to do SLS for 30 sec B w/o hip drop or pain to show iproved balance and LE stability Assessment Summary Assessment Patient reports back pain is s little better, but still terrible. Patient with difficulty attempting sit to stand with UE use from mat at seat height, grimacing on attempt end of session. Mat raised for patient to achieve sit to stand without guarding. Physical Therapy Plan Frequency and Duration Frequency of Treatment 2x/Week Duration of treatment (weeks) 12 Plan of Care Start Date 09/17/23 Plan of Care End Date 12/10/23 Next Visit Focus/Plan Next Note Type Treatment Note Next Visit Plan Patient pending more tests for gall bladder, ankle/calf focus at this time. With PT clearance advance hip/core strength Manual: calcaneal and talar mobs, STM to calf and HS and sciatic n path; innominate mobs and hip mobs, possibly calf stretch standing , retro stepping vs hip flexor stretch if stretch not desmond, assess desmond to foot/ankle ex/ manual previous session
--- NOTE | 2023-10-15 09:37 | PT.OTN ---
Current Diagnoses Low back pain, unspecified (10/15/23) Muscle weakness (generalized) (10/15/23) Plantar fascial fibromatosis (10/15/23) Other enthesopathy of right foot and ankle (10/15/23) Other enthesopathy of left foot and ankle (10/15/23) Abnormal posture (10/15/23) Physical Therapy Treatment Note PT-OP-A Visit Information Start: 09/11/23 10:46 Freq: Status: Active Protocol: Document 10/15/23 08:18 [facility] (Rec: 10/15/23 09:36 [facility] [id number]) Out-Patient Physical Therapy Visit Information Visit Information Visit Type Treatment Note Visit Note 04/04 Visit Start Time 08:15 Visit Stop Time 09:00 Visit Number 8 Number of VITREO RETINAL SURGEON Visits 0 PT-OP-B Current Condition Start: 09/11/23 10:46 Freq: Status: Active Protocol: Document 09/17/23 10:28 [facility] (Rec: 09/17/23 12:07 [facility] [id number]) Current Condition History of Current Condition Onset Date 3 months ago; chronic w/ exasterbation 3 months ago Current Complaints B foot pain; back pain History of Current Condition Pt has been exercising a lot d /t recent diagnosis of diabetes. She is managing it with diet and exercise. She started power walking and now her feet are killing. She is still walking and it increases her pain but she isn't walking as fast anymore. She lost about 25 lbs exercises. She still takes the dog for about 20 min 2x a day but that is leisurely as she just follows the dog. She is doing recumbant bike for 30 min. Back has been really good until the last couple months and now it really hurts and it spasms in back. Has been trying exercises she found online that she is unsure if help or make worse. helps her remember to stretch before getting up. A couple days hwen both back and feet were killing ehr. She saw Dr. Stone who told her to rest and she got insoles which gives some relief but not enough. She also has a carbon fiber insert which doen't fit in shoes so not using. She got over the counter inserts. She is wearing shoes only with the inserts and is now wearing shoes in the house because it is worse when barefoot. Prior Treatments and Tests R foot xray: IMPRESSION: 1. Metatarsus adductus and hallux valgus. 2. 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 3. Achilles tendon enthesopathy at the calcaneal insertion. Treatment Goals Patient/Caregiver Goals Get back to walking, not have pain when getting up PT-OP-C Subjective Start: 09/11/23 10:46 Freq: Status: Active Protocol: Document 10/15/23 08:18 [facility] (Rec: 10/15/23 09:36 [facility] [id number]) OP-PT Subjective Patient Comments Patient Comments Went to ER in [place] this weekend d/t feeling worse but they found nothing and sent her home. Still nausea and R abdomen pain with some in sternum along w/ PT-OP-D Balance Start: 09/11/23 10:46 Freq: Status: Active Protocol: Document 09/17/23 10:28 [facility] (Rec: 09/17/23 12:07 [facility] [id number]) Balance Tests Single Limb Standing Single Limb- Right 25 sec w/hip lean and drop; ER of LE to torso Single Limb- Left 10 sec lat lean PT-OP-F Manual Assessment Start: 09/11/23 10:46 Freq: Status: Active Protocol: Document 09/17/23 10:28 [facility] (Rec: 09/17/23 12:07 [facility] [id number]) Manual Assessments Joint Mobility Assessment Joint Mobility Assessment R iliac crest higher than L; equal greater trochanter; R tibial ER & femoral ER; femoral IR L PT-OP-G Mobility & Gait Start: 09/11/23 10:46 Freq: Status: Active Protocol: Document 09/17/23 10:28 [facility] (Rec: 09/17/23 12:07 [facility] [id number]) OP Gait Assessment Comments Gait Comments Dec stance time RLE; inc lat trunk leaning; RLE turning out ; dec push off B PT-OP-J Posture/Palpation/Skin Start: 09/11/23 10:46 Freq: Status: Active Protocol: Document 09/17/23 10:28 [facility] (Rec: 09/17/23 12:07 [facility] [id number]) Posture Evaluation [facility] Postural Classification System [facility] Postural Classifications Posterior/Posterior Vertebral Compression Test 0 Lumbar Protective Mechanism Left AP 0 Lumbar Protective Mechanism Right AP 0 Lumbar Protective Mechanism Left PA 0 Lumbar Protective Mechanism Right PA 0 Comments Posture Comments toes out on RLE>LLE, hallux valgus B; mild rearfoot valgus B, torso rotated L and slightly SB L, R pelvic shear PT-OP-K Range of Motion Start: 09/11/23 10:46 Freq: Status: Active Protocol: Document 09/17/23 10:28 [facility] (Rec: 09/17/23 12:07 [facility] [id number]) Lumbar Spine Range of Motion Lumbar Spine Active Percentage Flexion 10 Extension 80 Rotation Left 25 Rotation Right 10 Lateral Flexion Left 75 Lateral Flexion Right 25 Comments mid thigh w/blocked pelvis ; w /o to about 1 in above feet w/ flex-pain; pain ext and B SB & rot Ankle and Foot Goniometric Range of Motion Ankle and Foot Right Active Dorsiflexion with Knee Flexed 0 Dorsiflexion with Knee Extended 9 Plantarflexion 69 Inversion 29 Eversion 21 Comments lacking to neutral in knee ext position Left Active Dorsiflexion with Knee Flexed 0 Dorsiflexion with Knee Extended 8 Plantarflexion 50 Inversion 31 Eversion 20 Comments lacking to neutral in knee ext position PT-OP-L Special Tests Start: 09/11/23 10:46 Freq: Status: Active Protocol: Document 09/17/23 10:28 [facility] (Rec: 09/17/23 12:07 [facility] [id number]) Special Tests Lumbar Spine Special Tests Straight Leg Raise Test Results pos B Slump Test Results pain in calf/ankle B PT-OP-M Strength Start: 09/11/23 10:46 Freq: Status: Active Protocol: Document 09/17/23 10:28 [facility] (Rec: 09/17/23 12:07 [facility] [id number]) Hip Strength Hip Manual Muscle Testing Right Flexion (L2) 3 Fair Extension (S1) 3 Fair Abduction 4+ Good+ Adduction 4- Good- External Rotation 3 Fair Internal Rotation 3+ Fair+ Left Flexion (L2) 3 Fair Extension (S1) 3- Fair- Abduction 3 Fair Adduction 3 Fair External Rotation 3+ Fair+ Internal Rotation 3+ Fair+ Knee Strength Knee Manual Muscle Testing Right Flexion (S2) 4 Good Extension (L3) 4+ Good+ Left Flexion (S2) 5 Normal Extension (L3) 4 Good Ankle/Foot Strength Ankle and Foot Manual Muscle Testing Right Dorsiflexion (L4) 4+ Good+ Inversion 4- Good- Eversion (S1) 4 Good Left Dorsiflexion (L4) 4+ Good+ Inversion 4- Good- Eversion (S1) 4 Good Toe Strength Toe Manual Muscle Testing Right 2nd Toe Flexion 3 Fair Extension 4 Good Left 2nd Toe Flexion 3 Fair Extension 5 Normal Comments toes 2-5 Right Great Toe Flexion 3 Fair Extension 4 Good Left Great Toe Flexion 3 Fair Extension 5 Normal PT-OP-Q Treatments Start: 09/11/23 10:46 Freq: Status: Active Protocol: Document 10/15/23 08:18 [facility] (Rec: 10/15/23 09:36 [facility] [id number]) Therapeutic Exercises Supine Exercises stretches Supine Exercise Name pirifromis Side bilateral Reps/Minutes 1 min Comments stopped d/t feeling change in throat Sitting Exercises stretch Sitting Exercise Name Thoracic rot Side bilateral Reps/Minutes 30 sec x2 B Comments cues comfortable range Standing Exercises stretch Standing Exercise Name 1. cat/cow hands on plinth 2. fwd reach @ counter Side bilateral Reps/Minutes 1.15 2. 30 sec x3 Manual Therapy Treatment Soft Tissue Mobilization calf muscles Body Location bilateral calf muscles Mobilization Type Rolling Intensity/Depth Moderate Body Position Sitting Comments w/DF plantar surface feet Body Location bilateral feet Mobilization Type Rolling Intensity/Depth Moderate Body Position Sitting Joint Mobilizations calcaneus Comments B distraction seated Self-Care/Home Management Treatment Education Other Education 10 min: Discussed to pt to do only gentle range for back and avoid core exercises until sees GI. After sitting up from supine: discussed w/pt d/t feeling of restriction in throat and change in voice/ coughing, pt should be seen by MD and recommended that ER would likely be recommended by doctors office as they are the only area testing will be able to be done. Activities Self-Care/Home Management Activities BP: 148/76; O2: 99%; HR: 71 BP after attempting gentle stretches 178/95 HR 85 O2 99% BP: 148/86 after sitting PT-OP-R Modalities Start: 09/11/23 10:46 Freq: Status: Active Protocol: Document 09/23/23 10:31 [facility] (Rec: 09/23/23 12:20 [facility] [id number]) Hot Pack/Cold Pack Treatment Cold Pack Location LB Patient Position Hooklying PT-OP-T Assessment and Plan Start: 09/11/23 10:46 Freq: Status: Active Protocol: Document 10/15/23 08:18 [facility] (Rec: 10/15/23 09:36 [facility] [id number]) Physical Therapy Assessment Goals activity Short Term Goal (STG) Pt will be able to do short walks w/dog without inc pain greater than 2/10 STG Duration 11/04 Pick And Shovel Man Goal (LTG) Pt will be able to return to all director of accreditation and vigerous walking w/o inc pain LTG Duration 12/10/23 strength Short Term Goal (STG) Pt will be indep w/HEP STG Duration 10/26/23 Assisted Goal (LTG) Pt will score at least 4+/5 BLEs and 3/5 LPM in order to allow improved stability to allow greater ease w/daily activities LTG Duration 12/10/23 LEFS Impairment 32/80 Short Term Goal (STG) Pt will improve LEFS score to greater than 45/80 to show improved functional ability. STG Duration 10/26/23 Pick And Shovel Man Goal (LTG) Pt will improve LEFS score to greater than 55/80 to show improved functional ability. LTG Duration 12/10/23 SLS Pick And Shovel Man Goal (LTG) Pt will be able to do SLS for 30 sec B w/o hip drop or pain to show iproved balance and LE stability Assessment Summary Assessment Pt brought to ER and left w/RN at ER to have further testing . At this time, plant o cancel pt's visit this week and 2 next week until she has folllow up w/GI (Saturday) and further testing to help imrpove her feeling of wellness at this time. LImited activity d/t change infeeling at throat during sesison. Physical Therapy Plan Frequency and Duration Frequency of Treatment 2x/Week Duration of treatment (weeks) 12 Plan of Care Start Date 09/17/23 Plan of Care End Date 12/10/23 Next Visit Focus/Plan Next Note Type Progress Note Next Visit Plan focus on foot and ankle pain and mobility
--- NOTE | 2023-11-14 09:46 | PT.OTRE ---
Current Diagnoses Low back pain, unspecified (11/14/23) Muscle weakness (generalized) (11/14/23) Plantar fascial fibromatosis (11/14/23) Other enthesopathy of right foot and ankle (11/14/23) Other enthesopathy of left foot and ankle (11/14/23) Abnormal posture (11/14/23) Past Medical History (Last Updated 11/08/23 @ 12:28 by Vinh Xie MD) Abnormal Pap smear of cervix Acne (1969) Anaphylactic reaction Chronic anticoagulation Diabetes type 2, controlled DVT (deep venous thrombosis) (~2013) DVT of axillary vein, chronic left Eczema Enteritis Fibroids Gastro-esophageal reflux disease with esophagitis Hayfever (1966) Hepatitis B (~1976) History of ovarian cyst History of torn meniscus of left knee (2012) Hyperlipidemia Hypothyroidism (2009) Infertility Irritable larynx syndrome Lichen planus Low back pain Lumbar degenerative disc disease Lumbar facet arthropathy Lumbar spondylosis Measles Mumps Obesity (BMI 30-39.9) Obstructive sleep apnea of adult Osteoarthritis Osteoarthritis of right knee PCOS (polycystic ovarian syndrome) (1974) Plantar warts Postoperative pulmonary embolism (2013) Retinal detachment, left (2010) Retinal detachment, right (2011) Rosacea (2008) Schatzki's ring of distal esophagus (~03/20/21) Sensorineural hearing loss, bilateral Shoulder pain Sleep apnea (~2015) Subungual hematoma of great toe Surgical History (Last Reviewed 11/08/23 @ 12:26 by Vinh Xie MD) Anesthesia History of eye surgery (02/27/11) History of eye surgery (05/15/12) History of knee replacement (05/13/14) History of sinus surgery (1987) History of surgical removal of meniscus of knee (09/03/13) History of tonsillectomy (1964) Status post delivery (12/1984) Status post delivery (06/1981) Status post endometrial ablation (2005) Status post loop electrosurgical excision procedure (LEEP) of cervix (01/2006) Status post surgical removal of neoplasm of skin (1957) Visit Care Team Role Provider Type MARIBEL Saavedra Family Provider Advanced Produce Clerk Primary Care Provider Specialty: Family Practice Address: [address] [place] [address], [id number] Email: [email or web address] Minnie Stone DPM Attending Provider Physician Referring Provider Specialty: Orthopedics Orthopedic Surgery Podiatry Address: [address] [place] [address], [place], [address] Email: [email or web address] Physical Therapy Re-Evaluation PT-OP-A Visit Information Start: 09/11/23 10:46 Freq: Status: Active Protocol: Document 11/14/23 07:28 [facility] (Rec: 11/14/23 09:46 [facility] [id number]) Out-Patient Physical Therapy Visit Information Visit Information Visit Type Re-Evaluation Visit Note 09/04 Visit Start Time 07:31 Visit Stop Time 08:15 Visit Number 9 Number of TABLE GAMES MANAGER Visits 0 PT-OP-B Current Condition Start: 09/11/23 10:46 Freq: Status: Active Protocol: Document 11/14/23 07:28 [facility] (Rec: 11/14/23 09:46 [facility] [id number]) Current Condition History of Current Condition Current Complaints B foot pain; back pain History of Current Condition 11/13-pt has been in ER mult times and seen GI doc, sports and spine clinic w/o significant findings including w/imaging to abdomen. Xray to spine showed prior degenerative changes. She is doing a blood draw today. Primary said may have a hiatal hernia. SHe has had inc w/ voice changes happening. Awaiting colonoscopy December 04. Has appt w/GI next week. 09/15-3 months ago bcak pain and foot pain got worse. Pt has been exercising a lot d/t recent diagnosis of diabetes. She is managing it with diet and exercise. She started power walking and now her feet are killing. She is still walking and it increases her pain but she isn't walking as fast anymore. She lost about 25 lbs exercises. She still takes the dog for about 20 min 2x a day but that is leisurely as she just follows the dog. She is doing recumbant bike for 30 min. Back has been really good until the last couple months and now it really hurts and it spasms in back. Has been trying exercises she found online that she is unsure if help or make worse. helps her remember to stretch before getting up. A couple days hwen both back and feet were killing ehr. She saw Dr. Stone who told her to rest and she got insoles which gives some relief but not enough. She also has a carbon fiber insert which doen't fit in shoes so not using. She got over the counter inserts. She is wearing shoes only with the inserts and is now wearing shoes in the house because it is worse when barefoot. Prior Treatments and Tests R foot xray: IMPRESSION: 1. Metatarsus adductus and hallux valgus. 2. 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 3. Achilles tendon enthesopathy at the calcaneal insertion. Treatment Goals Patient/Caregiver Goals Get back to walking, not have pain when getting up PT-OP-C Subjective Start: 09/11/23 10:46 Freq: Status: Active Protocol: Document 11/14/23 07:28 [facility] (Rec: 11/14/23 09:46 [facility] [id number]) Patient Questionnaires Lower Extremity Functional Scale LEFS Score 39/80 Oswestry Low Back Index Oswestry Score 8/50 OP-PT Pain Assessment Location LB Pain Location Details R sided thoracolumbosacral (R scap region to RSI Scale Used 2-5/10 Description Aching Frequency Constant Radiating Location R abdomen pain and central abdominal pain Variations/Patterns occ tingling down leg-but rare Pain Aggravating Factors Standing,Sitting,Bending, Lifting Other Pain Aggravating Factors rolling, twisting, sleep uncomfortable B feet Pain Location Details L>R heel and foot Description Aching,With Movement Frequency Intermittent Variations/Patterns tingling bottom of foot Pain Aggravating Factors Activity,Standing,Walking Other Pain Aggravating Factors get up after being sedentary; first in AM Other Pain Alleviating Factors stretching PT-OP-D Balance Start: 09/11/23 10:46 Freq: Status: Active Protocol: Document 11/14/23 07:28 [facility] (Rec: 11/14/23 09:46 [facility] [id number]) Balance Tests Single Limb Standing Single Limb- Right 30 sec w/slight lean Single Limb- Left 30 sec PT-OP-F Manual Assessment Start: 09/11/23 10:46 Freq: Status: Active Protocol: Document 11/14/23 07:28 [facility] (Rec: 11/14/23 09:46 [facility] [id number]) Manual Assessments Soft Tissue Assessment Soft Tissue Mobility Assessment R>L QL and ES tightness and more prominent rib angles R; breathing appears equal B Joint Mobility Assessment Joint Mobility Assessment R iliac crest higher than L; equal greater trochanter; R tibial ER & femoral ER; femoral IR L PT-OP-G Mobility & Gait Start: 09/11/23 10:46 Freq: Status: Active Protocol: Document 11/14/23 07:28 [facility] (Rec: 11/14/23 09:46 [facility] [id number]) OP Gait Assessment Comments Gait Comments dec speed w/lat leaning noted and dec push off PT-OP-J Posture/Palpation/Skin Start: 09/11/23 10:46 Freq: Status: Active Protocol: Document 09/17/23 10:28 [facility] (Rec: 09/17/23 12:07 [facility] [id number]) Posture Evaluation Slade Postural Classification System Slade Postural Classifications Posterior/Posterior Vertebral Compression Test 0 Lumbar Protective Mechanism Left AP 0 Lumbar Protective Mechanism Right AP 0 Lumbar Protective Mechanism Left PA 0 Lumbar Protective Mechanism Right PA 0 Comments Posture Comments toes out on RLE>LLE, hallux valgus B; mild rearfoot valgus B, torso rotated L and slightly SB L, R pelvic shear PT-OP-K Range of Motion Start: 09/11/23 10:46 Freq: Status: Active Protocol: Document 11/14/23 07:28 [facility] (Rec: 11/14/23 09:46 [facility] [id number]) Lumbar Spine Range of Motion Lumbar Spine Active Percentage Flexion 10 Extension 75 Rotation Left 25 Rotation Right 25 Lateral Flexion Left 50 Lateral Flexion Right 25 Comments pain w/all motions Ankle and Foot Goniometric Range of Motion Ankle and Foot Measured in Degrees Right Active Dorsiflexion with Knee Flexed 3 Dorsiflexion with Knee Extended 2 Comments lacking to neutral in knee ext position Left Active Dorsiflexion with Knee Flexed 4 Dorsiflexion with Knee Extended 2 Comments lacking to neutral in knee ext position PT-OP-L Special Tests Start: 09/11/23 10:46 Freq: Status: Active Protocol: Document 11/14/23 07:28 [facility] (Rec: 11/14/23 09:46 [facility] [id number]) Special Tests Lumbar Spine Special Tests Straight Leg Raise Comments neg mild HS tension Slump Test Results neg Other Special Tests Special Tests HR: 84 Bp 136/78 PT-OP-M Strength Start: 09/11/23 10:46 Freq: Status: Active Protocol: Document 11/14/23 07:28 [facility] (Rec: 11/14/23 09:46 [facility] [id number]) Hip Strength Hip Manual Muscle Testing Right Flexion (L2) 4 Good Abduction 5 Normal Adduction 3 Fair External Rotation 4- Good- Internal Rotation 5 Normal Comments pain knee eR; pain R hip laying on R Left Flexion (L2) 4 Good Abduction 4 Good Adduction 4- Good- External Rotation 4 Good Internal Rotation 5 Normal Knee Strength Knee Manual Muscle Testing Right Flexion (S2) 4+ Good+ Extension (L3) 5 Normal Left Flexion (S2) 4+ Good+ Extension (L3) 5 Normal Ankle/Foot Strength Ankle and Foot Manual Muscle Testing Right Dorsiflexion (L4) 5 Normal Plantarflexion (S1) 4- Good- Inversion 5 Normal Eversion (S1) 5 Normal Comments 8 heel rasies no pain Left Dorsiflexion (L4) 5 Normal Inversion 5 Normal Comments 20 heel raises no pain Toe Strength Toe Manual Muscle Testing Right 2nd Toe Flexion 3+ Fair+ Extension 5 Normal Left 2nd Toe Flexion 4 Good Extension 4 Good Comments toes 2-5 Right Great Toe Flexion 3+ Fair+ Extension 5 Normal Left Great Toe Flexion 4 Good Extension 4 Good PT-OP-Q Treatments Start: 09/11/23 10:46 Freq: Status: Active Protocol: Document 11/14/23 07:28 [facility] (Rec: 11/14/23 09:46 [facility] [id number]) Self-Care/Home Management Treatment Education Other Education 12 min: edu to pt to ask primary for referal back to specialist [place] and follow through w/surgical referal to surgeon for possible hernia; edu to consider ND if continues to hav difficulty w/o dx; edu to cont to monitor symptoms and discuss w/primary; tspine no imagine so if does not improve , discuss w/primary re: referal for tspine xray and PT may recommend if no progress PT-OP-R Modalities Start: 09/11/23 10:46 Freq: Status: Active Protocol: Document 09/23/23 10:31 [facility] (Rec: 09/23/23 12:20 [facility] [id number]) Hot Pack/Cold Pack Treatment Cold Pack Location LB Patient Position Hooklying PT-OP-T Assessment and Plan Start: 09/11/23 10:46 Freq: Status: Active Protocol: Document 11/14/23 07:28 [facility] (Rec: 11/14/23 09:46 [facility] [id number]) Physical Therapy Assessment Rehab Potential Rehabilitation Potential Good Impairments Impairments Activity Tolerance,Balance, Functional Activities, Functional Mobility,Gait,Pain, Posture,ROM,Soft Tissue Mobility,Strength,Transfers Goals ROM Museum Guide Goal (LTG) Improved DF to at least 10 deg in knee flex and 5 deg knee ext position AROM to allow for improved gait and dec foot pain LTG Duration 02/05 activity Short Term Goal (STG) Pt will be able to do short walks w/dog without inc pain greater than 2/10 11/13-had done some walking but inc pain in back STG Duration 12/24 Museum Guide Goal (LTG) Pt will be able to return to all bridge carpenter and vigerous walking w/o inc pain 11/13-pain w/household tasks LTG Duration 02/05 strength Short Term Goal (STG) Pt will be indep w/HEP STG Duration achieved advance as able Museum Guide Goal (LTG) Pt will score at least 4+/5 BLEs and 3/5 LPM in order to allow improved stability to allow greater ease w/daily activities 11/13-improved LTG Duration 02/05 LEFS Impairment 32/80 Short Term Goal (STG) Pt will improve LEFS score to greater than 45/80 to show improved functional ability. 11/13-39/80 STG Duration 12/24 Museum Guide Goal (LTG) Pt will improve LEFS score to greater than 55/80 to show improved functional ability. LTG Duration 02/05 SLS Alf Goal (LTG) Pt will be able to do SLS for 30 sec B w/o hip drop or pain to show iproved balance and LE stability LTG Duration achieved 11/13 Assessment Summary Assessment Pt returns to PT after mult other doctor visits w/o dx of nausea, tspine to SI pain R>L and change to horseness of voice. Pt is working closely w /primary at this time and did see hemodialysis patient care specialist who did encourage cont PT and recomended injections w/ possible ablation. At this time, pt is not wantign to do ablation and would like to try more conservative measures. Cont to monitor symptoms and work w/gentle PT to help w/ back pain and B foot pain at this time. Physical Therapy Plan Frequency and Duration Frequency of Treatment 2x/Week Duration of treatment (weeks) 12 Plan of Care Start Date 11/14/23 Plan of Care End Date 02/06/24 Therapeutic Interventions Therapeutic Interventions Balance Training,Gait Training ,Home Exercise Program,Joint Mobilizations,Manual Therapy, Neuromuscular Re-education, Orthotic/Prosthetic Management ,Patient/Caregiver Education, Self-Care/Home Management,Soft Tissue Mobilization,Taping, Therapeutic Activities, Therapeutic Exercises Modalities Cold Pack/Ice Massage,Electric Stimulation,Hot Packs, Infrared Therapy,Iontophoresis ,Traction- Mechanical, Ultrasound Next Visit Focus/Plan Next Note Type Treatment Note Next Visit Plan try to work manually to dec LBP and slowly progress back to exercise
--- NOTE | 2023-11-14 09:47 | PT.OPPOC ---
Physical, Occupational & Speech Therapy At [facility] Current Diagnoses Low back pain, unspecified (11/14/23) Muscle weakness (generalized) (11/14/23) Plantar fascial fibromatosis (11/14/23) Other enthesopathy of right foot and ankle (11/14/23) Other enthesopathy of left foot and ankle (11/14/23) Abnormal posture (11/14/23) Visit Care Team Role Provider Type MARIBEL Saavedra Family Provider Advanced User Acceptance Tester Primary Care Provider Specialty: Family Practice Address: [address] [place] [address], [address] Email: [email or web address] Minnie Stone DPM Attending Provider Physician Referring Provider Specialty: Orthopedics Orthopedic Surgery Podiatry Address: [address] [place] [address], [address] Email: [email or web address] Plan Of Care PT-OP-T Assessment and Plan Start: 09/11/23 10:46 Freq: Status: Active Protocol: Document 11/14/23 07:28 [facility] (Rec: 11/14/23 09:46 [facility] [id number]) Physical Therapy Assessment Rehab Potential Rehabilitation Potential Good Impairments Impairments Activity Tolerance,Balance, Functional Activities, Functional Mobility,Gait,Pain, Posture,ROM,Soft Tissue Mobility,Strength,Transfers Goals ROM Residential Goal (LTG) Improved DF to at least 10 deg in knee flex and 5 deg knee ext position AROM to allow for improved gait and dec foot pain LTG Duration 02/05 activity Short Term Goal (STG) Pt will be able to do short walks w/dog without inc pain greater than 2/10 11/13-had done some walking but inc pain in back STG Duration 12/24 Check Cashier Goal (LTG) Pt will be able to return to all buyer agent and vigerous walking w/o inc pain 11/13-pain w/household tasks LTG Duration 02/05 strength Short Term Goal (STG) Pt will be indep w/HEP STG Duration achieved advance as able Check Cashier Goal (LTG) Pt will score at least 4+/5 BLEs and 3/5 LPM in order to allow improved stability to allow greater ease w/daily activities 11/13-improved LTG Duration 02/05 LEFS Impairment 32/80 Short Term Goal (STG) Pt will improve LEFS score to greater than 45/80 to show improved functional ability. 11/13-39/80 STG Duration 12/24 Residential Goal (LTG) Pt will improve LEFS score to greater than 55/80 to show improved functional ability. LTG Duration 02/05 SLS Check Cashier Goal (LTG) Pt will be able to do SLS for 30 sec B w/o hip drop or pain to show iproved balance and LE stability LTG Duration achieved 11/13 Assessment Summary Assessment Pt returns to PT after mult other doctor visits w/o dx of nausea, tspine to SI pain R>L and change to horseness of voice. Pt is working closely w /primary at this time and did see electronic warfare specialist who did encourage cont PT and recomended injections w/ possible ablation. At this time, pt is not wantign to do ablation and would like to try more conservative measures. Cont to monitor symptoms and work w/gentle PT to help w/ back pain and B foot pain at this time. Physical Therapy Plan Frequency and Duration Frequency of Treatment 2x/Week Duration of treatment (weeks) 12 Plan of Care Start Date 11/14/23 Plan of Care End Date 02/06/24 Therapeutic Interventions Therapeutic Interventions Balance Training,Gait Training ,Home Exercise Program,Joint Mobilizations,Manual Therapy, Neuromuscular Re-education, Orthotic/Prosthetic Management ,Patient/Caregiver Education, Self-Care/Home Management,Soft Tissue Mobilization,Taping, Therapeutic Activities, Therapeutic Exercises Modalities Cold Pack/Ice Massage,Electric Stimulation,Hot Packs, Infrared Therapy,Iontophoresis ,Traction- Mechanical, Ultrasound Next Visit Focus/Plan Next Note Type Treatment Note Next Visit Plan try to work manually to dec LBP and slowly progress back to exercise Plan of Care Dates Plan of Care Start Date 11/14/23 Plan of Care End Date 02/06/24 Electronically Signed by: Katlyn Trevino, PT 11/14/23 0934 If you are in agreement with this Plan of Care, please return a signed and dated copy. I have reviewed this Plan of Care and certify that the skilled therapy services above are required to meet the patient?s needs. Physician Signature Date Printed Name and Credentials Clinical Instructor Signature Printed Name and Credentials
--- NOTE | 2023-11-21 12:24 | PT.OTN ---
Current Diagnoses Low back pain, unspecified (11/21/23) Muscle weakness (generalized) (11/21/23) Plantar fascial fibromatosis (11/21/23) Other enthesopathy of right foot and ankle (11/21/23) Other enthesopathy of left foot and ankle (11/21/23) Abnormal posture (11/21/23) Physical Therapy Treatment Note PT-OP-A Visit Information Start: 09/11/23 10:46 Freq: Status: Active Protocol: Document 11/21/23 09:02 [facility] (Rec: 11/21/23 12:24 [facility] [id number]) Out-Patient Physical Therapy Visit Information Visit Information Visit Type Treatment Note Visit Note 10/05 Visit Start Time 09:03 Visit Stop Time 09:45 Visit Number 10 Number of CAR SPOTTER Visits 0 PT-OP-B Current Condition Start: 09/11/23 10:46 Freq: Status: Active Protocol: Document 11/14/23 07:28 [facility] (Rec: 11/14/23 09:46 [facility] [id number]) Current Condition History of Current Condition Current Complaints B foot pain; back pain History of Current Condition 11/13-pt has been in ER mult times and seen GI doc, sports and spine clinic w/o significant findings including w/imaging to abdomen. Xray to spine showed prior degenerative changes. She is doing a blood draw today. Primary said may have a hiatal hernia. SHe has had inc w/ voice changes happening. Awaiting colonoscopy December 04. Has appt w/GI next week. 09/15-3 months ago bcak pain and foot pain got worse. Pt has been exercising a lot d/t recent diagnosis of diabetes. She is managing it with diet and exercise. She started power walking and now her feet are killing. She is still walking and it increases her pain but she isn't walking as fast anymore. She lost about 25 lbs exercises. She still takes the dog for about 20 min 2x a day but that is leisurely as she just follows the dog. She is doing recumbant bike for 30 min. Back has been really good until the last couple months and now it really hurts and it spasms in back. Has been trying exercises she found online that she is unsure if help or make worse. helps her remember to stretch before getting up. A couple days hwen both back and feet were killing ehr. She saw Dr. Stone who told her to rest and she got insoles which gives some relief but not enough. She also has a carbon fiber insert which doen't fit in shoes so not using. She got over the counter inserts. She is wearing shoes only with the inserts and is now wearing shoes in the house because it is worse when barefoot. Prior Treatments and Tests R foot xray: IMPRESSION: 1. Metatarsus adductus and hallux valgus. 2. 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 3. Achilles tendon enthesopathy at the calcaneal insertion. Treatment Goals Patient/Caregiver Goals Get back to walking, not have pain when getting up PT-OP-C Subjective Start: 09/11/23 10:46 Freq: Status: Active Protocol: Document 11/21/23 09:02 [facility] (Rec: 11/21/23 12:24 [facility] [id number]) OP-PT Subjective Patient Comments Patient Comments GI doctor does not think hiatal hernia surgery is needed at this time. Is awaiting for study for food flow in 2 weeks. PT-OP-D Balance Start: 09/11/23 10:46 Freq: Status: Active Protocol: Document 11/14/23 07:28 [facility] (Rec: 11/14/23 09:46 [facility] [id number]) Balance Tests Single Limb Standing Single Limb- Right 30 sec w/slight lean Single Limb- Left 30 sec PT-OP-F Manual Assessment Start: 09/11/23 10:46 Freq: Status: Active Protocol: Document 11/14/23 07:28 [facility] (Rec: 11/14/23 09:46 [facility] [id number]) Manual Assessments Soft Tissue Assessment Soft Tissue Mobility Assessment R>L QL and ES tightness and more prominent rib angles R; breathing appears equal B Joint Mobility Assessment Joint Mobility Assessment R iliac crest higher than L; equal greater trochanter; R tibial ER & femoral ER; femoral IR L PT-OP-G Mobility & Gait Start: 09/11/23 10:46 Freq: Status: Active Protocol: Document 11/14/23 07:28 [facility] (Rec: 11/14/23 09:46 [facility] [id number]) OP Gait Assessment Comments Gait Comments dec speed w/lat leaning noted and dec push off PT-OP-J Posture/Palpation/Skin Start: 09/11/23 10:46 Freq: Status: Active Protocol: Document 09/17/23 10:28 [facility] (Rec: 09/17/23 12:07 [facility] [id number]) Posture Evaluation Slade Postural Classification System Slade Postural Classifications Posterior/Posterior Vertebral Compression Test 0 Lumbar Protective Mechanism Left AP 0 Lumbar Protective Mechanism Right AP 0 Lumbar Protective Mechanism Left PA 0 Lumbar Protective Mechanism Right PA 0 Comments Posture Comments toes out on RLE>LLE, hallux valgus B; mild rearfoot valgus B, torso rotated L and slightly SB L, R pelvic shear PT-OP-K Range of Motion Start: 09/11/23 10:46 Freq: Status: Active Protocol: Document 11/14/23 07:28 [facility] (Rec: 11/14/23 09:46 [facility] [id number]) Lumbar Spine Range of Motion Lumbar Spine Active Percentage Flexion 10 Extension 75 Rotation Left 25 Rotation Right 25 Lateral Flexion Left 50 Lateral Flexion Right 25 Comments pain w/all motions Ankle and Foot Goniometric Range of Motion Ankle and Foot Right Active Dorsiflexion with Knee Flexed 3 Dorsiflexion with Knee Extended 2 Comments lacking to neutral in knee ext position Left Active Dorsiflexion with Knee Flexed 4 Dorsiflexion with Knee Extended 2 Comments lacking to neutral in knee ext position PT-OP-L Special Tests Start: 09/11/23 10:46 Freq: Status: Active Protocol: Document 11/14/23 07:28 [facility] (Rec: 11/14/23 09:46 [facility] [id number]) Special Tests Lumbar Spine Special Tests Straight Leg Raise Comments neg mild HS tension Slump Test Results neg Other Special Tests Special Tests HR: 84 Bp 136/78 PT-OP-M Strength Start: 09/11/23 10:46 Freq: Status: Active Protocol: Document 11/14/23 07:28 [facility] (Rec: 11/14/23 09:46 [facility] [id number]) Hip Strength Hip Manual Muscle Testing Right Flexion (L2) 4 Good Abduction 5 Normal Adduction 3 Fair External Rotation 4- Good- Internal Rotation 5 Normal Comments pain knee eR; pain R hip laying on R Left Flexion (L2) 4 Good Abduction 4 Good Adduction 4- Good- External Rotation 4 Good Internal Rotation 5 Normal Knee Strength Knee Manual Muscle Testing Right Flexion (S2) 4+ Good+ Extension (L3) 5 Normal Left Flexion (S2) 4+ Good+ Extension (L3) 5 Normal Ankle/Foot Strength Ankle and Foot Manual Muscle Testing Right Dorsiflexion (L4) 5 Normal Plantarflexion (S1) 4- Good- Inversion 5 Normal Eversion (S1) 5 Normal Comments 8 heel rasies no pain Left Dorsiflexion (L4) 5 Normal Inversion 5 Normal Comments 20 heel raises no pain Toe Strength Toe Manual Muscle Testing Right 2nd Toe Flexion 3+ Fair+ Extension 5 Normal Left 2nd Toe Flexion 4 Good Extension 4 Good Comments toes 2-5 Right Great Toe Flexion 3+ Fair+ Extension 5 Normal Left Great Toe Flexion 4 Good Extension 4 Good PT-OP-Q Treatments Start: 09/11/23 10:46 Freq: Status: Active Protocol: Document 11/21/23 09:02 [facility] (Rec: 11/21/23 12:24 [facility] [id number]) Therapeutic Exercises Supine Exercises breathing Supine Exercise Name diaphragmatic w/focus on lat excursion Side bilateral Reps/Minutes 10 Sidelying Exercises open book Side right Reps/Minutes 2 Comments good form Standing Exercises ext Standing Exercise Name tspine ext w/inhalation over ball Side bilateral Equipment Used playSkyn [place] ball Reps/Minutes 10 stretch Standing Exercise Name counter Side bilateral Reps/Minutes fwd 1 min; 1 min hands to L Manual Therapy Treatment Soft Tissue Mobilization lumbar paraspinals Body Location thoracic paraspinals, lats, upper lumbar Mobilization Type Rolling Intensity/Depth Moderate LB Body Location lumbar/thoracic paraspinals Mobilization Type Rolling Intensity/Depth Moderate Comments sit and s/l Joint Mobilizations thoracic Joint transverse L T7-9 FM Reps/Duration down glide R T7; downglide L T8 FM ribs Comments external torsion ribs 7-10 FM PT-OP-R Modalities Start: 09/11/23 10:46 Freq: Status: Active Protocol: Document 09/23/23 10:31 [facility] (Rec: 09/23/23 12:20 [facility] [id number]) Hot Pack/Cold Pack Treatment Cold Pack Location LB Patient Position Hooklying PT-OP-T Assessment and Plan Start: 09/11/23 10:46 Freq: Status: Active Protocol: Document 11/21/23 09:02 [facility] (Rec: 11/21/23 12:24 [facility] [id number]) Physical Therapy Assessment Goals ROM Fixed Route Bus Operator Goal (LTG) Improved DF to at least 10 deg in knee flex and 5 deg knee ext position AROM to allow for improved gait and dec foot pain LTG Duration 02/05 activity Short Term Goal (STG) Pt will be able to do short walks w/dog without inc pain greater than 2/10 11/13-had done some walking but inc pain in back STG Duration 12/24 Alf Goal (LTG) Pt will be able to return to all supplier quality specialist and vigerous walking w/o inc pain 11/13-pain w/household tasks LTG Duration 02/05 strength Short Term Goal (STG) Pt will be indep w/HEP STG Duration achieved advance as able Alf Goal (LTG) Pt will score at least 4+/5 BLEs and 3/5 LPM in order to allow improved stability to allow greater ease w/daily activities 11/13-improved LTG Duration 02/05 LEFS Impairment 32/80 Short Term Goal (STG) Pt will improve LEFS score to greater than 45/80 to show improved functional ability. 11/13-39/80 STG Duration 12/24 Alf Goal (LTG) Pt will improve LEFS score to greater than 55/80 to show improved functional ability. LTG Duration 02/05 SLS Fixed Route Bus Operator Goal (LTG) Pt will be able to do SLS for 30 sec B w/o hip drop or pain to show iproved balance and LE stability LTG Duration achieved 11/13 Assessment Summary Assessment Pt did well iwth exericses w/o inc pain. Improved rotation after manualt reatment and improved R ribcage excursion w /inhalation. Physical Therapy Plan Frequency and Duration Frequency of Treatment 2x/Week Duration of treatment (weeks) 12 Plan of Care Start Date 11/14/23 Plan of Care End Date 02/06/24 Next Visit Focus/Plan Next Note Type Treatment Note Next Visit Plan try to work manually to dec LBP and slowly progress back to exercise
--- NOTE | 2023-11-26 14:34 | PT.OTN ---
Current Diagnoses Low back pain, unspecified (11/26/23) Muscle weakness (generalized) (11/26/23) Plantar fascial fibromatosis (11/26/23) Other enthesopathy of right foot and ankle (11/26/23) Other enthesopathy of left foot and ankle (11/26/23) Abnormal posture (11/26/23) Physical Therapy Treatment Note PT-OP-A Visit Information Start: 09/11/23 10:46 Freq: Status: Active Protocol: Document 11/26/23 13:50 [facility] (Rec: 11/26/23 14:34 [facility] [id number]) Out-Patient Physical Therapy Visit Information Visit Information Visit Type Treatment Note Visit Note 11/02 Visit Start Time 09:48 Visit Stop Time 10:30 Visit Number 11 Number of MOLD WASHER Visits 0 PT-OP-B Current Condition Start: 09/11/23 10:46 Freq: Status: Active Protocol: Document 11/14/23 07:28 [facility] (Rec: 11/14/23 09:46 [facility] [id number]) Current Condition History of Current Condition Current Complaints B foot pain; back pain History of Current Condition 11/13-pt has been in ER mult times and seen GI doc, sports and spine clinic w/o significant findings including w/imaging to abdomen. Xray to spine showed prior degenerative changes. She is doing a blood draw today. Primary said may have a hiatal hernia. SHe has had inc w/ voice changes happening. Awaiting colonoscopy December 04. Has appt w/GI next week. 09/15-3 months ago bcak pain and foot pain got worse. Pt has been exercising a lot d/t recent diagnosis of diabetes. She is managing it with diet and exercise. She started power walking and now her feet are killing. She is still walking and it increases her pain but she isn't walking as fast anymore. She lost about 25 lbs exercises. She still takes the dog for about 20 min 2x a day but that is leisurely as she just follows the dog. She is doing recumbant bike for 30 min. Back has been really good until the last couple months and now it really hurts and it spasms in back. Has been trying exercises she found online that she is unsure if help or make worse. helps her remember to stretch before getting up. A couple days hwen both back and feet were killing ehr. She saw Dr. Stone who told her to rest and she got insoles which gives some relief but not enough. She also has a carbon fiber insert which doen't fit in shoes so not using. She got over the counter inserts. She is wearing shoes only with the inserts and is now wearing shoes in the house because it is worse when barefoot. Prior Treatments and Tests R foot xray: IMPRESSION: 1. Metatarsus adductus and hallux valgus. 2. 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 3. Achilles tendon enthesopathy at the calcaneal insertion. Treatment Goals Patient/Caregiver Goals Get back to walking, not have pain when getting up PT-OP-C Subjective Start: 09/11/23 10:46 Freq: Status: Active Protocol: Document 11/26/23 13:50 [facility] (Rec: 11/26/23 14:34 [facility] [id number]) OP-PT Subjective Patient Comments Patient Comments pt reports relief from last session PT-OP-D Balance Start: 09/11/23 10:46 Freq: Status: Active Protocol: Document 11/14/23 07:28 [facility] (Rec: 11/14/23 09:46 [facility] [id number]) Balance Tests Single Limb Standing Single Limb- Right 30 sec w/slight lean Single Limb- Left 30 sec PT-OP-F Manual Assessment Start: 09/11/23 10:46 Freq: Status: Active Protocol: Document 11/14/23 07:28 [facility] (Rec: 11/14/23 09:46 [facility] [id number]) Manual Assessments Soft Tissue Assessment Soft Tissue Mobility Assessment R>L QL and ES tightness and more prominent rib angles R; breathing appears equal B Joint Mobility Assessment Joint Mobility Assessment R iliac crest higher than L; equal greater trochanter; R tibial ER & femoral ER; femoral IR L PT-OP-G Mobility & Gait Start: 09/11/23 10:46 Freq: Status: Active Protocol: Document 11/14/23 07:28 [facility] (Rec: 11/14/23 09:46 [facility] [id number]) OP Gait Assessment Comments Gait Comments dec speed w/lat leaning noted and dec push off PT-OP-J Posture/Palpation/Skin Start: 09/11/23 10:46 Freq: Status: Active Protocol: Document 09/17/23 10:28 [facility] (Rec: 09/17/23 12:07 [facility] [id number]) Posture Evaluation [facility] Postural Classification System Slade Postural Classifications Posterior/Posterior Vertebral Compression Test 0 Lumbar Protective Mechanism Left AP 0 Lumbar Protective Mechanism Right AP 0 Lumbar Protective Mechanism Left PA 0 Lumbar Protective Mechanism Right PA 0 Comments Posture Comments toes out on RLE>LLE, hallux valgus B; mild rearfoot valgus B, torso rotated L and slightly SB L, R pelvic shear PT-OP-K Range of Motion Start: 09/11/23 10:46 Freq: Status: Active Protocol: Document 11/14/23 07:28 [facility] (Rec: 11/14/23 09:46 [facility] [id number]) Lumbar Spine Range of Motion Lumbar Spine Active Percentage Flexion 10 Extension 75 Rotation Left 25 Rotation Right 25 Lateral Flexion Left 50 Lateral Flexion Right 25 Comments pain w/all motions Ankle and Foot Goniometric Range of Motion Ankle and Foot Right Active Dorsiflexion with Knee Flexed 3 Dorsiflexion with Knee Extended 2 Comments lacking to neutral in knee ext position Left Active Dorsiflexion with Knee Flexed 4 Dorsiflexion with Knee Extended 2 Comments lacking to neutral in knee ext position PT-OP-L Special Tests Start: 09/11/23 10:46 Freq: Status: Active Protocol: Document 11/14/23 07:28 [facility] (Rec: 11/14/23 09:46 [facility] [id number]) Special Tests Lumbar Spine Special Tests Straight Leg Raise Comments neg mild HS tension Slump Test Results neg Other Special Tests Special Tests HR: 84 Bp 136/78 PT-OP-M Strength Start: 09/11/23 10:46 Freq: Status: Active Protocol: Document 11/14/23 07:28 [facility] (Rec: 11/14/23 09:46 [facility] [id number]) Hip Strength Hip Manual Muscle Testing Right Flexion (L2) 4 Good Abduction 5 Normal Adduction 3 Fair External Rotation 4- Good- Internal Rotation 5 Normal Comments pain knee eR; pain R hip laying on R Left Flexion (L2) 4 Good Abduction 4 Good Adduction 4- Good- External Rotation 4 Good Internal Rotation 5 Normal Knee Strength Knee Manual Muscle Testing Right Flexion (S2) 4+ Good+ Extension (L3) 5 Normal Left Flexion (S2) 4+ Good+ Extension (L3) 5 Normal Ankle/Foot Strength Ankle and Foot Manual Muscle Testing Right Dorsiflexion (L4) 5 Normal Plantarflexion (S1) 4- Good- Inversion 5 Normal Eversion (S1) 5 Normal Comments 8 heel rasies no pain Left Dorsiflexion (L4) 5 Normal Inversion 5 Normal Comments 20 heel raises no pain Toe Strength Toe Manual Muscle Testing Right 2nd Toe Flexion 3+ Fair+ Extension 5 Normal Left 2nd Toe Flexion 4 Good Extension 4 Good Comments toes 2-5 Right Great Toe Flexion 3+ Fair+ Extension 5 Normal Left Great Toe Flexion 4 Good Extension 4 Good PT-OP-Q Treatments Start: 09/11/23 10:46 Freq: Status: Active Protocol: Document 11/26/23 13:50 [facility] (Rec: 11/26/23 14:34 [facility] [id number]) Therapeutic Exercises Supine Exercises breathing Supine Exercise Name diaphragmatic w/focus on lat excursion Side bilateral Reps/Minutes 10 Standing Exercises ext Standing Exercise Name tspine ext w/inhalation over ball Side bilateral Equipment Used playgorund ball Reps/Minutes 10 stretch Standing Exercise Name counter Side bilateral Reps/Minutes fwd 1 min; 1 min hands to L Manual Therapy Treatment Soft Tissue Mobilization LB Body Location lumbar/thoracic paraspinals, thoracolumbar fascia Mobilization Type Rolling Intensity/Depth Moderate Comments sit and s/l -manual and w/ plunger Joint Mobilizations thoracic Comments down glide R T6 FM ribs Comments external torsion ribs 7-10 FM PT-OP-R Modalities Start: 09/11/23 10:46 Freq: Status: Active Protocol: Document 09/23/23 10:31 [facility] (Rec: 09/23/23 12:20 [facility] [id number]) Hot Pack/Cold Pack Treatment Cold Pack Location LB Patient Position Hooklying PT-OP-T Assessment and Plan Start: 09/11/23 10:46 Freq: Status: Active Protocol: Document 11/26/23 13:50 [facility] (Rec: 11/26/23 14:34 [facility] [id number]) Physical Therapy Assessment Goals ROM Sales And Service Consultant Goal (LTG) Improved DF to at least 10 deg in knee flex and 5 deg knee ext position AROM to allow for improved gait and dec foot pain LTG Duration 02/05 activity Short Term Goal (STG) Pt will be able to do short walks w/dog without inc pain greater than 2/10 11/13-had done some walking but inc pain in back STG Duration 12/24 Senior Care Goal (LTG) Pt will be able to return to all verifier and vigerous walking w/o inc pain 11/13-pain w/household tasks LTG Duration 02/05 strength Short Term Goal (STG) Pt will be indep w/HEP STG Duration achieved advance as able Senior Care Goal (LTG) Pt will score at least 4+/5 BLEs and 3/5 LPM in order to allow improved stability to allow greater ease w/daily activities 11/13-improved LTG Duration 02/05 LEFS Impairment 32/80 Short Term Goal (STG) Pt will improve LEFS score to greater than 45/80 to show improved functional ability. 11/13-39/80 STG Duration 12/24 Sales And Service Consultant Goal (LTG) Pt will improve LEFS score to greater than 55/80 to show improved functional ability. LTG Duration 02/05 SLS Sales And Service Consultant Goal (LTG) Pt will be able to do SLS for 30 sec B w/o hip drop or pain to show iproved balance and LE stability LTG Duration achieved 11/13 Assessment Summary Assessment Pt had improved rotation after manual to R from about 40% to 80% but still pain at end range and R SB from 50% to 75% . She did well withe exercises w/min cues. Physical Therapy Plan Frequency and Duration Frequency of Treatment 2x/Week Duration of treatment (weeks) 12 Plan of Care Start Date 11/14/23 Plan of Care End Date 02/06/24 Next Visit Focus/Plan Next Note Type Treatment Note Next Visit Plan try to work manually to dec thoracic mobility and pain and exercise for mobility
--- NOTE | 2023-12-04 08:38 | PT.OTN ---
Current Diagnoses Low back pain, unspecified (12/04/23) Muscle weakness (generalized) (12/04/23) Plantar fascial fibromatosis (12/04/23) Other enthesopathy of right foot and ankle (12/04/23) Other enthesopathy of left foot and ankle (12/04/23) Abnormal posture (12/04/23) Physical Therapy Treatment Note PT-OP-A Visit Information Start: 09/11/23 10:46 Freq: Status: Active Protocol: Document 12/04/23 07:30 [facility] (Rec: 12/04/23 08:37 [facility] [id number]) Out-Patient Physical Therapy Visit Information Visit Information Visit Type Treatment Note Visit Note 12/03 Visit Start Time 07:33 Visit Stop Time 08:20 Visit Number 12 Number of DIVISION ORDER TECHNICIAN Visits 0 PT-OP-B Current Condition Start: 09/11/23 10:46 Freq: Status: Active Protocol: Document 11/14/23 07:28 [facility] (Rec: 11/14/23 09:46 [facility] [id number]) Current Condition History of Current Condition Current Complaints B foot pain; back pain History of Current Condition 11/13-pt has been in ER mult times and seen GI doc, sports and spine clinic w/o significant findings including w/imaging to abdomen. Xray to spine showed prior degenerative changes. She is doing a blood draw today. Primary said may have a hiatal hernia. SHe has had inc w/ voice changes happening. Awaiting colonoscopy December 04. Has appt w/GI next week. 09/15-3 months ago bcak pain and foot pain got worse. Pt has been exercising a lot d/t recent diagnosis of diabetes. She is managing it with diet and exercise. She started power walking and now her feet are killing. She is still walking and it increases her pain but she isn't walking as fast anymore. She lost about 25 lbs exercises. She still takes the dog for about 20 min 2x a day but that is leisurely as she just follows the dog. She is doing recumbant bike for 30 min. Back has been really good until the last couple months and now it really hurts and it spasms in back. Has been trying exercises she found online that she is unsure if help or make worse. helps her remember to stretch before getting up. A couple days hwen both back and feet were killing ehr. She saw Dr. Stone who told her to rest and she got insoles which gives some relief but not enough. She also has a carbon fiber insert which doen't fit in shoes so not using. She got over the counter inserts. She is wearing shoes only with the inserts and is now wearing shoes in the house because it is worse when barefoot. Prior Treatments and Tests R foot xray: IMPRESSION: 1. Metatarsus adductus and hallux valgus. 2. 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 3. Achilles tendon enthesopathy at the calcaneal insertion. Treatment Goals Patient/Caregiver Goals Get back to walking, not have pain when getting up PT-OP-C Subjective Start: 09/11/23 10:46 Freq: Status: Active Protocol: Document 12/04/23 07:30 [facility] (Rec: 12/04/23 08:37 [facility] [id number]) OP-PT Subjective Patient Comments Patient Comments Had the food transit test and that was fine. Tomorrow is colonoscopy. Back pain is about 3/10. Bending over is what makes her feel worse ( more nausea & inc back pain). Feet are better. FLare up occ. Just been doing dog walks 2x/ day. No fast walkign though PT-OP-D Balance Start: 09/11/23 10:46 Freq: Status: Active Protocol: Document 11/14/23 07:28 [facility] (Rec: 11/14/23 09:46 [facility] [id number]) Balance Tests Single Limb Standing Single Limb- Right 30 sec w/slight lean Single Limb- Left 30 sec PT-OP-F Manual Assessment Start: 09/11/23 10:46 Freq: Status: Active Protocol: Document 11/14/23 07:28 [facility] (Rec: 11/14/23 09:46 [facility] [id number]) Manual Assessments Soft Tissue Assessment Soft Tissue Mobility Assessment R>L QL and ES tightness and more prominent rib angles R; breathing appears equal B Joint Mobility Assessment Joint Mobility Assessment R iliac crest higher than L; equal greater trochanter; R tibial ER & femoral ER; femoral IR L PT-OP-G Mobility & Gait Start: 09/11/23 10:46 Freq: Status: Active Protocol: Document 11/14/23 07:28 [facility] (Rec: 11/14/23 09:46 [facility] [id number]) OP Gait Assessment Comments Gait Comments dec speed w/lat leaning noted and dec push off PT-OP-J Posture/Palpation/Skin Start: 09/11/23 10:46 Freq: Status: Active Protocol: Document 09/17/23 10:28 [facility] (Rec: 09/17/23 12:07 [facility] [id number]) Posture Evaluation [facility] Postural Classification System [place] Postural Classifications Posterior/Posterior Vertebral Compression Test 0 Lumbar Protective Mechanism Left AP 0 Lumbar Protective Mechanism Right AP 0 Lumbar Protective Mechanism Left PA 0 Lumbar Protective Mechanism Right PA 0 Comments Posture Comments toes out on RLE>LLE, hallux valgus B; mild rearfoot valgus B, torso rotated L and slightly SB L, R pelvic shear PT-OP-K Range of Motion Start: 09/11/23 10:46 Freq: Status: Active Protocol: Document 11/14/23 07:28 [facility] (Rec: 11/14/23 09:46 [facility] [id number]) Lumbar Spine Range of Motion Lumbar Spine Active Percentage Flexion 10 Extension 75 Rotation Left 25 Rotation Right 25 Lateral Flexion Left 50 Lateral Flexion Right 25 Comments pain w/all motions Ankle and Foot Goniometric Range of Motion Ankle and Foot Right Active Dorsiflexion with Knee Flexed 3 Dorsiflexion with Knee Extended 2 Comments lacking to neutral in knee ext position Left Active Dorsiflexion with Knee Flexed 4 Dorsiflexion with Knee Extended 2 Comments lacking to neutral in knee ext position PT-OP-L Special Tests Start: 09/11/23 10:46 Freq: Status: Active Protocol: Document 11/14/23 07:28 [facility] (Rec: 11/14/23 09:46 [facility] [id number]) Special Tests Lumbar Spine Special Tests Straight Leg Raise Comments neg mild HS tension Slump Test Results neg Other Special Tests Special Tests HR: 84 Bp 136/78 PT-OP-M Strength Start: 09/11/23 10:46 Freq: Status: Active Protocol: Document 11/14/23 07:28 [facility] (Rec: 11/14/23 09:46 [facility] [id number]) Hip Strength Hip Manual Muscle Testing Right Flexion (L2) 4 Good Abduction 5 Normal Adduction 3 Fair External Rotation 4- Good- Internal Rotation 5 Normal Comments pain knee eR; pain R hip laying on R Left Flexion (L2) 4 Good Abduction 4 Good Adduction 4- Good- External Rotation 4 Good Internal Rotation 5 Normal Knee Strength Knee Manual Muscle Testing Right Flexion (S2) 4+ Good+ Extension (L3) 5 Normal Left Flexion (S2) 4+ Good+ Extension (L3) 5 Normal Ankle/Foot Strength Ankle and Foot Manual Muscle Testing Right Dorsiflexion (L4) 5 Normal Plantarflexion (S1) 4- Good- Inversion 5 Normal Eversion (S1) 5 Normal Comments 8 heel rasies no pain Left Dorsiflexion (L4) 5 Normal Inversion 5 Normal Comments 20 heel raises no pain Toe Strength Toe Manual Muscle Testing Right 2nd Toe Flexion 3+ Fair+ Extension 5 Normal Left 2nd Toe Flexion 4 Good Extension 4 Good Comments toes 2-5 Right Great Toe Flexion 3+ Fair+ Extension 5 Normal Left Great Toe Flexion 4 Good Extension 4 Good PT-OP-Q Treatments Start: 09/11/23 10:46 Freq: Status: Active Protocol: Document 12/04/23 07:30 [facility] (Rec: 12/04/23 08:37 [facility] [id number]) Therapeutic Exercises Sitting Exercises AROM Sitting Exercise Name 1. pelvic tilts 2. rot B Side bilateral Reps/Minutes 10 ea Standing Exercises stretch Standing Exercise Name hands on plinth-angry cat to lean back Side bilateral Reps/Minutes 2 min total Manual Therapy Treatment Soft Tissue Mobilization Myofascial release Body Location LS and thoracic paraspinals R> L Mobilization Type Myofascial Release Intensity/Depth Superficial Body Position Sidelying lumbar paraspinals Body Location thoracic paraspinals, lumbar paraspinals & QL Mobilization Type Rolling,Strumming Intensity/Depth Moderate Body Position Sidelying Joint Mobilizations lumbar Comments gapping L5-S1; L4-5 FM s/l innominate Comments L add FM Self-Care/Home Management Treatment Education Other Education 15 min: BP 145/78;discuss w/pt re: talking to her primary about inc in nausea w/bending over and sitting up in bed which was notedt his session. Encouraged pt to always remain sitting if gets dizzy/nausea. Asked if pt has seen cardio and pt has not. Encouraged for pt to discuss w/provider PT-OP-R Modalities Start: 09/11/23 10:46 Freq: Status: Active Protocol: Document 09/23/23 10:31 [facility] (Rec: 09/23/23 12:20 [facility] [id number]) Hot Pack/Cold Pack Treatment Cold Pack Location LB Patient Position Hooklying PT-OP-T Assessment and Plan Start: 09/11/23 10:46 Freq: Status: Active Protocol: Document 12/04/23 07:30 [facility] (Rec: 12/04/23 08:37 [facility] [id number]) Physical Therapy Assessment Goals ROM Intermediate Goal (LTG) Improved DF to at least 10 deg in knee flex and 5 deg knee ext position AROM to allow for improved gait and dec foot pain LTG Duration 02/05 activity Short Term Goal (STG) Pt will be able to do short walks w/dog without inc pain greater than 2/10 11/13-had done some walking but inc pain in back STG Duration 12/24 Intermediate Goal (LTG) Pt will be able to return to all service attendant cafeteria and vigerous walking w/o inc pain 11/13-pain w/household tasks LTG Duration 02/05 strength Short Term Goal (STG) Pt will be indep w/HEP STG Duration achieved advance as able Curriculum Development Specialist Goal (LTG) Pt will score at least 4+/5 BLEs and 3/5 LPM in order to allow improved stability to allow greater ease w/daily activities 11/13-improved LTG Duration 02/05 LEFS Impairment 32/80 Short Term Goal (STG) Pt will improve LEFS score to greater than 45/80 to show improved functional ability. 11/13-39/80 STG Duration 12/24 Curriculum Development Specialist Goal (LTG) Pt will improve LEFS score to greater than 55/80 to show improved functional ability. LTG Duration 02/05 SLS Curriculum Development Specialist Goal (LTG) Pt will be able to do SLS for 30 sec B w/o hip drop or pain to show iproved balance and LE stability LTG Duration achieved 11/13 Assessment Summary Assessment Pt has signficant limitations in flex w/R>L soft tissue restriction w/improvedlumbar mobility w/mobilziation and soft tissue work but not tested further in upright d/t nausea/dizziness when upright and bending. Pt felt dizziness and nausea upon sitting up and was given water and encouraged not to move from sitting until subsides and educated to talk to doctro about this. Physical Therapy Plan Frequency and Duration Frequency of Treatment 2x/Week Duration of treatment (weeks) 12 Plan of Care Start Date 11/14/23 Plan of Care End Date 02/06/24 Next Visit Focus/Plan Next Note Type Treatment Note Next Visit Plan work on mobility of spine to improve flex and rot; work on L hip mobility for don/doff shoes
--- NOTE | 2023-12-11 10:32 | PT.OTN ---
Current Diagnoses Low back pain, unspecified (12/11/23) Muscle weakness (generalized) (12/11/23) Plantar fascial fibromatosis (12/11/23) Other enthesopathy of right foot and ankle (12/11/23) Other enthesopathy of left foot and ankle (12/11/23) Abnormal posture (12/11/23) Physical Therapy Treatment Note PT-OP-A Visit Information Start: 09/11/23 10:46 Freq: Status: Active Protocol: Document 12/11/23 09:48 [facility] (Rec: 12/11/23 10:32 [facility] [id number]) Out-Patient Physical Therapy Visit Information Visit Information Visit Type Treatment Note Visit Note 01/02 Visit Start Time 09:49 Visit Stop Time 10:29 Visit Number 13 Number of FUNDRAISING SPECIALIST Visits 0 PT-OP-B Current Condition Start: 09/11/23 10:46 Freq: Status: Active Protocol: Document 11/14/23 07:28 [facility] (Rec: 11/14/23 09:46 [facility] [id number]) Current Condition History of Current Condition Current Complaints B foot pain; back pain History of Current Condition 11/13-pt has been in ER mult times and seen GI doc, sports and spine clinic w/o significant findings including w/imaging to abdomen. Xray to spine showed prior degenerative changes. She is doing a blood draw today. Primary said may have a hiatal hernia. SHe has had inc w/ voice changes happening. Awaiting colonoscopy December 04. Has appt w/GI next week. 09/15-3 months ago bcak pain and foot pain got worse. Pt has been exercising a lot d/t recent diagnosis of diabetes. She is managing it with diet and exercise. She started power walking and now her feet are killing. She is still walking and it increases her pain but she isn't walking as fast anymore. She lost about 25 lbs exercises. She still takes the dog for about 20 min 2x a day but that is leisurely as she just follows the dog. She is doing recumbant bike for 30 min. Back has been really good until the last couple months and now it really hurts and it spasms in back. Has been trying exercises she found online that she is unsure if help or make worse. helps her remember to stretch before getting up. A couple days hwen both back and feet were killing ehr. She saw Dr. Stone who told her to rest and she got insoles which gives some relief but not enough. She also has a carbon fiber insert which doen't fit in shoes so not using. She got over the counter inserts. She is wearing shoes only with the inserts and is now wearing shoes in the house because it is worse when barefoot. Prior Treatments and Tests R foot xray: IMPRESSION: 1. Metatarsus adductus and hallux valgus. 2. 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 3. Achilles tendon enthesopathy at the calcaneal insertion. Treatment Goals Patient/Caregiver Goals Get back to walking, not have pain when getting up PT-OP-C Subjective Start: 09/11/23 10:46 Freq: Status: Active Protocol: Document 12/11/23 09:48 [facility] (Rec: 12/11/23 10:32 [facility] [id number]) OP-PT Subjective Patient Comments Patient Comments Colonoscopy was normal. She is scheduled for Echo and doppler . nausea cont and feels no different w/double of omeprozole. back has been okay. Gets worse at end of day . Feet pretty good. bother more at end of day se w/ standing a lot PT-OP-D Balance Start: 09/11/23 10:46 Freq: Status: Active Protocol: Document 11/14/23 07:28 [facility] (Rec: 11/14/23 09:46 [facility] [id number]) Balance Tests Single Limb Standing Single Limb- Right 30 sec w/slight lean Single Limb- Left 30 sec PT-OP-F Manual Assessment Start: 09/11/23 10:46 Freq: Status: Active Protocol: Document 11/14/23 07:28 [facility] (Rec: 11/14/23 09:46 [facility] [id number]) Manual Assessments Soft Tissue Assessment Soft Tissue Mobility Assessment R>L QL and ES tightness and more prominent rib angles R; breathing appears equal B Joint Mobility Assessment Joint Mobility Assessment R iliac crest higher than L; equal greater trochanter; R tibial ER & femoral ER; femoral IR L PT-OP-G Mobility & Gait Start: 09/11/23 10:46 Freq: Status: Active Protocol: Document 11/14/23 07:28 [facility] (Rec: 11/14/23 09:46 [facility] [id number]) OP Gait Assessment Comments Gait Comments dec speed w/lat leaning noted and dec push off PT-OP-J Posture/Palpation/Skin Start: 09/11/23 10:46 Freq: Status: Active Protocol: Document 09/17/23 10:28 [facility] (Rec: 09/17/23 12:07 [facility] [id number]) Posture Evaluation [facility] Postural Classification System [facility] Postural Classifications Posterior/Posterior Vertebral Compression Test 0 Lumbar Protective Mechanism Left AP 0 Lumbar Protective Mechanism Right AP 0 Lumbar Protective Mechanism Left PA 0 Lumbar Protective Mechanism Right PA 0 Comments Posture Comments toes out on RLE>LLE, hallux valgus B; mild rearfoot valgus B, torso rotated L and slightly SB L, R pelvic shear PT-OP-K Range of Motion Start: 09/11/23 10:46 Freq: Status: Active Protocol: Document 11/14/23 07:28 [facility] (Rec: 11/14/23 09:46 [facility] [id number]) Lumbar Spine Range of Motion Lumbar Spine Active Percentage Flexion 10 Extension 75 Rotation Left 25 Rotation Right 25 Lateral Flexion Left 50 Lateral Flexion Right 25 Comments pain w/all motions Ankle and Foot Goniometric Range of Motion Ankle and Foot Right Active Dorsiflexion with Knee Flexed 3 Dorsiflexion with Knee Extended 2 Comments lacking to neutral in knee ext position Left Active Dorsiflexion with Knee Flexed 4 Dorsiflexion with Knee Extended 2 Comments lacking to neutral in knee ext position PT-OP-L Special Tests Start: 09/11/23 10:46 Freq: Status: Active Protocol: Document 11/14/23 07:28 [facility] (Rec: 11/14/23 09:46 [facility] [id number]) Special Tests Lumbar Spine Special Tests Straight Leg Raise Comments neg mild HS tension Slump Test Results neg Other Special Tests Special Tests HR: 84 Bp 136/78 PT-OP-M Strength Start: 09/11/23 10:46 Freq: Status: Active Protocol: Document 11/14/23 07:28 [facility] (Rec: 11/14/23 09:46 [facility] [id number]) Hip Strength Hip Manual Muscle Testing Right Flexion (L2) 4 Good Abduction 5 Normal Adduction 3 Fair External Rotation 4- Good- Internal Rotation 5 Normal Comments pain knee eR; pain R hip laying on R Left Flexion (L2) 4 Good Abduction 4 Good Adduction 4- Good- External Rotation 4 Good Internal Rotation 5 Normal Knee Strength Knee Manual Muscle Testing Right Flexion (S2) 4+ Good+ Extension (L3) 5 Normal Left Flexion (S2) 4+ Good+ Extension (L3) 5 Normal Ankle/Foot Strength Ankle and Foot Manual Muscle Testing Right Dorsiflexion (L4) 5 Normal Plantarflexion (S1) 4- Good- Inversion 5 Normal Eversion (S1) 5 Normal Comments 8 heel rasies no pain Left Dorsiflexion (L4) 5 Normal Inversion 5 Normal Comments 20 heel raises no pain Toe Strength Toe Manual Muscle Testing Right 2nd Toe Flexion 3+ Fair+ Extension 5 Normal Left 2nd Toe Flexion 4 Good Extension 4 Good Comments toes 2-5 Right Great Toe Flexion 3+ Fair+ Extension 5 Normal Left Great Toe Flexion 4 Good Extension 4 Good PT-OP-Q Treatments Start: 09/11/23 10:46 Freq: Status: Active Protocol: Document 12/11/23 09:48 [facility] (Rec: 12/11/23 10:32 [facility] [id number]) Therapeutic Exercises Supine Exercises core Supine Exercise Name attempted marches w/progress to scissor Side bilateral Reps/Minutes 3 min Comments stopped d/t inc pressure into throat Sitting Exercises core Sitting Exercise Name sit backs Reps/Minutes 15 Standing Exercises rows Side bilateral Equipment Used orange Reps/Minutes 12 paloff press Side bilateral Equipment Used orange band 2 bands Reps/Minutes 12 ea Manual Therapy Treatment Soft Tissue Mobilization lumbar paraspinals Body Location L>R Mobilization Type Rolling,Strumming Intensity/Depth Moderate Comments w/post dep Joint Mobilizations thoracic Comments transverse L T7-10 FM ribs Comments R ribs SB R 7-10 FM innominate Comments L add FM & IR FM PT-OP-R Modalities Start: 09/11/23 10:46 Freq: Status: Active Protocol: Document 09/23/23 10:31 [facility] (Rec: 09/23/23 12:20 [facility] [id number]) Hot Pack/Cold Pack Treatment Cold Pack Location LB Patient Position Hooklying PT-OP-T Assessment and Plan Start: 09/11/23 10:46 Freq: Status: Active Protocol: Document 12/11/23 09:48 [facility] (Rec: 12/11/23 10:32 [facility] [id number]) Physical Therapy Assessment Goals ROM Usp Goal (LTG) Improved DF to at least 10 deg in knee flex and 5 deg knee ext position AROM to allow for improved gait and dec foot pain LTG Duration 02/05 activity Short Term Goal (STG) Pt will be able to do short walks w/dog without inc pain greater than 2/10 11/13-had done some walking but inc pain in back STG Duration 12/24 Director Music Goal (LTG) Pt will be able to return to all public relations representative and vigerous walking w/o inc pain 11/13-pain w/household tasks LTG Duration 02/05 strength Short Term Goal (STG) Pt will be indep w/HEP STG Duration achieved advance as able Director Music Goal (LTG) Pt will score at least 4+/5 BLEs and 3/5 LPM in order to allow improved stability to allow greater ease w/daily activities 11/13-improved LTG Duration 02/05 LEFS Impairment 32/80 Short Term Goal (STG) Pt will improve LEFS score to greater than 45/80 to show improved functional ability. 11/13-39/80 STG Duration 12/24 Usp Goal (LTG) Pt will improve LEFS score to greater than 55/80 to show improved functional ability. LTG Duration 02/05 SLS Usp Goal (LTG) Pt will be able to do SLS for 30 sec B w/o hip drop or pain to show iproved balance and LE stability LTG Duration achieved 11/13 Assessment Summary Assessment Pt tolerates core in standing/ sitting better w/o pressure into throat. She had imrpoved B rotation from about 40% to about 80% B and improved R SB to full w/just slight pain at end range after manual Physical Therapy Plan Frequency and Duration Frequency of Treatment 2x/Week Duration of treatment (weeks) 12 Plan of Care Start Date 11/14/23 Plan of Care End Date 02/06/24 Next Visit Focus/Plan Next Note Type Treatment Note Next Visit Plan work on mobility of spine to improve flex and rot; work on L hip mobility for don/doff shoes
--- NOTE | 2023-12-19 13:09 | PT.OTN ---
Current Diagnoses Low back pain, unspecified (12/19/23) Muscle weakness (generalized) (12/19/23) Plantar fascial fibromatosis (12/19/23) Other enthesopathy of right foot and ankle (12/19/23) Other enthesopathy of left foot and ankle (12/19/23) Abnormal posture (12/19/23) Physical Therapy Treatment Note PT-OP-A Visit Information Start: 09/11/23 10:46 Freq: Status: Active Protocol: Document 12/19/23 09:04 [facility] (Rec: 12/19/23 12:30 [facility] [id number]) Out-Patient Physical Therapy Visit Information Visit Information Visit Type Progress Note Visit Note 09/04 Visit Start Time 09:04 Visit Stop Time 09:44 Visit Number 14 Number of VICE PRESIDENT OF CUSTOMER SERVICE Visits 0 PT-OP-B Current Condition Start: 09/11/23 10:46 Freq: Status: Active Protocol: Document 11/14/23 07:28 [facility] (Rec: 11/14/23 09:46 [facility] [id number]) Current Condition History of Current Condition Current Complaints B foot pain; back pain History of Current Condition 11/13-pt has been in ER mult times and seen GI doc, sports and spine clinic w/o significant findings including w/imaging to abdomen. Xray to spine showed prior degenerative changes. She is doing a blood draw today. Primary said may have a hiatal hernia. SHe has had inc w/ voice changes happening. Awaiting colonoscopy December 04. Has appt w/GI next week. 09/15-3 months ago bcak pain and foot pain got worse. Pt has been exercising a lot d/t recent diagnosis of diabetes. She is managing it with diet and exercise. She started power walking and now her feet are killing. She is still walking and it increases her pain but she isn't walking as fast anymore. She lost about 25 lbs exercises. She still takes the dog for about 20 min 2x a day but that is leisurely as she just follows the dog. She is doing recumbant bike for 30 min. Back has been really good until the last couple months and now it really hurts and it spasms in back. Has been trying exercises she found online that she is unsure if help or make worse. helps her remember to stretch before getting up. A couple days hwen both back and feet were killing ehr. She saw Dr. Stone who told her to rest and she got insoles which gives some relief but not enough. She also has a carbon fiber insert which doen't fit in shoes so not using. She got over the counter inserts. She is wearing shoes only with the inserts and is now wearing shoes in the house because it is worse when barefoot. Prior Treatments and Tests R foot xray: IMPRESSION: 1. Metatarsus adductus and hallux valgus. 2. 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 3. Achilles tendon enthesopathy at the calcaneal insertion. Treatment Goals Patient/Caregiver Goals Get back to walking, not have pain when getting up PT-OP-C Subjective Start: 09/11/23 10:46 Freq: Status: Active Protocol: Document 12/19/23 09:04 [facility] (Rec: 12/19/23 12:30 [facility] [id number]) OP-PT Subjective Patient Comments Patient Comments Pt reports had her EKG and just did her treadmill and did 102% but BP went up but otherwise did good. Has ECHO test saturday. Talked to neurosurgeon who discussed considering steroid injection. She needs a new MRI. Pt reports pian in upper back is better. Still has nausea Patient Reported Progress Improving Patient Questionnaires Lower Extremity Functional Scale LEFS Score 46/80 PT-OP-D Balance Start: 09/11/23 10:46 Freq: Status: Active Protocol: Document 11/14/23 07:28 [facility] (Rec: 11/14/23 09:46 [facility] [id number]) Balance Tests Single Limb Standing Single Limb- Right 30 sec w/slight lean Single Limb- Left 30 sec PT-OP-F Manual Assessment Start: 09/11/23 10:46 Freq: Status: Active Protocol: Document 11/14/23 07:28 [facility] (Rec: 11/14/23 09:46 [facility] [id number]) Manual Assessments Soft Tissue Assessment Soft Tissue Mobility Assessment R>L QL and ES tightness and more prominent rib angles R; breathing appears equal B Joint Mobility Assessment Joint Mobility Assessment R iliac crest higher than L; equal greater trochanter; R tibial ER & femoral ER; femoral IR L PT-OP-G Mobility & Gait Start: 09/11/23 10:46 Freq: Status: Active Protocol: Document 11/14/23 07:28 [facility] (Rec: 11/14/23 09:46 [facility] [id number]) OP Gait Assessment Comments Gait Comments dec speed w/lat leaning noted and dec push off PT-OP-J Posture/Palpation/Skin Start: 09/11/23 10:46 Freq: Status: Active Protocol: Document 12/19/23 09:04 [facility] (Rec: 12/19/23 12:30 [facility] [id number]) Posture Evaluation [facility] Postural Classification System [facility] Postural Classifications Posterior/Posterior Vertebral Compression Test 0 Lumbar Protective Mechanism Left AP 1 Lumbar Protective Mechanism Right AP 3 Lumbar Protective Mechanism Left PA 1 Lumbar Protective Mechanism Right PA 3 PT-OP-K Range of Motion Start: 09/11/23 10:46 Freq: Status: Active Protocol: Document 12/19/23 09:04 [facility] (Rec: 12/19/23 12:30 [facility] [id number]) Ankle and Foot Goniometric Range of Motion Ankle and Foot Right Active Dorsiflexion with Knee Flexed 6 Dorsiflexion with Knee Extended 1 Left Active Dorsiflexion with Knee Flexed 8 Dorsiflexion with Knee Extended 5 PT-OP-L Special Tests Start: 09/11/23 10:46 Freq: Status: Active Protocol: Document 11/14/23 07:28 [facility] (Rec: 11/14/23 09:46 [facility] [id number]) Special Tests Lumbar Spine Special Tests Straight Leg Raise Comments neg mild HS tension Slump Test Results neg Other Special Tests Special Tests HR: 84 Bp 136/78 PT-OP-M Strength Start: 09/11/23 10:46 Freq: Status: Active Protocol: Document 12/19/23 09:04 [facility] (Rec: 12/19/23 12:30 [facility] [id number]) Hip Strength Hip Manual Muscle Testing Right Flexion (L2) 5 Normal Abduction 5 Normal Adduction 4+ Good+ External Rotation 4- Good- Internal Rotation 5 Normal Comments pain knee eR Left Flexion (L2) 5 Normal Abduction 4+ Good+ Adduction 5 Normal External Rotation 4 Good Internal Rotation 5 Normal Knee Strength Knee Manual Muscle Testing Right Flexion (S2) 5 Normal Extension (L3) 5 Normal Left Flexion (S2) 4+ Good+ Extension (L3) 5 Normal Ankle/Foot Strength Ankle and Foot Manual Muscle Testing Right Dorsiflexion (L4) 5 Normal Plantarflexion (S1) 5 Normal Inversion 4 Good Eversion (S1) 5 Normal Comments 20 heel rasies ; pain inversion Left Dorsiflexion (L4) 5 Normal Plantarflexion (S1) 4+ Good+ Inversion 5 Normal Eversion (S1) 5 Normal Comments 16 heel raises no pain PT-OP-Q Treatments Start: 09/11/23 10:46 Freq: Status: Active Protocol: Document 12/19/23 09:04 [facility] (Rec: 12/19/23 12:30 [facility] [id number]) Therapeutic Exercises Supine Exercises breathing Reps/Minutes 8 Comments cues to use facilitaiton w/ hand Sitting Exercises AROM Sitting Exercise Name 1. DF 2. spinal Side bilateral Other Exercises isometrics Other Exercise Name mmt and lpm Side bilateral Manual Therapy Treatment Soft Tissue Mobilization Myofascial release Comments OSFM gastrophrenic ligament & gastrosplenic lig & gentle fascial release inf ribcage ant Self-Care/Home Management Treatment Education Other Education 138/76 BP (pt feels nausea) PT-OP-R Modalities Start: 09/11/23 10:46 Freq: Status: Active Protocol: Document 09/23/23 10:31 [facility] (Rec: 09/23/23 12:20 [facility] [id number]) Hot Pack/Cold Pack Treatment Cold Pack Location LB Patient Position Hooklying PT-OP-T Assessment and Plan Start: 09/11/23 10:46 Freq: Status: Active Protocol: Document 12/19/23 09:04 [facility] (Rec: 12/19/23 12:30 [facility] [id number]) Physical Therapy Assessment Goals ROM Heater Furnace Goal (LTG) Improved DF to at least 10 deg in knee flex and 5 deg knee ext position AROM to allow for improved gait and dec foot pain 12/18-improved LTG Duration 02/17 activity Short Term Goal (STG) Pt will be able to do short walks w/dog without inc pain greater than 2/10 11/13-had done some walking but inc pain in back STG Duration achieved 12/18 Heater Furnace Goal (LTG) 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 be 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 11/13- STG Duration achieved 12/18 Heater Furnace Goal (LTG) Pt will improve LEFS score to greater than 55/80 to show improved functional ability. LTG Duration 02/05 SLS Heater Furnace Goal (LTG) Pt will be able to do SLS for 30 sec B w/o hip drop or pain to show iproved balance and LE stability LTG Duration achieved 11/13 Assessment Summary Assessment Pt had improved L SB from 75% to 100% and B rot from about 70% to 90% R w/manual treatment. She is making good progress w/ROM of ankle and back and inc her functional capacity. Back still inc pain w/inc activity and occ flare up of feet. Cont PT to dec pain. Physical Therapy Plan Frequency and Duration Frequency of Treatment 1-2x/Week Duration of treatment (weeks) 8 Plan of Care Start Date 12/19/23 Plan of Care End Date 02/21/24 Therapeutic Interventions Therapeutic Interventions Balance Training,Gait Training ,Home Exercise Program,Joint Mobilizations,Manual Therapy, Neuromuscular Re-education, Orthotic/Prosthetic Management ,Patient/Caregiver Education, Self-Care/Home Management,Soft Tissue Mobilization,Taping, Therapeutic Activities, Therapeutic Exercises Modalities Cold Pack/Ice Massage,Electric Stimulation,Hot Packs, Infrared Therapy,Iontophoresis ,Traction- Mechanical, Ultrasound Next Visit Focus/Plan Next Note Type Treatment Note Next Visit Plan work on mobility of spine to improve flex and rot; work on L hip mobility for don/doff shoes
--- NOTE | 2023-12-19 13:09 | PT.OPPOC ---
Physical, Occupational & Speech Therapy At [facility] Current Diagnoses Low back pain, unspecified (12/19/23) Muscle weakness (generalized) (12/19/23) Plantar fascial fibromatosis (12/19/23) Other enthesopathy of right foot and ankle (12/19/23) Other enthesopathy of left foot and ankle (12/19/23) Abnormal posture (12/19/23) Visit Care Team Role Provider Type MARIBEL Saavedra Family Provider [employer] Hand Primary Care Provider Specialty: Family Practice Address: [address] [place] [address], [id number] Email: [email or web address] Minnie Stone DPM Attending Provider Physician Referring Provider Specialty: Orthopedics Orthopedic Surgery Podiatry Address: [address] [place] [address], [id number] Email: [email or web address] Plan Of Care PT-OP-T Assessment and Plan Start: 09/11/23 10:46 Freq: Status: Active Protocol: Document 12/19/23 09:04 [facility] (Rec: 12/19/23 12:30 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 11/13- STG Duration achieved 12/18 Detention Goal (LTG) Pt will improve LEFS score to greater than 55/80 to show improved functional ability. LTG Duration 02/05 SLS Detention Goal (LTG) Pt will be able to do SLS for 30 sec B w/o hip drop or pain to show iproved balance and LE stability LTG Duration achieved 11/13 Assessment Summary Assessment Pt had improved L SB from 75% to 100% and B rot from about 70% to 90% R w/manual treatment. She is making good progress w/ROM of ankle and back and inc her functional capacity. Back still inc pain w/inc activity and occ flare up of feet. Cont PT to dec pain. Physical Therapy Plan Frequency and Duration Frequency of Treatment 1-2x/Week Duration of treatment (weeks) 8 Plan of Care Start Date 12/19/23 Plan of Care End Date 02/21/24 Therapeutic Interventions Therapeutic Interventions Balance Training,Gait Training ,Home Exercise Program,Joint Mobilizations,Manual Therapy, Neuromuscular Re-education, Orthotic/Prosthetic Management ,Patient/Caregiver Education, Self-Care/Home Management,Soft Tissue Mobilization,Taping, Therapeutic Activities, Therapeutic Exercises Modalities Cold Pack/Ice Massage,Electric Stimulation,Hot Packs, Infrared Therapy,Iontophoresis ,Traction- Mechanical, Ultrasound Next Visit Focus/Plan Next Note Type Treatment Note Next Visit Plan work on mobility of spine to improve flex and rot; work on L hip mobility for don/doff shoes Plan of Care Dates Plan of Care Start Date 12/19/23 Plan of Care End Date 02/21/24 Electronically Signed by: Katlyn Trevino, PT 12/19/23 5524 If you are in agreement with this Plan of Care, please return a signed and dated copy. I have reviewed this Plan of Care and certify that the skilled therapy services above are required to meet the patient?s needs. Physician Signature Date Printed Name and Credentials Clinical Instructor Signature Printed Name and Credentials
--- NOTE | 2023-12-23 09:06 | PT.OTN ---
Current Diagnoses Low back pain, unspecified (12/23/23) Muscle weakness (generalized) (12/23/23) Plantar fascial fibromatosis (12/23/23) Other enthesopathy of right foot and ankle (12/23/23) Other enthesopathy of left foot and ankle (12/23/23) Abnormal posture (12/23/23) Physical Therapy Treatment Note PT-OP-A Visit Information Start: 09/11/23 10:46 Freq: Status: Active Protocol: Document 12/23/23 08:19 [facility] (Rec: 12/23/23 09:06 [facility] [id number]) Out-Patient Physical Therapy Visit Information Visit Information Visit Type Treatment Note Visit Note 10/05 Visit Start Time 08:19 Visit Stop Time 09:00 Visit Number 15 Number of SPA TECHNICIAN Visits 0 PT-OP-B Current Condition Start: 09/11/23 10:46 Freq: Status: Active Protocol: Document 11/14/23 07:28 [facility] (Rec: 11/14/23 09:46 [facility] [id number]) Current Condition History of Current Condition Current Complaints B foot pain; back pain History of Current Condition 11/13-pt has been in ER mult times and seen GI doc, sports and spine clinic w/o significant findings including w/imaging to abdomen. Xray to spine showed prior degenerative changes. She is doing a blood draw today. Primary said may have a hiatal hernia. SHe has had inc w/ voice changes happening. Awaiting colonoscopy December 04. Has appt w/GI next week. 09/15-3 months ago bcak pain and foot pain got worse. Pt has been exercising a lot d/t recent diagnosis of diabetes. She is managing it with diet and exercise. She started power walking and now her feet are killing. She is still walking and it increases her pain but she isn't walking as fast anymore. She lost about 25 lbs exercises. She still takes the dog for about 20 min 2x a day but that is leisurely as she just follows the dog. She is doing recumbant bike for 30 min. Back has been really good until the last couple months and now it really hurts and it spasms in back. Has been trying exercises she found online that she is unsure if help or make worse. helps her remember to stretch before getting up. A couple days hwen both back and feet were killing ehr. She saw Dr. Stone who told her to rest and she got insoles which gives some relief but not enough. She also has a carbon fiber insert which doen't fit in shoes so not using. She got over the counter inserts. She is wearing shoes only with the inserts and is now wearing shoes in the house because it is worse when barefoot. Prior Treatments and Tests R foot xray: IMPRESSION: 1. Metatarsus adductus and hallux valgus. 2. 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 3. Achilles tendon enthesopathy at the calcaneal insertion. Treatment Goals Patient/Caregiver Goals Get back to walking, not have pain when getting up PT-OP-C Subjective Start: 09/11/23 10:46 Freq: Status: Active Protocol: Document 12/23/23 08:19 [facility] (Rec: 12/23/23 09:06 [facility] [id number]) OP-PT Subjective Patient Comments Patient Comments Nausea is the same. She is going to update MRI then get injection for back. [place] a little sore after last session . Lumbar has been painful area recently. Dec thoracic pain overall PT-OP-D Balance Start: 09/11/23 10:46 Freq: Status: Active Protocol: Document 11/14/23 07:28 [facility] (Rec: 11/14/23 09:46 [facility] [id number]) Balance Tests Single Limb Standing Single Limb- Right 30 sec w/slight lean Single Limb- Left 30 sec PT-OP-F Manual Assessment Start: 09/11/23 10:46 Freq: Status: Active Protocol: Document 11/14/23 07:28 [facility] (Rec: 11/14/23 09:46 [facility] [id number]) Manual Assessments Soft Tissue Assessment Soft Tissue Mobility Assessment R>L QL and ES tightness and more prominent rib angles R; breathing appears equal B Joint Mobility Assessment Joint Mobility Assessment R iliac crest higher than L; equal greater trochanter; R tibial ER & femoral ER; femoral IR L PT-OP-G Mobility & Gait Start: 09/11/23 10:46 Freq: Status: Active Protocol: Document 11/14/23 07:28 [facility] (Rec: 11/14/23 09:46 [facility] [id number]) OP Gait Assessment Comments Gait Comments dec speed w/lat leaning noted and dec push off PT-OP-J Posture/Palpation/Skin Start: 09/11/23 10:46 Freq: Status: Active Protocol: Document 12/19/23 09:04 [facility] (Rec: 12/19/23 12:30 [facility] [id number]) Posture Evaluation [facility] Postural Classification System Slade Postural Classifications Posterior/Posterior Vertebral Compression Test 0 Lumbar Protective Mechanism Left AP 1 Lumbar Protective Mechanism Right AP 3 Lumbar Protective Mechanism Left PA 1 Lumbar Protective Mechanism Right PA 3 PT-OP-K Range of Motion Start: 09/11/23 10:46 Freq: Status: Active Protocol: Document 12/19/23 09:04 [facility] (Rec: 12/19/23 12:30 [facility] [id number]) Ankle and Foot Goniometric Range of Motion Ankle and Foot Right Active Dorsiflexion with Knee Flexed 6 Dorsiflexion with Knee Extended 1 Left Active Dorsiflexion with Knee Flexed 8 Dorsiflexion with Knee Extended 5 PT-OP-L Special Tests Start: 09/11/23 10:46 Freq: Status: Active Protocol: Document 11/14/23 07:28 [facility] (Rec: 11/14/23 09:46 [facility] [id number]) Special Tests Lumbar Spine Special Tests Straight Leg Raise Comments neg mild HS tension Slump Test Results neg Other Special Tests Special Tests HR: 84 Bp 136/78 PT-OP-M Strength Start: 09/11/23 10:46 Freq: Status: Active Protocol: Document 12/19/23 09:04 [facility] (Rec: 12/19/23 12:30 [facility] [id number]) Hip Strength Hip Manual Muscle Testing Right Flexion (L2) 5 Normal Abduction 5 Normal Adduction 4+ Good+ External Rotation 4- Good- Internal Rotation 5 Normal Comments pain knee eR Left Flexion (L2) 5 Normal Abduction 4+ Good+ Adduction 5 Normal External Rotation 4 Good Internal Rotation 5 Normal Knee Strength Knee Manual Muscle Testing Right Flexion (S2) 5 Normal Extension (L3) 5 Normal Left Flexion (S2) 4+ Good+ Extension (L3) 5 Normal Ankle/Foot Strength Ankle and Foot Manual Muscle Testing Right Dorsiflexion (L4) 5 Normal Plantarflexion (S1) 5 Normal Inversion 4 Good Eversion (S1) 5 Normal Comments 20 heel rasies ; pain inversion Left Dorsiflexion (L4) 5 Normal Plantarflexion (S1) 4+ Good+ Inversion 5 Normal Eversion (S1) 5 Normal Comments 16 heel raises no pain PT-OP-Q Treatments Start: 09/11/23 10:46 Freq: Status: Active Protocol: Document 12/23/23 08:19 [facility] (Rec: 12/23/23 09:06 [facility] [id number]) Gym Equipment Therapeutic Ball seated Ball Size/Color 65cm Body Position seated Reps/Duration 12 ea Comments 1. pelvic circles B 2. marche B 3. kicks B 4. pelvic tilts Manual Therapy Treatment Soft Tissue Mobilization LB Body Location lumbar/thoracic paraspinals, thoracolumbar fascia Mobilization Type Rolling Intensity/Depth Moderate Comments sit and s/l -manual Joint Mobilizations lumbar Comments s/l distraction L5-S1; L3-4, L2-3 seated distraction FM; upglide R L3 FM PT-OP-R Modalities Start: 09/11/23 10:46 Freq: Status: Active Protocol: Document 09/23/23 10:31 [facility] (Rec: 09/23/23 12:20 [facility] [id number]) Hot Pack/Cold Pack Treatment Cold Pack Location LB Patient Position Hooklying PT-OP-T Assessment and Plan Start: 09/11/23 10:46 Freq: Status: Active Protocol: Document 12/23/23 08:19 [facility] (Rec: 12/23/23 09:06 [facility] [id number]) Physical Therapy Assessment Goals ROM Custodial Goal (LTG) Improved DF to at least 10 deg in knee flex and 5 deg knee ext position AROM to allow for improved gait and dec foot pain 12/18-improved LTG Duration 02/17 activity Short Term Goal (STG) Pt will be able to do short walks w/dog without inc pain greater than 2/10 11/13-had done some walking but inc pain in back STG Duration achieved 12/18 Operator Helper Goal (LTG) Pt will be able to return to all program dir and vigerous walking w/o inc pain 11/13-pain w/household tasks 12/18-sweeping 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 11/13-/ STG Duration achieved 12/18 Custodial Goal (LTG) Pt will improve LEFS score to greater than 55/80 to show improved functional ability. LTG Duration 02/05 SLS Custodial Goal (LTG) Pt will be able to do SLS for 30 sec B w/o hip drop or pain to show iproved balance and LE stability LTG Duration achieved 11/13 Assessment Summary Assessment RECORD PRESSMAN Erika Luis asked to come in during session and asked re: pt symptoms if RECORD PRESSMAN would help and she indicates further workup recommended for GERD and for pt to follow up w/specialist in [place] based on verbal report. pt struggled w/mobility for pelvic clocks and getting movement down. Did well with other core exercsies. R>L lumbar mm guarding and tightness. Physical Therapy Plan Frequency and Duration Frequency of Treatment 1-2x/Week Duration of treatment (weeks) 8 Plan of Care Start Date 12/19/23 Plan of Care End Date 02/21/24 Next Visit Focus/Plan Next Note Type Treatment Note Next Visit Plan work on mobility of spine to improve flex and rot; work on L hip mobility for don/doff shoes
--- NOTE | 2023-12-30 10:18 | PT.OTN ---
Current Diagnoses Low back pain, unspecified (12/30/23) Muscle weakness (generalized) (12/30/23) Plantar fascial fibromatosis (12/30/23) Other enthesopathy of right foot and ankle (12/30/23) Other enthesopathy of left foot and ankle (12/30/23) Abnormal posture (12/30/23) Physical Therapy Treatment Note PT-OP-A Visit Information Start: 09/11/23 10:46 Freq: Status: Active Protocol: Document 12/30/23 08:13 [facility] (Rec: 12/30/23 09:59 [facility] [id number]) Out-Patient Physical Therapy Visit Information Visit Information Visit Type Treatment Note Visit Note 11/02 Visit Start Time 09:03 Visit Stop Time 09:46 Visit Number 16 Number of 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 Xray to spine showed prior degenerative changes. She is doing a blood draw today. Primary said may have a hiatal hernia. SHe has had inc w/ voice changes happening. Awaiting colonoscopy December 04. Has appt w/GI next week. 09/15-3 months ago bcak pain and foot pain got worse. Pt has been exercising a lot d/t recent diagnosis of diabetes. She is managing it with diet and exercise. She started power walking and now her feet are killing. She is still walking and it increases her pain but she isn't walking as fast anymore. She lost about 25 lbs exercises. She still takes the dog for about 20 min 2x a day but that is leisurely as she just follows the dog. She is doing recumbant bike for 30 min. Back has been really good until the last couple months and now it really hurts and it spasms in back. Has been trying exercises she found online that she is unsure if help or make worse. helps her remember to stretch before getting up. A couple days hwen both back and feet were killing ehr. She saw Dr. Stone who told her to rest and she got insoles which gives some relief but not enough. She also has a carbon fiber insert which doen't fit in shoes so not using. She got over the counter inserts. She is wearing shoes only with the inserts and is now wearing shoes in the house because it is worse when barefoot. Prior Treatments and Tests R foot xray: IMPRESSION: 1. Metatarsus adductus and hallux valgus. 2. 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 3. Achilles tendon enthesopathy at the calcaneal insertion. Treatment Goals Patient/Caregiver Goals Get back to walking, not have pain when getting up PT-OP-C Subjective Start: 09/11/23 10:46 Freq: Status: Active Protocol: Document 12/30/23 08:13 [facility] (Rec: 12/30/23 09:59 [facility] [id number]) OP-PT Subjective Patient Comments Patient Comments Patient reports she is about the same, bending over and getting up from back increases neausea. Patient reports she is going to wait until January or fall for her injection. Patient reports having slight back pain. Patient reports she can lisa and doff shoes with effort. 40 deg ER 33 deg IR AROM left hip. PT-OP-D Balance Start: 09/11/23 10:46 Freq: Status: Active Protocol: Document 11/14/23 07:28 [facility] (Rec: 11/14/23 09:46 [facility] [id number]) Balance Tests Single Limb Standing Single Limb- Right 30 sec w/slight lean Single Limb- Left 30 sec PT-OP-F Manual Assessment Start: 09/11/23 10:46 Freq: Status: Active Protocol: Document 11/14/23 07:28 [facility] (Rec: 11/14/23 09:46 [facility] [id number]) Manual Assessments Soft Tissue Assessment Soft Tissue Mobility Assessment R>L QL and ES tightness and more prominent rib angles R; breathing appears equal B Joint Mobility Assessment Joint Mobility Assessment R iliac crest higher than L; equal greater trochanter; R tibial ER & femoral ER; femoral IR L PT-OP-G Mobility & Gait Start: 09/11/23 10:46 Freq: Status: Active Protocol: Document 11/14/23 07:28 [facility] (Rec: 11/14/23 09:46 [facility] [id number]) OP Gait Assessment Comments Gait Comments dec speed w/lat leaning noted and dec push off PT-OP-J Posture/Palpation/Skin Start: 09/11/23 10:46 Freq: Status: Active Protocol: Document 12/19/23 09:04 [facility] (Rec: 12/19/23 12:30 [facility] [id number]) Posture Evaluation [facility] Postural Classification System Slade Postural Classifications Posterior/Posterior Vertebral Compression Test 0 Lumbar Protective Mechanism Left AP 1 Lumbar Protective Mechanism Right AP 3 Lumbar Protective Mechanism Left PA 1 Lumbar Protective Mechanism Right PA 3 PT-OP-K Range of Motion Start: 09/11/23 10:46 Freq: Status: Active Protocol: Document 12/19/23 09:04 [facility] (Rec: 12/19/23 12:30 [facility] [id number]) Ankle and Foot Goniometric Range of Motion Ankle and Foot Right Active Dorsiflexion with Knee Flexed 6 Dorsiflexion with Knee Extended 1 Left Active Dorsiflexion with Knee Flexed 8 Dorsiflexion with Knee Extended 5 PT-OP-L Special Tests Start: 09/11/23 10:46 Freq: Status: Active Protocol: Document 11/14/23 07:28 [facility] (Rec: 11/14/23 09:46 [facility] [id number]) Special Tests Lumbar Spine Special Tests Straight Leg Raise Comments neg mild HS tension Slump Test Results neg Other Special Tests Special Tests HR: 84 Bp 136/78 PT-OP-M Strength Start: 09/11/23 10:46 Freq: Status: Active Protocol: Document 12/19/23 09:04 [facility] (Rec: 12/19/23 12:30 [facility] [id number]) Hip Strength Hip Manual Muscle Testing Right Flexion (L2) 5 Normal Abduction 5 Normal Adduction 4+ Good+ External Rotation 4- Good- Internal Rotation 5 Normal Comments pain knee eR Left Flexion (L2) 5 Normal Abduction 4+ Good+ Adduction 5 Normal External Rotation 4 Good Internal Rotation 5 Normal Knee Strength Knee Manual Muscle Testing Right Flexion (S2) 5 Normal Extension (L3) 5 Normal Left Flexion (S2) 4+ Good+ Extension (L3) 5 Normal Ankle/Foot Strength Ankle and Foot Manual Muscle Testing Right Dorsiflexion (L4) 5 Normal Plantarflexion (S1) 5 Normal Inversion 4 Good Eversion (S1) 5 Normal Comments 20 heel rasies ; pain inversion Left Dorsiflexion (L4) 5 Normal Plantarflexion (S1) 4+ Good+ Inversion 5 Normal Eversion (S1) 5 Normal Comments 16 heel raises no pain PT-OP-Q Treatments Start: 09/11/23 10:46 Freq: Status: Active Protocol: Document 12/30/23 08:13 [facility] (Rec: 12/30/23 09:59 [facility] [id number]) Therapeutic Exercises Supine Exercises hip flexor stretch edge of bed Supine Exercise Name edge of bed hip flex stretch Side bilateral Reps/Minutes X1 each Comments post manual to hip flex, not desmond LTR Side bilateral Reps/Minutes one minute Comments VC to perform in pain free range stretches Supine Exercise Name pirifromis and figure 4 Side bilateral Reps/Minutes 30 seconds to one minute each Standing Exercises paloff press Side bilateral Resistance level 3 latex free green band Reps/Minutes 10 ea stretch Standing Exercise Name hands on plinth-angry cat to lean back Side bilateral Reps/Minutes 2 min total Manual Therapy Treatment Soft Tissue Mobilization lumbar paraspinals Body Location bilateral Mobilization Type Sustained Pressure Intensity/Depth Moderate bilateral hip flexors Body Location hip flexors Mobilization Type Rolling,Strumming Intensity/Depth Moderate Body Position Hooklying Comments VC for breathing from diaphragm right piriformis gluteal area Body Location bilateral glute/pririformis Mobilization Type Rolling Intensity/Depth Moderate Body Position Sidelying Comments monitored for pain PT-OP-R Modalities Start: 09/11/23 10:46 Freq: Status: Active Protocol: Document 09/23/23 10:31 [facility] (Rec: 09/23/23 12:20 [facility] [id number]) Hot Pack/Cold Pack Treatment Cold Pack Location LB Patient Position Hooklying PT-OP-T Assessment and Plan Start: 09/11/23 10:46 Freq: Status: Active Protocol: Document 12/30/23 08:13 [facility] (Rec: 12/30/23 09:59 [facility] [id number]) Physical Therapy Assessment Goals ROM Preparation Plant Repairer Goal (LTG) Improved DF to at least 10 deg in knee flex and 5 deg knee ext position AROM to allow for improved gait and dec foot pain 12/18-improved LTG Duration 02/17 activity Short Term Goal (STG) Pt will be able to do short walks w/dog without inc pain greater than 2/10 11/13-had done some walking but inc pain in back STG Duration achieved 12/18 Correction Goal (LTG) 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 be 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 to 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 and 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 walking w/o inc pain 11/13-pain w/household tasks 12/18-sweeping inc pain, 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 11/13- STG Duration achieved 12/18 Correction Goal (LTG) Pt will improve LEFS score to greater than 55/80 to show improved functional ability. LTG Duration 02/05 SLS Correction Goal (LTG) Pt will be able to do SLS for 30 sec B w/o hip drop or pain to show iproved balance and LE stability LTG Duration achieved 11/13 Assessment Summary Assessment Patient reports hip pain 0/10 back 2/10 same as start of session. Physical Therapy Plan Frequency and Duration Frequency of Treatment 1-2x/Week Duration of treatment (weeks) 8 Plan of Care Start Date 12/19/23 Plan of Care End Date 02/21/24 Next Visit Focus/Plan Next Note Type Treatment Note Next Visit Plan work on mobility of spine to improve flex and rot; work on L hip mobility for don/doff shoes, progress Pallof press to on ball, review HEP hip stretches.
--- NOTE | 2024-01-06 14:46 | PT.OTN ---
Current Diagnoses Low back pain, unspecified (01/06/24) Muscle weakness (generalized) (01/06/24) Plantar fascial fibromatosis (01/06/24) Other enthesopathy of right foot and ankle (01/06/24) Other enthesopathy of left foot and ankle (01/06/24) Abnormal posture (01/06/24) Physical Therapy Treatment Note PT-OP-A Visit Information Start: 09/11/23 10:46 Freq: Status: Active Protocol: Document 01/06/24 12:57 AB (Rec: 01/06/24 14:46 AB [id number]) Out-Patient Physical Therapy Visit Information Visit Information Visit Type Treatment Note Visit Note 12/03 Visit Start Time 13:04 Visit Stop Time 13:48 Visit Number 17 Number of GLAZING DEPARTMENT SUPERVISOR Visits 2 PT-OP-B Current Condition Start: 09/11/23 10:46 Freq: Status: Active Protocol: Document 11/14/23 07:28 [facility] (Rec: 11/14/23 09:46 [facility] [id number]) Current Condition History of Current Condition Current Complaints B foot pain; back pain History of Current Condition 11/13-pt has been in ER mult times and seen GI doc, sports and spine clinic w/o significant findings including w/imaging to abdomen. Xray to spine showed prior degenerative changes. She is doing a blood draw today. Primary said may have a hiatal hernia. SHe has had inc w/ voice changes happening. Awaiting colonoscopy December 04. Has appt w/GI next week. 09/15-3 months ago bcak pain and foot pain got worse. Pt has been exercising a lot d/t recent diagnosis of diabetes. She is managing it with diet and exercise. She started power walking and now her feet are killing. She is still walking and it increases her pain but she isn't walking as fast anymore. She lost about 25 lbs exercises. She still takes the dog for about 20 min 2x a day but that is leisurely as she just follows the dog. She is doing recumbant bike for 30 min. Back has been really good until the last couple months and now it really hurts and it spasms in back. Has been trying exercises she found online that she is unsure if help or make worse. helps her remember to stretch before getting up. A couple days hwen both back and feet were killing ehr. She saw Dr. Stone who told her to rest and she got insoles which gives some relief but not enough. She also has a carbon fiber insert which doen't fit in shoes so not using. She got over the counter inserts. She is wearing shoes only with the inserts and is now wearing shoes in the house because it is worse when barefoot. Prior Treatments and Tests R foot xray: IMPRESSION: 1. Metatarsus adductus and hallux valgus. 2. 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 3. Achilles tendon enthesopathy at the calcaneal insertion. Treatment Goals Patient/Caregiver Goals Get back to walking, not have pain when getting up PT-OP-C Subjective Start: 09/11/23 10:46 Freq: Status: Active Protocol: Document 01/06/24 12:57 AB (Rec: 01/06/24 14:46 AB [id number]) OP-PT Subjective Patient Comments Patient Comments Patient reports increased back pain due to lifting her 28 lb dog. Patient reports she has not done her exercises in 2 days, hand company and also getting ready for camping trip . PT-OP-D Balance Start: 09/11/23 10:46 Freq: Status: Active Protocol: Document 11/14/23 07:28 [facility] (Rec: 11/14/23 09:46 [facility] [id number]) Balance Tests Single Limb Standing Single Limb- Right 30 sec w/slight lean Single Limb- Left 30 sec PT-OP-F Manual Assessment Start: 09/11/23 10:46 Freq: Status: Active Protocol: Document 11/14/23 07:28 [facility] (Rec: 11/14/23 09:46 [facility] [id number]) Manual Assessments Soft Tissue Assessment Soft Tissue Mobility Assessment R>L QL and ES tightness and more prominent rib angles R; breathing appears equal B Joint Mobility Assessment Joint Mobility Assessment R iliac crest higher than L; equal greater trochanter; R tibial ER & femoral ER; femoral IR L PT-OP-G Mobility & Gait Start: 09/11/23 10:46 Freq: Status: Active Protocol: Document 11/14/23 07:28 [facility] (Rec: 11/14/23 09:46 [facility] [id number]) OP Gait Assessment Comments Gait Comments dec speed w/lat leaning noted and dec push off PT-OP-J Posture/Palpation/Skin Start: 09/11/23 10:46 Freq: Status: Active Protocol: Document 12/19/23 09:04 [facility] (Rec: 12/19/23 12:30 [facility] [id number]) Posture Evaluation Slade Postural Classification System Slade Postural Classifications Posterior/Posterior Vertebral Compression Test 0 Lumbar Protective Mechanism Left AP 1 Lumbar Protective Mechanism Right AP 3 Lumbar Protective Mechanism Left PA 1 Lumbar Protective Mechanism Right PA 3 PT-OP-K Range of Motion Start: 09/11/23 10:46 Freq: Status: Active Protocol: Document 12/19/23 09:04 [facility] (Rec: 12/19/23 12:30 [facility] [id number]) Ankle and Foot Goniometric Range of Motion Ankle and Foot Right Active Dorsiflexion with Knee Flexed 6 Dorsiflexion with Knee Extended 1 Left Active Dorsiflexion with Knee Flexed 8 Dorsiflexion with Knee Extended 5 PT-OP-L Special Tests Start: 09/11/23 10:46 Freq: Status: Active Protocol: Document 11/14/23 07:28 [facility] (Rec: 11/14/23 09:46 [facility] [id number]) Special Tests Lumbar Spine Special Tests Straight Leg Raise Comments neg mild HS tension Slump Test Results neg Other Special Tests Special Tests HR: 84 Bp 136/78 PT-OP-M Strength Start: 09/11/23 10:46 Freq: Status: Active Protocol: Document 12/19/23 09:04 [facility] (Rec: 12/19/23 12:30 [facility] [id number]) Hip Strength Hip Manual Muscle Testing Right Flexion (L2) 5 Normal Abduction 5 Normal Adduction 4+ Good+ External Rotation 4- Good- Internal Rotation 5 Normal Comments pain knee eR Left Flexion (L2) 5 Normal Abduction 4+ Good+ Adduction 5 Normal External Rotation 4 Good Internal Rotation 5 Normal Knee Strength Knee Manual Muscle Testing Right Flexion (S2) 5 Normal Extension (L3) 5 Normal Left Flexion (S2) 4+ Good+ Extension (L3) 5 Normal Ankle/Foot Strength Ankle and Foot Manual Muscle Testing Right Dorsiflexion (L4) 5 Normal Plantarflexion (S1) 5 Normal Inversion 4 Good Eversion (S1) 5 Normal Comments 20 heel rasies ; pain inversion Left Dorsiflexion (L4) 5 Normal Plantarflexion (S1) 4+ Good+ Inversion 5 Normal Eversion (S1) 5 Normal Comments 16 heel raises no pain PT-OP-Q Treatments Start: 09/11/23 10:46 Freq: Status: Active Protocol: Document 01/06/24 12:57 AB (Rec: 01/06/24 14:46 AB [id number]) Therapeutic Exercises Supine Exercises hip flexor stretch edge of bed Supine Exercise Name edge of bed hip flex stretch Side bilateral Reps/Minutes X1 each, 60 sec stretches Supine Exercise Name pirifromis and figure 4 Side bilateral Reps/Minutes 60 seconds to one minute each Sitting Exercises seated hip abduction with band Side bilateral Resistance level 2 orange latex free band Reps/Minutes one minute X 1 Comments Verbal cues Standing Exercises paloff press Side bilateral Resistance level 2 latex free doubled Reps/Minutes X10 each side Comments Verbal cues to hold the band centered then press out Therapeutic Activity Therapeutic Activity sit to stand Name with band [place] level 2 latex free Reps/Minutes X10 post review/training for hip hinge Comments Pt ed use of self tactile cues for hip hinge. log roll Reps/Minutes X1 Comments verbal cues to log roll during transitions during session. Manual Therapy Treatment Soft Tissue Mobilization bilateral hip flexors Body Location hip flexors bilateral Mobilization Type Cross-Friction,Rolling Intensity/Depth Moderate Body Position Hooklying right piriformis gluteal area Body Location bilateral glute/pririformis Mobilization Type Cross-Friction,Rolling Intensity/Depth Moderate Body Position Sidelying Comments monitored for pain PT-OP-R Modalities Start: 09/11/23 10:46 Freq: Status: Active Protocol: Document 09/23/23 10:31 [facility] (Rec: 09/23/23 12:20 [facility] [id number]) Hot Pack/Cold Pack Treatment Cold Pack Location LB Patient Position Hooklying PT-OP-T Assessment and Plan Start: 09/11/23 10:46 Freq: Status: Active Protocol: Document 01/06/24 12:57 AB (Rec: 01/06/24 14:46 AB [id number]) Physical Therapy Assessment Goals ROM Residential Goal (LTG) Improved DF to at least 10 deg in knee flex and 5 deg knee ext position AROM to allow for improved gait and dec foot pain 12/18-improved LTG Duration 02/17 activity Short Term Goal (STG) Pt will be able to do short walks w/dog without inc pain greater than 2/10 11/13-had done some walking but inc pain in back STG Duration achieved 12/18 Residential Goal (LTG) Pt will be able to return to all scientist and vigerous walking w/o inc pain 11/13-pain w/household tasks 12/18-sweeping inc pain, 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 11/13-39/ STG Duration achieved 12/18 Residential Goal (LTG) Pt will improve LEFS score to greater than 55/80 to show improved functional ability. LTG Duration 02/05 SLS Art Conservator Goal (LTG) Pt will be able to do SLS for 30 sec B w/o hip drop or pain to show iproved balance and LE stability LTG Duration achieved 11/13 Assessment Summary Assessment Patient reports no change in pain end of session. Kristi was able to perform sit to stand with band with an improved hip hinge post training. Physical Therapy Plan Frequency and Duration Frequency of Treatment 1-2x/Week Duration of treatment (weeks) 8 Plan of Care Start Date 12/19/23 Plan of Care End Date 02/21/24 Next Visit Focus/Plan Next Note Type Treatment Note Next Visit Plan work on mobility of spine to improve flex and rot; work on L hip mobility for don/doff shoes, Focus on progressing Pallof press to on ball, review HEP hip stretches.
--- NOTE | 2024-01-29 10:14 | PT.OTN ---
Current Diagnoses Low back pain, unspecified (01/29/24) Muscle weakness (generalized) (01/29/24) Plantar fascial fibromatosis (01/29/24) Other enthesopathy of right foot and ankle (01/29/24) Other enthesopathy of left foot and ankle (01/29/24) Abnormal posture (01/29/24) Physical Therapy Treatment Note PT-OP-A Visit Information Start: 09/11/23 10:46 Freq: Status: Active Protocol: Document 01/29/24 09:06 [facility] (Rec: 01/29/24 10:13 [facility] [id number]) Out-Patient Physical Therapy Visit Information Visit Information Visit Type Progress Note Visit Note 01/02 Visit Start Time 09:05 Visit Stop Time 09:45 Visit Number 18 Number of DIRECTOR OF ANALYTICS Visits 0 PT-OP-B Current Condition Start: 09/11/23 10:46 Freq: Status: Active Protocol: Document 11/14/23 07:28 [facility] (Rec: 11/14/23 09:46 [facility] [id number]) Current Condition History of Current Condition Current Complaints B foot pain; back pain History of Current Condition 11/13-pt has been in ER mult times and seen GI doc, sports and spine clinic w/o significant findings including w/imaging to abdomen. Xray to spine showed prior degenerative changes. She is doing a blood draw today. Primary said may have a hiatal hernia. SHe has had inc w/ voice changes happening. Awaiting colonoscopy December 04. Has appt w/GI next week. 09/15-3 months ago bcak pain and foot pain got worse. Pt has been exercising a lot d/t recent diagnosis of diabetes. She is managing it with diet and exercise. She started power walking and now her feet are killing. She is still walking and it increases her pain but she isn't walking as fast anymore. She lost about 25 lbs exercises. She still takes the dog for about 20 min 2x a day but that is leisurely as she just follows the dog. She is doing recumbant bike for 30 min. Back has been really good until the last couple months and now it really hurts and it spasms in back. Has been trying exercises she found online that she is unsure if help or make worse. helps her remember to stretch before getting up. A couple days hwen both back and feet were killing ehr. She saw Dr. Stone who told her to rest and she got insoles which gives some relief but not enough. She also has a carbon fiber insert which doen't fit in shoes so not using. She got over the counter inserts. She is wearing shoes only with the inserts and is now wearing shoes in the house because it is worse when barefoot. Prior Treatments and Tests R foot xray: IMPRESSION: 1. Metatarsus adductus and hallux valgus. 2. 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 3. Achilles tendon enthesopathy at the calcaneal insertion. Treatment Goals Patient/Caregiver Goals Get back to walking, not have pain when getting up PT-OP-C Subjective Start: 09/11/23 10:46 Freq: Status: Active Protocol: Document 01/29/24 09:06 [facility] (Rec: 01/29/24 10:13 [facility] [id number]) OP-PT Subjective Patient Comments Patient Comments Pt's LB and thoracic area are painful. neurosurgeon is going to an injection and he thinks that will address her back problem is screws/plates. Anytime she bends over, she is nauseated but isn't nauseated all the time anymore PT-OP-D Balance Start: 09/11/23 10:46 Freq: Status: Active Protocol: Document 11/14/23 07:28 [facility] (Rec: 11/14/23 09:46 [facility] [id number]) Balance Tests Single Limb Standing Single Limb- Right 30 sec w/slight lean Single Limb- Left 30 sec PT-OP-F Manual Assessment Start: 09/11/23 10:46 Freq: Status: Active Protocol: Document 11/14/23 07:28 [facility] (Rec: 11/14/23 09:46 [facility] [id number]) Manual Assessments Soft Tissue Assessment Soft Tissue Mobility Assessment R>L QL and ES tightness and more prominent rib angles R; breathing appears equal B Joint Mobility Assessment Joint Mobility Assessment R iliac crest higher than L; equal greater trochanter; R tibial ER & femoral ER; femoral IR L PT-OP-G Mobility & Gait Start: 09/11/23 10:46 Freq: Status: Active Protocol: Document 11/14/23 07:28 [facility] (Rec: 11/14/23 09:46 [facility] [id number]) OP Gait Assessment Comments Gait Comments dec speed w/lat leaning noted and dec push off PT-OP-J Posture/Palpation/Skin Start: 09/11/23 10:46 Freq: Status: Active Protocol: Document 12/19/23 09:04 [facility] (Rec: 12/19/23 12:30 [facility] [id number]) Posture Evaluation Slade Postural Classification System Slade Postural Classifications Posterior/Posterior Vertebral Compression Test 0 Lumbar Protective Mechanism Left AP 1 Lumbar Protective Mechanism Right AP 3 Lumbar Protective Mechanism Left PA 1 Lumbar Protective Mechanism Right PA 3 PT-OP-K Range of Motion Start: 09/11/23 10:46 Freq: Status: Active Protocol: Document 01/29/24 09:06 [facility] (Rec: 01/29/24 10:14 [facility] [id number]) Lumbar Spine Range of Motion Lumbar Spine Active Percentage Extension 15 Rotation Left 10 Rotation Right 10 Lateral Flexion Left 25 Lateral Flexion Right 20 Comments flex n/t d/t nausea PT-OP-L Special Tests Start: 09/11/23 10:46 Freq: Status: Active Protocol: Document 11/14/23 07:28 [facility] (Rec: 11/14/23 09:46 [facility] [id number]) Special Tests Lumbar Spine Special Tests Straight Leg Raise Comments neg mild HS tension Slump Test Results neg Other Special Tests Special Tests HR: 84 Bp 136/78 PT-OP-M Strength Start: 09/11/23 10:46 Freq: Status: Active Protocol: Document 12/19/23 09:04 [facility] (Rec: 12/19/23 12:30 [facility] [id number]) Hip Strength Hip Manual Muscle Testing Right Flexion (L2) 5 Normal Abduction 5 Normal Adduction 4+ Good+ External Rotation 4- Good- Internal Rotation 5 Normal Comments pain knee eR Left Flexion (L2) 5 Normal Abduction 4+ Good+ Adduction 5 Normal External Rotation 4 Good Internal Rotation 5 Normal Knee Strength Knee Manual Muscle Testing Right Flexion (S2) 5 Normal Extension (L3) 5 Normal Left Flexion (S2) 4+ Good+ Extension (L3) 5 Normal Ankle/Foot Strength Ankle and Foot Manual Muscle Testing Right Dorsiflexion (L4) 5 Normal Plantarflexion (S1) 5 Normal Inversion 4 Good Eversion (S1) 5 Normal Comments 20 heel rasies ; pain inversion Left Dorsiflexion (L4) 5 Normal Plantarflexion (S1) 4+ Good+ Inversion 5 Normal Eversion (S1) 5 Normal Comments 16 heel raises no pain PT-OP-Q Treatments Start: 09/11/23 10:46 Freq: Status: Active Protocol: Document 01/29/24 09:06 [facility] (Rec: 01/29/24 10:13 [facility] [id number]) Therapeutic Exercises Supine Exercises LTR Side bilateral Reps/Minutes 6 Comments started to inc nausea so stopped pelvic tilts Reps/Minutes 8 Comments cues for full ROM Sidelying Exercises open book Side right Reps/Minutes 6 Comments cues for full ROM thru spine Sitting Exercises core Sitting Exercise Name 1. sit backs 2. march Side bilateral Reps/Minutes 1.6 2.10 ea Comments cues neutral spine AROM Sitting Exercise Name 1. pelvic tilts 2. rot Side bilateral Reps/Minutes 6 ea Manual Therapy Treatment Soft Tissue Mobilization LB Body Location lumbar/thoracic paraspinals, thoracolumbar fascia Mobilization Type Rolling Intensity/Depth Moderate Comments sit and s/l -manual w/rot & ant/post dep Joint Mobilizations ribs Comments R rib 8 internal torsion FM lumbar Comments L 5 transverse L innominate Joint R add FM Self-Care/Home Management Treatment Education Other Education 7 sec: edu if unsure about surgery and consdiering 2nd opinion then go to high level surgery center like and schedule appt sooner rather than later. DIscussed importance of cont ROM and core work Activities Self-Care/Home Management Activities Nausea and dizziness w/sitting up from supine; BP checked 147/78 PT-OP-R Modalities Start: 09/11/23 10:46 Freq: Status: Active Protocol: Document 09/23/23 10:31 [facility] (Rec: 09/23/23 12:20 [facility] [id number]) Hot Pack/Cold Pack Treatment Cold Pack Location LB Patient Position Hooklying PT-OP-T Assessment and Plan Start: 09/11/23 10:46 Freq: Status: Active Protocol: Document 01/29/24 09:06 [facility] (Rec: 01/29/24 10:13 [facility] [id number]) Physical Therapy Assessment Goals ROM Care Home Goal (LTG) Improved DF to at least 10 deg in knee flex and 5 deg knee ext position AROM to allow for improved gait and dec foot pain 12/18-improved LTG Duration not measured by DC goal as ROM looks WNL and pt cont to stretch activity Short Term Goal (STG) Pt will be able to do short walks w/dog without inc pain greater than 2/10 11/13-had done some walking but inc pain in back STG Duration achieved 12/18 Care Home Goal (LTG) Pt 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 be 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 and 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 walking w/o inc pain 11/13-pain w/household tasks 12/18-sweeping inc pain, 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 travel 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 11/13-39/80 STG Duration achieved 12/18 Fuel System Maintenance Worker Goal (LTG) Pt will improve LEFS score to greater than 55/80 to show improved functional ability. 01/28-n/t pt did not fill out LTG Duration 04/22 SLS Care Home Goal (LTG) Pt will be able to do SLS for 30 sec B w/o hip drop or pain to show iproved balance and LE stability LTG Duration achieved 11/13 Assessment Summary Assessment improved R rot from about 10% B to about 25% on R. Improved ability to get ant elevation/ post dep w/manual. Did well with exercises and feels comfortable w/these. LImited PT visits d/t pt away on trip and is going on another 6 week trip. will return for 1 month and plan to resume PT w/focus on back. Pt foot pain is much improved and pt was able to hike without significant issue . Physical Therapy Plan Frequency and Duration Frequency of Treatment 1-2x/Week Duration of treatment (weeks) 12 Plan of Care Start Date 01/29/24 Plan of Care End Date 04/22/24 Therapeutic Interventions Therapeutic Interventions Balance Training,Gait Training ,Home Exercise Program,Joint Mobilizations,Manual Therapy, Neuromuscular Re-education, Orthotic/Prosthetic Management ,Patient/Caregiver Education, Self-Care/Home Management,Soft Tissue Mobilization,Taping, Therapeutic Activities, Therapeutic Exercises Modalities Cold Pack/Ice Massage,Electric Stimulation,Hot Packs, Infrared Therapy,Iontophoresis ,Traction- Mechanical, Ultrasound Next Visit Focus/Plan Next Note Type Treatment Note Next Visit Plan work on getting back rotation and ROM of spine and core stabiltiy (avoid supine as inc nausea)
--- NOTE | 2024-01-29 10:15 | PT.OPPOC ---
Physical, Occupational & Speech Therapy At [facility] Current Diagnoses Low back pain, unspecified (01/29/24) Muscle weakness (generalized) (01/29/24) Plantar fascial fibromatosis (01/29/24) Other enthesopathy of right foot and ankle (01/29/24) Other enthesopathy of left foot and ankle (01/29/24) Abnormal posture (01/29/24) Visit Care Team Role Provider Type MARIBEL Saavedra Family Provider Advanced Numerical Control Machine Operator Primary Care Provider Specialty: Family Practice Address: [address] [place] [address], [id number] Email: [email or web address] Minnie Stone DPM Attending Provider Physician Referring Provider Specialty: Orthopedics Orthopedic Surgery Podiatry Address: [address] [place] [address], [phone] Email: [email or web address] Plan Of Care PT-OP-T Assessment and Plan Start: 09/11/23 10:46 Freq: Status: Active Protocol: Document 01/29/24 09:06 [facility] (Rec: 01/29/24 10:13 [facility] [id number]) Physical Therapy Assessment Goals ROM Snf Goal (LTG) Improved DF to at least 10 deg in knee flex and 5 deg knee ext position AROM to allow for improved gait and dec foot pain 12/18-improved LTG Duration not measured by DC goal as ROM looks WNL and pt cont to stretch activity Short Term Goal (STG) Pt will be able to do short walks w/dog without inc pain greater than 2/10 11/13-had done some walking but inc pain in back STG Duration achieved 12/18 Solvent Plant Operator Goal (LTG) Pt will be able to return to all patternmaker and vigerous walking w/o inc pain 11/13-pain w/household tasks 12/18-sweeping inc pain, 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 11/13- STG Duration achieved 12/18 Snf Goal (LTG) Pt will improve LEFS score to greater than 55/80 to show improved functional ability. 6/5-n/t pt did not fill out LTG Duration 04/22 SLS Solvent Plant Operator Goal (LTG) Pt will be able to do SLS for 30 sec B w/o hip drop or pain to show iproved balance and LE stability LTG Duration achieved 11/13 Assessment Summary Assessment improved R rot from about 10% B to about 25% on R. Improved ability to get ant elevation/ post dep w/manual. Did well with exercises and feels comfortable w/these. LImited PT visits d/t pt away on trip and is going on another 6 week trip. will return for 1 month and plan to resume PT w/focus on back. Pt foot pain is much improved and pt was able to hike without significant issue . Physical Therapy Plan Frequency and Duration Frequency of Treatment 1-2x/Week Duration of treatment (weeks) 12 Plan of Care Start Date 01/29/24 Plan of Care End Date 04/22/24 Therapeutic Interventions Therapeutic Interventions Balance Training,Gait Training ,Home Exercise Program,Joint Mobilizations,Manual Therapy, Neuromuscular Re-education, Orthotic/Prosthetic Management ,Patient/Caregiver Education, Self-Care/Home Management,Soft Tissue Mobilization,Taping, Therapeutic Activities, Therapeutic Exercises Modalities Cold Pack/Ice Massage,Electric Stimulation,Hot Packs, Infrared Therapy,Iontophoresis ,Traction- Mechanical, Ultrasound Next Visit Focus/Plan Next Note Type Treatment Note Next Visit Plan work on getting back rotation and ROM of spine and core stabiltiy (avoid supine as inc nausea) Plan of Care Dates Plan of Care Start Date 01/29/24 Plan of Care End Date 04/22/24 Electronically Signed by: Katlyn Trevino, PT 01/29/24 1015 If you are in agreement with this Plan of Care, please return a signed and dated copy. I have reviewed this Plan of Care and certify that the skilled therapy services above are required to meet the patient?s needs. Physician Signature Date Printed Name and Credentials Clinical Instructor Signature Printed Name and Credentials
--- NOTE | 2024-03-23 17:59 | PT.OTN ---
Current Diagnoses Low back pain, unspecified (03/23/24) Muscle weakness (generalized) (03/23/24) Plantar fascial fibromatosis (03/23/24) Other enthesopathy of right foot and ankle (03/23/24) Other enthesopathy of left foot and ankle (03/23/24) Abnormal posture (03/23/24) Physical Therapy Treatment Note PT-OP-A Visit Information Start: 09/11/23 10:46 Freq: Status: Active Protocol: Document 03/23/24 09:56 [facility] (Rec: 03/23/24 17:59 [facility] [id number]) Out-Patient Physical Therapy Visit Information Visit Information Visit Type Progress Note Visit Note 09/04 Visit Start Time 09:53 Visit Stop Time 10:35 Visit Number 19 Number of REINSURANCE CLERK Visits 0 PT-OP-B Current Condition Start: 09/11/23 10:46 Freq: Status: Active Protocol: Document 11/14/23 07:28 [facility] (Rec: 11/14/23 09:46 [facility] [id number]) Current Condition History of Current Condition Current Complaints B foot pain; back pain History of Current Condition 11/13-pt has been in ER mult times and seen GI doc, sports and spine clinic w/o significant findings including w/imaging to abdomen. Xray to spine showed prior degenerative changes. She is doing a blood draw today. Primary said may have a hiatal hernia. SHe has had inc w/ voice changes happening. Awaiting colonoscopy December 04. Has appt w/GI next week. 09/15-3 months ago bcak pain and foot pain got worse. Pt has been exercising a lot d/t recent diagnosis of diabetes. She is managing it with diet and exercise. She started power walking and now her feet are killing. She is still walking and it increases her pain but she isn't walking as fast anymore. She lost about 25 lbs exercises. She still takes the dog for about 20 min 2x a day but that is leisurely as she just follows the dog. She is doing recumbant bike for 30 min. Back has been really good until the last couple months and now it really hurts and it spasms in back. Has been trying exercises she found online that she is unsure if help or make worse. helps her remember to stretch before getting up. A couple days hwen both back and feet were killing ehr. She saw Dr. Stone who told her to rest and she got insoles which gives some relief but not enough. She also has a carbon fiber insert which doen't fit in shoes so not using. She got over the counter inserts. She is wearing shoes only with the inserts and is now wearing shoes in the house because it is worse when barefoot. Prior Treatments and Tests R foot xray: IMPRESSION: 1. Metatarsus adductus and hallux valgus. 2. 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 3. Achilles tendon enthesopathy at the calcaneal insertion. Treatment Goals Patient/Caregiver Goals Get back to walking, not have pain when getting up PT-OP-C Subjective Start: 09/11/23 10:46 Freq: Status: Active Protocol: Document 03/23/24 09:56 [facility] (Rec: 03/23/24 17:59 [facility] [id number]) OP-PT Subjective Patient Comments Patient Comments Pt reports she went to walk in last sat and cervical MRI done but just shows degeneration. She has had B arms feeling heavy and did tell neurloligst and had difficulty raising them. Awaiting primary appt . Feels like body has become imobile. has had to help with her grandkids d/t dgt in law not doing well. denies [place]KE[place]. has not been sleeping well d/t pain and stress. PT-OP-D Balance Start: 09/11/23 10:46 Freq: Status: Active Protocol: Document 11/14/23 07:28 [facility] (Rec: 11/14/23 09:46 [facility] [id number]) Balance Tests Single Limb Standing Single Limb- Right 30 sec w/slight lean Single Limb- Left 30 sec PT-OP-F Manual Assessment Start: 09/11/23 10:46 Freq: Status: Active Protocol: Document 11/14/23 07:28 [facility] (Rec: 11/14/23 09:46 [facility] [id number]) Manual Assessments Soft Tissue Assessment Soft Tissue Mobility Assessment R>L QL and ES tightness and more prominent rib angles R; breathing appears equal B Joint Mobility Assessment Joint Mobility Assessment R iliac crest higher than L; equal greater trochanter; R tibial ER & femoral ER; femoral IR L PT-OP-G Mobility & Gait Start: 09/11/23 10:46 Freq: Status: Active Protocol: Document 11/14/23 07:28 [facility] (Rec: 11/14/23 09:46 [facility] [id number]) OP Gait Assessment Comments Gait Comments dec speed w/lat leaning noted and dec push off PT-OP-J Posture/Palpation/Skin Start: 09/11/23 10:46 Freq: Status: Active Protocol: Document 03/23/24 09:56 [facility] (Rec: 03/23/24 17:59 [facility] [id number]) Posture Evaluation [facility] Postural Classification System Lumbar Protective Mechanism Left AP 3 Lumbar Protective Mechanism Right AP 3 Lumbar Protective Mechanism Left PA 1 Lumbar Protective Mechanism Right PA 2 PT-OP-K Range of Motion Start: 09/11/23 10:46 Freq: Status: Active Protocol: Document 01/29/24 09:06 [facility] (Rec: 01/29/24 10:14 [facility] [id number]) Lumbar Spine Range of Motion Lumbar Spine Active Percentage Extension 15 Rotation Left 10 Rotation Right 10 Lateral Flexion Left 25 Lateral Flexion Right 20 Comments flex n/t d/t nausea PT-OP-L Special Tests Start: 09/11/23 10:46 Freq: Status: Active Protocol: Document 11/14/23 07:28 [facility] (Rec: 11/14/23 09:46 [facility] [id number]) Special Tests Lumbar Spine Special Tests Straight Leg Raise Comments neg mild HS tension Slump Test Results neg Other Special Tests Special Tests HR: 84 Bp 136/78 PT-OP-M Strength Start: 09/11/23 10:46 Freq: Status: Active Protocol: Document 03/23/24 09:56 [facility] (Rec: 03/23/24 17:59 [facility] [id number]) Hip Strength Hip Manual Muscle Testing Right Flexion (L2) 5 Normal Abduction 3+ Fair+ External Rotation 4- Good- Internal Rotation 5 Normal Comments pain knee eR Left Flexion (L2) 4 Good Abduction 4 Good External Rotation 4 Good Internal Rotation 5 Normal Knee Strength Knee Manual Muscle Testing Right Flexion (S2) 4 Good Extension (L3) 4+ Good+ Left Flexion (S2) 5 Normal Extension (L3) 5 Normal Ankle/Foot Strength Ankle and Foot Manual Muscle Testing Right Dorsiflexion (L4) 5 Normal Plantarflexion (S1) 3+ Fair+ Inversion 4 Good Eversion (S1) 5 Normal Comments 4 heel raises weak Left Dorsiflexion (L4) 5 Normal Plantarflexion (S1) 4 Good Inversion 5 Normal Eversion (S1) 5 Normal Comments 11 heel raises weak feeling PT-OP-Q Treatments Start: 09/11/23 10:46 Freq: Status: Active Protocol: Document 03/23/24 09:56 [facility] (Rec: 03/23/24 17:59 [facility] [id number]) Therapeutic Exercises Other Exercises isometrics Other Exercise Name mmt and lpm Side bilateral Reps/Minutes 8 min Manual Therapy Treatment Consent Patient gave verbal consent for manual Yes treatment Soft Tissue Mobilization LB Body Location lumbar/thoracic paraspinals, thoracolumbar fascia Mobilization Type Rolling Intensity/Depth Moderate Comments sit and s/l Joint Mobilizations thoracic Comments UPA R seated grade II T10 sacrum Joint distraction caudal Grade II Self-Care/Home Management Treatment Education Other Education 13 min: discussion about importance of following up w/ doctor re: weakness and neck pain and if gets worse to go to ER w/neurology available. Edu to pt for importance of follow up and for PT to follow next week after further medical assessment has been completed vs againt his week. Edu that in order to treat neck, new referralw ould be needd PT-OP-R Modalities Start: 09/11/23 10:46 Freq: Status: Active Protocol: Document 09/23/23 10:31 [facility] (Rec: 09/23/23 12:20 [id number] Hot Pack/Cold Pack Treatment Cold Pack Location LB Patient Position Hooklying PT-OP-T Assessment and Plan Start: 09/11/23 10:46 Freq: Status: Active Protocol: Document 03/23/24 09:56 [facility] (Rec: 03/23/24 17:59 [facility] [id number]) Physical Therapy Assessment Goals ROM Budget Specialist Goal (LTG) Improved DF to at least 10 deg in knee flex and 5 deg knee ext position AROM to allow for improved gait and dec foot pain 12/18-improved LTG Duration not measured by DC goal as ROM looks WNL and pt cont to stretch activity Short Term Goal (STG) Pt will be able to do short walks w/dog without inc pain greater than 2/10 11/13-had done some walking but inc pain in back STG Duration achieved 12/18 Budget Specialist Goal (LTG) Pt will be able to return to all patient transition specialist and vigerous walking w/o inc pain 11/13-pain w/household tasks 12/18-sweeping inc pain, 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, has not tried vigerous walking; feet doing okay 01/28-abdl to hike but ADLs inc back pain 03/23 hard to stand fro long periods and pays for doing chores;did some long walks and vigerous walks and it didn't seem to make pain worse LTG Duration 04/22 strength Short Term Goal (STG) Pt will be indep w/HEP STG Duration achieved advance as able Senior Care Goal (LTG) Pt will score at least 4+/5 BLEs and 3/5 LPM in order to allow improved stability to allow greater ease w/daily activities 11/13-improved 12/18-improved 01/28-n/t d/t significant pain w /mobility today but likely dec LTG Duration 04/22 LEFS Impairment 32/80 Short Term Goal (STG) Pt will improve LEFS score to greater than 45/80 to show improved functional ability. 11/13-39/80 STG Duration achieved 12/18 Senior Care Goal (LTG) Pt will improve LEFS score to greater than 55/80 to show improved functional ability. 01/28-n/t pt did not fill out 03/23-nt LTG Duration 04/22 SLS Budget Specialist Goal (LTG) Pt will be able to do SLS for 30 sec B w/o hip drop or pain to show iproved balance and LE stability LTG Duration achieved 11/13 Assessment Summary Assessment Pt has had significant increase in pain in cervical spine w/BUE weakness which she has been seen in walk in and has appt w/new primary on and has talked to neurosurgeon. She has overall dec strength since last seen about 6 weeks ago. pt not followed regularly d/t her travels.S he would benefit from skilled PT to work on core stability and LE strength to improve LBP. Physical Therapy Plan Frequency and Duration Frequency of Treatment 1-2x/Week Duration of treatment (weeks) 12 Plan of Care Start Date 01/29/24 Plan of Care End Date 04/22/24 Therapeutic Interventions Therapeutic Interventions Balance Training,Gait Training ,Home Exercise Program,Joint Mobilizations,Manual Therapy, Neuromuscular Re-education, Orthotic/Prosthetic Management ,Patient/Caregiver Education, Self-Care/Home Management,Soft Tissue Mobilization,Taping, Therapeutic Activities, Therapeutic Exercises Modalities Cold Pack/Ice Massage,Electric Stimulation,Hot Packs, Infrared Therapy,Iontophoresis ,Traction- Mechanical, Ultrasound Next Visit Focus/Plan Next Note Type Treatment Note Next Visit Plan work on getting back rotation and ROM of spine and core stabiltiy (avoid supine as inc nausea)
--- NOTE | 2024-03-23 17:59 | PT.OPPOC ---
Physical, Occupational & Speech Therapy At [facility] Current Diagnoses Low back pain, unspecified (03/23/24) Muscle weakness (generalized) (03/23/24) Plantar fascial fibromatosis (03/23/24) Other enthesopathy of right foot and ankle (03/23/24) Other enthesopathy of left foot and ankle (03/23/24) Abnormal posture (03/23/24) Visit Care Team Role Provider Type MARIBEL Saavedra Family Provider Advanced Mental Health Consultant Primary Care Provider Specialty: Family Practice Address: [address] [place] [address], [id number] Email: [email or web address] Minnie Stone DPM Attending Provider Physician Referring Provider Specialty: Orthopedics Orthopedic Surgery Podiatry Address: [address] [place] [address], [address] Email: [email or web address] Plan Of Care PT-OP-B Current Condition Start: 09/11/23 10:46 Freq: Status: Active Protocol: Document 11/14/23 07:28 [facility] (Rec: 11/14/23 09:46 [facility] [id number]) Current Condition History of Current Condition Current Complaints B foot pain; back pain History of Current Condition 11/13-pt has been in ER mult times and seen GI doc, sports and spine clinic w/o significant findings including w/imaging to abdomen. Xray to spine showed prior degenerative changes. She is doing a blood draw today. Primary said may have a hiatal hernia. SHe has had inc w/ voice changes happening. Awaiting colonoscopy December 04. Has appt w/GI next week. 09/15-3 months ago bcak pain and foot pain got worse. Pt has been exercising a lot d/t recent diagnosis of diabetes. She is managing it with diet and exercise. She started power walking and now her feet are killing. She is still walking and it increases her pain but she isn't walking as fast anymore. She lost about 25 lbs exercises. She still takes the dog for about 20 min 2x a day but that is leisurely as she just follows the dog. She is doing recumbant bike for 30 min. Back has been really good until the last couple months and now it really hurts and it spasms in back. Has been trying exercises she found online that she is unsure if help or make worse. helps her remember to stretch before getting up. A couple days hwen both back and feet were killing ehr. She saw Dr. Stone who told her to rest and she got insoles which gives some relief but not enough. She also has a carbon fiber insert which doen't fit in shoes so not using. She got over the counter inserts. She is wearing shoes only with the inserts and is now wearing shoes in the house because it is worse when barefoot. Prior Treatments and Tests R foot xray: IMPRESSION: 1. Metatarsus adductus and hallux valgus. 2. 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 3. Achilles tendon enthesopathy at the calcaneal insertion. Treatment Goals Patient/Caregiver Goals Get back to walking, not have pain when getting up PT-OP-T Assessment and Plan Start: 09/11/23 10:46 Freq: Status: Active Protocol: Document 03/23/24 09:56 [facility] (Rec: 03/23/24 17:59 [facility] [id number]) Physical Therapy Assessment Goals ROM Senior Living Goal (LTG) Improved DF to at least 10 deg in knee flex and 5 deg knee ext position AROM to allow for improved gait and dec foot pain 12/18-improved LTG Duration not measured by DC goal as ROM looks WNL and pt cont to stretch activity Short Term Goal (STG) Pt will be able to do short walks w/dog without inc pain greater than 2/10 11/13-had done some walking but inc pain in back STG Duration achieved 12/18 Transportation Worker Goal (LTG) Pt will be able to 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 to 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 and vigerous walking w/o inc pain 11/13-pain w/household tasks 12/18-sweeping inc pain, 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, has not tried vigerous walking; feet doing okay 01/28-abdl to hike but ADLs inc back pain 03/23 hard to stand fro long periods and pays for doing chores;did some long walks and vigerous walks and it didn't seem to make pain worse LTG Duration 04/22 strength Short Term Goal (STG) Pt will be indep w/HEP STG Duration achieved advance as able Senior Living Goal (LTG) Pt will score at least 4+/5 BLEs and 3/5 LPM in order to allow improved stability to allow greater ease w/daily activities 11/13-improved 12/18-improved 01/28-n/t d/t significant pain w /mobility today but likely dec LTG Duration 04/22 LEFS Impairment 32/80 Short Term Goal (STG) Pt will improve LEFS score to greater than 45/80 to show improved functional ability. 11/13- STG Duration achieved 12/18 Transportation Worker Goal (LTG) Pt will improve LEFS score to greater than 55/80 to show improved functional ability. 01/28-n/t pt did not fill out 03/23-nt LTG Duration 04/22 SLS Transportation Worker Goal (LTG) Pt will be able to do SLS for 30 sec B w/o hip drop or pain to show iproved balance and LE stability LTG Duration achieved 11/13 Assessment Summary Assessment Pt has had significant increase in pain in cervical spine w/BUE weakness which she has been seen in walk in and has appt w/new primary on and has talked to neurosurgeon. She has overall dec strength since last seen about 6 weeks ago. pt not followed regularly d/t her travels.S he would benefit from skilled PT to work on core stability and LE strength to improve LBP. Physical Therapy Plan Frequency and Duration Frequency of Treatment 1-2x/Week Duration of treatment (weeks) 12 Plan of Care Start Date 01/29/24 Plan of Care End Date 04/22/24 Therapeutic Interventions Therapeutic Interventions Balance Training,Gait Training ,Home Exercise Program,Joint Mobilizations,Manual Therapy, Neuromuscular Re-education, Orthotic/Prosthetic Management ,Patient/Caregiver Education, Self-Care/Home Management,Soft Tissue Mobilization,Taping, Therapeutic Activities, Therapeutic Exercises Modalities Cold Pack/Ice Massage,Electric Stimulation,Hot Packs, Infrared Therapy,Iontophoresis ,Traction- Mechanical, Ultrasound Next Visit Focus/Plan Next Note Type Treatment Note Next Visit Plan work on getting back rotation and ROM of spine and core stabiltiy (avoid supine as inc nausea) Plan of Care Dates Plan of Care Start Date 01/29/24 Plan of Care End Date 04/22/24 Electronically Signed by: Katlyn Trevino, PT 03/23/24 4870 If you are in agreement with this Plan of Care, please return a signed and dated copy. I have reviewed this Plan of Care and certify that the skilled therapy services above are required to meet the patient?s needs. Physician Signature Date Printed Name and Credentials Clinical Instructor Signature Printed Name and Credentials
--- NOTE | 2024-04-28 17:35 | PT.OPDS ---
Current Diagnoses Low back pain, unspecified (03/23/24) Muscle weakness (generalized) (03/23/24) Plantar fascial fibromatosis (03/23/24) Other enthesopathy of right foot and ankle (03/23/24) Other enthesopathy of left foot and ankle (03/23/24) Abnormal posture (03/23/24) Visit Care Team Role Provider Type MARIBEL Saavedra Family Provider Advanced Engineering Technologist Primary Care Provider Specialty: Family Practice Address: [address] [place] [address], [id number] Email: [email or web address] Minnie Stone DPM Attending Provider Physician Referring Provider Specialty: Orthopedics Orthopedic Surgery Podiatry Address: [address] [place] [address], [id number] Email: [email or web address] Visit Number Visit Number 19 Discharge Summary PT-OP-B Current Condition Start: 09/11/23 10:46 Freq: Status: Active Protocol: Document 11/14/23 07:28 [facility] (Rec: 11/14/23 09:46 [facility] [id number]) Current Condition History of Current Condition Current Complaints B foot pain; back pain History of Current Condition 11/13-pt has been in ER mult times and seen GI doc, sports and spine clinic w/o significant findings including w/imaging to abdomen. Xray to spine showed prior degenerative changes. She is doing a blood draw today. Primary said may have a hiatal hernia. SHe has had inc w/ voice changes happening. Awaiting colonoscopy December 04. Has appt w/GI next week. 09/15-3 months ago bcak pain and foot pain got worse. Pt has been exercising a lot d/t recent diagnosis of diabetes. She is managing it with diet and exercise. She started power walking and now her feet are killing. She is still walking and it increases her pain but she isn't walking as fast anymore. She lost about 25 lbs exercises. She still takes the dog for about 20 min 2x a day but that is leisurely as she just follows the dog. She is doing recumbant bike for 30 min. Back has been really good until the last couple months and now it really hurts and it spasms in back. Has been trying exercises she found online that she is unsure if help or make worse. helps her remember to stretch before getting up. A couple days hwen both back and feet were killing ehr. She saw Dr. Stone who told her to rest and she got insoles which gives some relief but not enough. She also has a carbon fiber insert which doen't fit in shoes so not using. She got over the counter inserts. She is wearing shoes only with the inserts and is now wearing shoes in the house because it is worse when barefoot. Prior Treatments and Tests R foot xray: IMPRESSION: 1. Metatarsus adductus and hallux valgus. 2. 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 3. Achilles tendon enthesopathy at the calcaneal insertion. Treatment Goals Patient/Caregiver Goals Get back to walking, not have pain when getting up PT-OP-C Subjective Start: 09/11/23 10:46 Freq: Status: Active Protocol: Document 03/23/24 09:56 [facility] (Rec: 03/23/24 17:59 [facility] [id number]) OP-PT Subjective Patient Comments Patient Comments Pt reports she went to walk in last sat and cervical MRI done but just shows degeneration. She has had B arms feeling heavy and did tell neurloligst and had difficulty raising them. Awaiting primary appt . Feels like body has become imobile. has had to help with her grandkids d/t dgt in law not doing well. denies MCKEON. has not been sleeping well d/t pain and stress. PT-OP-D Balance Start: 09/11/23 10:46 Freq: Status: Active Protocol: Document 11/14/23 07:28 [facility] (Rec: 11/14/23 09:46 [facility] [id number]) Balance Tests Single Limb Standing Single Limb- Right 30 sec w/slight lean Single Limb- Left 30 sec PT-OP-F Manual Assessment Start: 09/11/23 10:46 Freq: Status: Active Protocol: Document 11/14/23 07:28 [facility] (Rec: 11/14/23 09:46 [facility] [id number]) Manual Assessments Soft Tissue Assessment Soft Tissue Mobility Assessment R>L QL and ES tightness and more prominent rib angles R; breathing appears equal B Joint Mobility Assessment Joint Mobility Assessment R iliac crest higher than L; equal greater trochanter; R tibial ER & femoral ER; femoral IR L PT-OP-G Mobility & Gait Start: 09/11/23 10:46 Freq: Status: Active Protocol: Document 11/14/23 07:28 [facility] (Rec: 11/14/23 09:46 [facility] [id number]) OP Gait Assessment Comments Gait Comments dec speed w/lat leaning noted and dec push off PT-OP-J Posture/Palpation/Skin Start: 09/11/23 10:46 Freq: Status: Active Protocol: Document 03/23/24 09:56 [facility] (Rec: 03/23/24 17:59 [facility] [id number]) Posture Evaluation [facility] Postural Classification System Lumbar Protective Mechanism Left AP 3 Lumbar Protective Mechanism Right AP 3 Lumbar Protective Mechanism Left PA 1 Lumbar Protective Mechanism Right PA 2 PT-OP-K Range of Motion Start: 09/11/23 10:46 Freq: Status: Active Protocol: Document 01/29/24 09:06 [facility] (Rec: 01/29/24 10:14 [facility] [id number]) Lumbar Spine Range of Motion Lumbar Spine Active Percentage Extension 15 Rotation Left 10 Rotation Right 10 Lateral Flexion Left 25 Lateral Flexion Right 20 Comments flex n/t d/t nausea PT-OP-L Special Tests Start: 09/11/23 10:46 Freq: Status: Active Protocol: Document 11/14/23 07:28 [facility] (Rec: 11/14/23 09:46 [facility] [id number]) Special Tests Lumbar Spine Special Tests Straight Leg Raise Comments neg mild HS tension Slump Test Results neg Other Special Tests Special Tests HR: 84 Bp 136/78 PT-OP-M Strength Start: 09/11/23 10:46 Freq: Status: Active Protocol: Document 03/23/24 09:56 [facility] (Rec: 03/23/24 17:59 [facility] [id number]) Hip Strength Hip Manual Muscle Testing Right Flexion (L2) 5 Normal Abduction 3+ Fair+ External Rotation 4- Good- Internal Rotation 5 Normal Comments pain knee eR Left Flexion (L2) 4 Good Abduction 4 Good External Rotation 4 Good Internal Rotation 5 Normal Knee Strength Knee Manual Muscle Testing Right Flexion (S2) 4 Good Extension (L3) 4+ Good+ Left Flexion (S2) 5 Normal Extension (L3) 5 Normal Ankle/Foot Strength Ankle and Foot Manual Muscle Testing Right Dorsiflexion (L4) 5 Normal Plantarflexion (S1) 3+ Fair+ Inversion 4 Good Eversion (S1) 5 Normal Comments 4 heel raises weak Left Dorsiflexion (L4) 5 Normal Plantarflexion (S1) 4 Good Inversion 5 Normal Eversion (S1) 5 Normal Comments 11 heel raises weak feeling PT-OP-T Assessment and Plan Start: 09/11/23 10:46 Freq: Status: Active Protocol: Document 04/28/24 17:34 [facility] (Rec: 04/28/24 17:35 [facility] [id number]) Physical Therapy Assessment Goals ROM Senior Care Goal (LTG) Improved DF to at least 10 deg in knee flex and 5 deg knee ext position AROM to allow for improved gait and dec foot pain 12/18-improved LTG Duration not measured by DC goal as ROM looks WNL and pt cont to stretch activity Short Term Goal (STG) Pt will be able to do short walks w/dog without inc pain greater than 2/10 11/13-had done some walking but inc pain in back STG Duration achieved 12/18 Senior Care Goal (LTG) 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 be 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 walking w/o inc pain 11/13-pain w/household tasks 12/18-sweeping inc pain, 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 sock drier hurts, has not tried vigerous walking; feet doing okay 01/28-abdl to hike but ADLs inc back pain 03/23 hard to stand fro long periods and pays for doing chores;did some long walks and vigerous walks and it didn't seem to make pain worse LTG Duration 04/22 strength Short Term Goal (STG) Pt will be indep w/HEP STG Duration achieved advance as able Senior Care Goal (LTG) Pt will score at least 4+/5 BLEs and 3/5 LPM in order to allow improved stability to allow greater ease w/daily activities 11/13-improved 12/18-improved 01/28-n/t d/t significant pain w /mobility today but likely dec LTG Duration 04/22 LEFS Impairment 32/80 Short Term Goal (STG) Pt will improve LEFS score to greater than 45/80 to show improved functional ability. 11/13- STG Duration achieved 12/18 Temple Meat Cutter Goal (LTG) Pt will improve LEFS score to greater than 55/80 to show improved functional ability. 01/28-n/t pt did not fill out 03/23-nt LTG Duration 04/22 SLS Senior Care Goal (LTG) Pt will be able to do SLS for 30 sec B w/o hip drop or pain to show iproved balance and LE stability LTG Duration achieved 11/13 Assessment Summary Assessment Pt made great progress w/B foot pain and no longer has foot pain but does have back pain still. Pt is restricted more by progressive weakness so DC this case to open new case. Physical Therapy Plan Discharge Physical Therapy Discharge Reasons Change in Medical Status
== END 2024-05-12 15:17 | disposition home or self-care (01) ==
LOC: PHYS 09:45
PROVIDERS: Family Provider Nurse Practitioner; PCP Nurse Practitioner; Referring Provider Podiatrist; Visit Provider Podiatrist
DX: M72.2 Plantar fascial fibromatosis (principal); M77.51 Other enthesopathy of right foot and ankle; M77.52 Other enthesopathy of left foot and ankle; M54.50 Low back pain, unspecified; M62.81 Muscle weakness (generalized); R29.3 Abnormal posture
CPT/HCPCS: 97110; 97140; 97162; 97164; 97530; 97535

== ENCOUNTER 2024-03-27 07:57 | Emergency (ER) | payer MEDICARE, OTHER, SELFPAY ==
[2023-10-23 14:52] VITALS: BMI 36.1
[2024-03-27] VITALS (21 sets, daily range): BP systolic 128–189; BP diastolic 61–119; PULSE 70–107; RESP 16–25; TEMP 37; O2SAT 95–100; BMI 34.2
--- NOTE | 2024-03-27 08:13 | ED.NEUROSD ---
HPI - Neuro Symptoms/Deficit General Chief Complaint: Weakness Stated Complaint: thinks she's having a stroke Time Seen by Provider: 03/27/24 08:12 History of Present Illness HPI Narrative: Patient is a 68-year-old female with known lumbar stenosis, hyperlipidemia hypothyroid hypertension, chronic anticoagulation for DVT presenting today with increasing lower extremity weakness and upper extremity weakness bilaterally. He actually had open lumbar MRI done in November 2023 which showed central canal stenosis at L3-L4 with anterior listhesis that was stable and worsening moderate central canal stenosis at L4-L5 with broad-based disc bulge and there is a high-grade moderate to severe left-sided lateral recess narrowing that is worsened with potential impingement of left L5 nerve root. She reports that over the last 5-7 days she has had increasing weakness in her lower extremities she says that she is normally able to walk however over the last 5 days she has required a cane she is constantly trying to tell her feet to move and it has not working. She was seen at the walk-in clinic last week because she could not lift either arm. She has an outpatient MRI scheduled but she does not know when it is of her cervical spine as well. She denies any sort of chest pain fever shortness of breath or abdominal pain. She reports that she can still tell when she has to go to the restroom and has not had any incontinence. But this morning woke up and really can not walk at all Related Data Home Medications Medication Instructions Recorded Confirmed rivaroxaban 10 mg tablet (Xarelto) 10 mg PO DAILY 07/20/20 12/04/23 omeprazole 40 mg capsule,delayed 40 mg PO BID 12/10/23 12/10/23 release Previous Rx's Medication Instructions Recorded clobetasol 0.05 % topical ointment 1 applic topical DAILY #45 grams 10/30/22 ipratropium bromide 42 mcg (0.06 2 spray intranasal TID PRN allergy 11/23/22 %) nasal spray symptoms #15 mL betamethasone dipropionate 0.05 % 1 applic topical DAILY PRN itching 04/01/23 topical cream #45 grams blood-glucose meter #1 ea 04/11/23 levothyroxine 50 mcg tablet 50 mcg PO DAILY Hypothyrodisim #90 05/21/23 (Synthroid) tabs lancets #100 ea 05/29/23 atorvastatin 40 mg tablet 40 mg PO ONCE PM #90 tabs 07/29/23 lancets 28 gauge (TRUEplus Lancets) #200 ea 07/29/23 losartan 25 mg tablet 25 mg PO DAILY for blood pressure 07/29/23 #90 tabs blood sugar diagnostic (True #100 ea 07/30/23 Metrix Glucose Test Strip) epinephrine 0.3 mg/0.3 mL 0.3 mg (0.3 mL) IM Q5-15M PRN 10/15/23 injection, auto-injector (EpiPen anaphylaxis #2 ea 2-Anam) gabapentin 300 mg capsule 600 mg (2 x 300 mg) PO TID 90 days 10/21/23 #540 caps metoclopramide HCl 5 mg tablet 5 mg PO QAC #60 tabs 11/11/23 methylprednisolone 4 mg tablets in See Rx Instructions PO .COMPLEX 03/27/24 a dose pack (Medrol (Anam)) #21 ea Allergies Allergy/AdvReac Type Severity Reaction Status Date / Time diazepam [From Valium] Allergy Severe Swelling Verified 03/17/24 08:49 of Lip/Tongue/Throat clindamycin Allergy Mild RASH Verified 03/17/24 08:49 doxycycline Allergy Unknown RASH Verified 03/17/24 08:49 azithromycin AdvReac Unknown THROW UP Verified 03/17/24 08:49 CT Contrast/Dye Allergy Severe Difficulty Uncoded 03/17/24 08:49 Breathing Patient History Medical History Tingling of both upper extremities Orthostatic hypertension Lumbar facet arthropathy Lumbar degenerative disc disease Lumbar spondylosis Low back pain Diabetes type 2, controlled Chronic anticoagulation Schatzki's ring of distal esophagus (~03/20/21) Enteritis Sensorineural hearing loss, bilateral Subungual hematoma of great toe DVT (deep venous thrombosis) (~2013) DVT of axillary vein, chronic left Lichen planus Obstructive sleep apnea of adult Obesity (BMI 30-39.9) Hyperlipidemia Irritable larynx syndrome Osteoarthritis of right knee Plantar warts Eczema Osteoarthritis Sleep apnea (~2015) Shoulder pain Hepatitis B (~1976) History of ovarian cyst Infertility Fibroids Abnormal Pap smear of cervix Gastro-esophageal reflux disease with esophagitis Hayfever (1966) Measles Mumps Rosacea (2008) Acne (1970) History of torn meniscus of left knee (2012) Retinal detachment, left (2010) Retinal detachment, right (2011) PCOS (polycystic ovarian syndrome) (1974) Hypothyroidism (2009) Postoperative pulmonary embolism (2013) Anaphylactic reaction Surgical History Anesthesia History of surgical removal of meniscus of knee (09/03/13) History of eye surgery (05/15/12) History of eye surgery (02/27/11) History of sinus surgery (1987) Status post surgical removal of neoplasm of skin (1957) Status post endometrial ablation (2005) History of knee replacement (05/13/14) Status post loop electrosurgical excision procedure (LEEP) of cervix (01/2006) Status post delivery (06/1981) Status post delivery (12/1984) History of tonsillectomy (1964) Family History Father Heart disease Mother Osteoporosis Stroke Celiac disease Glaucoma COPD (chronic obstructive pulmonary disease) Emphysema lung Sister Age: 64 Alcoholic Drug abuse Hepatitis C Son No problems noted. Son [id number] transgender person PCOS (polycystic ovarian syndrome) Social History household members: spouse Smoking Status: Never smoker alcohol intake: current Smoking Status: Never smoker alcohol intake frequency: holidays/special occasions only Substance Use Type: does not use Exam Initial Vital Signs Initial Vital Signs: Vital Signs Pulse Rate 107 H 03/27/24 08:04 Pulse Oximetry 99 03/27/24 08:04 GENERAL: Alert pleasant 68-year-old female and in [no acute] distress. HEENT: Head atraumatic,EOMI, pupils reactive, face symmetric, [moist] mucous membranes CARDIOVASCULAR: Regular rate and rhythm without murmurs, rubs or gallops. RESPIRATORY: Breath sounds equal bilaterally, no wheezes rales or rhonchi. ABDOMEN: Soft, nontender. Normoactive bowel sounds all 4 quadrants. No guarding or rebound. : No CVA tenderness EXTREMITIES: Normal range of motion, no clubbing or edema. Neurovascularly intact NEUROLOGICAL: Alert and oriented x4. Significant weakness in bilateral lower extremities little bit worse on the right than the left she has good sensation but can not lift against gravity with either leg. Arms she can lift and hold but she has shaking she is good sensation and non destructive tester strength in her arms SKIN: Warm, dry, no laceration, no petechiae, no rashes or lesions. Course Orders Ordered: ED Orders 03/27/24 08:10 Complete Blood Count AUTO DIFF Stat Comprehensive Metabolic Panel Stat Lipase Stat Troponin & CK Cardiac Panel Stat 03/27/24 08:27 MR cervical spine wo con Stat MR lumbar spine wo con Stat MR thoracic spine wo con Stat XR chest 1V Stat EKG-12 Lead Stat Discontinued Medications Dexamethasone (Dexamethasone 10 Mg/Ml Vial) 10 mg IV NOW ONE Stop: 03/27/24 11:58 Last Admin: 03/27/24 12:07 Dose: 10 mg Documented By: FERNANDA Hydromorphone HCl (Hydromorphone 0.5 Mg Inj) 0.5 mg IV NOW ONE Stop: 03/27/24 09:58 Last Admin: 03/27/24 10:01 Dose: 0.5 mg Documented By: FERNANDA Morphine Sulfate (Morphine 2 Mg/Ml Inj) 2 mg IV NOW ONE Stop: 03/27/24 09:27 Last Admin: 03/27/24 09:33 Dose: 2 mg Documented By: EFFIE Ondansetron HCl (Ondansetron 4 Mg/2 Ml Inj) 4 mg IV NOW ONE Stop: 03/27/24 09:27 Last Admin: 03/27/24 09:33 Dose: 4 mg Documented By: EFFIE Vital Signs Vital signs: Vital Signs - 8 hr 03/27/24 08:04 03/27/24 08:06 03/27/24 08:06 Temperature Pulse Rate 107 H 98 H Respiratory Rate Blood Pressure 189/101 H Pulse Oximetry 99 99 Oxygen Delivery Method 03/27/24 08:11 03/27/24 08:16 03/27/24 08:16 Temperature 98.6 F Pulse Rate 102 H 105 H Respiratory Rate 16 20 Blood Pressure 189/101 H 160/119 H Pulse Oximetry 99 100 Oxygen Delivery Method Room Air Room Air 03/27/24 08:30 03/27/24 08:46 03/27/24 08:46 Temperature Pulse Rate 74 87 Respiratory Rate 20 Blood Pressure 180/98 H Pulse Oximetry 100 98 Oxygen Delivery Method 03/27/24 09:00 03/27/24 09:00 03/27/24 09:16 Temperature Pulse Rate 94 H 82 Respiratory Rate 25 H 22 Blood Pressure 177/90 H Pulse Oximetry 96 96 Oxygen Delivery Method Room Air 03/27/24 09:16 03/27/24 09:30 03/27/24 09:30 Temperature Pulse Rate 84 Respiratory Rate 17 Blood Pressure 145/67 H 159/78 H Pulse Oximetry 98 Oxygen Delivery Method 03/27/24 09:46 03/27/24 09:46 03/27/24 10:53 Temperature Pulse Rate 82 78 Respiratory Rate Blood Pressure 189/83 H Pulse Oximetry 98 97 Oxygen Delivery Method Room Air 03/27/24 10:58 03/27/24 10:58 03/27/24 11:00 Temperature Pulse Rate 83 91 H Respiratory Rate Blood Pressure 150/74 H Pulse Oximetry 96 97 Oxygen Delivery Method 03/27/24 11:05 03/27/24 11:05 03/27/24 11:15 Temperature Pulse Rate 76 Respiratory Rate Blood Pressure 142/80 H 145/72 H Pulse Oximetry 98 Oxygen Delivery Method Room Air 03/27/24 11:15 03/27/24 11:30 03/27/24 11:33 Temperature Pulse Rate 70 70 73 Respiratory Rate Blood Pressure Pulse Oximetry 98 95 98 Oxygen Delivery Method Room Air 03/27/24 11:33 03/27/24 11:46 03/27/24 11:46 Temperature Pulse Rate 75 Respiratory Rate Blood Pressure 139/77 128/75 Pulse Oximetry 96 Oxygen Delivery Method 03/27/24 12:00 03/27/24 12:00 03/27/24 12:15 Temperature Pulse Rate 75 Respiratory Rate Blood Pressure 144/70 H 129/61 Pulse Oximetry 98 Oxygen Delivery Method Room Air 03/27/24 12:15 03/27/24 12:30 Temperature Pulse Rate 70 77 Respiratory Rate Blood Pressure Pulse Oximetry 98 97 Oxygen Delivery Method MDM - Neuro Symptoms/Deficit Lab Data 03/27/24 08:10 03/27/24 08:10 Labs: Lab Results 03/27/24 Range/Units 08:10 WBC 6.1 (4.5-11.0) X10^3/uL RBC 4.63 (4.0-5.2) X10^6/uL Hgb 14.2 (12.0-16.0) g/dL Hct 42.1 (36-46) % MCV 91.0 (80-100) fL MCH 30.7 (26-34) PG MCHC 33.8 (30-36) % RDW 12.9 (11.6-14.8) % Plt Count 214 (150-400) X10^3/uL Neut % (Auto) 68.6 (50-75) % Lymph % (Auto) 18.9 L (25-40) % Newton % (Auto) 8.2 (3-14) % Eos % (Auto) 3.5 (2-4) % Baso % (Auto) 0.8 (0-2) % Neut # (Auto) 4200 (8587-1007) /uL Lymph # (Auto) 1200 (6621-0572) /uL Newton # (Auto) 500 (0-900) /uL Eos # (Auto) 200 (0-450) /uL Baso # (Auto) 0 (0-100) /uL Sodium 139 (137-145) mmol/L Potassium 4.1 (3.4-5.1) mmol/L Chloride 104 (98-107) mmol/L Carbon Dioxide 27 (22-32) mmol/L BUN 20 H (7-17) mg/dL Creatinine 0.67 (0.52-1.04) mg/dL Estimated GFR > 60 (>60) mL/min BUN/Creatinine Ratio 29.9 H (6-22) Glucose 117 H (80-110) mg/dL Calcium 10.0 (8.4-10.2) mg/dL Total Bilirubin 0.8 (0.2-1.3) mg/dL AST 33 (14-36) IU/L ALT 31 (<35) IU/L Alkaline Phosphatase 96 (38-126) U/L Total Creatine Kinase 75 (30-135) U/L Troponin I < 0.012 (0.01-0.034) ng/mL Total Protein 7.7 (6.3-8.2) g/dL Albumin 4.7 (3.5-5.0) g/dL Globulin 3.0 (1.7-4.1) g/dL Albumin/Globulin Ratio 1.6 (1.0-2.8) Lipase 70 (23-300) U/L Imaging Data MR cervical: Radiologist's Impression: PROCEDURE: MR CERVICAL SPINE WO CON INDICATIONS: weakness both arms and legs TECHNIQUE: Noncontrast sagittal T1 spin echo and T2 fast spin echo, sagittal STIR, foraminal oblique sagittal T2 fast spin echo, and axial gradient echo or T2 fast spin echo through the cervical spine. COMPARISON: None. FINDINGS: Image quality: Excellent. Alignment and Curvature: Mild anterolisthesis of C4 on C5. Straightening of the cervical lordosis. Bone Marrow: Marrow demonstrates normal overall signal. Spinal Cord: Visualized spinal cord has normal size and signal. No cerebellar tonsillar herniation. Paraspinous Soft Tissues: No paravertebral masses. Prevertebral soft tissues are normal in thickness. C2-C3: Disc desiccation. No central canal stenosis. No neural foraminal stenosis. C3-C4: Disc desiccation. No central canal stenosis. Facet and uncovertebral arthropathy. Moderate left and no right neural foraminal stenosis. C4-C5: Disc desiccation and mild posterior disc osteophyte complex. Mild central canal stenosis. Facet and uncovertebral arthropathy. Moderate left and no right neural foraminal stenosis. C5-C6: Disc desiccation and mild posterior disc osteophyte complex. Moderate central canal stenosis. Facet and uncovertebral arthropathy. Moderate right and no left neural foraminal stenosis. C6-C7: Disc desiccation and mild posterior disc osteophyte complex. Moderate central canal stenosis. Facet and uncovertebral arthropathy. Moderate left and mild right neural foraminal stenosis. C7-T1: Disc desiccation and posterior disc osteophyte complex. Central disc protrusion. Moderate central canal stenosis. Facet and uncovertebral arthropathy without significant neural foraminal stenosis. IMPRESSION: 1. Multilevel degenerative changes of the cervical spine as described above. 2. Moderate central canal stenosis at C5-C6, C6-C7 and C7-T1. 3. Moderate neural foraminal stenosis on the left at C3-C4, C4-C5 and C6-C7 and on the right at C5-C6. Dictated by: Abram Angel M.D. on 03/27/2024 at 11:04 MR thoracic: Radiologist's Impression: PROCEDURE: MR THORACIC SPINE WO CON INDICATIONS: weakness both arms and legs TECHNIQUE: Noncontrast sagittal T1 spine echo and T2 fast spin echo, sagittal STIR, and T2 fast spin echo through the thoracic spine. COMPARISON: None. FINDINGS: Image quality: Excellent. Alignment and Curvature: There is normal bony alignment. Bone Marrow: Marrow is of normal overall signal. No acute vertebral body compression fractures. Spinal Cord: Visualized spinal cord is normal in size and signal. Paraspinous Soft Tissues: No paravertebral masses. Miscellaneous: Mild multilevel disc desiccation height loss with minimal posterior disc bulges. On axial images, central canal and foramina appear widely patent at all scanned levels. IMPRESSION: Mild degenerative changes without central canal or neural foraminal stenosis. Dictated by: Abram Angel M.D. on 03/27/2024 at 11:08 MR lumbar: Radiologist's Impression: PROCEDURE: MR LUMBAR SPINE WO CON INDICATIONS: can't lift legs bilateral, known central canal stenosis L3-4 TECHNIQUE: Noncontrast sagittal T1 spin echo and T2 fast echo, sagittal STIR, and T2 fast spin echo through the lumbar spine. In cases with scoliosis, additional coronal T2 fast spin echo may be performed. COMPARISON: [facility], MR, MR LUMBAR SPINE WO CON, 05/29/2022, 12:07. FINDINGS: Image quality: Excellent. Alignment and Curvature: Mild anterolisthesis of L3 on L4. Bone Marrow: Marrow is of normal overall signal. No acute vertebral body compression fractures. Spinal Cord: Conus medullaris terminates at the L1 level. Visualized cord demonstrates normal signal and size. Paraspinous Soft Tissues: No paravertebral masses. Simple appearing left renal cyst. T12-L1: Normal appearance. L1-L2: Mild disc desiccation and disc bulge. Facet arthropathy. No significant central canal or neural foraminal stenosis. L2-L3: Disc desiccation and mild height loss. Diffuse disc bulge. Facet arthropathy and thickening of ligamentum flavum. Mild central canal stenosis. No neural foraminal stenosis. L3-L4: Anterolisthesis. Disc desiccation and height loss. Posterior disc bulge. Facet arthropathy and thickening of ligamentum flavum. Moderate to severe central canal stenosis is similar to prior. No significant neural foraminal stenosis. L4-L5: Disc desiccation and posterior disc bulge. Facet arthropathy and thickening of ligamentum flavum. Stable mild central canal stenosis. Stable mild narrowing of the lateral recesses. No significant neural foraminal stenosis. L5-S1: Facet arthropathy. No significant central canal or neural foraminal stenosis. IMPRESSION: 1. Multilevel degenerative changes of the lumbar spine are similar in appearance compared to prior exam. 2. Stable moderate to severe central canal stenosis at L3-L4. 3. No significant neural foraminal stenosis throughout. Dictated by: Abram Angel M.D. on 03/27/2024 at 11:09 ECG Data Attestation: I personally reviewed and interpreted this ECG as follows: Interpretation: Normal sinus rhythm rate 72 DE interval 140 QRS [address] changes similar to prior EKG in November MDM Narrative Medical decision making narrative: Patient is 68-year-old female with history of hypertension hyperlipidemia with known central canal stenosis in lumbar region presenting today with increasing lower extremity bilateral weakness. She actually has good arm strength but she reports intermittent weakness bilaterally in upper extremities as well. Initially on exam she was barely able to lift either leg. She would good sensation and no cauda equina symptoms but significant increased inability to ambulate. Blood work has been reviewed: CBC: No leukocytosis no anemia CMP: No electrolyte abnormality creatinine 0.6 glucose 117, troponin negative AST ALT and bilirubin normal EKG has been reviewed and no acute ischemia Chest x-ray no acute cardiopulmonary process MRI cervical spine does show central canal stenosis throughout MRI thoracic is unremarkable MRI lumbar does show significant central canal stenosis moderate to severe most prominent L3-L4 Upon reexamination patient is able to bend her knees and move her lower extremities much easier 11:48 Dr. Montes De Oca updated on patient's symptoms test results and MRI results. He reports putting patient on Medrol Dosepak in his happy to see patient out patient next week Further discussion with family report that she has a neurosurgeon in [place] however they would like a 2nd opinion they report what was offered is some sort of injection. It has not been set up for scheduled yet. Discharge Plan Departure Patient Disposition: Home Clinical Impression: Lumbosacral radiculopathy at L3 Instructions: DI for Cervical Radiculopathy, DI for Lumbar Radiculopathy Activity Restrictions/Additional Instructions: *You have been diagnosed with radiculopathy *What to do: At this time it was recommended that you start a steroid. Dr. Miller to call his office today or Saturday so that he can see you in clinic on Saturday *Continue to take medications as directed Medrol Dosepak take as prescribed *Follow up with your primary care provider in 2-3 days or call [phone] *Return to ER if you should have increasing lower extremity weakness loss of urine or stool or any new, worsening or concerning symptoms Prescriptions: New methylprednisolone [Medrol (Anam)] 4 mg tablets,dose pack See Rx Instructions .ROUTE .COMPLEX Qty: 21 0RF Rx Instructions: for 6 days No Action ipratropium bromide 42 mcg (0.06 %) spray,non-aerosol 2 spray intranasal TID PRN (Reason: allergy symptoms) Qty: 15 0RF Rx Instructions: administer into each nostril Xarelto 10 mg tablet 10 mg PO DAILY levothyroxine [Synthroid] 50 mcg tablet 50 mcg PO DAILY Qty: 90 3RF (DME) lancets Misc See Rx Instructions .Route Qty: 100 0RF Rx Instructions: Test blood glucose once daily (DME) lancets [TRUEplus Lancets] 28 gauge misc See Rx Instructions .Route Qty: 200 2RF Rx Instructions: As directed atorvastatin 40 mg tablet 40 mg PO ONCE PM Qty: 90 3RF losartan 25 mg tablet 25 mg PO DAILY Qty: 90 3RF (DME) True Metrix Glucose Test Strip Strip See Rx Instructions .Route Qty: 100 3RF Rx Instructions: Test blood glucose 2-4 times daily betamethasone dipropionate 0.05 % cream 1 applic topical DAILY PRN (Reason: itching) Qty: 45 3RF (DME) blood-glucose meter Kit See Rx Instructions .Route Qty: 1 0RF Rx Instructions: As directed gabapentin 300 mg capsule 600 mg PO TID 90 Days Qty: 540 3RF clobetasol 0.05 % ointment 1 applic topical DAILY Qty: 45 3RF Rx Instructions: apply to affected area every other day metoclopramide HCl 5 mg tablet 5 mg PO QAC Qty: 60 1RF Rx Instructions: administer 30 minutes before meals twice per day omeprazole 40 mg capsule,delayed release(DR/EC) 40 mg PO BID epinephrine [EpiPen 2-Anam] 0.3 mg/0.3 mL auto-injector 0.3 mg IM Q5-15M PRN (Reason: anaphylaxis) Qty: 2 0RF Rx Instructions: do not exceed 3 doses per episode Referrals: Daniela Greer ARNP [Primary Care Provider] - Stand Alone Forms: Patient Portal/API
--- NOTE | 2024-03-27 08:27 | DI.RAD.S_ITS ---
PROCEDURE: XR CHEST 1V INDICATIONS: chest pain TECHNIQUE: One view of the chest was acquired. COMPARISON: None. FINDINGS: Surgical changes and devices: None. Lungs and pleura: Lungs are clear. No pleural effusions or pneumothorax. Mediastinum: Mediastinal contours appear normal. Heart size is normal. Bones and chest wall: No suspicious bony lesions. Overlying soft tissues appear unremarkable. IMPRESSION: No acute cardiopulmonary abnormality is seen. Dictated by: Abram Angel M.D. on 03/27/2024 at 9:35 Approved by: Abram Angel M.D. on 03/27/2024 at 9:35
--- NOTE | 2024-03-27 08:27 | EKG_ITS ---
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
--- NOTE | 2024-03-27 08:27 | DI.MRI.S_ITS ---
PROCEDURE: MR CERVICAL SPINE WO CON INDICATIONS: weakness both arms and legs TECHNIQUE: Noncontrast sagittal T1 spin echo and T2 fast spin echo, sagittal STIR, foraminal oblique sagittal T2 fast spin echo, and axial gradient echo or T2 fast spin echo through the cervical spine. COMPARISON: None. FINDINGS: Image quality: Excellent. Alignment and Curvature: Mild anterolisthesis of C4 on C5. Straightening of the cervical lordosis. Bone Marrow: Marrow demonstrates normal overall signal. Spinal Cord: Visualized spinal cord has normal size and signal. No cerebellar tonsillar herniation. Paraspinous Soft Tissues: No paravertebral masses. Prevertebral soft tissues are normal in thickness. C2-C3: Disc desiccation. No central canal stenosis. No neural foraminal stenosis. C3-C4: Disc desiccation. No central canal stenosis. Facet and uncovertebral arthropathy. Moderate left and no right neural foraminal stenosis. C4-C5: Disc desiccation and mild posterior disc osteophyte complex. Mild central canal stenosis. Facet and uncovertebral arthropathy. Moderate left and no right neural foraminal stenosis. C5-C6: Disc desiccation and mild posterior disc osteophyte complex. Moderate central canal stenosis. Facet and uncovertebral arthropathy. Moderate right and no left neural foraminal stenosis. C6-C7: Disc desiccation and mild posterior disc osteophyte complex. Moderate central canal stenosis. Facet and uncovertebral arthropathy. Moderate left and mild right neural foraminal stenosis. C7-T1: Disc desiccation and posterior disc osteophyte complex. Central disc protrusion. Moderate central canal stenosis. Facet and uncovertebral arthropathy without significant neural foraminal stenosis. IMPRESSION: 1. Multilevel degenerative changes of the cervical spine as described above. 2. Moderate central canal stenosis at C5-C6, C6-C7 and C7-T1. 3. Moderate neural foraminal stenosis on the left at C3-C4, C4-C5 and C6-C7 and on the right at C5-C6. Dictated by: Abram Angel M.D. on 03/27/2024 at 11:04 Approved by: Abram Angel M.D. on 03/27/2024 at 11:08
--- NOTE | 2024-03-27 08:27 | DI.MRI.S_ITS ---
PROCEDURE: MR THORACIC SPINE WO CON INDICATIONS: weakness both arms and legs TECHNIQUE: Noncontrast sagittal T1 spine echo and T2 fast spin echo, sagittal STIR, and T2 fast spin echo through the thoracic spine. COMPARISON: None. FINDINGS: Image quality: Excellent. Alignment and Curvature: There is normal bony alignment. Bone Marrow: Marrow is of normal overall signal. No acute vertebral body compression fractures. Spinal Cord: Visualized spinal cord is normal in size and signal. Paraspinous Soft Tissues: No paravertebral masses. Miscellaneous: Mild multilevel disc desiccation height loss with minimal posterior disc bulges. On axial images, central canal and foramina appear widely patent at all scanned levels. IMPRESSION: Mild degenerative changes without central canal or neural foraminal stenosis. Dictated by: Abram Angel M.D. on 03/27/2024 at 11:08 Approved by: Abram Angel M.D. on 03/27/2024 at 11:09
--- NOTE | 2024-03-27 08:27 | DI.MRI.S_ITS ---
PROCEDURE: MR LUMBAR SPINE WO CON INDICATIONS: can't lift legs bilateral, known central canal stenosis L3-4 TECHNIQUE: Noncontrast sagittal T1 spin echo and T2 fast echo, sagittal STIR, and T2 fast spin echo through the lumbar spine. In cases with scoliosis, additional coronal T2 fast spin echo may be performed. COMPARISON: [facility], MR, MR LUMBAR SPINE WO CON, 05/29/2022, 12:07. FINDINGS: Image quality: Excellent. Alignment and Curvature: Mild anterolisthesis of L3 on L4. Bone Marrow: Marrow is of normal overall signal. No acute vertebral body compression fractures. Spinal Cord: Conus medullaris terminates at the L1 level. Visualized cord demonstrates normal signal and size. Paraspinous Soft Tissues: No paravertebral masses. Simple appearing left renal cyst. T12-L1: Normal appearance. L1-L2: Mild disc desiccation and disc bulge. Facet arthropathy. No significant central canal or neural foraminal stenosis. L2-L3: Disc desiccation and mild height loss. Diffuse disc bulge. Facet arthropathy and thickening of ligamentum flavum. Mild central canal stenosis. No neural foraminal stenosis. L3-L4: Anterolisthesis. Disc desiccation and height loss. Posterior disc bulge. Facet arthropathy and thickening of ligamentum flavum. Moderate to severe central canal stenosis is similar to prior. No significant neural foraminal stenosis. L4-L5: Disc desiccation and posterior disc bulge. Facet arthropathy and thickening of ligamentum flavum. Stable mild central canal stenosis. Stable mild narrowing of the lateral recesses. No significant neural foraminal stenosis. L5-S1: Facet arthropathy. No significant central canal or neural foraminal stenosis. IMPRESSION: 1. Multilevel degenerative changes of the lumbar spine are similar in appearance compared to prior exam. 2. Stable moderate to severe central canal stenosis at L3-L4. 3. No significant neural foraminal stenosis throughout. Dictated by: Abram Angel M.D. on 03/27/2024 at 11:09 Approved by: Abram Angel M.D. on 03/27/2024 at 11:13
[2024-03-27 08:45] LABS: Add Manual Diff / Slide Review NO; Basophils Absolute Auto 0 /uL (0-100); Basophils Percent Auto 0.8 % (0-2); Eosinophils Absolute Auto 200 /uL (0-450); Eosinophils Percent Auto 3.5 % (2-4); Hematocrit 42.1 % (36-46); Hemoglobin 14.2 g/dL (12.0-16.0); Lymphocytes Absolute Auto 1200 /uL (1100-4500); Lymphocytes Percent Auto 18.9 % (25-40); Mean Corpuscular HGB Conc 33.8 % (30-36); Mean Corpuscular Hemoglobin 30.7 PG (26-34); Monocytes Absolute Auto 500 /uL (0-900); Monocytes Percent Auto 8.2 % (3-14); Neutrophils Absolute Auto 4200 /uL (1500-7000); Neutrophils Percent Auto 68.6 % (50-75); Platelet Count 214 X10^3/uL (150-400); Red Blood Cell Count 4.63 X10^6/uL (4.0-5.2); Red Cell Distribution Width 12.9 % (11.6-14.8); White Blood Cell Count 6.1 X10^3/uL (4.5-11.0)
--- NOTE | 2024-03-27 08:51 | PC.NURSE ---
Patient able to partially assist with repositioning up to [facility] for urine sample. Pt has difficulty lifting feet off the ground, requiring 2 person assist. Has sensation in bilateral upper and lower extremity.
[2024-03-27 08:54] LABS: Alanine Aminotransferase 31 IU/L (<35); Albumin 4.7 g/dL (3.5-5.0); Albumin Globulin Ratio 1.6 (1.0-2.8); Alkaline Phosphatase 96 U/L (38-126); Aspartate Aminotransferase 33 IU/L (14-36); BUN Creatinine Ratio 29.9 (6-22); Bilirubin Total 0.8 mg/dL (0.2-1.3); Blood Urea Nitrogen 20 mg/dL (7-17); Carbon Dioxide 27 mmol/L (22-32); Chloride 104 mmol/L (98-107); Creatine Kinase 75 U/L (30-135); Estimated Glomerular Filt Rate > 60 mL/min (>60); Glucose 117 mg/dL (80-110); HEMOLYSIS < 15 (0-50); Lipase 70 U/L (23-300); Potassium 4.1 mmol/L (3.4-5.1); Sodium 139 mmol/L (137-145); Total Protein 7.7 g/dL (6.3-8.2)
[2024-03-27 09:05] LABS: Troponin I < 0.012 ng/mL (0.01-0.034)
[2024-03-27] MEDS: ONDANSETRON 4 MG/2 ML INJ IV (09:33)
[2024-03-27] MEDS: MORPHINE 2 MG/ML INJ IV (09:33)
[2024-03-27] MEDS: HYDROMORPHONE 0.5 MG INJ IV (10:01)
[2024-03-27] MEDS: DEXAMETHASONE 10 MG/ML VIAL IV (12:07)
--- NOTE | 2024-03-28 22:48 | PC.NURSE ---
Pt and called to ask what should be done about having hallucinations with new medication Methylprednisolone. Advised them that medication should be stopped, but if symptoms worsen from her current improvement then to return to ER for further evaluation. Since pt has a neurologist and has been working on this for the last few months that they should contact the office logistics loss prevention manager provider and again to follow up with them Saturday morning.
== END 2024-03-27 12:48 | disposition home or self-care (01) ==
PROVIDERS: Emergency Provider Emergency Medicine; Family Provider Nurse Practitioner; PCP Nurse Practitioner
DX: M54.17 Radiculopathy, lumbosacral region (principal); Z79.01 Long term (current) use of anticoagulants; Z79.899 Other long term (current) drug therapy
CPT/HCPCS: 36415; 71045; 72141; 72146; 72148; 80053; 82550; 83690; 84484; 85025; 93005; 96374; 96375; 99284; J1100; J1170; J2270; J2405

== ENCOUNTER → 2024-04-02 13:33 | Outpatient (CLI) | payer MEDICARE, OTHER, SELFPAY ==
[2023-10-23 14:52] VITALS: BMI 36.1
--- NOTE | 2024-04-02 14:00 | DI.CT.S_ITS ---
PROCEDURE: CT HEAD/BRAIN WO CON INDICATIONS: bilat numbness and tingling of UE/LE TECHNIQUE: Noncontrast 4.5 mm thick angled axial sections acquired from the foramen magnum to the vertex, with coronal and sagittal reformats. For radiation dose reduction, the following was used: automated exposure control, adjustment of mA and/or kV according to patient size. COMPARISON: [facility], CT, CT HEAD/BRAIN WO CON, 05/31/2022, 14:51. FINDINGS: Image quality: Diagnostic CSF spaces: Basal cisterns are patent. Lateral ventricles are symmetric. Volume: Vascular calcifications. Periventricular white matter disease is commonly seen with chronic microangiopathy. Volume loss is present. These findings are [id number] Brain: No acute hemorrhage or gross loss of mcfarland-white differentiation Craniofacial structures: No significant paranasal sinus opacity IMPRESSION: No acute intracranial abnormality. If there is high concern for parenchymal pathology, consider further evaluation with MRI. Dictated by: Ashish Ruggiero M.D. on 04/02/2024 at 14:08 Approved by: Ashish Ruggiero M.D. on 04/02/2024 at 14:10
--- NOTE | 2024-04-02 14:30 | DI.CT.S_ITS ---
PROCEDURE: CT CERVICAL SPINE WO CON INDICATIONS: bilat numbness and tingling of UE/LE TECHNIQUE: Noncontrast 3 mm thick sections acquired from the skull base to the T4 level. Sagittal and coronal reformats were then constructed. For radiation dose reduction, the following was used: automated exposure control, adjustment of mA and/or kV according to patient size. COMPARISON: None. FINDINGS: Image quality: Diagnostic Bones: Mild degenerative changes. No displaced fracture or traumatic subluxation there is straightening of the normal cervical lordosis Soft tissues: No apical pneumothorax. Prevertebral soft tissues are nonthickened. Vascular calcifications IMPRESSION: No displaced fracture or traumatic subluxation. Mild background degenerative changes. If there is high concern for further derangement, consider MRI evaluation. Dictated by: Ashish Ruggiero M.D. on 04/02/2024 at 14:10 Approved by: Ashish Ruggiero M.D. on 04/02/2024 at 14:11
== END ==
PROVIDERS: Family Provider Nurse Practitioner; PCP Nurse Practitioner; Referring Provider Nurse Practitioner; Visit Provider Nurse Practitioner
DX: R20.0 Anesthesia of skin (principal); R20.2 Paresthesia of skin
CPT/HCPCS: 70450; 72125

== ENCOUNTER → 2024-04-03 07:30 | Outpatient (CLI) | payer MEDICARE, OTHER, SELFPAY ==
[2023-10-23 14:52] VITALS: BMI 36.1
--- NOTE | 2024-04-03 08:00 | DI.MRI.S_ITS ---
PROCEDURE: MR HEAD/BRAIN WO/W CON INDICATIONS: UE and LE weakness, rule out MS TECHNIQUE: Noncontrast axial T1 spin echo, axial T2 fast spin echo, sagittal and axial FLAIR, coronal T2 fast spin echo, axial gradient echo, axial diffusion and ADC through the brain. After the administration of contrast, axial and coronal and sagittal 3D VIBE or T1 spin echo with fat saturation through the brain. COMPARISON: None. FINDINGS: Image quality: Excellent. CSF Spaces: Basal cisterns are patent. No extra-axial fluid collections. Ventricles are normal in size and shape. Brain: No midline shift. No intracranial bleeds or masses. No abnormal intracranial enhancement. The brainstem appears normal. Diffusion-weighted images demonstrate no acute infarct. No chronic ischemic insults. Normal intravascular flow voids are present. Skull and face: Calvarial marrow is normal in signal. Orbits appear normal. Sinuses: Sinuses and mastoids appear clear. IMPRESSION: Mild microvascular atherosclerotic change in the deep white matter of each hemisphere, expected for age. No area of prior infection or infarction is found. No vascular abnormality or contrast enhancing lesion identified. Dictated by: Dickson Hernandez M.D. on 04/03/2024 at 9:09 Approved by: Dickson Hernandez M.D. on 04/03/2024 at 9:11
== END ==
PROVIDERS: Family Provider Nurse Practitioner; PCP Nurse Practitioner; Referring Provider Nurse Practitioner; Visit Provider Nurse Practitioner
DX: R29.898 Other symptoms and signs involving the musculoskeletal system (principal); M54.6 Pain in thoracic spine
CPT/HCPCS: 70553; A9579

== ENCOUNTER → 2024-05-21 15:54 | Outpatient (CLI) | payer MEDICARE, OTHER, SELFPAY ==
[2023-10-23 14:52] VITALS: BMI 36.1
--- NOTE | 2024-05-21 15:55 | DI.MG.S_ITS ---
BILATERAL DIGITAL SCREENING MAMMOGRAM 3D/2D WITH CAD: 05/21/2024 CLINICAL: Routine screening. Comparison is made to exams dated: 02/18/2023 mammogram, 01/29/2022 mammogram, and 10/20/2020 mammogram - [facility]. There are scattered areas of fibroglandular density (category b / 25%-50% glandular tissue). Current study was also evaluated with a Computer Aided Detection (CAD) system. No significant masses, calcifications, or other findings are seen in either breast. There has been no significant interval change. IMPRESSION: NEGATIVE There is no mammographic evidence of malignancy. A 1 year screening mammogram is recommended. Based on the Tyrer Cuzick model (a risk assessment model) the patient's lifetime risk is 5.7% and her 10 year risk is 3.1%. According to the ACR, ACS, and NCCN guidelines, an annual breast MRI exam along with mammogram is recommended if the patient's lifetime risk is 20% or greater. This exam was interpreted at Station ID: [id number]. NOTE: For mammograms, a report in lay terms will be sent to the patient. Approximately 15% of breast malignancies will not be visualized mammographically. In the management of a palpable breast mass, a negative mammogram must not discourage biopsy of a clinically suspicious lesion. Electronically Signed By: Angel canales/pasha:05/22/2024 12:19:44 letter sent: Normal Exam ACR BI-RADS Category 1: Negative
== END ==
PROVIDERS: Family Provider Nurse Practitioner; PCP Family Medicine; Referring Provider Family Medicine; Visit Provider Family Medicine
DX: Z12.31 Encounter for screening mammogram for malignant neoplasm of breast (principal)
CPT/HCPCS: 77063; 77067

== ENCOUNTER 2024-09-24 08:15 | Outpatient (RCR) | payer MEDICARE, OTHER, SELFPAY ==
[2023-10-23 14:52] VITALS: BMI 36.1
--- NOTE | 2024-04-28 17:18 | PT.OIE ---
Current Diagnoses Other chronic pain (04/28/24) Spondylosis without myelopathy or radiculopathy, lumbar region (04/28/24) Other intervertebral disc degeneration, lumbar region (04/28/24) Cervicalgia (04/28/24) Low back pain, unspecified (04/28/24) Anesthesia of skin (04/28/24) Paresthesia of skin (04/28/24) Unsteadiness on feet (04/28/24) Other symptoms and signs involving the musculoskeletal system (04/28/24) Past Medical History (Last Updated 04/01/24 @ 11:17 by MARIBEL Saavedra) Abnormal Pap smear of cervix Acne (1969) Anaphylactic reaction Bilateral numbness and tingling of arms and legs Chronic anticoagulation Diabetes type 2, controlled DVT (deep venous thrombosis) (~2013) DVT of axillary vein, chronic left Eczema Enteritis Fibroids Gastro-esophageal reflux disease with esophagitis Hayfever (1966) Hepatitis B (~1976) History of ovarian cyst History of torn meniscus of left knee (2012) Hyperlipidemia Hypothyroidism (2009) Infertility Irritable larynx syndrome Lichen planus Low back pain Lower extremity weakness Lumbar degenerative disc disease Lumbar facet arthropathy Lumbar spondylosis Measles Mumps Obesity (BMI 30-39.9) Obstructive sleep apnea of adult Orthostatic hypertension Osteoarthritis Osteoarthritis of right knee PCOS (polycystic ovarian syndrome) (1974) Plantar warts Postoperative pulmonary embolism (2013) Prednisone adverse reaction Retinal detachment, left (2010) Retinal detachment, right (2011) Rosacea (2008) Schatzki's ring of distal esophagus (~03/20/21) Sensorineural hearing loss, bilateral Shoulder pain Sleep apnea (~2015) Subungual hematoma of great toe Tingling of both upper extremities Unsteady gait when walking Past Surgical History (Last Reviewed 03/27/24 @ 08:33 by Katalina Sánchez DO) Anesthesia History of eye surgery (02/27/11) History of eye surgery (05/15/12) History of knee replacement (05/13/14) History of sinus surgery (1987) History of surgical removal of meniscus of knee (09/03/13) History of tonsillectomy (1964) Status post delivery (12/1984) Status post delivery (06/1981) Status post endometrial ablation (2005) Status post loop electrosurgical excision procedure (LEEP) of cervix (01/2006) Status post surgical removal of neoplasm of skin (1957) Visit Care Team Role Provider Type MARIBEL Saavedra Family Provider Advanced District Director Primary Care Provider Referring Provider Specialty: Family Practice Address: [address] [place] [address], [id number] Email: [email or web address] Minnie Stone DPM Attending Provider Physician Specialty: Orthopedics Orthopedic Surgery Podiatry Address: [address] [place] [address], [id number] Email: [email or web address] Physical Therapy Initial Evaluation PT-OP-A Visit Information Start: 04/28/24 15:22 Freq: Status: Active Protocol: Document 04/28/24 15:22 [facility] (Rec: 04/28/24 17:18 [facility] [id number]) Out-Patient Physical Therapy Visit Information Visit Information Visit Type Initial Evaluation Visit Start Time 15:22 Visit Stop Time 16:10 Visit Number 1 Number of COAL PICKER Visits 0 PT-OP-B Current Condition Start: 04/28/24 15:22 Freq: Status: Active Protocol: Document 04/28/24 15:22 [facility] (Rec: 04/28/24 17:18 [facility] [id number]) Current Condition History of Current Condition Onset Date about 2 months w/hx prior Current Complaints back pain, thoracic pain, body stiffness History of Current Condition Pt has had a lot of stress d/t past week having memory issues, and DIL having MCKEON and possible fluid in brain and dog being sick. Pt reports significant weakness in BUEs and LEs. Limited overhead B UE ROM. cervical, thoracic and lumbar MRIs looked okay except degenerative changes. MRI of head WNL. Pt reports last wed was really weak and legs collapse and she crumpled around garbage can and she couldn't straighten back up and had to lift her up . She has tingling for about 3 weeks where it was waking her up at night. It felt like pulsating from upper back into fingertips and all the way to toes. That has lessened some. Feel like trunk is going to be frozen. Has been not exercising but is exhausted. Did try the bike slowly and not for long and can do it. Has not been getting good sleep at night. Trying to keep busy since feels like if she stops, she will get too weak. Sometimes between shoulder blades and in lumbar area is painful. Pt had GI issues in spring and winter including nausesa but it is gone. Still having instances of voice change. She saw provider at w/spray up nose and throat. She has to go to GI doctor and has an appt Jun 10 along w/ May 26 Neurologist appt. Has a couple tests set for mid May. Pt walks dog 2x/day still but only 3 blocks and slowly and uses cane. Pt typically I w/o AD. Cane use inside most of the time now. Treatment Goals Patient/Caregiver Goals improve strength; back to exercising PT-OP-C Subjective Start: 04/28/24 15:22 Freq: Status: Active Protocol: Document 04/28/24 15:22 [facility] (Rec: 04/28/24 17:18 [facility] [id number]) Patient Questionnaires Oswestry Low Back Index Oswestry Score 17/50 PT-OP-E Functional Tests Start: 04/28/24 15:22 Freq: Status: Active Protocol: Document 04/28/24 15:22 [facility] (Rec: 04/28/24 17:18 [facility] [id number]) Functional Tests Dynamic Gait Index (DGI) Score 14 PT-OP-F Manual Assessment Start: 04/28/24 15:22 Freq: Status: Active Protocol: Document 04/28/24 15:22 [facility] (Rec: 04/28/24 17:18 [facility] [id number]) Manual Assessments Other Manual Assessments Other Manual Assessments brachioradialis: R 0; L 1+; triceps 0 B; biceps 1+ B; knee ext & plantar flexion reflexes: L 1+; R 2+ PT-OP-G Mobility & Gait Start: 04/28/24 15:22 Freq: Status: Active Protocol: Document 04/28/24 15:22 [facility] (Rec: 04/28/24 17:18 [facility] [id number]) OP Mobility Evaluation Transfers Sit to Stand slow and must use UEs; dec control OP Gait Assessment Comments Gait Comments dec stance time B w/ lat leaning; slow gait and dec push off B-evidence for imbalance Stair Climbing Evaluation Comments Stair Climbing Comments use of rail w/recip step up/ down; significantly dec control down PT-OP-M Strength Start: 04/28/24 15:22 Freq: Status: Active Protocol: Document 04/28/24 15:22 [facility] (Rec: 04/28/24 17:18 [facility] [id number]) Shoulder Strength Shoulder Manual Muscle Testing Right Flexion 2- Poor- Extension 3 Fair Abduction (C5) 2- Poor- External Rotation 3 Fair Internal Rotation 3+ Fair+ Left Flexion 2- Poor- Extension 3 Fair Abduction (C5) 2- Poor- External Rotation 3 Fair Internal Rotation 3+ Fair+ Comments abd about 40 deg B; flex about 80 deg B; pain w/end range PROM and PROm limited to about 140 deg flex B Elbow/Forearm Strength Elbow and Forearm Manual Muscle Testing Right Flexion (C6) 3+ Fair+ Extension (C7) 3+ Fair+ Left Flexion (C6) 3+ Fair+ Extension (C7) 3+ Fair+ Hip Strength Hip Manual Muscle Testing Right Flexion (L2) 3 Fair External Rotation 3 Fair Internal Rotation 3 Fair Left Flexion (L2) 3- Fair- External Rotation 3 Fair Internal Rotation 3 Fair Knee Strength Knee Manual Muscle Testing Right Flexion (S2) 4- Good- Extension (L3) 3+ Fair+ Left Flexion (S2) 4- Good- Extension (L3) 3+ Fair+ Ankle/Foot Strength Ankle and Foot Manual Muscle Testing Right Dorsiflexion (L4) 3+ Fair+ Plantarflexion (S1) 3 Fair Left Dorsiflexion (L4) 3+ Fair+ Plantarflexion (S1) 3+ Fair+ Comments seated PF testing B PT-OP-Q Treatments Start: 04/28/24 15:22 Freq: Status: Active Protocol: Document 04/28/24 15:22 [facility] (Rec: 04/28/24 17:18 [facility] [id number]) Self-Care/Home Management Treatment Education Other Education 9 min: discussion that may require more testing including EMG and other neuro testing and to make sure on waitlist for neurologist as symptoms appear to be neuro in nature. edu to try small bouts of bike PT-OP-T Assessment and Plan Start: 04/28/24 15:22 Freq: Status: Active Protocol: Document 04/28/24 15:22 [facility] (Rec: 04/28/24 17:18 [facility] [id number]) Physical Therapy Assessment Rehab Potential Rehabilitation Potential Fair Evaluation Complexity Number of Personal Factors/Comorbidities 3 or More Number of Body Systems Impaired 4 or More Clinical Presentation at Evaluation Unstable Impairments Impairments Activity Tolerance,Balance, Functional Activities, Functional Mobility,Gait,Pain, Posture,ROM,Soft Tissue Mobility,Strength,Transfers Goals ROM Short Term Goal (STG) Pt will be able to do B shoulder flex to at least 100 deg actively STG Duration 05/31 Hospice Registered Nurse Goal (LTG) Pt will be able to do B shoulder flex to at least 140 deg actively w/o inc pain to allow greater ease w/overhead tasks. LTG Duration 07/21 activities Short Term Goal (STG) Pt will be able to tolerate biking 15 min a day w/o inc pain or significant fatigue for rest of day to show improved activity tolerance. STG Duration 05/31 Hospice Registered Nurse Goal (LTG) Pt will be able to resume walking daily about 1 mile w/o inc pain or feeling of unsteadiness or weakness LTG Duration 07/21 strength Short Term Goal (STG) Pt will be indep w/HEP STG Duration 05/31 Longterm Goal (LTG) Pt will score at least 4/5 on all UE and LE MMT B to show improved strength to allow greater ease of function LTG Duration 07/21 DGI Impairment 14/24 Short Term Goal (STG) Pt will improve DGI score to at least 17/24 to show improved balance and dec risk for falls. STG Duration 05/31 Longterm Goal (LTG) Pt will improve DGI score to at least 20/24 to show improved balance and low risk for falls. LTG Duration 07/21 Assessment Summary Assessment Pt presents w/progressive, but significant weakening of BUEs and LEs and trunk along w/BUE /LE tingling along w/back pain in lumbar and thoracic region w/dec trunk ROM and neck ROM especially in rotations. She shows risk for falls based on DGI testing today along w/ unsteadiness in gait. Pt has been seen multiple times by this PT over the years ( including this year for back/ foot pain) and this is a significant and fast decline in motor function. Pt would benefit from further testing and seeing neurologist and is scheduled May 26 as this is as soon as she can get in. Pt would benefit from skilled PT to work on strength and balance in order to improve ability to participate in ADLs . Physical Therapy Plan Frequency and Duration Frequency of Treatment 2x/Week Duration of treatment (weeks) 12 Plan of Care Start Date 04/28/24 Plan of Care End Date 07/21/24 Therapeutic Interventions Therapeutic Interventions Balance Training,Canalithic Repositioning,Coordination Training,Gait Training,Home Exercise Program,Joint Mobilizations,Manual Therapy, Neuromuscular Re-education, Patient/Caregiver Education, Self-Care/Home Management,Soft Tissue Mobilization,Taping, Therapeutic Activities, Therapeutic Exercises, Vestibular Rehabilitation Modalities Cold Pack/Ice Massage,Electric Stimulation,Hot Packs Next Visit Focus/Plan Next Note Type Treatment Note Next Visit Plan gradual progression of activity (careful not to do too much to over fatigue patient); whole body strengthening exercises (sit to stands w/UEs, try stepper low resistance, short duration , rows, seated hip strengthening) balance in clinic w/gait belt
--- NOTE | 2024-05-04 10:32 | PT.OTN ---
Current Diagnoses Other chronic pain (05/04/24) Spondylosis without myelopathy or radiculopathy, lumbar region (05/04/24) Other intervertebral disc degeneration, lumbar region (05/04/24) Cervicalgia (05/04/24) Low back pain, unspecified (05/04/24) Anesthesia of skin (05/04/24) Paresthesia of skin (05/04/24) Unsteadiness on feet (05/04/24) Other symptoms and signs involving the musculoskeletal system (05/04/24) Physical Therapy Treatment Note PT-OP-A Visit Information Start: 04/28/24 15:22 Freq: Status: Active Protocol: Document 05/04/24 09:52 [facility] (Rec: 05/04/24 10:38 [facility] [id number]) Out-Patient Physical Therapy Visit Information Visit Information Visit Type Treatment Note Visit Start Time 09:52 Visit Stop Time 10:32 Visit Number 2 Number of MORTGAGE FUNDER Visits 1 PT-OP-B Current Condition Start: 04/28/24 15:22 Freq: Status: Active Protocol: Document 04/28/24 15:22 [facility] (Rec: 04/28/24 17:18 [facility] [id number]) Current Condition History of Current Condition Onset Date about 2 months w/hx prior Current Complaints back pain, thoracic pain, body stiffness History of Current Condition Pt has had a lot of stress d/t past week having memory issues, and DIL having MCKEON and possible fluid in brain and dog being sick. Pt reports significant weakness in BUEs and LEs. Limited overhead B UE ROM. cervical, thoracic and lumbar MRIs looked okay except degenerative changes. MRI of head WNL. Pt reports last wed was really weak and legs collapse and she crumpled around garbage can and she couldn't straighten back up and had to lift her up . She has tingling for about 3 weeks where it was waking her up at night. It felt like pulsating from upper back into fingertips and all the way to toes. That has lessened some. Feel like trunk is going to be frozen. Has been not exercising but is exhausted. Did try the bike slowly and not for long and can do it. Has not been getting good sleep at night. Trying to keep busy since feels like if she stops, she will get too weak. Sometimes between shoulder blades and in lumbar area is painful. Pt had GI issues in spring and winter including nausesa but it is gone. Still having instances of voice change. She saw provider at w/spray up nose and throat. She has to go to GI doctor and has an appt Jun 10 along w/ May 26 Neurologist appt. Has a couple tests set for mid May. Pt walks dog 2x/day still but only 3 blocks and slowly and uses cane. Pt typically I w/o AD. Cane use inside most of the time now. Treatment Goals Patient/Caregiver Goals improve strength; back to exercising PT-OP-C Subjective Start: 04/28/24 15:22 Freq: Status: Active Protocol: Document 05/04/24 09:52 [facility] (Rec: 05/04/24 10:38 [facility] [id number]) OP-PT Subjective Patient Comments Patient Comments Pt reports awaiting Neurologist urgent appt beginning May 26. PT-OP-E Functional Tests Start: 04/28/24 15:22 Freq: Status: Active Protocol: Document 04/28/24 15:22 [facility] (Rec: 04/28/24 17:18 [facility] [id number]) Functional Tests Dynamic Gait Index (DGI) Score PT-OP-F Manual Assessment Start: 04/28/24 15:22 Freq: Status: Active Protocol: Document 04/28/24 15:22 [facility] (Rec: 04/28/24 17:18 [facility] [id number]) Manual Assessments Other Manual Assessments Other Manual Assessments brachioradialis: R 0; L 1+; triceps 0 B; biceps 1+ B; knee ext & plantar flexion reflexes: L 1+; R 2+ PT-OP-G Mobility & Gait Start: 04/28/24 15:22 Freq: Status: Active Protocol: Document 04/28/24 15:22 [facility] (Rec: 04/28/24 17:18 [facility] [id number]) OP Mobility Evaluation Transfers Sit to Stand slow and must use UEs; dec control OP Gait Assessment Comments Gait Comments dec stance time B w/ lat leaning; slow gait and dec push off B-evidence for imbalance Stair Climbing Evaluation Comments Stair Climbing Comments use of rail w/recip step up/ down; significantly dec control down PT-OP-M Strength Start: 04/28/24 15:22 Freq: Status: Active Protocol: Document 04/28/24 15:22 [facility] (Rec: 04/28/24 17:18 [facility] [id number]) Shoulder Strength Shoulder Manual Muscle Testing Right Flexion 2- Poor- Extension 3 Fair Abduction (C5) 2- Poor- External Rotation 3 Fair Internal Rotation 3+ Fair+ Left Flexion 2- Poor- Extension 3 Fair Abduction (C5) 2- Poor- External Rotation 3 Fair Internal Rotation 3+ Fair+ Comments abd about 40 deg B; flex about 80 deg B; pain w/end range PROM and PROm limited to about 140 deg flex B Elbow/Forearm Strength Elbow and Forearm Manual Muscle Testing Right Flexion (C6) 3+ Fair+ Extension (C7) 3+ Fair+ Left Flexion (C6) 3+ Fair+ Extension (C7) 3+ Fair+ Hip Strength Hip Manual Muscle Testing Right Flexion (L2) 3 Fair External Rotation 3 Fair Internal Rotation 3 Fair Left Flexion (L2) 3- Fair- External Rotation 3 Fair Internal Rotation 3 Fair Knee Strength Knee Manual Muscle Testing Right Flexion (S2) 4- Good- Extension (L3) 3+ Fair+ Left Flexion (S2) 4- Good- Extension (L3) 3+ Fair+ Ankle/Foot Strength Ankle and Foot Manual Muscle Testing Right Dorsiflexion (L4) 3+ Fair+ Plantarflexion (S1) 3 Fair Left Dorsiflexion (L4) 3+ Fair+ Plantarflexion (S1) 3+ Fair+ Comments seated PF testing B PT-OP-Q Treatments Start: 04/28/24 15:22 Freq: Status: Active Protocol: Document 05/04/24 09:52 [facility] (Rec: 05/04/24 10:38 [facility] [id number]) Therapeutic Exercises Sitting Exercises Sit<>stand Sitting Exercise Name added to HEP /c HO Resistance arm front stand, 1 light UE sit. Equipment Used mesh 18 chair Reps/Minutes 2x5 reps Comments cued hip hinge asc/desc- flops little last 1- instructed light touch 1 charla LAQ Sitting Exercise Name added to HEP (assist stance time safety walking)- /c HO Side bilateral Resistance AROM isometric quad Reps/Minutes 5 SH x10 Comments Improved contraction and range with reps- R weaker than L clamshell Sitting Exercise Name trialed & added to HEP /c HO Side bilateral Resistance Tb #1 at thighs Reps/Minutes 5 SH x8 Comments good tiring effort resisted scap retraction & ER Sitting Exercise Name trailed and added to HEP /c HO Side bilateral Resistance TB #1 Reps/Minutes 2 Sh x5, 2 sets Comments cued posture front seat, gentle ER resistance Neuro Re-Education Treatment Balance Activities corner balance Details semi tandem, tandem Equipment corner wall at back, chair front Reps/Duration 2 Comments 1. stationary stance 2. head turns- able semi tandem, little challenge tandem cues forWB even BLes PT-OP-T Assessment and Plan Start: 04/28/24 15:22 Freq: Status: Active Protocol: Document 05/04/24 09:52 [facility] (Rec: 05/04/24 10:38 [facility] [id number]) Physical Therapy Assessment Goals ROM Short Term Goal (STG) Pt will be able to do B shoulder flex to at least 100 deg actively STG Duration 05/31 Sort Line Worker Goal (LTG) Pt will be able to do B shoulder flex to at least 140 deg actively w/o inc pain to allow greater ease w/overhead tasks. LTG Duration 07/21 activities Short Term Goal (STG) Pt will be able to tolerate biking 15 min a day w/o inc pain or significant fatigue for rest of day to show improved activity tolerance. STG Duration 05/31 Sort Line Worker Goal (LTG) Pt will be able to resume walking daily about 1 mile w/o inc pain or feeling of unsteadiness or weakness LTG Duration 07/21 strength Short Term Goal (STG) Pt will be indep w/HEP STG Duration 05/31 Residential Goal (LTG) Pt will score at least 4/5 on all UE and LE MMT B to show improved strength to allow greater ease of function LTG Duration 07/21 DGI Impairment 14/ Short Term Goal (STG) Pt will improve DGI score to at least 17/24 to show improved balance and dec risk for falls. STG Duration 05/31 Sort Line Worker Goal (LTG) Pt will improve DGI score to at least 20/24 to show improved balance and low risk for falls. LTG Duration 07/21 Assessment Summary Assessment Pt report good slight tiring effort with all ther ex added for HEP today. Good feedback sitting HEP for days that not endurance standing activities can still progress home. Good feedback and response corner balance, found tandem stationar and able progress slight HTs for carryover home. Physical Therapy Plan Frequency and Duration Frequency of Treatment 2x/Week Duration of treatment (weeks) 12 Plan of Care Start Date 04/28/24 Plan of Care End Date 07/21/24 Therapeutic Interventions Therapeutic Interventions Balance Training,Canalithic Repositioning,Coordination Training,Gait Training,Home Exercise Program,Joint Mobilizations,Manual Therapy, Neuromuscular Re-education, Patient/Caregiver Education, Self-Care/Home Management,Soft Tissue Mobilization,Taping, Therapeutic Activities, Therapeutic Exercises, Vestibular Rehabilitation Modalities Cold Pack/Ice Massage,Electric Stimulation,Hot Packs Next Visit Focus/Plan Next Note Type Treatment Note Next Visit Plan gradual progression of activity (careful not to do too much to over fatigue patient); whole body strengthening exercises (sit to stands w/UEs, try stepper low resistance, short duration , rows, seated hip strengthening) balance in clinic w/gait belt
--- NOTE | 2024-05-07 09:00 | PT.OTN ---
Current Diagnoses Other chronic pain (05/07/24) Spondylosis without myelopathy or radiculopathy, lumbar region (05/07/24) Other intervertebral disc degeneration, lumbar region (05/07/24) Cervicalgia (05/07/24) Low back pain, unspecified (05/07/24) Anesthesia of skin (05/07/24) Paresthesia of skin (05/07/24) Unsteadiness on feet (05/07/24) Other symptoms and signs involving the musculoskeletal system (05/07/24) Physical Therapy Treatment Note PT-OP-A Visit Information Start: 04/28/24 15:22 Freq: Status: Active Protocol: Document 05/07/24 08:19 SP (Rec: 05/07/24 09:03 SP [id number]) Out-Patient Physical Therapy Visit Information Visit Information Visit Type Treatment Note Visit Start Time 08:19 Visit Stop Time 09:00 Visit Number 3 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 (Rec: 04/28/24 17:18 [facility] [id number]) Current Condition History of Current Condition Onset Date about 2 months w/hx prior Current Complaints back pain, thoracic pain, body stiffness History of Current Condition Pt has had a lot of stress d/t past week having memory issues, and DIL having MCKEON and possible fluid in brain and dog being sick. Pt reports significant weakness in BUEs and LEs. Limited overhead B UE ROM. cervical, thoracic and lumbar MRIs looked okay except degenerative changes. MRI of head WNL. Pt reports last wed was really weak and legs collapse and she crumpled around garbage can and she couldn't straighten back up and had to lift her up . She has tingling for about 3 weeks where it was waking her up at night. It felt like pulsating from upper back into fingertips and all the way to toes. That has lessened some. Feel like trunk is going to be frozen. Has been not exercising but is exhausted. Did try the bike slowly and not for long and can do it. Has not been getting good sleep at night. Trying to keep busy since feels like if she stops, she will get too weak. Sometimes between shoulder blades and in lumbar area is painful. Pt had GI issues in spring and winter including nausesa but it is gone. Still having instances of voice change. She saw provider at w/spray up nose and throat. She has to go to GI doctor and has an appt Jun 10 along w/ May 26 Neurologist appt. Has a couple tests set for mid May. Pt walks dog 2x/day still but only 3 blocks and slowly and uses cane. Pt typically I w/o AD. Cane use inside most of the time now. Treatment Goals Patient/Caregiver Goals improve strength; back to exercising PT-OP-C Subjective Start: 04/28/24 15:22 Freq: Status: Active Protocol: Document 05/07/24 08:19 SP (Rec: 05/07/24 09: SP [id number]) OP-PT Subjective Patient Comments Patient Comments Pt has neurologist appt 05/26. She stated her back was hurting after STS last tx. She reports wants to review the corner balance today for better carryover set up and performance with image hands outs for home with better description. PT-OP-E Functional Tests Start: 04/28/24 15:22 Freq: Status: Active Protocol: Document 04/28/24 15:22 [facility] (Rec: 04/28/24 17:18 [facility] [id number]) Functional Tests Dynamic Gait Index (DGI) Score PT-OP-F Manual Assessment Start: 04/28/24 15:22 Freq: Status: Active Protocol: Document 04/28/24 15:22 [facility] (Rec: 04/28/24 17:18 [facility] [id number]) Manual Assessments Other Manual Assessments Other Manual Assessments brachioradialis: R 0; L 1+; triceps 0 B; biceps 1+ B; knee ext & plantar flexion reflexes: L 1+; R 2+ PT-OP-G Mobility & Gait Start: 04/28/24 15:22 Freq: Status: Active Protocol: Document 04/28/24 15:22 [facility] (Rec: 04/28/24 17:18 [facility] [id number]) OP Mobility Evaluation Transfers Sit to Stand slow and must use UEs; dec control OP Gait Assessment Comments Gait Comments dec stance time B w/ lat leaning; slow gait and dec push off B-evidence for imbalance Stair Climbing Evaluation Comments Stair Climbing Comments use of rail w/recip step up/ down; significantly dec control down PT-OP-M Strength Start: 04/28/24 15:22 Freq: Status: Active Protocol: Document 04/28/24 15:22 [facility] (Rec: 04/28/24 17:18 [facility] [id number]) Shoulder Strength Shoulder Manual Muscle Testing Right Flexion 2- Poor- Extension 3 Fair Abduction (C5) 2- Poor- External Rotation 3 Fair Internal Rotation 3+ Fair+ Left Flexion 2- Poor- Extension 3 Fair Abduction (C5) 2- Poor- External Rotation 3 Fair Internal Rotation 3+ Fair+ Comments abd about 40 deg B; flex about 80 deg B; pain w/end range PROM and PROm limited to about 140 deg flex B Elbow/Forearm Strength Elbow and Forearm Manual Muscle Testing Right Flexion (C6) 3+ Fair+ Extension (C7) 3+ Fair+ Left Flexion (C6) 3+ Fair+ Extension (C7) 3+ Fair+ Hip Strength Hip Manual Muscle Testing Right Flexion (L2) 3 Fair External Rotation 3 Fair Internal Rotation 3 Fair Left Flexion (L2) 3- Fair- External Rotation 3 Fair Internal Rotation 3 Fair Knee Strength Knee Manual Muscle Testing Right Flexion (S2) 4- Good- Extension (L3) 3+ Fair+ Left Flexion (S2) 4- Good- Extension (L3) 3+ Fair+ Ankle/Foot Strength Ankle and Foot Manual Muscle Testing Right Dorsiflexion (L4) 3+ Fair+ Plantarflexion (S1) 3 Fair Left Dorsiflexion (L4) 3+ Fair+ Plantarflexion (S1) 3+ Fair+ Comments seated PF testing B PT-OP-Q Treatments Start: 04/28/24 15:22 Freq: Status: Active Protocol: Document 05/07/24 08:19 SP (Rec: 05/07/24 09:03 SP [id number]) Therapeutic Exercises Sitting Exercises TA draw in Sitting Exercise Name added to HEP for prep standing Equipment Used 1 UE> no UE Reps/Minutes 5 SH x5 Comments education belly draw in like zipping up pants- maintain sit<>stand LAQ Sitting Exercise Name added to HEP (assist stance time safety walking)- /c HO Side bilateral Resistance AROM isometric quad Reps/Minutes 5 SH x10 Comments Improved contraction and range with reps- R weaker than L clamshell Sitting Exercise Name trialed & added to HEP /c HO Side bilateral Resistance Tb #1 at thighs Reps/Minutes 5 SH x8 Comments good tiring effort Therapeutic Activity Therapeutic Activity TA STS Name mesh chair Reps/Minutes 5 reps total Comments ed scoot fwd front chair, feet back with tolerance knee ROM, instructed TA draw in with straight back hip hinge/wt shift fwd over SUJATHA and glut drive to full standing then hip hinge and knee flexion slow descend with improved response, less tension on her back. Neuro Re-Education Treatment Balance Activities SLS Equipment corner balance Comments LLE 30 sec RLE 30 sec opp foot touch stance LE corner balance Details tandem Equipment corner wall at back, chair front Reps/Duration 2 Comments 1. stationary stance 30sec each 2. head turns- tandem cues for wt shift WB even BLes PT-OP-T Assessment and Plan Start: 04/28/24 15:22 Freq: Status: Active Protocol: Document 05/07/24 08:19 SP (Rec: 05/07/24 09:03 SP [id number]) Physical Therapy Assessment Goals ROM Short Term Goal (STG) Pt will be able to do B shoulder flex to at least 100 deg actively STG Duration 05/31 [facility] Goal (LTG) Pt will be able to do B shoulder flex to at least 140 deg actively w/o inc pain to allow greater ease w/overhead tasks. LTG Duration 07/21 activities Short Term Goal (STG) Pt will be able to tolerate biking 15 min a day w/o inc pain or significant fatigue for rest of day to show improved activity tolerance. 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 STG Duration 05/31 [facility] Goal (LTG) Pt will improve DGI score to at least 20/24 to show improved balance and low risk for falls. LTG Duration 07/21 Assessment Summary Assessment Pt improved TA engagement draw in post education which demonstrated more controlled descend sit in chair. Initiated LE strengthening hip abd and quad isometric against gravity and TB seated for support in standing tolerance. Pt improved corner balance tandem and SLS able to hold 30 sec, noted little sways but no LOB during added head turns with cues for elongated posture, wt shift COG over even BLE SUJATHA more fwd , demonstrated more confidence . Pt does need time between activies for rest recovery. Physical Therapy Plan Frequency and Duration Frequency of Treatment 2x/Week Duration of treatment (weeks) 12 Plan of Care Start Date 04/28/24 Plan of Care End Date 07/21/24 Therapeutic Interventions Therapeutic Interventions Balance Training,Canalithic Repositioning,Coordination Training,Gait Training,Home Exercise Program,Joint Mobilizations,Manual Therapy, Neuromuscular Re-education, Patient/Caregiver Education, Self-Care/Home Management,Soft Tissue Mobilization,Taping, Therapeutic Activities, Therapeutic Exercises, Vestibular Rehabilitation Modalities Cold Pack/Ice Massage,Electric Stimulation,Hot Packs Next Visit Focus/Plan Next Note Type Treatment Note Next Visit Plan Recheck HEP: seated LE and corner balance, progress EC in PT. Next add standing rows. POC: gradual progression of activity (careful not to do too much to over fatigue patient); whole body strengthening exercises (sit to stands w/UEs, try stepper low resistance, short duration , seated hip strengthening) balance in clinic w/gait belt
--- NOTE | 2024-05-07 16:19 | PT-OP ANOTE ---
Pt primary Dr. 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
--- NOTE | 2024-05-12 09:58 | PT.OTN ---
Current Diagnoses Other chronic pain (05/12/24) Spondylosis without myelopathy or radiculopathy, lumbar region (05/12/24) Other intervertebral disc degeneration, lumbar region (05/12/24) Cervicalgia (05/12/24) Low back pain, unspecified (05/12/24) Anesthesia of skin (05/12/24) Paresthesia of skin (05/12/24) Unsteadiness on feet (05/12/24) Other symptoms and signs involving the musculoskeletal system (05/12/24) Physical Therapy Treatment Note PT-OP-A Visit Information Start: 04/28/24 15:22 Freq: Status: Active Protocol: Document 05/12/24 08:43 [facility] (Rec: 05/12/24 09:58 [facility] [id number]) Out-Patient Physical Therapy Visit Information Visit Information Visit Type Treatment Note Visit Start Time 09:05 Visit Stop Time 09:50 Visit Number 4 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 Pt reports significant weakness in BUEs and LEs. Limited overhead B UE ROM. cervical, thoracic and lumbar MRIs looked okay except degenerative changes. MRI of head WNL. Pt reports last wed was really weak and legs collapse and she crumpled around garbage can and she couldn't straighten back up and had to lift her up . She has tingling for about 3 weeks where it was waking her up at night. It felt like pulsating from upper back into fingertips and all the way to toes. That has lessened some. Feel like trunk is going to be frozen. Has been not exercising but is exhausted. Did try the bike slowly and not for long and can do it. Has not been getting good sleep at night. Trying to keep busy since feels like if she stops, she will get too weak. Sometimes between shoulder blades and in lumbar area is painful. Pt had GI issues in spring and winter including nausesa but it is gone. Still having instances of voice change. She saw provider at w/spray up nose and throat. She has to go to GI doctor and has an appt Jun 10 along w/ May 26 Neurologist appt. Has a couple tests set for mid May. Pt walks dog 2x/day still but only 3 blocks and slowly and uses cane. Pt typically I w/o AD. Cane use inside most of the time now. Treatment Goals Patient/Caregiver Goals improve strength; back to exercising PT-OP-C Subjective Start: 04/28/24 15:22 Freq: Status: Active Protocol: Document 05/12/24 08:43 [facility] (Rec: 05/12/24 09:58 [facility] [id number]) OP-PT Subjective Patient Comments Patient Comments pt reports no change PT-OP-E Functional Tests Start: 04/28/24 15:22 Freq: Status: Active Protocol: Document 04/28/24 15:22 [facility] (Rec: 04/28/24 17:18 [facility] [id number]) Functional Tests Dynamic Gait Index (DGI) Score PT-OP-F Manual Assessment Start: 04/28/24 15:22 Freq: Status: Active Protocol: Document 04/28/24 15:22 [facility] (Rec: 04/28/24 17:18 [facility] [id number]) Manual Assessments Other Manual Assessments Other Manual Assessments brachioradialis: R 0; L 1+; triceps 0 B; biceps 1+ B; knee ext & plantar flexion reflexes: L 1+; R 2+ PT-OP-G Mobility & Gait Start: 04/28/24 15:22 Freq: Status: Active Protocol: Document 04/28/24 15:22 [facility] (Rec: 04/28/24 17:18 [facility] [id number]) OP Mobility Evaluation Transfers Sit to Stand slow and must use UEs; dec control OP Gait Assessment Comments Gait Comments dec stance time B w/ lat leaning; slow gait and dec push off B-evidence for imbalance Stair Climbing Evaluation Comments Stair Climbing Comments use of rail w/recip step up/ down; significantly dec control down PT-OP-M Strength Start: 04/28/24 15:22 Freq: Status: Active Protocol: Document 04/28/24 15:22 [facility] (Rec: 04/28/24 17:18 [facility] [id number]) Shoulder Strength Shoulder Manual Muscle Testing Right Flexion 2- Poor- Extension 3 Fair Abduction (C5) 2- Poor- External Rotation 3 Fair Internal Rotation 3+ Fair+ Left Flexion 2- Poor- Extension 3 Fair Abduction (C5) 2- Poor- External Rotation 3 Fair Internal Rotation 3+ Fair+ Comments abd about 40 deg B; flex about 80 deg B; pain w/end range PROM and PROm limited to about 140 deg flex B Elbow/Forearm Strength Elbow and Forearm Manual Muscle Testing Right Flexion (C6) 3+ Fair+ Extension (C7) 3+ Fair+ Left Flexion (C6) 3+ Fair+ Extension (C7) 3+ Fair+ Hip Strength Hip Manual Muscle Testing Right Flexion (L2) 3 Fair External Rotation 3 Fair Internal Rotation 3 Fair Left Flexion (L2) 3- Fair- External Rotation 3 Fair Internal Rotation 3 Fair Knee Strength Knee Manual Muscle Testing Right Flexion (S2) 4- Good- Extension (L3) 3+ Fair+ Left Flexion (S2) 4- Good- Extension (L3) 3+ Fair+ Ankle/Foot Strength Ankle and Foot Manual Muscle Testing Right Dorsiflexion (L4) 3+ Fair+ Plantarflexion (S1) 3 Fair Left Dorsiflexion (L4) 3+ Fair+ Plantarflexion (S1) 3+ Fair+ Comments seated PF testing B PT-OP-Q Treatments Start: 04/28/24 15:22 Freq: Status: Active Protocol: Document 05/12/24 08:43 [facility] (Rec: 05/12/24 09:58 [facility] [id number]) Therapeutic Exercises Sitting Exercises march Sitting Exercise Name w/core Side bilateral Reps/Minutes 20 LAQ Sitting Exercise Name progress HEP Side bilateral Resistance L1 Reps/Minutes 15 Comments Improved contraction and range with reps- R weaker than L resisted scap retraction & ER Sitting Exercise Name review HEP Side bilateral Resistance TB #1 Reps/Minutes 15 Comments cues gentle scap retraction Neuro Re-Education Treatment Balance Activities hurdles Equipment 6 hurdles w/rail prn Comments 1. fwd recipriocal x8 2. lat step overa x2 B foam Surface blue foam Comments 1. WBOS w/EC & head turns 2. NBOS WBOS w/EC & head turns 3. staggered stance B w/EC & head turns 4. step up on 4in step w/blue foam on x12 B tilt board Comments 1. fwd/back tilts EO & balance EC 2. lat tilts EO & balance EC PT-OP-T Assessment and Plan Start: 04/28/24 15:22 Freq: Status: Active Protocol: Document 05/12/24 08:43 [facility] (Rec: 05/12/24 09:58 [facility] [id number]) Physical Therapy Assessment Goals ROM Short Term Goal (STG) Pt will be able to do B shoulder flex to at least 100 deg actively STG Duration 05/31 Nursing Home Goal (LTG) Pt will be able to do B shoulder flex to at least 140 deg actively w/o inc pain to allow greater ease w/overhead tasks. LTG Duration 07/21 activities Short Term Goal (STG) Pt will be able to tolerate biking 15 min a day w/o inc pain or significant fatigue for rest of day to show improved activity tolerance. STG Duration 05/31 Nursing Home Goal (LTG) Pt will be able to resume walking daily about 1 mile w/o inc pain or feeling of unsteadiness or weakness LTG Duration 07/21 strength Short Term Goal (STG) Pt will be indep w/HEP STG Duration 05/31 Nursing Home Goal (LTG) Pt will score at least 4/5 on all UE and LE MMT B to show improved strength to allow greater ease of function LTG Duration 07/21 DGI Impairment 14/24 Short Term Goal (STG) Pt will improve DGI score to at least 17/24 to show improved balance and dec risk for falls. STG Duration 05/31 Nursing Home Goal (LTG) Pt will improve DGI score to at least 20/24 to show improved balance and low risk for falls. LTG Duration 07/21 Assessment Summary Assessment Pt had improved balance today but was challenged by activities today especially w/ EC and w/hurdles. No reports of excessive fatigue. Cues needed w/ER for no back ext. Encouraged pt to try 5 min on staionary bike a day if can tolerate w/o excessive fatigue Physical Therapy Plan Frequency and Duration Frequency of Treatment 2x/Week Duration of treatment (weeks) 12 Plan of Care Start Date 04/28/24 Plan of Care End Date 07/21/24 Next Visit Focus/Plan Next Note Type Treatment Note Next Visit Plan Next add standing rows. POC: gradual progression of activity (careful not to do too much to over fatigue patient); whole body strengthening exercises (sit to stands w/UEs, try stepper low resistance, short duration , seated hip strengthening) balance in clinic w/gait belt
--- NOTE | 2024-05-15 12:53 | PT.OTN ---
Current Diagnoses Other chronic pain (05/15/24) Spondylosis without myelopathy or radiculopathy, lumbar region (05/15/24) Other intervertebral disc degeneration, lumbar region (05/15/24) Cervicalgia (05/15/24) Low back pain, unspecified (05/15/24) Anesthesia of skin (05/15/24) Paresthesia of skin (05/15/24) Unsteadiness on feet (05/15/24) Other symptoms and signs involving the musculoskeletal system (05/15/24) Physical Therapy Treatment Note PT-OP-A Visit Information Start: 04/28/24 15:22 Freq: Status: Active Protocol: Document 05/15/24 08:11 AB (Rec: 05/15/24 09:47 AB [id number]) Out-Patient Physical Therapy Visit Information Visit Information Visit Type Treatment Note Visit Note Access Code: [email or web address] Visit Start Time 09:04 Visit Stop Time 09:47 Visit Number 5 Number of BAFFLE INSTALLER Visits 1 PT-OP-B Current Condition Start: 04/28/24 15:22 Freq: Status: Active Protocol: Document 04/28/24 15:22 [facility] (Rec: 04/28/24 17:18 [facility] [id number]) Current Condition History of Current Condition Onset Date about 2 months w/hx prior Current Complaints back pain, thoracic pain, body stiffness History of Current Condition Pt has had a lot of stress d/t past week having memory issues, and DIL having MCKEON and possible fluid in brain and dog being sick. Pt reports significant weakness in BUEs and LEs. Limited overhead B UE ROM. cervical, thoracic and lumbar MRIs looked okay except degenerative changes. MRI of head WNL. Pt reports last wed was really weak and legs collapse and she crumpled around garbage can and she couldn't straighten back up and had to lift her up . She has tingling for about 3 weeks where it was waking her up at night. It felt like pulsating from upper back into fingertips and all the way to toes. That has lessened some. Feel like trunk is going to be frozen. Has been not exercising but is exhausted. Did try the bike slowly and not for long and can do it. Has not been getting good sleep at night. Trying to keep busy since feels like if she stops, she will get too weak. Sometimes between shoulder blades and in lumbar area is painful. Pt had GI issues in spring and winter including nausesa but it is gone. Still having instances of voice change. She saw provider at w/spray up nose and throat. She has to go to GI doctor and has an appt Jun 10 along w/ May 26 Neurologist appt. Has a couple tests set for mid May. Pt walks dog 2x/day still but only 3 blocks and slowly and uses cane. Pt typically I w/o AD. Cane use inside most of the time now. Treatment Goals Patient/Caregiver Goals improve strength; back to exercising PT-OP-C Subjective Start: 04/28/24 15:22 Freq: Status: Active Protocol: Document 05/15/24 08:11 AB (Rec: 05/15/24 09:47 AB [id number]) OP-PT Subjective Patient Comments Patient Comments Patient reports she is the same, and is having more back pain. PT-OP-E Functional Tests Start: 04/28/24 15:22 Freq: Status: Active Protocol: Document 04/28/24 15:22 [facility] (Rec: 04/28/24 17:18 [facility] [id number]) Functional Tests Dynamic Gait Index (DGI) Score PT-OP-F Manual Assessment Start: 04/28/24 15:22 Freq: Status: Active Protocol: Document 04/28/24 15:22 [facility] (Rec: 04/28/24 17:18 [facility] [id number]) Manual Assessments Other Manual Assessments Other Manual Assessments brachioradialis: R 0; L 1+; triceps 0 B; biceps 1+ B; knee ext & plantar flexion reflexes: L 1+; R 2+ PT-OP-G Mobility & Gait Start: 04/28/24 15:22 Freq: Status: Active Protocol: Document 04/28/24 15:22 [facility] (Rec: 04/28/24 17:18 [facility] [id number]) OP Mobility Evaluation Transfers Sit to Stand slow and must use UEs; dec control OP Gait Assessment Comments Gait Comments dec stance time B w/ lat leaning; slow gait and dec push off B-evidence for imbalance Stair Climbing Evaluation Comments Stair Climbing Comments use of rail w/recip step up/ down; significantly dec control down PT-OP-M Strength Start: 04/28/24 15:22 Freq: Status: Active Protocol: Document 04/28/24 15:22 [facility] (Rec: 04/28/24 17:18 [facility] [id number]) Shoulder Strength Shoulder Manual Muscle Testing Right Flexion 2- Poor- Extension 3 Fair Abduction (C5) 2- Poor- External Rotation 3 Fair Internal Rotation 3+ Fair+ Left Flexion 2- Poor- Extension 3 Fair Abduction (C5) 2- Poor- External Rotation 3 Fair Internal Rotation 3+ Fair+ Comments abd about 40 deg B; flex about 80 deg B; pain w/end range PROM and PROm limited to about 140 deg flex B Elbow/Forearm Strength Elbow and Forearm Manual Muscle Testing Right Flexion (C6) 3+ Fair+ Extension (C7) 3+ Fair+ Left Flexion (C6) 3+ Fair+ Extension (C7) 3+ Fair+ Hip Strength Hip Manual Muscle Testing Right Flexion (L2) 3 Fair External Rotation 3 Fair Internal Rotation 3 Fair Left Flexion (L2) 3- Fair- External Rotation 3 Fair Internal Rotation 3 Fair Knee Strength Knee Manual Muscle Testing Right Flexion (S2) 4- Good- Extension (L3) 3+ Fair+ Left Flexion (S2) 4- Good- Extension (L3) 3+ Fair+ Ankle/Foot Strength Ankle and Foot Manual Muscle Testing Right Dorsiflexion (L4) 3+ Fair+ Plantarflexion (S1) 3 Fair Left Dorsiflexion (L4) 3+ Fair+ Plantarflexion (S1) 3+ Fair+ Comments seated PF testing B PT-OP-Q Treatments Start: 04/28/24 15:22 Freq: Status: Active Protocol: Document 05/15/24 08:11 AB (Rec: 05/15/24 09:47 AB [id number]) Cardio Equipment Recumbent Elliptical (Biodex) Duration (Minutes) 6 Resistance 1 Seat Position 0 Therapeutic Exercises Supine Exercises modified restorative pose with breathing from diaphragm Supine Exercise Name HEP Reps/Minutes 4-5 minutes Comments verbal cues for breathing for diaphragm Sitting Exercises side sit to upright Sitting Exercise Name HEP Side bilateral Reps/Minutes X8 Comments Verbal, visual and tactile cues Sit<>stand Reps/Minutes X3 X 2 clamshell Sitting Exercise Name (trialed & added to HEP /c HO) 05/15 one min hold and X 5 without hold Side bilateral Resistance Tb #2 at thighs Reps/Minutes X5 without hold and one one min hold resisted scap retraction & ER Sitting Exercise Name review HEP Performed standing single arm today Side bilateral Resistance TB #1 Reps/Minutes 10 Comments cues gentle scap retraction Standing Exercises L stretch Reps/Minutes X2 Comments Patient reports feeling it in back not shoulders PT-OP-T Assessment and Plan Start: 04/28/24 15:22 Freq: Status: Active Protocol: Document 05/15/24 08:11 AB (Rec: 05/15/24 09:47 AB [id number]) Physical Therapy Assessment Goals ROM Short Term Goal (STG) Pt will be able to do B shoulder flex to at least 100 deg actively STG Duration 05/31 Through Freight Engineer Goal (LTG) Pt will be able to do B shoulder flex to at least 140 deg actively w/o inc pain to allow greater ease w/overhead tasks. LTG Duration 07/21 activities Short Term Goal (STG) Pt will be able to tolerate biking 15 min a day w/o inc pain or significant fatigue for rest of day to show improved activity tolerance. STG Duration 05/31 Mcfp Goal (LTG) Pt will be able to resume walking daily about 1 mile w/o inc pain or feeling of unsteadiness or weakness LTG Duration 07/21 strength Short Term Goal (STG) Pt will be indep w/HEP STG Duration 05/31 Through Freight Engineer Goal (LTG) Pt will score at least 4/5 on all UE and LE MMT B to show improved strength to allow greater ease of function LTG Duration 07/21 DGI Impairment 14/24 Short Term Goal (STG) Pt will improve DGI score to at least 17/24 to show improved balance and dec risk for falls. STG Duration 05/31 Mcfp Goal (LTG) Pt will improve DGI score to at least 20/24 to show improved balance and low risk for falls. LTG Duration 07/21 Assessment Summary Assessment 1 Physical Therapy Plan Frequency and Duration Frequency of Treatment 2x/Week Duration of treatment (weeks) 12 Plan of Care Start Date 04/28/24 Plan of Care End Date 07/21/24 Next Visit Focus/Plan Next Visit Plan Patient able to perform sit to stand with adequate hip hinge and was observed practicing independently end of session as this therapist was stepping back from copier with HEP forms.
--- NOTE | 2024-05-19 12:00 | PT.OTN ---
Current Diagnoses Other chronic pain (05/19/24) Spondylosis without myelopathy or radiculopathy, lumbar region (05/19/24) Other intervertebral disc degeneration, lumbar region (05/19/24) Cervicalgia (05/19/24) Low back pain, unspecified (05/19/24) Anesthesia of skin (05/19/24) Paresthesia of skin (05/19/24) Unsteadiness on feet (05/19/24) Other symptoms and signs involving the musculoskeletal system (05/19/24) Physical Therapy Treatment Note PT-OP-A Visit Information Start: 04/28/24 15:22 Freq: Status: Active Protocol: Document 05/19/24 08:08 AB (Rec: 05/19/24 10:17 AB [id number]) Out-Patient Physical Therapy Visit Information Visit Information Visit Type Treatment Note Visit Note Access Code: [email or web address] Visit Start Time 08:17 Visit Stop Time 09:00 Visit Number 6 Number of FINANCE CONSULTANT Visits 1 PT-OP-B Current Condition Start: 04/28/24 15:22 Freq: Status: Active Protocol: Document 04/28/24 15:22 [facility] (Rec: 04/28/24 17:18 [facility] [id number]) Current Condition History of Current Condition Onset Date about 2 months w/hx prior Current Complaints back pain, thoracic pain, body stiffness History of Current Condition Pt has had a lot of stress d/t past week having memory issues, and DIL having MCKEON and possible fluid in brain and dog being sick. Pt reports significant weakness in BUEs and LEs. Limited overhead B UE ROM. cervical, thoracic and lumbar MRIs looked okay except degenerative changes. MRI of head WNL. Pt reports last wed was really weak and legs collapse and she crumpled around garbage can and she couldn't straighten back up and had to lift her up . She has tingling for about 3 weeks where it was waking her up at night. It felt like pulsating from upper back into fingertips and all the way to toes. That has lessened some. Feel like trunk is going to be frozen. Has been not exercising but is exhausted. Did try the bike slowly and not for long and can do it. Has not been getting good sleep at night. Trying to keep busy since feels like if she stops, she will get too weak. Sometimes between shoulder blades and in lumbar area is painful. Pt had GI issues in spring and winter including nausesa but it is gone. Still having instances of voice change. She saw provider at w/spray up nose and throat. She has to go to GI doctor and has an appt Jun 10 along w/ May 26 Neurologist appt. Has a couple tests set for mid May. Pt walks dog 2x/day still but only 3 blocks and slowly and uses cane. Pt typically I w/o AD. Cane use inside most of the time now. Treatment Goals Patient/Caregiver Goals improve strength; back to exercising PT-OP-C Subjective Start: 04/28/24 15:22 Freq: Status: Active Protocol: Document 05/19/24 08:08 AB (Rec: 05/19/24 10:17 AB [id number]) OP-PT Subjective Patient Comments Patient Comments Patient reports she is the same. Patient comments neuro appointment has been moved up to tomorrow. Patient reports the balancing is difficult, and is doing the exercises at home. Patient reports she forgot to use the band for the long arc quad exercise. SLS 15+ seconds left and right LE with head turns post 15 seconds LOB right LE within 2 seconds. PT-OP-E Functional Tests Start: 04/28/24 15:22 Freq: Status: Active Protocol: Document 04/28/24 15:22 [facility] (Rec: 04/28/24 17:18 [facility] [id number]) Functional Tests Dynamic Gait Index (DGI) Score 14 PT-OP-F Manual Assessment Start: 04/28/24 15:22 Freq: Status: Active Protocol: Document 04/28/24 15:22 [facility] (Rec: 04/28/24 17:18 [facility] [id number]) Manual Assessments Other Manual Assessments Other Manual Assessments brachioradialis: R 0; L 1+; triceps 0 B; biceps 1+ B; knee ext & plantar flexion reflexes: L 1+; R 2+ PT-OP-G Mobility & Gait Start: 04/28/24 15:22 Freq: Status: Active Protocol: Document 04/28/24 15:22 [facility] (Rec: 04/28/24 17:18 [facility] [id number]) OP Mobility Evaluation Transfers Sit to Stand slow and must use UEs; dec control OP Gait Assessment Comments Gait Comments dec stance time B w/ lat leaning; slow gait and dec push off B-evidence for imbalance Stair Climbing Evaluation Comments Stair Climbing Comments use of rail w/recip step up/ down; significantly dec control down PT-OP-M Strength Start: 04/28/24 15:22 Freq: Status: Active Protocol: Document 04/28/24 15:22 [facility] (Rec: 04/28/24 17:18 [facility] [id number]) Shoulder Strength Shoulder Manual Muscle Testing Right Flexion 2- Poor- Extension 3 Fair Abduction (C5) 2- Poor- External Rotation 3 Fair Internal Rotation 3+ Fair+ Left Flexion 2- Poor- Extension 3 Fair Abduction (C5) 2- Poor- External Rotation 3 Fair Internal Rotation 3+ Fair+ Comments abd about 40 deg B; flex about 80 deg B; pain w/end range PROM and PROm limited to about 140 deg flex B Elbow/Forearm Strength Elbow and Forearm Manual Muscle Testing Right Flexion (C6) 3+ Fair+ Extension (C7) 3+ Fair+ Left Flexion (C6) 3+ Fair+ Extension (C7) 3+ Fair+ Hip Strength Hip Manual Muscle Testing Right Flexion (L2) 3 Fair External Rotation 3 Fair Internal Rotation 3 Fair Left Flexion (L2) 3- Fair- External Rotation 3 Fair Internal Rotation 3 Fair Knee Strength Knee Manual Muscle Testing Right Flexion (S2) 4- Good- Extension (L3) 3+ Fair+ Left Flexion (S2) 4- Good- Extension (L3) 3+ Fair+ Ankle/Foot Strength Ankle and Foot Manual Muscle Testing Right Dorsiflexion (L4) 3+ Fair+ Plantarflexion (S1) 3 Fair Left Dorsiflexion (L4) 3+ Fair+ Plantarflexion (S1) 3+ Fair+ Comments seated PF testing B PT-OP-Q Treatments Start: 04/28/24 15:22 Freq: Status: Active Protocol: Document 05/19/24 08:08 AB (Rec: 05/19/24 10:17 AB [id number]) Cardio Equipment Recumbent Elliptical (Biodex) Duration (Minutes) 6 Resistance 1,2,1 Seat Position 0 Gym Equipment Shuttle Balance red clips Comments with head turns and visual scanning NBOS and stagger w/o head turns and visual scanning Therapeutic Exercises Sitting Exercises clamshell Sitting Exercise Name (trialed & added to HEP /c HO) Side bilateral Resistance Tb #2 at thighs Reps/Minutes X15 without hold and one one min hold Standing Exercises Wall slide Side bilateral Reps/Minutes 2 Comments verbal and visual cues row Standing Exercise Name HEP Side bilateral Resistance level one band Reps/Minutes X15 Comments verbal and visual cues L stretch Side bilateral Reps/Minutes X10 Comments Verbal and visual cues Neuro Re-Education Treatment Balance Activities step up taps Details on foam to 6 inch step Reps/Duration X12 Comments hands above bars CGA tandem Details CGA hands above bars Reps/Duration 10 feet X 6 hurdles Details hands above bars, CGA Reps/Duration 10 feet X 6 SLS Details CGA, hands above bars Reps/Duration X3 each LE with head turns and visual scanning PT-OP-T Assessment and Plan Start: 04/28/24 15:22 Freq: Status: Active Protocol: Document 05/19/24 08:08 AB (Rec: 05/19/24 10:17 AB [id number]) Physical Therapy Assessment Goals ROM Short Term Goal (STG) Pt will be able to do B shoulder flex to at least 100 deg actively STG Duration 05/31 Survey Rodman Goal (LTG) Pt will be able to do B shoulder flex to at least 140 deg actively w/o inc pain to allow greater ease w/overhead tasks. LTG Duration 07/21 activities Short Term Goal (STG) Pt will be able to tolerate biking 15 min a day w/o inc pain or significant fatigue for rest of day to show improved activity tolerance. STG Duration 05/31 Survey Rodman Goal (LTG) Pt will be able to resume walking daily about 1 mile w/o inc pain or feeling of unsteadiness or weakness LTG Duration 07/21 strength Short Term Goal (STG) Pt will be indep w/HEP STG Duration 05/31 Longterm Goal (LTG) Pt will score at least 4/5 on all UE and LE MMT B to show improved strength to allow greater ease of function LTG Duration 07/21 DGI Impairment 14 Short Term Goal (STG) Pt will improve DGI score to at least 17/24 to show improved balance and dec risk for falls. STG Duration 05/31 Survey Rodman Goal (LTG) Pt will improve DGI score to at least 20/24 to show improved balance and low risk for falls. LTG Duration 07/21 Assessment Summary Assessment Patient reports having no pain end of session. UE AROM continues to be limited, decreased desmond to wall slide flexion this session, reports feeling fatigued post. Physical Therapy Plan Frequency and Duration Frequency of Treatment 2x/Week Duration of treatment (weeks) 12 Plan of Care Start Date 04/28/24 Plan of Care End Date 07/21/24 Next Visit Focus/Plan Next Note Type Treatment Note Next Visit Plan Next add standing rows. POC: gradual progression of activity (careful not to do too much to over fatigue patient); whole body strengthening exercises (sit to stands w/UEs, short duration, seated hip strengthening) balance in clinic w/gait belt
--- NOTE | 2024-05-25 16:26 | PT.OTN ---
Current Diagnoses Other chronic pain (05/25/24) Spondylosis without myelopathy or radiculopathy, lumbar region (05/25/24) Other intervertebral disc degeneration, lumbar region (05/25/24) Cervicalgia (05/25/24) Low back pain, unspecified (05/25/24) Anesthesia of skin (05/25/24) Paresthesia of skin (05/25/24) Unsteadiness on feet (05/25/24) Other symptoms and signs involving the musculoskeletal system (05/25/24) Physical Therapy Treatment Note PT-OP-A Visit Information Start: 04/28/24 15:22 Freq: Status: Active Protocol: Document 05/25/24 13:48 AB (Rec: 05/25/24 16:26 AB [id number]) Out-Patient Physical Therapy Visit Information Visit Information Visit Type Treatment Note Visit Note Access Code: [email or web address] Visit Start Time 13:48 Visit Stop Time 14:30 Visit Number 7 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 (Rec: 04/28/24 17:18 [facility] [id number]) Current Condition History of Current Condition Onset Date about 2 months w/hx prior Current Complaints back pain, thoracic pain, body stiffness History of Current Condition Pt has had a lot of stress d/t past week having memory issues, and DIL having MCKEON and possible fluid in brain and dog being sick. Pt reports significant weakness in BUEs and LEs. Limited overhead B UE ROM. cervical, thoracic and lumbar MRIs looked okay except degenerative changes. MRI of head WNL. Pt reports last wed was really weak and legs collapse and she crumpled around garbage can and she couldn't straighten back up and had to lift her up . She has tingling for about 3 weeks where it was waking her up at night. It felt like pulsating from upper back into fingertips and all the way to toes. That has lessened some. Feel like trunk is going to be frozen. Has been not exercising but is exhausted. Did try the bike slowly and not for long and can do it. Has not been getting good sleep at night. Trying to keep busy since feels like if she stops, she will get too weak. Sometimes between shoulder blades and in lumbar area is painful. Pt had GI issues in spring and winter including nausesa but it is gone. Still having instances of voice change. She saw provider at w/spray up nose and throat. She has to go to GI doctor and has an appt Jun 10 along w/ May 26 Neurologist appt. Has a couple tests set for mid May. Pt walks dog 2x/day still but only 3 blocks and slowly and uses cane. Pt typically I w/o AD. Cane use inside most of the time now. Treatment Goals Patient/Caregiver Goals improve strength; back to exercising PT-OP-C Subjective Start: 04/28/24 15:22 Freq: Status: Active Protocol: Document 05/25/24 13:48 AB (Rec: 05/25/24 16:26 AB [id number]) OP-PT Subjective Patient Comments Patient Comments Patient reports she is feeling stronger. PT-OP-E Functional Tests Start: 04/28/24 15:22 Freq: Status: Active Protocol: Document 04/28/24 15:22 [facility] (Rec: 04/28/24 17:18 [facility] [id number]) Functional Tests Dynamic Gait Index (DGI) Score PT-OP-F Manual Assessment Start: 04/28/24 15:22 Freq: Status: Active Protocol: Document 04/28/24 15:22 [facility] (Rec: 04/28/24 17:18 [facility] [id number]) Manual Assessments Other Manual Assessments Other Manual Assessments brachioradialis: R 0; L 1+; triceps 0 B; biceps 1+ B; knee ext & plantar flexion reflexes: L 1+; R 2+ PT-OP-G Mobility & Gait Start: 04/28/24 15:22 Freq: Status: Active Protocol: Document 04/28/24 15:22 [facility] (Rec: 04/28/24 17:18 [facility] [id number]) OP Mobility Evaluation Transfers Sit to Stand slow and must use UEs; dec control OP Gait Assessment Comments Gait Comments dec stance time B w/ lat leaning; slow gait and dec push off B-evidence for imbalance Stair Climbing Evaluation Comments Stair Climbing Comments use of rail w/recip step up/ down; significantly dec control down PT-OP-M Strength Start: 04/28/24 15:22 Freq: Status: Active Protocol: Document 04/28/24 15:22 [facility] (Rec: 04/28/24 17:18 [facility] [id number]) Shoulder Strength Shoulder Manual Muscle Testing Right Flexion 2- Poor- Extension 3 Fair Abduction (C5) 2- Poor- External Rotation 3 Fair Internal Rotation 3+ Fair+ Left Flexion 2- Poor- Extension 3 Fair Abduction (C5) 2- Poor- External Rotation 3 Fair Internal Rotation 3+ Fair+ Comments abd about 40 deg B; flex about 80 deg B; pain w/end range PROM and PROm limited to about 140 deg flex B Elbow/Forearm Strength Elbow and Forearm Manual Muscle Testing Right Flexion (C6) 3+ Fair+ Extension (C7) 3+ Fair+ Left Flexion (C6) 3+ Fair+ Extension (C7) 3+ Fair+ Hip Strength Hip Manual Muscle Testing Right Flexion (L2) 3 Fair External Rotation 3 Fair Internal Rotation 3 Fair Left Flexion (L2) 3- Fair- External Rotation 3 Fair Internal Rotation 3 Fair Knee Strength Knee Manual Muscle Testing Right Flexion (S2) 4- Good- Extension (L3) 3+ Fair+ Left Flexion (S2) 4- Good- Extension (L3) 3+ Fair+ Ankle/Foot Strength Ankle and Foot Manual Muscle Testing Right Dorsiflexion (L4) 3+ Fair+ Plantarflexion (S1) 3 Fair Left Dorsiflexion (L4) 3+ Fair+ Plantarflexion (S1) 3+ Fair+ Comments seated PF testing B PT-OP-Q Treatments Start: 04/28/24 15:22 Freq: Status: Active Protocol: Document 05/25/24 13:48 AB (Rec: 05/25/24 16:26 [id number]) Cardio Equipment Recumbent Elliptical (Biodex) Duration (Minutes) 6 Resistance 1,3,1 Seat Position 0 Therapeutic Exercises Sitting Exercises clamshell Sitting Exercise Name (trialed & added to HEP /c HO) Side bilateral Resistance Tb #3 at thighs Reps/Minutes X10 without hold and one one min hold resisted scap retraction & ER Sitting Exercise Name review HEP Performed standing single arm today Side bilateral Resistance TB #1 latex free Reps/Minutes 10 Comments cues gentle scap retraction Standing Exercises Wall slide Side bilateral Reps/Minutes 10 Comments verbal and visual cues row Standing Exercise Name HEP Side bilateral Resistance level 3 latex free Reps/Minutes X15 Comments verbal and visual cues L stretch Side bilateral Reps/Minutes X10 Comments Verbal and visual cues Therapeutic Activity Therapeutic Activity sit to stand Reps/Minutes X3 Comments Patient ed mechanics of sit to stand. Verbal cues to bend right knee past 90 deg Neuro Re-Education Treatment Balance Activities step up taps Details on foam to 6 inch step Reps/Duration X12 Comments hands above bars CGA tandem Details CGA hands above bars Reps/Duration 10 feet X 6 hurdles Details hands above bars, CGA Reps/Duration 10 feet X 6 PT-OP-T Assessment and Plan Start: 04/28/24 15:22 Freq: Status: Active Protocol: Document 05/25/24 13:48 AB (Rec: 05/25/24 16:26 AB [id number]) Physical Therapy Assessment Goals ROM Short Term Goal (STG) Pt will be able to do B shoulder flex to at least 100 deg actively STG Duration 05/31 Correction Goal (LTG) Pt will be able to do B shoulder flex to at least 140 deg actively w/o inc pain to allow greater ease w/overhead tasks. LTG Duration 07/21 activities Short Term Goal (STG) Pt will be able to tolerate biking 15 min a day w/o inc pain or significant fatigue for rest of day to show improved activity tolerance. STG Duration 05/31 Patrol Police Lieutenant Goal (LTG) Pt will be able to resume walking daily about 1 mile w/o inc pain or feeling of unsteadiness or weakness LTG Duration 07/21 strength Short Term Goal (STG) Pt will be indep w/HEP STG Duration 05/31 Correction Goal (LTG) Pt will score at least 4/5 on all UE and LE MMT B to show improved strength to allow greater ease of function LTG Duration 07/21 DGI Impairment 14/24 Short Term Goal (STG) Pt will improve DGI score to at least 17/24 to show improved balance and dec risk for falls. STG Duration 05/31 Patrol Police Lieutenant Goal (LTG) Pt will improve DGI score to at least 20/24 to show improved balance and low risk for falls. LTG Duration 07/21 Assessment Summary Assessment Patient progressed to level 3 band latex free for seated hip abduction and row. AROM shoulder flexion limited to 86 deg in standing bilateral UE. Patient reports having no pain end of session. Physical Therapy Plan Frequency and Duration Frequency of Treatment 2x/Week Duration of treatment (weeks) 12 Plan of Care Start Date 04/28/24 Plan of Care End Date 07/21/24 Next Visit Focus/Plan Next Note Type Treatment Note Next Visit Plan Next add POC: gradual progression of activity (careful not to do too much to over fatigue patient); whole body strengthening exercises (sit to stands w/UEs, short duration, seated hip strengthening) balance in clinic w/gait belt
--- NOTE | 2024-05-28 18:11 | PT.OTN ---
Current Diagnoses Other chronic pain (05/28/24) Spondylosis without myelopathy or radiculopathy, lumbar region (05/28/24) Other intervertebral disc degeneration, lumbar region (05/28/24) Cervicalgia (05/28/24) Low back pain, unspecified (05/28/24) Anesthesia of skin (05/28/24) Paresthesia of skin (05/28/24) Unsteadiness on feet (05/28/24) Other symptoms and signs involving the musculoskeletal system (05/28/24) Physical Therapy Treatment Note PT-OP-A Visit Information Start: 04/28/24 15:22 Freq: Status: Active Protocol: Document 05/28/24 14:35 [facility] (Rec: 05/28/24 18:11 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 (Rec: 04/28/24 17:18 [facility] [id number]) Current Condition History of Current Condition Onset Date about 2 months w/hx prior Current Complaints back pain, thoracic pain, body stiffness History of Current Condition Pt has had a lot of stress d/t past week having memory issues, and DIL having MCKEON and possible fluid in brain and dog being sick. Pt reports significant weakness in BUEs and LEs. Limited overhead B UE ROM. cervical, thoracic and lumbar MRIs looked okay except degenerative changes. MRI of head WNL. Pt reports last wed was really weak and legs collapse and she crumpled around garbage can and she couldn't straighten back up and had to lift her up . She has tingling for about 3 weeks where it was waking her up at night. It felt like pulsating from upper back into fingertips and all the way to toes. That has lessened some. Feel like trunk is going to be frozen. Has been not exercising but is exhausted. Did try the bike slowly and not for long and can do it. Has not been getting good sleep at night. Trying to keep busy since feels like if she stops, she will get too weak. Sometimes between shoulder blades and in lumbar area is painful. Pt had GI issues in spring and winter including nausesa but it is gone. Still having instances of voice change. She saw provider at w/spray up nose and throat. She has to go to GI doctor and has an appt Jun 10 along w/ May 26 Neurologist appt. Has a couple tests set for mid May. Pt walks dog 2x/day still but only 3 blocks and slowly and uses cane. Pt typically I w/o AD. Cane use inside most of the time now. Treatment Goals Patient/Caregiver Goals improve strength; back to exercising PT-OP-C Subjective Start: 04/28/24 15:22 Freq: Status: Active Protocol: Document 05/28/24 14:35 [facility] (Rec: 05/28/24 18:11 [facility] [id number]) OP-PT Subjective Patient Comments Patient Comments Pt is not using cane anymore. feels like RLE is weaker overall PT-OP-E Functional Tests Start: 04/28/24 15:22 Freq: Status: Active Protocol: Document 05/28/24 14:35 [facility] (Rec: 05/28/24 18:11 [facility] [id number]) Functional Tests Dynamic Gait Index (DGI) Score PT-OP-F Manual Assessment Start: 04/28/24 15:22 Freq: Status: Active Protocol: Document 04/28/24 15:22 [facility] (Rec: 04/28/24 17:18 [facility] [id number]) Manual Assessments Other Manual Assessments Other Manual Assessments brachioradialis: R 0; L 1+; triceps 0 B; biceps 1+ B; knee ext & plantar flexion reflexes: L 1+; R 2+ PT-OP-G Mobility & Gait Start: 04/28/24 15:22 Freq: Status: Active Protocol: Document 04/28/24 15:22 [facility] (Rec: 04/28/24 17:18 [facility] [id number]) OP Mobility Evaluation Transfers Sit to Stand slow and must use UEs; dec control OP Gait Assessment Comments Gait Comments dec stance time B w/ lat leaning; slow gait and dec push off B-evidence for imbalance Stair Climbing Evaluation Comments Stair Climbing Comments use of rail w/recip step up/ down; significantly dec control down PT-OP-K Range of Motion Start: 04/28/24 15:22 Freq: Status: Active Protocol: Document 05/28/24 14:35 [facility] (Rec: 05/28/24 18:11 [facility] [id number]) Shoulder Goniometric Range of Motion Shoulder L Flexion 71 r Flexion 68 PT-OP-M Strength Start: 04/28/24 15:22 Freq: Status: Active Protocol: Document 05/28/24 14:35 [facility] (Rec: 05/28/24 18:11 [facility] [id number]) Shoulder Strength Shoulder Manual Muscle Testing Right Flexion 2- Poor- Extension 3+ Fair+ Abduction (C5) 2- Poor- External Rotation 4- Good- Internal Rotation 4 Good Left Flexion 2- Poor- Extension 3+ Fair+ Abduction (C5) 2- Poor- External Rotation 4- Good- Internal Rotation 4 Good Elbow/Forearm Strength Elbow and Forearm Manual Muscle Testing Right Flexion (C6) 4 Good Extension (C7) 3+ Fair+ Left Flexion (C6) 4 Good Extension (C7) 3+ Fair+ Hip Strength Hip Manual Muscle Testing Right Flexion (L2) 3+ Fair+ External Rotation 3+ Fair+ Internal Rotation 3+ Fair+ Left Flexion (L2) 3+ Fair+ External Rotation 3+ Fair+ Internal Rotation 3+ Fair+ Knee Strength Knee Manual Muscle Testing Right Flexion (S2) 3+ Fair+ Extension (L3) 4- Good- Left Flexion (S2) 4- Good- Extension (L3) 4- Good- Ankle/Foot Strength Ankle and Foot Manual Muscle Testing Right Dorsiflexion (L4) 4 Good Plantarflexion (S1) 3+ Fair+ Left Dorsiflexion (L4) 4 Good Plantarflexion (S1) 3+ Fair+ Comments seated PF testing B PT-OP-Q Treatments Start: 04/28/24 15:22 Freq: Status: Active Protocol: Document 05/28/24 14:35 [facility] (Rec: 05/28/24 18:11 [facility] [id number]) Gym Equipment Shuttle Recovery Bilateral Squats Details full range Resistance 50# Shuttle Recovery Platform Stable Reps/Time 30 cues control TKE Therapeutic Exercises Standing Exercises sidestep Standing Exercise Name attempted in mini squat but pt unable ROM Standing Exercise Name 1. fwd lean on counter then alt UE lift 2. AAROM bar flex Side bilateral Reps/Minutes 1. 2x8 2. 10 sec hold x2 B Neuro Re-Education Treatment Balance Activities dynamic balance Comments walking fast 200ft lower [place] around clinic hurdles Details hands above bars, CGA Equipment 6 hurdles Comments 1. fwd recip x8 2. sidestep x2 B Coordination Activities arm swing Comments 200ft w/exaggerated arm swing Other Activities testing Comments DGI PT-OP-T Assessment and Plan Start: 04/28/24 15:22 Freq: Status: Active Protocol: Document 05/28/24 14:35 [facility] (Rec: 05/28/24 18:11 [facility] [id number]) Physical Therapy Assessment Goals ROM Short Term Goal (STG) Pt will be able to do B shoulder flex to at least 100 deg actively STG Duration 05/31 Hockey Player Goal (LTG) Pt will be able to do B shoulder flex to at least 140 deg actively w/o inc pain to allow greater ease w/overhead tasks. LTG Duration 07/21 activities Short Term Goal (STG) Pt will be able to tolerate biking 15 min a day w/o inc pain or significant fatigue for rest of day to show improved activity tolerance. 05/28-has been doing 5 min every now and then-feels okay. STG Duration 05/31 Hockey Player Goal (LTG) Pt will be able to resume walking daily about 1 mile w/o inc pain or feeling of unsteadiness or weakness 05/28-Has been able to do 4 blocks twice a day -increased some; did 1 mile walk 1x and felt okay-depends on day LTG Duration 07/21 strength Short Term Goal (STG) Pt will be indep w/HEP STG Duration achieved advancing as able Prison Goal (LTG) Pt will score at least 4/5 on all UE and LE MMT B to show improved strength to allow greater ease of function 05/28-improving LTG Duration 07/21 DGI Impairment Short Term Goal (STG) Pt will improve DGI score to at least 17/24 to show improved balance and dec risk for falls. 05/28-16 STG Duration 05/31 Prison Goal (LTG) Pt will improve DGI score to at least 20/24 to show improved balance and low risk for falls. LTG Duration 07/21 Assessment Summary Assessment Pt making good progress w/PT with overall improved balance and strength, but does still have notable weakness especially on R side. She has inability to inc speed significantly when walking likely related to weakness. Physical Therapy Plan Frequency and Duration Frequency of Treatment 2x/Week Duration of treatment (weeks) 12 Plan of Care Start Date 04/28/24 Plan of Care End Date 07/21/24 Therapeutic Interventions Therapeutic Interventions Balance Training,Canalithic Repositioning,Coordination Training,Gait Training,Home Exercise Program,Joint Mobilizations,Manual Therapy, Neuromuscular Re-education, Patient/Caregiver Education, Self-Care/Home Management,Soft Tissue Mobilization,Taping, Therapeutic Activities, Therapeutic Exercises, Vestibular Rehabilitation Modalities Cold Pack/Ice Massage,Electric Stimulation,Hot Packs Next Visit Focus/Plan Next Note Type Treatment Note Next Visit Plan POC: gradual progression of activity (careful not to do too much to over fatigue patient); whole body strengthening exercises (sit to stands w/UEs, short duration, seated hip strengthening) balance in clinic w/gait belt
--- NOTE | 2024-06-03 14:32 | PT.OTN ---
Current Diagnoses Other chronic pain (06/03/24) Spondylosis without myelopathy or radiculopathy, lumbar region (06/03/24) Other intervertebral disc degeneration, lumbar region (06/03/24) Cervicalgia (06/03/24) Low back pain, unspecified (06/03/24) Anesthesia of skin (06/03/24) Paresthesia of skin (06/03/24) Unsteadiness on feet (06/03/24) Other symptoms and signs involving the musculoskeletal system (06/03/24) Physical Therapy Treatment Note PT-OP-A Visit Information Start: 04/28/24 15:22 Freq: Status: Active Protocol: Document 06/03/24 13:51 [facility] (Rec: 06/03/24 14:32 [facility] [id number]) Out-Patient Physical Therapy Visit Information Visit Information Visit Type Treatment Note Visit Note Access Code: [email or web address] Visit Start Time 13:47 Visit Stop Time 14:27 Visit Number 9 Number of [employer] Visits 0 PT-OP-B Current Condition Start: 04/28/24 15:22 Freq: Status: Active Protocol: Document 04/28/24 15:22 [facility] (Rec: 04/28/24 17:18 [facility] [id number]) Current Condition History of Current Condition Onset Date about 2 months w/hx prior Current Complaints back pain, thoracic pain, body stiffness History of Current Condition Pt has had a lot of stress d/t past week having memory issues, and DIL having MCKEON and possible fluid in brain and dog being sick. Pt reports significant weakness in BUEs and LEs. Limited overhead B UE ROM. cervical, thoracic and lumbar MRIs looked okay except degenerative changes. MRI of head WNL. Pt reports last wed was really weak and legs collapse and she crumpled around garbage can and she couldn't straighten back up and had to lift her up . She has tingling for about 3 weeks where it was waking her up at night. It felt like pulsating from upper back into fingertips and all the way to toes. That has lessened some. Feel like trunk is going to be frozen. Has been not exercising but is exhausted. Did try the bike slowly and not for long and can do it. Has not been getting good sleep at night. Trying to keep busy since feels like if she stops, she will get too weak. Sometimes between shoulder blades and in lumbar area is painful. Pt had GI issues in spring and winter including nausesa but it is gone. Still having instances of voice change. She saw provider at w/spray up nose and throat. She has to go to GI doctor and has an appt Jun 10 along w/ May 26 Neurologist appt. Has a couple tests set for mid May. Pt walks dog 2x/day still but only 3 blocks and slowly and uses cane. Pt typically I w/o AD. Cane use inside most of the time now. Treatment Goals Patient/Caregiver Goals improve strength; back to exercising PT-OP-C Subjective Start: 04/28/24 15:22 Freq: Status: Active Protocol: Document 06/03/24 13:51 [facility] (Rec: 06/03/24 14:32 [facility] [id number]) OP-PT Subjective Patient Comments Patient Comments Pt reports she has been trying to walk faster and ride bike more PT-OP-E Functional Tests Start: 04/28/24 15:22 Freq: Status: Active Protocol: Document 05/28/24 14:35 [facility] (Rec: 05/28/24 18:11 [facility] [id number]) Functional Tests Dynamic Gait Index (DGI) Score PT-OP-F Manual Assessment Start: 04/28/24 15:22 Freq: Status: Active Protocol: Document 04/28/24 15:22 [facility] (Rec: 04/28/24 17:18 [facility] [id number]) Manual Assessments Other Manual Assessments Other Manual Assessments brachioradialis: R 0; L 1+; triceps 0 B; biceps 1+ B; knee ext & plantar flexion reflexes: L 1+; R 2+ PT-OP-G Mobility & Gait Start: 04/28/24 15:22 Freq: Status: Active Protocol: Document 04/28/24 15:22 [facility] (Rec: 04/28/24 17:18 [facility] [id number]) OP Mobility Evaluation Transfers Sit to Stand slow and must use UEs; dec control OP Gait Assessment Comments Gait Comments dec stance time B w/ lat leaning; slow gait and dec push off B-evidence for imbalance Stair Climbing Evaluation Comments Stair Climbing Comments use of rail w/recip step up/ down; significantly dec control down PT-OP-K Range of Motion Start: 04/28/24 15:22 Freq: Status: Active Protocol: Document 05/28/24 14:35 [facility] (Rec: 05/28/24 18:11 [facility] [id number]) Shoulder Goniometric Range of Motion Shoulder L Flexion 71 r Flexion 68 PT-OP-M Strength Start: 04/28/24 15:22 Freq: Status: Active Protocol: Document 05/28/24 14:35 [facility] (Rec: 05/28/24 18:11 [facility] [id number]) Shoulder Strength Shoulder Manual Muscle Testing Right Flexion 2- Poor- Extension 3+ Fair+ Abduction (C5) 2- Poor- External Rotation 4- Good- Internal Rotation 4 Good Left Flexion 2- Poor- Extension 3+ Fair+ Abduction (C5) 2- Poor- External Rotation 4- Good- Internal Rotation 4 Good Elbow/Forearm Strength Elbow and Forearm Manual Muscle Testing Right Flexion (C6) 4 Good Extension (C7) 3+ Fair+ Left Flexion (C6) 4 Good Extension (C7) 3+ Fair+ Hip Strength Hip Manual Muscle Testing Right Flexion (L2) 3+ Fair+ External Rotation 3+ Fair+ Internal Rotation 3+ Fair+ Left Flexion (L2) 3+ Fair+ External Rotation 3+ Fair+ Internal Rotation 3+ Fair+ Knee Strength Knee Manual Muscle Testing Right Flexion (S2) 3+ Fair+ Extension (L3) 4- Good- Left Flexion (S2) 4- Good- Extension (L3) 4- Good- Ankle/Foot Strength Ankle and Foot Manual Muscle Testing Right Dorsiflexion (L4) 4 Good Plantarflexion (S1) 3+ Fair+ Left Dorsiflexion (L4) 4 Good Plantarflexion (S1) 3+ Fair+ Comments seated PF testing B PT-OP-Q Treatments Start: 04/28/24 15:22 Freq: Status: Active Protocol: Document 06/03/24 13:51 [facility] (Rec: 06/03/24 14:32 [facility] [id number]) Gym Equipment Shuttle Recovery Unilateral Squats Resistance 25# Reps/Time 20 ea Bilateral Squats Details full range Resistance 37#,50# ([employer] Shuttle Recovery Platform Stable Reps/Time 15 ea wt Shuttle Balance red clips Comments fwd and side: WBOS & NBOS fwd: staggered stance B Therapeutic Exercises Standing Exercises DF Standing Exercise Name back at wall Side bilateral Reps/Minutes 15 heel raises Standing Exercise Name DL Side bilateral Reps/Minutes 15 resisted walk Standing Exercise Name fwd/back Side bilateral Resistance koi band Reps/Minutes 20ft ea sidestep Standing Exercise Name sidestep Side bilateral Resistance koi at ankles Reps/Minutes 20ft ea Neuro Re-Education Treatment Balance Activities hurdles Details hands above bars, CGA Equipment 6 hurdles Comments 1. fwd recip x6 2. sidestep x1 B foam Comments 1. step up onto 5 in step w/ black foam on top x10 B tilt board Comments fwd/back and lat wt shifts PT-OP-T Assessment and Plan Start: 04/28/24 15:22 Freq: Status: Active Protocol: Document 06/03/24 13:51 [facility] (Rec: 06/03/24 14:32 [facility] [id number]) Physical Therapy Assessment Goals ROM Short Term Goal (STG) Pt will be able to do B shoulder flex to at least 100 deg actively STG Duration 05/31 Pneumatic Press Hand Goal (LTG) Pt will be able to do B shoulder flex to at least 140 deg actively w/o inc pain to allow greater ease w/overhead tasks. LTG Duration 07/21 activities Short Term Goal (STG) Pt will be able to tolerate biking 15 min a day w/o inc pain or significant fatigue for rest of day to show improved activity tolerance. 05/28-has been doing 5 min every now and then-feels okay. STG Duration 05/31 Pneumatic Press Hand Goal (LTG) Pt will be able to resume walking daily about 1 mile w/o inc pain or feeling of unsteadiness or weakness 05/28-Has been able to do 4 blocks twice a day -increased some; did 1 mile walk 1x and felt okay-depends on day LTG Duration 07/21 strength Short Term Goal (STG) Pt will be indep w/HEP STG Duration achieved advancing as able Pneumatic Press Hand Goal (LTG) Pt will score at least 4/5 on all UE and LE MMT B to show improved strength to allow greater ease of function 05/28-improving LTG Duration 07/21 DGI Impairment Short Term Goal (STG) Pt will improve DGI score to at least 17/24 to show improved balance and dec risk for falls. 05/28-16 STG Duration 10/6 Pneumatic Press Hand Goal (LTG) Pt will improve DGI score to at least 20/24 to show improved balance and low risk for falls. LTG Duration 07/21 Assessment Summary Assessment Pt did better with balance activities today and shows greater ease w/the activities. She cont to struggle w/R>L strength Physical Therapy Plan Frequency and Duration Frequency of Treatment 2x/Week Duration of treatment (weeks) 12 Plan of Care Start Date 04/28/24 Plan of Care End Date 07/21/24 Next Visit Focus/Plan Next Note Type Treatment Note Next Visit Plan advance balance and strength as able
--- NOTE | 2024-06-09 11:32 | PT.OTN ---
Current Diagnoses Other chronic pain (06/09/24) Spondylosis without myelopathy or radiculopathy, lumbar region (06/09/24) Other intervertebral disc degeneration, lumbar region (06/09/24) Cervicalgia (06/09/24) Low back pain, unspecified (06/09/24) Anesthesia of skin (06/09/24) Paresthesia of skin (06/09/24) Unsteadiness on feet (06/09/24) Other symptoms and signs involving the musculoskeletal system (06/09/24) Physical Therapy Treatment Note PT-OP-A Visit Information Start: 04/28/24 15:22 Freq: Status: Active Protocol: Document 06/09/24 07:30 [facility] (Rec: 06/09/24 11:32 [facility] [id number]) Out-Patient Physical Therapy Visit Information Visit Information Visit Type Progress Note Visit Note Access Code: [email or web address] 09/04 Visit Start Time 07:32 Visit Stop Time 08:15 Visit Number 10 Number of DOUBLE [employer]IM[employer] Visits 0 PT-OP-B Current Condition Start: 04/28/24 15:22 Freq: Status: Active Protocol: Document 04/28/24 15:22 [facility] (Rec: 04/28/24 17:18 [facility] [id number]) Current Condition History of Current Condition Onset Date about 2 months w/hx prior Current Complaints back pain, thoracic pain, body stiffness History of Current Condition Pt has had a lot of stress d/t past week having memory issues, and DIL having MCKEON and possible fluid in brain and dog being sick. Pt reports significant weakness in BUEs and LEs. Limited overhead B UE ROM. cervical, thoracic and lumbar MRIs looked okay except degenerative changes. MRI of head WNL. Pt reports last wed was really weak and legs collapse and she crumpled around garbage can and she couldn't straighten back up and had to lift her up . She has tingling for about 3 weeks where it was waking her up at night. It felt like pulsating from upper back into fingertips and all the way to toes. That has lessened some. Feel like trunk is going to be frozen. Has been not exercising but is exhausted. Did try the bike slowly and not for long and can do it. Has not been getting good sleep at night. Trying to keep busy since feels like if she stops, she will get too weak. Sometimes between shoulder blades and in lumbar area is painful. Pt had GI issues in spring and winter including nausesa but it is gone. Still having instances of voice change. She saw provider at w/spray up nose and throat. She has to go to GI doctor and has an appt Jun 10 along w/ May 26 Neurologist appt. Has a couple tests set for mid May. Pt walks dog 2x/day still but only 3 blocks and slowly and uses cane. Pt typically I w/o AD. Cane use inside most of the time now. Treatment Goals Patient/Caregiver Goals improve strength; back to exercising PT-OP-C Subjective Start: 04/28/24 15:22 Freq: Status: Active Protocol: Document 06/09/24 07:30 [facility] (Rec: 06/09/24 11:32 [facility] [id number]) OP-PT Subjective Patient Comments Patient Comments Pt reports starting Sat, she was suddenly able to raise arms and felt a lot stronger PT-OP-E Functional Tests Start: 04/28/24 15:22 Freq: Status: Active Protocol: Document 05/28/24 14:35 [facility] (Rec: 05/28/24 18:11 [facility] [id number]) Functional Tests Dynamic Gait Index (DGI) Score PT-OP-F Manual Assessment Start: 04/28/24 15:22 Freq: Status: Active Protocol: Document 04/28/24 15:22 [facility] (Rec: 04/28/24 17:18 [facility] [id number]) Manual Assessments Other Manual Assessments Other Manual Assessments brachioradialis: R 0; L 1+; triceps 0 B; biceps 1+ B; knee ext & plantar flexion reflexes: L 1+; R 2+ PT-OP-G Mobility & Gait Start: 04/28/24 15:22 Freq: Status: Active Protocol: Document 04/28/24 15:22 [facility] (Rec: 04/28/24 17:18 [facility] [id number]) OP Mobility Evaluation Transfers Sit to Stand slow and must use UEs; dec control OP Gait Assessment Comments Gait Comments dec stance time B w/ lat leaning; slow gait and dec push off B-evidence for imbalance Stair Climbing Evaluation Comments Stair Climbing Comments use of rail w/recip step up/ down; significantly dec control down PT-OP-K Range of Motion Start: 04/28/24 15:22 Freq: Status: Active Protocol: Document 05/28/24 14:35 [facility] (Rec: 05/28/24 18:11 [facility] [id number]) Shoulder Goniometric Range of Motion Shoulder L Flexion 71 r Flexion 68 PT-OP-M Strength Start: 04/28/24 15:22 Freq: Status: Active Protocol: Document 05/28/24 14:35 [facility] (Rec: 05/28/24 18:11 [facility] [id number]) Shoulder Strength Shoulder Manual Muscle Testing Right Flexion 2- Poor- Extension 3+ Fair+ Abduction (C5) 2- Poor- External Rotation 4- Good- Internal Rotation 4 Good Left Flexion 2- Poor- Extension 3+ Fair+ Abduction (C5) 2- Poor- External Rotation 4- Good- Internal Rotation 4 Good Elbow/Forearm Strength Elbow and Forearm Manual Muscle Testing Right Flexion (C6) 4 Good Extension (C7) 3+ Fair+ Left Flexion (C6) 4 Good Extension (C7) 3+ Fair+ Hip Strength Hip Manual Muscle Testing Right Flexion (L2) 3+ Fair+ External Rotation 3+ Fair+ Internal Rotation 3+ Fair+ Left Flexion (L2) 3+ Fair+ External Rotation 3+ Fair+ Internal Rotation 3+ Fair+ Knee Strength Knee Manual Muscle Testing Right Flexion (S2) 3+ Fair+ Extension (L3) 4- Good- Left Flexion (S2) 4- Good- Extension (L3) 4- Good- Ankle/Foot Strength Ankle and Foot Manual Muscle Testing Right Dorsiflexion (L4) 4 Good Plantarflexion (S1) 3+ Fair+ Left Dorsiflexion (L4) 4 Good Plantarflexion (S1) 3+ Fair+ Comments seated PF testing B PT-OP-Q Treatments Start: 04/28/24 15:22 Freq: Status: Active Protocol: Document 06/09/24 07:30 [facility] (Rec: 06/09/24 11:32 [facility] [id number]) Gym Equipment Shuttle Recovery Unilateral Squats Resistance 37# Reps/Time 20 ea Bilateral Squats Details full range Resistance 75# ([employer]), 87# Shuttle Recovery Platform Stable Reps/Time 15 ea wt Therapeutic Exercises Standing Exercises push up Standing Exercise Name wall Side bilateral Reps/Minutes 12 flex Standing Exercise Name B Habd w/flex Side bilateral Equipment Used L1 Reps/Minutes 15 Neuro Re-Education Treatment Balance Activities dynamic balance Comments backwards walk x30 ft hurdles Details hands above bars, CGA Equipment 6 hurdles Comments 1. fwd recip x8 (w/foam btwn) Other Activities testing Comments DGI PT-OP-T Assessment and Plan Start: 04/28/24 15:22 Freq: Status: Active Protocol: Document 06/09/24 07:30 [facility] (Rec: 06/09/24 11:32 [facility] [id number]) Physical Therapy Assessment Goals ROM Short Term Goal (STG) Pt will be able to do B shoulder flex to at least 100 deg actively STG Duration achieved 06/09 [employer] Heel Piece Shaper Goal (LTG) Pt will be able to do B shoulder flex to at least 140 deg actively w/o inc pain to allow greater ease w/overhead tasks. 06/09-some discomfort w/ overhead ROM but can move overhead LTG Duration 07/21 activities Short Term Goal (STG) Pt will be able to tolerate biking 15 min a day w/o inc pain or significant fatigue for rest of day to show improved activity tolerance. 05/28-has been doing 5 min every now and then-feels okay. 06/09-10 min a day STG Duration 05/31 [facility] Goal (LTG) Pt will be able to resume walking daily about 1 mile w/o inc pain or feeling of unsteadiness or weakness 05/28-Has been able to do 4 blocks twice a day -increased some; did 1 mile walk 1x and felt okay-depends on day LTG Duration 07/21 strength Short Term Goal (STG) Pt will be indep w/HEP STG Duration achieved advancing as able [facility] Goal (LTG) Pt will score at least 4/5 on all UE and LE MMT B to show improved strength to allow greater ease of function 05/28-improving LTG Duration 07/21 DGI Impairment Short Term Goal (STG) Pt will improve DGI score to at least 17/24 to show improved balance and dec risk for falls. 05/28-16 STG Duration achieved 06/09 [facility] Goal (LTG) Pt will improve DGI score to at least 20/24 to show improved balance and low risk for falls. LTG Duration achieved 06/09 Assessment Summary Assessment Pt is progressing well and shows improved UE ROM along w/ much improved balance today. MMT not tested but pt did show improved strengthw/activities today. Cont PT to improve functional mobility and strength Physical Therapy Plan Frequency and Duration Frequency of Treatment 2x/Week Duration of treatment (weeks) 12 Plan of Care Start Date 04/28/24 Plan of Care End Date 07/21/24 Next Visit Focus/Plan Next Note Type Treatment Note Next Visit Plan advance balance and strength as able advance HEP
--- NOTE | 2024-06-11 12:23 | PT.OTN ---
Current Diagnoses Other chronic pain (06/11/24) Spondylosis without myelopathy or radiculopathy, lumbar region (06/11/24) Other intervertebral disc degeneration, lumbar region (06/11/24) Cervicalgia (06/11/24) Low back pain, unspecified (06/11/24) Anesthesia of skin (06/11/24) Paresthesia of skin (06/11/24) Unsteadiness on feet (06/11/24) Other symptoms and signs involving the musculoskeletal system (06/11/24) Physical Therapy Treatment Note PT-OP-A Visit Information Start: 04/28/24 15:22 Freq: Status: Active Protocol: Document 06/11/24 11:38 [facility] (Rec: 06/11/24 12:23 [facility] [id number]) Out-Patient Physical Therapy Visit Information Visit Information Visit Type Treatment Note Visit Note 10/05 Visit Start Time 11:36 Visit Stop Time 12:15 Visit Number 11 Number of TAX MAP TECHNICIAN Visits 0 PT-OP-B Current Condition Start: 04/28/24 15:22 Freq: Status: Active Protocol: Document 04/28/24 15:22 [facility] (Rec: 04/28/24 17:18 [facility] [id number]) Current Condition History of Current Condition Onset Date about 2 months w/hx prior Current Complaints back pain, thoracic pain, body stiffness History of Current Condition Pt has had a lot of stress d/t past week having memory issues, and DIL having MCKEON and possible fluid in brain and dog being sick. Pt reports significant weakness in BUEs and LEs. Limited overhead B UE ROM. cervical, thoracic and lumbar MRIs looked okay except degenerative changes. MRI of head WNL. Pt reports last wed was really weak and legs collapse and she crumpled around garbage can and she couldn't straighten back up and had to lift her up . She has tingling for about 3 weeks where it was waking her up at night. It felt like pulsating from upper back into fingertips and all the way to toes. That has lessened some. Feel like trunk is going to be frozen. Has been not exercising but is exhausted. Did try the bike slowly and not for long and can do it. Has not been getting good sleep at night. Trying to keep busy since feels like if she stops, she will get too weak. Sometimes between shoulder blades and in lumbar area is painful. Pt had GI issues in spring and winter including nausesa but it is gone. Still having instances of voice change. She saw provider at w/spray up nose and throat. She has to go to GI doctor and has an appt Jun 10 along w/ May 26 Neurologist appt. Has a couple tests set for mid May. Pt walks dog 2x/day still but only 3 blocks and slowly and uses cane. Pt typically I w/o AD. Cane use inside most of the time now. Treatment Goals Patient/Caregiver Goals improve strength; back to exercising PT-OP-C Subjective Start: 04/28/24 15:22 Freq: Status: Active Protocol: Document 06/11/24 11:38 [facility] (Rec: 06/11/24 12:23 [facility] [id number]) OP-PT Subjective Patient Comments Patient Comments pt reports some mm soreness (R arm mostly) after last session. PT-OP-E Functional Tests Start: 04/28/24 15:22 Freq: Status: Active Protocol: Document 05/28/24 14:35 [facility] (Rec: 05/28/24 18:11 [facility] [id number]) Functional Tests Dynamic Gait Index (DGI) Score PT-OP-F Manual Assessment Start: 04/28/24 15:22 Freq: Status: Active Protocol: Document 04/28/24 15:22 [facility] (Rec: 04/28/24 17:18 [facility] [id number]) Manual Assessments Other Manual Assessments Other Manual Assessments brachioradialis: R 0; L 1+; triceps 0 B; biceps 1+ B; knee ext & plantar flexion reflexes: L 1+; R 2+ PT-OP-G Mobility & Gait Start: 04/28/24 15:22 Freq: Status: Active Protocol: Document 04/28/24 15:22 [facility] (Rec: 04/28/24 17:18 [facility] [id number]) OP Mobility Evaluation Transfers Sit to Stand slow and must use UEs; dec control OP Gait Assessment Comments Gait Comments dec stance time B w/ lat leaning; slow gait and dec push off B-evidence for imbalance Stair Climbing Evaluation Comments Stair Climbing Comments use of rail w/recip step up/ down; significantly dec control down PT-OP-K Range of Motion Start: 04/28/24 15:22 Freq: Status: Active Protocol: Document 05/28/24 14:35 [facility] (Rec: 05/28/24 18:11 [facility] [id number]) Shoulder Goniometric Range of Motion Shoulder L Flexion 71 r Flexion 68 PT-OP-M Strength Start: 04/28/24 15:22 Freq: Status: Active Protocol: Document 05/28/24 14:35 [facility] (Rec: 05/28/24 18:11 [facility] [id number]) Shoulder Strength Shoulder Manual Muscle Testing Right Flexion 2- Poor- Extension 3+ Fair+ Abduction (C5) 2- Poor- External Rotation 4- Good- Internal Rotation 4 Good Left Flexion 2- Poor- Extension 3+ Fair+ Abduction (C5) 2- Poor- External Rotation 4- Good- Internal Rotation 4 Good Elbow/Forearm Strength Elbow and Forearm Manual Muscle Testing Right Flexion (C6) 4 Good Extension (C7) 3+ Fair+ Left Flexion (C6) 4 Good Extension (C7) 3+ Fair+ Hip Strength Hip Manual Muscle Testing Right Flexion (L2) 3+ Fair+ External Rotation 3+ Fair+ Internal Rotation 3+ Fair+ Left Flexion (L2) 3+ Fair+ External Rotation 3+ Fair+ Internal Rotation 3+ Fair+ Knee Strength Knee Manual Muscle Testing Right Flexion (S2) 3+ Fair+ Extension (L3) 4- Good- Left Flexion (S2) 4- Good- Extension (L3) 4- Good- Ankle/Foot Strength Ankle and Foot Manual Muscle Testing Right Dorsiflexion (L4) 4 Good Plantarflexion (S1) 3+ Fair+ Left Dorsiflexion (L4) 4 Good Plantarflexion (S1) 3+ Fair+ Comments seated PF testing B PT-OP-Q Treatments Start: 04/28/24 15:22 Freq: Status: Active Protocol: Document 06/11/24 11:38 [facility] (Rec: 06/11/24 12:23 [facility] [id number]) Gym Equipment Shuttle Recovery Unilateral Squats Resistance 37# Reps/Time 20 ea Bilateral Squats Details full range Resistance (navy) 87# Shuttle Recovery Platform Stable Reps/Time 2x15 ea Shuttle Balance red clips Comments fwd and side: WBOS & NBOS fwd: staggered stance B Therapeutic Exercises Standing Exercises step ups Side bilateral Equipment Used 8 in step Reps/Minutes 5ea Comments to SL ER Standing Exercise Name shoulder ; HEP Side bilateral Equipment Used orange Reps/Minutes 15 squat Standing Exercise Name chair tap Side bilateral Reps/Minutes 10 Comments HEP push up Standing Exercise Name wall Side bilateral Reps/Minutes 12 Comments HEP flex Standing Exercise Name B Habd w/flex Side bilateral Equipment Used orange band Reps/Minutes 15 Comments HEP DF Standing Exercise Name back at wall Side bilateral Reps/Minutes 15 heel raises Standing Exercise Name SL Side bilateral Reps/Minutes 10 Comments HEP sidestep Standing Exercise Name sidestep Side bilateral Resistance orange band at ankles Reps/Minutes 20ft ea Comments HEP Neuro Re-Education Treatment Balance Activities dynamic balance Comments 1. backwards walk 2x50ft 2. EC walk 50ft 3. october walk 50ft hurdles Details hands above bars, CGA Equipment 6 hurdles Comments 1. fwd recip x8 (w/foam btwn) PT-OP-T Assessment and Plan Start: 04/28/24 15:22 Freq: Status: Active Protocol: Document 06/11/24 11:38 [facility] (Rec: 06/11/24 12:23 [facility] [id number]) Physical Therapy Assessment Goals ROM Short Term Goal (STG) Pt will be able to do B shoulder flex to at least 100 deg actively STG Duration achieved 06/09 Retirement Goal (LTG) Pt will be able to do B shoulder flex to at least 140 deg actively w/o inc pain to allow greater ease w/overhead tasks. 06/09-some discomfort w/ overhead ROM but can move overhead LTG Duration 07/21 activities Short Term Goal (STG) Pt will be able to tolerate biking 15 min a day w/o inc pain or significant fatigue for rest of day to show improved activity tolerance. 05/28-has been doing 5 min every now and then-feels okay. 06/09-10 min a day STG Duration 05/31 Biblical Languages Professor Goal (LTG) Pt will be able to resume walking daily about 1 mile w/o inc pain or feeling of unsteadiness or weakness 05/28-Has been able to do 4 blocks twice a day -increased some; did 1 mile walk 1x and felt okay-depends on day LTG Duration 07/21 strength Short Term Goal (STG) Pt will be indep w/HEP STG Duration achieved advancing as able Retirement Goal (LTG) Pt will score at least 4/5 on all UE and LE MMT B to show improved strength to allow greater ease of function 05/28-improving LTG Duration 07/21 DGI Impairment Short Term Goal (STG) Pt will improve DGI score to at least 17/24 to show improved balance and dec risk for falls. 05/28-16 STG Duration achieved 21 10/15 Retirement Goal (LTG) Pt will improve DGI score to at least 20/24 to show improved balance and low risk for falls. LTG Duration achieved 21 10/15 Assessment Summary Assessment Pt was challenged more by new HEP and is to start for strengthening with current progress. Improving balance overall Physical Therapy Plan Frequency and Duration Frequency of Treatment 2x/Week Duration of treatment (weeks) 12 Plan of Care Start Date 04/28/24 Plan of Care End Date 07/21/24 Next Visit Focus/Plan Next Note Type Treatment Note Next Visit Plan advance balance and strength as able check in on advanced HEP
--- NOTE | 2024-06-15 12:22 | PT.OTN ---
Current Diagnoses Other chronic pain (06/15/24) Spondylosis without myelopathy or radiculopathy, lumbar region (06/15/24) Other intervertebral disc degeneration, lumbar region (06/15/24) Cervicalgia (06/15/24) Low back pain, unspecified (06/15/24) Anesthesia of skin (06/15/24) Paresthesia of skin (06/15/24) Unsteadiness on feet (06/15/24) Other symptoms and signs involving the musculoskeletal system (06/15/24) Physical Therapy Treatment Note PT-OP-A Visit Information Start: 04/28/24 15:22 Freq: Status: Active Protocol: Document 06/15/24 09:39 [facility] (Rec: 06/15/24 12:21 [facility] [id number]) Out-Patient Physical Therapy Visit Information Visit Information Visit Type Treatment Note Visit Note 11/02 Visit Start Time 11:32 Visit Stop Time 12:16 Visit Number 12 Number of INSTRUMENT ENGINEER Visits 1 PT-OP-B Current Condition Start: 04/28/24 15:22 Freq: Status: Active Protocol: Document 04/28/24 15:22 [facility] (Rec: 04/28/24 17:18 [facility] [id number]) Current Condition History of Current Condition Onset Date about 2 months w/hx prior Current Complaints back pain, thoracic pain, body stiffness History of Current Condition Pt has had a lot of stress d/t past week having memory issues, and DIL having MCKEON and possible fluid in brain and dog being sick. Pt reports significant weakness in BUEs and LEs. Limited overhead B UE ROM. cervical, thoracic and lumbar MRIs looked okay except degenerative changes. MRI of head WNL. Pt reports last wed was really weak and legs collapse and she crumpled around garbage can and she couldn't straighten back up and had to lift her up . She has tingling for about 3 weeks where it was waking her up at night. It felt like pulsating from upper back into fingertips and all the way to toes. That has lessened some. Feel like trunk is going to be frozen. Has been not exercising but is exhausted. Did try the bike slowly and not for long and can do it. Has not been getting good sleep at night. Trying to keep busy since feels like if she stops, she will get too weak. Sometimes between shoulder blades and in lumbar area is painful. Pt had GI issues in spring and winter including nausesa but it is gone. Still having instances of voice change. She saw provider at w/spray up nose and throat. She has to go to GI doctor and has an appt Jun 10 along w/ May 26 Neurologist appt. Has a couple tests set for mid May. Pt walks dog 2x/day still but only 3 blocks and slowly and uses cane. Pt typically I w/o AD. Cane use inside most of the time now. Treatment Goals Patient/Caregiver Goals improve strength; back to exercising PT-OP-C Subjective Start: 04/28/24 15:22 Freq: Status: Active Protocol: Document 06/15/24 09:39 [facility] (Rec: 06/15/24 12:21 [facility] [id number]) OP-PT Subjective Patient Comments Patient Comments Patient reports strength is still a problem. Patient reports the advance HEP was a lot, but is OK with it. Patient reports she was a little sore post new HEP. PT-OP-E Functional Tests Start: 04/28/24 15:22 Freq: Status: Active Protocol: Document 05/28/24 14:35 [facility] (Rec: 05/28/24 18:11 [facility] [id number]) Functional Tests Dynamic Gait Index (DGI) Score PT-OP-F Manual Assessment Start: 04/28/24 15:22 Freq: Status: Active Protocol: Document 04/28/24 15:22 [facility] (Rec: 04/28/24 17:18 [facility] [id number]) Manual Assessments Other Manual Assessments Other Manual Assessments brachioradialis: R 0; L 1+; triceps 0 B; biceps 1+ B; knee ext & plantar flexion reflexes: L 1+; R 2+ PT-OP-G Mobility & Gait Start: 04/28/24 15:22 Freq: Status: Active Protocol: Document 04/28/24 15:22 [facility] (Rec: 04/28/24 17:18 [facility] [id number]) OP Mobility Evaluation Transfers Sit to Stand slow and must use UEs; dec control OP Gait Assessment Comments Gait Comments dec stance time B w/ lat leaning; slow gait and dec push off B-evidence for imbalance Stair Climbing Evaluation Comments Stair Climbing Comments use of rail w/recip step up/ down; significantly dec control down PT-OP-K Range of Motion Start: 04/28/24 15:22 Freq: Status: Active Protocol: Document 05/28/24 14:35 [facility] (Rec: 05/28/24 18:11 [facility] [id number]) Shoulder Goniometric Range of Motion Shoulder L Flexion 71 r Flexion 68 PT-OP-M Strength Start: 04/28/24 15:22 Freq: Status: Active Protocol: Document 05/28/24 14:35 [facility] (Rec: 05/28/24 18:11 [facility] [id number]) Shoulder Strength Shoulder Manual Muscle Testing Right Flexion 2- Poor- Extension 3+ Fair+ Abduction (C5) 2- Poor- External Rotation 4- Good- Internal Rotation 4 Good Left Flexion 2- Poor- Extension 3+ Fair+ Abduction (C5) 2- Poor- External Rotation 4- Good- Internal Rotation 4 Good Elbow/Forearm Strength Elbow and Forearm Manual Muscle Testing Right Flexion (C6) 4 Good Extension (C7) 3+ Fair+ Left Flexion (C6) 4 Good Extension (C7) 3+ Fair+ Hip Strength Hip Manual Muscle Testing Right Flexion (L2) 3+ Fair+ External Rotation 3+ Fair+ Internal Rotation 3+ Fair+ Left Flexion (L2) 3+ Fair+ External Rotation 3+ Fair+ Internal Rotation 3+ Fair+ Knee Strength Knee Manual Muscle Testing Right Flexion (S2) 3+ Fair+ Extension (L3) 4- Good- Left Flexion (S2) 4- Good- Extension (L3) 4- Good- Ankle/Foot Strength Ankle and Foot Manual Muscle Testing Right Dorsiflexion (L4) 4 Good Plantarflexion (S1) 3+ Fair+ Left Dorsiflexion (L4) 4 Good Plantarflexion (S1) 3+ Fair+ Comments seated PF testing B PT-OP-Q Treatments Start: 04/28/24 15:22 Freq: Status: Active Protocol: Document 06/15/24 09:39 [facility] (Rec: 06/15/24 12:21 [facility] [id number]) Gym Equipment Shuttle Recovery Unilateral Squats Details full range Shuttle Recovery Platform Stable Reps/Time 20 ea Bilateral Squats Details full range Resistance 62# navy initiated with 87# unable Reps/Time 2x15 ea Shuttle Balance red clips Comments NBOS and stagger, CGA with visual scanning and head turns Sport Cord green Exercise Details forward, bkwd, lat Cord/Resistance green Reps/Duration X5 each direction Comments CGA Therapeutic Exercises Sitting Exercises clamshell Sitting Exercise Name HEP Side bilateral Resistance Tb X4 at thighs latex free Reps/Minutes X10 without hold and one one min hold Standing Exercises squat Standing Exercise Name chair tap Side bilateral Resistance level 4 latex free band Reps/Minutes 10 x2 Comments HEPblue band above knees to HEP sidestep Standing Exercise Name sidestep Side bilateral Resistance level 4 royal blue Reps/Minutes 10 feet X 2 each direction Comments HEP Neuro Re-Education Treatment Balance Activities mat with objects under Reps/Duration X6 CGA hurdles Details hands above bars, CGA Equipment 5 hurdles with therapads Comments 1. fwd recip x8 (w/foam btwn) PT-OP-T Assessment and Plan Start: 04/28/24 15:22 Freq: Status: Active Protocol: Document 06/15/24 09:39 [facility] (Rec: 06/15/24 12:21 [facility] [id number]) Physical Therapy Assessment Goals ROM Short Term Goal (STG) Pt will be able to do B shoulder flex to at least 100 deg actively STG Duration achieved 06/09 [facility] Goal (LTG) Pt will be able to do B shoulder flex to at least 140 deg actively w/o inc pain to allow greater ease w/overhead tasks. 06/09-some discomfort w/ overhead ROM but can move overhead LTG Duration 07/21 activities Short Term Goal (STG) Pt will be able to tolerate biking 15 min a day w/o inc pain or significant fatigue for rest of day to show improved activity tolerance. 05/28-has been doing 5 min every now and then-feels okay. 06/09-10 min a day STG Duration 05/31 [facility] Goal (LTG) Pt will be able to resume walking daily about 1 mile w/o inc pain or feeling of unsteadiness or weakness 05/28-Has been able to do 4 blocks twice a day -increased some; did 1 mile walk 1x and felt okay-depends on day LTG Duration 07/21 strength Short Term Goal (STG) Pt will be indep w/HEP STG Duration achieved advancing as able Emergency Vehicle Driver Goal (LTG) Pt will score at least 4/5 on all UE and LE MMT B to show improved strength to allow greater ease of function 05/28-improving LTG Duration 07/21 DGI Impairment Short Term Goal (STG) Pt will improve DGI score to at least 17/24 to show improved balance and dec risk for falls. 05/28-16 STG Duration achieved 21 06/09 Emergency Vehicle Driver Goal (LTG) Pt will improve DGI score to at least 20/24 to show improved balance and low risk for falls. LTG Duration achieved 21 06/09 Assessment Summary Assessment Progressed to level 4 bands for HEP and seated hip abduction. Patient reports her only pain is from her vaccinations. Physical Therapy Plan Frequency and Duration Frequency of Treatment 2x/Week Duration of treatment (weeks) 12 Plan of Care Start Date 04/28/24 Plan of Care End Date 07/21/24 Next Visit Focus/Plan Next Note Type Treatment Note Next Visit Plan advance balance and strength as able
--- NOTE | 2024-06-18 12:25 | PT.OTN ---
Current Diagnoses Other chronic pain (06/18/24) Spondylosis without myelopathy or radiculopathy, lumbar region (06/18/24) Other intervertebral disc degeneration, lumbar region (06/18/24) Cervicalgia (06/18/24) Low back pain, unspecified (06/18/24) Anesthesia of skin (06/18/24) Paresthesia of skin (06/18/24) Unsteadiness on feet (06/18/24) Other symptoms and signs involving the musculoskeletal system (06/18/24) Physical Therapy Treatment Note PT-OP-A Visit Information Start: 04/28/24 15:22 Freq: Status: Active Protocol: Document 06/18/24 10:48 AB (Rec: 06/18/24 12:25 AB [id number]) Out-Patient Physical Therapy Visit Information Visit Information Visit Type Treatment Note Visit Note 12/03 Visit Start Time 11:33 Visit Stop Time 12:20 Visit Number 13 Number of COMMUNITY MIDWIFE Visits 2 PT-OP-B Current Condition Start: 04/28/24 15:22 Freq: Status: Active Protocol: Document 04/28/24 15:22 [facility] (Rec: 04/28/24 17:18 [facility] [id number]) Current Condition History of Current Condition Onset Date about 2 months w/hx prior Current Complaints back pain, thoracic pain, body stiffness History of Current Condition Pt has had a lot of stress d/t past week having memory issues, and DIL having MCKEON and possible fluid in brain and dog being sick. Pt reports significant weakness in BUEs and LEs. Limited overhead B UE ROM. cervical, thoracic and lumbar MRIs looked okay except degenerative changes. MRI of head WNL. Pt reports last wed was really weak and legs collapse and she crumpled around garbage can and she couldn't straighten back up and had to lift her up . She has tingling for about 3 weeks where it was waking her up at night. It felt like pulsating from upper back into fingertips and all the way to toes. That has lessened some. Feel like trunk is going to be frozen. Has been not exercising but is exhausted. Did try the bike slowly and not for long and can do it. Has not been getting good sleep at night. Trying to keep busy since feels like if she stops, she will get too weak. Sometimes between shoulder blades and in lumbar area is painful. Pt had GI issues in spring and winter including nausesa but it is gone. Still having instances of voice change. She saw provider at w/spray up nose and throat. She has to go to GI doctor and has an appt Jun 10 along w/ May 26 Neurologist appt. Has a couple tests set for mid May. Pt walks dog 2x/day still but only 3 blocks and slowly and uses cane. Pt typically I w/o AD. Cane use inside most of the time now. Treatment Goals Patient/Caregiver Goals improve strength; back to exercising PT-OP-C Subjective Start: 04/28/24 15:22 Freq: Status: Active Protocol: Document 06/18/24 10:48 AB (Rec: 06/18/24 12:25 AB [id number]) OP-PT Subjective Patient Comments Patient Comments Patient reports she increased the resistance on her bike and rode it 20 min and was a little sore. Patient transfers sit to stand with UE use right knee extended. SLS 15+ seconds left and right LE, able to hold with head turns, visual scanning limited on left with patient comments she is fatigued. PT-OP-E Functional Tests Start: 04/28/24 15:22 Freq: Status: Active Protocol: Document 05/28/24 14:35 [facility] (Rec: 05/28/24 18:11 [facility] [id number]) Functional Tests Dynamic Gait Index (DGI) Score 16 PT-OP-F Manual Assessment Start: 04/28/24 15:22 Freq: Status: Active Protocol: Document 04/28/24 15:22 [facility] (Rec: 04/28/24 17:18 [facility] [id number]) Manual Assessments Other Manual Assessments Other Manual Assessments brachioradialis: R 0; L 1+; triceps 0 B; biceps 1+ B; knee ext & plantar flexion reflexes: L 1+; R 2+ PT-OP-G Mobility & Gait Start: 04/28/24 15:22 Freq: Status: Active Protocol: Document 04/28/24 15:22 [facility] (Rec: 04/28/24 17:18 [facility] [id number]) OP Mobility Evaluation Transfers Sit to Stand slow and must use UEs; dec control OP Gait Assessment Comments Gait Comments dec stance time B w/ lat leaning; slow gait and dec push off B-evidence for imbalance Stair Climbing Evaluation Comments Stair Climbing Comments use of rail w/recip step up/ down; significantly dec control down PT-OP-K Range of Motion Start: 04/28/24 15:22 Freq: Status: Active Protocol: Document 05/28/24 14:35 [facility] (Rec: 05/28/24 18:11 [facility] [id number]) Shoulder Goniometric Range of Motion Shoulder L Flexion 71 r Flexion 68 PT-OP-M Strength Start: 04/28/24 15:22 Freq: Status: Active Protocol: Document 05/28/24 14:35 [facility] (Rec: 05/28/24 18:11 [facility] [id number]) Shoulder Strength Shoulder Manual Muscle Testing Right Flexion 2- Poor- Extension 3+ Fair+ Abduction (C5) 2- Poor- External Rotation 4- Good- Internal Rotation 4 Good Left Flexion 2- Poor- Extension 3+ Fair+ Abduction (C5) 2- Poor- External Rotation 4- Good- Internal Rotation 4 Good Elbow/Forearm Strength Elbow and Forearm Manual Muscle Testing Right Flexion (C6) 4 Good Extension (C7) 3+ Fair+ Left Flexion (C6) 4 Good Extension (C7) 3+ Fair+ Hip Strength Hip Manual Muscle Testing Right Flexion (L2) 3+ Fair+ External Rotation 3+ Fair+ Internal Rotation 3+ Fair+ Left Flexion (L2) 3+ Fair+ External Rotation 3+ Fair+ Internal Rotation 3+ Fair+ Knee Strength Knee Manual Muscle Testing Right Flexion (S2) 3+ Fair+ Extension (L3) 4- Good- Left Flexion (S2) 4- Good- Extension (L3) 4- Good- Ankle/Foot Strength Ankle and Foot Manual Muscle Testing Right Dorsiflexion (L4) 4 Good Plantarflexion (S1) 3+ Fair+ Left Dorsiflexion (L4) 4 Good Plantarflexion (S1) 3+ Fair+ Comments seated PF testing B PT-OP-Q Treatments Start: 04/28/24 15:22 Freq: Status: Active Protocol: Document 06/18/24 10:48 AB (Rec: 06/18/24 12:25 AB [id number]) Therapeutic Exercises Sitting Exercises side sit to upright Sitting Exercise Name HEP Side bilateral Reps/Minutes X10 Comments Verbal, visual and tactile cues Sit<>stand Reps/Minutes X3 X 2 Comments Patient ed importance of not extending right knee with sit to stand clamshell Sitting Exercise Name HEP Side bilateral Resistance Tb X4 at thighs latex free Reps/Minutes X15 without hold and one one min hold Standing Exercises step ups Side bilateral Equipment Used 8 in step Reps/Minutes 5ea Comments to SL push up Standing Exercise Name wall Side bilateral Reps/Minutes 12 Comments HEP Wall slide Side bilateral Resistance level one band second trial Reps/Minutes X3 and X 3 Comments 2/10 pain right shoulder post, both a little during mved Neuro Re-Education Treatment Balance Activities Bosu Details 1. round side step up SL with and without UE use Reps/Duration X5 each LE CGA dynamic balance Comments 1. backwards walk 2x20ft 2. EC walk 20ft 3. stop and turn when walking 4. slow walk, fast walk 5 walk with head turns step up taps Details on foam to 6 inch step Reps/Duration X12 Comments hands above bars CGA tandem Details CGA hands above bars Reps/Duration 10 feet X 6 X5 retro hurdles Details hands above bars, close supervision Equipment 10 feet X 6 PT-OP-T Assessment and Plan Start: 04/28/24 15:22 Freq: Status: Active Protocol: Document 06/18/24 10:48 AB (Rec: 06/18/24 12:25 AB [id number]) Physical Therapy Assessment Goals ROM Short Term Goal (STG) Pt will be able to do B shoulder flex to at least 100 deg actively STG Duration achieved 06/09 Acid Cleaner Goal (LTG) Pt will be able to do B shoulder flex to at least 140 deg actively w/o inc pain to allow greater ease w/overhead tasks. 06/09-some discomfort w/ overhead ROM but can move overhead LTG Duration 07/21 activities Short Term Goal (STG) Pt will be able to tolerate biking 15 min a day w/o inc pain or significant fatigue for rest of day to show improved activity tolerance. 05/28-has been doing 5 min every now and then-feels okay. 06/09-10 min a day STG Duration 05/31 Retirement Goal (LTG) Pt will be able to resume walking daily about 1 mile w/o inc pain or feeling of unsteadiness or weakness 05/28-Has been able to do 4 blocks twice a day -increased some; did 1 mile walk 1x and felt okay-depends on day LTG Duration 07/21 strength Short Term Goal (STG) Pt will be indep w/HEP STG Duration achieved advancing as able Retirement Goal (LTG) Pt will score at least 4/5 on all UE and LE MMT B to show improved strength to allow greater ease of function 05/28-improving LTG Duration 07/21 DGI Impairment 14 Short Term Goal (STG) Pt will improve DGI score to at least 17/24 to show improved balance and dec risk for falls. 05/28-16 STG Duration achieved 21 06/09 Retirement Goal (LTG) Pt will improve DGI score to at least 20/24 to show improved balance and low risk for falls. LTG Duration achieved 21 06/09 Assessment Summary Assessment Progression of wall slide limited by shoulder pain right > left. Good desmond to balance exercises. Physical Therapy Plan Frequency and Duration Frequency of Treatment 2x/Week Duration of treatment (weeks) 12 Plan of Care Start Date 04/28/24 Plan of Care End Date 07/21/24 Next Visit Focus/Plan Next Note Type Treatment Note Next Visit Plan advance balance and strength as able mini band in supine trial next session ER with flexion
--- NOTE | 2024-06-22 12:32 | PT.OTN ---
Current Diagnoses Other chronic pain (06/22/24) Spondylosis without myelopathy or radiculopathy, lumbar region (06/22/24) Other intervertebral disc degeneration, lumbar region (06/22/24) Cervicalgia (06/22/24) Low back pain, unspecified (06/22/24) Anesthesia of skin (06/22/24) Paresthesia of skin (06/22/24) Unsteadiness on feet (06/22/24) Other symptoms and signs involving the musculoskeletal system (06/22/24) Physical Therapy Treatment Note PT-OP-A Visit Information Start: 04/28/24 15:22 Freq: Status: Active Protocol: Document 06/22/24 11:44 [facility] (Rec: 06/22/24 12:32 [facility] [id number]) Out-Patient Physical Therapy Visit Information Visit Information Visit Type Treatment Note Visit Note 01/02 Visit Start Time 11:36 Visit Stop Time 12:15 Visit Number 14 Number of EDUCATION ASSISTANT Visits 0 PT-OP-B Current Condition Start: 04/28/24 15:22 Freq: Status: Active Protocol: Document 04/28/24 15:22 [facility] (Rec: 04/28/24 17:18 [facility] [id number]) Current Condition History of Current Condition Onset Date about 2 months w/hx prior Current Complaints back pain, thoracic pain, body stiffness History of Current Condition Pt has had a lot of stress d/t past week having memory issues, and DIL having MCKEON and possible fluid in brain and dog being sick. Pt reports significant weakness in BUEs and LEs. Limited overhead B UE ROM. cervical, thoracic and lumbar MRIs looked okay except degenerative changes. MRI of head WNL. Pt reports last wed was really weak and legs collapse and she crumpled around garbage can and she couldn't straighten back up and had to lift her up . She has tingling for about 3 weeks where it was waking her up at night. It felt like pulsating from upper back into fingertips and all the way to toes. That has lessened some. Feel like trunk is going to be frozen. Has been not exercising but is exhausted. Did try the bike slowly and not for long and can do it. Has not been getting good sleep at night. Trying to keep busy since feels like if she stops, she will get too weak. Sometimes between shoulder blades and in lumbar area is painful. Pt had GI issues in spring and winter including nausesa but it is gone. Still having instances of voice change. She saw provider at w/spray up nose and throat. She has to go to GI doctor and has an appt Jun 10 along w/ May 26 Neurologist appt. Has a couple tests set for mid May. Pt walks dog 2x/day still but only 3 blocks and slowly and uses cane. Pt typically I w/o AD. Cane use inside most of the time now. Treatment Goals Patient/Caregiver Goals improve strength; back to exercising PT-OP-C Subjective Start: 04/28/24 15:22 Freq: Status: Active Protocol: Document 06/22/24 11:44 [facility] (Rec: 06/22/24 12:32 [facility] [id number]) OP-PT Subjective Patient Comments Patient Comments Pt reports midback is sore the past 3 days but unsure why PT-OP-E Functional Tests Start: 04/28/24 15:22 Freq: Status: Active Protocol: Document 05/28/24 14:35 [facility] (Rec: 05/28/24 18:11 [facility] [id number]) Functional Tests Dynamic Gait Index (DGI) Score PT-OP-F Manual Assessment Start: 04/28/24 15:22 Freq: Status: Active Protocol: Document 04/28/24 15:22 [facility] (Rec: 04/28/24 17:18 [facility] [id number]) Manual Assessments Other Manual Assessments Other Manual Assessments brachioradialis: R 0; L 1+; triceps 0 B; biceps 1+ B; knee ext & plantar flexion reflexes: L 1+; R 2+ PT-OP-G Mobility & Gait Start: 04/28/24 15:22 Freq: Status: Active Protocol: Document 04/28/24 15:22 [facility] (Rec: 04/28/24 17:18 [facility] [id number]) OP Mobility Evaluation Transfers Sit to Stand slow and must use UEs; dec control OP Gait Assessment Comments Gait Comments dec stance time B w/ lat leaning; slow gait and dec push off B-evidence for imbalance Stair Climbing Evaluation Comments Stair Climbing Comments use of rail w/recip step up/ down; significantly dec control down PT-OP-K Range of Motion Start: 04/28/24 15:22 Freq: Status: Active Protocol: Document 05/28/24 14:35 [facility] (Rec: 05/28/24 18:11 [facility] [id number]) Shoulder Goniometric Range of Motion Shoulder L Flexion 71 r Flexion 68 PT-OP-M Strength Start: 04/28/24 15:22 Freq: Status: Active Protocol: Document 05/28/24 14:35 [facility] (Rec: 05/28/24 18:11 [facility] [id number]) Shoulder Strength Shoulder Manual Muscle Testing Right Flexion 2- Poor- Extension 3+ Fair+ Abduction (C5) 2- Poor- External Rotation 4- Good- Internal Rotation 4 Good Left Flexion 2- Poor- Extension 3+ Fair+ Abduction (C5) 2- Poor- External Rotation 4- Good- Internal Rotation 4 Good Elbow/Forearm Strength Elbow and Forearm Manual Muscle Testing Right Flexion (C6) 4 Good Extension (C7) 3+ Fair+ Left Flexion (C6) 4 Good Extension (C7) 3+ Fair+ Hip Strength Hip Manual Muscle Testing Right Flexion (L2) 3+ Fair+ External Rotation 3+ Fair+ Internal Rotation 3+ Fair+ Left Flexion (L2) 3+ Fair+ External Rotation 3+ Fair+ Internal Rotation 3+ Fair+ Knee Strength Knee Manual Muscle Testing Right Flexion (S2) 3+ Fair+ Extension (L3) 4- Good- Left Flexion (S2) 4- Good- Extension (L3) 4- Good- Ankle/Foot Strength Ankle and Foot Manual Muscle Testing Right Dorsiflexion (L4) 4 Good Plantarflexion (S1) 3+ Fair+ Left Dorsiflexion (L4) 4 Good Plantarflexion (S1) 3+ Fair+ Comments seated PF testing B PT-OP-Q Treatments Start: 04/28/24 15:22 Freq: Status: Active Protocol: Document 06/22/24 11:44 [facility] (Rec: 06/22/24 12:32 [facility] [id number]) Gym Equipment Shuttle Recovery Unilateral Squats Details full range Resistance 37# Reps/Time 15 B Bilateral Squats Resistance 75# ([employer]) Reps/Time 20 Therapeutic Exercises Sidelying Exercises open book Side bilateral Reps/Minutes 10 ea Standing Exercises paloff press Standing Exercise Name press w/rot Side bilateral Reps/Minutes 6 Manual Therapy Treatment Consent Patient gave verbal consent for manual Yes treatment Soft Tissue Mobilization spine Body Location R>L thoracic paraspinal Mobilization Type Rolling,Strumming,Sustained Pressure Intensity/Depth Moderate Comments s/l and sit Joint Mobilizations thoracic Grade II Body Position Sitting Comments transverse glide T6-8 L c/r ribs Comments external torsion R rib 6-8 PT-OP-T Assessment and Plan Start: 04/28/24 15:22 Freq: Status: Active Protocol: Document 06/22/24 11:44 [facility] (Rec: 06/22/24 12:32 [facility] [id number]) Physical Therapy Assessment Goals ROM Short Term Goal (STG) Pt will be able to do B shoulder flex to at least 100 deg actively STG Duration achieved 06/09 Director Of Services Goal (LTG) Pt will be able to do B shoulder flex to at least 140 deg actively w/o inc pain to allow greater ease w/overhead tasks. 06/09-some discomfort w/ overhead ROM but can move overhead LTG Duration 07/21 activities Short Term Goal (STG) Pt will be able to tolerate biking 15 min a day w/o inc pain or significant fatigue for rest of day to show improved activity tolerance. 05/28-has been doing 5 min every now and then-feels okay. 06/09-10 min a day STG Duration 05/31 Director Of Services Goal (LTG) Pt will be able to resume walking daily about 1 mile w/o inc pain or feeling of unsteadiness or weakness 05/28-Has been able to do 4 blocks twice a day -increased some; did 1 mile walk 1x and felt okay-depends on day LTG Duration 07/21 strength Short Term Goal (STG) Pt will be indep w/HEP STG Duration achieved advancing as able Director Of Services Goal (LTG) Pt will score at least 4/5 on all UE and LE MMT B to show improved strength to allow greater ease of function 05/28-improving LTG Duration 07/21 DGI Impairment Short Term Goal (STG) Pt will improve DGI score to at least 17/24 to show improved balance and dec risk for falls. 05/28-16 STG Duration achieved 21 06/09 [facility] Goal (LTG) Pt will improve DGI score to at least 20/24 to show improved balance and low risk for falls. LTG Duration achieved 21 06/09 Assessment Summary Assessment Pt had improved R rot after manual but had signficiant thoracic tension today. Pt noting inc ankle weakness today and had less push off on RLE w/dec ability today to do SL heel raises on that side. Pt encouraged to tell neurologist if cont to feel like losing strength Physical Therapy Plan Frequency and Duration Frequency of Treatment 2x/Week Duration of treatment (weeks) 12 Plan of Care Start Date 04/28/24 Plan of Care End Date 07/21/24 Next Visit Focus/Plan Next Note Type Treatment Note Next Visit Plan advance balance and strength as able
--- NOTE | 2024-07-02 10:31 | PT.OTN ---
Current Diagnoses Other chronic pain (07/02/24) Spondylosis without myelopathy or radiculopathy, lumbar region (07/02/24) Other intervertebral disc degeneration, lumbar region (07/02/24) Cervicalgia (07/02/24) Low back pain, unspecified (07/02/24) Anesthesia of skin (07/02/24) Paresthesia of skin (07/02/24) Unsteadiness on feet (07/02/24) Other symptoms and signs involving the musculoskeletal system (07/02/24) Physical Therapy Treatment Note PT-OP-A Visit Information Start: 04/28/24 15:22 Freq: Status: Active Protocol: Document 07/02/24 09:51 SP (Rec: 07/02/24 10:48 SP [id number]) Out-Patient Physical Therapy Visit Information Visit Information Visit Type Treatment Note Visit Start Time 09:51 Visit Stop Time 10:31 Visit Number 15 (02/02 with last PN) 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 Pt reports significant weakness in BUEs and LEs. Limited overhead B UE ROM. cervical, thoracic and lumbar MRIs looked okay except degenerative changes. MRI of head WNL. Pt reports last wed was really weak and legs collapse and she crumpled around garbage can and she couldn't straighten back up and had to lift her up . She has tingling for about 3 weeks where it was waking her up at night. It felt like pulsating from upper back into fingertips and all the way to toes. That has lessened some. Feel like trunk is going to be frozen. Has been not exercising but is exhausted. Did try the bike slowly and not for long and can do it. Has not been getting good sleep at night. Trying to keep busy since feels like if she stops, she will get too weak. Sometimes between shoulder blades and in lumbar area is painful. Pt had GI issues in spring and winter including nausesa but it is gone. Still having instances of voice change. She saw provider at w/spray up nose and throat. She has to go to GI doctor and has an appt Jun 10 along w/ May 26 Neurologist appt. Has a couple tests set for mid May. Pt walks dog 2x/day still but only 3 blocks and slowly and uses cane. Pt typically I w/o AD. Cane use inside most of the time now. Treatment Goals Patient/Caregiver Goals improve strength; back to exercising PT-OP-C Subjective Start: 04/28/24 15:22 Freq: Status: Active Protocol: Document 07/02/24 09:51 SP (Rec: 07/02/24 10:48 SP [id number]) OP-PT Subjective Patient Comments Patient Comments Pt reports her R ankle bothering her inferior lateral malleolus and not sure why and hasn't before. Back is better. [employer] with ex that can if not having to put much strain in R ankle. Might call her physician. PT-OP-E Functional Tests Start: 04/28/24 15:22 Freq: Status: Active Protocol: Document 05/28/24 14:35 [facility] (Rec: 05/28/24 18:11 [facility] [id number]) Functional Tests Dynamic Gait Index (DGI) Score PT-OP-F Manual Assessment Start: 04/28/24 15:22 Freq: Status: Active Protocol: Document 04/28/24 15:22 [facility] (Rec: 04/28/24 17:18 [facility] [id number]) Manual Assessments Other Manual Assessments Other Manual Assessments brachioradialis: R 0; L 1+; triceps 0 B; biceps 1+ B; knee ext & plantar flexion reflexes: L 1+; R 2+ PT-OP-G Mobility & Gait Start: 04/28/24 15:22 Freq: Status: Active Protocol: Document 04/28/24 15:22 [facility] (Rec: 04/28/24 17:18 [facility] [id number]) OP Mobility Evaluation Transfers Sit to Stand slow and must use UEs; dec control OP Gait Assessment Comments Gait Comments dec stance time B w/ lat leaning; slow gait and dec push off B-evidence for imbalance Stair Climbing Evaluation Comments Stair Climbing Comments use of rail w/recip step up/ down; significantly dec control down PT-OP-K Range of Motion Start: 04/28/24 15:22 Freq: Status: Active Protocol: Document 07/02/24 09:51 SP (Rec: 07/02/24 10:48 SP [id number]) Shoulder Goniometric Range of Motion Shoulder L Shoulder ROM WFL Yes Testing Position Supine Flexion 180 Comments seated and supine 180 deg AROM light tension end range but no painful supine r Shoulder ROM WFL Yes Testing Position Supine Flexion 180 Comments seated and supine 170 deg discomfort FF seated but can do full range PT-OP-M Strength Start: 04/28/24 15:22 Freq: Status: Active Protocol: Document 05/28/24 14:35 [facility] (Rec: 05/28/24 18:11 [facility] [id number]) Shoulder Strength Shoulder Manual Muscle Testing Right Flexion 2- Poor- Extension 3+ Fair+ Abduction (C5) 2- Poor- External Rotation 4- Good- Internal Rotation 4 Good Left Flexion 2- Poor- Extension 3+ Fair+ Abduction (C5) 2- Poor- External Rotation 4- Good- Internal Rotation 4 Good Elbow/Forearm Strength Elbow and Forearm Manual Muscle Testing Right Flexion (C6) 4 Good Extension (C7) 3+ Fair+ Left Flexion (C6) 4 Good Extension (C7) 3+ Fair+ Hip Strength Hip Manual Muscle Testing Right Flexion (L2) 3+ Fair+ External Rotation 3+ Fair+ Internal Rotation 3+ Fair+ Left Flexion (L2) 3+ Fair+ External Rotation 3+ Fair+ Internal Rotation 3+ Fair+ Knee Strength Knee Manual Muscle Testing Right Flexion (S2) 3+ Fair+ Extension (L3) 4- Good- Left Flexion (S2) 4- Good- Extension (L3) 4- Good- Ankle/Foot Strength Ankle and Foot Manual Muscle Testing Right Dorsiflexion (L4) 4 Good Plantarflexion (S1) 3+ Fair+ Left Dorsiflexion (L4) 4 Good Plantarflexion (S1) 3+ Fair+ Comments seated PF testing B PT-OP-Q Treatments Start: 04/28/24 15:22 Freq: Status: Active Protocol: Document 07/02/24 09:51 SP (Rec: 07/02/24 10:48 SP [id number]) Therapeutic Exercises Sidelying Exercises hip abduction Sidelying Exercise Name trialed in PT for LE strengthening support balance Side bilateral Resistance AROM Equipment Used top arm on table for sidelying support Reps/Minutes x15 Comments weaker on R, cued TA, slower pacing for stabiltiy open book Side bilateral Resistance AROM Reps/Minutes 10 ea, 2 reps hold 3 breath for rib mobility Comments little anterior L shld discomfort end feel- tactile ribcage rotation Sitting Exercises Sit<>stand Equipment Used foam, 18 table no UE Reps/Minutes x8 reps before R ankle started hurting Comments Patient ed importance of not extending right knee with sit to stand Manual Therapy Treatment Consent Patient gave verbal consent for manual Yes treatment Soft Tissue Mobilization L shld Body Location L distal infraspinatus, mid and posterior deltoid Mobilization Type Rolling Intensity/Depth light Body Position R SL Comments monitored for pain with pressure support open book. R lower leg Body Location R peroneal Mobilization Type Rolling Intensity/Depth light Body Position seated Comments gentle mid to distal tendon superior lateral malleolus spine Body Location R>L thoracic paraspinal Mobilization Type Rolling,Strumming,Sustained Pressure,Other Intensity/Depth Moderate Comments s/l and light pressure MWM R open book PT-OP-T Assessment and Plan Start: 04/28/24 15:22 Freq: Status: Active Protocol: Document 07/02/24 09:51 SP (Rec: 07/02/24 10:48 SP [id number]) Physical Therapy Assessment Goals ROM Short Term Goal (STG) Pt will be able to do B shoulder flex to at least 100 deg actively STG Duration achieved 06/09 Clinical Courier Goal (LTG) Pt will be able to do B shoulder flex to at least 140 deg actively w/o inc pain to allow greater ease w/overhead tasks. 06/09-some discomfort w/ overhead ROM but can move overhead 07/02/24: MET GOAL: BUE 180 deg AROM with little tension on L shld supine and R shld seated at end feel but not pain. LTG Duration 07/21 GOAL MET 07/02/24 activities Short Term Goal (STG) Pt will be able to tolerate biking 15 min a day w/o inc pain or significant fatigue for rest of day to show improved activity tolerance. 05/28-has been doing 5 min every now and then-feels okay. 06/09-10 min a day 07/02/24: able to ride stationary bike before went out of town for 15-20 min with no pain but hasn't tried since back. STG Duration 05/31 progressing 07/02/24 Clinical Courier Goal (LTG) Pt will be able to resume walking daily about 1 mile w/o inc pain or feeling of unsteadiness or weakness 05/28-Has been able to do 4 blocks twice a day -increased some; did 1 mile walk 1x and felt okay-depends on day 07/02/24 was walking about 15- 20 min with no back pain but having R ankle pain. LTG Duration 07/21 progressing 07/02/24 strength Short Term Goal (STG) Pt will be indep w/HEP STG Duration achieved advancing as able Clinical Courier Goal (LTG) Pt will score at least 4/5 on all UE and LE MMT B to show improved strength to allow greater ease of function 05/28-improving 07/02/24 added side hip abd and segmental bridging for core and LE strengthening support balance and mobility. LTG Duration 07/21 progressing 07/02/24 DGI Impairment 1424 Short Term Goal (STG) Pt will improve DGI score to at least 17/24 to show improved balance and dec risk for falls. 05/28-16 STG Duration achieved 21 1015 Mcc Goal (LTG) Pt will improve DGI score to at least 20/24 to show improved balance and low risk for falls. LTG Duration achieved 21 10/15 Progress Towards Goals Progress Comments MET ROM BUEs 180 deg AROM, slight tenison L end feel pnfree. Assessment Summary Assessment Pt making gains with B shld AROM supine and seated against gravity, tension into end range but not pain. Limited with standing WB activities today due to R ankle pain inferior lateral malleolus and unsure why, gentle STMs not provide significant improvements. Reports good muscle effort with no pain added hip abd and bridging for strength non weight bearing to still do activity progression, provided HOs for set up/recall. Physical Therapy Plan Frequency and Duration Frequency of Treatment 2x/Week Duration of treatment (weeks) 12 Plan of Care Start Date 04/28/24 Plan of Care End Date 07/21/24 Therapeutic Interventions Therapeutic Interventions Balance Training,Canalithic Repositioning,Coordination Training,Gait Training,Home Exercise Program,Joint Mobilizations,Manual Therapy, Neuromuscular Re-education, Patient/Caregiver Education, Self-Care/Home Management,Soft Tissue Mobilization,Taping, Therapeutic Activities, Therapeutic Exercises, Vestibular Rehabilitation Modalities Cold Pack/Ice Massage,Electric Stimulation,Hot Packs Other Referrals/Consults Referrals/Consults Recommended Discussed with pt calling physician to have R lateral ankle assessed for pain having weightbearing activities. Next Visit Focus/Plan Next Note Type Treatment Note Next Visit Plan rechck R ankle if saw , recheck side abd and bridging added. POC: advance balance and strength as able
--- NOTE | 2024-07-07 16:13 | PT.OTN ---
Current Diagnoses Other chronic pain (07/07/24) Spondylosis without myelopathy or radiculopathy, lumbar region (07/07/24) Other intervertebral disc degeneration, lumbar region (07/07/24) Cervicalgia (07/07/24) Low back pain, unspecified (07/07/24) Anesthesia of skin (07/07/24) Paresthesia of skin (07/07/24) Unsteadiness on feet (07/07/24) Other symptoms and signs involving the musculoskeletal system (07/07/24) Physical Therapy Treatment Note PT-OP-A Visit Information Start: 04/28/24 15:22 Freq: Status: Active Protocol: Document 07/07/24 14:37 [facility] (Rec: 07/07/24 15:21 [facility] [id number]) Out-Patient Physical Therapy Visit Information Visit Information Visit Type Progress Note Visit Start Time 14:36 Visit Stop Time 15:15 Visit Number 16 (09/04 with last PN) 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 Pt reports significant weakness in BUEs and LEs. Limited overhead B UE ROM. cervical, thoracic and lumbar MRIs looked okay except degenerative changes. MRI of head WNL. Pt reports last wed was really weak and legs collapse and she crumpled around garbage can and she couldn't straighten back up and had to lift her up . She has tingling for about 3 weeks where it was waking her up at night. It felt like pulsating from upper back into fingertips and all the way to toes. That has lessened some. Feel like trunk is going to be frozen. Has been not exercising but is exhausted. Did try the bike slowly and not for long and can do it. Has not been getting good sleep at night. Trying to keep busy since feels like if she stops, she will get too weak. Sometimes between shoulder blades and in lumbar area is painful. Pt had GI issues in spring and winter including nausesa but it is gone. Still having instances of voice change. She saw provider at w/spray up nose and throat. She has to go to GI doctor and has an appt Jun 10 along w/ May 26 Neurologist appt. Has a couple tests set for mid May. Pt walks dog 2x/day still but only 3 blocks and slowly and uses cane. Pt typically I w/o AD. Cane use inside most of the time now. Treatment Goals Patient/Caregiver Goals improve strength; back to exercising PT-OP-C Subjective Start: 04/28/24 15:22 Freq: Status: Active Protocol: Document 07/07/24 14:37 [facility] (Rec: 07/07/24 15:21 [facility] [id number]) OP-PT Subjective Patient Comments Patient Comments pain in B lower thoracic. Feels weaker. R ankle giving way PT-OP-E Functional Tests Start: 04/28/24 15:22 Freq: Status: Active Protocol: Document 07/07/24 14:37 [facility] (Rec: 07/07/24 15:21 [facility] [id number]) Functional Tests Functional Gait Assessment Score 20/30 PT-OP-F Manual Assessment Start: 04/28/24 15:22 Freq: Status: Active Protocol: Document 04/28/24 15:22 [facility] (Rec: 04/28/24 17:18 [facility] [id number]) Manual Assessments Other Manual Assessments Other Manual Assessments brachioradialis: R 0; L 1+; triceps 0 B; biceps 1+ B; knee ext & plantar flexion reflexes: L 1+; R 2+ PT-OP-G Mobility & Gait Start: 04/28/24 15:22 Freq: Status: Active Protocol: Document 04/28/24 15:22 [facility] (Rec: 04/28/24 17:18 [facility] [id number]) OP Mobility Evaluation Transfers Sit to Stand slow and must use UEs; dec control OP Gait Assessment Comments Gait Comments dec stance time B w/ lat leaning; slow gait and dec push off B-evidence for imbalance Stair Climbing Evaluation Comments Stair Climbing Comments use of rail w/recip step up/ down; significantly dec control down PT-OP-K Range of Motion Start: 04/28/24 15:22 Freq: Status: Active Protocol: Document 07/02/24 09:51 SP (Rec: 07/02/24 10:48 SP [id number]) Shoulder Goniometric Range of Motion Shoulder L Shoulder ROM WFL Yes Testing Position Supine Flexion 180 Comments seated and supine 180 deg AROM light tension end range but no painful supine r Shoulder ROM WFL Yes Testing Position Supine Flexion 180 Comments seated and supine 170 deg discomfort FF seated but can do full range PT-OP-M Strength Start: 04/28/24 15:22 Freq: Status: Active Protocol: Document 07/07/24 14:37 [facility] (Rec: 07/07/24 15:21 [facility] [id number]) Shoulder Strength Shoulder Manual Muscle Testing Right Flexion 4- Good- Extension 4- Good- Abduction (C5) 4+ Good+ External Rotation 4- Good- Internal Rotation 5 Normal Left Flexion 4- Good- Extension 4- Good- Abduction (C5) 4+ Good+ External Rotation 4- Good- Internal Rotation 5 Normal Elbow/Forearm Strength Elbow and Forearm Manual Muscle Testing Right Flexion (C6) 4+ Good+ Extension (C7) 4 Good Left Flexion (C6) 5 Normal Extension (C7) 4+ Good+ Hip Strength Hip Manual Muscle Testing Right Flexion (L2) 3+ Fair+ Abduction 4 Good External Rotation 3+ Fair+ Internal Rotation 4+ Good+ Comments pain to R knee w/ER Left Flexion (L2) 4- Good- Abduction 4 Good External Rotation 3+ Fair+ Internal Rotation 4+ Good+ Comments pain to L mcnulty at point of touch w/ER Knee Strength Knee Manual Muscle Testing Right Flexion (S2) 3+ Fair+ Extension (L3) 4- Good- Left Flexion (S2) 4- Good- Extension (L3) 4+ Good+ Ankle/Foot Strength Ankle and Foot Manual Muscle Testing Right Dorsiflexion (L4) 4+ Good+ Plantarflexion (S1) 4+ Good+ Left Dorsiflexion (L4) 4+ Good+ Plantarflexion (S1) 4+ Good+ Comments seated PF testing B PT-OP-Q Treatments Start: 04/28/24 15:22 Freq: Status: Active Protocol: Document 07/07/24 14:37 [facility] (Rec: 07/07/24 15:21 [facility] [id number]) Gym Equipment Shuttle Recovery Bilateral Heel Raises Resistance 37# Reps/Time 20 Unilateral Squats Details full range Resistance 37# L; 25# R (able to do only 4 w/37# R) Reps/Time 15 B Therapeutic Exercises Other Exercises isometrics Other Exercise Name Eddie mMT Manual Therapy Treatment Consent Patient gave verbal consent for manual Yes treatment Soft Tissue Mobilization spine Body Location R>L thoracic paraspinal Mobilization Type Rolling,Strumming,Sustained Pressure,Other Intensity/Depth Moderate Body Position Sitting Joint Mobilizations thoracic Grade II Body Position Sitting Comments PA T9-10 Neuro Re-Education Treatment Balance Activities dynamic balance Comments FGA PT-OP-T Assessment and Plan Start: 04/28/24 15:22 Freq: Status: Active Protocol: Document 07/07/24 14:37 [facility] (Rec: 07/07/24 15:21 [facility] [id number]) Physical Therapy Assessment Goals balance Impairment FGA [place] Guide Goal (LTG) Improved FGA to at least 24 to show low risk for falls LTG Duration 09/04 ROM Short Term Goal (STG) Pt will be able to do B shoulder flex to at least 100 deg actively STG Duration achieved 06/09 [place] Guide Goal (LTG) Pt will be able to do B shoulder flex to at least 140 deg actively w/o inc pain to allow greater ease w/overhead tasks. 06/09-some discomfort w/ overhead ROM but can move overhead 07/02/24: MET GOAL: BUE 180 deg AROM with little tension on L shld supine and R shld seated at end feel but not pain. LTG Duration 07/21 GOAL MET 07/02/24 activities Short Term Goal (STG) Pt will be able to tolerate biking 15 min a day w/o inc pain or significant fatigue for rest of day to show improved activity tolerance. 05/28-has been doing 5 min every now and then-feels okay. 06/09-10 min a day 07/02/24: able to ride stationary bike before went out of town for 15-20 min with no pain but hasn't tried since back. 07/07-hasn't been biking recently d/t R knee pain and feeling wiped out the last 5 days, was doing every other day for 20 min prior to that STG Duration 08/06 [place] Guide Goal (LTG) Pt will be able to resume walking daily about 1 mile w/o inc pain or feeling of unsteadiness or weakness 05/28-Has been able to do 4 blocks twice a day -increased some; did 1 mile walk 1x and felt okay-depends on day 07/02/24 was walking about 15- 20 min with no back pain but having R ankle pain. 07/07-20 min walks but not fast; ankle sore LTG Duration 09/19 strength Short Term Goal (STG) Pt will be indep w/HEP STG Duration achieved advancing as able [place] Guide Goal (LTG) Pt will score at least 4+/5 on all UE and LE MMT B to show improved strength to allow greater ease of function 05/28-improving 07/02/24 added side hip abd and segmental bridging for core and LE strengthening support balance and mobility. 07/07-improving LTG Duration 09/15 DGI Impairment Short Term Goal (STG) Pt will improve DGI score to at least 17/24 to show improved balance and dec risk for falls. 05/28-16 STG Duration achieved 06/09 [place] Guide Goal (LTG) Pt will improve DGI score to at least 20/24 to show improved balance and low risk for falls. LTG Duration achieved 06/09 Assessment Summary Assessment Pt is improving overall but had a poitnt where she has progressed more recently prior to the past few weeks where she has had a return of her tingling and weakness of RLE mostly and feelign unstable at R ankle. Pt to follow up w/ primary re: this. Cont PT for strength and balance as pt still at risk for falls Physical Therapy Plan Frequency and Duration Frequency of Treatment 2x/Week Duration of treatment (weeks) 10 Plan of Care Start Date 07/07/24 Plan of Care End Date 09/15/24 Therapeutic Interventions Therapeutic Interventions Balance Training,Canalithic Repositioning,Coordination Training,Gait Training,Home Exercise Program,Joint Mobilizations,Manual Therapy, Neuromuscular Re-education, Patient/Caregiver Education, Self-Care/Home Management,Soft Tissue Mobilization,Taping, Therapeutic Activities, Therapeutic Exercises, Vestibular Rehabilitation Modalities Cold Pack/Ice Massage,Electric Stimulation,Hot Packs Next Visit Focus/Plan Next Note Type Treatment Note Next Visit Plan advance balance and strength as able
--- NOTE | 2024-07-09 14:00 | PT.OTN ---
Current Diagnoses Other chronic pain (07/09/24) Spondylosis without myelopathy or radiculopathy, lumbar region (07/09/24) Other intervertebral disc degeneration, lumbar region (07/09/24) Cervicalgia (07/09/24) Low back pain, unspecified (07/09/24) Anesthesia of skin (07/09/24) Paresthesia of skin (07/09/24) Unsteadiness on feet (07/09/24) Other symptoms and signs involving the musculoskeletal system (07/09/24) Physical Therapy Treatment Note PT-OP-A Visit Information Start: 04/28/24 15:22 Freq: Status: Active Protocol: Document 07/09/24 11:35 [facility] (Rec: 07/09/24 14:00 [facility] [id number]) Out-Patient Physical Therapy Visit Information Visit Information Visit Type Treatment Note Visit Start Time 11:35 Visit Stop Time 12:15 Visit Number 17 (10/05 with last PN) Number of SOFTWARE QUALITY ASSURANCE SPECIALIST Visits 0 PT-OP-B Current Condition Start: 04/28/24 15:22 Freq: Status: Active Protocol: Document 04/28/24 15:22 [facility] (Rec: 04/28/24 17:18 [facility] [id number]) Current Condition History of Current Condition Onset Date about 2 months w/hx prior Current Complaints back pain, thoracic pain, body stiffness History of Current Condition Pt has had a lot of stress d/t past week having memory issues, and DIL having MCKEON and possible fluid in brain and dog being sick. Pt reports significant weakness in BUEs and LEs. Limited overhead B UE ROM. cervical, thoracic and lumbar MRIs looked okay except degenerative changes. MRI of head WNL. Pt reports last wed was really weak and legs collapse and she crumpled around garbage can and she couldn't straighten back up and had to lift her up . She has tingling for about 3 weeks where it was waking her up at night. It felt like pulsating from upper back into fingertips and all the way to toes. That has lessened some. Feel like trunk is going to be frozen. Has been not exercising but is exhausted. Did try the bike slowly and not for long and can do it. Has not been getting good sleep at night. Trying to keep busy since feels like if she stops, she will get too weak. Sometimes between shoulder blades and in lumbar area is painful. Pt had GI issues in spring and winter including nausesa but it is gone. Still having instances of voice change. She saw provider at w/spray up nose and throat. She has to go to GI doctor and has an appt Jun 10 along w/ May 26 Neurologist appt. Has a couple tests set for mid May. Pt walks dog 2x/day still but only 3 blocks and slowly and uses cane. Pt typically I w/o AD. Cane use inside most of the time now. Treatment Goals Patient/Caregiver Goals improve strength; back to exercising PT-OP-C Subjective Start: 04/28/24 15:22 Freq: Status: Active Protocol: Document 07/09/24 11:35 [facility] (Rec: 07/09/24 14:00 [facility] [id number]) OP-PT Subjective Patient Comments Patient Comments Pt reports tried 5 min on bike and was exhausted after PT-OP-E Functional Tests Start: 04/28/24 15:22 Freq: Status: Active Protocol: Document 07/07/24 14:37 [facility] (Rec: 07/07/24 15:21 [facility] [id number]) Functional Tests Functional Gait Assessment Score 20/30 PT-OP-F Manual Assessment Start: 04/28/24 15:22 Freq: Status: Active Protocol: Document 04/28/24 15:22 [facility] (Rec: 04/28/24 17:18 [facility] [id number]) Manual Assessments Other Manual Assessments Other Manual Assessments brachioradialis: R 0; L 1+; triceps 0 B; biceps 1+ B; knee ext & plantar flexion reflexes: L 1+; R 2+ PT-OP-G Mobility & Gait Start: 04/28/24 15:22 Freq: Status: Active Protocol: Document 04/28/24 15:22 [facility] (Rec: 04/28/24 17:18 [facility] [id number]) OP Mobility Evaluation Transfers Sit to Stand slow and must use UEs; dec control OP Gait Assessment Comments Gait Comments dec stance time B w/ lat leaning; slow gait and dec push off B-evidence for imbalance Stair Climbing Evaluation Comments Stair Climbing Comments use of rail w/recip step up/ down; significantly dec control down PT-OP-K Range of Motion Start: 04/28/24 15:22 Freq: Status: Active Protocol: Document 07/02/24 09:51 [facility] (Rec: 07/02/24 10:48 [facility] [id number]) Shoulder Goniometric Range of Motion Shoulder L Shoulder ROM WFL Yes Testing Position Supine Flexion 180 Comments seated and supine 180 deg AROM light tension end range but no painful supine r Shoulder ROM WFL Yes Testing Position Supine Flexion 180 Comments seated and supine 170 deg discomfort FF seated but can do full range PT-OP-M Strength Start: 04/28/24 15:22 Freq: Status: Active Protocol: Document 07/07/24 14:37 [facility] (Rec: 07/07/24 15:21 [facility] [id number]) Shoulder Strength Shoulder Manual Muscle Testing Right Flexion 4- Good- Extension 4- Good- Abduction (C5) 4+ Good+ External Rotation 4- Good- Internal Rotation 5 Normal Left Flexion 4- Good- Extension 4- Good- Abduction (C5) 4+ Good+ External Rotation 4- Good- Internal Rotation 5 Normal Elbow/Forearm Strength Elbow and Forearm Manual Muscle Testing Right Flexion (C6) 4+ Good+ Extension (C7) 4 Good Left Flexion (C6) 5 Normal Extension (C7) 4+ Good+ Hip Strength Hip Manual Muscle Testing Right Flexion (L2) 3+ Fair+ Abduction 4 Good External Rotation 3+ Fair+ Internal Rotation 4+ Good+ Comments pain to R knee w/ER Left Flexion (L2) 4- Good- Abduction 4 Good External Rotation 3+ Fair+ Internal Rotation 4+ Good+ Comments pain to L mcnulty at point of touch w/ER Knee Strength Knee Manual Muscle Testing Right Flexion (S2) 3+ Fair+ Extension (L3) 4- Good- Left Flexion (S2) 4- Good- Extension (L3) 4+ Good+ Ankle/Foot Strength Ankle and Foot Manual Muscle Testing Right Dorsiflexion (L4) 4+ Good+ Plantarflexion (S1) 4+ Good+ Left Dorsiflexion (L4) 4+ Good+ Plantarflexion (S1) 4+ Good+ Comments seated PF testing B PT-OP-Q Treatments Start: 04/28/24 15:22 Freq: Status: Active Protocol: Document 07/09/24 11:35 [facility] (Rec: 07/09/24 14:00 [facility] [id number]) Gym Equipment Shuttle Balance red clips Comments FWd and Side : WBOS w/balloon volley fwd: NBOS w/balloon volley Therapeutic Exercises Standing Exercises walk Standing Exercise Name 1. toe walks 2. heel walks Side bilateral Equipment Used PARCEL CONTRACTOR w/PT Reps/Minutes 20ft ea squat Standing Exercise Name on black foam Side bilateral Reps/Minutes 15 Comments partial range heel raises Standing Exercise Name on step w/rail Side bilateral Reps/Minutes 15 resisted walk Standing Exercise Name w/dowel Side bilateral Reps/Minutes 20ftx4 Neuro Re-Education Treatment Balance Activities [place] Comments inc speed 2x20ft Bosu Comments 1. standing balance blue 2. fwd/back and lat wt shifts blue tandem Comments fwd/back walk x20ft rail back tilt board Details EO and EC Comments fwd/back tilts & lat tilts corner balance Comments PF stand w/head turns PT-OP-T Assessment and Plan Start: 04/28/24 15:22 Freq: Status: Active Protocol: Document 07/09/24 11:35 [facility] (Rec: 07/09/24 14:00 [facility] [id number]) Physical Therapy Assessment Goals balance Impairment FGA 20/30 Levi Maker Goal (LTG) Improved FGA to at least 24 to show low risk for falls LTG Duration 09/04 ROM Short Term Goal (STG) Pt will be able to do B shoulder flex to at least 100 deg actively STG Duration achieved 06/09 Levi Maker Goal (LTG) Pt will be able to do B shoulder flex to at least 140 deg actively w/o inc pain to allow greater ease w/overhead tasks. 06/09-some discomfort w/ overhead ROM but can move overhead 07/02/24: MET GOAL: BUE 180 deg AROM with little tension on L shld supine and R shld seated at end feel but not pain. LTG Duration 07/21 GOAL MET 07/02/24 activities Short Term Goal (STG) Pt will be able to tolerate biking 15 min a day w/o inc pain or significant fatigue for rest of day to show improved activity tolerance. 05/28-has been doing 5 min every now and then-feels okay. 06/09-10 min a day 07/02/24: able to ride stationary bike before went out of town for 15-20 min with no pain but hasn't tried since back. 07/07-hasn't been biking recently d/t R knee pain and feeling wiped out the last 5 days, was doing every other day for 20 min prior to that STG Duration 08/06 Levi Maker Goal (LTG) Pt will be able to resume walking daily about 1 mile w/o inc pain or feeling of unsteadiness or weakness 05/28-Has been able to do 4 blocks twice a day -increased some; did 1 mile walk 1x and felt okay-depends on day 07/02/24 was walking about 15- 20 min with no back pain but having R ankle pain. 07/07-20 min walks but not fast; ankle sore LTG Duration 09/19 strength Short Term Goal (STG) Pt will be indep w/HEP STG Duration achieved advancing as able Halfway Goal (LTG) Pt will score at least 4+/5 on all UE and LE MMT B to show improved strength to allow greater ease of function 05/28-improving 07/02/24 added side hip abd and segmental bridging for core and LE strengthening support balance and mobility. 07/07-improving LTG Duration 09/15 DGI Impairment Short Term Goal (STG) Pt will improve DGI score to at least 17/24 to show improved balance and dec risk for falls. 05/28-16 STG Duration achieved 06/09 Halfway Goal (LTG) Pt will improve DGI score to at least 20/24 to show improved balance and low risk for falls. LTG Duration achieved 06/09 Assessment Summary Assessment Pt challenged by activities that require more ankle stability like toe and heel walks and PF stand. She is still weak R>L ankle and does report fatigue w/session Physical Therapy Plan Frequency and Duration Frequency of Treatment 2x/Week Duration of treatment (weeks) 10 Plan of Care Start Date 07/07/24 Plan of Care End Date 09/15/24 Next Visit Focus/Plan Next Note Type Treatment Note Next Visit Plan advance balance and strength as able
--- NOTE | 2024-07-16 12:25 | PT.OTN ---
Current Diagnoses Other chronic pain (07/16/24) Spondylosis without myelopathy or radiculopathy, lumbar region (07/16/24) Other intervertebral disc degeneration, lumbar region (07/16/24) Cervicalgia (07/16/24) Low back pain, unspecified (07/16/24) Anesthesia of skin (07/16/24) Paresthesia of skin (07/16/24) Unsteadiness on feet (07/16/24) Other symptoms and signs involving the musculoskeletal system (07/16/24) Physical Therapy Treatment Note PT-OP-A Visit Information Start: 04/28/24 15:22 Freq: Status: Active Protocol: Document 07/16/24 11:34 [facility] (Rec: 07/16/24 12:25 [facility] [id number]) Out-Patient Physical Therapy Visit Information Visit Information Visit Type Treatment Note Visit Start Time 11:35 Visit Stop Time 12:15 Visit Number 18 (11/02 with last PN) Number of MARKETING/SALES PERSON Visits 0 PT-OP-B Current Condition Start: 04/28/24 15:22 Freq: Status: Active Protocol: Document 04/28/24 15:22 [facility] (Rec: 04/28/24 17:18 [facility] [id number]) Current Condition History of Current Condition Onset Date about 2 months w/hx prior Current Complaints back pain, thoracic pain, body stiffness History of Current Condition Pt has had a lot of stress d/t past week having memory issues, and DIL having MCKEON and possible fluid in brain and dog being sick. Pt reports significant weakness in BUEs and LEs. Limited overhead B UE ROM. cervical, thoracic and lumbar MRIs looked okay except degenerative changes. MRI of head WNL. Pt reports last wed was really weak and legs collapse and she crumpled around garbage can and she couldn't straighten back up and had to lift her up . She has tingling for about 3 weeks where it was waking her up at night. It felt like pulsating from upper back into fingertips and all the way to toes. That has lessened some. Feel like trunk is going to be frozen. Has been not exercising but is exhausted. Did try the bike slowly and not for long and can do it. Has not been getting good sleep at night. Trying to keep busy since feels like if she stops, she will get too weak. Sometimes between shoulder blades and in lumbar area is painful. Pt had GI issues in spring and winter including nausesa but it is gone. Still having instances of voice change. She saw provider at w/spray up nose and throat. She has to go to GI doctor and has an appt Jun 10 along w/ May 26 Neurologist appt. Has a couple tests set for mid May. Pt walks dog 2x/day still but only 3 blocks and slowly and uses cane. Pt typically I w/o AD. Cane use inside most of the time now. Treatment Goals Patient/Caregiver Goals improve strength; back to exercising PT-OP-C Subjective Start: 04/28/24 15:22 Freq: Status: Active Protocol: Document 07/16/24 11:34 [facility] (Rec: 07/16/24 12:25 [facility] [id number]) OP-PT Subjective Patient Comments Patient Comments is exausted. has been waking up at 330 am. Lots going on w/ 's health too. PT-OP-E Functional Tests Start: 04/28/24 15:22 Freq: Status: Active Protocol: Document 07/07/24 14:37 [facility] (Rec: 07/07/24 15:21 [facility] [id number]) Functional Tests Functional Gait Assessment Score 20/30 PT-OP-F Manual Assessment Start: 04/28/24 15:22 Freq: Status: Active Protocol: Document 04/28/24 15:22 [facility] (Rec: 04/28/24 17:18 [facility] [id number]) Manual Assessments Other Manual Assessments Other Manual Assessments brachioradialis: R 0; L 1+; triceps 0 B; biceps 1+ B; knee ext & plantar flexion reflexes: L 1+; R 2+ PT-OP-G Mobility & Gait Start: 04/28/24 15:22 Freq: Status: Active Protocol: Document 04/28/24 15:22 [facility] (Rec: 04/28/24 17:18 [facility] [id number]) OP Mobility Evaluation Transfers Sit to Stand slow and must use UEs; dec control OP Gait Assessment Comments Gait Comments dec stance time B w/ lat leaning; slow gait and dec push off B-evidence for imbalance Stair Climbing Evaluation Comments Stair Climbing Comments use of rail w/recip step up/ down; significantly dec control down PT-OP-K Range of Motion Start: 04/28/24 15:22 Freq: Status: Active Protocol: Document 07/02/24 09:51 [facility] (Rec: 07/02/24 10:48 [facility] [id number]) Shoulder Goniometric Range of Motion Shoulder L Shoulder ROM WFL Yes Testing Position Supine Flexion 180 Comments seated and supine 180 deg AROM light tension end range but no painful supine r Shoulder ROM WFL Yes Testing Position Supine Flexion 180 Comments seated and supine 170 deg discomfort FF seated but can do full range PT-OP-M Strength Start: 04/28/24 15:22 Freq: Status: Active Protocol: Document 07/07/24 14:37 [facility] (Rec: 07/07/24 15:21 [facility] [id number]) Shoulder Strength Shoulder Manual Muscle Testing Right Flexion 4- Good- Extension 4- Good- Abduction (C5) 4+ Good+ External Rotation 4- Good- Internal Rotation 5 Normal Left Flexion 4- Good- Extension 4- Good- Abduction (C5) 4+ Good+ External Rotation 4- Good- Internal Rotation 5 Normal Elbow/Forearm Strength Elbow and Forearm Manual Muscle Testing Right Flexion (C6) 4+ Good+ Extension (C7) 4 Good Left Flexion (C6) 5 Normal Extension (C7) 4+ Good+ Hip Strength Hip Manual Muscle Testing Right Flexion (L2) 3+ Fair+ Abduction 4 Good External Rotation 3+ Fair+ Internal Rotation 4+ Good+ Comments pain to R knee w/ER Left Flexion (L2) 4- Good- Abduction 4 Good External Rotation 3+ Fair+ Internal Rotation 4+ Good+ Comments pain to L mcnulty at point of touch w/ER Knee Strength Knee Manual Muscle Testing Right Flexion (S2) 3+ Fair+ Extension (L3) 4- Good- Left Flexion (S2) 4- Good- Extension (L3) 4+ Good+ Ankle/Foot Strength Ankle and Foot Manual Muscle Testing Right Dorsiflexion (L4) 4+ Good+ Plantarflexion (S1) 4+ Good+ Left Dorsiflexion (L4) 4+ Good+ Plantarflexion (S1) 4+ Good+ Comments seated PF testing B PT-OP-Q Treatments Start: 04/28/24 15:22 Freq: Status: Active Protocol: Document 07/16/24 11:34 [facility] (Rec: 07/16/24 12:25 [facility] [id number]) Gym Equipment Shuttle Recovery Unilateral Heel Raises Details SL Resistance 12# Reps/Time 15 B Unilateral Squats Details full range Resistance 37# Reps/Time 15 B Bilateral Squats Resistance 75# (navy) Reps/Time 20 Therapeutic Ball seated Ball Size/Color 65cm Body Position seated Reps/Duration 15 ea Comments 1. marches B 2. kicks B w/arms in front 3. march w/alt UE lifts Therapeutic Exercises Sitting Exercises sit backs Sitting Exercise Name back straight reverse hip hinge sit Reps/Minutes 12 Standing Exercises walk Standing Exercise Name 1. toe walks 2. heel walks Side bilateral Equipment Used ENVIRONMENTAL COMPLIANCE TECHNICIAN w/PT Reps/Minutes 20ft ea step ups Side bilateral Equipment Used 1.8 in step 2. 6 in step Reps/Minutes 1. 5 B 2.10 Comments to SL-cues control descent squat Standing Exercise Name on blue foam Side bilateral Equipment Used chair behind Reps/Minutes 15 Comments partial range-cues hip hinge heel raises Standing Exercise Name on step w/rail Side bilateral Reps/Minutes 12 Neuro Re-Education Treatment Balance Activities [place] Comments inc speed 2x20ft Bosu Comments 1. standing balance blue 2. fwd/back and lat wt shifts blue PT-OP-T Assessment and Plan Start: 04/28/24 15:22 Freq: Status: Active Protocol: Document 07/16/24 11:34 [facility] (Rec: 07/16/24 12:25 [facility] [id number]) Physical Therapy Assessment Goals balance Impairment FGA 20/30 Engine Repairer Goal (LTG) Improved FGA to at least 24 to show low risk for falls LTG Duration 1/10 ROM Short Term Goal (STG) Pt will be able to do B shoulder flex to at least 100 deg actively STG Duration achieved 06/09 Retirement Goal (LTG) Pt will be able to do B shoulder flex to at least 140 deg actively w/o inc pain to allow greater ease w/overhead tasks. 06/09-some discomfort w/ overhead ROM but can move overhead 07/02/24: MET GOAL: BUE 180 deg AROM with little tension on L shld supine and R shld seated at end feel but not pain. LTG Duration 07/21 GOAL MET 07/02/24 activities Short Term Goal (STG) Pt will be able to tolerate biking 15 min a day w/o inc pain or significant fatigue for rest of day to show improved activity tolerance. 05/28-has been doing 5 min every now and then-feels okay. 06/09-10 min a day 07/02/24: able to ride stationary bike before went out of town for 15-20 min with no pain but hasn't tried since back. 07/07-hasn't been biking recently d/t R knee pain and feeling wiped out the last 5 days, was doing every other day for 20 min prior to that STG Duration 08/06 Retirement Goal (LTG) Pt will be able to resume walking daily about 1 mile w/o inc pain or feeling of unsteadiness or weakness 05/28-Has been able to do 4 blocks twice a day -increased some; did 1 mile walk 1x and felt okay-depends on day 07/02/24 was walking about 15- 20 min with no back pain but having R ankle pain. 07/07-20 min walks but not fast; ankle sore LTG Duration 09/19 strength Short Term Goal (STG) Pt will be indep w/HEP STG Duration achieved advancing as able Engine Repairer Goal (LTG) Pt will score at least 4+/5 on all UE and LE MMT B to show improved strength to allow greater ease of function 05/28-improving 07/02/24 added side hip abd and segmental bridging for core and LE strengthening support balance and mobility. 07/07-improving LTG Duration 09/15 DGI Impairment 14 Short Term Goal (STG) Pt will improve DGI score to at least 17/24 to show improved balance and dec risk for falls. 05/28-16 STG Duration achieved 21 06/09 Retirement Goal (LTG) Pt will improve DGI score to at least 20/24 to show improved balance and low risk for falls. LTG Duration achieved 06/09 Assessment Summary Assessment Pt did better with all balance and strength activities today . Was challenged by core exercises. Physical Therapy Plan Frequency and Duration Frequency of Treatment 2x/Week Duration of treatment (weeks) 10 Plan of Care Start Date 07/07/24 Plan of Care End Date 09/15/24 Next Visit Focus/Plan Next Note Type Treatment Note Next Visit Plan advance balance and strength as able
--- NOTE | 2024-07-29 15:40 | PT.OTN ---
Current Diagnoses Other chronic pain (07/29/24) Spondylosis without myelopathy or radiculopathy, lumbar region (07/29/24) Other intervertebral disc degeneration, lumbar region (07/29/24) Cervicalgia (07/29/24) Low back pain, unspecified (07/29/24) Anesthesia of skin (07/29/24) Paresthesia of skin (07/29/24) Unsteadiness on feet (07/29/24) Other symptoms and signs involving the musculoskeletal system (07/29/24) Physical Therapy Treatment Note PT-OP-A Visit Information Start: 04/28/24 15:22 Freq: Status: Active Protocol: Document 07/29/24 13:46 AB (Rec: 07/29/24 15:40 AB [id number]) Out-Patient Physical Therapy Visit Information Visit Information Visit Type Treatment Note Visit Start Time 13:48 Visit Stop Time 14:35 Visit Number 19 Number of INFORMATION SYSTEMS SECURITY ANALYST Visits 1 PT-OP-B Current Condition Start: 04/28/24 15:22 Freq: Status: Active Protocol: Document 04/28/24 15:22 [facility] (Rec: 04/28/24 17:18 [facility] [id number]) Current Condition History of Current Condition Onset Date about 2 months w/hx prior Current Complaints back pain, thoracic pain, body stiffness History of Current Condition Pt has had a lot of stress d/t past week having memory issues, and DIL having MCKEON and possible fluid in brain and dog being sick. Pt reports significant weakness in BUEs and LEs. Limited overhead B UE ROM. cervical, thoracic and lumbar MRIs looked okay except degenerative changes. MRI of head WNL. Pt reports last wed was really weak and legs collapse and she crumpled around garbage can and she couldn't straighten back up and had to lift her up . She has tingling for about 3 weeks where it was waking her up at night. It felt like pulsating from upper back into fingertips and all the way to toes. That has lessened some. Feel like trunk is going to be frozen. Has been not exercising but is exhausted. Did try the bike slowly and not for long and can do it. Has not been getting good sleep at night. Trying to keep busy since feels like if she stops, she will get too weak. Sometimes between shoulder blades and in lumbar area is painful. Pt had GI issues in spring and winter including nausesa but it is gone. Still having instances of voice change. She saw provider at w/spray up nose and throat. She has to go to GI doctor and has an appt Jun 10 along w/ May 26 Neurologist appt. Has a couple tests set for mid May. Pt walks dog 2x/day still but only 3 blocks and slowly and uses cane. Pt typically I w/o AD. Cane use inside most of the time now. Treatment Goals Patient/Caregiver Goals improve strength; back to exercising PT-OP-C Subjective Start: 04/28/24 15:22 Freq: Status: Active Protocol: Document 07/29/24 13:46 AB (Rec: 07/29/24 15:40 AB [id number]) OP-PT Subjective Patient Comments Patient Comments Patient reports she has appt to see neuro November 24, 2024 and is on the wait list. Patient rates thoracic back pain 3-4/ 10 start of session unaware of cause per patient. Pt reports performing HEP regularly, not riding bike due to back pain. Seated trunk rot 5% left 10% PT-OP-E Functional Tests Start: 04/28/24 15:22 Freq: Status: Active Protocol: Document 07/07/24 14:37 [facility] (Rec: 07/07/24 15:21 [facility] [id number]) Functional Tests Functional Gait Assessment Score 20/30 PT-OP-F Manual Assessment Start: 04/28/24 15:22 Freq: Status: Active Protocol: Document 04/28/24 15:22 [facility] (Rec: 04/28/24 17:18 [facility] [id number]) Manual Assessments Other Manual Assessments Other Manual Assessments brachioradialis: R 0; L 1+; triceps 0 B; biceps 1+ B; knee ext & plantar flexion reflexes: L 1+; R 2+ PT-OP-G Mobility & Gait Start: 04/28/24 15:22 Freq: Status: Active Protocol: Document 04/28/24 15:22 [facility] (Rec: 04/28/24 17:18 [facility] [id number]) OP Mobility Evaluation Transfers Sit to Stand slow and must use UEs; dec control OP Gait Assessment Comments Gait Comments dec stance time B w/ lat leaning; slow gait and dec push off B-evidence for imbalance Stair Climbing Evaluation Comments Stair Climbing Comments use of rail w/recip step up/ down; significantly dec control down PT-OP-K Range of Motion Start: 04/28/24 15:22 Freq: Status: Active Protocol: Document 07/02/24 09:51 SP (Rec: 07/02/24 10:48 SP [id number]) Shoulder Goniometric Range of Motion Shoulder L Shoulder ROM WFL Yes Testing Position Supine Flexion 180 Comments seated and supine 180 deg AROM light tension end range but no painful supine r Shoulder ROM WFL Yes Testing Position Supine Flexion 180 Comments seated and supine 170 deg discomfort FF seated but can do full range PT-OP-M Strength Start: 04/28/24 15:22 Freq: Status: Active Protocol: Document 07/07/24 14:37 [facility] (Rec: 07/07/24 15:21 [facility] [id number]) Shoulder Strength Shoulder Manual Muscle Testing Right Flexion 4- Good- Extension 4- Good- Abduction (C5) 4+ Good+ External Rotation 4- Good- Internal Rotation 5 Normal Left Flexion 4- Good- Extension 4- Good- Abduction (C5) 4+ Good+ External Rotation 4- Good- Internal Rotation 5 Normal Elbow/Forearm Strength Elbow and Forearm Manual Muscle Testing Right Flexion (C6) 4+ Good+ Extension (C7) 4 Good Left Flexion (C6) 5 Normal Extension (C7) 4+ Good+ Hip Strength Hip Manual Muscle Testing Right Flexion (L2) 3+ Fair+ Abduction 4 Good External Rotation 3+ Fair+ Internal Rotation 4+ Good+ Comments pain to R knee w/ER Left Flexion (L2) 4- Good- Abduction 4 Good External Rotation 3+ Fair+ Internal Rotation 4+ Good+ Comments pain to L mcnulty at point of touch w/ER Knee Strength Knee Manual Muscle Testing Right Flexion (S2) 3+ Fair+ Extension (L3) 4- Good- Left Flexion (S2) 4- Good- Extension (L3) 4+ Good+ Ankle/Foot Strength Ankle and Foot Manual Muscle Testing Right Dorsiflexion (L4) 4+ Good+ Plantarflexion (S1) 4+ Good+ Left Dorsiflexion (L4) 4+ Good+ Plantarflexion (S1) 4+ Good+ Comments seated PF testing B PT-OP-Q Treatments Start: 04/28/24 15:22 Freq: Status: Active Protocol: Document 07/29/24 13:46 AB (Rec: 07/29/24 15:40 AB [id number]) Therapeutic Exercises Supine Exercises alt UE flexion 1/2 foam roller soft Supine Exercise Name modified to standing at wall Side bilateral Reps/Minutes X10 Sidelying Exercises open book Side bilateral Resistance AROM Reps/Minutes 5 ea, Comments post manual Sitting Exercises seated trunk rotation Sitting Exercise Name AROM Side bilateral Reps/Minutes X3 Comments Verbal cues to turn trunk vs head Standing Exercises row Comments Verbal cues and HEP notes for one UE at a time Therapeutic Activity Therapeutic Activity cat cow Name in counter plank position Reps/Minutes X10 ( X8 to HEP) Comments on forearms Verbal and visual cues Manual Therapy Treatment Soft Tissue Mobilization L shld Body Location B shoulders post cuff UT/lev scap Mobilization Type Cross-Friction,Rolling Intensity/Depth Moderate Body Position Sidelying spine Body Location thoracic paraspinal Mobilization Type Cross-Friction,Rolling, Sustained Pressure,Other Intensity/Depth Moderate Body Position Sidelying Joint Mobilizations scapular Joint bilateral scapula Direction into depression and adduction Body Position Sidelying Reps/Duration X10 each direction each shoulder ribs Direction inf Body Position Sidelying Comments 3rd caudal with flexion bilaterally with shoulder flexion Manual Techniques Passive stretch Type 10 and 11 ribs R Body Position Sidelying Reps/Duration X1 each with breathing PT-OP-T Assessment and Plan Start: 04/28/24 15:22 Freq: Status: Active Protocol: Document 07/29/24 13:46 AB (Rec: 07/29/24 15:40 AB [id number]) Physical Therapy Assessment Goals balance Impairment FGA 20/30 Detention Goal (LTG) Improved FGA to at least 24 to show low risk for falls LTG Duration 09/04 ROM Short Term Goal (STG) Pt will be able to do B shoulder flex to at least 100 deg actively STG Duration achieved 06/09 Certified Residential Medication Aide Goal (LTG) Pt will be able to do B shoulder flex to at least 140 deg actively w/o inc pain to allow greater ease w/overhead tasks. 06/09-some discomfort w/ overhead ROM but can move overhead 07/02/24: MET GOAL: BUE 180 deg AROM with little tension on L shld supine and R shld seated at end feel but not pain. LTG Duration 07/21 GOAL MET 07/02/24 activities Short Term Goal (STG) Pt will be able to tolerate biking 15 min a day w/o inc pain or significant fatigue for rest of day to show improved activity tolerance. 05/28-has been doing 5 min every now and then-feels okay. 06/09-10 min a day 07/02/24: able to ride stationary bike before went out of town for 15-20 min with no pain but hasn't tried since back. 07/07-hasn't been biking recently d/t R knee pain and feeling wiped out the last 5 days, was doing every other day for 20 min prior to that STG Duration 08/06 Certified Residential Medication Aide Goal (LTG) Pt will be able to resume walking daily about 1 mile w/o inc pain or feeling of unsteadiness or weakness 05/28-Has been able to do 4 blocks twice a day -increased some; did 1 mile walk 1x and felt okay-depends on day 07/02/24 was walking about 15- 20 min with no back pain but having R ankle pain. 07/07-20 min walks but not fast; ankle sore LTG Duration 09/19 strength Short Term Goal (STG) Pt will be indep w/HEP STG Duration achieved advancing as able Detention Goal (LTG) Pt will score at least 4+/5 on all UE and LE MMT B to show improved strength to allow greater ease of function 05/28-improving 07/02/24 added side hip abd and segmental bridging for core and LE strengthening support balance and mobility. 07/07-improving LTG Duration 09/15 DGI Impairment Short Term Goal (STG) Pt will improve DGI score to at least 17/ to show improved balance and dec risk for falls. 05/28- STG Duration achieved 06/09 Detention Goal (LTG) Pt will improve DGI score to at least 20/24 to show improved balance and low risk for falls. LTG Duration achieved 06/09 Assessment Summary Assessment Kristi rates thoracic pain 3-4 end of session, visual improvement in AROM trunk rotation left end of session, right continues to be significantly hypomobile. Physical Therapy Plan Frequency and Duration Frequency of Treatment 2x/Week Duration of treatment (weeks) 10 Plan of Care Start Date 07/07/24 Plan of Care End Date 09/15/24 Next Visit Focus/Plan Next Note Type Treatment Note Next Visit Plan bent row vs row with band advance balance and strength as able
--- NOTE | 2024-07-31 16:43 | PT.OTN ---
Current Diagnoses Other chronic pain (07/31/24) Spondylosis without myelopathy or radiculopathy, lumbar region (07/31/24) Other intervertebral disc degeneration, lumbar region (07/31/24) Cervicalgia (07/31/24) Low back pain, unspecified (07/31/24) Anesthesia of skin (07/31/24) Paresthesia of skin (07/31/24) Unsteadiness on feet (07/31/24) Other symptoms and signs involving the musculoskeletal system (07/31/24) Physical Therapy Treatment Note PT-OP-A Visit Information Start: 04/28/24 15:22 Freq: Status: Active Protocol: Document 07/31/24 13:47 AB (Rec: 07/31/24 14:39 AB [id number]) Out-Patient Physical Therapy Visit Information Visit Information Visit Type Treatment Note Visit Start Time 13:48 Visit Stop Time 14:33 Visit Number 20 Number of MARKETING ANALYST Visits 1 PT-OP-B Current Condition Start: 04/28/24 15:22 Freq: Status: Active Protocol: Document 04/28/24 15:22 [facility] (Rec: 04/28/24 17:18 [facility] [id number]) Current Condition History of Current Condition Onset Date about 2 months w/hx prior Current Complaints back pain, thoracic pain, body stiffness History of Current Condition Pt has had a lot of stress d/t past week having memory issues, and DIL having MCKEON and possible fluid in brain and dog being sick. Pt reports significant weakness in BUEs and LEs. Limited overhead B UE ROM. cervical, thoracic and lumbar MRIs looked okay except degenerative changes. MRI of head WNL. Pt reports last wed was really weak and legs collapse and she crumpled around garbage can and she couldn't straighten back up and had to lift her up . She has tingling for about 3 weeks where it was waking her up at night. It felt like pulsating from upper back into fingertips and all the way to toes. That has lessened some. Feel like trunk is going to be frozen. Has been not exercising but is exhausted. Did try the bike slowly and not for long and can do it. Has not been getting good sleep at night. Trying to keep busy since feels like if she stops, she will get too weak. Sometimes between shoulder blades and in lumbar area is painful. Pt had GI issues in spring and winter including nausesa but it is gone. Still having instances of voice change. She saw provider at w/spray up nose and throat. She has to go to GI doctor and has an appt Jun 10 along w/ May 26 Neurologist appt. Has a couple tests set for mid May. Pt walks dog 2x/day still but only 3 blocks and slowly and uses cane. Pt typically I w/o AD. Cane use inside most of the time now. Treatment Goals Patient/Caregiver Goals improve strength; back to exercising PT-OP-C Subjective Start: 04/28/24 15:22 Freq: Status: Active Protocol: Document 07/31/24 13:47 AB (Rec: 07/31/24 16:36 AB [id number]) OP-PT Subjective Patient Comments Patient Comments Very limited AROM trunk rotation seated right left persists. PT-OP-E Functional Tests Start: 04/28/24 15:22 Freq: Status: Active Protocol: Document 07/07/24 14:37 [facility] (Rec: 07/07/24 15:21 [facility] [id number]) Functional Tests Functional Gait Assessment Score 20/30 PT-OP-F Manual Assessment Start: 04/28/24 15:22 Freq: Status: Active Protocol: Document 04/28/24 15:22 [facility] (Rec: 04/28/24 17:18 [facility] [id number]) Manual Assessments Other Manual Assessments Other Manual Assessments brachioradialis: R 0; L 1+; triceps 0 B; biceps 1+ B; knee ext & plantar flexion reflexes: L 1+; R 2+ PT-OP-G Mobility & Gait Start: 04/28/24 15:22 Freq: Status: Active Protocol: Document 04/28/24 15:22 [facility] (Rec: 04/28/24 17:18 [facility] [id number]) OP Mobility Evaluation Transfers Sit to Stand slow and must use UEs; dec control OP Gait Assessment Comments Gait Comments dec stance time B w/ lat leaning; slow gait and dec push off B-evidence for imbalance Stair Climbing Evaluation Comments Stair Climbing Comments use of rail w/recip step up/ down; significantly dec control down PT-OP-K Range of Motion Start: 04/28/24 15:22 Freq: Status: Active Protocol: Document 07/02/24 09:51 SP (Rec: 07/02/24 10:48 SP [id number]) Shoulder Goniometric Range of Motion Shoulder L Shoulder ROM WFL Yes Testing Position Supine Flexion 180 Comments seated and supine 180 deg AROM light tension end range but no painful supine r Shoulder ROM WFL Yes Testing Position Supine Flexion 180 Comments seated and supine 170 deg discomfort FF seated but can do full range PT-OP-M Strength Start: 04/28/24 15:22 Freq: Status: Active Protocol: Document 07/07/24 14:37 [facility] (Rec: 07/07/24 15:21 [facility] [id number]) Shoulder Strength Shoulder Manual Muscle Testing Right Flexion 4- Good- Extension 4- Good- Abduction (C5) 4+ Good+ External Rotation 4- Good- Internal Rotation 5 Normal Left Flexion 4- Good- Extension 4- Good- Abduction (C5) 4+ Good+ External Rotation 4- Good- Internal Rotation 5 Normal Elbow/Forearm Strength Elbow and Forearm Manual Muscle Testing Right Flexion (C6) 4+ Good+ Extension (C7) 4 Good Left Flexion (C6) 5 Normal Extension (C7) 4+ Good+ Hip Strength Hip Manual Muscle Testing Right Flexion (L2) 3+ Fair+ Abduction 4 Good External Rotation 3+ Fair+ Internal Rotation 4+ Good+ Comments pain to R knee w/ER Left Flexion (L2) 4- Good- Abduction 4 Good External Rotation 3+ Fair+ Internal Rotation 4+ Good+ Comments pain to L mcnulty at point of touch w/ER Knee Strength Knee Manual Muscle Testing Right Flexion (S2) 3+ Fair+ Extension (L3) 4- Good- Left Flexion (S2) 4- Good- Extension (L3) 4+ Good+ Ankle/Foot Strength Ankle and Foot Manual Muscle Testing Right Dorsiflexion (L4) 4+ Good+ Plantarflexion (S1) 4+ Good+ Left Dorsiflexion (L4) 4+ Good+ Plantarflexion (S1) 4+ Good+ Comments seated PF testing B PT-OP-Q Treatments Start: 04/28/24 15:22 Freq: Status: Active Protocol: Document 07/31/24 13:47 AB (Rec: 07/31/24 14:39 AB [id number]) Therapeutic Exercises Sidelying Exercises open book Side bilateral Resistance AROM Reps/Minutes 5 ea, Comments post manual Sitting Exercises seated trunk rotation Sitting Exercise Name AROM Side bilateral Equipment Used HEP Reps/Minutes X10 each side Comments post manual Standing Exercises cat cow Standing Exercise Name counter plank position, on forearms Side bilateral Reps/Minutes X10 Comments Verbal and visual cues HEP review bent row Standing Exercise Name one UE on mat at counter height Side bilateral Equipment Used HEP, ( row with band discontinued Reps/Minutes X10 each UE Comments verbal and visual cues Manual Therapy Treatment Soft Tissue Mobilization L shld Body Location B shoulders post cuff UT/lev scap Mobilization Type Cross-Friction,Rolling Intensity/Depth Moderate Body Position Sidelying R lower leg Body Location R peroneal Mobilization Type Rolling Intensity/Depth light Body Position seated Comments gentle mid to distal tendon superior lateral malleolus spine Body Location thoracic paraspinal Mobilization Type Cross-Friction,Rolling, Sustained Pressure,Other Intensity/Depth Moderate Body Position Sidelying Joint Mobilizations scapular Joint bilateral scapula Direction into depression and adduction Body Position Sidelying Reps/Duration X10 each direction each shoulder thoracic Joint T7.8,9,10 Direction AP andcranially Grade II Body Position Sitting Comments with trunk rotation right PT-OP-T Assessment and Plan Start: 04/28/24 15:22 Freq: Status: Active Protocol: Document 07/31/24 13:47 AB (Rec: 07/31/24 14:39 AB [id number]) Physical Therapy Assessment Goals balance Impairment FGA Rn Clinical Research Goal (LTG) Improved FGA to at least 24 to show low risk for falls LTG Duration 09/04 ROM Short Term Goal (STG) Pt will be able to do B shoulder flex to at least 100 deg actively STG Duration achieved 06/09 Care Home Goal (LTG) Pt will be able to do B shoulder flex to at least 140 deg actively w/o inc pain to allow greater ease w/overhead tasks. 06/09-some discomfort w/ overhead ROM but can move overhead 07/02/24: MET GOAL: BUE 180 deg AROM with little tension on L shld supine and R shld seated at end feel but not pain. LTG Duration 07/21 GOAL MET 07/02/24 activities Short Term Goal (STG) Pt will be able to tolerate biking 15 min a day w/o inc pain or significant fatigue for rest of day to show improved activity tolerance. 05/28-has been doing 5 min every now and then-feels okay. 06/09-10 min a day 07/02/24: able to ride stationary bike before went out of town for 15-20 min with no pain but hasn't tried since back. 07/07-hasn't been biking recently d/t R knee pain and feeling wiped out the last 5 days, was doing every other day for 20 min prior to that STG Duration 08/06 Care Home Goal (LTG) Pt will be able to resume walking daily about 1 mile w/o inc pain or feeling of unsteadiness or weakness 05/28-Has been able to do 4 blocks twice a day -increased some; did 1 mile walk 1x and felt okay-depends on day 07/02/24 was walking about 15- 20 min with no back pain but having R ankle pain. 07/07-20 min walks but not fast; ankle sore LTG Duration 09/19 strength Short Term Goal (STG) Pt will be indep w/HEP STG Duration achieved advancing as able Care Home Goal (LTG) Pt will score at least 4+/5 on all UE and LE MMT B to show improved strength to allow greater ease of function 05/28-improving 07/02/24 added side hip abd and segmental bridging for core and LE strengthening support balance and mobility. 07/07-improving LTG Duration 09/15 DGI Impairment Short Term Goal (STG) Pt will improve DGI score to at least 17/24 to show improved balance and dec risk for falls. 05/28- STG Duration achieved 06/09 Care Home Goal (LTG) Pt will improve DGI score to at least 20/24 to show improved balance and low risk for falls. LTG Duration achieved 06/09 Assessment Summary Assessment Zana rates thoracic pain 11/02 end of session. Visible increase in AROM trunk rotation seated left and right , not yet WNL. Physical Therapy Plan Frequency and Duration Frequency of Treatment 2x/Week Duration of treatment (weeks) 10 Plan of Care Start Date 07/07/24 Plan of Care End Date 09/15/24 Next Visit Focus/Plan Next Note Type Treatment Note Next Visit Plan advance balance and strength as able scapular protraction and depression
--- NOTE | 2024-08-05 16:34 | PT.OTN ---
Current Diagnoses Other chronic pain (08/05/24) Spondylosis without myelopathy or radiculopathy, lumbar region (08/05/24) Other intervertebral disc degeneration, lumbar region (08/05/24) Cervicalgia (08/05/24) Low back pain, unspecified (08/05/24) Anesthesia of skin (08/05/24) Paresthesia of skin (08/05/24) Unsteadiness on feet (08/05/24) Other symptoms and signs involving the musculoskeletal system (08/05/24) Physical Therapy Treatment Note PT-OP-A Visit Information Start: 04/28/24 15:22 Freq: Status: Active Protocol: Document 08/05/24 12:57 AB (Rec: 08/05/24 16:34 AB [id number]) Out-Patient Physical Therapy Visit Information Visit Information Visit Type Treatment Note Visit Start Time 13:50 Visit Stop Time 14:33 Visit Number 21 Number of EXECUTIVE PRODUCER Visits 3 PT-OP-B Current Condition Start: 04/28/24 15:22 Freq: Status: Active Protocol: Document 04/28/24 15:22 [facility] (Rec: 04/28/24 17:18 [facility] [id number]) Current Condition History of Current Condition Onset Date about 2 months w/hx prior Current Complaints back pain, thoracic pain, body stiffness History of Current Condition Pt has had a lot of stress d/t past week having memory issues, and DIL having MCKEON and possible fluid in brain and dog being sick. Pt reports significant weakness in BUEs and LEs. Limited overhead B UE ROM. cervical, thoracic and lumbar MRIs looked okay except degenerative changes. MRI of head WNL. Pt reports last wed was really weak and legs collapse and she crumpled around garbage can and she couldn't straighten back up and had to lift her up . She has tingling for about 3 weeks where it was waking her up at night. It felt like pulsating from upper back into fingertips and all the way to toes. That has lessened some. Feel like trunk is going to be frozen. Has been not exercising but is exhausted. Did try the bike slowly and not for long and can do it. Has not been getting good sleep at night. Trying to keep busy since feels like if she stops, she will get too weak. Sometimes between shoulder blades and in lumbar area is painful. Pt had GI issues in spring and winter including nausesa but it is gone. Still having instances of voice change. She saw provider at w/spray up nose and throat. She has to go to GI doctor and has an appt Jun 10 along w/ May 26 Neurologist appt. Has a couple tests set for mid May. Pt walks dog 2x/day still but only 3 blocks and slowly and uses cane. Pt typically I w/o AD. Cane use inside most of the time now. Treatment Goals Patient/Caregiver Goals improve strength; back to exercising PT-OP-C Subjective Start: 04/28/24 15:22 Freq: Status: Active Protocol: Document 08/05/24 12:57 AB (Rec: 08/05/24 16:34 AB [id number]) OP-PT Subjective Patient Comments Patient Comments Patient reports she is the same, rates pain 2/10. PT-OP-E Functional Tests Start: 04/28/24 15:22 Freq: Status: Active Protocol: Document 07/07/24 14:37 [facility] (Rec: 07/07/24 15:21 [facility] [id number]) Functional Tests Functional Gait Assessment Score 20/30 PT-OP-F Manual Assessment Start: 04/28/24 15:22 Freq: Status: Active Protocol: Document 04/28/24 15:22 [facility] (Rec: 04/28/24 17:18 [facility] [id number]) Manual Assessments Other Manual Assessments Other Manual Assessments brachioradialis: R 0; L 1+; triceps 0 B; biceps 1+ B; knee ext & plantar flexion reflexes: L 1+; R 2+ PT-OP-G Mobility & Gait Start: 04/28/24 15:22 Freq: Status: Active Protocol: Document 04/28/24 15:22 [facility] (Rec: 04/28/24 17:18 [facility] [id number]) OP Mobility Evaluation Transfers Sit to Stand slow and must use UEs; dec control OP Gait Assessment Comments Gait Comments dec stance time B w/ lat leaning; slow gait and dec push off B-evidence for imbalance Stair Climbing Evaluation Comments Stair Climbing Comments use of rail w/recip step up/ down; significantly dec control down PT-OP-K Range of Motion Start: 04/28/24 15:22 Freq: Status: Active Protocol: Document 07/02/24 09:51 SP (Rec: 07/02/24 10:48 SP [id number]) Shoulder Goniometric Range of Motion Shoulder L Shoulder ROM WFL Yes Testing Position Supine Flexion 180 Comments seated and supine 180 deg AROM light tension end range but no painful supine r Shoulder ROM WFL Yes Testing Position Supine Flexion 180 Comments seated and supine 170 deg discomfort FF seated but can do full range PT-OP-M Strength Start: 04/28/24 15:22 Freq: Status: Active Protocol: Document 07/07/24 14:37 [facility] (Rec: 07/07/24 15:21 [facility] [id number]) Shoulder Strength Shoulder Manual Muscle Testing Right Flexion 4- Good- Extension 4- Good- Abduction (C5) 4+ Good+ External Rotation 4- Good- Internal Rotation 5 Normal Left Flexion 4- Good- Extension 4- Good- Abduction (C5) 4+ Good+ External Rotation 4- Good- Internal Rotation 5 Normal Elbow/Forearm Strength Elbow and Forearm Manual Muscle Testing Right Flexion (C6) 4+ Good+ Extension (C7) 4 Good Left Flexion (C6) 5 Normal Extension (C7) 4+ Good+ Hip Strength Hip Manual Muscle Testing Right Flexion (L2) 3+ Fair+ Abduction 4 Good External Rotation 3+ Fair+ Internal Rotation 4+ Good+ Comments pain to R knee w/ER Left Flexion (L2) 4- Good- Abduction 4 Good External Rotation 3+ Fair+ Internal Rotation 4+ Good+ Comments pain to L mcnulty at point of touch w/ER Knee Strength Knee Manual Muscle Testing Right Flexion (S2) 3+ Fair+ Extension (L3) 4- Good- Left Flexion (S2) 4- Good- Extension (L3) 4+ Good+ Ankle/Foot Strength Ankle and Foot Manual Muscle Testing Right Dorsiflexion (L4) 4+ Good+ Plantarflexion (S1) 4+ Good+ Left Dorsiflexion (L4) 4+ Good+ Plantarflexion (S1) 4+ Good+ Comments seated PF testing B PT-OP-Q Treatments Start: 04/28/24 15:22 Freq: Status: Active Protocol: Document 08/05/24 12:57 AB (Rec: 08/05/24 16:34 AB [id number]) Therapeutic Exercises Supine Exercises serratus punch Supine Exercise Name AROM Side bilateral Reps/Minutes X10 Comments verbal and visual cues Sidelying Exercises open book Side bilateral Resistance AROM Reps/Minutes 5 ea, Comments post manual Sitting Exercises seated trunk rotation Sitting Exercise Name AROM Side bilateral Equipment Used HEP Reps/Minutes X10 each side Comments post manual side sit to upright Sitting Exercise Name HEP Side bilateral Reps/Minutes X6 Comments monitored for pain Standing Exercises scapular depression Side bilateral Resistance level 2 band Reps/Minutes X10 paloff press Side bilateral Resistance level2 latex free band Reps/Minutes X6 with band to right Comments limited by pain R side Other Exercises Thread the needle Other Exercise Name counter plank position Side bilateral Reps/Minutes 5X Comments Verbal and visual cues Manual Therapy Treatment Soft Tissue Mobilization L shld Body Location B shoulders post cuff UT/lev scap Mobilization Type Cross-Friction,Rolling Intensity/Depth Moderate Body Position Sidelying spine Body Location thoracic paraspinal Mobilization Type Cross-Friction,Rolling, Sustained Pressure,Other Intensity/Depth Moderate Body Position Sidelying Joint Mobilizations scapular Joint bilateral scapula Direction into depression and adduction Body Position Sidelying Reps/Duration X10 each direction each shoulder thoracic Joint T7.8,9,10 Direction AP andcranially Grade II Body Position Sitting Comments with trunk rotation right PT-OP-T Assessment and Plan Start: 04/28/24 15:22 Freq: Status: Active Protocol: Document 08/05/24 12:57 AB (Rec: 08/05/24 16:34 AB [id number]) Physical Therapy Assessment Goals balance Impairment FGA 2030 Feedlot Manager Goal (LTG) Improved FGA to at least 24 to show low risk for falls LTG Duration 09/04 ROM Short Term Goal (STG) Pt will be able to do B shoulder flex to at least 100 deg actively STG Duration achieved 06/09 Feedlot Manager Goal (LTG) Pt will be able to do B shoulder flex to at least 140 deg actively w/o inc pain to allow greater ease w/overhead tasks. 06/09-some discomfort w/ overhead ROM but can move overhead 07/02/24: MET GOAL: BUE 180 deg AROM with little tension on L shld supine and R shld seated at end feel but not pain. LTG Duration 07/21 GOAL MET 07/02/24 activities Short Term Goal (STG) Pt will be able to tolerate biking 15 min a day w/o inc pain or significant fatigue for rest of day to show improved activity tolerance. 05/28-has been doing 5 min every now and then-feels okay. 06/09-10 min a day 07/02/24: able to ride stationary bike before went out of town for 15-20 min with no pain but hasn't tried since back. 07/07-hasn't been biking recently d/t R knee pain and feeling wiped out the last 5 days, was doing every other day for 20 min prior to that STG Duration 08/06 Feedlot Manager Goal (LTG) Pt will be able to resume walking daily about 1 mile w/o inc pain or feeling of unsteadiness or weakness 05/28-Has been able to do 4 blocks twice a day -increased some; did 1 mile walk 1x and felt okay-depends on day 07/02/24 was walking about 15- 20 min with no back pain but having R ankle pain. 07/07-20 min walks but not fast; ankle sore LTG Duration 09/19 strength Short Term Goal (STG) Pt will be indep w/HEP STG Duration achieved advancing as able Feedlot Manager Goal (LTG) Pt will score at least 4+/5 on all UE and LE MMT B to show improved strength to allow greater ease of function 05/28-improving 07/02/24 added side hip abd and segmental bridging for core and LE strengthening support balance and mobility. 07/07-improving LTG Duration 09/15 DGI Impairment Short Term Goal (STG) Pt will improve DGI score to at least 17/24 to show improved balance and dec risk for falls. 05/28-16 STG Duration achieved 06/09 Feedlot Manager Goal (LTG) Pt will improve DGI score to at least 20/24 to show improved balance and low risk for falls. LTG Duration achieved 06/09 Assessment Summary Assessment 2/10 pain, slight increase in seated trunk rotation end of session compared to start of session. Assess desmond to thread the needle, possibly add scap depression to HEP. Physical Therapy Plan Frequency and Duration Frequency of Treatment 2x/Week Duration of treatment (weeks) 10 Plan of Care Start Date 07/07/24 Plan of Care End Date 09/15/24 Next Visit Focus/Plan Next Note Type Treatment Note Next Visit Plan advance balance and strength as able scapular protraction and depression
--- NOTE | 2024-08-10 15:50 | PT.OTN ---
Current Diagnoses Other chronic pain (08/10/24) Spondylosis without myelopathy or radiculopathy, lumbar region (08/10/24) Other intervertebral disc degeneration, lumbar region (08/10/24) Cervicalgia (08/10/24) Low back pain, unspecified (08/10/24) Anesthesia of skin (08/10/24) Paresthesia of skin (08/10/24) Unsteadiness on feet (08/10/24) Other symptoms and signs involving the musculoskeletal system (08/10/24) Physical Therapy Treatment Note PT-OP-A Visit Information Start: 04/28/24 15:22 Freq: Status: Active Protocol: Document 08/10/24 14:36 [facility] (Rec: 08/10/24 15:50 [facility] [id number]) Out-Patient Physical Therapy Visit Information Visit Information Visit Type Progress Note Visit Start Time 14:37 Visit Stop Time 15:17 Visit Number 22 Number of LABORER POWERHOUSE Visits 0 PT-OP-B Current Condition Start: 04/28/24 15:22 Freq: Status: Active Protocol: Document 04/28/24 15:22 [facility] (Rec: 04/28/24 17:18 [facility] [id number]) Current Condition History of Current Condition Onset Date about 2 months w/hx prior Current Complaints back pain, thoracic pain, body stiffness History of Current Condition Pt has had a lot of stress d/t past week having memory issues, and DIL having MCKEON and possible fluid in brain and dog being sick. Pt reports significant weakness in BUEs and LEs. Limited overhead B UE ROM. cervical, thoracic and lumbar MRIs looked okay except degenerative changes. MRI of head WNL. Pt reports last wed was really weak and legs collapse and she crumpled around garbage can and she couldn't straighten back up and had to lift her up . She has tingling for about 3 weeks where it was waking her up at night. It felt like pulsating from upper back into fingertips and all the way to toes. That has lessened some. Feel like trunk is going to be frozen. Has been not exercising but is exhausted. Did try the bike slowly and not for long and can do it. Has not been getting good sleep at night. Trying to keep busy since feels like if she stops, she will get too weak. Sometimes between shoulder blades and in lumbar area is painful. Pt had GI issues in spring and winter including nausesa but it is gone. Still having instances of voice change. She saw provider at w/spray up nose and throat. She has to go to GI doctor and has an appt Jun 10 along w/ May 26 Neurologist appt. Has a couple tests set for mid May. Pt walks dog 2x/day still but only 3 blocks and slowly and uses cane. Pt typically I w/o AD. Cane use inside most of the time now. Treatment Goals Patient/Caregiver Goals improve strength; back to exercising PT-OP-C Subjective Start: 04/28/24 15:22 Freq: Status: Active Protocol: Document 08/10/24 14:36 [facility] (Rec: 08/10/24 15:50 [facility] [id number]) OP-PT Subjective Patient Comments Patient Comments pt reports she her back has been sore the past 10 days PT-OP-E Functional Tests Start: 04/28/24 15:22 Freq: Status: Active Protocol: Document 07/07/24 14:37 [facility] (Rec: 07/07/24 15:21 [facility] [id number]) Functional Tests Functional Gait Assessment Score 20/30 PT-OP-F Manual Assessment Start: 04/28/24 15:22 Freq: Status: Active Protocol: Document 04/28/24 15:22 [facility] (Rec: 04/28/24 17:18 [facility] [id number]) Manual Assessments Other Manual Assessments Other Manual Assessments brachioradialis: R 0; L 1+; triceps 0 B; biceps 1+ B; knee ext & plantar flexion reflexes: L 1+; R 2+ PT-OP-G Mobility & Gait Start: 04/28/24 15:22 Freq: Status: Active Protocol: Document 04/28/24 15:22 [facility] (Rec: 04/28/24 17:18 [facility] [id number]) OP Mobility Evaluation Transfers Sit to Stand slow and must use UEs; dec control OP Gait Assessment Comments Gait Comments dec stance time B w/ lat leaning; slow gait and dec push off B-evidence for imbalance Stair Climbing Evaluation Comments Stair Climbing Comments use of rail w/recip step up/ down; significantly dec control down PT-OP-K Range of Motion Start: 04/28/24 15:22 Freq: Status: Active Protocol: Document 07/02/24 09:51 SP (Rec: 07/02/24 10:48 SP [id number]) Shoulder Goniometric Range of Motion Shoulder L Shoulder ROM WFL Yes Testing Position Supine Flexion 180 Comments seated and supine 180 deg AROM light tension end range but no painful supine r Shoulder ROM WFL Yes Testing Position Supine Flexion 180 Comments seated and supine 170 deg discomfort FF seated but can do full range PT-OP-M Strength Start: 04/28/24 15:22 Freq: Status: Active Protocol: Document 08/10/24 14:36 [facility] (Rec: 08/10/24 15:50 [facility] [id number]) Shoulder Strength Shoulder Manual Muscle Testing Right Flexion 4+ Good+ Extension 5 Normal Abduction (C5) 4+ Good+ External Rotation 4 Good Internal Rotation 5 Normal Left Flexion 4 Good Extension 5 Normal Abduction (C5) 4+ Good+ External Rotation 4+ Good+ Internal Rotation 5 Normal Elbow/Forearm Strength Elbow and Forearm Manual Muscle Testing Right Flexion (C6) 4+ Good+ Left Flexion (C6) 5 Normal Extension (C7) 5 Normal Hip Strength Hip Manual Muscle Testing Right Flexion (L2) 4- Good- Abduction 4 Good External Rotation 3+ Fair+ Internal Rotation 4+ Good+ Comments pain to R knee w/ER Left Flexion (L2) 4- Good- Abduction 4 Good External Rotation 3+ Fair+ Internal Rotation 4+ Good+ Knee Strength Knee Manual Muscle Testing Right Flexion (S2) 4- Good- Extension (L3) 4+ Good+ Left Flexion (S2) 4+ Good+ Extension (L3) 4+ Good+ Ankle/Foot Strength Ankle and Foot Manual Muscle Testing Right Dorsiflexion (L4) 4+ Good+ Plantarflexion (S1) 4+ Good+ Comments able to do 2 partial range heel raises Left Dorsiflexion (L4) 5 Normal Plantarflexion (S1) 4+ Good+ Comments seated PF testing B able to do 4 partial range heel raises PT-OP-Q Treatments Start: 04/28/24 15:22 Freq: Status: Active Protocol: Document 08/10/24 14:36 [facility] (Rec: 08/10/24 15:50 [facility] [id number]) Therapeutic Exercises Sitting Exercises seated trunk rotation Sitting Exercise Name AROM Side bilateral Equipment Used HEP Reps/Minutes x5 Comments w/deep breath Standing Exercises cat cow Standing Exercise Name counter plank position, on forearms Side bilateral Reps/Minutes 5x Comments stopped d/t pain and cont only ilene pose bent row Standing Exercise Name one UE on mat at counter height Side bilateral Equipment Used HEP, Reps/Minutes 2X10 each UE Comments verbal and visual cues for scap Other Exercises isometrics Other Exercise Name BUE and LE mMT Manual Therapy Treatment Consent Patient gave verbal consent for manual Yes treatment Soft Tissue Mobilization spine Body Location thoracic paraspinal Mobilization Type Cross-Friction,Rolling, Sustained Pressure,Other Intensity/Depth Moderate Body Position Sitting Joint Mobilizations thoracic Grade II Body Position Sitting Comments Transverse L T7-9; transverse T5-6 R Neuro Re-Education Treatment Other Activities testing Comments FGA PT-OP-T Assessment and Plan Start: 04/28/24 15:22 Freq: Status: Active Protocol: Document 08/10/24 14:36 [facility] (Rec: 08/10/24 15:50 [facility] [id number]) Physical Therapy Assessment Goals balance Impairment FGA 30 Income Tax Auditor Goal (LTG) Improved FGA to at least 24 to show low risk for falls LTG Duration achieved 08/10 ROM Short Term Goal (STG) Pt will be able to do B shoulder flex to at least 100 deg actively STG Duration achieved 06/09 Income Tax Auditor Goal (LTG) Pt will be able to do B shoulder flex to at least 140 deg actively w/o inc pain to allow greater ease w/overhead tasks. 06/09-some discomfort w/ overhead ROM but can move overhead 07/02/24: MET GOAL: BUE 180 deg AROM with little tension on L shld supine and R shld seated at end feel but not pain. LTG Duration 07/21 GOAL MET 07/02/24 activities Short Term Goal (STG) Pt will be able to tolerate biking 15 min a day w/o inc pain or significant fatigue for rest of day to show improved activity tolerance. 05/28-has been doing 5 min every now and then-feels okay. 06/09-10 min a day 07/02/24: able to ride stationary bike before went out of town for 15-20 min with no pain but hasn't tried since back. 07/07-hasn't been biking recently d/t R knee pain and feeling wiped out the last 5 days, was doing every other day for 20 min prior to that 08/10-limited time d/t holidays but doing more activity around house STG Duration 08/06 Fpc Goal (LTG) Pt will be able to resume walking daily about 1 mile w/o inc pain or feeling of unsteadiness or weakness 05/28-Has been able to do 4 blocks twice a day -increased some; did 1 mile walk 1x and felt okay-depends on day 07/02/24 was walking about 15- 20 min with no back pain but having R ankle pain. 07/07-20 min walks but not fast; ankle sore 08/10-limited time d/t holidays but doing more activity around house LTG Duration 09/19 strength Short Term Goal (STG) Pt will be indep w/HEP STG Duration achieved advancing as able Income Tax Auditor Goal (LTG) Pt will score at least 4+/5 on all UE and LE MMT B to show improved strength to allow greater ease of function 05/28-improving 07/02/24 added side hip abd and segmental bridging for core and LE strengthening support balance and mobility. 07/07-improving 08/10-cont improvement LTG Duration 09/15 DGI Impairment Short Term Goal (STG) Pt will improve DGI score to at least 17/24 to show improved balance and dec risk for falls. 05/28- STG Duration achieved 06/09 Fpc Goal (LTG) Pt will improve DGI score to at least 20/24 to show improved balance and low risk for falls. LTG Duration achieved 06/09 Assessment Summary Assessment pt progressing well w/PT but most notably core weak likely relating to back pain and LEs cont to be weak. seh has dec thoracic spine motion with limits her movement patterns overall. Dec fall risk w/FGA score today. Cont PT for strength and mobility Physical Therapy Plan Frequency and Duration Frequency of Treatment 2x/Week Duration of treatment (weeks) 10 Plan of Care Start Date 07/07/24 Plan of Care End Date 09/15/24 Next Visit Focus/Plan Next Note Type Treatment Note Next Visit Plan advance strength of core in seated adn standing as able gentle w/thoracic mobility as pt very stiff and flares up
--- NOTE | 2024-08-13 17:26 | PT.OTN ---
Current Diagnoses Other chronic pain (08/13/24) Spondylosis without myelopathy or radiculopathy, lumbar region (08/13/24) Other intervertebral disc degeneration, lumbar region (08/13/24) Cervicalgia (08/13/24) Low back pain, unspecified (08/13/24) Anesthesia of skin (08/13/24) Paresthesia of skin (08/13/24) Unsteadiness on feet (08/13/24) Other symptoms and signs involving the musculoskeletal system (08/13/24) Physical Therapy Treatment Note PT-OP-A Visit Information Start: 04/28/24 15:22 Freq: Status: Active Protocol: Document 08/13/24 13:51 (Rec: 08/13/24 14:36 [id number]) Out-Patient Physical Therapy Visit Information Visit Information Visit Type Treatment Note Visit Start Time 13:47 Visit Stop Time 14:27 Visit Number 23 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 Pt reports significant weakness in BUEs and LEs. Limited overhead B UE ROM. cervical, thoracic and lumbar MRIs looked okay except degenerative changes. MRI of head WNL. Pt reports last wed was really weak and legs collapse and she crumpled around garbage can and she couldn't straighten back up and had to lift her up . She has tingling for about 3 weeks where it was waking her up at night. It felt like pulsating from upper back into fingertips and all the way to toes. That has lessened some. Feel like trunk is going to be frozen. Has been not exercising but is exhausted. Did try the bike slowly and not for long and can do it. Has not been getting good sleep at night. Trying to keep busy since feels like if she stops, she will get too weak. Sometimes between shoulder blades and in lumbar area is painful. Pt had GI issues in spring and winter including nausesa but it is gone. Still having instances of voice change. She saw provider at w/spray up nose and throat. She has to go to GI doctor and has an appt Jun 10 along w/ May 26 Neurologist appt. Has a couple tests set for mid May. Pt walks dog 2x/day still but only 3 blocks and slowly and uses cane. Pt typically I w/o AD. Cane use inside most of the time now. Treatment Goals Patient/Caregiver Goals improve strength; back to exercising PT-OP-C Subjective Start: 04/28/24 15:22 Freq: Status: Active Protocol: Document 08/13/24 13:51 (Rec: 08/13/24 14:36 [id number]) OP-PT Subjective Patient Comments Patient Comments Pt reports back pain 3/10 today, constant pain. PT-OP-E Functional Tests Start: 04/28/24 15:22 Freq: Status: Active Protocol: Document 07/07/24 14:37 [facility] (Rec: 07/07/24 15:21 [facility] [id number]) Functional Tests Functional Gait Assessment Score 20/30 PT-OP-F Manual Assessment Start: 04/28/24 15:22 Freq: Status: Active Protocol: Document 04/28/24 15:22 [facility] (Rec: 04/28/24 17:18 [facility] [id number]) Manual Assessments Other Manual Assessments Other Manual Assessments brachioradialis: R 0; L 1+; triceps 0 B; biceps 1+ B; knee ext & plantar flexion reflexes: L 1+; R 2+ PT-OP-G Mobility & Gait Start: 04/28/24 15:22 Freq: Status: Active Protocol: Document 04/28/24 15:22 [facility] (Rec: 04/28/24 17:18 [facility] [id number]) OP Mobility Evaluation Transfers Sit to Stand slow and must use UEs; dec control OP Gait Assessment Comments Gait Comments dec stance time B w/ lat leaning; slow gait and dec push off B-evidence for imbalance Stair Climbing Evaluation Comments Stair Climbing Comments use of rail w/recip step up/ down; significantly dec control down PT-OP-K Range of Motion Start: 04/28/24 15:22 Freq: Status: Active Protocol: Document 07/02/24 09:51 SP (Rec: 07/02/24 10:48 SP [id number]) Shoulder Goniometric Range of Motion Shoulder L Shoulder ROM WFL Yes Testing Position Supine Flexion 180 Comments seated and supine 180 deg AROM light tension end range but no painful supine r Shoulder ROM WFL Yes Testing Position Supine Flexion 180 Comments seated and supine 170 deg discomfort FF seated but can do full range PT-OP-M Strength Start: 04/28/24 15:22 Freq: Status: Active Protocol: Document 08/10/24 14:36 [facility] (Rec: 08/10/24 15:50 [facility] [id number]) Shoulder Strength Shoulder Manual Muscle Testing Right Flexion 4+ Good+ Extension 5 Normal Abduction (C5) 4+ Good+ External Rotation 4 Good Internal Rotation 5 Normal Left Flexion 4 Good Extension 5 Normal Abduction (C5) 4+ Good+ External Rotation 4+ Good+ Internal Rotation 5 Normal Elbow/Forearm Strength Elbow and Forearm Manual Muscle Testing Right Flexion (C6) 4+ Good+ Left Flexion (C6) 5 Normal Extension (C7) 5 Normal Hip Strength Hip Manual Muscle Testing Right Flexion (L2) 4- Good- Abduction 4 Good External Rotation 3+ Fair+ Internal Rotation 4+ Good+ Comments pain to R knee w/ER Left Flexion (L2) 4- Good- Abduction 4 Good External Rotation 3+ Fair+ Internal Rotation 4+ Good+ Knee Strength Knee Manual Muscle Testing Right Flexion (S2) 4- Good- Extension (L3) 4+ Good+ Left Flexion (S2) 4+ Good+ Extension (L3) 4+ Good+ Ankle/Foot Strength Ankle and Foot Manual Muscle Testing Right Dorsiflexion (L4) 4+ Good+ Plantarflexion (S1) 4+ Good+ Comments able to do 2 partial range heel raises Left Dorsiflexion (L4) 5 Normal Plantarflexion (S1) 4+ Good+ Comments seated PF testing B able to do 4 partial range heel raises PT-OP-Q Treatments Start: 04/28/24 15:22 Freq: Status: Active Protocol: Document 08/13/24 13:51 SW (Rec: 08/13/24 14:36 SW [id number]) Gym Equipment Shuttle Recovery Bilateral Heel Raises Resistance 37# Reps/Time 20 Unilateral Squats Details full range Resistance 37# Reps/Time 15 B Bilateral Squats Resistance 75# (navy) Reps/Time 20 Therapeutic Ball seated Exercise Details 1.Pelvic tilts 2. LAQ 3. Marches 4. rock backs Body Position Seated Reps/Duration 1. x3' 2. x10 ea 3. x10 ea 4. x10 Therapeutic Exercises Sitting Exercises Core Sitting Exercise Name Seated sit backs Side bilateral Reps/Minutes x10 Comments cues to engage core prior to initiating movement Standing Exercises paloff press Standing Exercise Name No press today, step outs Side bilateral Resistance level2 latex free band Reps/Minutes x7 ea Comments some pain with longer lever, tolerated band close to trunk well Manual Therapy Treatment Consent Patient gave verbal consent for manual Yes treatment Soft Tissue Mobilization spine Body Location thoracic paraspinal Mobilization Type Cross-Friction,Rolling, Sustained Pressure,Other Intensity/Depth Moderate Body Position Sitting Self-Care/Home Management Treatment Education Patient Education Pain Management Other Education Pt education on modalities for symptom management. Educated pt on physiological effects of ice/heat and parameters for home. PT-OP-T Assessment and Plan Start: 04/28/24 15:22 Freq: Status: Active Protocol: Document 08/13/24 13:51 (Rec: 08/13/24 14:36 [id number]) Physical Therapy Assessment Goals balance Impairment FGA Nursing Home Goal (LTG) Improved FGA to at least 24 to show low risk for falls LTG Duration achieved 08/10 ROM Short Term Goal (STG) Pt will be able to do B shoulder flex to at least 100 deg actively STG Duration achieved 06/09 Nursing Home Goal (LTG) Pt will be able to do B shoulder flex to at least 140 deg actively w/o inc pain to allow greater ease w/overhead tasks. 06/09-some discomfort w/ overhead ROM but can move overhead 07/02/24: MET GOAL: BUE 180 deg AROM with little tension on L shld supine and R shld seated at end feel but not pain. LTG Duration 07/21 GOAL MET 07/02/24 activities Short Term Goal (STG) Pt will be able to tolerate biking 15 min a day w/o inc pain or significant fatigue for rest of day to show improved activity tolerance. 05/28-has been doing 5 min every now and then-feels okay. 06/09-10 min a day 07/02/24: able to ride stationary bike before went out of town for 15-20 min with no pain but hasn't tried since back. 07/07-hasn't been biking recently d/t R knee pain and feeling wiped out the last 5 days, was doing every other day for 20 min prior to that 08/10-limited time d/t holidays but doing more activity around house STG Duration 08/06 Nursing Home Goal (LTG) Pt will be able to resume walking daily about 1 mile w/o inc pain or feeling of unsteadiness or weakness 05/28-Has been able to do 4 blocks twice a day -increased some; did 1 mile walk 1x and felt okay-depends on day 07/02/24 was walking about 15- 20 min with no back pain but having R ankle pain. 07/07-20 min walks but not fast; ankle sore 08/10-limited time d/t holidays but doing more activity around house LTG Duration 09/19 strength Short Term Goal (STG) Pt will be indep w/HEP STG Duration achieved advancing as able Nursing Home Goal (LTG) Pt will score at least 4+/5 on all UE and LE MMT B to show improved strength to allow greater ease of function 05/28-improving 07/02/24 added side hip abd and segmental bridging for core and LE strengthening support balance and mobility. 07/07-improving 08/10-cont improvement LTG Duration 09/15 DGI Impairment 1424 Short Term Goal (STG) Pt will improve DGI score to at least 17/24 to show improved balance and dec risk for falls. 05/28-16 STG Duration achieved 06/09 Nursing Home Goal (LTG) Pt will improve DGI score to at least 20/24 to show improved balance and low risk for falls. LTG Duration achieved 06/09 Assessment Summary Assessment Session focused on core stabilization this session. Progressed pt to core stabilization on therapy ball today, pt tolerated well, challenged with balance especially with changing SUJATHA with marching. Physical Therapy Plan Frequency and Duration Frequency of Treatment 2x/Week Duration of treatment (weeks) 10 Plan of Care Start Date 07/07/24 Plan of Care End Date 09/15/24 Therapeutic Interventions Therapeutic Interventions Balance Training,Canalithic Repositioning,Coordination Training,Gait Training,Home Exercise Program,Joint Mobilizations,Manual Therapy, Neuromuscular Re-education, Patient/Caregiver Education, Self-Care/Home Management,Soft Tissue Mobilization,Taping, Therapeutic Activities, Therapeutic Exercises, Vestibular Rehabilitation Modalities Cold Pack/Ice Massage,Electric Stimulation,Hot Packs Other Referrals/Consults Referrals/Consults Recommended Discussed with pt calling physician to have R lateral ankle assessed for pain having weightbearing activities. Next Visit Focus/Plan Next Note Type Treatment Note Next Visit Plan Assess pt back pain level, pt may benefit from continued manual for symptom reduction. Followup on tolerance if pt was able to initiate modalites for pain at home and offer post session prn. advance strength of core in seated adn standing as able gentle w/thoracic mobility as pt very stiff and flares up
--- NOTE | 2024-08-25 11:34 | PT.OTN ---
Current Diagnoses Other chronic pain (08/25/24) Spondylosis without myelopathy or radiculopathy, lumbar region (08/25/24) Other intervertebral disc degeneration, lumbar region (08/25/24) Cervicalgia (08/25/24) Low back pain, unspecified (08/25/24) Anesthesia of skin (08/25/24) Paresthesia of skin (08/25/24) Unsteadiness on feet (08/25/24) Other symptoms and signs involving the musculoskeletal system (08/25/24) Physical Therapy Treatment Note PT-OP-A Visit Information Start: 04/28/24 15:22 Freq: Status: Active Protocol: Document 08/25/24 07:30 [facility] (Rec: 08/25/24 11:33 [facility] [id number]) Out-Patient Physical Therapy Visit Information Visit Information Visit Type Treatment Note Visit Start Time 07:32 Visit Stop Time 08:12 Visit Number 24 (11/02) Number of TOP FORMER Visits 0 PT-OP-B Current Condition Start: 04/28/24 15:22 Freq: Status: Active Protocol: Document 04/28/24 15:22 [facility] (Rec: 04/28/24 17:18 [facility] [id number]) Current Condition History of Current Condition Onset Date about 2 months w/hx prior Current Complaints back pain, thoracic pain, body stiffness History of Current Condition Pt has had a lot of stress d/t past week having memory issues, and DIL having MCKEON and possible fluid in brain and dog being sick. Pt reports significant weakness in BUEs and LEs. Limited overhead B UE ROM. cervical, thoracic and lumbar MRIs looked okay except degenerative changes. MRI of head WNL. Pt reports last wed was really weak and legs collapse and she crumpled around garbage can and she couldn't straighten back up and had to lift her up . She has tingling for about 3 weeks where it was waking her up at night. It felt like pulsating from upper back into fingertips and all the way to toes. That has lessened some. Feel like trunk is going to be frozen. Has been not exercising but is exhausted. Did try the bike slowly and not for long and can do it. Has not been getting good sleep at night. Trying to keep busy since feels like if she stops, she will get too weak. Sometimes between shoulder blades and in lumbar area is painful. Pt had GI issues in spring and winter including nausesa but it is gone. Still having instances of voice change. She saw provider at w/spray up nose and throat. She has to go to GI doctor and has an appt Jun 10 along w/ May 26 Neurologist appt. Has a couple tests set for mid May. Pt walks dog 2x/day still but only 3 blocks and slowly and uses cane. Pt typically I w/o AD. Cane use inside most of the time now. Treatment Goals Patient/Caregiver Goals improve strength; back to exercising PT-OP-C Subjective Start: 04/28/24 15:22 Freq: Status: Active Protocol: Document 08/25/24 07:30 [facility] (Rec: 08/25/24 11:33 [facility] [id number]) OP-PT Subjective Patient Comments Patient Comments Pt has been out of town w/ Sgroupleskids so didn't do any walks or biking. She did her exercises but was active w/ kids and taking care of their home. L knee is really sore for about 2 weeks. Back has constant 2/10 pain. PT-OP-E Functional Tests Start: 04/28/24 15:22 Freq: Status: Active Protocol: Document 07/07/24 14:37 [facility] (Rec: 07/07/24 15:21 [facility] [id number]) Functional Tests Functional Gait Assessment Score 20/30 PT-OP-F Manual Assessment Start: 04/28/24 15:22 Freq: Status: Active Protocol: Document 04/28/24 15:22 [facility] (Rec: 04/28/24 17:18 [facility] [id number]) Manual Assessments Other Manual Assessments Other Manual Assessments brachioradialis: R 0; L 1+; triceps 0 B; biceps 1+ B; knee ext & plantar flexion reflexes: L 1+; R 2+ PT-OP-G Mobility & Gait Start: 04/28/24 15:22 Freq: Status: Active Protocol: Document 04/28/24 15:22 [facility] (Rec: 04/28/24 17:18 [facility] [id number]) OP Mobility Evaluation Transfers Sit to Stand slow and must use UEs; dec control OP Gait Assessment Comments Gait Comments dec stance time B w/ lat leaning; slow gait and dec push off B-evidence for imbalance Stair Climbing Evaluation Comments Stair Climbing Comments use of rail w/recip step up/ down; significantly dec control down PT-OP-K Range of Motion Start: 04/28/24 15:22 Freq: Status: Active Protocol: Document 07/02/24 09:51 SP (Rec: 07/02/24 10:48 SP [id number]) Shoulder Goniometric Range of Motion Shoulder L Shoulder ROM WFL Yes Testing Position Supine Flexion 180 Comments seated and supine 180 deg AROM light tension end range but no painful supine r Shoulder ROM WFL Yes Testing Position Supine Flexion 180 Comments seated and supine 170 deg discomfort FF seated but can do full range PT-OP-M Strength Start: 04/28/24 15:22 Freq: Status: Active Protocol: Document 08/10/24 14:36 [facility] (Rec: 08/10/24 15:50 [facility] [id number]) Shoulder Strength Shoulder Manual Muscle Testing Right Flexion 4+ Good+ Extension 5 Normal Abduction (C5) 4+ Good+ External Rotation 4 Good Internal Rotation 5 Normal Left Flexion 4 Good Extension 5 Normal Abduction (C5) 4+ Good+ External Rotation 4+ Good+ Internal Rotation 5 Normal Elbow/Forearm Strength Elbow and Forearm Manual Muscle Testing Right Flexion (C6) 4+ Good+ Left Flexion (C6) 5 Normal Extension (C7) 5 Normal Hip Strength Hip Manual Muscle Testing Right Flexion (L2) 4- Good- Abduction 4 Good External Rotation 3+ Fair+ Internal Rotation 4+ Good+ Comments pain to R knee w/ER Left Flexion (L2) 4- Good- Abduction 4 Good External Rotation 3+ Fair+ Internal Rotation 4+ Good+ Knee Strength Knee Manual Muscle Testing Right Flexion (S2) 4- Good- Extension (L3) 4+ Good+ Left Flexion (S2) 4+ Good+ Extension (L3) 4+ Good+ Ankle/Foot Strength Ankle and Foot Manual Muscle Testing Right Dorsiflexion (L4) 4+ Good+ Plantarflexion (S1) 4+ Good+ Comments able to do 2 partial range heel raises Left Dorsiflexion (L4) 5 Normal Plantarflexion (S1) 4+ Good+ Comments seated PF testing B able to do 4 partial range heel raises PT-OP-Q Treatments Start: 04/28/24 15:22 Freq: Status: Active Protocol: Document 08/25/24 07:30 [facility] (Rec: 08/25/24 11:33 [facility] [id number]) Gym Equipment Therapeutic Ball seated Body Position Seated Comments 1.Pelvic tilts x15 2.pelvic circles x10 B 3. Marches x15 4. V sit back x10 B 5. rotation w/Lvl 1 band x10 B Manual Therapy Treatment Consent Patient gave verbal consent for manual Yes treatment Soft Tissue Mobilization LLE Mobilization Type Rolling Intensity/Depth Moderate Body Position Supine Comments scar tissue, patellar tendon Joint Mobilizations knee Comments 1. L patellofemoral sup, inf, med 2. AP tibia and femur c/r 3. PA tibia 4. AP proximal fib Taping L knee Body Location 2 fans for swelling on L knee Treatment Focus swelling Type of Tape Kinesio Tape PT-OP-T Assessment and Plan Start: 04/28/24 15:22 Freq: Status: Active Protocol: Document 08/25/24 07:30 [facility] (Rec: 08/25/24 11:33 [facility] [id number]) Physical Therapy Assessment Goals balance Impairment FGA Geodetic Engineer Goal (LTG) Improved FGA to at least 24 to show low risk for falls LTG Duration achieved 08/10 ROM Short Term Goal (STG) Pt will be able to do B shoulder flex to at least 100 deg actively STG Duration achieved 06/09 Geodetic Engineer Goal (LTG) Pt will be able to do B shoulder flex to at least 140 deg actively w/o inc pain to allow greater ease w/overhead tasks. 06/09-some discomfort w/ overhead ROM but can move overhead 07/02/24: MET GOAL: BUE 180 deg AROM with little tension on L shld supine and R shld seated at end feel but not pain. LTG Duration 07/21 GOAL MET 07/02/24 activities Short Term Goal (STG) Pt will be able to tolerate biking 15 min a day w/o inc pain or significant fatigue for rest of day to show improved activity tolerance. 05/28-has been doing 5 min every now and then-feels okay. 06/09-10 min a day 07/02/24: able to ride stationary bike before went out of town for 15-20 min with no pain but hasn't tried since back. 07/07-hasn't been biking recently d/t R knee pain and feeling wiped out the last 5 days, was doing every other day for 20 min prior to that 08/10-limited time d/t holidays but doing more activity around house STG Duration 08/06 Geodetic Engineer Goal (LTG) Pt will be able to resume walking daily about 1 mile w/o inc pain or feeling of unsteadiness or weakness 05/28-Has been able to do 4 blocks twice a day -increased some; did 1 mile walk 1x and felt okay-depends on day 07/02/24 was walking about 15- 20 min with no back pain but having R ankle pain. 07/07-20 min walks but not fast; ankle sore 08/10-limited time d/t holidays but doing more activity around house LTG Duration 09/19 strength Short Term Goal (STG) Pt will be indep w/HEP STG Duration achieved advancing as able Half-Way Goal (LTG) Pt will score at least 4+/5 on all UE and LE MMT B to show improved strength to allow greater ease of function 05/28-improving 07/02/24 added side hip abd and segmental bridging for core and LE strengthening support balance and mobility. 07/07-improving 08/10-cont improvement LTG Duration 09/15 DGI Impairment Short Term Goal (STG) Pt will improve DGI score to at least 17/24 to show improved balance and dec risk for falls. 05/28- STG Duration achieved 06/09 Geodetic Engineer Goal (LTG) Pt will improve DGI score to at least 20/24 to show improved balance and low risk for falls. LTG Duration achieved 06/09 Assessment Summary Assessment Pt had swelling to L knee likely affecting her pain today and encoruaged to ice and use bike. She tolerated core exercsies well but does demonstrate weakness Physical Therapy Plan Frequency and Duration Frequency of Treatment 2x/Week Duration of treatment (weeks) 10 Plan of Care Start Date 07/07/24 Plan of Care End Date 09/15/24 Next Visit Focus/Plan Next Note Type Treatment Note Next Visit Plan cont to work on LE strength and manual to improve ability to build strength
--- NOTE | 2024-08-27 10:32 | PT.OTN ---
Current Diagnoses Other chronic pain (08/27/24) Spondylosis without myelopathy or radiculopathy, lumbar region (08/27/24) Other intervertebral disc degeneration, lumbar region (08/27/24) Cervicalgia (08/27/24) Low back pain, unspecified (08/27/24) Anesthesia of skin (08/27/24) Paresthesia of skin (08/27/24) Unsteadiness on feet (08/27/24) Other symptoms and signs involving the musculoskeletal system (08/27/24) Physical Therapy Treatment Note PT-OP-A Visit Information Start: 04/28/24 15:22 Freq: Status: Active Protocol: Document 08/27/24 09:52 [facility] (Rec: 08/27/24 10:32 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 (Rec: 04/28/24 17:18 [facility] [id number]) Current Condition History of Current Condition Onset Date about 2 months w/hx prior Current Complaints back pain, thoracic pain, body stiffness History of Current Condition Pt has had a lot of stress d/t past week having memory issues, and DIL having MCKEON and possible fluid in brain and dog being sick. Pt reports significant weakness in BUEs and LEs. Limited overhead B UE ROM. cervical, thoracic and lumbar MRIs looked okay except degenerative changes. MRI of head WNL. Pt reports last wed was really weak and legs collapse and she crumpled around garbage can and she couldn't straighten back up and had to lift her up . She has tingling for about 3 weeks where it was waking her up at night. It felt like pulsating from upper back into fingertips and all the way to toes. That has lessened some. Feel like trunk is going to be frozen. Has been not exercising but is exhausted. Did try the bike slowly and not for long and can do it. Has not been getting good sleep at night. Trying to keep busy since feels like if she stops, she will get too weak. Sometimes between shoulder blades and in lumbar area is painful. Pt had GI issues in spring and winter including nausesa but it is gone. Still having instances of voice change. She saw provider at w/spray up nose and throat. She has to go to GI doctor and has an appt Jun 10 along w/ May 26 Neurologist appt. Has a couple tests set for mid May. Pt walks dog 2x/day still but only 3 blocks and slowly and uses cane. Pt typically I w/o AD. Cane use inside most of the time now. Treatment Goals Patient/Caregiver Goals improve strength; back to exercising PT-OP-C Subjective Start: 04/28/24 15:22 Freq: Status: Active Protocol: Document 08/27/24 09:52 [facility] (Rec: 08/27/24 10:32 [facility] [id number]) OP-PT Subjective Patient Comments Patient Comments Pt reports She biked 5 min on and wed did 15 min PT-OP-E Functional Tests Start: 04/28/24 15:22 Freq: Status: Active Protocol: Document 07/07/24 14:37 [facility] (Rec: 07/07/24 15:21 [facility] [id number]) Functional Tests Functional Gait Assessment Score 20/30 PT-OP-F Manual Assessment Start: 04/28/24 15:22 Freq: Status: Active Protocol: Document 04/28/24 15:22 [facility] (Rec: 04/28/24 17:18 [facility] [id number]) Manual Assessments Other Manual Assessments Other Manual Assessments brachioradialis: R 0; L 1+; triceps 0 B; biceps 1+ B; knee ext & plantar flexion reflexes: L 1+; R 2+ PT-OP-G Mobility & Gait Start: 04/28/24 15:22 Freq: Status: Active Protocol: Document 04/28/24 15:22 [facility] (Rec: 04/28/24 17:18 [facility] [id number]) OP Mobility Evaluation Transfers Sit to Stand slow and must use UEs; dec control OP Gait Assessment Comments Gait Comments dec stance time B w/ lat leaning; slow gait and dec push off B-evidence for imbalance Stair Climbing Evaluation Comments Stair Climbing Comments use of rail w/recip step up/ down; significantly dec control down PT-OP-K Range of Motion Start: 04/28/24 15:22 Freq: Status: Active Protocol: Document 07/02/24 09:51 [facility] (Rec: 07/02/24 10:48 [facility] [id number]) Shoulder Goniometric Range of Motion Shoulder L Shoulder ROM WFL Yes Testing Position Supine Flexion 180 Comments seated and supine 180 deg AROM light tension end range but no painful supine r Shoulder ROM WFL Yes Testing Position Supine Flexion 180 Comments seated and supine 170 deg discomfort FF seated but can do full range PT-OP-M Strength Start: 04/28/24 15:22 Freq: Status: Active Protocol: Document 08/10/24 14:36 [facility] (Rec: 08/10/24 15:50 [facility] [id number]) Shoulder Strength Shoulder Manual Muscle Testing Right Flexion 4+ Good+ Extension 5 Normal Abduction (C5) 4+ Good+ External Rotation 4 Good Internal Rotation 5 Normal Left Flexion 4 Good Extension 5 Normal Abduction (C5) 4+ Good+ External Rotation 4+ Good+ Internal Rotation 5 Normal Elbow/Forearm Strength Elbow and Forearm Manual Muscle Testing Right Flexion (C6) 4+ Good+ Left Flexion (C6) 5 Normal Extension (C7) 5 Normal Hip Strength Hip Manual Muscle Testing Right Flexion (L2) 4- Good- Abduction 4 Good External Rotation 3+ Fair+ Internal Rotation 4+ Good+ Comments pain to R knee w/ER Left Flexion (L2) 4- Good- Abduction 4 Good External Rotation 3+ Fair+ Internal Rotation 4+ Good+ Knee Strength Knee Manual Muscle Testing Right Flexion (S2) 4- Good- Extension (L3) 4+ Good+ Left Flexion (S2) 4+ Good+ Extension (L3) 4+ Good+ Ankle/Foot Strength Ankle and Foot Manual Muscle Testing Right Dorsiflexion (L4) 4+ Good+ Plantarflexion (S1) 4+ Good+ Comments able to do 2 partial range heel raises Left Dorsiflexion (L4) 5 Normal Plantarflexion (S1) 4+ Good+ Comments seated PF testing B able to do 4 partial range heel raises PT-OP-Q Treatments Start: 04/28/24 15:22 Freq: Status: Active Protocol: Document 08/27/24 09:52 [facility] (Rec: 08/27/24 10:32 [facility] [id number]) Gym Equipment Therapeutic Ball seated Body Position Seated Comments 1.Pelvic tilts x15 2.pelvic circles x10 B 3. Marches x15 4. V sit back x12 B 5. rotation w/Lvl 1 band x10 B 6.kicks x15 B Therapeutic Exercises Sitting Exercises breathing Reps/Minutes 15 Comments hands on lower ribs to cue for rib expansion and not back ext Standing Exercises paloff press Side bilateral Resistance orange band (2 bands), green band (2 bands) Reps/Minutes 10 B ea resistance heel raises Standing Exercise Name 1. DL up and SL eccentric down 2. SL Side bilateral Reps/Minutes 10 ea Manual Therapy Treatment Consent Patient gave verbal consent for manual Yes treatment Soft Tissue Mobilization Lats Body Location B lats, tspine paraspines, LT, rhomobids Mobilization Type Rolling Joint Mobilizations thoracic Joint transverse L T7 Grade II Body Position Sidelying PT-OP-T Assessment and Plan Start: 04/28/24 15:22 Freq: Status: Active Protocol: Document 08/27/24 09:52 [facility] (Rec: 08/27/24 10:32 [facility] [id number]) Physical Therapy Assessment Goals balance Impairment FGA 20/30 Fdc Goal (LTG) Improved FGA to at least 24 to show low risk for falls LTG Duration achieved 08/10 ROM Short Term Goal (STG) Pt will be able to do B shoulder flex to at least 100 deg actively STG Duration achieved 06/09 Ocular Pathologist Goal (LTG) Pt will be able to do B shoulder flex to at least 140 deg actively w/o inc pain to allow greater ease w/overhead tasks. 06/09-some discomfort w/ overhead ROM but can move overhead 07/02/24: MET GOAL: BUE 180 deg AROM with little tension on L shld supine and R shld seated at end feel but not pain. LTG Duration 07/21 GOAL MET 07/02/24 activities Short Term Goal (STG) Pt will be able to tolerate biking 15 min a day w/o inc pain or significant fatigue for rest of day to show improved activity tolerance. 05/28-has been doing 5 min every now and then-feels okay. 06/09-10 min a day 07/02/24: able to ride stationary bike before went out of town for 15-20 min with no pain but hasn't tried since back. 07/07-hasn't been biking recently d/t R knee pain and feeling wiped out the last 5 days, was doing every other day for 20 min prior to that 08/10-limited time d/t holidays but doing more activity around house STG Duration 08/06 Ocular Pathologist Goal (LTG) Pt will be able to resume walking daily about 1 mile w/o inc pain or feeling of unsteadiness or weakness 05/28-Has been able to do 4 blocks twice a day -increased some; did 1 mile walk 1x and felt okay-depends on day 07/02/24 was walking about 15- 20 min with no back pain but having R ankle pain. 07/07-20 min walks but not fast; ankle sore 08/10-limited time d/t holidays but doing more activity around house LTG Duration 09/19 strength Short Term Goal (STG) Pt will be indep w/HEP STG Duration achieved advancing as able Ocular Pathologist Goal (LTG) Pt will score at least 4+/5 on all UE and LE MMT B to show improved strength to allow greater ease of function 05/28-improving 07/02/24 added side hip abd and segmental bridging for core and LE strengthening support balance and mobility. 07/07-improving 08/10-cont improvement LTG Duration 09/15 DGI Impairment Short Term Goal (STG) Pt will improve DGI score to at least 17/24 to show improved balance and dec risk for falls. 05/28- STG Duration achieved 06/09 Fdc Goal (LTG) Pt will improve DGI score to at least 20/24 to show improved balance and low risk for falls. LTG Duration achieved 06/09 Assessment Summary Assessment Pt did well wth core exercises and did not report inc pain during exercises. Difficulty w /breathing pattern and encourage dto work on ribcage expansion w/breathing. Physical Therapy Plan Frequency and Duration Frequency of Treatment 2x/Week Duration of treatment (weeks) 10 Plan of Care Start Date 07/07/24 Plan of Care End Date 09/15/24 Therapeutic Interventions Therapeutic Interventions Balance Training,Canalithic Repositioning,Coordination Training,Gait Training,Home Exercise Program,Joint Mobilizations,Manual Therapy, Neuromuscular Re-education, Patient/Caregiver Education, Self-Care/Home Management,Soft Tissue Mobilization,Taping, Therapeutic Activities, Therapeutic Exercises, Vestibular Rehabilitation Modalities Cold Pack/Ice Massage,Electric Stimulation,Hot Packs Next Visit Focus/Plan Next Note Type Treatment Note Next Visit Plan cont to work on LE strength and manual to improve ability to build strength
--- NOTE | 2024-08-31 13:03 | PT.OTN ---
Current Diagnoses Other chronic pain (08/31/24) Spondylosis without myelopathy or radiculopathy, lumbar region (08/31/24) Other intervertebral disc degeneration, lumbar region (08/31/24) Cervicalgia (08/31/24) Low back pain, unspecified (08/31/24) Anesthesia of skin (08/31/24) Paresthesia of skin (08/31/24) Unsteadiness on feet (08/31/24) Other symptoms and signs involving the musculoskeletal system (08/31/24) Physical Therapy Treatment Note PT-OP-A Visit Information Start: 04/28/24 15:22 Freq: Status: Active Protocol: Document 08/31/24 09:00 [facility] (Rec: 08/31/24 13:02 [facility] [id number]) Out-Patient Physical Therapy Visit Information Visit Information Visit Type Treatment Note Visit Start Time 09:03 Visit Stop Time 09:43 Visit Number 26 (01/02) 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 Pt reports significant weakness in BUEs and LEs. Limited overhead B UE ROM. cervical, thoracic and lumbar MRIs looked okay except degenerative changes. MRI of head WNL. Pt reports last wed was really weak and legs collapse and she crumpled around garbage can and she couldn't straighten back up and had to lift her up . She has tingling for about 3 weeks where it was waking her up at night. It felt like pulsating from upper back into fingertips and all the way to toes. That has lessened some. Feel like trunk is going to be frozen. Has been not exercising but is exhausted. Did try the bike slowly and not for long and can do it. Has not been getting good sleep at night. Trying to keep busy since feels like if she stops, she will get too weak. Sometimes between shoulder blades and in lumbar area is painful. Pt had GI issues in spring and winter including nausesa but it is gone. Still having instances of voice change. She saw provider at w/spray up nose and throat. She has to go to GI doctor and has an appt Jun 10 along w/ May 26 Neurologist appt. Has a couple tests set for mid May. Pt walks dog 2x/day still but only 3 blocks and slowly and uses cane. Pt typically I w/o AD. Cane use inside most of the time now. Treatment Goals Patient/Caregiver Goals improve strength; back to exercising PT-OP-C Subjective Start: 04/28/24 15:22 Freq: Status: Active Protocol: Document 08/31/24 09:00 [facility] (Rec: 08/31/24 13:02 [facility] [id number]) OP-PT Subjective Patient Comments Patient Comments Pt reports 25 min on a bike daily the past couple of days. DIdn't sleep last night d/t dog not feeling well. Pt has been sore in R calf. L knee still seems swollen PT-OP-E Functional Tests Start: 04/28/24 15:22 Freq: Status: Active Protocol: Document 07/07/24 14:37 [facility] (Rec: 07/07/24 15:21 [facility] [id number]) Functional Tests Functional Gait Assessment Score 20/30 PT-OP-F Manual Assessment Start: 04/28/24 15:22 Freq: Status: Active Protocol: Document 04/28/24 15:22 [facility] (Rec: 04/28/24 17:18 [facility] [id number]) Manual Assessments Other Manual Assessments Other Manual Assessments brachioradialis: R 0; L 1+; triceps 0 B; biceps 1+ B; knee ext & plantar flexion reflexes: L 1+; R 2+ PT-OP-G Mobility & Gait Start: 04/28/24 15:22 Freq: Status: Active Protocol: Document 04/28/24 15:22 [facility] (Rec: 04/28/24 17:18 [facility] [id number]) OP Mobility Evaluation Transfers Sit to Stand slow and must use UEs; dec control OP Gait Assessment Comments Gait Comments dec stance time B w/ lat leaning; slow gait and dec push off B-evidence for imbalance Stair Climbing Evaluation Comments Stair Climbing Comments use of rail w/recip step up/ down; significantly dec control down PT-OP-K Range of Motion Start: 04/28/24 15:22 Freq: Status: Active Protocol: Document 07/02/24 09:51 [facility] (Rec: 07/02/24 10:48 [facility] [id number]) Shoulder Goniometric Range of Motion Shoulder L Shoulder ROM WFL Yes Testing Position Supine Flexion 180 Comments seated and supine 180 deg AROM light tension end range but no painful supine r Shoulder ROM WFL Yes Testing Position Supine Flexion 180 Comments seated and supine 170 deg discomfort FF seated but can do full range PT-OP-M Strength Start: 04/28/24 15:22 Freq: Status: Active Protocol: Document 08/10/24 14:36 [facility] (Rec: 08/10/24 15:50 [facility] [id number]) Shoulder Strength Shoulder Manual Muscle Testing Right Flexion 4+ Good+ Extension 5 Normal Abduction (C5) 4+ Good+ External Rotation 4 Good Internal Rotation 5 Normal Left Flexion 4 Good Extension 5 Normal Abduction (C5) 4+ Good+ External Rotation 4+ Good+ Internal Rotation 5 Normal Elbow/Forearm Strength Elbow and Forearm Manual Muscle Testing Right Flexion (C6) 4+ Good+ Left Flexion (C6) 5 Normal Extension (C7) 5 Normal Hip Strength Hip Manual Muscle Testing Right Flexion (L2) 4- Good- Abduction 4 Good External Rotation 3+ Fair+ Internal Rotation 4+ Good+ Comments pain to R knee w/ER Left Flexion (L2) 4- Good- Abduction 4 Good External Rotation 3+ Fair+ Internal Rotation 4+ Good+ Knee Strength Knee Manual Muscle Testing Right Flexion (S2) 4- Good- Extension (L3) 4+ Good+ Left Flexion (S2) 4+ Good+ Extension (L3) 4+ Good+ Ankle/Foot Strength Ankle and Foot Manual Muscle Testing Right Dorsiflexion (L4) 4+ Good+ Plantarflexion (S1) 4+ Good+ Comments able to do 2 partial range heel raises Left Dorsiflexion (L4) 5 Normal Plantarflexion (S1) 4+ Good+ Comments seated PF testing B able to do 4 partial range heel raises PT-OP-Q Treatments Start: 04/28/24 15:22 Freq: Status: Active Protocol: Document 08/31/24 09:00 [facility] (Rec: 08/31/24 13:02 [facility] [id number]) Gym Equipment Therapeutic Ball seated Body Position Seated Comments 1.Pelvic tilts x15 2.pelvic circles x10 B 3. Marches x15 4. V sit back x12 B 5. rotation w/Lvl 1 band x10 B w/paloff press first 6.kicks x15 B 7. DL chop down diagonal x10 B Therapeutic Exercises Sitting Exercises seated trunk rotation Sitting Exercise Name AROM Side bilateral Equipment Used HEP Reps/Minutes x5 Comments w/deep breath at end ea hold Standing Exercises step ups Standing Exercise Name 1. fwd 2. lat Side bilateral Equipment Used 1.8 in step 2. 6 in step Reps/Minutes 12 ea Comments to SL-cues control descent L stretch Standing Exercise Name 1. B on step gastroc 2. soleus standing 3. gastroc standing Reps/Minutes 1 min ea Comments inc time for cues for position Manual Therapy Treatment Joint Mobilizations knee Comments L PA tibia Taping L knee Body Location 2 fans for swelling on L knee Treatment Focus swelling Type of Tape Kinesio Tape PT-OP-T Assessment and Plan Start: 04/28/24 15:22 Freq: Status: Active Protocol: Document 08/31/24 09:00 [facility] (Rec: 08/31/24 13:02 [facility] [id number]) Physical Therapy Assessment Goals balance Impairment FGA 2030 Satin Finisher Goal (LTG) Improved FGA to at least 24 to show low risk for falls LTG Duration achieved 08/10 ROM Short Term Goal (STG) Pt will be able to do B shoulder flex to at least 100 deg actively STG Duration achieved 06/09 Satin Finisher Goal (LTG) Pt will be able to do B shoulder flex to at least 140 deg actively w/o inc pain to allow greater ease w/overhead tasks. 06/09-some discomfort w/ overhead ROM but can move overhead 07/02/24: MET GOAL: BUE 180 deg AROM with little tension on L shld supine and R shld seated at end feel but not pain. LTG Duration 07/21 GOAL MET 07/02/24 activities Short Term Goal (STG) Pt will be able to tolerate biking 15 min a day w/o inc pain or significant fatigue for rest of day to show improved activity tolerance. 05/28-has been doing 5 min every now and then-feels okay. 06/09-10 min a day 07/02/24: able to ride stationary bike before went out of town for 15-20 min with no pain but hasn't tried since back. 07/07-hasn't been biking recently d/t R knee pain and feeling wiped out the last 5 days, was doing every other day for 20 min prior to that 08/10-limited time d/t holidays but doing more activity around house STG Duration 08/06 Fdc Goal (LTG) Pt will be able to resume walking daily about 1 mile w/o inc pain or feeling of unsteadiness or weakness 05/28-Has been able to do 4 blocks twice a day -increased some; did 1 mile walk 1x and felt okay-depends on day 07/02/24 was walking about 15- 20 min with no back pain but having R ankle pain. 07/07-20 min walks but not fast; ankle sore 08/10-limited time d/t holidays but doing more activity around house LTG Duration 09/19 strength Short Term Goal (STG) Pt will be indep w/HEP STG Duration achieved advancing as able Fdc Goal (LTG) Pt will score at least 4+/5 on all UE and LE MMT B to show improved strength to allow greater ease of function 05/28-improving 07/02/24 added side hip abd and segmental bridging for core and LE strengthening support balance and mobility. 07/07-improving 08/10-cont improvement LTG Duration 09/15 DGI Impairment 14/24 Short Term Goal (STG) Pt will improve DGI score to at least 17/24 to show improved balance and dec risk for falls. 05/28- STG Duration achieved 06/09 Fdc Goal (LTG) Pt will improve DGI score to at least 20/24 to show improved balance and low risk for falls. LTG Duration achieved 06/09 Assessment Summary Assessment Pt did well with exercsies w/o reports of inc pain. Dec control w/step down aspect of steps. Physical Therapy Plan Frequency and Duration Frequency of Treatment 2x/Week Duration of treatment (weeks) 10 Plan of Care Start Date 07/07/24 Plan of Care End Date 09/15/24 Next Visit Focus/Plan Next Note Type Treatment Note Next Visit Plan cont to work on LE strength and manual to improve ability to build strength
--- NOTE | 2024-09-03 10:58 | PT.OTN ---
Current Diagnoses Other chronic pain (09/03/24) Spondylosis without myelopathy or radiculopathy, lumbar region (09/03/24) Other intervertebral disc degeneration, lumbar region (09/03/24) Cervicalgia (09/03/24) Low back pain, unspecified (09/03/24) Anesthesia of skin (09/03/24) Paresthesia of skin (09/03/24) Unsteadiness on feet (09/03/24) Other symptoms and signs involving the musculoskeletal system (09/03/24) Physical Therapy Treatment Note PT-OP-A Visit Information Start: 04/28/24 15:22 Freq: Status: Active Protocol: Document 09/03/24 09:06 [facility] (Rec: 09/03/24 10:58 [facility] [id number]) Out-Patient Physical Therapy Visit Information Visit Information Visit Type Treatment Note Visit Start Time 09:06 Visit Stop Time 09:46 Visit Number 27 (02/02) Number of TURN OUT Visits 0 PT-OP-B Current Condition Start: 04/28/24 15:22 Freq: Status: Active Protocol: Document 04/28/24 15:22 [facility] (Rec: 04/28/24 17:18 [facility] [id number]) Current Condition History of Current Condition Onset Date about 2 months w/hx prior Current Complaints back pain, thoracic pain, body stiffness History of Current Condition Pt has had a lot of stress d/t past week having memory issues, and DIL having MCKEON and possible fluid in brain and dog being sick. Pt reports significant weakness in BUEs and LEs. Limited overhead B UE ROM. cervical, thoracic and lumbar MRIs looked okay except degenerative changes. MRI of head WNL. Pt reports last wed was really weak and legs collapse and she crumpled around garbage can and she couldn't straighten back up and had to lift her up . She has tingling for about 3 weeks where it was waking her up at night. It felt like pulsating from upper back into fingertips and all the way to toes. That has lessened some. Feel like trunk is going to be frozen. Has been not exercising but is exhausted. Did try the bike slowly and not for long and can do it. Has not been getting good sleep at night. Trying to keep busy since feels like if she stops, she will get too weak. Sometimes between shoulder blades and in lumbar area is painful. Pt had GI issues in spring and winter including nausesa but it is gone. Still having instances of voice change. She saw provider at w/spray up nose and throat. She has to go to GI doctor and has an appt Jun 10 along w/ May 26 Neurologist appt. Has a couple tests set for mid May. Pt walks dog 2x/day still but only 3 blocks and slowly and uses cane. Pt typically I w/o AD. Cane use inside most of the time now. Treatment Goals Patient/Caregiver Goals improve strength; back to exercising PT-OP-C Subjective Start: 04/28/24 15:22 Freq: Status: Active Protocol: Document 09/03/24 09:06 [facility] (Rec: 09/03/24 10:58 [facility] [id number]) OP-PT Subjective Patient Comments Patient Comments Pt reports she was workng on her boat yesterday and her knees and back were sore after yesterday so did not bike but did ice and is better but still sore today PT-OP-E Functional Tests Start: 04/28/24 15:22 Freq: Status: Active Protocol: Document 07/07/24 14:37 [facility] (Rec: 07/07/24 15:21 [facility] [id number]) Functional Tests Functional Gait Assessment Score 20/30 PT-OP-F Manual Assessment Start: 04/28/24 15:22 Freq: Status: Active Protocol: Document 04/28/24 15:22 [facility] (Rec: 04/28/24 17:18 [facility] [id number]) Manual Assessments Other Manual Assessments Other Manual Assessments brachioradialis: R 0; L 1+; triceps 0 B; biceps 1+ B; knee ext & plantar flexion reflexes: L 1+; R 2+ PT-OP-G Mobility & Gait Start: 04/28/24 15:22 Freq: Status: Active Protocol: Document 04/28/24 15:22 [facility] (Rec: 04/28/24 17:18 [facility] [id number]) OP Mobility Evaluation Transfers Sit to Stand slow and must use UEs; dec control OP Gait Assessment Comments Gait Comments dec stance time B w/ lat leaning; slow gait and dec push off B-evidence for imbalance Stair Climbing Evaluation Comments Stair Climbing Comments use of rail w/recip step up/ down; significantly dec control down PT-OP-K Range of Motion Start: 04/28/24 15:22 Freq: Status: Active Protocol: Document 07/02/24 09:51 [facility] (Rec: 07/02/24 10:48 SP [id number]) Shoulder Goniometric Range of Motion Shoulder L Shoulder ROM WFL Yes Testing Position Supine Flexion 180 Comments seated and supine 180 deg AROM light tension end range but no painful supine r Shoulder ROM WFL Yes Testing Position Supine Flexion 180 Comments seated and supine 170 deg discomfort FF seated but can do full range PT-OP-M Strength Start: 04/28/24 15:22 Freq: Status: Active Protocol: Document 08/10/24 14:36 [facility] (Rec: 08/10/24 15:50 [facility] [id number]) Shoulder Strength Shoulder Manual Muscle Testing Right Flexion 4+ Good+ Extension 5 Normal Abduction (C5) 4+ Good+ External Rotation 4 Good Internal Rotation 5 Normal Left Flexion 4 Good Extension 5 Normal Abduction (C5) 4+ Good+ External Rotation 4+ Good+ Internal Rotation 5 Normal Elbow/Forearm Strength Elbow and Forearm Manual Muscle Testing Right Flexion (C6) 4+ Good+ Left Flexion (C6) 5 Normal Extension (C7) 5 Normal Hip Strength Hip Manual Muscle Testing Right Flexion (L2) 4- Good- Abduction 4 Good External Rotation 3+ Fair+ Internal Rotation 4+ Good+ Comments pain to R knee w/ER Left Flexion (L2) 4- Good- Abduction 4 Good External Rotation 3+ Fair+ Internal Rotation 4+ Good+ Knee Strength Knee Manual Muscle Testing Right Flexion (S2) 4- Good- Extension (L3) 4+ Good+ Left Flexion (S2) 4+ Good+ Extension (L3) 4+ Good+ Ankle/Foot Strength Ankle and Foot Manual Muscle Testing Right Dorsiflexion (L4) 4+ Good+ Plantarflexion (S1) 4+ Good+ Comments able to do 2 partial range heel raises Left Dorsiflexion (L4) 5 Normal Plantarflexion (S1) 4+ Good+ Comments seated PF testing B able to do 4 partial range heel raises PT-OP-Q Treatments Start: 04/28/24 15:22 Freq: Status: Active Protocol: Document 09/03/24 09:06 [facility] (Rec: 09/03/24 10:58 [facility] [id number]) Gym Equipment Therapeutic Ball seated Body Position Seated Comments 1.Pelvic tilts x15 2.pelvic circles x10 B 3. Marches x15 4. V sit back x12 B 5. rotation w/Lvl 1rane band x10 B w/paloff press first 6.kicks x15 B 7. DL chop down diagonal x15 B orange band Therapeutic Exercises Sitting Exercises breathing Reps/Minutes 4 min Comments hands on lower ribs to cue for rib expansion and belly expansion seated trunk rotation Sitting Exercise Name AROM Side bilateral Equipment Used HEP Reps/Minutes x3 B Comments w/2 deep breaths during hold Manual Therapy Treatment Consent Patient gave verbal consent for manual Yes treatment Soft Tissue Mobilization spine Body Location thoracic paraspinal Mobilization Type Cross-Friction,Rolling, Sustained Pressure,Other Intensity/Depth Moderate Body Position Sitting Joint Mobilizations thoracic Comments transverse L T8-9 ribs Comments internal torsion R rib 7 PT-OP-T Assessment and Plan Start: 04/28/24 15:22 Freq: Status: Active Protocol: Document 09/03/24 09:06 [facility] (Rec: 09/03/24 10:58 [facility] [id number]) Physical Therapy Assessment Goals balance Impairment FGA Vending Mechanic Goal (LTG) Improved FGA to at least 24 to show low risk for falls LTG Duration achieved 08/10 ROM Short Term Goal (STG) Pt will be able to do B shoulder flex to at least 100 deg actively STG Duration achieved 06/09 Vending Mechanic Goal (LTG) Pt will be able to do B shoulder flex to at least 140 deg actively w/o inc pain to allow greater ease w/overhead tasks. 06/09-some discomfort w/ overhead ROM but can move overhead 07/02/24: MET GOAL: BUE 180 deg AROM with little tension on L shld supine and R shld seated at end feel but not pain. LTG Duration 07/21 GOAL MET 07/02/24 activities Short Term Goal (STG) Pt will be able to tolerate biking 15 min a day w/o inc pain or significant fatigue for rest of day to show improved activity tolerance. 05/28-has been doing 5 min every now and then-feels okay. 06/09-10 min a day 07/02/24: able to ride stationary bike before went out of town for 15-20 min with no pain but hasn't tried since back. 07/07-hasn't been biking recently d/t R knee pain and feeling wiped out the last 5 days, was doing every other day for 20 min prior to that 08/10-limited time d/t holidays but doing more activity around house STG Duration 08/06 Mcc Goal (LTG) Pt will be able to resume walking daily about 1 mile w/o inc pain or feeling of unsteadiness or weakness 05/28-Has been able to do 4 blocks twice a day -increased some; did 1 mile walk 1x and felt okay-depends on day 07/02/24 was walking about 15- 20 min with no back pain but having R ankle pain. 07/07-20 min walks but not fast; ankle sore 08/10-limited time d/t holidays but doing more activity around house LTG Duration 09/19 strength Short Term Goal (STG) Pt will be indep w/HEP STG Duration achieved advancing as able Vending Mechanic Goal (LTG) Pt will score at least 4+/5 on all UE and LE MMT B to show improved strength to allow greater ease of function 05/28-improving 07/02/24 added side hip abd and segmental bridging for core and LE strengthening support balance and mobility. 07/07-improving 08/10-cont improvement LTG Duration 09/15 DGI Impairment 14 Short Term Goal (STG) Pt will improve DGI score to at least 17/24 to show improved balance and dec risk for falls. 05/28- STG Duration achieved 06/09 Vending Mechanic Goal (LTG) Pt will improve DGI score to at least 20/24 to show improved balance and low risk for falls. LTG Duration achieved 06/09 Assessment Summary Assessment Pt requires cues for trunk rotation during trunk rot exercises. She had improved knee ext and gait after manual Physical Therapy Plan Frequency and Duration Frequency of Treatment 2x/Week Duration of treatment (weeks) 10 Plan of Care Start Date 07/07/24 Plan of Care End Date 09/15/24 Next Visit Focus/Plan Next Note Type Progress Note Next Visit Plan cont to work on LE strength and manual to improve ability to build strength
--- NOTE | 2024-09-08 12:08 | PT.OTN ---
Current Diagnoses Other chronic pain (09/08/24) Spondylosis without myelopathy or radiculopathy, lumbar region (09/08/24) Other intervertebral disc degeneration, lumbar region (09/08/24) Cervicalgia (09/08/24) Low back pain, unspecified (09/08/24) Anesthesia of skin (09/08/24) Paresthesia of skin (09/08/24) Unsteadiness on feet (09/08/24) Other symptoms and signs involving the musculoskeletal system (09/08/24) Physical Therapy Treatment Note PT-OP-A Visit Information Start: 04/28/24 15:22 Freq: Status: Active Protocol: Document 09/08/24 09:04 [facility] (Rec: 09/08/24 09:08 [facility] [id number]) Out-Patient Physical Therapy Visit Information Visit Information Visit Type Progress Note Visit Start Time 09:05 Visit Stop Time 09:45 Visit Number 28 (09/04) Number of RETAIL SALES VITAMIN CONSULTANT Visits 0 PT-OP-B Current Condition Start: 04/28/24 15:22 Freq: Status: Active Protocol: Document 04/28/24 15:22 [facility] (Rec: 04/28/24 17:18 [facility] [id number]) Current Condition History of Current Condition Onset Date about 2 months w/hx prior Current Complaints back pain, thoracic pain, body stiffness History of Current Condition Pt has had a lot of stress d/t past week having memory issues, and DIL having MCKEON and possible fluid in brain and dog being sick. Pt reports significant weakness in BUEs and LEs. Limited overhead B UE ROM. cervical, thoracic and lumbar MRIs looked okay except degenerative changes. MRI of head WNL. Pt reports last wed was really weak and legs collapse and she crumpled around garbage can and she couldn't straighten back up and had to lift her up . She has tingling for about 3 weeks where it was waking her up at night. It felt like pulsating from upper back into fingertips and all the way to toes. That has lessened some. Feel like trunk is going to be frozen. Has been not exercising but is exhausted. Did try the bike slowly and not for long and can do it. Has not been getting good sleep at night. Trying to keep busy since feels like if she stops, she will get too weak. Sometimes between shoulder blades and in lumbar area is painful. Pt had GI issues in spring and winter including nausesa but it is gone. Still having instances of voice change. She saw provider at w/spray up nose and throat. She has to go to GI doctor and has an appt Jun 10 along w/ May 26 Neurologist appt. Has a couple tests set for mid May. Pt walks dog 2x/day still but only 3 blocks and slowly and uses cane. Pt typically I w/o AD. Cane use inside most of the time now. Treatment Goals Patient/Caregiver Goals improve strength; back to exercising PT-OP-C Subjective Start: 04/28/24 15:22 Freq: Status: Active Protocol: Document 09/08/24 09:04 [facility] (Rec: 09/08/24 09:08 [facility] [id number]) OP-PT Subjective Patient Comments Patient Comments Pt reports she is up to 30 min on the bike and on level 4 ( normal was a variable). Got out for one walk since last for about 40 min. PT-OP-E Functional Tests Start: 04/28/24 15:22 Freq: Status: Active Protocol: Document 07/07/24 14:37 [facility] (Rec: 07/07/24 15:21 [facility] [id number]) Functional Tests Functional Gait Assessment Score 20/30 PT-OP-F Manual Assessment Start: 04/28/24 15:22 Freq: Status: Active Protocol: Document 04/28/24 15:22 [facility] (Rec: 04/28/24 17:18 [facility] [id number]) Manual Assessments Other Manual Assessments Other Manual Assessments brachioradialis: R 0; L 1+; triceps 0 B; biceps 1+ B; knee ext & plantar flexion reflexes: L 1+; R 2+ PT-OP-G Mobility & Gait Start: 04/28/24 15:22 Freq: Status: Active Protocol: Document 04/28/24 15:22 [facility] (Rec: 04/28/24 17:18 [facility] [id number]) OP Mobility Evaluation Transfers Sit to Stand slow and must use UEs; dec control OP Gait Assessment Comments Gait Comments dec stance time B w/ lat leaning; slow gait and dec push off B-evidence for imbalance Stair Climbing Evaluation Comments Stair Climbing Comments use of rail w/recip step up/ down; significantly dec control down PT-OP-K Range of Motion Start: 04/28/24 15:22 Freq: Status: Active Protocol: Document 07/02/24 09:51 SP (Rec: 07/02/24 10:48 SP [id number]) Shoulder Goniometric Range of Motion Shoulder L Shoulder ROM WFL Yes Testing Position Supine Flexion 180 Comments seated and supine 180 deg AROM light tension end range but no painful supine r Shoulder ROM WFL Yes Testing Position Supine Flexion 180 Comments seated and supine 170 deg discomfort FF seated but can do full range PT-OP-M Strength Start: 04/28/24 15:22 Freq: Status: Active Protocol: Document 09/08/24 09:04 [facility] (Rec: 09/08/24 09:15 [facility] [id number]) Hip Strength Hip Manual Muscle Testing Right Flexion (L2) 4- Good- Abduction 4+ Good+ External Rotation 4 Good Internal Rotation 4+ Good+ Left Flexion (L2) 4 Good Abduction 4 Good External Rotation 4- Good- Internal Rotation 4+ Good+ Knee Strength Knee Manual Muscle Testing Right Flexion (S2) 4 Good Extension (L3) 5 Normal Left Flexion (S2) 4+ Good+ Extension (L3) 5 Normal Ankle/Foot Strength Ankle and Foot Manual Muscle Testing Right Dorsiflexion (L4) 5 Normal Plantarflexion (S1) 4- Good- Comments 8 full range heel raises Left Dorsiflexion (L4) 5 Normal Plantarflexion (S1) 4- Good- Comments 6 full range heel raises PT-OP-Q Treatments Start: 04/28/24 15:22 Freq: Status: Active Protocol: Document 09/08/24 09:04 [facility] (Rec: 09/08/24 09:15 [facility] [id number]) Therapeutic Exercises Sitting Exercises breathing Reps/Minutes 15 breaths Comments hands on lower ribs to cue for rib expansion and belly expansion seated trunk rotation Sitting Exercise Name AROM Side bilateral Equipment Used HEP Reps/Minutes x3 B Comments w/2 deep breaths during hold sit backs Side bilateral Reps/Minutes 10 Standing Exercises cat cow Standing Exercise Name ilene pose only Side bilateral Reps/Minutes 30 sec bent row Standing Exercise Name one UE on mat at counter height Side bilateral Resistance green Reps/Minutes X10 each UE Comments verbal and visual cues for scap paloff press Standing Exercise Name press then rotation Side bilateral Resistance green band (2 bands) Reps/Minutes 15 B ER Standing Exercise Name shoulder ; HEP Side bilateral Equipment Used [place] Reps/Minutes 10 squat Standing Exercise Name chair tap Side bilateral Resistance orange at knees Equipment Used chair behind Reps/Minutes 10 flex Standing Exercise Name B Habd w/flex Side bilateral Equipment Used [place] Reps/Minutes 10 Comments HEP row Side bilateral Equipment Used blue Reps/Minutes 15 Other Exercises isometrics Other Exercise Name B LE mMT PT-OP-T Assessment and Plan Start: 04/28/24 15:22 Freq: Status: Active Protocol: Document 09/08/24 09:04 [facility] (Rec: 09/08/24 09:08 [facility] [id number]) Physical Therapy Assessment Goals balance Impairment FGA Senior Care Goal (LTG) Improved FGA to at least 24 to show low risk for falls LTG Duration achieved 08/10 ROM Short Term Goal (STG) Pt will be able to do B shoulder flex to at least 100 deg actively STG Duration achieved 06/09 Respite Coordinator Goal (LTG) Pt will be able to do B shoulder flex to at least 140 deg actively w/o inc pain to allow greater ease w/overhead tasks. 06/09-some discomfort w/ overhead ROM but can move overhead 07/02/24: MET GOAL: BUE 180 deg AROM with little tension on L shld supine and R shld seated at end feel but not pain. LTG Duration 07/21 GOAL MET 07/02/24 activities Short Term Goal (STG) Pt will be able to tolerate biking 15 min a day w/o inc pain or significant fatigue for rest of day to show improved activity tolerance. 05/28-has been doing 5 min every now and then-feels okay. 06/09-10 min a day 07/02/24: able to ride stationary bike before went out of town for 15-20 min with no pain but hasn't tried since back. 07/07-hasn't been biking recently d/t R knee pain and feeling wiped out the last 5 days, was doing every other day for 20 min prior to that 08/10-limited time d/t holidays but doing more activity around house STG Duration achieved 09/08 Senior Care Goal (LTG) Pt will be able to resume walking daily about 1 mile w/o inc pain or feeling of unsteadiness or weakness 05/28-Has been able to do 4 blocks twice a day -increased some; did 1 mile walk 1x and felt okay-depends on day 07/02/24 was walking about 15- 20 min with no back pain but having R ankle pain. 07/07-20 min walks but not fast; ankle sore 08/10-limited time d/t holidays but doing more activity around house 09/08-1 walk a week LTG Duration 09/19 strength Short Term Goal (STG) Pt will be indep w/HEP STG Duration achieved advancing as able Senior Care Goal (LTG) Pt will score at least 4+/5 on all UE and LE MMT B to show improved strength to allow greater ease of function 05/28-improving 07/02/24 added side hip abd and segmental bridging for core and LE strengthening support balance and mobility. 07/07-improving 08/10-cont 09/08-improved LTG Duration /2 DGI Impairment Short Term Goal (STG) Pt will improve DGI score to at least 17/24 to show improved balance and dec risk for falls. 05/28- STG Duration achieved 21 06/09 Senior Care Goal (LTG) Pt will improve DGI score to at least 20/24 to show improved balance and low risk for falls. LTG Duration achieved 21 06/09 Assessment Summary Assessment Pt did well with exercise reveiw but did need some cues for form throughout. She is improving in strength and would benefit from cont PT for strength and stability in order to dec pain and improve mobility.S he has much improved function and activity tolerance since startign PT. Physical Therapy Plan Frequency and Duration Frequency of Treatment 2x/Week Duration of treatment (weeks) 3 Plan of Care Start Date 09/08/24 Plan of Care End Date 09/29/24 Therapeutic Interventions Therapeutic Interventions Balance Training,Canalithic Repositioning,Coordination Training,Gait Training,Home Exercise Program,Joint Mobilizations,Manual Therapy, Neuromuscular Re-education, Patient/Caregiver Education, Self-Care/Home Management,Soft Tissue Mobilization,Taping, Therapeutic Activities, Therapeutic Exercises, Vestibular Rehabilitation Modalities Cold Pack/Ice Massage,Electric Stimulation,Hot Packs Other Referrals/Consults Referrals/Consults Recommended Discussed with pt calling physician to have R lateral ankle assessed for pain having weightbearing activities. Next Visit Focus/Plan Next Note Type Treatment Note Next Visit Plan cont to work on LE strength and manual to improve ability to build strength REview HEP w/plan for DC at end of month
--- NOTE | 2024-09-08 12:09 | PT.OPPOC ---
Addendum entered and electronically signed by Katlyn Trevino PT 09/08/24 12:10: POC faxed Original Note: Physical, Occupational & Speech Therapy At [facility] Current Diagnoses Other chronic pain (09/08/24) Spondylosis without myelopathy or radiculopathy, lumbar region (09/08/24) Other intervertebral disc degeneration, lumbar region (09/08/24) Cervicalgia (09/08/24) Low back pain, unspecified (09/08/24) Anesthesia of skin (09/08/24) Paresthesia of skin (09/08/24) Unsteadiness on feet (09/08/24) Other symptoms and signs involving the musculoskeletal system (09/08/24) Visit Care Team Role Provider Type MARIBEL Saavedra Family Provider Advanced Radio Adjuster Primary Care Provider Referring Provider Specialty: Family Practice Address: Email: [email or web address] Minnie Stone DPM Attending Provider Physician Specialty: Orthopedics Orthopedic Surgery Podiatry Address: [address] [place] [address], [id number] Email: [email or web address] Plan Of Care PT-OP-B Current Condition Start: 04/28/24 15:22 Freq: Status: Active Protocol: Document 04/28/24 15:22 [facility] (Rec: 04/28/24 17:18 [facility] [id number]) Current Condition History of Current Condition Onset Date about 2 months w/hx prior Current Complaints back pain, thoracic pain, body stiffness History of Current Condition Pt has had a lot of stress d/t past week having memory issues, and DIL having MCKEON and possible fluid in brain and dog being sick. Pt reports significant weakness in BUEs and LEs. Limited overhead B UE ROM. cervical, thoracic and lumbar MRIs looked okay except degenerative changes. MRI of head WNL. Pt reports last wed was really weak and legs collapse and she crumpled around garbage can and she couldn't straighten back up and had to lift her up . She has tingling for about 3 weeks where it was waking her up at night. It felt like pulsating from upper back into fingertips and all the way to toes. That has lessened some. Feel like trunk is going to be frozen. Has been not exercising but is exhausted. Did try the bike slowly and not for long and can do it. Has not been getting good sleep at night. Trying to keep busy since feels like if she stops, she will get too weak. Sometimes between shoulder blades and in lumbar area is painful. Pt had GI issues in spring and winter including nausesa but it is gone. Still having instances of voice change. She saw provider at w/spray up nose and throat. She has to go to GI doctor and has an appt Jun 10 along / May 26 Neurologist appt. Has a couple tests set for mid May. Pt walks dog 2x/day still but only 3 blocks and slowly and uses cane. Pt typically I w/o AD. Cane use inside most of the time now. Treatment Goals Patient/Caregiver Goals improve strength; back to exercising PT-OP-T Assessment and Plan Start: 04/28/24 15:22 Freq: Status: Active Protocol: Document 09/08/24 09:04 [facility] (Rec: 09/08/24 09:08 [facility] [id number]) Physical Therapy Assessment Goals balance Impairment FGA 20/30 It Operations Manager Goal (LTG) Improved FGA to at least 24 to show low risk for falls LTG Duration achieved 08/10 ROM Short Term Goal (STG) Pt will be able to do B shoulder flex to at least 100 deg actively STG Duration achieved 06/09 Custodial Goal (LTG) Pt will be able to do B shoulder flex to at least 140 deg actively w/o inc pain to allow greater ease w/overhead tasks. 06/09-some discomfort w/ overhead ROM but can move overhead 07/02/24: MET GOAL: BUE 180 deg AROM with little tension on L shld supine and R shld seated at end feel but not pain. LTG Duration 07/21 GOAL MET 07/02/24 activities Short Term Goal (STG) Pt will be able to tolerate biking 15 min a day w/o inc pain or significant fatigue for rest of day to show improved activity tolerance. 05/28-has been doing 5 min every now and then-feels okay. 06/09-10 min a day 07/02/24: able to ride stationary bike before went out of town for 15-20 min with no pain but hasn't tried since back. 07/07-hasn't been biking recently d/t R knee pain and feeling wiped out the last 5 days, was doing every other day for 20 min prior to that 08/10-limited time d/t holidays but doing more activity around house STG Duration achieved 09/08 Custodial Goal (LTG) Pt will be able to resume walking daily about 1 mile w/o inc pain or feeling of unsteadiness or weakness 05/28-Has been able to do 4 blocks twice a day -increased some; did 1 mile walk 1x and felt okay-depends on day 07/02/24 was walking about 15- 20 min with no back pain but having R ankle pain. 07/07-20 min walks but not fast; ankle sore 08/10-limited time d/t holidays but doing more activity around house 09/08-1 walk a week LTG Duration 09/19 strength Short Term Goal (STG) Pt will be indep w/HEP STG Duration achieved advancing as able It Operations Manager Goal (LTG) Pt will score at least 4+/5 on all UE and LE MMT B to show improved strength to allow greater ease of function 05/28-improving 07/02/24 added side hip abd and segmental bridging for core and LE strengthening support balance and mobility. 07/07-improving 08/10-cont 09/08-improved LTG Duration 2/2 DGI Impairment Short Term Goal (STG) Pt will improve DGI score to at least 17/24 to show improved balance and dec risk for falls. 05/28- STG Duration achieved 06/09 It Operations Manager Goal (LTG) Pt will improve DGI score to at least 20/24 to show improved balance and low risk for falls. LTG Duration achieved 21 06/09 Assessment Summary Assessment Pt did well with exercise reveiw but did need some cues for form throughout. She is improving in strength and would benefit from cont PT for strength and stability in order to dec pain and improve mobility.S he has much improved function and activity tolerance since startign PT. Physical Therapy Plan Frequency and Duration Frequency of Treatment 2x/Week Duration of treatment (weeks) 3 Plan of Care Start Date 09/08/24 Plan of Care End Date 09/29/24 Therapeutic Interventions Therapeutic Interventions Balance Training,Canalithic Repositioning,Coordination Training,Gait Training,Home Exercise Program,Joint Mobilizations,Manual Therapy, Neuromuscular Re-education, Patient/Caregiver Education, Self-Care/Home Management,Soft Tissue Mobilization,Taping, Therapeutic Activities, Therapeutic Exercises, Vestibular Rehabilitation Modalities Cold Pack/Ice Massage,Electric Stimulation,Hot Packs Other Referrals/Consults Referrals/Consults Recommended Discussed with pt calling physician to have R lateral ankle assessed for pain having weightbearing activities. Next Visit Focus/Plan Next Note Type Treatment Note Next Visit Plan cont to work on LE strength and manual to improve ability to build strength REview HEP w/plan for DC at end of month Plan of Care Dates Plan of Care Start Date 09/08/24 Plan of Care End Date 09/29/24 Electronically Signed by: Katlyn Trevino, PT 09/08/24 1341 If you are in agreement with this Plan of Care, please return a signed and dated copy. I have reviewed this Plan of Care and certify that the skilled therapy services above are required to meet the patient?s needs. Physician Signature Date Printed Name and Credentials Clinical Instructor Signature Printed Name and Credentials
--- NOTE | 2024-09-10 10:32 | PT.OTN ---
Current Diagnoses Other chronic pain (09/10/24) Spondylosis without myelopathy or radiculopathy, lumbar region (09/10/24) Other intervertebral disc degeneration, lumbar region (09/10/24) Cervicalgia (09/10/24) Low back pain, unspecified (09/10/24) Anesthesia of skin (09/10/24) Paresthesia of skin (09/10/24) Unsteadiness on feet (09/10/24) Other symptoms and signs involving the musculoskeletal system (09/10/24) Physical Therapy Treatment Note PT-OP-A Visit Information Start: 04/28/24 15:22 Freq: Status: Active Protocol: Document 09/10/24 09:50 [facility] (Rec: 09/10/24 10:32 [facility] [id number]) Out-Patient Physical Therapy Visit Information Visit Information Visit Type Treatment Note Visit Start Time 09:53 Visit Stop Time 10:31 Visit Number 29 (10/05) Number of HAND SURGEON Visits 0 PT-OP-B Current Condition Start: 04/28/24 15:22 Freq: Status: Active Protocol: Document 04/28/24 15:22 [facility] (Rec: 04/28/24 17:18 [facility] [id number]) Current Condition History of Current Condition Onset Date about 2 months w/hx prior Current Complaints back pain, thoracic pain, body stiffness History of Current Condition Pt has had a lot of stress d/t past week having memory issues, and DIL having MCKEON and possible fluid in brain and dog being sick. Pt reports significant weakness in BUEs and LEs. Limited overhead B UE ROM. cervical, thoracic and lumbar MRIs looked okay except degenerative changes. MRI of head WNL. Pt reports last wed was really weak and legs collapse and she crumpled around garbage can and she couldn't straighten back up and had to lift her up . She has tingling for about 3 weeks where it was waking her up at night. It felt like pulsating from upper back into fingertips and all the way to toes. That has lessened some. Feel like trunk is going to be frozen. Has been not exercising but is exhausted. Did try the bike slowly and not for long and can do it. Has not been getting good sleep at night. Trying to keep busy since feels like if she stops, she will get too weak. Sometimes between shoulder blades and in lumbar area is painful. Pt had GI issues in spring and winter including nausesa but it is gone. Still having instances of voice change. She saw provider at w/spray up nose and throat. She has to go to GI doctor and has an appt Jun 10 along w/ May 26 Neurologist appt. Has a couple tests set for mid May. Pt walks dog 2x/day still but only 3 blocks and slowly and uses cane. Pt typically I w/o AD. Cane use inside most of the time now. Treatment Goals Patient/Caregiver Goals improve strength; back to exercising PT-OP-C Subjective Start: 04/28/24 15:22 Freq: Status: Active Protocol: Document 09/10/24 09:50 [facility] (Rec: 09/10/24 10:32 [facility] [id number]) OP-PT Subjective Patient Comments Patient Comments pt reports she feels like her strength is getting better PT-OP-E Functional Tests Start: 04/28/24 15:22 Freq: Status: Active Protocol: Document 07/07/24 14:37 [facility] (Rec: 07/07/24 15:21 [facility] [id number]) Functional Tests Functional Gait Assessment Score 2030 PT-OP-F Manual Assessment Start: 04/28/24 15:22 Freq: Status: Active Protocol: Document 04/28/24 15:22 [facility] (Rec: 04/28/24 17:18 [facility] [id number]) Manual Assessments Other Manual Assessments Other Manual Assessments brachioradialis: R 0; L 1+; triceps 0 B; biceps 1+ B; knee ext & plantar flexion reflexes: L 1+; R 2+ PT-OP-G Mobility & Gait Start: 04/28/24 15:22 Freq: Status: Active Protocol: Document 04/28/24 15:22 [facility] (Rec: 04/28/24 17:18 [facility] [id number]) OP Mobility Evaluation Transfers Sit to Stand slow and must use UEs; dec control OP Gait Assessment Comments Gait Comments dec stance time B w/ lat leaning; slow gait and dec push off B-evidence for imbalance Stair Climbing Evaluation Comments Stair Climbing Comments use of rail w/recip step up/ down; significantly dec control down PT-OP-K Range of Motion Start: 04/28/24 15:22 Freq: Status: Active Protocol: Document 07/02/24 09:51 [facility] (Rec: 07/02/24 10:48 SP [id number]) Shoulder Goniometric Range of Motion Shoulder L Shoulder ROM WFL Yes Testing Position Supine Flexion 180 Comments seated and supine 180 deg AROM light tension end range but no painful supine r Shoulder ROM WFL Yes Testing Position Supine Flexion 180 Comments seated and supine 170 deg discomfort FF seated but can do full range PT-OP-M Strength Start: 04/28/24 15:22 Freq: Status: Active Protocol: Document 09/08/24 09:04 [facility] (Rec: 09/08/24 09:15 [facility] [id number]) Hip Strength Hip Manual Muscle Testing Right Flexion (L2) 4- Good- Abduction 4+ Good+ External Rotation 4 Good Internal Rotation 4+ Good+ Left Flexion (L2) 4 Good Abduction 4 Good External Rotation 4- Good- Internal Rotation 4+ Good+ Knee Strength Knee Manual Muscle Testing Right Flexion (S2) 4 Good Extension (L3) 5 Normal Left Flexion (S2) 4+ Good+ Extension (L3) 5 Normal Ankle/Foot Strength Ankle and Foot Manual Muscle Testing Right Dorsiflexion (L4) 5 Normal Plantarflexion (S1) 4- Good- Comments 8 full range heel raises Left Dorsiflexion (L4) 5 Normal Plantarflexion (S1) 4- Good- Comments 6 full range heel raises PT-OP-Q Treatments Start: 04/28/24 15:22 Freq: Status: Active Protocol: Document 09/10/24 09:50 [facility] (Rec: 09/10/24 10:32 [facility] [id number]) Therapeutic Exercises Sitting Exercises breathing Reps/Minutes 10 breaths Comments hands on lower ribs to cue for rib expansion and belly expansion Core Sitting Exercise Name Seated sit backs Side bilateral Reps/Minutes x10 Comments cues to engage core prior to initiating movement seated trunk rotation Sitting Exercise Name AROM Side bilateral Equipment Used HEP Reps/Minutes x3 B Comments w/2 deep breaths during hold Standing Exercises clamshells Standing Exercise Name foot on wall Side bilateral Reps/Minutes 10 cat cow Standing Exercise Name ilene pose only Side bilateral Reps/Minutes 30 sec paloff press Standing Exercise Name press then rotation Side bilateral Resistance green band (2 bands) Reps/Minutes 15 B squat Standing Exercise Name chair tap Side bilateral Resistance orange at knees Equipment Used chair behind Reps/Minutes 10 heel raises Standing Exercise Name SL Side bilateral Reps/Minutes 10 ea sidestep Standing Exercise Name sidestep Side bilateral Resistance [place] Reps/Minutes 10 feet X 2 each direction Comments HEP row Side bilateral Equipment Used blue Reps/Minutes 2x10 Comments cues scap L stretch Standing Exercise Name 1. hip flexor stretch 2. quad chair stretch Side bilateral Reps/Minutes 1 min ea Manual Therapy Treatment Consent Patient gave verbal consent for manual Yes treatment Soft Tissue Mobilization spine Body Location thoracic paraspinal & rhomboids Mobilization Type Cross-Friction,Rolling, Sustained Pressure,Other Intensity/Depth Moderate Body Position Sitting PT-OP-T Assessment and Plan Start: 04/28/24 15:22 Freq: Status: Active Protocol: Document 09/10/24 09:50 [facility] (Rec: 09/10/24 10:32 [facility] [id number]) Physical Therapy Assessment Goals balance Impairment FGA 20/30 Nursing Home Goal (LTG) Improved FGA to at least 24 to show low risk for falls LTG Duration achieved 08/10 ROM Short Term Goal (STG) Pt will be able to do B shoulder flex to at least 100 deg actively STG Duration achieved 06/09 Locomotive Firer Goal (LTG) Pt will be able to do B shoulder flex to at least 140 deg actively w/o inc pain to allow greater ease w/overhead tasks. 06/09-some discomfort w/ overhead ROM but can move overhead 07/02/24: MET GOAL: BUE 180 deg AROM with little tension on L shld supine and R shld seated at end feel but not pain. LTG Duration 07/21 GOAL MET 07/02/24 activities Short Term Goal (STG) Pt will be able to tolerate biking 15 min a day w/o inc pain or significant fatigue for rest of day to show improved activity tolerance. 05/28-has been doing 5 min every now and then-feels okay. 06/09-10 min a day 07/02/24: able to ride stationary bike before went out of town for 15-20 min with no pain but hasn't tried since back. 07/07-hasn't been biking recently d/t R knee pain and feeling wiped out the last 5 days, was doing every other day for 20 min prior to that 08/10-limited time d/t holidays but doing more activity around house STG Duration achieved 09/08 Locomotive Firer Goal (LTG) Pt will be able to resume walking daily about 1 mile w/o inc pain or feeling of unsteadiness or weakness 05/28-Has been able to do 4 blocks twice a day -increased some; did 1 mile walk 1x and felt okay-depends on day 07/02/24 was walking about 15- 20 min with no back pain but having R ankle pain. 07/07-20 min walks but not fast; ankle sore 08/10-limited time d/t holidays but doing more activity around house 09/08-1 walk a week LTG Duration 09/19 strength Short Term Goal (STG) Pt will be indep w/HEP STG Duration achieved advancing as able Nursing Home Goal (LTG) Pt will score at least 4+/5 on all UE and LE MMT B to show improved strength to allow greater ease of function 05/28-improving 07/02/24 added side hip abd and segmental bridging for core and LE strengthening support balance and mobility. 07/07-improving 08/10-cont 09/08-improved LTG Duration 2 Assessment Summary Assessment Pt required cues throughout exercises but does show overall improved perforamnce. Added notes to pt's HEP papers today. Physical Therapy Plan Frequency and Duration Frequency of Treatment 2x/Week Duration of treatment (weeks) 3 Plan of Care Start Date 09/08/24 Plan of Care End Date 09/29/24 Next Visit Focus/Plan Next Note Type Treatment Note Next Visit Plan cont to work on LE strength and manual to improve ability to build strength REview HEP w/plan for DC at end of month
--- NOTE | 2024-09-15 11:30 | PT.OTN ---
Current Diagnoses Other chronic pain (09/15/24) Spondylosis without myelopathy or radiculopathy, lumbar region (09/15/24) Other intervertebral disc degeneration, lumbar region (09/15/24) Cervicalgia (09/15/24) Low back pain, unspecified (09/15/24) Anesthesia of skin (09/15/24) Paresthesia of skin (09/15/24) Unsteadiness on feet (09/15/24) Other symptoms and signs involving the musculoskeletal system (09/15/24) Physical Therapy Treatment Note PT-OP-A Visit Information Start: 04/28/24 15:22 Freq: Status: Active Protocol: Document 09/15/24 09:51 [facility] (Rec: 09/15/24 11:29 [facility] [id number]) Out-Patient Physical Therapy Visit Information Visit Information Visit Type Treatment Note Visit Start Time 09:52 Visit Stop Time 10:30 Visit Number 30 (11/02) Number of CHICKEN HANDLER Visits 0 PT-OP-B Current Condition Start: 04/28/24 15:22 Freq: Status: Active Protocol: Document 04/28/24 15:22 [facility] (Rec: 04/28/24 17:18 [facility] [id number]) Current Condition History of Current Condition Onset Date about 2 months w/hx prior Current Complaints back pain, thoracic pain, body stiffness History of Current Condition Pt has had a lot of stress d/t past week having memory issues, and DIL having MCKEON and possible fluid in brain and dog being sick. Pt reports significant weakness in BUEs and LEs. Limited overhead B UE ROM. cervical, thoracic and lumbar MRIs looked okay except degenerative changes. MRI of head WNL. Pt reports last wed was really weak and legs collapse and she crumpled around garbage can and she couldn't straighten back up and had to lift her up . She has tingling for about 3 weeks where it was waking her up at night. It felt like pulsating from upper back into fingertips and all the way to toes. That has lessened some. Feel like trunk is going to be frozen. Has been not exercising but is exhausted. Did try the bike slowly and not for long and can do it. Has not been getting good sleep at night. Trying to keep busy since feels like if she stops, she will get too weak. Sometimes between shoulder blades and in lumbar area is painful. Pt had GI issues in spring and winter including nausesa but it is gone. Still having instances of voice change. She saw provider at w/spray up nose and throat. She has to go to GI doctor and has an appt Jun 10 along w/ May 26 Neurologist appt. Has a couple tests set for mid May. Pt walks dog 2x/day still but only 3 blocks and slowly and uses cane. Pt typically I w/o AD. Cane use inside most of the time now. Treatment Goals Patient/Caregiver Goals improve strength; back to exercising PT-OP-C Subjective Start: 04/28/24 15:22 Freq: Status: Active Protocol: Document 09/15/24 09:51 [facility] (Rec: 09/15/24 11:29 [facility] [id number]) OP-PT Subjective Patient Comments Patient Comments exercises went well. Notes some eye pain taht was transient at start of session PT-OP-E Functional Tests Start: 04/28/24 15:22 Freq: Status: Active Protocol: Document 07/07/24 14:37 [facility] (Rec: 07/07/24 15:21 [facility] [id number]) Functional Tests Functional Gait Assessment Score 20/30 PT-OP-F Manual Assessment Start: 04/28/24 15:22 Freq: Status: Active Protocol: Document 04/28/24 15:22 [facility] (Rec: 04/28/24 17:18 [facility] [id number]) Manual Assessments Other Manual Assessments Other Manual Assessments brachioradialis: R 0; L 1+; triceps 0 B; biceps 1+ B; knee ext & plantar flexion reflexes: L 1+; R 2+ PT-OP-G Mobility & Gait Start: 04/28/24 15:22 Freq: Status: Active Protocol: Document 04/28/24 15:22 [facility] (Rec: 04/28/24 17:18 [facility] [id number]) OP Mobility Evaluation Transfers Sit to Stand slow and must use UEs; dec control OP Gait Assessment Comments Gait Comments dec stance time B w/ lat leaning; slow gait and dec push off B-evidence for imbalance Stair Climbing Evaluation Comments Stair Climbing Comments use of rail w/recip step up/ down; significantly dec control down PT-OP-K Range of Motion Start: 04/28/24 15:22 Freq: Status: Active Protocol: Document 07/02/24 09:51 [facility] (Rec: 07/02/24 10:48 [facility] [id number]) Shoulder Goniometric Range of Motion Shoulder L Shoulder ROM WFL Yes Testing Position Supine Flexion 180 Comments seated and supine 180 deg AROM light tension end range but no painful supine r Shoulder ROM WFL Yes Testing Position Supine Flexion 180 Comments seated and supine 170 deg discomfort FF seated but can do full range PT-OP-M Strength Start: 04/28/24 15:22 Freq: Status: Active Protocol: Document 09/08/24 09:04 [facility] (Rec: 09/08/24 09:15 [facility] [id number]) Hip Strength Hip Manual Muscle Testing Right Flexion (L2) 4- Good- Abduction 4+ Good+ External Rotation 4 Good Internal Rotation 4+ Good+ Left Flexion (L2) 4 Good Abduction 4 Good External Rotation 4- Good- Internal Rotation 4+ Good+ Knee Strength Knee Manual Muscle Testing Right Flexion (S2) 4 Good Extension (L3) 5 Normal Left Flexion (S2) 4+ Good+ Extension (L3) 5 Normal Ankle/Foot Strength Ankle and Foot Manual Muscle Testing Right Dorsiflexion (L4) 5 Normal Plantarflexion (S1) 4- Good- Comments 8 full range heel raises Left Dorsiflexion (L4) 5 Normal Plantarflexion (S1) 4- Good- Comments 6 full range heel raises PT-OP-Q Treatments Start: 04/28/24 15:22 Freq: Status: Active Protocol: Document 09/15/24 09:51 [facility] (Rec: 09/15/24 11:29 [facility] [id number]) Therapeutic Exercises Sitting Exercises breathing Reps/Minutes 2x10 breaths Comments hands on lower ribs to cue for rib expansion and belly expansion Core Sitting Exercise Name Seated sit backs Side bilateral Reps/Minutes x15 Comments cues to engage core prior to initiating movement seated trunk rotation Sitting Exercise Name AROM Side bilateral Equipment Used HEP Reps/Minutes x6 B Comments w/2 deep breaths during hold Standing Exercises clamshells Standing Exercise Name foot on wall Side bilateral Reps/Minutes 10 cat cow Standing Exercise Name ilene pose only Side bilateral Reps/Minutes 30 sec paloff press Standing Exercise Name press then rotation Side bilateral Resistance green band (2 bands) Reps/Minutes 15 B ER Standing Exercise Name shoulder ; HEP Side bilateral Equipment Used koi Reps/Minutes 10 squat Standing Exercise Name chair tap Side bilateral Resistance green at knees Equipment Used chair behind Reps/Minutes 10 Comments cues feet hip width apart flex Standing Exercise Name B Habd w/flex Side bilateral Equipment Used koi Reps/Minutes 10 Comments HEP sidestep Standing Exercise Name sidestep Side bilateral Resistance koi Reps/Minutes 15ft each direction Comments HEP row Side bilateral Equipment Used blue Reps/Minutes 2x10 Comments cues scap L stretch Standing Exercise Name 1. hip flexor stretch 2. quad chair stretch Side bilateral Reps/Minutes 1 min ea Self-Care/Home Management Treatment Activities Self-Care/Home Management Activities 143/73 PT-OP-T Assessment and Plan Start: 04/28/24 15:22 Freq: Status: Active Protocol: Document 09/15/24 09:51 [facility] (Rec: 09/15/24 11:29 [facility] [id number]) Physical Therapy Assessment Goals balance Impairment FGA Shared Services And Outsourcing Manager Goal (LTG) Improved FGA to at least 24 to show low risk for falls LTG Duration achieved 08/10 ROM Short Term Goal (STG) Pt will be able to do B shoulder flex to at least 100 deg actively STG Duration achieved 06/09 Shared Services And Outsourcing Manager Goal (LTG) Pt will be able to do B shoulder flex to at least 140 deg actively w/o inc pain to allow greater ease w/overhead tasks. 06/09-some discomfort w/ overhead ROM but can move overhead 07/02/24: MET GOAL: BUE 180 deg AROM with little tension on L shld supine and R shld seated at end feel but not pain. LTG Duration 07/21 GOAL MET 07/02/24 activities Short Term Goal (STG) Pt will be able to tolerate biking 15 min a day w/o inc pain or significant fatigue for rest of day to show improved activity tolerance. 05/28-has been doing 5 min every now and then-feels okay. 06/09-10 min a day 07/02/24: able to ride stationary bike before went out of town for 15-20 min with no pain but hasn't tried since back. 07/07-hasn't been biking recently d/t R knee pain and feeling wiped out the last 5 days, was doing every other day for 20 min prior to that 08/10-limited time d/t holidays but doing more activity around house STG Duration achieved 09/08 [facility] Goal (LTG) Pt will be able to resume walking daily about 1 mile w/o inc pain or feeling of unsteadiness or weakness 05/28-Has been able to do 4 blocks twice a day -increased some; did 1 mile walk 1x and felt okay-depends on day 07/02/24 was walking about 15- 20 min with no back pain but having R ankle pain. 07/07-20 min walks but not fast; ankle sore 08/10-limited time d/t holidays but doing more activity around house 09/08-1 walk a week LTG Duration 09/19 strength Short Term Goal (STG) Pt will be indep w/HEP STG Duration achieved advancing as able Shared Services And Outsourcing Manager Goal (LTG) Pt will score at least 4+/5 on all UE and LE MMT B to show improved strength to allow greater ease of function 05/28-improving 07/02/24 added side hip abd and segmental bridging for core and LE strengthening support balance and mobility. 07/07-improving 08/10-cont 09/08-improved LTG Duration 2 Assessment Summary Assessment Pt did well with exercises w/ less cues today. IMproved form but does still need reminders for specifics w/exercises Physical Therapy Plan Frequency and Duration Frequency of Treatment 2x/Week Duration of treatment (weeks) 3 Plan of Care Start Date 09/08/24 Plan of Care End Date 09/29/24 Next Visit Focus/Plan Next Note Type Treatment Note Next Visit Plan cont to work on LE strength and manual to improve ability to build strength REview HEP w/plan for DC at end of month
--- NOTE | 2024-09-17 09:50 | PT.OTN ---
Current Diagnoses Other chronic pain (09/17/24) Spondylosis without myelopathy or radiculopathy, lumbar region (09/17/24) Other intervertebral disc degeneration, lumbar region (09/17/24) Cervicalgia (09/17/24) Low back pain, unspecified (09/17/24) Anesthesia of skin (09/17/24) Paresthesia of skin (09/17/24) Unsteadiness on feet (09/17/24) Other symptoms and signs involving the musculoskeletal system (09/17/24) Physical Therapy Treatment Note PT-OP-A Visit Information Start: 04/28/24 15:22 Freq: Status: Active Protocol: Document 09/17/24 09:13 [facility] (Rec: 09/17/24 09:50 [facility] [id number]) Out-Patient Physical Therapy Visit Information Visit Information Visit Type Treatment Note Visit Start Time 09:06 Visit Stop Time 09:45 Visit Number 31 (11/02) Number of TAX ACCOUNTING ASSISTANT Visits 0 PT-OP-B Current Condition Start: 04/28/24 15:22 Freq: Status: Active Protocol: Document 04/28/24 15:22 [facility] (Rec: 04/28/24 17:18 [facility] [id number]) Current Condition History of Current Condition Onset Date about 2 months w/hx prior Current Complaints back pain, thoracic pain, body stiffness History of Current Condition Pt has had a lot of stress d/t past week having memory issues, and DIL having MCKEON and possible fluid in brain and dog being sick. Pt reports significant weakness in BUEs and LEs. Limited overhead B UE ROM. cervical, thoracic and lumbar MRIs looked okay except degenerative changes. MRI of head WNL. Pt reports last wed was really weak and legs collapse and she crumpled around garbage can and she couldn't straighten back up and had to lift her up . She has tingling for about 3 weeks where it was waking her up at night. It felt like pulsating from upper back into fingertips and all the way to toes. That has lessened some. Feel like trunk is going to be frozen. Has been not exercising but is exhausted. Did try the bike slowly and not for long and can do it. Has not been getting good sleep at night. Trying to keep busy since feels like if she stops, she will get too weak. Sometimes between shoulder blades and in lumbar area is painful. Pt had GI issues in spring and winter including nausesa but it is gone. Still having instances of voice change. She saw provider at w/spray up nose and throat. She has to go to GI doctor and has an appt Jun 10 along w/ May 26 Neurologist appt. Has a couple tests set for mid May. Pt walks dog 2x/day still but only 3 blocks and slowly and uses cane. Pt typically I w/o AD. Cane use inside most of the time now. Treatment Goals Patient/Caregiver Goals improve strength; back to exercising PT-OP-C Subjective Start: 04/28/24 15:22 Freq: Status: Active Protocol: Document 09/17/24 09:13 [facility] (Rec: 09/17/24 09:50 [facility] [id number]) OP-PT Subjective Patient Comments Patient Comments Pt reports feels good about exercises PT-OP-E Functional Tests Start: 04/28/24 15:22 Freq: Status: Active Protocol: Document 07/07/24 14:37 [facility] (Rec: 07/07/24 15:21 [facility] [id number]) Functional Tests Functional Gait Assessment Score 20/30 PT-OP-F Manual Assessment Start: 04/28/24 15:22 Freq: Status: Active Protocol: Document 04/28/24 15:22 [facility] (Rec: 04/28/24 17:18 [facility] [id number]) Manual Assessments Other Manual Assessments Other Manual Assessments brachioradialis: R 0; L 1+; triceps 0 B; biceps 1+ B; knee ext & plantar flexion reflexes: L 1+; R 2+ PT-OP-G Mobility & Gait Start: 04/28/24 15:22 Freq: Status: Active Protocol: Document 04/28/24 15:22 [facility] (Rec: 04/28/24 17:18 [facility] [id number]) OP Mobility Evaluation Transfers Sit to Stand slow and must use UEs; dec control OP Gait Assessment Comments Gait Comments dec stance time B w/ lat leaning; slow gait and dec push off B-evidence for imbalance Stair Climbing Evaluation Comments Stair Climbing Comments use of rail w/recip step up/ down; significantly dec control down PT-OP-K Range of Motion Start: 04/28/24 15:22 Freq: Status: Active Protocol: Document 07/02/24 09:51 [facility] (Rec: 07/02/24 10:48 [facility] [id number]) Shoulder Goniometric Range of Motion Shoulder L Shoulder ROM WFL Yes Testing Position Supine Flexion 180 Comments seated and supine 180 deg AROM light tension end range but no painful supine r Shoulder ROM WFL Yes Testing Position Supine Flexion 180 Comments seated and supine 170 deg discomfort FF seated but can do full range PT-OP-M Strength Start: 04/28/24 15:22 Freq: Status: Active Protocol: Document 09/08/24 09:04 [facility] (Rec: 09/08/24 09:15 [facility] [id number]) Hip Strength Hip Manual Muscle Testing Right Flexion (L2) 4- Good- Abduction 4+ Good+ External Rotation 4 Good Internal Rotation 4+ Good+ Left Flexion (L2) 4 Good Abduction 4 Good External Rotation 4- Good- Internal Rotation 4+ Good+ Knee Strength Knee Manual Muscle Testing Right Flexion (S2) 4 Good Extension (L3) 5 Normal Left Flexion (S2) 4+ Good+ Extension (L3) 5 Normal Ankle/Foot Strength Ankle and Foot Manual Muscle Testing Right Dorsiflexion (L4) 5 Normal Plantarflexion (S1) 4- Good- Comments 8 full range heel raises Left Dorsiflexion (L4) 5 Normal Plantarflexion (S1) 4- Good- Comments 6 full range heel raises PT-OP-Q Treatments Start: 04/28/24 15:22 Freq: Status: Active Protocol: Document 09/17/24 09:13 [facility] (Rec: 09/17/24 09:50 [facility] [id number]) Therapeutic Exercises Sitting Exercises breathing Sitting Exercise Name PT hands over pt hands to help Reps/Minutes 2x10 breaths Comments hands on lower ribs to cue for rib expansion and belly expansion Standing Exercises clamshells Standing Exercise Name foot on wall Side bilateral Equipment Used orange band Reps/Minutes 10 paloff press Standing Exercise Name press then rotation Side bilateral Resistance green band (2 bands) Reps/Minutes 15 B push up Standing Exercise Name 1. wall 2. counter Side bilateral Reps/Minutes 1.4 2. 2x6 Comments HEP-cues back flex Standing Exercise Name B Habd w/flex Side bilateral Equipment Used lower [place] Reps/Minutes 2x10 Comments HEP-cues for form and not back ext row Side bilateral Equipment Used blue Reps/Minutes 2x10 Comments cues scap L stretch Standing Exercise Name hip flexor stretch Side bilateral Reps/Minutes 1 min eax 2 Comments inc time spent to get right position Manual Therapy Treatment Consent Patient gave verbal consent for manual Yes treatment Soft Tissue Mobilization Lats Body Location B lats, tspine paraspines, LT, rhomobids Mobilization Type Rolling PT-OP-T Assessment and Plan Start: 04/28/24 15:22 Freq: Status: Active Protocol: Document 09/17/24 09:13 [facility] (Rec: 09/17/24 09:50 [facility] [id number]) Physical Therapy Assessment Goals balance Impairment FGA [facility] Goal (LTG) Improved FGA to at least 24 to show low risk for falls LTG Duration achieved 08/10 ROM Short Term Goal (STG) Pt will be able to do B shoulder flex to at least 100 deg actively STG Duration achieved 06/09 [facility] Goal (LTG) Pt will be able to do B shoulder flex to at least 140 deg actively w/o inc pain to allow greater ease w/overhead tasks. 06/09-some discomfort w/ overhead ROM but can move overhead 07/02/24: MET GOAL: BUE 180 deg AROM with little tension on L shld supine and R shld seated at end feel but not pain. LTG Duration 07/21 GOAL MET 07/02/24 activities Short Term Goal (STG) Pt will be able to tolerate biking 15 min a day w/o inc pain or significant fatigue for rest of day to show improved activity tolerance. 05/28-has been doing 5 min every now and then-feels okay. 06/09-10 min a day 07/02/24: able to ride stationary bike before went out of town for 15-20 min with no pain but hasn't tried since back. 07/07-hasn't been biking recently d/t R knee pain and feeling wiped out the last 5 days, was doing every other day for 20 min prior to that 08/10-limited time d/t holidays but doing more activity around house STG Duration achieved 09/08 [facility] Goal (LTG) Pt will be able to resume walking daily about 1 mile w/o inc pain or feeling of unsteadiness or weakness 10/3-Has been able to do 4 blocks twice a day -increased some; did 1 mile walk 1x and felt okay-depends on day 07/02/24 was walking about 15- 20 min with no back pain but having R ankle pain. 07/07-20 min walks but not fast; ankle sore 08/10-limited time d/t holidays but doing more activity around house 09/08-1 walk a week LTG Duration 09/19 strength Short Term Goal (STG) Pt will be indep w/HEP STG Duration achieved advancing as able [facility] Goal (LTG) Pt will score at least 4+/5 on all UE and LE MMT B to show improved strength to allow greater ease of function 05/28-improving 07/02/24 added side hip abd and segmental bridging for core and LE strengthening support balance and mobility. 07/07-improving 08/10-cont 09/08-improved LTG Duration 2 Assessment Summary Assessment Pt cont to improve w/exercise perofrmance but focused on exercises taht challenge pt more today. She cont to struggle and need cue w/ breathing especially Physical Therapy Plan Frequency and Duration Frequency of Treatment 2x/Week Duration of treatment (weeks) 3 Plan of Care Start Date 09/08/24 Plan of Care End Date 09/29/24 Next Visit Focus/Plan Next Note Type Treatment Note Next Visit Plan cont to work on LE strength and manual to improve ability to build strength REview HEP w/plan for DC at end of month
--- NOTE | 2024-09-22 12:29 | PT.OTN ---
Current Diagnoses Other chronic pain (09/22/24) Spondylosis without myelopathy or radiculopathy, lumbar region (09/22/24) Other intervertebral disc degeneration, lumbar region (09/22/24) Cervicalgia (09/22/24) Low back pain, unspecified (09/22/24) Anesthesia of skin (09/22/24) Paresthesia of skin (09/22/24) Unsteadiness on feet (09/22/24) Other symptoms and signs involving the musculoskeletal system (09/22/24) Physical Therapy Treatment Note PT-OP-A Visit Information Start: 04/28/24 15:22 Freq: Status: Active Protocol: Document 09/22/24 08:14 AB (Rec: 09/22/24 12:29 AB [id number]) Out-Patient Physical Therapy Visit Information Visit Information Visit Type Treatment Note Visit Start Time 09:49 Visit Stop Time 10:33 Visit Number 32 Number of GARDENING MANAGER Visits 1 PT-OP-B Current Condition Start: 04/28/24 15:22 Freq: Status: Active Protocol: Document 04/28/24 15:22 [facility] (Rec: 04/28/24 17:18 [facility] [id number]) Current Condition History of Current Condition Onset Date about 2 months w/hx prior Current Complaints back pain, thoracic pain, body stiffness History of Current Condition Pt has had a lot of stress d/t past week having memory issues, and DIL having MCKEON and possible fluid in brain and dog being sick. Pt reports significant weakness in BUEs and LEs. Limited overhead B UE ROM. cervical, thoracic and lumbar MRIs looked okay except degenerative changes. MRI of head WNL. Pt reports last wed was really weak and legs collapse and she crumpled around garbage can and she couldn't straighten back up and had to lift her up . She has tingling for about 3 weeks where it was waking her up at night. It felt like pulsating from upper back into fingertips and all the way to toes. That has lessened some. Feel like trunk is going to be frozen. Has been not exercising but is exhausted. Did try the bike slowly and not for long and can do it. Has not been getting good sleep at night. Trying to keep busy since feels like if she stops, she will get too weak. Sometimes between shoulder blades and in lumbar area is painful. Pt had GI issues in spring and winter including nausesa but it is gone. Still having instances of voice change. She saw provider at w/spray up nose and throat. She has to go to GI doctor and has an appt Jun 10 along w/ May 26 Neurologist appt. Has a couple tests set for mid May. Pt walks dog 2x/day still but only 3 blocks and slowly and uses cane. Pt typically I w/o AD. Cane use inside most of the time now. Treatment Goals Patient/Caregiver Goals improve strength; back to exercising PT-OP-C Subjective Start: 04/28/24 15:22 Freq: Status: Active Protocol: Document 09/22/24 08:14 AB (Rec: 09/22/24 12:29 AB [id number]) OP-PT Subjective Patient Comments Patient Comments Patient reports she is the same. Into session with reports of 2/10 back pain, slightly antalgic gait. Patient comments she is sleep deprived, comments 4 friends recently and dog has been up in the middle of the night PT-OP-E Functional Tests Start: 04/28/24 15:22 Freq: Status: Active Protocol: Document 07/07/24 14:37 [facility] (Rec: 07/07/24 15:21 [facility] [id number]) Functional Tests Functional Gait Assessment Score 20/30 PT-OP-F Manual Assessment Start: 04/28/24 15:22 Freq: Status: Active Protocol: Document 04/28/24 15:22 [facility] (Rec: 04/28/24 17:18 [facility] [id number]) Manual Assessments Other Manual Assessments Other Manual Assessments brachioradialis: R 0; L 1+; triceps 0 B; biceps 1+ B; knee ext & plantar flexion reflexes: L 1+; R 2+ PT-OP-G Mobility & Gait Start: 04/28/24 15:22 Freq: Status: Active Protocol: Document 04/28/24 15:22 [facility] (Rec: 04/28/24 17:18 [facility] [id number]) OP Mobility Evaluation Transfers Sit to Stand slow and must use UEs; dec control OP Gait Assessment Comments Gait Comments dec stance time B w/ lat leaning; slow gait and dec push off B-evidence for imbalance Stair Climbing Evaluation Comments Stair Climbing Comments use of rail w/recip step up/ down; significantly dec control down PT-OP-K Range of Motion Start: 04/28/24 15:22 Freq: Status: Active Protocol: Document 07/02/24 09:51 SP (Rec: 07/02/24 10:48 SP [id number]) Shoulder Goniometric Range of Motion Shoulder L Shoulder ROM WFL Yes Testing Position Supine Flexion 180 Comments seated and supine 180 deg AROM light tension end range but no painful supine r Shoulder ROM WFL Yes Testing Position Supine Flexion 180 Comments seated and supine 170 deg discomfort FF seated but can do full range PT-OP-M Strength Start: 04/28/24 15:22 Freq: Status: Active Protocol: Document 09/08/24 09:04 LR (Rec: 09/08/24 09:15 [facility] [id number]) Hip Strength Hip Manual Muscle Testing Right Flexion (L2) 4- Good- Abduction 4+ Good+ External Rotation 4 Good Internal Rotation 4+ Good+ Left Flexion (L2) 4 Good Abduction 4 Good External Rotation 4- Good- Internal Rotation 4+ Good+ Knee Strength Knee Manual Muscle Testing Right Flexion (S2) 4 Good Extension (L3) 5 Normal Left Flexion (S2) 4+ Good+ Extension (L3) 5 Normal Ankle/Foot Strength Ankle and Foot Manual Muscle Testing Right Dorsiflexion (L4) 5 Normal Plantarflexion (S1) 4- Good- Comments 8 full range heel raises Left Dorsiflexion (L4) 5 Normal Plantarflexion (S1) 4- Good- Comments 6 full range heel raises PT-OP-Q Treatments Start: 04/28/24 15:22 Freq: Status: Active Protocol: Document 09/22/24 08:14 AB (Rec: 09/22/24 12:29 AB [id number]) Therapeutic Exercises Supine Exercises modified restorative pose with breathing from diaphragm Supine Exercise Name HEP Reps/Minutes 4-5 minutes Comments verbal cues for breathing for diaphragm Sitting Exercises breathing Reps/Minutes ~ 2 min Comments hands on lower ribs to cue for rib expansion and belly expansion Core Sitting Exercise Name Seated sit backs Side bilateral Reps/Minutes x10 seated trunk rotation Sitting Exercise Name AROM Side bilateral Equipment Used HEP Reps/Minutes x6 B Comments w/2 deep breaths during hold sit backs Side bilateral Reps/Minutes X10 Comments monit for pain Sit<>stand Sitting Exercise Name to chair tap Side bilateral Resistance shinnecock green level 3 band Reps/Minutes X10 X 2 Comments monitored for pain resisted scap retraction & ER Sitting Exercise Name seated Side bilateral Resistance TB #3 latex free Reps/Minutes 15 Comments cues gentle scap retraction Standing Exercises hip flexor stretch Reps/Minutes 30 sec each LE Comments VC to avoid toe out as able clamshells Standing Exercise Name foot on wall Side bilateral Equipment Used orange band Reps/Minutes 10 also X 10 w/o band paloff press Standing Exercise Name press then rotation Side bilateral Resistance green band (2 bands) Reps/Minutes 10 B flex Standing Exercise Name B Habd w/flex Side bilateral Equipment Used shinnecock Reps/Minutes 2x10 Comments HEP-cues for form and not back ext heel raises Standing Exercise Name ecc Side bilateral Reps/Minutes X5 ea Comments verbal and visual cues row Side bilateral Equipment Used blue Reps/Minutes 2x10 Comments verbal cues for shoulder width apart L stretch Standing Exercise Name L stretch Side bilateral Reps/Minutes 30 sec X 2 PT-OP-T Assessment and Plan Start: 04/28/24 15:22 Freq: Status: Active Protocol: Document 09/22/24 08:14 AB (Rec: 09/22/24 12:29 AB [id number]) Physical Therapy Assessment Goals balance Impairment FGA Take Down Sorter Goal (LTG) Improved FGA to at least 24 to show low risk for falls LTG Duration achieved 08/10 ROM Short Term Goal (STG) Pt will be able to do B shoulder flex to at least 100 deg actively STG Duration achieved 06/09 [facility] Goal (LTG) Pt will be able to do B shoulder flex to at least 140 deg actively w/o inc pain to allow greater ease w/overhead tasks. 06/09-some discomfort w/ overhead ROM but can move overhead 07/02/24: MET GOAL: BUE 180 deg AROM with little tension on L shld supine and R shld seated at end feel but not pain. LTG Duration 07/21 GOAL MET 07/02/24 activities Short Term Goal (STG) Pt will be able to tolerate biking 15 min a day w/o inc pain or significant fatigue for rest of day to show improved activity tolerance. 05/28-has been doing 5 min every now and then-feels okay. 06/09-10 min a day 07/02/24: able to ride stationary bike before went out of town for 15-20 min with no pain but hasn't tried since back. 07/07-hasn't been biking recently d/t R knee pain and feeling wiped out the last 5 days, was doing every other day for 20 min prior to that 08/10-limited time d/t holidays but doing more activity around house STG Duration achieved 09/08 [facility] Goal (LTG) Pt will be able to resume walking daily about 1 mile w/o inc pain or feeling of unsteadiness or weakness 05/28-Has been able to do 4 blocks twice a day -increased some; did 1 mile walk 1x and felt okay-depends on day 07/02/24 was walking about 15- 20 min with no back pain but having R ankle pain. 07/07-20 min walks but not fast; ankle sore 08/10-limited time d/t holidays but doing more activity around house 09/08-1 walk a week LTG Duration 09/19 strength Short Term Goal (STG) Pt will be indep w/HEP STG Duration achieved advancing as able [facility] Goal (LTG) Pt will score at least 4+/5 on all UE and LE MMT B to show improved strength to allow greater ease of function 05/28-improving 07/02/24 added side hip abd and segmental bridging for core and LE strengthening support balance and mobility. 07/07-improving 08/10-cont 09/08-improved LTG Duration 2/2 Assessment Summary Assessment Kristi reports back feels good. Discussed trial of progressing to every other day for HEP. Physical Therapy Plan Frequency and Duration Frequency of Treatment 2x/Week Duration of treatment (weeks) 3 Plan of Care Start Date 09/08/24 Plan of Care End Date 09/29/24 Next Visit Focus/Plan Next Note Type Treatment Note Next Visit Plan cont to work on LE strength and manual to improve ability to build strength REview HEP w/plan for DC at end of month/ Assess to to every other day for HEP
--- NOTE | 2024-09-24 09:04 | PT.OTN ---
Current Diagnoses Other chronic pain (09/24/24) Spondylosis without myelopathy or radiculopathy, lumbar region (09/24/24) Other intervertebral disc degeneration, lumbar region (09/24/24) Cervicalgia (09/24/24) Low back pain, unspecified (09/24/24) Anesthesia of skin (09/24/24) Paresthesia of skin (09/24/24) Unsteadiness on feet (09/24/24) Other symptoms and signs involving the musculoskeletal system (09/24/24) Physical Therapy Treatment Note PT-OP-A Visit Information Start: 04/28/24 15:22 Freq: Status: Active Protocol: Document 09/24/24 08:18 [facility] (Rec: 09/24/24 09:04 [facility] [id number]) Out-Patient Physical Therapy Visit Information Visit Information Visit Type Discharge Summary Visit Start Time 08:18 Visit Stop Time 08:58 Visit Number 33 Number of REAL ESTATE APPRAISER Visits 0 PT-OP-B Current Condition Start: 04/28/24 15:22 Freq: Status: Active Protocol: Document 04/28/24 15:22 [facility] (Rec: 04/28/24 17:18 [facility] [id number]) Current Condition History of Current Condition Onset Date about 2 months w/hx prior Current Complaints back pain, thoracic pain, body stiffness History of Current Condition Pt has had a lot of stress d/t past week having memory issues, and DIL having MCKEON and possible fluid in brain and dog being sick. Pt reports significant weakness in BUEs and LEs. Limited overhead B UE ROM. cervical, thoracic and lumbar MRIs looked okay except degenerative changes. MRI of head WNL. Pt reports last wed was really weak and legs collapse and she crumpled around garbage can and she couldn't straighten back up and had to lift her up . She has tingling for about 3 weeks where it was waking her up at night. It felt like pulsating from upper back into fingertips and all the way to toes. That has lessened some. Feel like trunk is going to be frozen. Has been not exercising but is exhausted. Did try the bike slowly and not for long and can do it. Has not been getting good sleep at night. Trying to keep busy since feels like if she stops, she will get too weak. Sometimes between shoulder blades and in lumbar area is painful. Pt had GI issues in spring and winter including nausesa but it is gone. Still having instances of voice change. She saw provider at w/spray up nose and throat. She has to go to GI doctor and has an appt Jun 10 along w/ May 26 Neurologist appt. Has a couple tests set for mid May. Pt walks dog 2x/day still but only 3 blocks and slowly and uses cane. Pt typically I w/o AD. Cane use inside most of the time now. Treatment Goals Patient/Caregiver Goals improve strength; back to exercising PT-OP-C Subjective Start: 04/28/24 15:22 Freq: Status: Active Protocol: Document 09/24/24 08:18 [facility] (Rec: 09/24/24 09:04 [facility] [id number]) OP-PT Subjective Patient Comments Patient Comments compliance w/HEP PT-OP-E Functional Tests Start: 04/28/24 15:22 Freq: Status: Active Protocol: Document 07/07/24 14:37 [facility] (Rec: 07/07/24 15:21 [facility] [id number]) Functional Tests Functional Gait Assessment Score PT-OP-F Manual Assessment Start: 04/28/24 15:22 Freq: Status: Active Protocol: Document 04/28/24 15:22 [facility] (Rec: 04/28/24 17:18 [facility] [id number]) Manual Assessments Other Manual Assessments Other Manual Assessments brachioradialis: R 0; L 1+; triceps 0 B; biceps 1+ B; knee ext & plantar flexion reflexes: L 1+; R 2+ PT-OP-G Mobility & Gait Start: 04/28/24 15:22 Freq: Status: Active Protocol: Document 04/28/24 15:22 [facility] (Rec: 04/28/24 17:18 [facility] [id number]) OP Mobility Evaluation Transfers Sit to Stand slow and must use UEs; dec control OP Gait Assessment Comments Gait Comments dec stance time B w/ lat leaning; slow gait and dec push off B-evidence for imbalance Stair Climbing Evaluation Comments Stair Climbing Comments use of rail w/recip step up/ down; significantly dec control down PT-OP-K Range of Motion Start: 04/28/24 15:22 Freq: Status: Active Protocol: Document 07/02/24 09:51 SP (Rec: 07/02/24 10:48 SP [id number]) Shoulder Goniometric Range of Motion Shoulder L Shoulder ROM WFL Yes Testing Position Supine Flexion 180 Comments seated and supine 180 deg AROM light tension end range but no painful supine r Shoulder ROM WFL Yes Testing Position Supine Flexion 180 Comments seated and supine 170 deg discomfort FF seated but can do full range PT-OP-M Strength Start: 04/28/24 15:22 Freq: Status: Active Protocol: Document 09/24/24 08:18 [facility] (Rec: 09/24/24 09:04 [facility] [id number]) Hip Strength Hip Manual Muscle Testing Right Flexion (L2) 4+ Good+ Abduction 4+ Good+ External Rotation 4 Good Internal Rotation 4+ Good+ Left Flexion (L2) 5 Normal Abduction 4+ Good+ External Rotation 4 Good Internal Rotation 5 Normal Knee Strength Knee Manual Muscle Testing Right Flexion (S2) 5 Normal Extension (L3) 5 Normal Left Flexion (S2) 5 Normal Extension (L3) 5 Normal Ankle/Foot Strength Ankle and Foot Manual Muscle Testing Right Dorsiflexion (L4) 5 Normal Plantarflexion (S1) 3+ Fair+ Comments 4 full range heel raises Left Dorsiflexion (L4) 5 Normal Plantarflexion (S1) 4- Good- Comments 4 full range heel raises PT-OP-Q Treatments Start: 04/28/24 15:22 Freq: Status: Active Protocol: Document 09/24/24 08:18 [facility] (Rec: 09/24/24 09:04 [facility] [id number]) Gym Equipment Cable Column (Body Solid) Lat Pull Down Details inc time for pt learning set up Resistance 2 Reps/Time 10 row Details inc time for pt learning set up Resistance 1 Reps/Time 15 Hip Adduction Details inc time for pt learning set up Resistance 2 Reps/Time 15 Hip Abduction Details inc time for pt learning set up Resistance 2 Reps/Time 15 Leg Curl Details inc time for pt learning set up Resistance 2 Reps/Time 15 Shuttle Recovery Bilateral Squats Resistance 75# (navy) Reps/Time 10 Therapeutic Exercises Sitting Exercises breathing Reps/Minutes 6 breathes Comments hands on lower ribs to cue for rib expansion and belly expansion Other Exercises isometrics Other Exercise Name B LE mMT Self-Care/Home Management Treatment Education Other Education 10 min: discussed options for classes and gym memberships and how that could help. Encouaged to cont exercsies every other dayand keep up walking and biking PT-OP-T Assessment and Plan Start: 04/28/24 15:22 Freq: Status: Active Protocol: Document 09/24/24 08:18 [facility] (Rec: 09/24/24 09:04 [facility] [id number]) Physical Therapy Assessment Goals balance Impairment FGA Cane Stripper Goal (LTG) Improved FGA to at least 24 to show low risk for falls LTG Duration achieved 08/10 ROM Short Term Goal (STG) Pt will be able to do B shoulder flex to at least 100 deg actively STG Duration achieved 06/09 [facility] Goal (LTG) Pt will be able to do B shoulder flex to at least 140 deg actively w/o inc pain to allow greater ease w/overhead tasks. 06/09-some discomfort w/ overhead ROM but can move overhead 07/02/24: MET GOAL: BUE 180 deg AROM with little tension on L shld supine and R shld seated at end feel but not pain. LTG Duration 07/21 GOAL MET 07/02/24 activities Short Term Goal (STG) Pt will be able to tolerate biking 15 min a day w/o inc pain or significant fatigue for rest of day to show improved activity tolerance. 05/28-has been doing 5 min every now and then-feels okay. 06/09-10 min a day 07/02/24: able to ride stationary bike before went out of town for 15-20 min with no pain but hasn't tried since back. 07/07-hasn't been biking recently d/t R knee pain and feeling wiped out the last 5 days, was doing every other day for 20 min prior to that 08/10-limited time d/t holidays but doing more activity around house STG Duration achieved 09/08 Cane Stripper Goal (LTG) Pt will be able to resume walking daily about 1 mile w/o inc pain or feeling of unsteadiness or weakness 05/28-Has been able to do 4 blocks twice a day -increased some; did 1 mile walk 1x and felt okay-depends on day 07/02/24 was walking about 15- 20 min with no back pain but having R ankle pain. 07/07-20 min walks but not fast; ankle sore 08/10-limited time d/t holidays but doing more activity around house 09/08-1 walk a week LTG Duration achieved-has done some walks and doing biking strength Short Term Goal (STG) Pt will be indep w/HEP STG Duration achieved advancing as able [facility] Goal (LTG) Pt will score at least 4+/5 on all UE and LE MMT B to show improved strength to allow greater ease of function 05/28-improving 07/02/24 added side hip abd and segmental bridging for core and LE strengthening support balance and mobility. 07/07-improving 08/10-cont 09/08-improved LTG Duration improved but will cont w/HEP Assessment Summary Assessment Pt has made a lot of improvements with PT w/ improved strength and balance and return to full function. She is indep w/HEP and is now DC to HEP. DID well with intro to gym equipment Physical Therapy Plan Discharge Physical Therapy Discharge Reasons Goals Met
== END 2024-09-24 14:28 | disposition home or self-care (01) ==
LOC: PHYS 08:15
PROVIDERS: Family Provider Nurse Practitioner; PCP Nurse Practitioner; Referring Provider Nurse Practitioner; Visit Provider Podiatrist
DX: R20.0 Anesthesia of skin (principal); R20.2 Paresthesia of skin; R29.898 Other symptoms and signs involving the musculoskeletal system; M54.50 Low back pain, unspecified; G89.29 Other chronic pain; M47.816 Spondylosis without myelopathy or radiculopathy, lumbar region; M51.36 Other intervertebral disc degeneration, lumbar region; R26.81 Unsteadiness on feet; M54.2 Cervicalgia
CPT/HCPCS: 97110; 97112; 97140; 97163; 97535

== ENCOUNTER → 2025-06-25 14:18 | Outpatient (CLI) | payer MEDICARE, OTHER, SELFPAY ==
[2023-10-23 14:52] VITALS: BMI 36.1
[2025-06-25 15:38] LABS: Alanine Aminotransferase 28 IU/L (<35); Albumin 4.6 g/dL (3.5-5.0); Albumin Globulin Ratio 1.8 (1.0-2.8); Alkaline Phosphatase 71 U/L (38-126); Blood Urea Nitrogen 14 mg/dL (7-17); Calcium 9.4 mg/dL (8.4-10.2); Carbon Dioxide 27 mmol/L (22-32); Chloride 102 mmol/L (98-107); Estimated Glomerular Filt Rate > 60 mL/min (>60); Globulin 2.6 g/dL (1.7-4.1); Glucose 101 mg/dL (70-99); HEMOLYSIS 22 (0-50); Magnesium 1.9 mg/dL (1.6-2.3); Phosphorous 3.5 mg/dL (2.8-4.1); Potassium 3.8 mmol/L (3.4-5.1); Sodium 137 mmol/L (137-145); Total Protein 7.2 g/dL (6.3-8.2)
== END ==
PROVIDERS: Family Provider Nurse Practitioner; PCP Family Medicine; Referring Provider Family Medicine; Visit Provider Psychiatry & Neurology Neurology
DX: R53.1 Weakness (principal); G72.3 Periodic paralysis
CPT/HCPCS: 36415; 80053; 82330; 83735; 83970; 84100

== ENCOUNTER 2025-08-14 08:48 | Emergency (ER) | payer MEDICARE, OTHER, SELFPAY ==
[2023-10-23 14:52] VITALS: BMI 36.1
[2025-08-14 08:54] VITALS: BP 163/75; PULSE 75; RESP 16; TEMP 36.4; O2SAT 98; BMI 35.2
--- NOTE | 2025-08-14 08:58 | DI.RAD.S_ITS ---
PROCEDURE: XR KNEE RT 3V INDICATIONS: knee pain/ clicking/ medial pain TECHNIQUE: 3 views of the knee were acquired. COMPARISON: [facility], CR, KNEE 3V RIGHT, 10/11/2015, 10:29. FINDINGS: Bones: Patient is status post right total knee arthroplasty. Right knee alignment is anatomic. No gross hardware loosening or failure. No acute fracture or dislocation. No patellar subluxation. No suspicious bony lesions. Soft tissues: No signet joint effusion. No suspicious soft tissue calcifications. IMPRESSION: No acute right knee fracture or dislocation. Prior right total knee arthroplasty. No gross hardware loosening or failure. No significant joint effusion. Dictated by: Hugh Montes De Oca M.D. on 08/14/2025 at 9:21 Approved by: Hugh Montes De Oca M.D. on 08/14/2025 at 9:22
--- NOTE | 2025-08-14 09:03 | ED.LOWEXIN ---
HPI - Extremity Injury (Lower) General Chief Complaint: Extremity Injury, Lower Stated Complaint: RT artificial knee-difficult bearing weight Time Seen by Provider: 08/14/25 09:01 History of Present Illness HPI Narrative: The patient is a 70 year old female who presents with acute onset right knee pain. She reports being in her usual state of health and pain free earlier today. Her past medical history is notable for a right total knee replacement 5 years ago, a DVT in 2019, and chronic low back pain. While walking and performing her normal activities of daily living?without any increase in activity level or traumatic event?she experienced sudden onset of knee pain. She can ambulate without a walker, but states she has acute knee pain if she steps wrong. She has not taken any medications for the current knee pain. She states she became concerned due to the presence of orthopedic hardware and wanted to be evaluated. Related Data Home Medications ?Medication ?Instructions ?Recorded ?Confirmed rivaroxaban 10 mg tablet (Xarelto) 10 mg PO DAILY 07/20/20 07/16/25 omeprazole 40 mg capsule,delayed 40 mg PO BID 12/10/23 07/16/25 release sennosides 8.6 mg tablet (senna) 8.6 mg PO BEDTIME 07/09/24 07/16/25 Previous Rx's ?Medication ?Instructions ?Recorded ipratropium bromide 42 mcg (0.06 2 spray intranasal TID PRN allergy 11/23/22 %) nasal spray symptoms #15 mL blood-glucose meter #1 ea 04/11/23 lancets #100 ea 05/29/23 atorvastatin 40 mg tablet 40 mg PO ONCE PM #90 tabs 07/29/23 lancets 28 gauge (TRUEplus Lancets) #200 ea 07/29/23 losartan 25 mg tablet 25 mg PO DAILY for blood pressure 07/29/23 #90 tabs blood sugar diagnostic (True #100 ea 07/30/23 Metrix Glucose Test Strip) epinephrine 0.3 mg/0.3 mL 0.3 mg (0.3 mL) IM Q5-15M PRN 10/15/23 injection, auto-injector (EpiPen anaphylaxis #2 ea 2-Anam) gabapentin 300 mg capsule 600 mg (2 x 300 mg) PO TID 90 days 10/21/23 #540 caps Disabled Parking Permit See Rx Instructions .Route 04/01/24 .COMPLEX #1 unit levothyroxine 50 mcg tablet 50 mcg PO DAILY for disorder of 05/20/24 thyroid gland #90 tabs betamethasone dipropionate 0.05 % 1 applic topical .every 3 days PRN 04/21/25 topical cream itching #45 grams clobetasol 0.05 % topical ointment 1 applic topical .weekly #45 grams 07/16/25 estradiol 0.01% (0.1 mg/gram) 0.5 g vaginal QWEEK #42.5 grams 08/03/25 vaginal cream (Estrace) Allergies Allergy/AdvReac Type Severity Reaction Status Date / Time diazepam (From Valium) Allergy Severe Swelling Verified 07/09/24 14:00 of Lip/Tongue/Throat clindamycin Allergy Mild RASH Verified 07/09/24 14:00 doxycycline Allergy Unknown RASH Verified 07/09/24 14:00 azithromycin AdvReac Unknown THROW UP Verified 07/09/24 14:00 CT Contrast/Dye Allergy Severe Difficulty Uncoded 07/09/24 14:00 Breathing prednisone Allergy Severe Hallucinati Uncoded 07/09/24 14:00 ng Review of Systems Review of Systems Narrative: See HPI. Patient History Medical History Bilateral numbness and tingling of arms and legs Lower extremity weakness Prednisone adverse reaction Unsteady gait when walking Tingling of both upper extremities Orthostatic hypertension Lumbar facet arthropathy Lumbar degenerative disc disease Lumbar spondylosis Low back pain Diabetes type 2, controlled Chronic anticoagulation Schatzki's ring of distal esophagus (~03/20/21) Enteritis Sensorineural hearing loss, bilateral Subungual hematoma of great toe DVT (deep venous thrombosis) (~2013) DVT of axillary vein, chronic left Lichen planus Obstructive sleep apnea of adult Obesity (BMI 30-39.9) Hyperlipidemia Irritable larynx syndrome Osteoarthritis of right knee Plantar warts Eczema Osteoarthritis Sleep apnea (~2015) Shoulder pain Hepatitis B (~1976) History of ovarian cyst Infertility Fibroids Abnormal Pap smear of cervix Gastro-esophageal reflux disease with esophagitis Hayfever (1966) Measles Mumps Rosacea (2008) Acne (1970) History of torn meniscus of left knee (2012) Retinal detachment, left (2010) Retinal detachment, right (2011) PCOS (polycystic ovarian syndrome) (1974) Hypothyroidism (2009) Postoperative pulmonary embolism (2013) Anaphylactic reaction Surgical History Anesthesia History of surgical removal of meniscus of knee (09/03/13) History of eye surgery (05/15/12) History of eye surgery (02/27/11) History of sinus surgery (1987) Status post surgical removal of neoplasm of skin (1957) Status post endometrial ablation (2005) History of knee replacement (05/13/14) Status post loop electrosurgical excision procedure (LEEP) of cervix (01/2006) Status post delivery (06/1981) Status post delivery (12/1984) History of tonsillectomy (1964) Family History Father Heart disease Mother Osteoporosis Stroke Celiac disease Glaucoma COPD (chronic obstructive pulmonary disease) Emphysema lung Sister Age: 66 Alcoholic Drug abuse Hepatitis C Son No problems noted. Son [id number] transgender person PCOS (polycystic ovarian syndrome) Social History household members: spouse alcohol intake: current alcohol intake frequency: holidays/special occasions only Exam Narrative Exam Narrative: Vitals: Hypertensive, otherwise all other vitals within normal range. Gen: Well developed, well nourished, no acute distress Card: Regular rate Pulm: Regular respirations Abd: Obese Ext: No peripheral edema in bilateral lower extremities. Both knees visualized, has anterior linear surgical scars from knee replacement surgery. No edema, erythema, effusion, bilaterally. No tenderness to palpation long the joint lines, bilaterally. No pain with patellar grind. Right knee clicks with passive ROM. Neuro: A&O x 4, moving all 4 extremities spontaneously, antalgic gait, ambulates with walker Psych: Appropriate Initial Vital Signs Initial Vital Signs: Vital Signs Temperature 97.5 F L 08/14/25 08:54 Pulse Rate 75 08/14/25 08:54 Respiratory Rate 16 08/14/25 08:54 Blood Pressure 163/75 H 08/14/25 08:54 Pulse Oximetry 98 08/14/25 08:54 Oxygen Delivery Method Room Air 08/14/25 08:54 Course Orders Ordered: ED Orders 08/14/25 08:58 XR knee RT 3V Stat Vital Signs Vital signs: Vital Signs - 8 hr 08/14/25 08:54 Temperature 97.5 F L Pulse Rate 75 Respiratory Rate 16 Blood Pressure 163/75 H Pulse Oximetry 98 Oxygen Delivery Method Room Air MDM - Extremity Injury (Lower) Imaging Data Extremity x-ray #1: Radiologist's Impression: PROCEDURE: XR KNEE RT 3V TECHNIQUE: 3 views of the knee were acquired. COMPARISON: [facility], , KNEE 3V RIGHT, 10/11/2015, 10:29. FINDINGS: Bones: Patient is status post right total knee arthroplasty. Right knee alignment is anatomic. No gross hardware loosening or failure. No acute fracture or dislocation. No patellar subluxation. No suspicious bony lesions. Soft tissues: No signet joint effusion. No suspicious soft tissue calcifications. IMPRESSION: No acute right knee fracture or dislocation. Prior right total knee arthroplasty. No gross hardware loosening or failure. No significant joint effusion. [facility] Narrative Medical decision making narrative: The patient is a 70 year old female with a remote history of bilateral total knee replacements who presents with new onset right knee pain. There was no reported trauma, no increase in activity level, and no mechanical symptoms such as locking or instability. Differential diagnosis includes tendon strain, muscle strain, patellar tendinitis, and other soft tissue etiologies. Given her surgical history, hardware related complications were also considered. Plain radiographs were independently reviewed and demonstrated no acute fracture, dislocation, or hardware complication. No effusion or other acute osseous abnormality was identified. In the setting of atraumatic knee pain with normal imaging, the presentation is most consistent with a benign overuse or soft?tissue etiology. There is no evidence of acute hardware failure, septic joint, or other emergent pathology. Plan: -- Discussed findings with the patient, including the reassuring imaging. -- Recommended conservative management, including rest, activity modification, and supportive measures. -- Reviewed signs and symptoms that would warrant prompt reevaluation, such as worsening pain, swelling, redness, fever, or inability to bear weight. Discharge Plan Departure Patient Disposition: Home Clinical Impression: Knee strain Qualifiers: Encounter type: initial encounter Laterality: right Qualified Code(s): S86.911A - Strain of unspecified muscle(s) and tendon(s) at lower leg level, right leg, initial encounter Instructions: DI for Knee Sprain, DI for Knee Pain Activity Restrictions/Additional Instructions: You were seen in the emergency department for acute right knee pain. In the ER, x-ray did not reveal any damage or compromise to the hardware place for your knee replacement. Your physical exam was reassuring. Recommendation: -- Hexo-[id number]-jrysors oral pain control -- Physical therapy as needed Prescriptions: No Action ipratropium bromide 42 mcg (0.06 %) spray,non-aerosol 2 spray intranasal TID PRN (Reason: allergy symptoms) Qty: 15 0RF Rx Instructions: administer into each nostril Xarelto 10 mg tablet 10 mg PO DAILY (DME) lancets Misc See Rx Instructions .Route Qty: 100 0RF Rx Instructions: Test blood glucose once daily (DME) lancets [TRUEplus Lancets] 28 gauge misc See Rx Instructions .Route Qty: 200 2RF Rx Instructions: As directed atorvastatin 40 mg tablet 40 mg PO ONCE PM Qty: 90 3RF losartan 25 mg tablet 25 mg PO DAILY Qty: 90 3RF (DME) True Metrix Glucose Test Strip Strip See Rx Instructions .Route Qty: 100 3RF Rx Instructions: Test blood glucose 2-4 times daily levothyroxine 50 mcg tablet 50 mcg PO DAILY Qty: 90 3RF betamethasone dipropionate 0.05 % cream 1 applic topical .every 3 days PRN (Reason: itching) Qty: 45 3RF (DME) blood-glucose meter Kit See Rx Instructions .Route Qty: 1 0RF Rx Instructions: As directed sennosides [senna] 8.6 mg tablet 8.6 mg PO BEDTIME gabapentin 300 mg capsule 600 mg PO TID 90 Days Qty: 540 3RF Disabled Parking Permit See Rx Instructions .ROUTE .COMPLEX Qty: 1 0RF Rx Instructions: I find this patient to be medically disabled and qualify for disabled parking as indicated and signed on the accompanying disabled parking application for individuals. omeprazole 40 mg capsule,delayed release(DR/EC) 40 mg PO BID clobetasol 0.05 % ointment 1 applic topical .weekly Qty: 45 3RF estradiol [Estrace] 0.01 % (0.1 mg/gram) cream 0.5 g vaginal QWEEK Qty: 42.5 3RF Rx Instructions: apply nightly for 2 weeks then 2 times/week thereafter epinephrine [EpiPen 2-Anam] 0.3 mg/0.3 mL auto-injector 0.3 mg IM Q5-15M PRN (Reason: anaphylaxis) Qty: 2 0RF Rx Instructions: do not exceed 3 doses per episode Referrals: Li Fajardo DO [Primary Care Provider, Medical] Stand Alone Forms: Patient Portal/API
== END 2025-08-14 09:46 | disposition home or self-care (01) ==
PROVIDERS: Emergency Provider Student in an Organized Health Care Education/Training Program; Family Provider Nurse Practitioner; PCP Family Medicine
DX: S86.911A Strain of unspecified muscle(s) and tendon(s) at lower leg level, right leg, initial encounter (principal); Z96.651 Presence of right artificial knee joint; Z86.718 Personal history of other venous thrombosis and embolism; Z79.01 Long term (current) use of anticoagulants; X58.XXXA Exposure to other specified factors, initial encounter
CPT/HCPCS: 73562; 99281; 99283